=== PATIENT | female | born 1945 | race Caucasian/White ===

== ENCOUNTER 2018-11-08 03:55 | Inpatient (IN) | payer MEDICARE, BC ==
[~2018-11-08] VITALS: Ht 165.1 cm; Wt 69.3 kg
[2018-11-08] VITALS (67 sets, daily range): BP systolic 64–149; BP diastolic 42–103; PULSE 62–155; RESP 12–24
[~2018-11-08 03:55] MED LIST: ATORVASTATIN; FUROSEMIDE; LORAZEPAM; OXYBUTYNIN; PREM45 PO; TRAMADOL
[2018-11-08] MEDS ORDERED: DEXTROSE 50% 50 ML SYRINGE IV PRN ×6 (04:30→08:00)
[2018-11-08] MEDS ORDERED: HYDROCODONE/APAP (5/325) TAB GTB PRN (04:30)
[2018-11-08] MEDS ORDERED: SOD CHLORIDE 0.9% 1,000 ML IV ONE (04:30)
[2018-11-08] MEDS ORDERED: GLUCAGON 1 MG INJ IM PRN ×3 (04:30→08:00)
[2018-11-08] MEDS ORDERED: GLUCOSE GEL 15 GRAM TUBE PO PRN ×4 (05:00→08:00)
[2018-11-08] MEDS ORDERED: GLUCOSE GEL 15 GRAM TUBE BUCCAL PRN ×2 (05:00→08:00)
[2018-11-08] MEDS ORDERED: DIGOXIN 500 MCG INJ IV ONE ×3 (05:08→23:15)
[2018-11-08] MEDS ORDERED: ONDANSETRON 4 MG INJ IV PRN (05:30)
[2018-11-08] MEDS ORDERED: PENDING SANTYL ORDER FOR WOUND CARE XX PRN (05:30)
[2018-11-08] MEDS ORDERED: ZOLPIDEM 5 MG TAB PO PRN (05:30)
[2018-11-08] MEDS: SOD CHLORIDE 0.9% 1,000 ML IV SCH ×2 (05:53→14:43)
[2018-11-08] MEDS: LANSOPRAZOLE 30 MG CAP GTB SCH ×2 (06:48→17:33)
[2018-11-08] MEDS ORDERED: INSULIN ASPART [NOVOLOG] 3 ML PEN SC SCH (07:35)
[2018-11-08] MEDS: IPRATROPIUM (NEB) 0.5 MG/2.5 ML AMP HHN SCH ×3 (08:12→20:40)
[2018-11-08] MEDS: ALBUTEROL 0.083% (NEB) 2.5 MG/3 ML AMP HHN SCH ×3 (08:12→20:40)
[2018-11-08] MEDS: clonAZEPAM 0.5 MG TAB GTB SCH ×2 (08:21→20:35)
[2018-11-08] MEDS: ASCORBIC ACID 500 MG TAB GTB SCH ×2 (08:22→20:35)
[2018-11-08] MEDS: LACTOBACILLUS RHAMNOSUS CAP GTB SCH ×2 (08:22→20:35)
[2018-11-08] MEDS: ZINC SULFATE 220 MG CAP GTB SCH (08:22)
[2018-11-08] MEDS: MULTIVITAMINS 30 ML CUP GTB SCH (08:22)
[2018-11-08] MEDS: ASPIRIN 81 MG TAB GTB SCH ×2 (08:22→20:35)
[2018-11-08] MEDS: SERTRALINE 50 MG TAB GTB SCH (08:22)
[2018-11-08] MEDS: BACLOFEN 10 MG TAB GTB SCH (08:22)
[2018-11-08] MEDS: LEVETIRACETAM (100 MG/ML) 5ML CUP GTB SCH ×2 (08:22→20:36)
[2018-11-08] MEDS: CYANOCOBALAMIN 500 MCG TAB GTB SCH (08:22)
[2018-11-08] MEDS: DAKINS 0.0125%(1/40) 473 ML SOLUTION TP SCH ×2 (08:23→20:37)
[2018-11-08] MEDS: LISINOPRIL 5 MG TAB GTB SCH (08:29)
[2018-11-08] MEDS: POLYETHYLENE GLYCOL 17 GM PACKET GTB SCH ×2 (08:29→20:58)
[2018-11-08] MEDS: INSULIN ASPART [NOVOLOG] 3 ML PEN SC SCH ×4 (08:29→20:48)
[2018-11-08] MEDS: METOPROLOL 25 MG TAB GTB SCH ×2 (08:30→20:57)
[2018-11-08] MEDS: METOPROLOL 5 MG INJ IV SCH ×4 (08:30→20:58)
[2018-11-08] MEDS: CHOLECALCIFEROL 2,000 UNIT CAP GTB SCH (09:00)
[2018-11-08] MEDS: CEFTAZIDIME 2GM/50 ML (PMX) 50 ML IVPB SCH ×2 (09:45→17:33)
--- NOTE | 2018-11-08 11:47 | HP ---
Date/Time of Note Date/Time of Note DATE: 11/08/18 TIME: 11:15 Assessment/Plan VTE Prophylaxis Risk score (from [place])>0 risk: 7 SCD applied (from [place]): Yes SCD contraindicated: other Pharmacological prophylaxis: other Pharm contraindication: other Lines/Catheters IV [facility]ter Type (from [facility]): Mid Line Central line still needed: Yes Urinary Cath still in place: Yes Reason Cath still needed: urinary retention Assessment/Plan Assessment/Plan -Rapid Afib to Flutter; currently SR - admit to ICU - CARDIOLOGY CONSULT- Dr Monson notified - admission orders are done -Vent Dependent Respiratory Failure - Pulmonary consult- Dr Ko notified -Decub - right hip/sacrum; sp debridement - wound care consult - wound care per plastic sx - DIETARY consult -Penicillin and Morphine Allergy -Osteomyelitis right humeral head - ID Consult- Dr Pina notified - ortho consult appreciated - Azotemia - monitor Renal Functions; if elevated progressively- will get nephrology consult - SP stroke -Progressive supranuclear palsy - Diabetes -Glycemic control -Congestive heart failure, systolic, acute on chronic. - cardio on case -Hypotension, borderline. -Dysphagia with GT placement - aspiration precautions - Anemia of chronic disease- hgb stable 9.5 today - monitor CBC; S/S of bleeding - Acute metabolic and chronic encephalopathy - continue to monitor - On Keppra -seizure precautions - GI prophylaxis - on Prevacid - DVT prophylaxis - pt is on ASA 81 mg daily - Anticipate back to [place] when stable Critical care time spent is 55 minutes. Plan of care discussed with staff. Further recommendations based on clinical course. Patient is seen in collaboration with Dr. Shannon. Result Diagram: 11/08/18 0445 11/08/18 0445 Results 24hrs Laboratory Tests Test 11/08/18 04:45 11/08/18 08:21 White Blood Count 6.3 Red Blood Count 3.72 L Hemoglobin 9.5 L Hematocrit 31.4 L Mean Corpuscular Volume 84.4 Mean Corpuscular Hemoglobin 25.5 L Mean Corpuscular Hemoglobin Concent 30.3 L Red Cell Distribution Width 17.4 H Platelet Count 237 # Mean Platelet Volume 11.6 H Immature Granulocytes % 0.300 Neutrophils % 68.7 Lymphocytes % 19.1 Monocytes % 6.5 Eosinophils % 4.8 Basophils % 0.6 Nucleated Red Blood Cells % 0.0 Immature Granulocytes # 0.020 Neutrophils # 4.3 Lymphocytes # 1.2 Monocytes # 0.4 Eosinophils # 0.3 Basophils # 0.0 Nucleated Red Blood Cells # 0.0 Sodium Level 140 Potassium Level 4.6 Chloride Level 103 Carbon Dioxide Level 28 Anion Gap 9 Blood Urea Nitrogen 26 H Creatinine 0.34 L Est Glomerular Filtrat Rate mL/min Glucose Level 149 Lactic Acid Level 1.2 Calcium Level 9.2 Phosphorus Level 3.6 Magnesium Level 2.1 Total Bilirubin 0.2 Direct Bilirubin 0.00 Indirect Bilirubin 0.2 Aspartate Amino Transf (AST/SGOT) 14 L Alanine Aminotransferase (ALT/SGPT) 9 L Alkaline Phosphatase 167 H Total Protein 6.7 Albumin 3.2 L Globulin 3.50 H Albumin/Globulin Ratio 0.91 Bedside Glucose 101 HPI/ROS Admit Date/Time Admit Date/Time Nov 08, 2018 at 03:55 Hx of Present Illness This is a 73 years old female with progressive subnuclear palsy, chronic encephalopathy, dysphagia status post G-tube, chronic respiratory failure, status post tracheostomy, diabetes mellitus, osteomyelitis of the right humerus decubitus ulcer status post recent debridement. Also past history of cardiomyopathy with mildly depressed left ventricular ejection, approximately 40% to 45% by echo October 2018. Patient got transferred from [facility] as she developed rapid atrial fibrillation and hypertension and was transferred to [facility]. Patient is admitted in ICU. Patient has episodes of atrial fibrillation with rapid ventricular response and recently has converted to sinus rhythm with her SBP 101. The patient is not able to provide any history 2/2/ being chronic encephalopathic. Patient is admitted in ICU under Dr Shannon for further treatment and evaluation. All appropriate consult- Pulmonary, cardiology, general surgery are consulted. Plan of care dw staff. ROS Subjective hx not possible: pt non-verbal, pt critical status PMH/Family/Social Past Medical History Progressive supranuclear palsy Osteoarthritis Anemia Medical History: congestive heart failure (Diastolic), diabetes, hypertension Medications Current Medications Sodium Chloride 1,000 ml @ 100 mls/hr Q10H IV Last administered on 11/08/18at 05:53; Admin Dose 100 MLS/HR; Start 11/08/18 at 05:30 Acetaminophen (Tylenol Liquid) 650 mg Q6H PRN GTB PAIN AND/OR INFLAMMATION; Start 11/08/18 at 22:00 Albuterol (Proventil 0.083% (Neb)) 2.5 mg Q6H RESP THERAPY HHN Last administered on 11/08/18 08:12; Admin Dose 2.5 MG; Start 11/08/18 at 08:00 Ascorbic Acid (Vitamin C) 500 mg BID GTB Last administered on 11/08/18 08:22; Admin Dose 500 MG; Start 11/08/18 at 09:00 Aspirin (Aspirin) 81 mg BID GTB Last administered on 11/08/18 08:22; Admin Dose 81 MG; Start 11/08/18 at 09:00 Baclofen (Lioresal) 20 mg DAILY GTB Last administered on 11/08/18 08:22; Admin Dose 20 MG; Start 11/08/18 at 09:00 Ceftazidime/ Dextrose 50 ml @ 100 mls/hr Q8H IVPB Last administered on 11/08/18 09:45; Admin Dose 100 MLS/HR; Start 11/08/18 at 10:00 Cholecalciferol (Vitamin D) 2,000 unit DAILY GTB ; Start 11/08/18 at 09:00 Clonazepam (Klonopin) 0.5 mg BID GTB Last administered on 11/08/18 08:21; Admin Dose 0.5 MG; Start 11/08/18 at 09:00 Cyanocobalamin (Vitamin B12) 500 mcg DAILY GTB Last administered on 11/08/18 08:22; Admin Dose 500 MCG; Start 11/08/18 at 09:00 Acetaminophen/ Hydrocodone Bitart ([place] (5/325)) 1 tab Q4H PRN GTB MODERATE PAIN LEVEL 4-6; Start 11/08/18 at 04:30 Miscellaneous Information 1 ea NOTE XX ; Start 11/08/18 at 05:00 Ipratropium [place] (Atrovent 0.02% (Neb)) 0.5 mg Q6HWA RESP THERAPY HHN Last administered on 11/08/18 08:12; Admin Dose 0.5 MG; Start 11/08/18 at 08:00 Lactobacillus Acidophilus/ Rhamnosus (Culturelle) 1 cap BID GTB Last administered on 11/08/18 08:22; Admin Dose 1 CAP; Start 11/08/18 at 09:00 Lansoprazole (Prevacid) 30 mg BID@,18 GTB Last administered on 11/08/18at 06:48; Admin Dose 30 MG; Start 11/08/18 at 06:00 Levetiracetam (Keppra Liquid) 500 mg BID GTB Last administered on 11/08/18at 08:22; Admin Dose 500 MG; Start 11/08/18 at 09:00 Lisinopril (Zestril) 5 mg DAILY GTB ; Start 11/08/18 at 09:00 Metoprolol Tartrate (Lopressor) 25 mg BID GTB ; Start 11/08/18 at 09:00 Multivitamins (Multivitamin) 30 ml DAILY GTB Last administered on 11/08/18at 08:22; Admin Dose 30 ML; Start 11/08/18 at 09:00 Ondansetron HCl (Zofran Inj) 4 mg Q6H PRN IV NAUSEA AND/OR VOMITING; Start 11/08/18 at 05:30 Polyethylene Glycol (Miralax) 17 gm BID GTB ; Start 11/08/18 at 09:00 Sertraline HCl (Zoloft) 50 mg DAILY GTB Last administered on 11/08/18at 08:22; Admin Dose 50 MG; Start 11/08/18 at 09:00 Sodium Hypochlorite (Dakins Diluted (40)) 1 applic BID TP Last administered on 11/08/18at 08:23; Admin Dose 1 APPLIC; Start 11/08/18 at 09:00 Zinc Sulfate (Zinc Sulfate) 220 mg DAILY GTB Last administered on 11/08/18at 08:22; Admin Dose 220 MG; Start 11/08/18 at 09:00 Zolpidem Tartrate (Ambien) 5 mg HS PRN PO INSOMNIA; Start 11/08/18 at 05:30 Miscellaneous Information (Pending Santyl Order For Wound Care) This patient donato... PRN PRN XX WOUND CARE; Start 11/08/18 at 05:30 Digoxin (Digoxin) 250 mcg ONCE ONCE IV ; Start 11/08/18 at 23:15; Stop 11/08/18 at 23:16 Metoprolol Tartrate (Lopressor) 5 mg Q4H IV ; Start 11/08/18 at 09:00 Insulin Aspart (Novolog Insulin Pen) NOVOLOG *MILD* ALGORI... Q4 SC ; Start 11/08/18 at 09:00 Miscellaneous Information 1 ea NOTE XX ; Start 11/08/18 at 08:00 Glucose (Glutose) 15 gm Q15M PRN PO DECREASED GLUCOSE; Start 11/08/18 at 08:00 Glucose (Glutose) 22.5 gm Q15M PRN PO DECREASED GLUCOSE; Start 11/08/18 at 08:00 Dextrose (D50w Syringe) 25 ml Q15M PRN IV DECREASED GLUCOSE; Start 11/08/18 at 08:00 Dextrose (D50w Syringe) 50 ml Q15M PRN IV DECREASED GLUCOSE; Start 11/08/18 at 08:00 Glucagon (Glucagen) 1 mg Q15M PRN IM DECREASED GLUCOSE; Start 11/08/18 at 08:00 Glucose (Glutose) 15 gm Q15M PRN BUCCAL DECREASED GLUCOSE; Start 11/08/18 at 08:00 Coded Allergies: Penicillins (Verified Allergy, Unknown, 07/06/13) morphine (Verified Adverse Reaction, Mild, "LOOPY", 10/08/18) Uncoded Allergies: PLASTIC TAPE (Allergy, Unknown, 04/01/07) Past Surgical History SP hysterectomy SP trach 10/04/2018 SP gt placement SP excisional debridement - right hip and flfap reconstruction and Girdlestone procedure SP excisional debridement and removal of necrotic tissue on 09/2018 SP debridement right hip and sacral ulcers Family History Significant Family History: other (No history of sudden cardiac or early CAD) Social History Alcohol Use: none Smoking Status: Unknown if ever smoked Drug Use: none Exam/Review of Systems Vital Signs Vitals Vital Signs Date Temp Pulse Resp B/P (MAP) Pulse Ox O2 O2 Flow FiO2 Time Delivery Rate 11/08/18 76 20 101/61 100 Trach 10:45 (74) Collar 11/08/18 28 08:15 11/08/18 97.8 08:00 11/08/18 5.0 07:50 Intake and Output 11/07/18 11/07/18 11/08/18 1414:59 22:59 06:59 IntakeIntake Total 100 ml OutputOutput Total 550 ml BalanceBalance -450 ml Exam Constitutional: well developed, non-verbal, frail Psych: nl mood/affect Head: atraumatic Eyes: nl lids, nl sclera ENMT: nl external ears & nose Neck: other (trach) Respiratory: diminished breath sounds Cardiovascular: nl pulses, other (s1s2) Gastrointestinal: soft, non-tender, other Musculoskeletal: joint tenderness, muscle weakness, range of motion, other (BUE/ BLE contractures) Extremities: edema (trace edema ble) Neurological: unresponsive Skin: other (decubs) Lymph: nontender NADEEN CHO Nov 08, 2018 11:25
[2018-11-08] MEDS ORDERED: AMIODARONE 900 MG in DEXTROSE 5% 482 ML IV SCH (12:30)
[2018-11-08] MEDS ORDERED: AMIODARONE 150MG/D5W BOLUS 100 ML IV ONE (12:30)
--- NOTE | 2018-11-08 14:02 | CONS ---
Assessment/Plan Assessment/Plan Assessment/Plan (Daily) Chest x-ray is essentially unremarkable. Patient is on amiodarone drip. Assessment recommendations; 1. Patient with a history of severe chronic encephalopathy and chronic respiratory failure maintained on T-piece admitted for onset of A. fib with RVR. Converted to sinus rhythm. 2. Possibly sepsis from multiple decubitus ulcers, currently on appropriate antimicrobial regimen. 3. Hypertension, patient to receive a fluid bolus. May require pressor support. 4. History of stable seizure disorder. 5. Mild anemia. Give another half a liter normal saline fluid bolus. Obtain ABG. Consultation Date/Type/Reason Admit Date/Time Nov 08, 2018 at 03:55 Date of Consultation: Nov 08, 2018 Type of Consult Pulmonary/critical care Patient is a 73-year-old lady with history of severe chronic enteropathy and chronic respiratory failure transferred from [facility] because of onset of atrial fibrillation with RVR. Patient has history of advanced dementia and was unable to give any history by herself whatsoever. Patient however did not appear to be in any distress. Past medical history; 1. Severe encephalopathy 2. Chronic respiratory failure, maintained on T-piece. 3. Decubitus ulcers. 4. Anemia. 5. Seizure disorder. 6. G-tube placement. Medications; reviewed. Allergies; as outlined above. Family history, occupational history, social history is not available. Review of systems; unable to be obtained. General exam; elderly woman, on T-piece via tracheostomy, unresponsive, currently in no distress. Date/Time of Note DATE: 11/08/18 TIME: 13:58 Past Medical History Medical History: congestive heart failure (Diastolic), diabetes, hypertension Home Meds Reported Medications [Tramadol] No Conflict Check 06/26/13 [Oxybutynin] No Conflict Check 02/18/13 [Furosemide] No Conflict Check 02/18/13 [Atorvastatin] No Conflict Check 02/18/13 [Lorazepam] No Conflict Check 02/18/13 Estrogens Conjugated* (Premarin*) 0.45 Mg Tablet, 1.5 MG PO DAILY 02/18/13 Medications Current Medications Sodium Chloride 1,000 ml @ 100 mls/hr Q10H IV Last administered on 11/08/18at 05:53; Admin Dose 100 MLS/HR; Start 11/08/18 at 05:30 Acetaminophen (Tylenol Liquid) 650 mg Q6H PRN GTB PAIN AND/OR INFLAMMATION; Start 11/08/18 at 22:00 Albuterol (Proventil 0.083% (Neb)) 2.5 mg Q6H RESP THERAPY HHN Last administered on 11/08/18 08:12; Admin Dose 2.5 MG; Start 11/08/18 at 08:00 Ascorbic Acid (Vitamin C) 500 mg BID GTB Last administered on 11/08/18 08:22; Admin Dose 500 MG; Start 11/08/18 at 09:00 Aspirin (Aspirin) 81 mg BID GTB Last administered on 11/08/18 08:22; Admin Dose 81 MG; Start 11/08/18 at 09:00 Baclofen (Lioresal) 20 mg DAILY GTB Last administered on 11/08/18 08:22; Admin Dose 20 MG; Start 11/08/18 at 09:00 Ceftazidime/ Dextrose 50 ml @ 100 mls/hr Q8H IVPB Last administered on 11/08/18 09:45; Admin Dose 100 MLS/HR; Start 11/08/18 at 10:00 Cholecalciferol (Vitamin D) 2,000 unit DAILY GTB ; Start 11/08/18 at 09:00 Clonazepam (Klonopin) 0.5 mg BID GTB Last administered on 11/08/18 08:21; Admin Dose 0.5 MG; Start 11/08/18 at 09:00 Cyanocobalamin (Vitamin B12) 500 mcg DAILY GTB Last administered on 11/08/18 08:22; Admin Dose 500 MCG; Start 11/08/18 at 09:00 Acetaminophen/ Hydrocodone Bitart ([place] (5/325)) 1 tab Q4H PRN GTB MODERATE PAIN LEVEL 4-6; Start 11/08/18 at 04:30 Miscellaneous Information 1 ea NOTE XX ; Start 11/08/18 at 05:00 Ipratropium [place] (Atrovent 0.02% (Neb)) 0.5 mg Q6HWA RESP THERAPY HHN Last administered on 11/08/18 08:12; Admin Dose 0.5 MG; Start 11/08/18 at 08:00 Lactobacillus Acidophilus/ Rhamnosus (Culturelle) 1 cap BID GTB Last adm inistered on 11/08/18 08:22; Admin Dose 1 CAP; Start 11/08/18 at 09:00 Lansoprazole (Prevacid) 30 mg BID@,18 GTB Last administered on 11/08/18at 06:48; Admin Dose 30 MG; Start 11/08/18 at 06:00 Levetiracetam (Keppra Liquid) 500 mg BID GTB Last administered on 11/08/18 08:22; Admin Dose 500 MG; Start 11/08/18 at 09:00 Lisinopril (Zestril) 5 mg DAILY GTB ; Start 11/08/18 at 09:00 Metoprolol Tartrate (Lopressor) 25 mg BID GTB ; Start 11/08/18 at 09:00 Multivitamins (Multivitamin) 30 ml DAILY GTB Last administered on 11/08/18 08:22; Admin Dose 30 ML; Start 11/08/18 at 09:00 Ondansetron HCl (Zofran Inj) 4 mg Q6H PRN IV NAUSEA AND/OR VOMITING; Start 11/08/18 at 05:30 Polyethylene Glycol (Miralax) 17 gm BID GTB ; Start 11/08/18 at 09:00 Sertraline HCl (Zoloft) 50 mg DAILY GTB Last administered on 11/08/18 08:22; Admin Dose 50 MG; Start 11/08/18 at 09:00 Sodium Hypochlorite (Dakins Diluted (40)) 1 applic BID TP Last administered on 11/08/18 08:23; Admin Dose 1 APPLIC; Start 11/08/18 at 09:00 Zinc Sulfate (Zinc Sulfate) 220 mg DAILY GTB Last administered on 11/08/18 08:22; Admin Dose 220 MG; Start 11/08/18 at 09:00 Zolpidem Tartrate (Ambien) 5 mg HS PRN PO INSOMNIA; Start 11/08/18 at 05:30 Miscellaneous Information (Pending Santyl Order For Wound Care) This patient donato... PRN PRN XX WOUND CARE; Start 11/08/18 at 05:30 Digoxin (Digoxin) 250 mcg ONCE ONCE IV ; Start 11/08/18 at 23:15; Stop 11/08/18 at 23:16 Metoprolol Tartrate (Lopressor) 5 mg Q4H IV ; Start 11/08/18 at 09:00 Insulin Aspart (Novolog Insulin Pen) NOVOLOG *MILD* ALGORI... Q4 SC ; Start 11/08/18 at 09:00 Miscellaneous Information 1 ea NOTE XX ; Start 11/08/18 at 08:00 Glucose (Glutose) 15 gm Q15M PRN PO DECREASED GLUCOSE; Start 11/08/18 at 08:00 Glucose (Glutose) 22.5 gm Q15M PRN PO DECREASED GLUCOSE; Start 11/08/18 at 08:00 Dextrose (D50w Syringe) 25 ml Q15M PRN IV DECREASED GLUCOSE; Start 11/08/18 at 08:00 Dextrose (D50w Syringe) 50 ml Q15M PRN IV DECREASED GLUCOSE; Start 11/08/18 at 08:00 Glucagon (Glucagen) 1 mg Q15M PRN IM DECREASED GLUCOSE; Start 11/08/18 at 08:00 Glucose (Glutose) 15 gm Q15M PRN BUCCAL DECREASED GLUCOSE; Start 11/08/18 at 08:00 Amiodarone HCl 900 mg/Dextrose 500 ml @ 0 mls/hr Q0M IV ; Start 11/08/18 at 12:30 Allergies: Coded Allergies: Penicillins (Verified Allergy, Unknown, 07/06/13) morphine (Verified Adverse Reaction, Mild, "LOOPY", 10/08/18) Uncoded Allergies: PLASTIC TAPE (Allergy, Unknown, 04/01/07) Exam/Review of Systems Exam Vitals Vital Signs Date Temp Pulse Resp B/P (MAP) Pulse Ox O2 O2 Flow FiO2 Time Delivery Rate 11/08/18 66 15 80/47 (58) 100 Trach 13:30 Collar 11/08/18 7.0 28 12:17 11/08/18 99.0 12:00 Intake and Output 11/07/18 11/07/18 11/08/18 1515:00 23:00 07:00 IntakeIntake Total 200 ml OutputOutput Total 750 ml BalanceBalance -550 ml Exam H EENT exam; supple neck, no JVD. No lymphadenopathy. Midline trachea. No thyromegaly. Tracheostomy in place. Attached to T piece. Insertion site is clean. Chest exam; diminished but clear breath sounds. S1-S2 audible, no murmurs. Regular rhythm. Abdomen exam; soft, nondistended. No organomegaly. G-tube in place. Bowel sounds audible. Extremity exam; no edema. 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 TILE PICKER exam; patient is unresponsive. Results Result Diagram: 11/08/185 11/08/18 0445 Results 24hrs Laboratory Tests Test 11/08/18 04:45 11/08/18 08:21 11/08/18 12:20 White Blood Count 6.3 Red Blood Count 3.72 L Hemoglobin 9.5 L Hematocrit 31.4 L Mean Corpuscular Volume 84.4 Mean Corpuscular Hemoglobin 25.5 L Mean Corpuscular Hemoglobin Concent 30.3 L Red Cell Distribution Width 17.4 H Platelet Count 237 # Mean Platelet Volume 11.6 H Immature Granulocytes % 0.300 Neutrophils % 68.7 Lymphocytes % 19.1 Monocytes % 6.5 Eosinophils % 4.8 Basophils % 0.6 Nucleated Red Blood Cells % 0.0 Immature Granulocytes # 0.020 Neutrophils # 4.3 Lymphocytes # 1.2 Monocytes # 0.4 Eosinophils # 0.3 Basophils # 0.0 Nucleated Red Blood Cells # 0.0 Sodium Level 140 Potassium Level 4.6 Chloride Level 103 Carbon Dioxide Level 28 Anion Gap 9 Blood Urea Nitrogen 26 H Creatinine 0.34 L Est Glomerular Filtrat Rate mL/min Glucose Level 149 Lactic Acid Level 1.2 Calcium Level 9.2 Phosphorus Level 3.6 Magnesium Level 2.1 Total Bilirubin 0.2 Direct Bilirubin 0.00 Indirect Bilirubin 0.2 Aspartate Amino Transf (AST/SGOT) 14 L Alanine Aminotransferase (ALT/SGPT) 9 L Alkaline Phosphatase 167 H Total Protein 6.7 Albumin 3.2 L Globulin 3.50 H Albumin/Globulin Ratio 0.91 Bedside Glucose 101 115 Medications Medication Current Medications Sodium Chloride 1,000 ml @ 100 mls/hr Q10H IV Last administered on 11/08/18at 05:53; Admin Dose 100 MLS/HR; Start 11/08/18 at 05:30 Acetaminophen (Tylenol Liquid) 650 mg Q6H PRN GTB PAIN AND/OR INFLAMMATION; Start 11/08/18 at 22:00 Albuterol (Proventil 0.083% (Neb)) 2.5 mg Q6H RESP THERAPY HHN Last administered on 11/08/18at 08:12; Admin Dose 2.5 MG; Start 11/08/18 at 08:00 Ascorbic Acid (Vitamin C) 500 mg BID GTB Last administered on 11/08/18 08:22; Admin Dose 500 MG; Start 11/08/18 at 09:00 Aspirin (Aspirin) 81 mg BID GTB Last administered on 11/08/18 08:22; Admin Dose 81 MG; Start 11/08/18 at 09:00 Baclofen (Lioresal) 20 mg DAILY GTB Last administered on 11/08/18 08:22; Admin Dose 20 MG; Start 11/08/18 at 09:00 Ceftazidime/ Dextrose 50 ml @ 100 mls/hr Q8H IVPB Last administered on 11/08/18 09:45; Admin Dose 100 MLS/HR; Start 11/08/18 at 10:00 Cholecalciferol (Vitamin D) 2,000 unit DAILY GTB ; Start 11/08/18 at 09:00 Clonazepam (Klonopin) 0.5 mg BID GTB Last administered on 11/08/18 08:21; Admin Dose 0.5 MG; Start 11/08/18 at 09:00 Cyanocobalamin (Vitamin B12) 500 mcg DAILY GTB Last administered on 11/08/18 08:22; Admin Dose 500 MCG; Start 11/08/18 at 09:00 Acetaminophen/ Hydrocodone Bitart ([place] (5/325)) 1 tab Q4H PRN GTB MODERATE PAIN LEVEL 4-6; Start 11/08/18 at 04:30 Miscellaneous Information 1 ea NOTE XX ; Start 11/08/18 at 05:00 Ipratropium [place] (Atrovent 0.02% (Neb)) 0.5 mg Q6HWA RESP THERAPY HHN Last administered on 11/08/18 08:12; Admin Dose 0.5 MG; Start 11/08/18 at 08:00 Lactobacillus Acidophilus/ Rhamnosus (Culturelle) 1 cap BID GTB Last administered on 11/08/18 08:22; Admin Dose 1 CAP; Start 11/08/18 at 09:00 Lansoprazole (Prevacid) 30 mg BID@06,18 GTB Last administered on 11/08/18 06:48; Admin Dose 30 MG; Start 11/08/18 at 06:00 Levetiracetam (Keppra Liquid) 500 mg BID GTB Last administered on 11/08/18at 08:22; Admin Dose 500 MG; Start 11/08/18 at 09:00 Lisinopril (Zestril) 5 mg DAILY GTB ; Start 11/08/18 at 09:00 Metoprolol Tartrate (Lopressor) 25 mg BID GTB ; Start 11/08/18 at 09:00 Multivitamins (Multivitamin) 30 ml DAILY GTB Last administered on 11/08/18at 08:22; Admin Dose 30 ML; Start 11/08/18 at 09:00 Ondansetron HCl (Zofran Inj) 4 mg Q6H PRN IV NAUSEA AND/OR VOMITING; Start 11/08/18 at 05:30 Polyethylene Glycol (Miralax) 17 gm BID GTB ; Start 11/08/18 at 09:00 Sertraline HCl (Zoloft) 50 mg DAILY GTB Last administered on 11/08/18at 08:22; Admin Dose 50 MG; Start 11/08/18 at 09:00 Sodium Hypochlorite (Dakins Diluted (1/40)) 1 applic BID TP Last administered on 11/08/18at 08:23; Admin Dose 1 APPLIC; Start 11/08/18 at 09:00 Zinc Sulfate (Zinc Sulfate) 220 mg DAILY GTB Last administered on 11/08/18at 08:22; Admin Dose 220 MG; Start 11/08/18 at 09:00 Zolpidem Tartrate (Ambien) 5 mg HS PRN PO INSOMNIA; Start 11/08/18 at 05:30 Miscellaneous Information (Pending [facility] Order For Wound Care) This patient donato... PRN PRN XX WOUND CARE; Start 11/08/18 at 05:30 Digoxin (Digoxin) 250 mcg ONCE ONCE IV ; Start 11/08/18 at 23:15; Stop 11/08/18 at 23:16 Metoprolol Tartrate (Lopressor) 5 mg Q4H IV ; Start 11/08/18 at 09:00 Insulin Aspart (Novolog Insulin Pen) NOVOLOG *MILD* ALGORI... Q4 SC ; Start 11/08/18 at 09:00 Miscellaneous Information 1 ea NOTE XX ; Start 11/08/18 at 08:00 Glucose (Glutose) 15 gm Q15M PRN PO DECREASED GLUCOSE; Start 11/08/18 at 08:00 Glucose (Glutose) 22.5 gm Q15M PRN PO DECREASED GLUCOSE; Start 11/08/18 at 08:00 Dextrose (D50w Syringe) 25 ml Q15M PRN IV DECREASED GLUCOSE; Start 11/08/18 at 08:00 Dextrose (D50w Syringe) 50 ml Q15M PRN IV DECREASED GLUCOSE; Start 11/08/18 at 08:00 Glucagon (Glucagen) 1 mg Q15M PRN IM DECREASED GLUCOSE; Start 11/08/18 at 08:00 Glucose (Glutose) 15 gm Q15M PRN BUCCAL DECREASED GLUCOSE; Start 11/08/18 at 08:00 Amiodarone HCl 900 mg/Dextrose 500 ml @ 0 mls/hr Q0M IV ; Start 11/08/18 at 12:30 LINH TEJADA Nov 08, 2018 14:02
[2018-11-08] MEDS: ALBUMIN HUMAN 25% 100 ML IV SCH ×2 (15:19→22:46)
[2018-11-08] MEDS ORDERED: LIDOCAINE 1% (MPF) 5 ML VIAL SC ONE (15:30)
[2018-11-08] MEDS ORDERED: NORepinephrine 8MG/250 ML (PMX 250 ML IV SCH (15:30)
--- NOTE | 2018-11-08 18:01 | CONS ---
DATE OF ADMISSION: 11/08/2018 DATE OF CONSULTATION: 11/08/2018 REASON FOR CONSULTATION: Paroxysmal atrial fibrillation, atrial flutter after response. REQUESTING PHYSICIAN: Bryon Shannon M.D. HISTORY OF PRESENT ILLNESS: Ms. Rosales is a 73-year-old female with a history of chronic encephalo stacie, dysphagia status post G-tube, chronic respiratory failure, status post tracheostomy, diabetes mellitus, progressive supranuclear palsy, osteomyelitis of the right humerus decubitus ulcer status p ost recent debridement, cardiomyopathy with mildly depressed left ventricular ejection, approximately 40% to 45% by echo October 2018, who had been at [facility] and developed rapid atria l fibrillation and hypertension and was subsequently transferred to [facility] in [facility]. Since arrival, the patient has had recurrent bouts of atrial fibrillation with rapid ventricular response, most notably recently has converted to sinus rhythm and has had marginal blood pressures f rom systolic 80 to approximately 105. The patient at this time is chronic encephalopathic and does n ot respond to questions pertaining to chest pain or shortness of breath, PAST MEDICAL HISTORY: As above in HPI. MEDICATIONS CURRENTLY IN HOSPITAL: 1. Digoxin ____ IV push x1. 2. Vitamin C 500 mg b.i.d. 2. Aspirin 81 mg daily. 3. Baclofen. 4. Klonopin. 5. B12. 6. Keppra 500 b.i.d. 7. Zestril 5 mg daily. 8. Metoprolol 25 b.i.d. 9. Multivite. 10. Sodium hydrochloride ___ IV push. 8. Ambien p.r.n. 9. Mcgrath p.r.n. ALLERGIES 1. PENICILLIN. 2. MORPHINE. SOCIAL HISTORY: No current tobacco, ETOH or illicit drug use. FAMILY HISTORY: No history of sudden cardiac or early CAD. REVIEW OF SYSTEMS: As above in HPI. CONSTITUTIONAL: No fevers or chills. PULMONARY: Chronic respiratory failure, status post trach. GASTROINTESTINAL: Dysphagia, status post G-tube. GENITOURINARY: No hematuria. MUSCULOSKELETAL: Degenerative joint disease. PSYCHIATRIC: No documented psych history. NEUROLOGIC: Encephalopathy. ENDOCRINE: No documented history of diabetes mellitus. HEMATOLOGIC: Anemia. PHYSICAL EXAMINATION: VITAL SIGNS: Temperature of 97.8, blood pressure most recently 105.4, pulse 78, respiratory rate 21, satting 100%. GENERAL: The patient is awake, but not communicative, encephalopathic. NECK: Tracheostomy in place. CHEST: Upper airway transmitted rhonchus sounds. HEART: Regular rate and rhythm. Normal S1, S2, I/ systolic murmur, appear mild. ABDOMEN: Positive bowel sounds, soft, positive G-tube. EXTREMITIES: Contracted. Trace edema, 1+ pulses bilateral posterior tibial. LABORATORY DATA: Most recently from today, white count 6.3, hemoglobin 9.5, platelet count 237. Sod ium 140, potassium 4.6, creatinine 0.3, BUN 26, AST 14, ALT 9. IMAGING STUDIES: Chest x-ray from the 5th revealing new mild pulmonary vascular congestion and mild cardiomegaly. ECG: From the 5th revealed atrial fibrillation and flutter, rate of 127, normal axis, normal interva ls, nonspecific ST and T abnormalities. IMPRESSION: 1. Paroxysmal atrial fibrillation flutter with rapid ventricular response, currently in sinus rhythm but as of this morning was in rapid atrial fibrillation and flutter. 2. Hypotension, borderline. 3. Congestive heart failure, systolic, acute on chronic. 4. Cardiomyopathy with mildly depressed left ventricular ejection fraction, last approximately 40% t o 45% by echo 10/2018. 5. Encephalopathy, chronic. 6. Progressive supranuclear palsy. 7. Anemia. 8. Diabetes mellitus. RECOMMENDATIONS: 1. At this time, we would maintain patient in ICU on close monitoring. 2. We would complete workup of the heart, which shows paced complexes are not resulting in acute cor onary syndrome such as acute myocardial infarction. 3. We would continue the patient's current aspirin prophylaxis against cardiovascular events and con insurance underwriter initiation of full dose systemic anticoagulation as a contraindication exist. 4. Continue the patient's low-dose metoprolol as tolerated and we will decrease the patient's dose o f Zestril. 5. We will initiate the patient on amiodarone in an attempt to maintain the patient in sinus rhythm at this time. 6. Give patient gentle Lasix diuresis, following strict I's and O's to grade diuresis closely. 7. Continue the patient's bronchodilators. Continue the patient's antibiotics and follow up all cul ture data. Thank you for allowing me to take part in the care of this patient. I will continue to follow her ve ry closely with you, with further recommendations to be made as the patient progresses through her in patient hospital clinical course. Dictated By: MAITE MONTGOMERY/AMBREEN Conf#: [id number] DID#: [id number] CC: BRYON SHANNON MD;*EndCC*
--- NOTE | 2018-11-08 19:31 | CONS ---
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 s/p IV vancomycin x 6 weeks - colonization of the wound by pseudomonas - DM - A fib with RVR recommendations - ordered/pending: blood cultures x2, lactic acid, urinalysis and urine culture, resp culture - pseudomonas was a colonizer of the wound, and therefore ceftazidime may be discontinued - wound care - management d/w Pt's RN Katalina the critical care time I took to care for this Pt today was from 1830 to 1900 Consultation Date/Type/Reason Admit Date/Time Nov 08, 2018 at 03:55 Date of Consultation: Nov 08, 2018 Type of Consult ID Reason for Consultation h/o OM of R femoral head Requesting Provider: NADEEN CHO Date/Time of Note DATE: 11/08/18 TIME: 19:20 Hx of Present Illness This is a 74 yo female with progressive supranuclear palsy and chronic encephalopathy, who was originally admitted at [facility] for infection of decubitus wound of R hip. Pt was found out to have OM of R femoral head due to enterococci, and completed IV vancomycin for that at [facility]. Pt was briefly sent to [facility] for repeat debridement. The wound was deep but reportedly clean. As a result, antibiotics were discontinued. On 11/08/2018, Pt developed A fib with RVR and marginal BP. As a result Pt was transferred to ICU at [facility]. After transfer, her rhythm has been converted to sinus. As Pt was loaded on amiodarone, her BP started to decline. MANUEL Cho requested ID consultation on this Pt. Subjective hx not possible: pt non-verbal, pt critical, pt critical status Past Medical History Medical History: congestive heart failure (Diastolic), diabetes, hypertension Home Meds Reported Medications [Tramadol] No Conflict Check 06/26/13 [Oxybutynin] No Conflict Check 02/18/13 [Furosemide] No Conflict Check 02/18/13 [Atorvastatin] No Conflict Check 02/18/13 [Lorazepam] No Conflict Check 02/18/13 Estrogens Conjugated* (Premarin*) 0.45 Mg Tablet, 1.5 MG PO DAILY 02/18/13 Medications Current Medications Sodium Chloride 1,000 ml @ 100 mls/hr Q10H IV Last administered on 4/5/19at 14:43; Admin Dose 100 MLS/HR; Start 11/08/18 at 05:30 Acetaminophen (Tylenol Liquid) 650 mg Q6H PRN GTB PAIN AND/OR INFLAMMATION; Start 11/08/18 at 22:00 Albuterol (Proventil 0.083% (Neb)) 2.5 mg Q6H RESP THERAPY HHN Last administered on 11/08/18 14:28; Admin Dose 2.5 MG; Start 11/08/18 at 08:00 Ascorbic Acid (Vitamin C) 500 mg BID GTB Last administered on 11/08/18 08:22; Admin Dose 500 MG; Start 11/08/18 at 09:00 Aspirin (Aspirin) 81 mg BID GTB Last administered on 11/08/18 08:22; Admin Dose 81 MG; Start 11/08/18 at 09:00 Baclofen (Lioresal) 20 mg DAILY GTB Last administered on 11/08/18 08:22; Admin Dose 20 MG; Start 11/08/18 at 09:00 Cholecalciferol (Vitamin D) 2,000 unit DAILY GTB ; Start 11/08/18 at 09:00 Clonazepam (Klonopin) 0.5 mg BID GTB Last administered on 11/08/18 08:21; Admin Dose 0.5 MG; Start 11/08/18 at 09:00 Cyanocobalamin (Vitamin B12) 500 mcg DAILY GTB Last administered on 11/08/18 08:22; Admin Dose 500 MCG; Start 11/08/18 at 09:00 Acetaminophen/ Hydrocodone Bitart ([place] (5/325)) 1 tab Q4H PRN GTB MODERATE PAIN LEVEL 4-6; Start 11/08/18 at 04:30 Miscellaneous Information 1 ea NOTE XX ; Start 11/08/18 at 05:00 Ipratropium [place] (Atrovent 0.02% (Neb)) 0.5 mg Q6HWA RESP THERAPY HHN Last administered on 11/08/18 14:28; Admin Dose 0.5 MG; Start 11/08/18 at 08:00 Lactobacillus Acidophilus/ Rhamnosus (Culturelle) 1 cap BID GTB Last adm inistered on 11/08/18 08:22; Admin Dose 1 CAP; Start 11/08/18 at 09:00 Lansoprazole (Prevacid) 30 mg BID@06,18 GTB Last administered on 11/08/18at 17:33; Admin Dose 30 MG; Start 11/08/18 at 06:00 Levetiracetam (Keppra Liquid) 500 mg BID GTB Last administered on 11/08/18 08:22; Admin Dose 500 MG; Start 11/08/18 at 09:00 Lisinopril (Zestril) 5 mg DAILY GTB ; Start 11/08/18 at 09:00 Metoprolol Tartrate (Lopressor) 25 mg BID GTB ; Start 11/08/18 at 09:00 Multivitamins (Multivitamin) 30 ml DAILY GTB Last administered on 11/08/18 08:22; Admin Dose 30 ML; Start 11/08/18 at 09:00 Ondansetron HCl (Zofran Inj) 4 mg Q6H PRN IV NAUSEA AND/OR VOMITING; Start 11/08/18 at 05:30 Polyethylene Glycol (Miralax) 17 gm BID GTB ; Start 11/08/18 at 09:00 Sertraline HCl (Zoloft) 50 mg DAILY GTB Last administered on 11/08/18 08:22; Admin Dose 50 MG; Start 11/08/18 at 09:00 Sodium Hypochlorite (Dakins Diluted (40)) 1 applic BID TP Last administered on 11/08/18at 08:23; Admin Dose 1 APPLIC; Start 11/08/18 at 09:00 Zinc Sulfate (Zinc Sulfate) 220 mg DAILY GTB Last administered on 11/08/18at 08:22; Admin Dose 220 MG; Start 11/08/18 at 09:00 Zolpidem Tartrate (Ambien) 5 mg HS PRN PO INSOMNIA; Start 11/08/18 at 05:30 Miscellaneous Information (Pending [facility] Order For Wound Care) This patient donato... PRN PRN XX WOUND CARE; Start 11/08/18 at 05:30 Digoxin (Digoxin) 250 mcg ONCE ONCE IV ; Start 11/08/18 at 23:15; Stop 11/08/18 at 23:16 Metoprolol Tartrate (Lopressor) 5 mg Q4H IV ; Start 11/08/18 at 09:00 Insulin Aspart (Novolog Insulin Pen) NOVOLOG *MILD* ALGORI... Q4 SC Last administered on 11/08/18at 17:40; Admin Dose 1 UNIT; Start 11/08/18 at 09:00 Miscellaneous Information 1 ea NOTE XX ; Start 11/08/18 at 08:00 Glucose (Glutose) 15 gm Q15M PRN PO DECREASED GLUCOSE; Start 11/08/18 at 08:00 Glucose (Glutose) 22.5 gm Q15M PRN PO DECREASED GLUCOSE; Start 11/08/18 at 08:00 Dextrose (D50w Syringe) 25 ml Q15M PRN IV DECREASED GLUCOSE; Start 11/08/18 at 08:00 Dextrose (D50w Syringe) 50 ml Q15M PRN IV DECREASED GLUCOSE; Start 11/08/18 at 08:00 Glucagon (Glucagen) 1 mg Q15M PRN IM DECREASED GLUCOSE; Start 11/08/18 at 08:00 Glucose (Glutose) 15 gm Q15M PRN BUCCAL DECREASED GLUCOSE; Start 11/08/18 at 08:00 Amiodarone HCl 900 mg/Dextrose 500 ml @ 0 mls/hr Q0M IV Last administered on 11/08/18at 14:43; Admin Dose 33.3 MLS/HR; Start 11/08/18 at 12:30 Albumin Human 100 ml @ 100 mls/hr Q8H IV Last administered on 11/08/18at 15:19; Admin Dose 100 MLS/HR; Start 11/08/18 at 15:30; Stop 11/09/18 at 08:29 Norepinephrine 250 ml @ 1.875 mls/ hr TITRATE IV Last administered on 11/08/18at 15:44; Admin Dose 7.5 MLS/HR; Start 11/08/18 at 15:30 IV Flush (NS 10 ml) 10 ml PRN PRN IV IV PROTOCOL; Start 11/08/18 at 18:00 Allergies: Coded Allergies: Penicillins (Verified Allergy, Unknown, 07/06/13) morphine (Verified Adverse Reaction, Mild, "LOOPY", 10/08/18) Uncoded Allergies: PLASTIC TAPE (Allergy, Unknown, 04/01/07) Exam/Review of Systems Exam Vitals Vital Signs Date Temp Pulse Resp B/P (MAP) Pulse Ox O2 O2 Flow FiO2 Time Delivery Rate 11/08/18 76 21 146/66 100 Trach 19:00 (92) Collar 11/08/18 98.0 16:00 11/08/18 7.0 28 14:40 Intake and Output 11/07/18 11/07/18 11/08/18 1515:00 23:00 07:00 IntakeIntake Total 200 ml OutputOutput Total 750 ml BalanceBalance -550 ml Constitutional: non-verbal, frail Psych: confusion Head: normocephalic, atraumatic Eyes: nl conjunctiva, other (nystagmus) ENMT: nl external ears & nose, nl nasal mucosa & septum, mucosa pink and moist Neck: other (trach) Respiratory: diminished breath sounds Cardiovascular: regular rate and rhythm, nl pulses; No edema Gastrointestinal: soft, non-tender, other (GT) Genitourinary - Female: other (FC) Musculoskeletal: other (contractured upper extremities); No swelling Extremities: No edema Neurological: unresponsive Skin: No rash or lesions Results Result Diagram: 11/08/18 0445 11/08/18 0445 Results 24hrs Laboratory Tests Test 11/08/18 04:45 11/08/18 08:21 11/08/18 12:20 11/08/18 16:58 White Blood Count 6.3 Red Blood Count 3.72 L Hemoglobin 9.5 L Hematocrit 31.4 L Mean Corpuscular Volume 84.4 Mean Corpuscular 25.5 L Hemoglobin Mean Corpuscular 30.3 L Hemoglobin Concent Red Cell Distribution 17.4 H Width Platelet Count 237 # Mean Platelet Volume 11.6 H Immature Granulocytes % 0.300 Neutrophils % 68.7 Lymphocytes % 19.1 Monocytes % 6.5 Eosinophils % 4.8 Basophils % 0.6 Nucleated Red Blood 0.0 Cells % Immature Granulocytes # 0.020 Neutrophils # 4.3 Lymphocytes # 1.2 Monocytes # 0.4 Eosinophils # 0.3 Basophils # 0.0 Nucleated Red Blood 0.0 Cells # Sodium Level 140 Potassium Level 4.6 Chloride Level 103 Carbon Dioxide Level 28 Anion Gap 9 Blood Urea Nitrogen 26 H Creatinine 0.34 L Est Glomerular Filtrat Rate mL/min Glucose Level 149 Lactic Acid Level 1.2 Calcium Level 9.2 Phosphorus Level 3.6 Magnesium Level 2.1 Total Bilirubin 0.2 Direct Bilirubin 0.00 Indirect Bilirubin 0.2 Aspartate Amino 14 L Transf (AST/SGOT) Alanine 9 L Aminotransferase (ALT/SG PT) Alkaline Phosphatase 167 H Total Protein 6.7 Albumin 3.2 L Globulin 3.50 H Albumin/Globulin Ratio 0.91 Bedside Glucose 101 115 171 Test 11/08/18 18:40 Lactic Acid Level 0.8 Medications Medication Current Medications Sodium Chloride 1,000 ml @ 100 mls/hr Q10H IV Last administered on 11/08/18 14:43; Admin Dose 100 MLS/HR; Start 11/08/18 at 05:30 Acetaminophen (Tylenol Liquid) 650 mg Q6H PRN GTB PAIN AND/OR INFLAMMATION; Start 11/08/18 at 22:00 Albuterol (Proventil 0.083% (Neb)) 2.5 mg Q6H RESP THERAPY HHN Last administered on 11/08/18 14:28; Admin Dose 2.5 MG; Start 11/08/18 at 08:00 Ascorbic Acid (Vitamin C) 500 mg BID GTB Last administered on 11/08/18 08:22; Admin Dose 500 MG; Start 11/08/18 at 09:00 Aspirin (Aspirin) 81 mg BID GTB Last administered on 11/08/18 08:22; Admin Dose 81 MG; Start 11/08/18 at 09:00 Baclofen (Lioresal) 20 mg DAILY GTB Last administered on 11/08/18 08:22; Admin Dose 20 MG; Start 11/08/18 at 09:00 Cholecalciferol (Vitamin D) 2,000 unit DAILY GTB ; Start 11/08/18 at 09:00 Clonazepam (Klonopin) 0.5 mg BID GTB Last administered on 11/08/18 08:21; Admin Dose 0.5 MG; Start 11/08/18 at 09:00 Cyanocobalamin (Vitamin B12) 500 mcg DAILY GTB Last administered on 11/08/18 08:22; Admin Dose 500 MCG; Start 11/08/18 at 09:00 Acetaminophen/ Hydrocodone Bitart ([place] (5/325)) 1 tab Q4H PRN GTB MODERATE PAIN LEVEL 4-6; Start 11/08/18 at 04:30 Miscellaneous Information 1 ea NOTE XX ; Start 11/08/18 at 05:00 Ipratropium [place] (Atrovent 0.02% (Neb)) 0.5 mg Q6HWA RESP THERAPY HHN Last administered on 11/08/18 14:28; Admin Dose 0.5 MG; Start 11/08/18 at 08:00 Lactobacillus Acidophilus/ Rhamnosus (Culturelle) 1 cap BID GTB Last administered on 11/08/18 08:22; Admin Dose 1 CAP; Start 11/08/18 at 09:00 Lansoprazole (Prevacid) 30 mg BID@,18 GTB Last administered on 11/08/18 17:33; Admin Dose 30 MG; Start 11/08/18 at 06:00 Levetiracetam (Keppra Liquid) 500 mg BID GTB Last administered on 11/08/18 08:22; Admin Dose 500 MG; Start 11/08/18 at 09:00 Lisinopril (Zestril) 5 mg DAILY GTB ; Start 11/08/18 at 09:00 Metoprolol Tartrate (Lopressor) 25 mg BID GTB ; Start 11/08/18 at 09:00 Multivitamins (Multivitamin) 30 ml DAILY GTB Last administered on 11/08/18 08:22; Admin Dose 30 ML; Start 11/08/18 at 09:00 Ondansetron HCl (Zofran Inj) 4 mg Q6H PRN IV NAUSEA AND/OR VOMITING; Start 11/08/18 at 05:30 Polyethylene Glycol (Miralax) 17 gm BID GTB ; Start 11/08/18 at 09:00 Sertraline HCl (Zoloft) 50 mg DAILY GTB Last administered on 11/08/18 08:22; Admin Dose 50 MG; Start 11/08/18 at 09:00 Sodium Hypochlorite (Dakins Diluted ()) 1 applic BID TP Last administered on 11/08/18 08:23; Admin Dose 1 APPLIC; Start 11/08/18 at 09:00 Zinc Sulfate (Zinc Sulfate) 220 mg DAILY GTB Last administered on 11/08/18 08:22; Admin Dose 220 MG; Start 11/08/18 at 09:00 Zolpidem Tartrate (Ambien) 5 mg HS PRN PO INSOMNIA; Start 11/08/18 at 05:30 Miscellaneous Information (Pending [facility] Order For Wound Care) This patient donato... PRN PRN XX WOUND CARE; Start 11/08/18 at 05:30 Digoxin (Digoxin) 250 mcg ONCE ONCE IV ; Start 11/08/18 at 23:15; Stop 11/08/18 at 23:16 Metoprolol Tartrate (Lopressor) 5 mg Q4H IV ; Start 11/08/18 at 09:00 Insulin Aspart (Novolog Insulin Pen) NOVOLOG *MILD* ALGORI... Q4 SC Last administered on 11/08/18at 17:40; Admin Dose 1 UNIT; Start 11/08/18 at 09:00 Miscellaneous Information 1 ea NOTE XX ; Start 11/08/18 at 08:00 Glucose (Glutose) 15 gm Q15M PRN PO DECREASED GLUCOSE; Start 11/08/18 at 08:00 Glucose (Glutose) 22.5 gm Q15M PRN PO DECREASED GLUCOSE; Start 11/08/18 at 08:00 Dextrose (D50w Syringe) 25 ml Q15M PRN IV DECREASED GLUCOSE; Start 11/08/18 at 08:00 Dextrose (D50w Syringe) 50 ml Q15M PRN IV DECREASED GLUCOSE; Start 11/08/18 at 08:00 Glucagon (Glucagen) 1 mg Q15M PRN IM DECREASED GLUCOSE; Start 11/08/18 at 08:00 Glucose (Glutose) 15 gm Q15M PRN BUCCAL DECREASED GLUCOSE; Start 11/08/18 at 08:00 Amiodarone HCl 900 mg/Dextrose 500 ml @ 0 mls/hr Q0M IV Last administered on 11/08/18at 14:43; Admin Dose 33.3 MLS/HR; Start 11/08/18 at 12:30 Albumin Human 100 ml @ 100 mls/hr Q8H IV Last administered on 11/08/18at 15:19; Admin Dose 100 MLS/HR; Start 11/08/18 at 15:30; Stop 11/09/18 at 08:29 Norepinephrine 250 ml @ 1.875 mls/ hr TITRATE IV Last administered on 11/08/18at 15:44; Admin Dose 7.5 MLS/HR; Start 11/08/18 at 15:30 IV Flush (NS 10 ml) 10 ml PRN PRN IV IV PROTOCOL; Start 11/08/18 at 18:00 IRWIN SKELTON M.D. Nov 08, 2018 19:31
--- NOTE | 2018-11-08 19:33 | CONS ---
Assessment/Plan Assessment/Plan Hospital Course (Demo Recall) # infection of wound, OM of R hip - colonization of the wound of R hip by pseudomonas (wound culture on 10/31/2018) - s/p repeat debridement at [facility] on 11/03/[address]. [address] Pierson, the wound appeared clean during the I&D (my conversation with him on 11/06/2018) - H/o stage sacral decubitus ulcer extending to bilateral buttocks. She reportedly had total hip dislocation and exposed femur head. CT pelvis showed e/o OM. Pt complete IV Vancomycin (09/17/2018-10/29/2018) for sacral OM associated with E. faecalis - H/o sharp excisional debridement down to and including bone of the sacrum on 08/22/2018 and 09/19/2018 - H/o excision of R hip ulcer, Girdlestone resection arthroplasty and flap reconstruction 09/23/2018. The surgical pathology showed osteomyelitis of R hip bone, soft tissue cellulitis, and bony margin of excision was free of the disease - h/o removal of devitalized/necrotic tissue by Dr. Pierson on 10/07/2018 # sepsis, endovascular infection, respiratory - h/o sepsis due to bacteremia and pneumonia - h/o bacteremia: blood cultures grew enterococcus faecalis on 09/17/2018 secondary to R hip wound infection as its wound culture on 09/16/2018 grew E. faecalis as well - H/o recurrent acute on chronic hypoxemic respiratory failure secondary to secretion retention, mucous plugging, major left lung atelectasis, severe shunting - h/o probable aspiration pneumonia. - h/o pneumonia due to pseudomonas on 09/30/2018. s/p Levaquin (10/03/18- 10/07/2018), Meropenem (restart 09/30/2018-10/03/18, 10/12/18 - 10/19/2018) and empiric Amikacin (09/30/18-10/03/18) - H/o intubation on 09/30/2018 - H/o tracheostomy on 10/04/2018 - h/o pseudomonas in urine culture on 09/17/2018 with mild pyuria; treated with Cefepime (09/20/2018-09/25/2018) # renal/ - H/o moderate L hydronephrosis per renal US - funguria, recurrent, per urine cx on 09/30/2018 and 10/12/2018. Ramires was last replaced 10/01/18 # heme/neuro - H/o acute on chronic anemia requiring PRBC - Metabolic encephalopathy - Supranuclear palsy # endo, cardiac - Diabetes Mellitus - A fib with RVR - Chronic diastolic HF (EF 40-45% with grade 1 DD per 2D Echo 10/24/2018) - H/o hypertension # allergy - Penicillin allergy (throat swelling)but Pt tolerates cefepime and ceftazidime - Resulted: [id number] <31 recommendations: - ordered/pending: blood cultures x2, urine culture, resp culture - pseudomonas was a colonizer of the wound, and therefore ceftazidime may be discontinued - wound care - management d/w Pt's RN Katalina the critical care time I took to care for this Pt today was from 1830 to 1900 Consultation Date/Type/Reason Admit Date/Time Nov 08, 2018 at 03:55 Type of Consult ID Reason for Consultation sepsis Date/Time of Note DATE: 11/08/18 TIME: 19:32 Hx of Present Illness This is a 73 yo female with DM, progressive supranuclear palsy, G tube dependent Pt who was originally admitted at [facility] in 2019 due to fever and acute hypoxic resp failure. Pt had sacral decubitus ulcer extending to bilateral buttocks. She reportedly had total hip dislocation and exposed femoral head. CT pelvis showed e/o OM. She underwent sharp excisional debridement down to and including bone of the sacrum on 08/22/2018 and 09/19/2018; excision of R hip ulcer, Girdlestone resection arthroplasty and flap reconstruction 09/23/2018. The surgical pathology showed osteomyelitis of R hip bone, soft tissue cellulitis, and bony margin of excision was free of the disease. Her blood cultures grew enterococcus faecalis on 09/17/2018 secondary to R hip wound infection as its wound culture on 09/16/2018 grew E. faecalis as well. During her admission, Pt had recurrent acute on chronic hypoxemic respiratory failure secondary to secretion retention, mucous plugging, major left lung atelectasis, severe shunting and pneumonia due to pseudomonas on 09/30/2018. She failed Bipap, and was intubated on 09/30/2018. She eventually got tracheostomy placed on 10/04/2018. Finally, she had removal of devitalized/necrotic tissue by Dr. Pierson on 10/07/2018, and was transferred to [facility] on 10/08/2018. Pt completed vancomycin (09/17/2018-10/29/2018) for treatment of sacral OM associated with E. faecalis. on 10/31/2018 Pt was noted to have purulence in her wound. As a result, Pt was started on empiric IV vancomycin and cefepime, and was subsequently transferred back to [facility]. Repeat drainage of the wound was done by Dr. Pierson on . I discussed the status of her wound with Dr. Kenna brown 11/07/2018. According to him the wound appeared clean during the I&D. Pt was readmitted at [facility] on 11/04/2018. On 11/08/2018, Pt developed A fib with RVR and marginal BP. As a result Pt was transferred to ICU at [facility]. After transfer, her rhythm has been converted to sinus. As Pt was loaded on amiodarone, her BP started to decline. She did not have fever. Pt is non-verbal and cannot give me her subjective history. MANUEL Uriarte requested ID consultation on this Pt. Subjective hx not possible: pt non-verbal, pt critical, pt critical status Past Medical History Medical History: congestive heart failure (Diastolic), diabetes, hypertension Home Meds Reported Medications [Tramadol] No Conflict Check 06/26/13 [Oxybutynin] No Conflict Check 02/18/13 [Furosemide] No Conflict Check 02/18/13 [Atorvastatin] No Conflict Check 02/18/13 [Lorazepam] No Conflict Check 02/18/13 Estrogens Conjugated* (Premarin*) 0.45 Mg Tablet, 1.5 MG PO DAILY 02/18/13 Medications Current Medications Sodium Chloride 1,000 ml @ 100 mls/hr Q10H IV Last administered on 11/08/18at 14:43; Admin Dose 100 MLS/HR; Start 11/08/18 at 05:30 Acetaminophen (Tylenol Liquid) 650 mg Q6H PRN GTB PAIN AND/OR INFLAMMATION; Start 11/08/18 at 22:00 Albuterol (Proventil 0.083% (Neb)) 2.5 mg Q6H RESP THERAPY HHN Last administered on 11/08/18 14:28; Admin Dose 2.5 MG; Start 11/08/18 at 08:00 Ascorbic Acid (Vitamin C) 500 mg BID GTB Last administered on 11/08/18 08:22; Admin Dose 500 MG; Start 11/08/18 at 09:00 Aspirin (Aspirin) 81 mg BID GTB Last administered on 11/08/18 08:22; Admin Dose 81 MG; Start 11/08/18 at 09:00 Baclofen (Lioresal) 20 mg DAILY GTB Last administered on 11/08/18 08:22; Admin Dose 20 MG; Start 11/08/18 at 09:00 Cholecalciferol (Vitamin D) 2,000 unit DAILY GTB ; Start 11/08/18 at 09:00 Clonazepam (Klonopin) 0.5 mg BID GTB Last administered on 11/08/18 08:21; Admin Dose 0.5 MG; Start 11/08/18 at 09:00 Cyanocobalamin (Vitamin B12) 500 mcg DAILY GTB Last administered on 11/08/18 08:22; Admin Dose 500 MCG; Start 11/08/18 at 09:00 Acetaminophen/ Hydrocodone Bitart ([place] (5/325)) 1 tab Q4H PRN GTB MODERATE PAIN LEVEL 4-6; Start 11/08/18 at 04:30 Miscellaneous Information 1 ea NOTE XX ; Start 11/08/18 at 05:00 Ipratropium [place] (Atrovent 0.02% (Neb)) 0.5 mg Q6HWA RESP THERAPY HHN Last administered on 11/08/18 14:28; Admin Dose 0.5 MG; Start 11/08/18 at 08:00 Lactobacillus Acidophilus/ Rhamnosus (Culturelle) 1 cap BID GTB Last administered on 11/08/18 08:22; Admin Dose 1 CAP; Start 11/08/18 at 09:00 Lansoprazole (Prevacid) 30 mg BID@,18 GTB Last administered on 11/08/18 17:33; Admin Dose 30 MG; Start 11/08/18 at 06:00 Levetiracetam (Keppra Liquid) 500 mg BID GTB Last administered on 11/08/18 08:22; Admin Dose 500 MG; Start 11/08/18 at 09:00 Lisinopril (Zestril) 5 mg DAILY GTB ; Start 11/08/18 at 09:00 Metoprolol Tartrate (Lopressor) 25 mg BID GTB ; Start 11/08/18 at 09:00 Multivitamins (Multivitamin) 30 ml DAILY GTB Last administered on 11/08/18at 08:22; Admin Dose 30 ML; Start 11/08/18 at 09:00 Ondansetron HCl (Zofran Inj) 4 mg Q6H PRN IV NAUSEA AND/OR VOMITING; Start 11/08/18 at 05:30 Polyethylene Glycol (Miralax) 17 gm BID GTB ; Start 11/08/18 at 09:00 Sertraline HCl (Zoloft) 50 mg DAILY GTB Last administered on 11/08/18at 08:22; Admin Dose 50 MG; Start 11/08/18 at 09:00 Sodium Hypochlorite (Dakins Diluted ()) 1 applic BID TP Last administered on 11/08/18at 08:23; Admin Dose 1 APPLIC; Start 11/08/18 at 09:00 Zinc Sulfate (Zinc Sulfate) 220 mg DAILY GTB Last administered on 11/08/18at 0 8:22; Admin Dose 220 MG; Start 11/08/18 at 09:00 Zolpidem Tartrate (Ambien) 5 mg HS PRN PO INSOMNIA; Start 11/08/18 at 05:30 Miscellaneous Information (Pending [facility] Order For Wound Care) This patient donato... PRN PRN XX WOUND CARE; Start 11/08/18 at 05:30 Digoxin (Digoxin) 250 mcg ONCE ONCE IV ; Start 11/08/18 at 23:15; Stop 11/08/18 at 23:16 Metoprolol Tartrate (Lopressor) 5 mg Q4H IV ; Start 11/08/18 at 09:00 Insulin Aspart (Novolog Insulin Pen) NOVOLOG *MILD* ALGORI... Q4 SC Last administered on 11/08/18at 17:40; Admin Dose 1 UNIT; Start 11/08/18 at 09:00 Miscellaneous Information 1 ea NOTE XX ; Start 11/08/18 at 08:00 Glucose (Glutose) 15 gm Q15M PRN PO DECREASED GLUCOSE; Start 11/08/18 at 08:00 Glucose (Glutose) 22.5 gm Q15M PRN PO DECREASED GLUCOSE; Start 11/08/18 at 08:00 Dextrose (D50w Syringe) 25 ml Q15M PRN IV DECREASED GLUCOSE; Start 11/08/18 at 08:00 Dextrose (D50w Syringe) 50 ml Q15M PRN IV DECREASED GLUCOSE; Start 11/08/18 at 08:00 Glucagon (Glucagen) 1 mg Q15M PRN IM DECREASED GLUCOSE; Start 11/08/18 at 08:00 Glucose (Glutose) 15 gm Q15M PRN BUCCAL DECREASED GLUCOSE; Start 11/08/18 at 08:00 Amiodarone HCl 900 mg/Dextrose 500 ml @ 0 mls/hr Q0M IV Last administered on 11/08/18at 14:43; Admin Dose 33.3 MLS/HR; Start 11/08/18 at 12:30 Albumin Human 100 ml @ 100 mls/hr Q8H IV Last administered on 11/08/18at 15:19; Admin Dose 100 MLS/HR; Start 11/08/18 at 15:30; Stop 11/09/18 at 08:29 Norepinephrine 250 ml @ 1.875 mls/ hr TITRATE IV Last administered on 11/08/18at 15:44; Admin Dose 7.5 MLS/HR; Start 11/08/18 at 15:30 IV Flush (NS 10 ml) 10 ml PRN PRN IV IV PROTOCOL; Start 11/08/18 at 18:00 Allergies: Coded Allergies: Penicillins (Verified Allergy, Unknown, 07/06/13) morphine (Verified Adverse Reaction, Mild, "LOOPY", 10/08/18) Uncoded Allergies: PLASTIC TAPE (Allergy, Unknown, 04/01/07) Exam/Review of Systems Exam Vitals Vital Signs Date Temp Pulse Resp B/P (MAP) Pulse Ox O2 O2 Flow FiO2 Time Delivery Rate 11/08/18 76 21 146/66 100 Trach 19:00 (92) Collar 11/08/18 98.0 16:00 11/08/18 7.0 28 14:40 Intake and Output 11/07/18 11/07/18 11/08/18 1515:00 23:00 07:00 IntakeIntake Total 200 ml OutputOutput Total 750 ml BalanceBalance -550 ml Constitutional: frail Psych: confusion Head: normocephalic, atraumatic Eyes: nl conjunctiva, nl lids, nl sclera, other (+nystagmus) ENMT: nl external ears & nose, nl nasal mucosa & septum Neck: other (trach) Respiratory: crackles/rales Cardiovascular: regular rate and rhythm, nl pulses; No edema Gastrointestinal: soft, non-tender, other (GT) Musculoskeletal: other (contractured particularly UEs) Extremities: normal pulses; No edema Neurological: unresponsive Skin: nl turgor, rash or lesions (large R hip wound) Results Result Diagram: 11/08/18 0445 11/08/18 0445 Results 24hrs Laboratory Tests Test 11/08/18 04:45 11/08/18 08:21 11/08/18 12:20 11/08/18 16:58 White Blood Count 6.3 Red Blood Count 3.72 L Hemoglobin 9.5 L Hematocrit 31.4 L Mean Corpuscular 84.4 Volume Mean Corpuscular 25.5 L Hemoglobin Mean Corpuscular 30.3 L Hemoglobin Concent Red Cell 17.4 H Distribution Width Platelet Count 237 # Mean Platelet 11.6 H Volume Immature 0.300 Granulocytes % Neutrophils % 68.7 Lymphocytes % 19.1 Monocytes % 6.5 Eosinophils % 4.8 Basophils % 0.6 Nucleated Red 0.0 Blood Cells % Immature 0.020 Granulocytes # Neutrophils # 4.3 Lymphocytes # 1.2 Monocytes # 0.4 Eosinophils # 0.3 Basophils # 0.0 Nucleated Red 0.0 Blood Cells # Sodium Level 140 Potassium Level 4.6 Chloride Level 103 Carbon Dioxide 28 Level Anion Gap 9 Blood Urea 26 H Nitrogen Creatinine 0.34 L Est Glomerular Filtrat Rate mL/min Glucose Level 149 Lactic Acid Level 1.2 Calcium Level 9.2 Phosphorus Level 3.6 Magnesium Level 2.1 Total Bilirubin 0.2 Direct Bilirubin 0.00 Indirect Bilirubin 0.2 Aspartate Amino 14 L Transf (AST/SGOT) Alanine 9 L Aminotransferase ( ALT/SGPT) Alkaline 167 H Phosphatase Total Protein 6.7 Albumin 3.2 L Globulin 3.50 H Albumin/Globulin 0.91 Ratio Bedside Glucose 101 115 171 Test 11/08/18 18:32 11/08/18 18:40 11/08/18 19:00 Troponin I 0.018 Lactic Acid Level 0.8 Urine Color YELLOW Urine Clarity SLIGHTLY CLOUDY A Urine pH 5.0 Urine Specific 1.023 [place] Urine Ketones TRACE A Urine Nitrite NEGATIVE Urine Bilirubin NEGATIVE Urine Urobilinogen NEGATIVE Urine Leukocyte 2+ H Esterase Urine Microscopic 68 H RBC Urine Microscopic 27 H WBC Urine Bacteria FEW A Urine Mucus FEW A Urine Yeast FEW A (Budding) Urine Hemoglobin 1+ H Urine Glucose NEGATIVE Urine Total 1+ H Protein Medications Medication Current Medications Sodium Chloride 1,000 ml @ 100 mls/hr Q10H IV Last administered on 11/08/18 14:43; Admin Dose 100 MLS/HR; Start 11/08/18 at 05:30 Acetaminophen (Tylenol Liquid) 650 mg Q6H PRN GTB PAIN AND/OR INFLAMMATION; Start 11/08/18 at 22:00 Albuterol (Proventil 0.083% (Neb)) 2.5 mg Q6H RESP THERAPY HHN Last administered on 11/08/18 14:28; Admin Dose 2.5 MG; Start 11/08/18 at 08:00 Ascorbic Acid (Vitamin C) 500 mg BID GTB Last administered on 11/08/18 08:22; Admin Dose 500 MG; Start 11/08/18 at 09:00 Aspirin (Aspirin) 81 mg BID GTB Last administered on 11/08/18 08:22; Admin Dose 81 MG; Start 11/08/18 at 09:00 Baclofen (Lioresal) 20 mg DAILY GTB Last administered on 11/08/18 08:22; Admin Dose 20 MG; Start 11/08/18 at 09:00 Cholecalciferol (Vitamin D) 2,000 unit DAILY GTB ; Start 11/08/18 at 09:00 Clonazepam (Klonopin) 0.5 mg BID GTB Last administered on 11/08/18 08:21; Admin Dose 0.5 MG; Start 11/08/18 at 09:00 Cyanocobalamin (Vitamin B12) 500 mcg DAILY GTB Last administered on 11/08/18 08:22; Admin Dose 500 MCG; Start 11/08/18 at 09:00 Acetaminophen/ Hydrocodone Bitart ([place] (5/325)) 1 tab Q4H PRN GTB MODERATE PAIN LEVEL 4-6; Start 11/08/18 at 04:30 Miscellaneous Information 1 ea NOTE XX ; Start 11/08/18 at 05:00 Ipratropium [place] (Atrovent 0.02% (Neb)) 0.5 mg Q6HWA RESP THERAPY HHN Last administered on 11/08/18 14:28; Admin Dose 0.5 MG; Start 11/08/18 at 08:00 Lactobacillus Acidophilus/ Rhamnosus (Culturelle) 1 cap BID GTB Last administered on 11/08/18 08:22; Admin Dose 1 CAP; Start 11/08/18 at 09:00 Lansoprazole (Prevacid) 30 mg BID@,18 GTB Last administered on 11/08/18 17:33; Admin Dose 30 MG; Start 11/08/18 at 06:00 Levetiracetam (Keppra Liquid) 500 mg BID GTB Last administered on 11/08/18 08:22; Admin Dose 500 MG; Start 11/08/18 at 09:00 Lisinopril (Zestril) 5 mg DAILY GTB ; Start 11/08/18 at 09:00 Metoprolol Tartrate (Lopressor) 25 mg BID GTB ; Start 11/08/18 at 09:00 Multivitamins (Multivitamin) 30 ml DAILY GTB Last administered on 11/08/18 08:22; Admin Dose 30 ML; Start 11/08/18 at 09:00 Ondansetron HCl (Zofran Inj) 4 mg Q6H PRN IV NAUSEA AND/OR VOMITING; Start 11/08/18 at 05:30 Polyethylene Glycol (Miralax) 17 gm BID GTB ; Start 11/08/18 at 09:00 Sertraline HCl (Zoloft) 50 mg DAILY GTB Last administered on 11/08/18 08:22; Admin Dose 50 MG; Start 11/08/18 at 09:00 Sodium Hypochlorite (Dakins Diluted (40)) 1 applic BID TP Last administered on 11/08/18 08:23; Admin Dose 1 APPLIC; Start 11/08/18 at 09:00 Zinc Sulfate (Zinc Sulfate) 220 mg DAILY GTB Last administered on 11/08/18 08:22; Admin Dose 220 MG; Start 11/08/18 at 09:00 Zolpidem Tartrate (Ambien) 5 mg HS PRN PO INSOMNIA; Start 11/08/18 at 05:30 Miscellaneous Information (Pending [facility] For [facility] Care) This patient donato... PRN PRN XX WOUND CARE; Start 11/08/18 at 05:30 Digoxin (Digoxin) 250 mcg ONCE ONCE IV ; Start 11/08/18 at 23:15; Stop 11/08/18 at 23:16 Metoprolol Tartrate (Lopressor) 5 mg Q4H IV ; Start 11/08/18 at 09:00 Insulin Aspart (Novolog Insulin Pen) NOVOLOG *MILD* ALGORI... Q4 SC Last administered on 11/08/18at 17:40; Admin Dose 1 UNIT; Start 11/08/18 at 09:00 Miscellaneous Information 1 ea NOTE XX ; Start 11/08/18 at 08:00 Glucose (Glutose) 15 gm Q15M PRN PO DECREASED GLUCOSE; Start 11/08/18 at 08:00 Glucose (Glutose) 22.5 gm Q15M PRN PO DECREASED GLUCOSE; Start 11/08/18 at 08:00 Dextrose (D50w Syringe) 25 ml Q15M PRN IV DECREASED GLUCOSE; Start 11/08/18 at 08:00 Dextrose (D50w Syringe) 50 ml Q15M PRN IV DECREASED GLUCOSE; Start 11/08/18 at 0 8:00 Glucagon (Glucagen) 1 mg Q15M PRN IM DECREASED GLUCOSE; Start 11/08/18 at 08:00 Glucose (Glutose) 15 gm Q15M PRN BUCCAL DECREASED GLUCOSE; Start 11/08/18 at 08:00 Amiodarone HCl 900 mg/Dextrose 500 ml @ 0 mls/hr Q0M IV Last administered on 11/08/18at 14:43; Admin Dose 33.3 MLS/HR; Start 11/08/18 at 12:30 Albumin Human 100 ml @ 100 mls/hr Q8H IV Last administered on 11/08/18at 15:19; Admin Dose 100 MLS/HR; Start 11/08/18 at 15:30; Stop 11/09/18 at 08:29 Norepinephrine 250 ml @ 1.875 mls/ hr TITRATE IV Last administered on 11/08/18at 15:44; Admin Dose 7.5 MLS/HR; Start 11/08/18 at 15:30 IV Flush (NS 10 ml) 10 ml PRN PRN IV IV PROTOCOL; Start 11/08/18 at 18:00 IRWIN SKELTON M.D. Nov 08, 2018 19:33
[2018-11-08] MEDS ORDERED: ACETAMINOPHEN 650MG/20.3ML CUP GTB PRN (22:00)
[2018-11-09] VITALS (41 sets, daily range): BP systolic 94–126; BP diastolic 40–72; PULSE 63–90; RESP 14–24
[2018-11-09] MEDS: METOPROLOL 5 MG INJ IV SCH ×6 (00:46→21:00)
[2018-11-09] MEDS: INSULIN ASPART [NOVOLOG] 3 ML PEN SC SCH ×6 (00:48→21:00)
[2018-11-09] MEDS: SOD CHLORIDE 0.9% 1,000 ML IV SCH ×3 (01:30→13:00)
[2018-11-09] MEDS: ALBUTEROL 0.083% (NEB) 2.5 MG/3 ML AMP HHN SCH ×4 (02:15→19:37)
[2018-11-09] MEDS: LANSOPRAZOLE 30 MG CAP GTB SCH ×2 (05:59→17:44)
[2018-11-09] MEDS: ALBUMIN HUMAN 25% 100 ML IV SCH (06:42)
[2018-11-09] MEDS: POLYETHYLENE GLYCOL 17 GM PACKET GTB SCH ×2 (08:36→21:00)
[2018-11-09] MEDS: METOPROLOL 25 MG TAB GTB SCH ×2 (08:36→21:04)
[2018-11-09] MEDS: clonAZEPAM 0.5 MG TAB GTB SCH ×2 (09:00→21:04)
[2018-11-09] MEDS: LACTOBACILLUS RHAMNOSUS CAP GTB SCH ×2 (09:02→21:04)
[2018-11-09] MEDS: MULTIVITAMINS 30 ML CUP GTB SCH (09:02)
[2018-11-09] MEDS: LEVETIRACETAM (100 MG/ML) 5ML CUP GTB SCH ×2 (09:02→21:04)
[2018-11-09] MEDS: CYANOCOBALAMIN 500 MCG TAB GTB SCH (09:03)
[2018-11-09] MEDS: BACLOFEN 10 MG TAB GTB SCH (09:03)
[2018-11-09] MEDS: ZINC SULFATE 220 MG CAP GTB SCH (09:03)
[2018-11-09] MEDS: SERTRALINE 50 MG TAB GTB SCH (09:03)
[2018-11-09] MEDS: ASPIRIN 81 MG TAB GTB SCH ×2 (09:03→21:03)
[2018-11-09] MEDS: ASCORBIC ACID 500 MG TAB GTB SCH ×2 (09:03→21:03)
[2018-11-09] MEDS: LISINOPRIL 5 MG TAB GTB SCH (09:03)
[2018-11-09] MEDS: CHOLECALCIFEROL 2,000 UNIT CAP GTB SCH (09:04)
[2018-11-09] MEDS: DAKINS 0.0125%(1/40) 473 ML SOLUTION TP SCH ×3 (09:05→21:06)
[2018-11-09] MEDS: IPRATROPIUM (NEB) 0.5 MG/2.5 ML AMP HHN SCH ×3 (09:18→19:37)
--- NOTE | 2018-11-09 10:34 | CONS ---
Consult Date/Type/Reason Admit Date/Time Nov 08, 2018 at 03:55 Initial Consult Date 11/08/18 Type of Consultation: Pulm/CCM Requesting Provider: NADEEN CHO Date/Time of Note DATE: 11/09/18 TIME: 10:31 Subjective No events. Off levophed gtt. On t-piece. Objective Vitals Vital Signs Date Temp Pulse Resp B/P (MAP) Pulse Ox O2 O2 Flow FiO2 Time Delivery Rate 11/09/18 67 22 125/56 100 Trach 09:00 (79) Collar 11/09/18 98.4 08:00 11/09/18 5.0 28 02:15 Intake and Output 11/08/18 11/08/18 11/09/18 1515:00 23:00 07:00 IntakeIntake Total 890 ml 1422.50 ml 1178.75 ml OutputOutput Total 325 ml 565 ml 360 ml BalanceBalance 565 ml 857.50 ml 818.75 ml Exam HEENT: Neck supple; no JVD; no LAD; + trach CVS: Irreg irreg, S1 and S2 CHEST: Coarse BS b/l ABD: Soft, NT, + BS EXT: No c/c; + decub wounds stage III/IV Results/Medications Result Diagram: 11/09/18 0500 11/09/18 0500 Results 24 hrs Laboratory Tests Test 11/08/18 12:20 11/08/18 16:58 11/08/18 18:32 11/08/18 18:40 Bedside Glucose 115 171 Troponin I 0.018 Lactic Acid Level 0.8 Test 11/08/18 19:00 11/08/18 20:45 11/09/18 00:23 11/09/18 00:45 Urine Color YELLOW Urine Clarity SLIGHTLY CLOUDY A Urine pH 5.0 Urine Specific 1.023 [place] Urine Ketones TRACE A Urine Nitrite NEGATIVE Urine Bilirubin NEGATIVE Urine Urobilinogen NEGATIVE Urine Leukocyte 2+ H Esterase Urine Microscopic 68 H RBC Urine Microscopic 27 H WBC Urine Bacteria FEW A Urine Mucus FEW A Urine Yeast FEW A (Budding) Urine Hemoglobin 1+ H Urine Glucose NEGATIVE Urine Total 1+ H Protein Bedside Glucose 169 150 Troponin I 0.026 Test 11/09/18 05:00 11/09/18 05:58 11/09/18 09:08 White Blood Count 5.8 Red Blood Count 2.81 #L Hemoglobin 7.2 #L Hematocrit 23.8 #L Mean Corpuscular 84.7 Volume Mean Corpuscular 25.6 L Hemoglobin Mean Corpuscular 30.3 L Hemoglobin Concent Red Cell 17.6 H Distribution Width Platelet Count 192 Mean Platelet 11.2 H Volume Immature 0.300 Granulocytes % Neutrophils % 65.9 Lymphocytes % 22.3 Monocytes % 7.7 Eosinophils % 3.1 Basophils % 0.7 Nucleated Red 0.0 Blood Cells % Immature 0.020 Granulocytes # Neutrophils # 3.8 Lymphocytes # 1.3 Monocytes # 0.5 Eosinophils # 0.2 Basophils # 0.0 Nucleated Red 0.0 Blood Cells # Sodium Level 143 Potassium Level 4.1 Chloride Level 109 Carbon Dioxide 26 Level Anion Gap 8 Blood Urea 18 Nitrogen Creatinine 0.30 L Est Glomerular Filtrat Rate mL/min Glucose Level 119 Calcium Level 8.7 Total Bilirubin 0.1 L Direct Bilirubin 0.00 Indirect Bilirubin 0.1 Aspartate Amino 9 L Transf (AST/SGOT) Alanine 15 Aminotransferase ( ALT/SGPT) Alkaline 110 Phosphatase Troponin I 0.029 Total Protein 5.3 #L Albumin 2.8 L Globulin 2.50 Albumin/Globulin 1.12 Ratio Bedside Glucose 132 105 Home Meds Reported Medications [Tramadol] No Conflict Check 06/26/13 [Oxybutynin] No Conflict Check 02/18/13 [Furosemide] No Conflict Check 02/18/13 [Atorvastatin] No Conflict Check 02/18/13 [Lorazepam] No Conflict Check 02/18/13 Estrogens Conjugated* (Premarin*) 0.45 Mg Tablet, 1.5 MG PO DAILY 02/18/13 Medications Current Medications Sodium Chloride 1,000 ml @ 100 mls/hr Q10H IV Last administered on 11/09/18at 02:35; Admin Dose 100 MLS/HR; Start 11/08/18 at 05:30 Acetaminophen (Tylenol Liquid) 650 mg Q6H PRN GTB PAIN AND/OR INFLAMMATION; Start 11/08/18 at 22:00 Albuterol (Proventil 0.083% (Neb)) 2.5 mg Q6H RESP THERAPY HHN Last administered on 11/09/18at 09:19; Admin Dose 2.5 MG; Start 11/08/18 at 08:00 Ascorbic Acid (Vitamin C) 500 mg BID GTB Last administered on 11/09/18 09:03; Admin Dose 500 MG; Start 11/08/18 at 09:00 Aspirin (Aspirin) 81 mg BID GTB Last administered on 11/09/18 09:03; Admin Dose 81 MG; Start 11/08/18 at 09:00 Baclofen (Lioresal) 20 mg DAILY GTB Last administered on 11/09/18 09:03; Admin Dose 20 MG; Start 11/08/18 at 09:00 Cholecalciferol (Vitamin D) 2,000 unit DAILY GTB Last administered on 11/09/18 09:04; Admin Dose 2,000 UNIT; Start 11/08/18 at 09:00 Clonazepam (Klonopin) 0.5 mg BID GTB Last administered on 11/08/18 20:35; Admin Dose 0.5 MG; Start 11/08/18 at 09:00 Cyanocobalamin (Vitamin B12) 500 mcg DAILY GTB Last administered on 11/09/18 09:03; Admin Dose 500 MCG; Start 11/08/18 at 09:00 Acetaminophen/ Hydrocodone Bitart ([place] (5/325)) 1 tab Q4H PRN GTB MODERATE PAIN LEVEL 4-6; Start 11/08/18 at 04:30 Miscellaneous Information 1 ea NOTE XX ; Start 11/08/18 at 05:00 Ipratropium [place] (Atrovent 0.02% (Neb)) 0.5 mg Q6HWA RESP THERAPY HHN Last administered on 11/09/18 09:18; Admin Dose 0.5 MG; Start 11/08/18 at 08:00 Lactobacillus Acidophilus/ Rhamnosus (Culturelle) 1 cap BID GTB Last administered on 11/09/18 09:02; Admin Dose 1 CAP; Start 11/08/18 at 09:00 Lansoprazole (Prevacid) 30 mg BID@18 GTB Last administered on 11/09/18 05:59; Admin Dose 30 MG; Start 11/08/18 at 06:00 Levetiracetam (Keppra Liquid) 500 mg BID GTB Last administered on 11/09/18 09:02; Admin Dose 500 MG; Start 11/08/18 at 09:00 Lisinopril (Zestril) 5 mg DAILY GTB Last administered on 11/09/18 09:03; Admin Dose 5 MG; Start 11/08/18 at 09:00 Metoprolol Tartrate (Lopressor) 25 mg BID GTB ; Start 11/08/18 at 09:00 Multivitamins (Multivitamin) 30 ml DAILY GTB Last administered on 11/09/18at 09:02; Admin Dose 30 ML; Start 11/08/18 at 09:00 Ondansetron HCl (Zofran Inj) 4 mg Q6H PRN IV NAUSEA AND/OR VOMITING; Start 11/08/18 at 05:30 Polyethylene Glycol (Miralax) 17 gm BID GTB ; Start 11/08/18 at 09:00 Sertraline HCl (Zoloft) 50 mg DAILY GTB Last administered on 11/09/18at 09:03; Admin Dose 50 MG; Start 11/08/18 at 09:00 Sodium Hypochlorite (Dakins Diluted (40)) 1 applic BID TP Last administered on 11/09/18at 09:05; Admin Dose 1 APPLIC; Start 11/08/18 at 09:00 Zinc Sulfate (Zinc Sulfate) 220 mg DAILY GTB Last administered on 11/09/18at 09:03; Admin Dose 220 MG; Start 11/08/18 at 09:00 Zolpidem Tartrate (Ambien) 5 mg HS PRN PO INSOMNIA; Start 11/08/18 at 05:30 Miscellaneous Information (Pending [facility] Order For Wound Care) This patient donato... PRN PRN XX WOUND CARE; Start 11/08/18 at 05:30 Metoprolol Tartrate (Lopressor) 5 mg Q4H IV ; Start 11/08/18 at 09:00 Insulin Aspart (Novolog Insulin Pen) NOVOLOG *MILD* ALGORI... Q4 SC Last administered on 11/09/18at 00:48; Admin Dose 1 UNIT; Start 11/08/18 at 09:00 Miscellaneous Information 1 ea NOTE XX ; Start 11/08/18 at 08:00 Glucose (Glutose) 15 gm Q15M PRN PO DECREASED GLUCOSE; Start 11/08/18 at 08:00 Glucose (Glutose) 22.5 gm Q15M PRN PO DECREASED GLUCOSE; Start 11/08/18 at 08:00 Dextrose (D50w Syringe) 25 ml Q15M PRN IV DECREASED GLUCOSE; Start 11/08/18 at 08:00 Dextrose (D50w Syringe) 50 ml Q15M PRN IV DECREASED GLUCOSE; Start 11/08/18 at 08:00 Glucagon (Glucagen) 1 mg Q15M PRN IM DECREASED GLUCOSE; Start 11/08/18 at 08:00 Glucose (Glutose) 15 gm Q15M PRN BUCCAL DECREASED GLUCOSE; Start 11/08/18 at 08:00 Amiodarone HCl 900 mg/Dextrose 500 ml @ 0 mls/hr Q0M IV Last administered on 11/08/18at 14:43; Admin Dose 33.3 MLS/HR; Start 11/08/18 at 12:30 Norepinephrine 250 ml @ 1.875 mls/ hr TITRATE IV Last administered on 11/08/18at 15:44; Admin Dose 7.5 MLS/HR; Start 11/08/18 at 15:30 IV Flush (NS 10 ml) 10 ml PRN PRN IV IV PROTOCOL; Start 11/08/18 at 18:00 Assessment/Plan Assessment/Plan (Daily) IMP: 1. Severe Sepsis--2/2 wound infection 2. Afib with RVR 3. 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 Chronic encephalopathy 5. Seizure D/O 6. Dementia 7. Decubitus ulcers RECS: 1. Abx per ID 2. BD's/CPT/suctioning 3. Monitor on t-piece 4. Follow cultures 5. Wound care 6. Rate control 7. TF/Free H20 35 min cc time FAWAD URIBE MD Nov 09, 2018 10:34
--- NOTE | 2018-11-09 11:35 | PN ---
Date/Time of Note Date/Time of Note DATE: 11/09/18 TIME: 11:35 Assessment/Plan VTE Prophylaxis Risk score (from Ns)>0 risk: 11 SCD applied (from Ns): Yes Pharmacological prophylaxis: LMWH Lines/Catheters IV Catheter Type (from Nrs): PICC Line Central line still needed: Yes Urinary Cath still in place: Yes Reason Cath still needed: skin wounds contaminated by urine Assessment/Plan Hospital Course Rapid Afib to Flutter; currently SR - admit to ICU - cARDIOLOGY CONSULT- Dr Monson notified VDRF - Pulmonary consult- Dr Ko notified Decub - right hip/sacrum; sp debridment - wound care consult - wound care per plastic sx - DIETARY consult Osteomylitis right humeral head - ID Consult Progressive supranuclear palsy - Diabetes Chronic diastolic CHF -Dysphagia with GT placement - Anemia of chronic disease - Acute metabolic and chronic encephalopathy Result Diagram: 11/09/18 0500 11/09/18 0500 Results 24hrs Laboratory Tests Test 11/08/18 12:20 11/08/18 16:58 11/08/18 18:32 11/08/18 18:40 Bedside Glucose 115 171 Troponin I 0.018 Lactic Acid Level 0.8 Test 11/08/18 19:00 11/08/18 20:45 11/09/18 00:23 11/09/18 00:45 Urine Color YELLOW Urine Clarity SLIGHTLY CLOUDY A Urine pH 5.0 Urine Specific 1.023 [place] Urine Ketones TRACE A Urine Nitrite NEGATIVE Urine Bilirubin NEGATIVE Urine Urobilinogen NEGATIVE Urine Leukocyte 2+ H Esterase Urine Microscopic 68 H RBC Urine Microscopic 27 H WBC Urine Bacteria FEW A Urine Mucus FEW A Urine Yeast FEW A (Budding) Urine Hemoglobin 1+ H Urine Glucose NEGATIVE Urine Total 1+ H Protein Bedside Glucose 169 150 Troponin I 0.026 Test 11/09/18 05:00 11/09/18 05:58 11/09/18 09:08 White Blood Count 5.8 Red Blood Count 2.81 #L Hemoglobin 7.2 #L Hematocrit 23.8 #L Mean Corpuscular 84.7 Volume Mean Corpuscular 25.6 L Hemoglobin Mean Corpuscular 30.3 L Hemoglobin Concent Red Cell 17.6 H Distribution Width Platelet Count 192 Mean Platelet 11.2 H Volume Immature 0.300 Granulocytes % Neutrophils % 65.9 Lymphocytes % 22.3 Monocytes % 7.7 Eosinophils % 3.1 Basophils % 0.7 Nucleated Red 0.0 Blood Cells % Immature 0.020 Granulocytes # Neutrophils # 3.8 Lymphocytes # 1.3 Monocytes # 0.5 Eosinophils # 0.2 Basophils # 0.0 Nucleated Red 0.0 Blood Cells # Sodium Level 143 Potassium Level 4.1 Chloride Level 109 Carbon Dioxide 26 Level Anion Gap 8 Blood Urea 18 Nitrogen Creatinine 0.30 L Est Glomerular Filtrat Rate mL/min Glucose Level 119 Calcium Level 8.7 Total Bilirubin 0.1 L Direct Bilirubin 0.00 Indirect Bilirubin 0.1 Aspartate Amino 9 L Transf (AST/SGOT) Alanine 15 Aminotransferase ( ALT/SGPT) Alkaline 110 Phosphatase Troponin I 0.029 Total Protein 5.3 #L Albumin 2.8 L Globulin 2.50 Albumin/Globulin 1.12 Ratio Bedside Glucose 132 105 Subjective 24 Hr Interval Summary Free Text/Dictation Patient sedated and intubated Exam/Review of Systems Exam Vitals Vital Signs Date Temp Pulse Resp B/P (MAP) Pulse Ox O2 O2 Flow FiO2 Time Delivery Rate 11/09/18 76 20 114/56 Trach 11:00 (75) Collar 11/09/18 100 09:00 11/09/18 98.4 08:00 11/09/18 5.0 08:00 11/09/18 28 02:15 Intake and Output 11/08/18 11/08/18 11/09/18 1515:00 23:00 07:00 IntakeIntake Total 890 ml 1422.50 ml 1308.75 ml OutputOutput Total 325 ml 565 ml 400 ml BalanceBalance 565 ml 857.50 ml 908.75 ml Constitutional: well developed Head: normocephalic, atraumatic Neck: supple Respiratory: diminished breath sounds Cardiovascular: regular rate and rhythm Gastrointestinal: soft, non-tender Extremities: normal pulses Results Results 24hrs Laboratory Tests Test 11/08/18 12:20 11/08/18 16:58 11/08/18 18:32 11/08/18 18:40 Bedside Glucose 115 171 Troponin I 0.018 Lactic Acid Level 0.8 Test 11/08/18 19:00 11/08/18 20:45 11/09/18 00:23 11/09/18 00:45 Urine Color YELLOW Urine Clarity SLIGHTLY CLOUDY A Urine pH 5.0 Urine Specific 1.023 [place] Urine Ketones TRACE A Urine Nitrite NEGATIVE Urine Bilirubin NEGATIVE Urine Urobilinogen NEGATIVE Urine Leukocyte 2+ H Esterase Urine Microscopic 68 H RBC Urine Microscopic 27 H WBC Urine Bacteria FEW A Urine Mucus FEW A Urine Yeast FEW A (Budding) Urine Hemoglobin 1+ H Urine Glucose NEGATIVE Urine Total 1+ H Protein Bedside Glucose 169 150 Troponin I 0.026 Test 11/09/18 05:00 11/09/18 05:58 11/09/18 09:08 White Blood Count 5.8 Red Blood Count 2.81 #L Hemoglobin 7.2 #L Hematocrit 23.8 #L Mean Corpuscular 84.7 Volume Mean Corpuscular 25.6 L Hemoglobin Mean Corpuscular 30.3 L Hemoglobin Concent Red Cell 17.6 H Distribution Width Platelet Count 192 Mean Platelet 11.2 H Volume Immature 0.300 Granulocytes % Neutrophils % 65.9 Lymphocytes % 22.3 Monocytes % 7.7 Eosinophils % 3.1 Basophils % 0.7 Nucleated Red 0.0 Blood Cells % Immature 0.020 Granulocytes # Neutrophils # 3.8 Lymphocytes # 1.3 Monocytes # 0.5 Eosinophils # 0.2 Basophils # 0.0 Nucleated Red 0.0 Blood Cells # Sodium Level 143 Potassium Level 4.1 Chloride Level 109 Carbon Dioxide 26 Level Anion Gap 8 Blood Urea 18 Nitrogen Creatinine 0.30 L Est Glomerular Filtrat Rate mL/min Glucose Level 119 Calcium Level 8.7 Total Bilirubin 0.1 L Direct Bilirubin 0.00 Indirect Bilirubin 0.1 Aspartate Amino 9 L Transf (AST/SGOT) Alanine 15 Aminotransferase ( ALT/SGPT) Alkaline 110 Phosphatase Troponin I 0.029 Total Protein 5.3 #L Albumin 2.8 L Globulin 2.50 Albumin/Globulin 1.12 Ratio Bedside Glucose 132 105 Medications Medication Current Medications Sodium Chloride 1,000 ml @ 100 mls/hr Q10H IV Last administered on 11/09/18at 02:35; Admin Dose 100 MLS/HR; Start 11/08/18 at 05:30 Acetaminophen (Tylenol Liquid) 650 mg Q6H PRN GTB PAIN AND/OR INFLAMMATION; Start 11/08/18 at 22:00 Albuterol (Proventil 0.083% (Neb)) 2.5 mg Q6H RESP THERAPY HHN Last administered on 11/09/18at 09:19; Admin Dose 2.5 MG; Start 11/08/18 at 08:00 Ascorbic Acid (Vitamin C) 500 mg BID GTB Last administered on 11/09/18 09:03; Admin Dose 500 MG; Start 11/08/18 at 09:00 Aspirin (Aspirin) 81 mg BID GTB Last administered on 11/09/18 09:03; Admin Dose 81 MG; Start 11/08/18 at 09:00 Baclofen (Lioresal) 20 mg DAILY GTB Last administered on 11/09/18 09:03; Admin Dose 20 MG; Start 11/08/18 at 09:00 Cholecalciferol (Vitamin D) 2,000 unit DAILY GTB Last administered on 11/09/18 09:04; Admin Dose 2,000 UNIT; Start 11/08/18 at 09:00 Clonazepam (Klonopin) 0.5 mg BID GTB Last administered on 11/08/18 20:35; Admin Dose 0.5 MG; Start 11/08/18 at 09:00 Cyanocobalamin (Vitamin B12) 500 mcg DAILY GTB Last administered on 11/09/18 09:03; Admin Dose 500 MCG; Start 11/08/18 at 09:00 Acetaminophen/ Hydrocodone Bitart ([place] (5/325)) 1 tab Q4H PRN GTB MODERATE PAIN LEVEL 4-6; Start 11/08/18 at 04:30 Miscellaneous Information 1 ea NOTE XX ; Start 11/08/18 at 05:00 Ipratropium [place] (Atrovent 0.02% (Neb)) 0.5 mg Q6HWA RESP THERAPY HHN Last administered on 11/09/18 09:18; Admin Dose 0.5 MG; Start 11/08/18 at 08:00 Lactobacillus Acidophilus/ Rhamnosus (Culturelle) 1 cap BID GTB Last administered on 11/09/18 09:02; Admin Dose 1 CAP; Start 11/08/18 at 09:00 Lansoprazole (Prevacid) 30 mg BID@18 GTB Last administered on 11/09/18 05:59; Admin Dose 30 MG; Start 11/08/18 at 06:00 Levetiracetam (Keppra Liquid) 500 mg BID GTB Last administered on 11/09/18 09:02; Admin Dose 500 MG; Start 11/08/18 at 09:00 Lisinopril (Zestril) 5 mg DAILY GTB Last administered on 11/09/18at 09:03; Admin Dose 5 MG; Start 11/08/18 at 09:00 Metoprolol Tartrate (Lopressor) 25 mg BID GTB ; Start 11/08/18 at 09:00 Multivitamins (Multivitamin) 30 ml DAILY GTB Last administered on 11/09/18at 09:02; Admin Dose 30 ML; Start 11/08/18 at 09:00 Ondansetron HCl (Zofran Inj) 4 mg Q6H PRN IV NAUSEA AND/OR VOMITING; Start 11/08/18 at 05:30 Polyethylene Glycol (Miralax) 17 gm BID GTB ; Start 11/08/18 at 09:00 Sertraline HCl (Zoloft) 50 mg DAILY GTB Last administered on 11/09/18at 09:03; Admin Dose 50 MG; Start 11/08/18 at 09:00 Sodium Hypochlorite (Dakins Diluted (40)) 1 applic BID TP Last administered on 11/09/18at 09:05; Admin Dose 1 APPLIC; Start 11/08/18 at 09:00 Zinc Sulfate (Zinc Sulfate) 220 mg DAILY GTB Last administered on 11/09/18at 09:03; Admin Dose 220 MG; Start 11/08/18 at 09:00 Zolpidem Tartrate (Ambien) 5 mg HS PRN PO INSOMNIA; Start 11/08/18 at 05:30 Miscellaneous Information (Pending [facility] Order For Wound Care) This patient donato... PRN PRN XX WOUND CARE; Start 11/08/18 at 05:30 Metoprolol Tartrate (Lopressor) 5 mg Q4H IV ; Start 11/08/18 at 09:00 Insulin Aspart (Novolog Insulin Pen) NOVOLOG *MILD* ALGORI... Q4 SC Last administered on 11/09/18at 00:48; Admin Dose 1 UNIT; Start 11/08/18 at 09:00 Miscellaneous Information 1 ea NOTE XX ; Start 11/08/18 at 08:00 Glucose (Glutose) 15 gm Q15M PRN PO DECREASED GLUCOSE; Start 11/08/18 at 08:00 Glucose (Glutose) 22.5 gm Q15M PRN PO DECREASED GLUCOSE; Start 11/08/18 at 08:00 Dextrose (D50w Syringe) 25 ml Q15M PRN IV DECREASED GLUCOSE; Start 11/08/18 at 08:00 Dextrose (D50w Syringe) 50 ml Q15M PRN IV DECREASED GLUCOSE; Start 11/08/18 at 08:00 Glucagon (Glucagen) 1 mg Q15M PRN IM DECREASED GLUCOSE; Start 11/08/18 at 08:00 Glucose (Glutose) 15 gm Q15M PRN BUCCAL DECREASED GLUCOSE; Start 11/08/18 at 08:00 Amiodarone HCl 900 mg/Dextrose 500 ml @ 0 mls/hr Q0M IV Last administered on 11/08/18at 14:43; Admin Dose 33.3 MLS/HR; Start 11/08/18 at 12:30 Norepinephrine 250 ml @ 1.875 mls/ hr TITRATE IV Last administered on 11/08/18at 15:44; Admin Dose 7.5 MLS/HR; Start 11/08/18 at 15:30 IV Flush (NS 10 ml) 10 ml PRN PRN IV IV PROTOCOL; Start 11/08/18 at 18:00 KALEY NO Nov 09, 2018 11:35
--- NOTE | 2018-11-09 13:42 | CONS ---
Assessment/Plan Assessment/Plan Hospital Course (Demo Recall) IMPRESSION: 1. Paroxysmal atrial fibrillation flutter with rapid ventricular response, currently in sinus rhythm but as of this morning was in rapid atrial fibrillation and flutter. 2. Hypotension, borderline. 3. Congestive heart failure, systolic, acute on chronic. 4. Cardiomyopathy with mildly depressed left ventricular ejection fraction, last approximately 40% to 45% by echo 10/2018. 5. Encephalopathy, chronic. 6. Progressive supranuclear palsy. 7. Anemia. 8. Diabetes mellitus. Recc: -ICU -Did not complete IV amio load and was not contacted about it? -Will start po amio now in attempt to maintain SR -BB/ACEI as tolerated only -Follow volume status closely Consultation Date/Type/Reason Admit Date/Time Nov 08, 2018 at 03:55 Initial Consult Date 11/08/18 Type of Consult Cardiology Reason for Consultation AF Requesting Provider: NADEEN CHO Date/Time of Note DATE: 11/09/18 TIME: 13:38 Exam/Review of Systems Vital Signs Vitals Vital Signs Date Temp Pulse Resp B/P (MAP) Pulse Ox O2 O2 Flow FiO2 Time Delivery Rate 11/09/18 72 12:00 11/09/18 20 114/56 Trach 11:00 (75) Collar 11/09/18 100 09:00 11/09/18 98.4 08:00 11/09/18 5.0 08:00 11/09/18 28 02:15 Intake and Output 11/08/18 11/08/18 11/09/18 1515:00 23:00 07:00 IntakeIntake Total 890 ml 1422.50 ml 1308.75 ml OutputOutput Total 325 ml 565 ml 400 ml BalanceBalance 565 ml 857.50 ml 908.75 ml Exam Exam Review of Systems: CONSTITUTIONAL: No fevers, chills. PULMONARY: No sob CARDIOVASCULAR: No chest pain/palpitations GASTROINTESTINAL: No nausea/vomiting. GENITOURINARY: No hematuria/dysuria. MUSCULOSKELETAL: No myagias/arthalgias. PSYCHIATRIC: The patient denies depression. NEUROLOGIC: No weakness Constitutional: alert Psych: no complaints Head: normocephalic ENMT: mucosa pink and moist Neck: supple, jvd (9 cm water) Respiratory: diminished breath sounds (at bases/B) Cardiovascular: regular rate and rhythm Gastrointestinal: soft, non-tender Musculoskeletal: muscle tone (normal) Extremities: edema (none) Neurological: other (encaphalopathic) Labs Result Diagram: 11/09/18 0500 11/09/18 0500 Results 24hrs Laboratory Tests Test 11/08/18 16:58 11/08/18 18:32 11/08/18 18:40 11/08/18 19:00 Bedside Glucose 171 Troponin I 0.018 Lactic Acid Level 0.8 Urine Color YELLOW Urine Clarity SLIGHTLY CLOUDY A Urine pH 5.0 Urine Specific 1.023 [place] Urine Ketones TRACE A Urine Nitrite NEGATIVE Urine Bilirubin NEGATIVE Urine Urobilinogen NEGATIVE Urine Leukocyte 2+ H Esterase Urine Microscopic 68 H RBC Urine Microscopic 27 H WBC Urine Bacteria FEW A Urine Mucus FEW A Urine Yeast FEW A (Budding) Urine Hemoglobin 1+ H Urine Glucose NEGATIVE Urine Total 1+ H Protein Test 11/08/18 20:45 11/09/18 00:23 11/09/18 00:45 11/09/18 05:00 Bedside Glucose 169 150 Troponin I 0.026 0.029 White Blood Count 5.8 Red Blood Count 2.81 #L Hemoglobin 7.2 #L Hematocrit 23.8 #L Mean Corpuscular 84.7 Volume Mean Corpuscular 25.6 L Hemoglobin Mean Corpuscular 30.3 L Hemoglobin Concent Red Cell 17.6 H Distribution Width Platelet Count 192 Mean Platelet 11.2 H Volume Immature 0.300 Granulocytes % Neutrophils % 65.9 Lymphocytes % 22.3 Monocytes % 7.7 Eosinophils % 3.1 Basophils % 0.7 Nucleated Red 0.0 Blood Cells % Immature 0.020 Granulocytes # Neutrophils # 3.8 Lymphocytes # 1.3 Monocytes # 0.5 Eosinophils # 0.2 Basophils # 0.0 Nucleated Red 0.0 Blood Cells # Sodium Level 143 Potassium Level 4.1 Chloride Level 109 Carbon Dioxide 26 Level Anion Gap 8 Blood Urea 18 Nitrogen Creatinine 0.30 L Est Glomerular Filtrat Rate mL/min Glucose Level 119 Calcium Level 8.7 Total Bilirubin 0.1 L Direct Bilirubin 0.00 Indirect Bilirubin 0.1 Aspartate Amino 9 L Transf (AST/SGOT) Alanine 15 Aminotransferase ( ALT/SGPT) Alkaline 110 Phosphatase Total Protein 5.3 #L Albumin 2.8 L Globulin 2.50 Albumin/Globulin 1.12 Ratio Test 11/09/18 05:58 11/09/18 09:07 11/09/18 09:08 11/09/18 12:25 Bedside Glucose 132 61 L 105 119 Medications Medications Current Medications Sodium Chloride 1,000 ml @ 100 mls/hr Q10H IV Last administered on 11/09/18 02:35; Admin Dose 100 MLS/HR; Start 11/08/18 at 05:30 Acetaminophen (Tylenol Liquid) 650 mg Q6H PRN GTB PAIN AND/OR INFLAMMATION; Start 11/08/18 at 22:00 Albuterol (Proventil 0.083% (Neb)) 2.5 mg Q6H RESP THERAPY HHN Last administered on 11/09/18 09:19; Admin Dose 2.5 MG; Start 11/08/18 at 08:00 Ascorbic Acid (Vitamin C) 500 mg BID GTB Last administered on 11/09/18 09:03; Admin Dose 500 MG; Start 11/08/18 at 09:00 Aspirin (Aspirin) 81 mg BID GTB Last administered on 11/09/18 09:03; Admin Dose 81 MG; Start 11/08/18 at 09:00 Baclofen (Lioresal) 20 mg DAILY GTB Last administered on 11/09/18 09:03; Admin Dose 20 MG; Start 11/08/18 at 09:00 Cholecalciferol (Vitamin D) 2,000 unit DAILY GTB Last administered on 11/09/18 09:04; Admin Dose 2,000 UNIT; Start 11/08/18 at 09:00 Clonazepam (Klonopin) 0.5 mg BID GTB Last administered on 11/08/18 20:35; Admin Dose 0.5 MG; Start 11/08/18 at 09:00 Cyanocobalamin (Vitamin B12) 500 mcg DAILY GTB Last administered on 11/09/18 09 :03; Admin Dose 500 MCG; Start 11/08/18 at 09:00 Acetaminophen/ Hydrocodone Bitart ([place] (5/325)) 1 tab Q4H PRN GTB MODERATE PAIN LEVEL 4-6; Start 11/08/18 at 04:30 Miscellaneous Information 1 ea NOTE XX ; Start 11/08/18 at 05:00 Ipratropium Joiner (Atrovent 0.02% (Neb)) 0.5 mg Q6HWA RESP THERAPY HHN Last administered on 11/09/18 09:18; Admin Dose 0.5 MG; Start 11/08/18 at 08:00 Lactobacillus Acidophilus/ Rhamnosus (Culturelle) 1 cap BID GTB Last administered on 11/09/18 09:02; Admin Dose 1 CAP; Start 11/08/18 at 09:00 Lansoprazole (Prevacid) 30 mg BID@18 GTB Last administered on 11/09/18 05:59; Admin Dose 30 MG; Start 11/08/18 at 06:00 Levetiracetam (Keppra Liquid) 500 mg BID GTB Last administered on 11/09/18 09:02; Admin Dose 500 MG; Start 11/08/18 at 09:00 Lisinopril (Zestril) 5 mg DAILY GTB Last administered on 11/09/18 09:03; Admin Dose 5 MG; Start 11/08/18 at 09:00 Metoprolol Tartrate (Lopressor) 25 mg BID GTB ; Start 11/08/18 at 09:00 Multivitamins (Multivitamin) 30 ml DAILY GTB Last administered on 11/09/18 09:02; Admin Dose 30 ML; Start 11/08/18 at 09:00 Ondansetron HCl (Zofran Inj) 4 mg Q6H PRN IV NAUSEA AND/OR VOMITING; Start 11/08/18 at 05:30 Polyethylene Glycol (Miralax) 17 gm BID GTB ; Start 11/08/18 at 09:00 Sertraline HCl (Zoloft) 50 mg DAILY GTB Last administered on 11/09/18 09:03; Admin Dose 50 MG; Start 11/08/18 at 09:00 Sodium Hypochlorite (Dakins Diluted (40)) 1 applic BID TP Last administered on 11/09/18 09:05; Admin Dose 1 APPLIC; Start 11/08/18 at 09:00 Zinc Sulfate (Zinc Sulfate) 220 mg DAILY GTB Last administered on 11/09/18 09:03; Admin Dose 220 MG; Start 11/08/18 at 09:00 Zolpidem Tartrate (Ambien) 5 mg HS PRN PO INSOMNIA; Start 11/08/18 at 05:30 Miscellaneous Information (Pending Santyl Order For Wound Care) This patient donato... PRN PRN XX WOUND CARE; Start 11/08/18 at 05:30 Metoprolol Tartrate (Lopressor) 5 mg Q4H IV ; Start 11/08/18 at 09:00 Insulin Aspart (Novolog Insulin Pen) NOVOLOG *MILD* ALGORI... Q4 SC Last administered on 11/09/18at 00:48; Admin Dose 1 UNIT; Start 11/08/18 at 09:00 Miscellaneous Information 1 ea NOTE XX ; Start 11/08/18 at 08:00 Glucose (Glutose) 15 gm Q15M PRN PO DECREASED GLUCOSE; Start 11/08/18 at 08:00 Glucose (Glutose) 22.5 gm Q15M PRN PO DECREASED GLUCOSE; Start 11/08/18 at 08:00 Dextrose (D50w Syringe) 25 ml Q15M PRN IV DECREASED GLUCOSE; Start 11/08/18 at 08:00 Dextrose (D50w Syringe) 50 ml Q15M PRN IV DECREASED GLUCOSE; Start 11/08/18 at 08:00 Glucagon (Glucagen) 1 mg Q15M PRN IM DECREASED GLUCOSE; Start 11/08/18 at 08:00 Glucose (Glutose) 15 gm Q15M PRN BUCCAL DECREASED GLUCOSE; Start 11/08/18 at 08:00 Amiodarone HCl 900 mg/Dextrose 500 ml @ 0 mls/hr Q0M IV Last administered on 11/08/18at 14:43; Admin Dose 33.3 MLS/HR; Start 11/08/18 at 12:30 Norepinephrine 250 ml @ 1.875 mls/ hr TITRATE IV Last administered on 11/08/18at 15:44; Admin Dose 7.5 MLS/HR; Start 11/08/18 at 15:30 IV Flush (NS 10 ml) 10 ml PRN PRN IV IV PROTOCOL; Start 11/08/18 at 18:00 MAITE VAZQUEZ Nov 09, 2018 13:42
--- NOTE | 2018-11-09 19:34 | CONS ---
Assessment/Plan Assessment/Plan Hospital Course (Demo Recall) 1. sacral and right hip wound: recently completed abx tx for osteo; S/p Girdlestone resection arthroplasty and flap reconstruction 09/23/2018, currently w exposed bone- concern for dislocation -debridement prn -local care -frequent turning and off-loading -low air loss mattress -vitamin c -short term zinc -optimize nutrition -CT imaging -Ortho consult 2. Paroxysmal Atiral fibrillation with RVR: -per cards -rate control 3. Respiratory faillure: s/p trach -pulm toilet 4. Supranuclear palsy -injury prevention/supportive 5. DM: -glucose mgt 6. Hypochromic normocytic anemia: -monitor and tx as needed Thank you. Patient seen and examined in collaboration with Dr. Gilmar Wiggins. Consultation Date/Type/Reason Admit Date/Time Nov 08, 2018 at 03:55 Date of Consultation: Nov 09, 2018 Type of Consult surgical Reason for Consultation hip and sacral wounds Requesting Provider: NADEEN CHO Date/Time of Note DATE: 11/09/18 TIME: 18:57 Hx of Present Illness Brenda Hernandez is a 73 yo woman with pmh of diabetes progressive supranuclear palsy, G tube placement, acute hypoxic respiratory failure, s/p trach, chronic sacral decubitus ulcer extending to bilateral buttocks, s/p debridements by Dr. Pierson at [facility], recent Girdlestone resection arthroplasty and flap reconstruction 09/23/2018 and osteomyelitis, treated by ID team with antibiotics. She was transferred from [facility] to [facility] with reports of atrial fibrillation with RVR and marginal blood pressure. She has had episodes of atrial fibrillation but is currently in sinus rhythm. She is in ICU for close observation and is being managed by cardiology. Reportedly, patient also have moderate oral secretions, as well as minimal odor from wounds. No reports of fevers, labored breathing, vomiting, diarrhea, hematuria, seizures or rash. General surgery was asked to evaluate and manage her wounds. 12 point ros was reviewed except as stated in hpi. Past Medical History as above Medical History: congestive heart failure (Diastolic), diabetes, hypertension Home Meds Reported Medications [Tramadol] No Conflict Check 06/26/13 [Oxybutynin] No Conflict Check 02/18/13 [Furosemide] No Conflict Check 02/18/13 [Atorvastatin] No Conflict Check 02/18/13 [Lorazepam] No Conflict Check 02/18/13 Estrogens Conjugated* (Premarin*) 0.45 Mg Tablet, 1.5 MG PO DAILY 02/18/13 Medications Current Medications Sodium Chloride 1,000 ml @ 100 mls/hr Q10H IV Last administered on 11/09/18 13:00; Admin Dose 100 MLS/HR; Start 11/08/18 at 05:30 Acetaminophen (Tylenol Liquid) 650 mg Q6H PRN GTB PAIN AND/OR INFLAMMATION; Start 11/08/18 at 22:00 Albuterol (Proventil 0.083% (Neb)) 2.5 mg Q6H RESP THERAPY HHN Last administered on 11/09/18 16:09; Admin Dose 2.5 MG; Start 11/08/18 at 08:00 Ascorbic Acid (Vitamin C) 500 mg BID GTB Last administered on 11/09/18 09:03; Admin Dose 500 MG; Start 11/08/18 at 09:00 Aspirin (Aspirin) 81 mg BID GTB Last administered on 11/09/18 09:03; Admin Dose 81 MG; Start 11/08/18 at 09:00 Baclofen (Lioresal) 20 mg DAILY GTB Last administered on 11/09/18 09:03; Admin Dose 20 MG; Start 11/08/18 at 09:00 Cholecalciferol (Vitamin D) 2,000 unit DAILY GTB Last administered on 11/09/18 09:04; Admin Dose 2,000 UNIT; Start 11/08/18 at 09:00 Clonazepam (Klonopin) 0.5 mg BID GTB Last administered on 11/09/18 09:00; Admin Dose 0.5 MG; Start 11/08/18 at 09:00 Cyanocobalamin (Vitamin B12) 500 mcg DAILY GTB Last administered on 11/09/18 09:03; Admin Dose 500 MCG; Start 11/08/18 at 09:00 Acetaminophen/ Hydrocodone Bitart ([place] (5/325)) 1 tab Q4H PRN GTB MODERATE PAIN LEVEL 4-6; Start 11/08/18 at 04:30 Miscellaneous Information 1 ea NOTE XX ; Start 11/08/18 at 05:00 Ipratropium [place]cker (Atrovent 0.02% (Neb)) 0.5 mg Q6HWA RESP THERAPY HHN Last administered on 11/09/18 16:10; Admin Dose 0.5 MG; Start 11/08/18 at 08:00 Lactobacillus Acidophilus/ Rhamnosus (Culturelle) 1 cap BID GTB Last administered on 11/09/18 09:02; Admin Dose 1 CAP; Start 11/08/18 at 09:00 Lansoprazole (Prevacid) 30 mg BID@,18 GTB Last administered on 11/09/18 17:44; Admin Dose 30 MG; Start 11/08/18 at 06:00 Levetiracetam (Keppra Liquid) 500 mg BID GTB Last administered on 11/09/18 09:02; Admin Dose 500 MG; Start 11/08/18 at 09:00 Metoprolol Tartrate (Lopressor) 25 mg BID GTB ; Start 11/08/18 at 09:00 Multivitamins (Multivitamin) 30 ml DAILY GTB Last administered on 11/09/18 09:02; Admin Dose 30 ML; Start 11/08/18 at 09:00 Ondansetron HCl (Zofran Inj) 4 mg Q6H PRN IV NAUSEA AND/OR VOMITING; Start 11/08/18 at 05:30 Polyethylene Glycol (Miralax) 17 gm BID GTB ; Start 11/08/18 at 09:00 Sertraline HCl (Zoloft) 50 mg DAILY GTB Last administered on 11/09/18 09:03; Admin Dose 50 MG; Start 11/08/18 at 09:00 Sodium Hypochlorite (Dakins Diluted (1/40)) 1 applic BID TP Last administered o n 11/09/18 09:05; Admin Dose 1 APPLIC; Start 11/08/18 at 09:00 Zinc Sulfate (Zinc Sulfate) 220 mg DAILY GTB Last administered on 11/09/18 09:03; Admin Dose 220 MG; Start 11/08/18 at 09:00 Zolpidem Tartrate (Ambien) 5 mg HS PRN PO INSOMNIA; Start 11/08/18 at 05:30 [facility] This patient donato... PRN PRN XX WOUND CARE; Start 11/08/18 at 05:30 Metoprolol Tartrate (Lopressor) 5 mg Q4H IV ; Start 11/08/18 at 09:00 Insulin Aspart (Novolog Insulin Pen) NOVOLOG *MILD* ALGORI... Q4 SC Last administered on 11/09/18at 00:48; Admin Dose 1 UNIT; Start 11/08/18 at 09:00 Miscellaneous Information 1 ea NOTE XX ; Start 11/08/18 at 08:00 Glucose (Glutose) 15 gm Q15M PRN PO DECREASED GLUCOSE; Start 11/08/18 at 08:00 Glucose (Glutose) 22.5 gm Q15M PRN PO DECREASED GLUCOSE; Start 11/08/18 at 08:00 Dextrose (D50w Syringe) 25 ml Q15M PRN IV DECREASED GLUCOSE; Start 11/08/18 at 08:00 Dextrose (D50w Syringe) 50 ml Q15M PRN IV DECREASED GLUCOSE; Start 11/08/18 at 08:00 Glucagon (Glucagen) 1 mg Q15M PRN IM DECREASED GLUCOSE; Start 11/08/18 at 08:00 Glucose (Glutose) 15 gm Q15M PRN BUCCAL DECREASED GLUCOSE; Start 11/08/18 at 08:00 IV Flush (NS 10 ml) 10 ml PRN PRN IV IV PROTOCOL; Start 11/08/18 at 18:00 Amiodarone HCl (Cordarone) 200 mg BID PO ; Start 11/09/18 at 21:00 Lisinopril (Zestril) 2.5 mg DAILY GTB ; Start 11/10/18 at 09:00 Allergies: Coded Allergies: Penicillins (Verified Allergy, Unknown, 07/06/13) morphine (Verified Adverse Reaction, Mild, "LOOPY", 10/08/18) Uncoded Allergies: PLASTIC TAPE (Allergy, Unknown, 04/01/07) Past Surgical History as above Family History Significant Family History: no pertinent family hx Social History Alcohol Use: none Drug Use: none Exam/Review of Systems Exam Vitals Vital Signs Date Temp Pulse Resp B/P (MAP) Pulse Ox O2 O2 Flow FiO2 Time Delivery Rate 11/09/18 5.0 28 17:58 11/09/18 62 18 100 Aerosol 16:10 T Tube 11/09/18 116/51 15:00 (72) 11/09/18 98.2 13:00 Intake and Output 11/08/18 11/08/18 11/09/18 1515:00 23:00 07:00 IntakeIntake Total 890 ml 1422.50 ml 1308.75 ml OutputOutput Total 325 ml 565 ml 400 ml BalanceBalance 565 ml 857.50 ml 908.75 ml Constitutional: alert, other; No distress Head: normocephalic, atraumatic Eyes: nl conjunctiva, nl lids, nl sclera ENMT: nl external ears & nose, nl lips & teeth, mucosa pink and moist Neck: non-tender Respiratory: normal air movement; No congested cough Cardiovascular: regular rate and rhythm, nl pulses; No edema Gastrointestinal: soft, non-tender; No distended Genitourinary - Female: nl adnexae, nl external genitalia Musculoskeletal: other; No muscle tone Extremities: normal pulses; No edema, No tenderness Neurological: No nl mental status, No nl speech, No nl strength Skin: other; No rash or lesions, No diaphoresis Results Result Diagram: 11/09/18 0500 11/09/18 0500 Results 24hrs Laboratory Tests Test 11/08/18 19:00 11/08/18 20:45 11/09/18 00:23 11/09/18 00:45 Urine Color YELLOW Urine Clarity SLIGHTLY CLOUDY A Urine pH 5.0 Urine Specific 1.023 [place] Urine Ketones TRACE A Urine Nitrite NEGATIVE Urine Bilirubin NEGATIVE Urine Urobilinogen NEGATIVE Urine Leukocyte 2+ H Esterase Urine Microscopic 68 H RBC Urine Microscopic 27 H WBC Urine Bacteria FEW A Urine Mucus FEW A Urine Yeast FEW A (Budding) Urine Hemoglobin 1+ H Urine Glucose NEGATIVE Urine Total 1+ H Protein Bedside Glucose 169 150 Troponin I 0.026 Test 11/09/18 05:00 11/09/18 05:58 11/09/18 09:07 11/09/18 09:08 White Blood Count 5.8 Red Blood Count 2.81 #L Hemoglobin 7.2 #L Hematocrit 23.8 #L Mean Corpuscular 84.7 Volume Mean Corpuscular 25.6 L Hemoglobin Mean Corpuscular 30.3 L Hemoglobin Concent Red Cell 17.6 H Distribution Width Platelet Count 192 Mean Platelet 11.2 H Volume Immature 0.300 Granulocytes % Neutrophils % 65.9 Lymphocytes % 22.3 Monocytes % 7.7 Eosinophils % 3.1 Basophils % 0.7 Nucleated Red 0.0 Blood Cells % Immature 0.020 Granulocytes # Neutrophils # 3.8 Lymphocytes # 1.3 Monocytes # 0.5 Eosinophils # 0.2 Basophils # 0.0 Nucleated Red 0.0 Blood Cells # Sodium Level 143 Potassium Level 4.1 Chloride Level 109 Carbon Dioxide 26 Level Anion Gap 8 Blood Urea 18 Nitrogen Creatinine 0.30 L Est Glomerular Filtrat Rate mL/min Glucose Level 119 Calcium Level 8.7 Total Bilirubin 0.1 L Direct Bilirubin 0.00 Indirect Bilirubin 0.1 Aspartate Amino 9 L Transf (AST/SGOT) Alanine 15 Aminotransferase ( ALT/SGPT) Alkaline 110 Phosphatase Troponin I 0.029 Total Protein 5.3 #L Albumin 2.8 L Globulin 2.50 Albumin/Globulin 1.12 Ratio Bedside Glucose 132 61 L 105 Test 11/09/18 12:25 11/09/18 17:51 Bedside Glucose 119 115 Medications Medication Current Medications Sodium Chloride 1,000 ml @ 100 mls/hr Q10H IV Last administered on 11/09/18 13:00; Admin Dose 100 MLS/HR; Start 11/08/18 at 05:30 Acetaminophen (Tylenol Liquid) 650 mg Q6H PRN GTB PAIN AND/OR INFLAMMATION; Start 11/08/18 at 22:00 Albuterol (Proventil 0.083% (Neb)) 2.5 mg Q6H RESP THERAPY HHN Last administered on 11/09/18 16:09; Admin Dose 2.5 MG; Start 11/08/18 at 08:00 Ascorbic Acid (Vitamin C) 500 mg BID GTB Last administered on 11/09/18 09:03; Admin Dose 500 MG; Start 11/08/18 at 09:00 Aspirin (Aspirin) 81 mg BID GTB Last administered on 11/09/18 09:03; Admin Dose 81 MG; Start 11/08/18 at 09:00 Baclofen (Lioresal) 20 mg DAILY GTB Last administered on 11/09/18 09:03; Admin Dose 20 MG; Start 11/08/18 at 09:00 Cholecalciferol (Vitamin D) 2,000 unit DAILY GTB Last administered on 11/09/18 09:04; Admin Dose 2,000 UNIT; Start 11/08/18 at 09:00 Clonazepam (Klonopin) 0.5 mg BID GTB Last administered on 11/09/18 09:00; Admin Dose 0.5 MG; Start 11/08/18 at 09:00 Cyanocobalamin (Vitamin B12) 500 mcg DAILY GTB Last administered on 11/09/18 09:03; Admin Dose 500 MCG; Start 11/08/18 at 09:00 Acetaminophen/ Hydrocodone Bitart ([place] (5/325)) 1 tab Q4H PRN GTB MODERATE PAIN LEVEL 4-6; Start 11/08/18 at 04:30 Miscellaneous Information 1 ea NOTE XX ; Start 11/08/18 at 05:00 Ipratropium [place] (Atrovent 0.02% (Neb)) 0.5 mg Q6HWA RESP THERAPY HHN Last administered on 11/09/18 16:10; Admin Dose 0.5 MG; Start 11/08/18 at 08:00 Lactobacillus Acidophilus/ Rhamnosus (Culturelle) 1 cap BID GTB Last administered on 11/09/18 09:02; Admin Dose 1 CAP; Start 11/08/18 at 09:00 Lansoprazole (Prevacid) 30 mg BID@,18 GTB Last administered on 11/09/18 17:44; Admin Dose 30 MG; Start 11/08/18 at 06:00 Levetiracetam (Keppra Liquid) 500 mg BID GTB Last administered on 11/09/18 09:02; Admin Dose 500 MG; Start 11/08/18 at 09:00 Metoprolol Tartrate (Lopressor) 25 mg BID GTB ; Start 11/08/18 at 09:00 Multivitamins (Multivitamin) 30 ml DAILY GTB Last administered on 11/09/18 09:02; Admin Dose 30 ML; Start 11/08/18 at 09:00 Ondansetron HCl (Zofran Inj) 4 mg Q6H PRN IV NAUSEA AND/OR VOMITING; Start 11/08/18 at 05:30 Polyethylene Glycol (Miralax) 17 gm BID GTB ; Start 11/08/18 at 09:00 Sertraline HCl (Zoloft) 50 mg DAILY GTB Last administered on 11/09/18 09:03; Admin Dose 50 MG; Start 11/08/18 at 09:00 Sodium Hypochlorite (Dakins Diluted (/40)) 1 applic BID TP Last administered on 11/09/18at 09:05; Admin Dose 1 APPLIC; Start 11/08/18 at 09:00 Zinc Sulfate (Zinc Sulfate) 220 mg DAILY GTB Last administered on 11/09/18at 09:03; Admin Dose 220 MG; Start 11/08/18 at 09:00 Zolpidem Tartrate (Ambien) 5 mg HS PRN PO INSOMNIA; Start 11/08/18 at 05:30 Miscellaneous Information (Pending Santyl Order For Wound Care) This patient donato... PRN PRN XX WOUND CARE; Start 11/08/18 at 05:30 Metoprolol Tartrate (Lopressor) 5 mg Q4H IV ; Start 11/08/18 at 09:00 Insulin Aspart (Novolog Insulin Pen) NOVOLOG *MILD* ALGORI... Q4 SC Last administered on 11/09/18at 00:48; Admin Dose 1 UNIT; Start 11/08/18 at 09:00 Miscellaneous Information 1 ea NOTE XX ; Start 11/08/18 at 08:00 Glucose (Glutose) 15 gm Q15M PRN PO DECREASED GLUCOSE; Start 11/08/18 at 08:00 Glucose (Glutose) 22.5 gm Q15M PRN PO DECREASED GLUCOSE; Start 11/08/18 at 08:00 Dextrose (D50w Syringe) 25 ml Q15M PRN IV DECREASED GLUCOSE; Start 11/08/18 at 08:00 Dextrose (D50w Syringe) 50 ml Q15M PRN IV DECREASED GLUCOSE; Start 11/08/18 at 08:00 Glucagon (Glucagen) 1 mg Q15M PRN IM DECREASED GLUCOSE; Start 11/08/18 at 08:00 Glucose (Glutose) 15 gm Q15M PRN BUCCAL DECREASED GLUCOSE; Start 11/08/18 at 08:00 IV Flush (NS 10 ml) 10 ml PRN PRN IV IV PROTOCOL; Start 11/08/18 at 18:00 Amiodarone HCl (Cordarone) 200 mg BID PO ; Start 11/09/18 at 21:00 Lisinopril (Zestril) 2.5 mg DAILY GTB ; Start 11/10/18 at 09:00 JOSE ANTONIO MONTGOMERY NP Nov 09, 2018 19:15
[2018-11-09] MEDS: AMIODARONE 200 MG TAB PO SCH (21:04)
--- NOTE | 2018-11-09 21:07 | CONS ---
Assessment/Plan Assessment/Plan Hospital Course (Demo Recall) # infection of wound, OM of R hip - colonization of the wound of R hip by pseudomonas (wound culture on 10/31/2018) - s/p repeat debridement at [facility] on 11/03/[address]. [address] Pierson, the wound appeared clean during the I&D (my conversation with him on 11/06/2018) - H/o stage sacral decubitus ulcer extending to bilateral buttocks. She reportedly had total hip dislocation and exposed femoral head. CT pelvis showed e/o OM. Pt complete IV vancomycin (09/17/2018-10/29/2018) for sacral OM associated with E. faecalis - H/o sharp excisional debridement down to and including bone of the sacrum on 08/22/2018 and 09/19/2018 - H/o excision of R hip ulcer, girdlestone resection arthroplasty and flap reconstruction 09/23/2018. The surgical pathology showed osteomyelitis of R hip bone, soft tissue cellulitis, and bony margin of excision was free of the disease - h/o removal of devitalized/necrotic tissue by Dr. Pierson on 10/07/2018 # sepsis, endovascular infection, respiratory - colonization of the airway by Gram negative bacteria - h/o sepsis due to bacteremia and pneumonia - h/o bacteremia: blood cultures grew enterococcus faecalis on 09/17/2018 secondary to R hip wound infection as its wound culture on 09/16/2018 grew E. faecalis as well - H/o recurrent acute on chronic hypoxemic respiratory failure secondary to secretion retention, mucous plugging, major left lung atelectasis, severe shunting - h/o probable aspiration pneumonia. - h/o pneumonia due to pseudomonas on 09/30/2018. s/p Levaquin (10/03/18- 10/07/2018), Meropenem (restart 09/30/2018-10/03/18, 10/12/18 - 10/19/2018) and empiric Amikacin (09/30/18-10/03/18) - H/o intubation on 09/30/2018 - H/o tracheostomy on 10/04/2018 - h/o pseudomonas in urine culture on 09/17/2018 with mild pyuria; treated with Cefepime (09/20/2018-09/25/2018) # renal/ - H/o moderate L hydronephrosis per renal US - funguria, recurrent, per urine cx on 09/30/2018 and 10/12/2018. Ramires was last replaced 10/01/18 # heme/neuro - H/o acute on chronic anemia requiring PRBC - Metabolic encephalopathy - Supranuclear palsy # endo, cardiac - Diabetes Mellitus - A fib with RVR - Chronic diastolic HF (EF 40-45% with grade 1 DD per 2D Echo 10/24/2018) - H/o hypertension # allergy - Penicillin allergy (throat swelling)but Pt tolerates cefepime and ceftazidime - Resulted: [id number] <31 recommendations: - ordered/pending results: blood cultures x2, urine culture, resp culture (gram negative bacteria) - I reviewed XR of R hip (Pt had girdlestone resection arthroplasty at [facility]): I would like wound care/surgical team recommend appropriate wound care because the exposed bone is at risk for persistent infection - wound care - management d/w Pt's RN, XR tech the critical care time I took to care for this Pt today was from 1930 to 1999 Consultation Date/Type/Reason Admit Date/Time Nov 08, 2018 at 03:55 Initial Consult Date 11/09/18 Type of Consult ID Requesting Provider: NADEEN CHO Date/Time of Note DATE: 11/09/18 TIME: 20:57 24 HR Interval Summary Subjective hx not possible: pt non-verbal, pt critical, pt critical status Exam/Review of Systems Exam Vitals Vital Signs Date Temp Pulse Resp B/P (MAP) Pulse Ox O2 O2 Flow FiO2 Time Delivery Rate 11/09/18 5.0 20:00 11/09/18 70 19 100 Aerosol 28 19:38 T Tube 11/09/18 116/51 15:00 (72) 11/09/18 98.2 13:00 Intake and Output 11/08/18 11/08/18 11/09/18 1515:00 23:00 07:00 IntakeIntake Total 890 ml 1422.50 ml 1308.75 ml OutputOutput Total 325 ml 565 ml 400 ml BalanceBalance 565 ml 857.50 ml 908.75 ml Constitutional: frail Psych: confusion Head: normocephalic, atraumatic Eyes: nl conjunctiva, nl lids, nl sclera ENMT: mucosa pink and moist Neck: other (trach) Respiratory: diminished breath sounds Cardiovascular: regular rate and rhythm Gastrointestinal: soft, non-tender, other (GT); No distended Musculoskeletal: other (contractured, fractured R femur is exposed out of the soft tissue) Extremities: No edema Neurological: lethargic Skin: rash or lesions (large wound of R hip) Results Result Diagram: 11/09/18 0500 11/09/18 0500 Results 24hrs Laboratory Tests Test 11/09/18 00:23 11/09/18 00:45 11/09/18 05:00 11/09/18 05:58 Troponin I 0.026 0.029 Bedside Glucose 150 132 White Blood Count 5.8 Red Blood Count 2.81 #L Hemoglobin 7.2 #L Hematocrit 23.8 #L Mean Corpuscular Volume 84.7 Mean Corpuscular 25.6 L Hemoglobin Mean Corpuscular 30.3 L Hemoglobin Concent Red Cell Distribution 17.6 H Width Platelet Count 192 Mean Platelet Volume 11.2 H Immature Granulocytes % 0.300 Neutrophils % 65.9 Lymphocytes % 22.3 Monocytes % 7.7 Eosinophils % 3.1 Basophils % 0.7 Nucleated Red Blood 0.0 Cells % Immature Granulocytes # 0.020 Neutrophils # 3.8 Lymphocytes # 1.3 Monocytes # 0.5 Eosinophils # 0.2 Basophils # 0.0 Nucleated Red Blood 0.0 Cells # Sodium Level 143 Potassium Level 4.1 Chloride Level 109 Carbon Dioxide Level 26 Anion Gap 8 Blood Urea Nitrogen 18 Creatinine 0.30 L Est Glomerular Filtrat Rate mL/min Glucose Level 119 Calcium Level 8.7 Total Bilirubin 0.1 L Direct Bilirubin 0.00 Indirect Bilirubin 0.1 Aspartate Amino 9 L Transf (AST/SGOT) Alanine 15 Aminotransferase (ALT/SG PT) Alkaline Phosphatase 110 Total Protein 5.3 #L Albumin 2.8 L Globulin 2.50 Albumin/Globulin Ratio 1.12 Test 11/09/18 09:07 11/09/18 09:08 11/09/18 12:25 11/09/18 17:51 Bedside Glucose 61 L 105 119 115 Medications Medication Current Medications Sodium Chloride 1,000 ml @ 100 mls/hr Q10H IV Last administered on 11/09/18at 13:00; Admin Dose 100 MLS/HR; Start 11/08/18 at 05:30 Acetaminophen (Tylenol Liquid) 650 mg Q6H PRN GTB PAIN AND/OR INFLAMMATION; Start 11/08/18 at 22:00 Albuterol (Proventil 0.083% (Neb)) 2.5 mg Q6H RESP THERAPY HHN Last administered on 11/09/18 19:37; Admin Dose 2.5 MG; Start 11/08/18 at 08:00 Ascorbic Acid (Vitamin C) 500 mg BID GTB Last administered on 11/09/18 09:03; A dmin Dose 500 MG; Start 11/08/18 at 09:00 Aspirin (Aspirin) 81 mg BID GTB Last administered on 11/09/18 09:03; Admin Dose 81 MG; Start 11/08/18 at 09:00 Baclofen (Lioresal) 20 mg DAILY GTB Last administered on 11/09/18 09:03; Admin Dose 20 MG; Start 11/08/18 at 09:00 Cholecalciferol (Vitamin D) 2,000 unit DAILY GTB Last administered on 11/09/18 09:04; Admin Dose 2,000 UNIT; Start 11/08/18 at 09:00 Clonazepam (Klonopin) 0.5 mg BID GTB Last administered on 11/09/18 09:00; Admin Dose 0.5 MG; Start 11/08/18 at 09:00 Cyanocobalamin (Vitamin B12) 500 mcg DAILY GTB Last administered on 11/09/18 09:03; Admin Dose 500 MCG; Start 11/08/18 at 09:00 Acetaminophen/ Hydrocodone Bitart ([place] (5/325)) 1 tab Q4H PRN GTB MODERATE PAIN LEVEL 4-6; Start 11/08/18 at 04:30 Miscellaneous Information 1 ea NOTE XX ; Start 11/08/18 at 05:00 Ipratropium [place] (Atrovent 0.02% (Neb)) 0.5 mg Q6HWA RESP THERAPY HHN Last administered on 11/09/18 19:37; Admin Dose 0.5 MG; Start 11/08/18 at 08:00 Lactobacillus Acidophilus/ Rhamnosus (Culturelle) 1 cap BID GTB Last administered on 11/09/18 09:02; Admin Dose 1 CAP; Start 11/08/18 at 09:00 Lansoprazole (Prevacid) 30 mg BID@,18 GTB Last administered on 11/09/18at 17 :44; Admin Dose 30 MG; Start 11/08/18 at 06:00 Levetiracetam (Keppra Liquid) 500 mg BID GTB Last administered on 11/09/18 09:02; Admin Dose 500 MG; Start 11/08/18 at 09:00 Metoprolol Tartrate (Lopressor) 25 mg BID GTB ; Start 11/08/18 at 09:00 Multivitamins (Multivitamin) 30 ml DAILY GTB Last administered on 11/09/18 09:02; Admin Dose 30 ML; Start 11/08/18 at 09:00 Ondansetron HCl (Zofran Inj) 4 mg Q6H PRN IV NAUSEA AND/OR VOMITING; Start 11/08/18 at 05:30 Polyethylene Glycol (Miralax) 17 gm BID GTB ; Start 11/08/18 at 09:00 Sertraline HCl (Zoloft) 50 mg DAILY GTB Last administered on 11/09/18 09:03; Admin Dose 50 MG; Start 11/08/18 at 09:00 Sodium Hypochlorite (Dakins Diluted (1/40)) 1 applic BID TP Last administered on 11/09/18 09:05; Admin Dose 1 APPLIC; Start 11/08/18 at 09:00 Zinc Sulfate (Zinc Sulfate) 220 mg DAILY GTB Last administered on 11/09/18 09:03; Admin Dose 220 MG; Start 11/08/18 at 09:00 Zolpidem Tartrate (Ambien) 5 mg HS PRN PO INSOMNIA; Start 11/08/18 at 05:30 [facility] This patient donato... PRN PRN XX WOUND CARE; Start 11/08/18 at 05:30 Metoprolol Tartrate (Lopressor) 5 mg Q4H IV ; Start 11/08/18 at 09:00 Insulin Aspart (Novolog Insulin Pen) NOVOLOG *MILD* ALGORI... Q4 SC Last administered on 11/09/18 00:48; Admin Dose 1 UNIT; Start 11/08/18 at 09:00 Miscellaneous Information 1 ea NOTE XX ; Start 11/08/18 at 08:00 Glucose (Glutose) 15 gm Q15M PRN PO DECREASED GLUCOSE; Start 11/08/18 at 08:00 Glucose (Glutose) 22.5 gm Q15M PRN PO DECREASED GLUCOSE; Start 11/08/18 at 08:00 Dextrose (D50w Syringe) 25 ml Q15M PRN IV DECREASED GLUCOSE; Start 11/08/18 at 08:00 Dextrose (D50w Syringe) 50 ml Q15M PRN IV DECREASED GLUCOSE; Start 11/08/18 at 08:00 Glucagon (Glucagen) 1 mg Q15M PRN IM DECREASED GLUCOSE; Start 11/08/18 at 08:00 Glucose (Glutose) 15 gm Q15M PRN BUCCAL DECREASED GLUCOSE; Start 11/08/18 at 08:00 IV Flush (NS 10 ml) 10 ml PRN PRN IV IV PROTOCOL; Start 11/08/18 at 18:00 Amiodarone HCl (Cordarone) 200 mg BID PO ; Start 11/09/18 at 21:00 Lisinopril (Zestril) 2.5 mg DAILY GTB ; Start 11/10/18 at 09:00 Sodium Hypochlorite (Dakins Diluted ()) 1 applic BID TP ; Start 11/09/18 at 21:00 IRWIN SKELTON M.D. Nov 09, 2018 21:07
[2018-11-10] VITALS (13 sets, daily range): BP systolic 107–127; BP diastolic 52–69; PULSE 60–79; RESP 18–21
[2018-11-10] MEDS: INSULIN ASPART [NOVOLOG] 3 ML PEN SC SCH ×6 (01:00→20:49)
[2018-11-10] MEDS: METOPROLOL 5 MG INJ IV SCH ×6 (01:00→20:48)
[2018-11-10] MEDS: ALBUTEROL 0.083% (NEB) 2.5 MG/3 ML AMP HHN SCH ×4 (01:24→19:41)
[2018-11-10] MEDS: LANSOPRAZOLE 30 MG CAP GTB SCH ×2 (05:17→17:55)
[2018-11-10] MEDS: IPRATROPIUM (NEB) 0.5 MG/2.5 ML AMP HHN SCH ×3 (09:02→19:41)
[2018-11-10] MEDS: SOD CHLORIDE 0.9% 1,000 ML IV SCH ×2 (09:28→19:39)
[2018-11-10] MEDS: LEVETIRACETAM (100 MG/ML) 5ML CUP GTB SCH ×2 (09:29→20:48)
[2018-11-10] MEDS: LACTOBACILLUS RHAMNOSUS CAP GTB SCH ×2 (09:29→20:47)
[2018-11-10] MEDS: ZINC SULFATE 220 MG CAP GTB SCH (09:29)
[2018-11-10] MEDS: ASCORBIC ACID 500 MG TAB GTB SCH ×2 (09:30→20:47)
[2018-11-10] MEDS: BACLOFEN 10 MG TAB GTB SCH (09:31)
[2018-11-10] MEDS: SERTRALINE 50 MG TAB GTB SCH (09:32)
[2018-11-10] MEDS: LISINOPRIL 5 MG TAB GTB SCH (09:32)
[2018-11-10] MEDS: AMIODARONE 200 MG TAB PO SCH ×2 (09:33→20:47)
[2018-11-10] MEDS: METOPROLOL 25 MG TAB GTB SCH ×2 (09:33→20:48)
[2018-11-10] MEDS: POLYETHYLENE GLYCOL 17 GM PACKET GTB SCH ×2 (09:34→20:48)
[2018-11-10] MEDS: MULTIVITAMINS 30 ML CUP GTB SCH (09:34)
[2018-11-10] MEDS: CYANOCOBALAMIN 500 MCG TAB GTB SCH (09:34)
[2018-11-10] MEDS: ASPIRIN 81 MG TAB GTB SCH ×2 (09:34→20:47)
[2018-11-10] MEDS: CHOLECALCIFEROL 2,000 UNIT CAP GTB SCH (09:34)
[2018-11-10] MEDS: DAKINS 0.0125%(1/40) 473 ML SOLUTION TP SCH ×4 (09:35→20:51)
[2018-11-10] MEDS: clonAZEPAM 0.5 MG TAB GTB SCH ×2 (09:41→20:48)
--- NOTE | 2018-11-10 12:14 | PN ---
Date/Time of Note Date/Time of Note DATE: 11/10/18 TIME: 12:13 Assessment/Plan VTE Prophylaxis Risk score (from Ns)>0 risk: 10 SCD applied (from Ns): Yes Pharmacological prophylaxis: LMWH Lines/Catheters IV Catheter Type (from Nrs): PICC Line Central line still needed: Yes Urinary Cath still in place: Yes Reason Cath still needed: skin wounds contaminated by urine Assessment/Plan Hospital Course Rapid Afib to Flutter; currently SR - admit to ICU - cARDIOLOGY CONSULT- Dr Monson notified VDRF - Pulmonary consult- Dr Ko notified Decub - right hip/sacrum; sp debridment - wound care consult - wound care per plastic sx - DIETARY consult Osteomylitis right humeral head - ID Consult Progressive supranuclear palsy - Diabetes Chronic diastolic CHF -Dysphagia with GT placement - Anemia of chronic disease - Acute metabolic and chronic encephalopathy Result Diagram: 11/10/18 0510 11/10/18 0510 Results 24hrs Laboratory Tests Test 11/09/18 12:25 11/09/18 17:51 11/09/18 21:02 11/10/18 02:02 Bedside Glucose 119 115 132 112 Test 11/10/18 05:00 11/10/18 05:10 11/10/18 05:14 11/10/18 07:58 Blood Gas Specimen Blood arterial Source Arterial Blood 11/10/2018 4:30:25 Date Drawn AM Arterial Blood pH 7.425 (Temp corrected) Arterial Blood 41.3 pCO2 (Temp correct) Arterial Blood pO2 68.3 L (Temp corrected) Arterial Blood 26.5 H HCO3 Arterial Blood 1.9 Base Excess Arterial Blood 93.1 L Oxygen Saturation Alexis Test ACCEPTAB Arterial Blood Gas Right Radial Puncture Site Arterial 0.3 Blood Carboxyhemog lobin Arterial Blood 0.7 Methemoglobin Blood Gas A-a O2 82.6 H Differential Oxyhemoglobin 92.2 L Percent Blood Gas 37.0 Temperature Blood Gas Modality TRACH COLLAR FiO2 28.0 Blood Gas Notified MA Whom Blood Gas Notified 11/10/2018 4:57:59 Time AM White Blood Count 5.7 Red Blood Count 2.74 L Hemoglobin 7.1 L Hematocrit 23.5 L Mean Corpuscular 85.8 Volume Mean Corpuscular 25.9 L Hemoglobin Mean Corpuscular 30.2 L Hemoglobin Concent Red Cell 17.7 H Distribution Width Platelet Count 189 Mean Platelet 11.6 H Volume Immature 0.400 Granulocytes % Neutrophils % 69.4 Lymphocytes % 17.2 Monocytes % 7.4 Eosinophils % 5.1 Basophils % 0.5 Nucleated Red 0.0 Blood Cells % Immature 0.020 Granulocytes # Neutrophils # 3.9 Lymphocytes # 1.0 Monocytes # 0.4 Eosinophils # 0.3 Basophils # 0.0 Nucleated Red 0.0 Blood Cells # Sodium Level 142 Potassium Level 4.4 Chloride Level 111 H Carbon Dioxide 26 Level Anion Gap 5 Blood Urea 13 Nitrogen Creatinine 0.28 L Est Glomerular Filtrat Rate mL/min Glucose Level 122 Lactic Acid Level 0.6 Calcium Level 9.1 Bedside Glucose 127 115 Subjective 24 Hr Interval Summary Free Text/Dictation Patient sedated, no response to voice or touch Exam/Review of Systems Exam Vitals Vital Signs Date Temp Pulse Resp B/P (MAP) Pulse Ox O2 O2 Flow FiO2 Time Delivery Rate 11/10/18 98.4 64 18 107/52 97 11:05 (70) 11/10/18 5.0 09:08 11/10/18 Aerosol 09:06 T Tube 11/10/18 28 01:24 Intake and Output 11/09/18 11/09/18 11/10/18 1515:00 23:00 07:00 IntakeIntake Total 1120 ml 390 ml 580 ml OutputOutput Total 135 ml 175 ml 900 ml BalanceBalance 985 ml 215 ml -320 ml Constitutional: well developed Head: normocephalic, atraumatic Neck: supple Respiratory: diminished breath sounds Cardiovascular: regular rate and rhythm Gastrointestinal: soft, non-tender Extremities: normal pulses Results Results 24hrs Laboratory Tests Test 11/09/18 12:25 11/09/18 17:51 11/09/18 21:02 11/10/18 02:02 Bedside Glucose 119 115 132 112 Test 11/10/18 05:00 11/10/18 05:10 11/10/18 05:14 11/10/18 07:58 Blood Gas Specimen Blood arterial Source Arterial Blood 11/10/2018 4:30:25 Date Drawn AM Arterial Blood pH 7.425 (Temp corrected) Arterial Blood 41.3 pCO2 (Temp correct) Arterial Blood pO2 68.3 L (Temp corrected) Arterial Blood 26.5 H HCO3 Arterial Blood 1.9 Base Excess Arterial Blood 93.1 L Oxygen Saturation Alexis Test ACCEPTAB Arterial Blood Gas Right Radial Puncture Site Arterial 0.3 Blood Carboxyhemog lobin Arterial Blood 0.7 Methemoglobin Blood Gas A-a O2 82.6 H Differential Oxyhemoglobin 92.2 L Percent Blood Gas 37.0 Temperature Blood Gas Modality TRACH COLLAR FiO2 28.0 Blood Gas Notified MA Whom Blood Gas Notified 11/10/2018 4:57:59 Time AM White Blood Count 5.7 Red Blood Count 2.74 L Hemoglobin 7.1 L Hematocrit 23.5 L Mean Corpuscular 85.8 Volume Mean Corpuscular 25.9 L Hemoglobin Mean Corpuscular 30.2 L Hemoglobin Concent Red Cell 17.7 H Distribution Width Platelet Count 189 Mean Platelet 11.6 H Volume Immature 0.400 Granulocytes % Neutrophils % 69.4 Lymphocytes % 17.2 Monocytes % 7.4 Eosinophils % 5.1 Basophils % 0.5 Nucleated Red 0.0 Blood Cells % Immature 0.020 Granulocytes # Neutrophils # 3.9 Lymphocytes # 1.0 Monocytes # 0.4 Eosinophils # 0.3 Basophils # 0.0 Nucleated Red 0.0 Blood Cells # Sodium Level 142 Potassium Level 4.4 Chloride Level 111 H Carbon Dioxide 26 Level Anion Gap 5 Blood Urea 13 Nitrogen Creatinine 0.28 L Est Glomerular Filtrat Rate mL/min Glucose Level 122 Lactic Acid Level 0.6 Calcium Level 9.1 Bedside Glucose 127 115 Medications Medication Current Medications Sodium Chloride 1,000 ml @ 100 mls/hr Q10H IV Last administered on 11/10/18 09:28; Admin Dose 100 MLS/HR; Start 11/08/18 at 05:30 Acetaminophen (Tylenol Liquid) 650 mg Q6H PRN GTB PAIN AND/OR INFLAMMATION; Start 11/08/18 at 22:00 Albuterol (Proventil 0.083% (Neb)) 2.5 mg Q6H RESP THERAPY HHN Last administered on 11/10/18 09:02; Admin Dose 2.5 MG; Start 11/08/18 at 08:00 Ascorbic Acid (Vitamin C) 500 mg BID GTB Last administered on 11/10/18 09:30; Admin Dose 500 MG; Start 11/08/18 at 09:00 Aspirin (Aspirin) 81 mg BID GTB Last administered on 11/10/18 09:34; Admin Dose 81 MG; Start 11/08/18 at 09:00 Baclofen (Lioresal) 20 mg DAILY GTB Last administered on 11/10/18 09:31; Admin Dose 20 MG; Start 11/08/18 at 09:00 Cholecalciferol (Vitamin D) 2,000 unit DAILY GTB Last administered on 11/10/18 09:34; Admin Dose 2,000 UNIT; Start 11/08/18 at 09:00 Clonazepam (Klonopin) 0.5 mg BID GTB Last administered on 11/10/18 09:41; Admin Dose 0.5 MG; Start 11/08/18 at 09:00 Cyanocobalamin (Vitamin B12) 500 mcg DAILY GTB Last administered on 11/10/18 09:34; Admin Dose 500 MCG; Start 11/08/18 at 09:00 Acetaminophen/ Hydrocodone Bitart ([place] (5/325)) 1 tab Q4H PRN GTB MODERATE PAIN LEVEL 4-6; Start 11/08/18 at 04:30 Miscellaneous Information 1 ea NOTE XX ; Start 11/08/18 at 05:00 Ipratropium [place] (Atrovent 0.02% (Neb)) 0.5 mg Q6HWA RESP THERAPY HHN Last administered on 11/10/18 09:02; Admin Dose 0.5 MG; Start 11/08/18 at 08:00 Lactobacillus Acidophilus/ Rhamnosus (Culturelle) 1 cap BID GTB Last administered on 11/10/18 09:29; Admin Dose 1 CAP; Start 11/08/18 at 09:00 Lansoprazole (Prevacid) 30 mg BID@,18 GTB Last administered on 11/10/18 05:17; Admin Dose 30 MG; Start 11/08/18 at 06:00 Levetiracetam (Keppra Liquid) 500 mg BID GTB Last administered on 11/10/18 09:29; Admin Dose 500 MG; Start 11/08/18 at 09:00 Metoprolol Tartrate (Lopressor) 25 mg BID GTB Last administered on 11/10/18 09:33; Admin Dose 25 MG; Start 11/08/18 at 09:00 Multivitamins (Multivitamin) 30 ml DAILY GTB Last administered on 11/10/18 09:34; Admin Dose 30 ML; Start 11/08/18 at 09:00 Ondansetron HCl (Zofran Inj) 4 mg Q6H PRN IV NAUSEA AND/OR VOMITING; Start 11/08/18 at 05:30 Polyethylene Glycol (Miralax) 17 gm BID GTB Last administered on 11/10/18 09:34; Admin Dose 17 GM; Start 11/08/18 at 09:00 Sertraline HCl (Zoloft) 50 mg DAILY GTB Last administered on 11/10/18 09:32; Admin Dose 50 MG; Start 11/08/18 at 09:00 Sodium Hypochlorite (Dakins Diluted ()) 1 applic BID TP Last administered on 11/10/18 09:35; Admin Dose 1 APPLIC; Start 11/08/18 at 09:00 Zinc Sulfate (Zinc Sulfate) 220 mg DAILY GTB Last administered on 11/10/18 09:29; Admin Dose 220 MG; Start 11/08/18 at 09:00 Zolpidem Tartrate (Ambien) 5 mg HS PRN PO INSOMNIA; Start 11/08/18 at 05:30 [facility] This patient donato... PRN PRN XX WOUND CARE; Start 11/08/18 at 05:30 Metoprolol Tartrate (Lopressor) 5 mg Q4H IV ; Start 11/08/18 at 09:00 Insulin Aspart (Novolog Insulin Pen) NOVOLOG *MILD* ALGORI... Q4 SC Last administered on 11/09/18 00:48; Admin Dose 1 UNIT; Start 11/08/18 at 09:00 Miscellaneous Information 1 ea NOTE XX ; Start 11/08/18 at 08:00 Glucose (Glutose) 15 gm Q15M PRN PO DECREASED GLUCOSE; Start 11/08/18 at 08:00 Glucose (Glutose) 22.5 gm Q15M PRN PO DECREASED GLUCOSE; Start 11/08/18 at 08:00 Dextrose (D50w Syringe) 25 ml Q15M PRN IV DECREASED GLUCOSE; Start 11/08/18 at 08:00 Dextrose (D50w Syringe) 50 ml Q15M PRN IV DECREASED GLUCOSE; Start 11/08/18 at 08:00 Glucagon (Glucagen) 1 mg Q15M PRN IM DECREASED GLUCOSE; Start 11/08/18 at 08:00 Glucose (Glutose) 15 gm Q15M PRN BUCCAL DECREASED GLUCOSE; Start 11/08/18 at 08:00 IV Flush (NS 10 ml) 10 ml PRN PRN IV IV PROTOCOL; Start 11/08/18 at 18:00 Amiodarone HCl (Cordarone) 200 mg BID PO Last administered on 11/10/18at 09:33; Admin Dose 200 MG; Start 11/09/18 at 21:00 Lisinopril (Zestril) 2.5 mg DAILY GTB Last administered on 11/10/18 09:32; Admin Dose 2.5 MG; Start 11/10/18 at 09:00 Sodium Hypochlorite (Dakins Diluted ()) 1 applic BID TP Last administered on 11/10/18at 09:36; Admin Dose 1 APPLIC; Start 11/09/18 at 21:00 KALEY NO Nov 10, 2018 12:14
--- NOTE | 2018-11-10 13:30 | CONS ---
Consult Date/Type/Reason Admit Date/Time Nov 08, 2018 at 03:55 Initial Consult Date 11/08/18 Type of Consultation: Pulm/CCM Requesting Provider: NADEEN CHO Date/Time of Note DATE: 11/10/18 TIME: 13:30 Subjective No events. On t-piece. Not able to follow commands. Objective Vitals Vital Signs Date Temp Pulse Resp B/P (MAP) Pulse Ox O2 O2 Flow FiO2 Time Delivery Rate 11/10/18 98.4 64 18 107/52 97 11:05 (70) 11/10/18 5.0 09:08 11/10/18 Aerosol 09:06 T Tube 11/10/18 28 01:24 Intake and Output 11/09/18 11/09/18 11/10/18 1515:00 23:00 07:00 IntakeIntake Total 1120 ml 390 ml 580 ml OutputOutput Total 135 ml 175 ml 900 ml BalanceBalance 985 ml 215 ml -320 ml Exam HEENT: Neck supple; no JVD; no LAD; + trach CVS: Irreg irreg, S1 and S2 CHEST: Coarse BS b/l ABD: Soft, NT, + BS EXT: No c/c; + decub wounds stage III/IV Results/Medications Result Diagram: 11/10/18 0510 11/10/18 0510 Results 24 hrs Laboratory Tests Test 11/09/18 17:51 11/09/18 21:02 11/10/18 02:02 11/10/18 05:00 Bedside Glucose 115 132 112 Blood Gas Specimen Blood arterial Source Arterial Blood 11/10/2018 4:30:25 Date Drawn AM Arterial Blood pH 7.425 (Temp corrected) Arterial Blood 41.3 pCO2 (Temp correct) Arterial Blood pO2 68.3 L (Temp corrected) Arterial Blood 26.5 H HCO3 Arterial Blood 1.9 Base Excess Arterial Blood 93.1 L Oxygen Saturation Alexis Test ACCEPTAB Arterial Blood Gas Right Radial Puncture Site Arterial 0.3 Blood Carboxyhemog lobin Arterial Blood 0.7 Methemoglobin Blood Gas A-a O2 82.6 H Differential Oxyhemoglobin 92.2 L Percent Blood Gas 37.0 Temperature Blood Gas Modality TRACH COLLAR FiO2 28.0 Blood Gas Notified MA Whom Blood Gas Notified 11/10/2018 4:57:59 Time AM Test 11/10/18 05:10 11/10/18 05:14 11/10/18 07:58 White Blood Count 5.7 Red Blood Count 2.74 L Hemoglobin 7.1 L Hematocrit 23.5 L Mean Corpuscular 85.8 Volume Mean Corpuscular 25.9 L Hemoglobin Mean Corpuscular 30.2 L Hemoglobin Concent Red Cell 17.7 H Distribution Width Platelet Count 189 Mean Platelet 11.6 H Volume Immature 0.400 Granulocytes % Neutrophils % 69.4 Lymphocytes % 17.2 Monocytes % 7.4 Eosinophils % 5.1 Basophils % 0.5 Nucleated Red 0.0 Blood Cells % Immature 0.020 Granulocytes # Neutrophils # 3.9 Lymphocytes # 1.0 Monocytes # 0.4 Eosinophils # 0.3 Basophils # 0.0 Nucleated Red 0.0 Blood Cells # Sodium Level 142 Potassium Level 4.4 Chloride Level 111 H Carbon Dioxide 26 Level Anion Gap 5 Blood Urea 13 Nitrogen Creatinine 0.28 L Est Glomerular Filtrat Rate mL/min Glucose Level 122 Lactic Acid Level 0.6 Calcium Level 9.1 Bedside Glucose 127 115 Home Meds Reported Medications [Tramadol] No Conflict Check 06/26/13 [Oxybutynin] No Conflict Check 02/18/13 [Furosemide] No Conflict Check 02/18/13 [Atorvastatin] No Conflict Check 02/18/13 [Lorazepam] No Conflict Check 02/18/13 Estrogens Conjugated* (Premarin*) 0.45 Mg Tablet, 1.5 MG PO DAILY 02/18/13 Medications Current Medications Sodium Chloride 1,000 ml @ 100 mls/hr Q10H IV Last administered on 11/10/18at 09:28; Admin Dose 100 MLS/HR; Start 11/08/18 at 05:30 Acetaminophen (Tylenol Liquid) 650 mg Q6H PRN GTB PAIN AND/OR INFLAMMATION; Start 11/08/18 at 22:00 Albuterol (Proventil 0.083% (Neb)) 2.5 mg Q6H RESP THERAPY HHN Last admi nistered on 11/10/18at 09:02; Admin Dose 2.5 MG; Start 11/08/18 at 08:00 Ascorbic Acid (Vitamin C) 500 mg BID GTB Last administered on 11/10/18at 09:30; Admin Dose 500 MG; Start 11/08/18 at 09:00 Aspirin (Aspirin) 81 mg BID GTB Last administered on 11/10/18 09:34; Admin Dose 81 MG; Start 11/08/18 at 09:00 Baclofen (Lioresal) 20 mg DAILY GTB Last administered on 11/10/18 09:31; Admin Dose 20 MG; Start 11/08/18 at 09:00 Cholecalciferol (Vitamin D) 2,000 unit DAILY GTB Last administered on 11/10/18 09:34; Admin Dose 2,000 UNIT; Start 11/08/18 at 09:00 Clonazepam (Klonopin) 0.5 mg BID GTB Last administered on 11/10/18 09:41; Admin Dose 0.5 MG; Start 11/08/18 at 09:00 Cyanocobalamin (Vitamin B12) 500 mcg DAILY GTB Last administered on 11/10/18 09:34; Admin Dose 500 MCG; Start 11/08/18 at 09:00 Acetaminophen/ Hydrocodone Bitart ([place] (5/325)) 1 tab Q4H PRN GTB MODERATE PAIN LEVEL 4-6; Start 11/08/18 at 04:30 Miscellaneous Information 1 ea NOTE XX ; Start 11/08/18 at 05:00 Ipratropium [place] (Atrovent 0.02% (Neb)) 0.5 mg Q6HWA RESP THERAPY HHN Last administered on 11/10/18 09:02; Admin Dose 0.5 MG; Start 11/08/18 at 08:00 Lactobacillus Acidophilus/ Rhamnosus (Culturelle) 1 cap BID GTB Last administered on 11/10/18 09:29; Admin Dose 1 CAP; Start 11/08/18 at 09:00 Lansoprazole (Prevacid) 30 mg BID@06,18 GTB Last administered on 11/10/18 05:17; Admin Dose 30 MG; Start 11/08/18 at 06:00 Levetiracetam (Keppra Liquid) 500 mg BID GTB Last administered on 11/10/18 09:29; Admin Dose 500 MG; Start 11/08/18 at 09:00 Metoprolol Tartrate (Lopressor) 25 mg BID GTB Last administered on 11/10/18 09 :33; Admin Dose 25 MG; Start 11/08/18 at 09:00 Multivitamins (Multivitamin) 30 ml DAILY GTB Last administered on 11/10/18 09:34; Admin Dose 30 ML; Start 11/08/18 at 09:00 Ondansetron HCl (Zofran Inj) 4 mg Q6H PRN IV NAUSEA AND/OR VOMITING; Start 11/08/18 at 05:30 Polyethylene Glycol (Miralax) 17 gm BID GTB Last administered on 11/10/18 09:34; Admin Dose 17 GM; Start 11/08/18 at 09:00 Sertraline HCl (Zoloft) 50 mg DAILY GTB Last administered on 11/10/18 09:32; Admin Dose 50 MG; Start 11/08/18 at 09:00 Sodium Hypochlorite (Dakins Diluted ()) 1 applic BID TP Last administered on 11/10/18 09:35; Admin Dose 1 APPLIC; Start 11/08/18 at 09:00 Zinc Sulfate (Zinc Sulfate) 220 mg DAILY GTB Last administered on 11/10/18 09:29; Admin Dose 220 MG; Start 11/08/18 at 09:00 Zolpidem Tartrate (Ambien) 5 mg HS PRN PO INSOMNIA; Start 11/08/18 at 05:30 Miscellaneous Information (Pending [facility] Order For Wound Care) This patient donato... PRN PRN XX WOUND CARE; Start 11/08/18 at 05:30 Metoprolol Tartrate (Lopressor) 5 mg Q4H IV ; Start 11/08/18 at 09:00 Insulin Aspart (Novolog Insulin Pen) NOVOLOG *MILD* ALGORI... Q4 SC Last administered on 11/09/18at 00:48; Admin Dose 1 UNIT; Start 11/08/18 at 09:00 Miscellaneous Information 1 ea NOTE XX ; Start 11/08/18 at 08:00 Glucose (Glutose) 15 gm Q15M PRN PO DECREASED GLUCOSE; Start 11/08/18 at 08:00 Glucose (Glutose) 22.5 gm Q15M PRN PO DECREASED GLUCOSE; Start 11/08/18 at 08:00 Dextrose (D50w Syringe) 25 ml Q15M PRN IV DECREASED GLUCOSE; Start 11/08/18 at 08:00 Dextrose (D50w Syringe) 50 ml Q15M PRN IV DECREASED GLUCOSE; Start 11/08/18 at 08:00 Glucagon (Glucagen) 1 mg Q15M PRN IM DECREASED GLUCOSE; Start 11/08/18 at 08:00 Glucose (Glutose) 15 gm Q15M PRN BUCCAL DECREASED GLUCOSE; Start 11/08/18 at 08:00 IV Flush (NS 10 ml) 10 ml PRN PRN IV IV PROTOCOL; Start 11/08/18 at 18:00 Amiodarone HCl (Cordarone) 200 mg BID PO Last administered on 11/10/18at 09:33; Admin Dose 200 MG; Start 11/09/18 at 21:00 Lisinopril (Zestril) 2.5 mg DAILY GTB Last administered on 11/10/18at 09:32; Admin Dose 2.5 MG; Start 11/10/18 at 09:00 Sodium Hypochlorite (Dakins Diluted (40)) 1 applic BID TP Last administered on 11/10/18at 09:36; Admin Dose 1 APPLIC; Start 11/09/18 at 21:00 Ciprofloxacin/ Dextrose 200 ml @ 200 mls/hr Q12 IVPB ; Start 11/10/18 at 21:00 Assessment/Plan Assessment/Plan (Daily) IMP: 1. Severe Sepsis--2/2 wound infection 2. Afib with RVR 3. 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 Chronic encephalopathy 5. Seizure D/O 6. Dementia 7. Decubitus ulcers RECS: 1. Abx per ID 2. BD's/CPT/suctioning 3. Monitor on t-piece 4. Follow cultures 5. Wound care 6. Rate control 7. TF/Free H20 FAWAD URIBE MD Nov 10, 2018 13:30
--- NOTE | 2018-11-10 13:54 | CONS ---
Assessment/Plan Assessment/Plan Hospital Course (Demo Recall) IMPRESSION: 1. Paroxysmal atrial fibrillation flutter with rapid ventricular response, currently in sinus rhythm but as of this morning was in rapid atrial fibrillation and flutter. 2. Hypotension, borderline. 3. Congestive heart failure, systolic, acute on chronic. 4. Cardiomyopathy with mildly depressed left ventricular ejection fraction, last approximately 40% to 45% by echo 10/2018. 5. Encephalopathy, chronic. 6. Progressive supranuclear palsy. 7. Anemia. 8. Diabetes mellitus. Recc: -ICU -Continue po amio now in attempt to maintain SR -BB/ACEI as tolerated only -Follow volume status closely -pulmonary toliet Consultation Date/Type/Reason Admit Date/Time Nov 08, 2018 at 03:55 Initial Consult Date 11/08/18 Type of Consult Cardiology Reason for Consultation PAF Requesting Provider: NADEEN CHO Date/Time of Note DATE: 11/10/18 TIME: 13:52 Exam/Review of Systems Vital Signs Vitals Vital Signs Date Temp Pulse Resp B/P (MAP) Pulse Ox O2 O2 Flow FiO2 Time Delivery Rate 11/10/18 100 5.0 13:49 11/10/18 63 20 Aerosol 13:48 T Tube 11/10/18 98.4 107/52 11:05 (70) 11/10/18 28 01:24 Intake and Output 11/09/18 11/09/18 11/10/18 1515:00 23:00 07:00 IntakeIntake Total 1120 ml 390 ml 580 ml OutputOutput Total 135 ml 175 ml 900 ml BalanceBalance 985 ml 215 ml -320 ml Exam Exam Review of Systems: CONSTITUTIONAL: No fevers, chills. PULMONARY: trached CARDIOVASCULAR: No chest pain/palpitations GASTROINTESTINAL: No nausea/vomiting. GENITOURINARY: No hematuria/dysuria. MUSCULOSKELETAL: No myagias/arthalgias. PSYCHIATRIC: The patient denies depression. NEUROLOGIC:encephalopathic Constitutional: other (encephalopathic) Psych: no complaints Head: normocephalic ENMT: mucosa pink and moist Neck: supple, jvd (9 cm water) Respiratory: diminished breath sounds (at bases/B) Cardiovascular: regular rate and rhythm Gastrointestinal: soft, non-tender Musculoskeletal: muscle weakness (generalized) Extremities: edema (none) Neurological: other (encephaloathic, postured) Labs Result Diagram: 4/7/19 0510 11/10/18 0510 Results 24hrs Laboratory Tests Test 11/09/18 17:51 11/09/18 21:02 11/10/18 02:02 11/10/18 05:00 Bedside Glucose 115 132 112 Blood Gas Specimen Blood arterial Source Arterial Blood 11/10/2018 4:30:25 Date Drawn AM Arterial Blood pH 7.425 (Temp corrected) Arterial Blood 41.3 pCO2 (Temp correct) Arterial Blood pO2 68.3 L (Temp corrected) Arterial Blood 26.5 H HCO3 Arterial Blood 1.9 Base Excess Arterial Blood 93.1 L Oxygen Saturation Alexis Test ACCEPTAB Arterial Blood Gas Right Radial Puncture Site Arterial 0.3 Blood Carboxyhemog lobin Arterial Blood 0.7 Methemoglobin Blood Gas A-a O2 82.6 H Differential Oxyhemoglobin 92.2 L Percent Blood Gas 37.0 Temperature Blood Gas Modality TRACH COLLAR FiO2 28.0 Blood Gas Notified MA Whom Blood Gas Notified 11/10/2018 4:57:59 Time AM Test 11/10/18 05:10 11/10/18 05:14 11/10/18 07:58 11/10/18 13:46 White Blood Count 5.7 Red Blood Count 2.74 L Hemoglobin 7.1 L Hematocrit 23.5 L Mean Corpuscular 85.8 Volume Mean Corpuscular 25.9 L Hemoglobin Mean Corpuscular 30.2 L Hemoglobin Concent Red Cell 17.7 H Distribution Width Platelet Count 189 Mean Platelet 11.6 H Volume Immature 0.400 Granulocytes % Neutrophils % 69.4 Lymphocytes % 17.2 Monocytes % 7.4 Eosinophils % 5.1 Basophils % 0.5 Nucleated Red 0.0 Blood Cells % Immature 0.020 Granulocytes # Neutrophils # 3.9 Lymphocytes # 1.0 Monocytes # 0.4 Eosinophils # 0.3 Basophils # 0.0 Nucleated Red 0.0 Blood Cells # Sodium Level 142 Potassium Level 4.4 Chloride Level 111 H Carbon Dioxide 26 Level Anion Gap 5 Blood Urea 13 Nitrogen Creatinine 0.28 L Est Glomerular Filtrat Rate mL/min Glucose Level 122 Lactic Acid Level 0.6 Calcium Level 9.1 Bedside Glucose 127 115 102 Medications Medications Current Medications Sodium Chloride 1,000 ml @ 100 mls/hr Q10H IV Last administered on 11/10/18at 09:28; Admin Dose 100 MLS/HR; Start 4/5/19 at 05:30 Acetaminophen (Tylenol Liquid) 650 mg Q6H PRN GTB PAIN AND/OR INFLAMMATION; Start 11/08/18 at 22:00 Albuterol (Proventil 0.083% (Neb)) 2.5 mg Q6H RESP THERAPY HHN Last administered on 11/10/18 13:41; Admin Dose 2.5 MG; Start 11/08/18 at 08:00 Ascorbic Acid (Vitamin C) 500 mg BID GTB Last administered on 11/10/18 09:30; Admin Dose 500 MG; Start 11/08/18 at 09:00 Aspirin (Aspirin) 81 mg BID GTB Last administered on 11/10/18 09:34; Admin Dose 81 MG; Start 11/08/18 at 09:00 Baclofen (Lioresal) 20 mg DAILY GTB Last administered on 11/10/18 09:31; Admin Dose 20 MG; Start 11/08/18 at 09:00 Cholecalciferol (Vitamin D) 2,000 unit DAILY GTB Last administered on 11/10/18 09:34; Admin Dose 2,000 UNIT; Start 11/08/18 at 09:00 Clonazepam (Klonopin) 0.5 mg BID GTB Last administered on 11/10/18 09:41; Admin Dose 0.5 MG; Start 11/08/18 at 09:00 Cyanocobalamin (Vitamin B12) 500 mcg DAILY GTB Last administered on 11/10/18 09:34; Admin Dose 500 MCG; Start 11/08/18 at 09:00 Acetaminophen/ Hydrocodone Bitart ([place] (5/325)) 1 tab Q4H PRN GTB MODERATE PAIN LEVEL 4-6; Start 11/08/18 at 04:30 Miscellaneous Information 1 ea NOTE XX ; Start 11/08/18 at 05:00 Ipratropium [place] (Atrovent 0.02% (Neb)) 0.5 mg Q6HWA RESP THERAPY HHN Last administered on 11/10/18 13:40; Admin Dose 0.5 MG; Start 11/08/18 at 08:00 Lactobacillus Acidophilus/ Rhamnosus (Culturelle) 1 cap BID GTB Last administered on 11/10/18 09:29; Admin Dose 1 CAP; Start 11/08/18 at 09:00 Lansoprazole (Prevacid) 30 mg BID@,18 GTB Last administered on 11/10/18 05:17; Admin Dose 30 MG; Start 11/08/18 at 06:00 Levetiracetam (Keppra Liquid) 500 mg BID GTB Last administered on 11/10/18 09:29; Admin Dose 500 MG; Start 11/08/18 at 09:00 Metoprolol Tartrate (Lopressor) 25 mg BID GTB Last administered on 11/10/18 09:33; Admin Dose 25 MG; Start 11/08/18 at 09:00 Multivitamins (Multivitamin) 30 ml DAILY GTB Last administered on 11/10/18 09:34; Admin Dose 30 ML; Start 11/08/18 at 09:00 Ondansetron HCl (Zofran Inj) 4 mg Q6H PRN IV NAUSEA AND/OR VOMITING; Start 11/08/18 at 05:30 Polyethylene Glycol (Miralax) 17 gm BID GTB Last administered on 11/10/18 09:34; Admin Dose 17 GM; Start 11/08/18 at 09:00 Sertraline HCl (Zoloft) 50 mg DAILY GTB Last administered on 11/10/18 09:32; Admin Dose 50 MG; Start 11/08/18 at 09:00 Sodium Hypochlorite (Dakins Diluted (1/40)) 1 applic BID TP Last administered on 11/10/18 09:35; Admin Dose 1 APPLIC; Start 11/08/18 at 09:00 Zinc Sulfate (Zinc Sulfate) 220 mg DAILY GTB Last administered on 11/10/18 09:29; Admin Dose 220 MG; Start 11/08/18 at 09:00 Zolpidem Tartrate (Ambien) 5 mg HS PRN PO INSOMNIA; Start 11/08/18 at 05:30 Miscellaneous Information (Pending [facility] Order For Wound Care) This patient donato... PRN PRN XX WOUND CARE; Start 11/08/18 at 05:30 Metoprolol Tartrate (Lopressor) 5 mg Q4H IV ; Start 11/08/18 at 09:00 Insulin Aspart (Novolog Insulin Pen) NOVOLOG *MILD* ALGORI... Q4 SC Last administered on 4/6/19at 00:48; Admin Dose 1 UNIT; Start 11/08/18 at 09:00 Miscellaneous Information 1 ea NOTE XX ; Start 11/08/18 at 08:00 Glucose (Glutose) 15 gm Q15M PRN PO DECREASED GLUCOSE; Start 11/08/18 at 08:00 Glucose (Glutose) 22.5 gm Q15M PRN PO DECREASED GLUCOSE; Start 11/08/18 at 08:00 Dextrose (D50w Syringe) 25 ml Q15M PRN IV DECREASED GLUCOSE; Start 11/08/18 at 08:00 Dextrose (D50w Syringe) 50 ml Q15M PRN IV DECREASED GLUCOSE; Start 11/08/18 at 08:00 Glucagon (Glucagen) 1 mg Q15M PRN IM DECREASED GLUCOSE; Start 11/08/18 at 08:00 Glucose (Glutose) 15 gm Q15M PRN BUCCAL DECREASED GLUCOSE; Start 11/08/18 at 08:00 IV Flush (NS 10 ml) 10 ml PRN PRN IV IV PROTOCOL; Start 11/08/18 at 18:00 Amiodarone HCl (Cordarone) 200 mg BID PO Last administered on 11/10/18at 09:33; Admin Dose 200 MG; Start 11/09/18 at 21:00 Lisinopril (Zestril) 2.5 mg DAILY GTB Last administered on 11/10/18at 09:32; Admin Dose 2.5 MG; Start 11/10/18 at 09:00 Sodium Hypochlorite (Dakins Diluted ()) 1 applic BID TP Last administered on 11/10/18at 09:36; Admin Dose 1 APPLIC; Start 11/09/18 at 21:00 Ciprofloxacin/ Dextrose 200 ml @ 200 mls/hr Q12 IVPB ; Start 11/10/18 at 21:00 MAITE VAZQUEZ Nov 10, 2018 13:54
--- NOTE | 2018-11-10 14:29 | PN ---
Date/Time of Note Date/Time of Note DATE: 11/10/18 TIME: 14:24 Assessment/Plan Lines/Catheters IV Catheter Type (from Nrs): PICC Line Ramires in Place (from Nrs): Yes Assessment/Plan Chief Complaint/Hosp Course 1. sacral and right hip wound: recently completed abx tx for osteo; S/p [place] resection arthroplasty and flap reconstruction 09/23/2018, currently w exposed bone -debridement prn -local care w [facility]> wound care already ordered -frequent turning and off-loading -low air loss mattress -vitamin c -short term zinc -optimize nutrition -CT imaging> ending -Ortho consult 2. Paroxysmal Atiral fibrillation with RVR: Currently in sinus rhythm -per cards -rate control 3. Respiratory faillure: s/p trach -pulm toilet 4. Supranuclear palsy -injury prevention/supportive 5. DM: -glucose mgt 6. Hypochromic normocytic anemia: -monitor and tx as needed Thank you. Patient seen and examined in collaboration with Dr. Gilmar Wiggins. Subjective 24 Hr Interval Summary Appears comfortable. No fevers, labored breathing, congested cough, vomiting, diarrhea, seizure, rash. Currently in sinus rhythm. Exam/Review of Systems Vital Signs Vitals Vital Signs Date Temp Pulse Resp B/P (MAP) Pulse Ox O2 O2 Flow FiO2 Time Delivery Rate 11/10/18 100 5.0 13:49 11/10/18 63 20 Aerosol 13:48 T Tube 11/10/18 98.4 107/52 11:05 (70) 11/10/18 28 01:24 Intake and Output 11/09/18 11/09/18 11/10/18 1515:00 23:00 07:00 IntakeIntake Total 1120 ml 390 ml 580 ml OutputOutput Total 135 ml 175 ml 900 ml BalanceBalance 985 ml 215 ml -320 ml Exam Free Text/Dictation Constitutional: alert, other; No distress Head: normocephalic, atraumatic Eyes: nl conjunctiva, nl lids, nl sclera ENMT: nl external ears & nose, nl lips & teeth, mucosa pink and moist Neck: non-tender Respiratory: normal air movement; No congested cough Cardiovascular: regular rate and rhythm, nl pulses; No edema Gastrointestinal: soft, non-tender; No distended Genitourinary - Female: nl adnexae, nl external genitalia Musculoskeletal: other; No muscle tone Extremities: normal pulses; No edema, No tenderness Neurological: No nl mental status, No nl speech, No nl strength Skin: other; sacral (minimal odor, moderate drainage, packed); right hip: (Exposed bone, minimal slough, minimal odor, moderate drainage) No rash or lesions, No diaphoresis Results Result Diagram: 11/10/18 0510 11/10/18 0510 JOSE ANTONIO MONTGOMERY NP Nov 10, 2018 14:29
--- NOTE | 2018-11-10 17:00 | CONS ---
Assessment/Plan Assessment/Plan Hospital Course (Demo Recall) # infection of wound, OM of R hip - colonization of the wound of R hip by pseudomonas (wound culture on 10/31/2018) - s/p repeat debridement at [facility] on 11/03/[address]. [address] Pierson, the wound appeared clean during the I&D (my conversation with him on 11/06/2018) - H/o stage sacral decubitus ulcer extending to bilateral buttocks. She reportedly had total hip dislocation and exposed femoral head. CT pelvis showed e/o OM. Pt complete IV vancomycin (09/17/2018-10/29/2018) for sacral OM associated with E. faecalis - H/o sharp excisional debridement down to and including bone of the sacrum on 08/22/2018 and 09/19/2018 - H/o excision of R hip ulcer, girdlestone resection arthroplasty and flap reconstruction 09/23/2018. The surgical pathology showed osteomyelitis of R hip bone, soft tissue cellulitis, and bony margin of excision was free of the disease - XR of R hip on 11/09/2009 showed the remaining R femoral shaft in transverse orientation and with lateral deviation - h/o removal of devitalized/necrotic tissue by Dr. Pierson on 10/07/2018 # sepsis, endovascular infection, respiratory - colonization of the airway by pseudomonas - h/o sepsis due to bacteremia and pneumonia - h/o bacteremia: blood cultures grew enterococcus faecalis on 09/17/2018 secondary to R hip wound infection as its wound culture on 09/16/2018 grew E. faecalis as well - H/o recurrent acute on chronic hypoxemic respiratory failure secondary to secretion retention, mucous plugging, major left lung atelectasis, severe shunting - h/o probable aspiration pneumonia. - h/o pneumonia due to pseudomonas on 09/30/2018. s/p Levaquin (10/03/18- 10/07/2018), Meropenem (restart 09/30/2018-10/03/18, 10/12/18 - 10/19/2018) and empiric Amikacin (09/30/18-10/03/18) - H/o intubation on 09/30/2018 - H/o tracheostomy on 10/04/2018 - h/o pseudomonas in urine culture on 09/17/2018 with mild pyuria; treated with Cefepime (09/20/2018-09/25/2018) # renal/ - H/o moderate L hydronephrosis per renal US - funguria, recurrent # heme/neuro - H/o acute on chronic anemia requiring PRBC - Metabolic encephalopathy - Supranuclear palsy # endo, cardiac - Diabetes Mellitus - A fib with RVR - Chronic diastolic HF (EF 40-45% with grade 1 DD per 2D Echo 10/24/2018) - H/o hypertension # allergy - Penicillin allergy (throat swelling) but Pt tolerated cefepime and ceftazidime - Resulted: [id number] <31 recommendations: - Will monitor Pt off systemic antibiotic - according to Dr. Pierson who performed the wound debridement, Pt needs wound care until granulation tissue builds and infection is cleared. Then he would decide if Pt should get repeat closure or not - wound care by Dr. Jesus Wiggins - I recommend orthopedic consult because the remaining R femoral shaft was in transverse orientation and with lateral deviation on XR - management d/w Dr. Pierson and Dr. Mac Wiggins Consultation Date/Type/Reason Admit Date/Time Nov 08, 2018 at 03:55 Initial Consult Date 11/09/18 Type of Consult ID Requesting Provider: NADEEN CHO Date/Time of Note DATE: 11/10/18 TIME: 16:48 24 HR Interval Summary Subjective hx not possible: pt non-verbal Exam/Review of Systems Exam Vitals Vital Signs Date Temp Pulse Resp B/P (MAP) Pulse Ox O2 O2 Flow FiO2 Time Delivery Rate 11/10/18 72 16:01 11/10/18 98.2 19 119/69 96 15:17 (86) 11/10/18 5.0 13:49 11/10/18 Aerosol 13:48 T Tube 11/10/18 28 01:24 Intake and Output 11/09/18 11/09/18 11/10/18 1515:00 23:00 07:00 IntakeIntake Total 1120 ml 390 ml 580 ml OutputOutput Total 135 ml 175 ml 900 ml BalanceBalance 985 ml 215 ml -320 ml Constitutional: non-verbal, frail Psych: confusion Head: normocephalic, atraumatic Eyes: nl conjunctiva, nl lids, nl sclera ENMT: nl external ears & nose, nl nasal mucosa & septum Neck: other (trach) Respiratory: diminished breath sounds Cardiovascular: regular rate and rhythm, nl pulses Gastrointestinal: soft, non-tender, other (GT); No distended Genitourinary - Female: other (FC) Musculoskeletal: other (contractured, exposed R femoral shaft and bone marrow after girdlestone amputation) Extremities: No edema Neurological: unresponsive Skin: rash or lesions (the skin surrounding the wound appears clean, normal color and non-indurated) Results Result Diagram: 11/10/18 0510 11/10/18 0510 Results 24hrs Laboratory Tests Test 11/09/18 17:51 11/09/18 21:02 11/10/18 02:02 11/10/18 05:00 Bedside Glucose 115 132 112 Blood Gas Specimen Blood arterial Source Arterial Blood 11/10/2018 4:30:25 Date Drawn AM Arterial Blood pH 7.425 (Temp corrected) Arterial Blood 41.3 pCO2 (Temp correct) Arterial Blood pO2 68.3 L (Temp corrected) Arterial Blood 26.5 H HCO3 Arterial Blood 1.9 Base Excess Arterial Blood 93.1 L Oxygen Saturation Alexis Test ACCEPTAB Arterial Blood Gas Right Radial Puncture Site Arterial 0.3 Blood Carboxyhemog lobin Arterial Blood 0.7 Methemoglobin Blood Gas A-a O2 82.6 H Differential Oxyhemoglobin 92.2 L Percent Blood Gas 37.0 Temperature Blood Gas Modality TRACH COLLAR FiO2 28.0 Blood Gas Notified MA Whom Blood Gas Notified 11/10/2018 4:57:59 Time AM Test 11/10/18 05:10 11/10/18 05:14 11/10/18 07:58 11/10/18 13:46 White Blood Count 5.7 Red Blood Count 2.74 L Hemoglobin 7.1 L Hematocrit 23.5 L Mean Corpuscular 85.8 Volume Mean Corpuscular 25.9 L Hemoglobin Mean Corpuscular 30.2 L Hemoglobin Concent Red Cell 17.7 H Distribution Width Platelet Count 189 Mean Platelet 11.6 H Volume Immature 0.400 Granulocytes % Neutrophils % 69.4 Lymphocytes % 17.2 Monocytes % 7.4 Eosinophils % 5.1 Basophils % 0.5 Nucleated Red 0.0 Blood Cells % Immature 0.020 Granulocytes # Neutrophils # 3.9 Lymphocytes # 1.0 Monocytes # 0.4 Eosinophils # 0.3 Basophils # 0.0 Nucleated Red 0.0 Blood Cells # Sodium Level 142 Potassium Level 4.4 Chloride Level 111 H Carbon Dioxide 26 Level Anion Gap 5 Blood Urea 13 Nitrogen Creatinine 0.28 L Est Glomerular Filtrat Rate mL/min Glucose Level 122 Lactic Acid Level 0.6 Calcium Level 9.1 Bedside Glucose 127 115 102 Medications Medication Current Medications Sodium Chloride 1,000 ml @ 100 mls/hr Q10H IV Last administered on 11/10/18 09:28; Admin Dose 100 MLS/HR; Start 11/08/18 at 05:30 Acetaminophen (Tylenol Liquid) 650 mg Q6H PRN GTB PAIN AND/OR INFLAMMATION; Start 11/08/18 at 22:00 Albuterol (Proventil 0.083% (Neb)) 2.5 mg Q6H RESP THERAPY HHN Last administered on 11/10/18 13:41; Admin Dose 2.5 MG; Start 11/08/18 at 08:00 Ascorbic Acid (Vitamin C) 500 mg BID GTB Last administered on 11/10/18 09:30; Admin Dose 500 MG; Start 11/08/18 at 09:00 Aspirin (Aspirin) 81 mg BID GTB Last administered on 11/10/18 09:34; Admin Dose 81 MG; Start 11/08/18 at 09:00 Baclofen (Lioresal) 20 mg DAILY GTB Last administered on 11/10/18 09:31; Admin Dose 20 MG; Start 11/08/18 at 09:00 Cholecalciferol (Vitamin D) 2,000 unit DAILY GTB Last administered on 11/10/18 09:34; Admin Dose 2,000 UNIT; Start 11/08/18 at 09:00 Clonazepam (Klonopin) 0.5 mg BID GTB Last administered on 11/10/18 09:41; Admin Dose 0.5 MG; Start 11/08/18 at 09:00 Cyanocobalamin (Vitamin B12) 500 mcg DAILY GTB Last administered on 11/10/18 09:34; Admin Dose 500 MCG; Start 11/08/18 at 09:00 Acetaminophen/ Hydrocodone Bitart ([place] (5/325)) 1 tab Q4H PRN GTB MODERATE PAIN LEVEL 4-6; Start 11/08/18 at 04:30 Miscellaneous Information 1 ea NOTE XX ; Start 11/08/18 at 05:00 Ipratropium [place] (Atrovent 0.02% (Neb)) 0.5 mg Q6HWA RESP THERAPY HHN Last administered on 11/10/18 13:40; Admin Dose 0.5 MG; Start 11/08/18 at 08:00 Lactobacillus Acidophilus/ Rhamnosus (Culturelle) 1 cap BID GTB Last administered on 11/10/18 09:29; Admin Dose 1 CAP; Start 11/08/18 at 09:00 Lansoprazole (Prevacid) 30 mg BID@06,18 GTB Last administered on 11/10/18 05:17; Admin Dose 30 MG; Start 11/08/18 at 06:00 Levetiracetam (Keppra Liquid) 500 mg BID GTB Last administered on 11/10/18 09:29; Admin Dose 500 MG; Start 11/08/18 at 09:00 Metoprolol Tartrate (Lopressor) 25 mg BID GTB Last administered on 11/10/18 09:33; Admin Dose 25 MG; Start 11/08/18 at 09:00 Multivitamins (Multivitamin) 30 ml DAILY GTB Last administered on 11/10/18 09:34; Admin Dose 30 ML; Start 11/08/18 at 09:00 Ondansetron HCl (Zofran Inj) 4 mg Q6H PRN IV NAUSEA AND/OR VOMITING; Start 11/08/18 at 05:30 Polyethylene Glycol (Miralax) 17 gm BID GTB Last administered on 11/10/18 09: 34; Admin Dose 17 GM; Start 11/08/18 at 09:00 Sertraline HCl (Zoloft) 50 mg DAILY GTB Last administered on 11/10/18 09:32; Admin Dose 50 MG; Start 11/08/18 at 09:00 Sodium Hypochlorite (Dakins Diluted ()) 1 applic BID TP Last administered on 11/10/18 09:35; Admin Dose 1 APPLIC; Start 11/08/18 at 09:00 Zinc Sulfate (Zinc Sulfate) 220 mg DAILY GTB Last administered on 11/10/18 09:29; Admin Dose 220 MG; Start 11/08/18 at 09:00 Zolpidem Tartrate (Ambien) 5 mg HS PRN PO INSOMNIA; Start 11/08/18 at 05:30 Miscellaneous Information (Pending Santyl Order For Wound Care) This patient donato... PRN PRN XX WOUND CARE; Start 11/08/18 at 05:30 Metoprolol Tartrate (Lopressor) 5 mg Q4H IV ; Start 11/08/18 at 09:00 Insulin Aspart (Novolog Insulin Pen) NOVOLOG *MILD* ALGORI... Q4 SC Last administered on 11/09/18at 00:48; Admin Dose 1 UNIT; Start 11/08/18 at 09:00 Miscellaneous Information 1 ea NOTE XX ; Start 11/08/18 at 08:00 Glucose (Glutose) 15 gm Q15M PRN PO DECREASED GLUCOSE; Start 11/08/18 at 08:00 Glucose (Glutose) 22.5 gm Q15M PRN PO DECREASED GLUCOSE; Start 11/08/18 at 08:00 Dextrose (D50w Syringe) 25 ml Q15M PRN IV DECREASED GLUCOSE; Start 11/08/18 at 08:00 Dextrose (D50w Syringe) 50 ml Q15M PRN IV DECREASED GLUCOSE; Start 11/08/18 at 08:00 Glucagon (Glucagen) 1 mg Q15M PRN IM DECREASED GLUCOSE; Start 11/08/18 at 08:00 Glucose (Glutose) 15 gm Q15M PRN BUCCAL DECREASED GLUCOSE; Start 11/08/18 at 08:00 IV Flush (NS 10 ml) 10 ml PRN PRN IV IV PROTOCOL; Start 11/08/18 at 18:00 Amiodarone HCl (Cordarone) 200 mg BID PO Last administered on 11/10/18at 09:33; Admin Dose 200 MG; Start 11/09/18 at 21:00 Lisinopril (Zestril) 2.5 mg DAILY GTB Last administered on 11/10/18at 09:32; Admin Dose 2.5 MG; Start 11/10/18 at 09:00 Sodium Hypochlorite (Dakins Diluted ()) 1 applic BID TP Last administered on 11/10/18at 09:36; Admin Dose 1 APPLIC; Start 11/09/18 at 21:00 Ciprofloxacin/ Dextrose 200 ml @ 200 mls/hr Q12 IVPB ; Start 11/10/18 at 21:00 IRWIN SKELTON M.D. Nov 10, 2018 16:59
[2018-11-10] MEDS: CIPROFLOXACIN 400MG/D5W 200 ML IVPB SCH (20:50)
[2018-11-11] VITALS (11 sets, daily range): BP systolic 119–137; BP diastolic 56–65; PULSE 56–77; RESP 16–19
[2018-11-11] MEDS: METOPROLOL 5 MG INJ IV SCH ×6 (01:00→21:00)
[2018-11-11] MEDS: INSULIN ASPART [NOVOLOG] 3 ML PEN SC SCH ×4 (01:00→17:28)
[2018-11-11] MEDS: ALBUTEROL 0.083% (NEB) 2.5 MG/3 ML AMP HHN SCH ×4 (01:54→19:22)
[2018-11-11] MEDS: SOD CHLORIDE 0.9% 1,000 ML IV SCH ×2 (03:30→09:12)
[2018-11-11] MEDS: LANSOPRAZOLE 30 MG CAP GTB SCH ×2 (05:50→17:29)
[2018-11-11] MEDS: IPRATROPIUM (NEB) 0.5 MG/2.5 ML AMP HHN SCH ×3 (08:51→19:22)
--- NOTE | 2018-11-11 08:53 | CONS ---
Assessment/Plan Assessment/Plan Hospital Course (Demo Recall) # infection of wound, OM of R hip - colonization of the wound of R hip by pseudomonas (wound culture on 10/31/2018) - s/p repeat debridement at [facility] on 11/03/2018. [address] Pierson, the wound appeared clean during the I&D (my conversation with him on 11/06/2018) - H/o stage sacral decubitus ulcer extending to bilateral buttocks. She reportedly had total hip dislocation and exposed femoral head. CT pelvis showed e/o OM. Pt complete IV vancomycin (09/17/2018-10/29/2018) for sacral OM associated with E. faecalis - H/o sharp excisional debridement down to and including bone of the sacrum on 08/22/2018 and 09/19/2018 - H/o excision of R hip ulcer, girdlestone resection arthroplasty and flap reconstruction 09/23/2018. The surgical pathology showed osteomyelitis of R hip bone, soft tissue cellulitis, and bony margin of excision was free of the disease - XR of R hip on 11/09/2009 showed the remaining R femoral shaft in transverse orientation and with lateral deviation - h/o removal of devitalized/necrotic tissue by Dr. iPerson on 10/07/2018 # sepsis, endovascular infection, respiratory - colonization of the airway by pseudomonas - h/o sepsis due to bacteremia and pneumonia - h/o bacteremia: blood cultures grew enterococcus faecalis on 09/17/2018 secondary to R hip wound infection as its wound culture on 09/16/2018 grew E. faecalis as well - H/o recurrent acute on chronic hypoxemic respiratory failure secondary to secretion retention, mucous plugging, major left lung atelectasis, severe shunting - h/o probable aspiration pneumonia. - h/o pneumonia due to pseudomonas on 09/30/2018. s/p Levaquin (10/03/18- 10/07/2018), Meropenem (restart 09/30/2018-10/03/18, 10/12/18 - 10/19/2018) and empiric Amikacin (09/30/18-10/03/18) - H/o intubation on 09/30/2018 - H/o tracheostomy on 10/04/2018 - h/o pseudomonas in urine culture on 09/17/2018 with mild pyuria; treated with Cefepime (09/20/2018-09/25/2018) # renal/ - H/o moderate L hydronephrosis per renal US - funguria, recurrent # heme/neuro - H/o acute on chronic anemia requiring PRBC - Metabolic encephalopathy - Supranuclear palsy # endo, cardiac - Diabetes Mellitus - A fib with RVR - Chronic diastolic HF (EF 40-45% with grade 1 DD per 2D Echo 10/24/2018) - H/o hypertension # allergy - Penicillin allergy (throat swelling) but Pt tolerated cefepime and ceftazidime - Resulted: [id number] <31 Recommendations: - On Cipro per pcp - according to Dr. Pierson who performed the wound debridement, Pt needs wound care until granulation tissue builds and infection is cleared. Then he would decide if Pt should get repeat closure or not - wound care by Dr. Jesus Wiggins - I recommend orthopedic consult because the remaining R femoral shaft was in transverse orientation and with lateral deviation on XR Management was d/w JAY Fraser and with Dr. Breaux. Thank you Consultation Date/Type/Reason Admit Date/Time Nov 08, 2018 at 03:55 Initial Consult Date 11/09/18 Type of Consult ID Requesting Provider: NADEEN CHO Date/Time of Note DATE: 11/11/18 TIME: 08:51 24 HR Interval Summary Free Text/Dictation Per d/w JAY Fraser, patient has remained afebrile. No acute issues were reported. Patient is unable to contribute to ROS d/t chronic encephalopathy. Exam/Review of Systems Exam Vitals Vital Signs Date Temp Pulse Resp B/P (MAP) Pulse Ox O2 O2 Flow FiO2 Time Delivery Rate 11/11/18 5.0 07:57 11/11/18 98.2 62 16 126/56 99 07:25 (79) 11/11/18 Aerosol 06:26 T Tube 11/11/18 28 00:10 Intake and Output 11/10/18 11/10/18 11/11/18 1515:00 23:00 07:00 IntakeIntake Total 1040 ml OutputOutput Total 850 ml 1500 ml BalanceBalance -850 ml -460 ml Allergies Coded Allergies Penicillins (Verified Allergy, Unknown, 07/06/13) morphine (Verified Adverse Reaction, Mild, "LOOPY", 10/08/18) Uncoded Allergies PLASTIC TAPE ( Allergy, Unknown, 04/01/07) Constitutional: non-verbal, frail, other (chronically debilitated ) Psych: confusion Head: normocephalic, atraumatic Eyes: nl conjunctiva, nl lids, nl sclera ENMT: nl external ears & nose, nl nasal mucosa & septum, mucosa pink and moist (OP exam limited, no thrush on limited exam.) Neck: supple, non-tender, other (trach midline, site with clear secretions saturating dressing [informed RN], on vent.) Respiratory: normal air movement, diminished breath sounds (mildly coarse bilaterally, anteriorly. ); No wheezing Cardiovascular: regular rate and rhythm, nl pulses Gastrointestinal: soft, non-tender, other (GT site is c/d/i, connected to TF.) Genitourinary - Female: other (+F/c draining yellow urine. ) Musculoskeletal: other (Contractures) Extremities: normal pulses; No edema Neurological: other (eyes open without eye tracking, no following of commands or attempts to communicate) Skin: nl turgor, other (Reviewed nsg notes/pictures of R hip wound); No rash or lesions Results Result Diagram: 11/10/18 0510 11/10/18 0510 Results 24hrs Laboratory Tests Test 11/10/18 13:46 11/10/18 17:49 11/10/18 20:46 11/11/18 01:20 Bedside Glucose 102 108 128 107 Test 11/11/18 05:48 Bedside Glucose 136 [address] Pelvis CT 11/10/18 IMPRESSION: 1. Deep decubitus ulcer over the mid and lower sacrum with complete bony eduardo truction of the mid and lower sacrum and most of the coccyx in keeping with osteomyelitis. There is a mild inflammatory phlegmon in the presacral space without an organized abscess. 2. Status post right hip Girdlestone procedure. The proximal right femoral stump is dislocated from the acetabulum and rotated 90 degrees and protrudes into the subcutaneous fat at the site of the skin defect. There is a deep decubitus ulcer in this location. Periosteal reaction along the femoral stump is concerning for osteomyelitis. 3. Heterotopic ossification/dystrophic calcification in the soft tissues at the site of the resected proximal right femur. There is chronic bony remodelling of the right acetabulum. 4. Rectal stool ball measures 7.2 cm and there is constipation in the more upstream colon. Recommend disimpaction. Medications Medication Current Medications Sodium Chloride 1,000 ml @ 100 mls/hr Q10H IV Last administered on 11/10/18 19:39; Admin Dose 100 MLS/HR; Start 11/08/18 at 05:30 Acetaminophen (Tylenol Liquid) 650 mg Q6H PRN GTB PAIN AND/OR INFLAMMATION; Start 11/08/18 at 22:00 Albuterol (Proventil 0.083% (Neb)) 2.5 mg Q6H RESP THERAPY HHN Last administered on 11/11/18 01:54; Admin Dose 2.5 MG; Start 11/08/18 at 08:00 Ascorbic Acid (Vitamin C) 500 mg BID GTB Last administered on 11/10/18 20:47; Admin Dose 500 MG; Start 11/08/18 at 09:00 Aspirin (Aspirin) 81 mg BID GTB Last administered on 11/10/18 20:47; Admin Dose 81 MG; Start 11/08/18 at 09:00 Baclofen (Lioresal) 20 mg DAILY GTB Last administered on 11/10/18 09:31; Admin Dose 20 MG; Start 11/08/18 at 09:00 Cholecalciferol (Vitamin D) 2,000 unit DAILY GTB Last administered on 11/10/18 09:34; Admin Dose 2,000 UNIT; Start 11/08/18 at 09:00 Clonazepam (Klonopin) 0.5 mg BID GTB Last administered on 11/10/18 20:48; Admin Dose 0.5 MG; Start 11/08/18 at 09:00 Cyanocobalamin (Vitamin B12) 500 mcg DAILY GTB Last administered on 11/10/18 09:34; Admin Dose 500 MCG; Start 11/08/18 at 09:00 Acetaminophen/ Hydrocodone Bitart ([place] (5/325)) 1 tab Q4H PRN GTB MODERATE PAIN LEVEL 4-6; Start 11/08/18 at 04:30 Miscellaneous Information 1 ea NOTE XX ; Start 11/08/18 at 05:00 Ipratropium [place] (Atrovent 0.02% (Neb)) 0.5 mg Q6HWA RESP THERAPY HHN Last administered on 11/10/18 19:41; Admin Dose 0.5 MG; Start 11/08/18 at 08:00 Lactobacillus Acidophilus/ Rhamnosus (Culturelle) 1 cap BID GTB Last administered on 11/10/18 20:47; Admin Dose 1 CAP; Start 11/08/18 at 09:00 Lansoprazole (Prevacid) 30 mg BID@,18 GTB Last administered on 11/11/18 05:50; Admin Dose 30 MG; Start 11/08/18 at 06:00 Levetiracetam (Keppra Liquid) 500 mg BID GTB Last administered on 11/10/18 20:48; Admin Dose 500 MG; Start 11/08/18 at 09:00 Metoprolol Tartrate (Lopressor) 25 mg BID GTB Last administered on 11/10/18 20:48; Admin Dose 25 MG; Start 11/08/18 at 09:00 Multivitamins (Multivitamin) 30 ml DAILY GTB Last administered on 11/10/18 09:34; Admin Dose 30 ML; Start 11/08/18 at 09:00 Ondansetron HCl (Zofran Inj) 4 mg Q6H PRN IV NAUSEA AND/OR VOMITING; Start 11/08/18 at 05:30 Polyethylene Glycol (Miralax) 17 gm BID GTB Last administered on 11/10/18 20:48; Admin Dose 17 GM; Start 11/08/18 at 09:00 Sertraline HCl (Zoloft) 50 mg DAILY GTB Last administered on 11/10/18 09:32; Admin Dose 50 MG; Start 11/08/18 at 09:00 Sodium Hypochlorite (Dakins Diluted (40)) 1 applic BID TP Last administered on 11/10/18 20:51; Admin Dose 1 APPLIC; Start 11/08/18 at 09:00 Zinc Sulfate (Zinc Sulfate) 220 mg DAILY GTB Last administered on 11/10/18 09:29; Admin Dose 220 MG; Start 11/08/18 at 09:00 Zolpidem Tartrate (Ambien) 5 mg HS PRN PO INSOMNIA; Start 11/08/18 at 05:30 Miscellaneous Information (Pending [facility] Order For Wound Care) This patient donato... PRN PRN XX WOUND CARE; Start 11/08/18 at 05:30 Metoprolol Tartrate (Lopressor) 5 mg Q4H IV Last administered on 11/10/18at 17:54; Admin Dose 5 MG; Start 11/08/18 at 09:00 Miscellaneous Information 1 ea NOTE XX ; Start 11/08/18 at 08:00 Glucose (Glutose) 15 gm Q15M PRN PO DECREASED GLUCOSE; Start 11/08/18 at 08:00 Glucose (Glutose) 22.5 gm Q15M PRN PO DECREASED GLUCOSE; Start 11/08/18 at 08:00 Dextrose (D50w Syringe) 25 ml Q15M PRN IV DECREASED GLUCOSE; Start 11/08/18 at 08:00 Dextrose (D50w Syringe) 50 ml Q15M PRN IV DECREASED GLUCOSE; Start 11/08/18 at 08:00 Glucagon (Glucagen) 1 mg Q15M PRN IM DECREASED GLUCOSE; Start 11/08/18 at 08:00 Glucose (Glutose) 15 gm Q15M PRN BUCCAL DECREASED GLUCOSE; Start 11/08/18 at 08:00 IV Flush (NS 10 ml) 10 ml PRN PRN IV IV PROTOCOL; Start 11/08/18 at 18:00 Amiodarone HCl (Cordarone) 200 mg BID PO Last administered on 11/10/18at 20:47; Admin Dose 200 MG; Start 11/09/18 at 21:00 Lisinopril (Zestril) 2.5 mg DAILY GTB Last administered on 11/10/18at 09:32; Admin Dose 2.5 MG; Start 11/10/18 at 09:00 Sodium Hypochlorite (Dakins Diluted ()) 1 applic BID TP Last administered on 11/10/18at 20:51; Admin Dose 1 APPLIC; Start 11/09/18 at 21:00 Ciprofloxacin/ Dextrose 200 ml @ 200 mls/hr Q12 IVPB Last administered on 11/10/18at 20:50; Admin Dose 200 MLS/HR; Start 11/10/18 at 21:00 Insulin Aspart (Novolog Insulin Pen) NOVOLOG *MILD* ALGORI... Q6 SC ; Start 11/11/18 at 06:00 ZENON RUDOLPH NP Nov 11, 2018 08:53
[2018-11-11] MEDS: ASCORBIC ACID 500 MG TAB GTB SCH ×2 (08:55→21:16)
[2018-11-11] MEDS: CHOLECALCIFEROL 2,000 UNIT CAP GTB SCH (08:55)
[2018-11-11] MEDS: ZINC SULFATE 220 MG CAP GTB SCH (08:55)
[2018-11-11] MEDS: clonAZEPAM 0.5 MG TAB GTB SCH ×2 (08:55→21:32)
[2018-11-11] MEDS: LEVETIRACETAM (100 MG/ML) 5ML CUP GTB SCH ×2 (08:55→21:20)
[2018-11-11] MEDS: LACTOBACILLUS RHAMNOSUS CAP GTB SCH ×2 (08:55→21:16)
[2018-11-11] MEDS: CYANOCOBALAMIN 500 MCG TAB GTB SCH (08:55)
[2018-11-11] MEDS: MULTIVITAMINS 30 ML CUP GTB SCH (08:55)
[2018-11-11] MEDS: CIPROFLOXACIN 400MG/D5W 200 ML IVPB SCH ×2 (08:56→21:17)
[2018-11-11] MEDS: SERTRALINE 50 MG TAB GTB SCH (08:56)
[2018-11-11] MEDS: POLYETHYLENE GLYCOL 17 GM PACKET GTB SCH ×2 (08:56→21:17)
[2018-11-11] MEDS: BACLOFEN 10 MG TAB GTB SCH (08:56)
[2018-11-11] MEDS: ASPIRIN 81 MG TAB GTB SCH ×2 (08:56→21:16)
[2018-11-11] MEDS: METOPROLOL 25 MG TAB GTB SCH ×2 (08:57→21:16)
[2018-11-11] MEDS: AMIODARONE 200 MG TAB PO SCH ×2 (08:58→21:15)
[2018-11-11] MEDS: LISINOPRIL 5 MG TAB GTB SCH (08:58)
[2018-11-11] MEDS: DAKINS 0.0125%(1/40) 473 ML SOLUTION TP SCH ×4 (08:59→21:19)
--- NOTE | 2018-11-11 10:52 | CONS ---
Consult Date/Type/Reason Admit Date/Time Nov 08, 2018 at 03:55 Initial Consult Date 11/09/18 Type of Consult Pulmonary Requesting Provider: NADEEN CHO Date/Time of Note DATE: 11/11/18 TIME: 10:50 Subjective Patient appears comfortable this morning no respiratory distress Objective Vital Signs Date Temp Pulse Resp B/P (MAP) Pulse Ox O2 O2 Flow FiO2 Time Delivery Rate 11/11/18 68 18 67 Aerosol 5.0 08:51 11/11/18 28 08:51 11/11/18 98.2 126/56 07:25 (79) Intake and Output 11/10/18 11/10/18 11/11/18 1414:59 22:59 06:59 IntakeIntake Total 1040 ml OutputOutput Total 850 ml 1500 ml BalanceBalance -850 ml -460 ml Exam GENERAL: Chronically ill-appearing lady VITAL SIGNS: per chart NECK: Supple. No JVD or lymphadenopathy. CARDIAC EXAM: S1, S2. No added sounds or murmurs. CHEST: Diminished air entry bilaterally ABDOMEN: Soft, nontender. No guarding or rebound. EXTREMITIES: No cyanosis, clubbing or edema. NEUROLOGIC: Generalized weakness. Contractures stage III-IV decubitus Vent Setting Fraction of Inspired Oxygen pe: 28 Results/Medications Result Diagram: 11/10/18 0510 11/10/18 0510 Results 24 hrs Laboratory Tests Test 11/10/18 13:46 11/10/18 17:49 11/10/18 20:46 11/11/18 01:20 Bedside Glucose 102 108 128 107 Test 11/11/18 05:48 Bedside Glucose 136 Medications Current Medications Sodium Chloride 1,000 ml @ 100 mls/hr Q10H IV Last administered on 11/11/18at 09:12; Admin Dose 100 MLS/HR; Start 11/08/18 at 05:30 Acetaminophen (Tylenol Liquid) 650 mg Q6H PRN GTB PAIN AND/OR INFLAMMATION; Start 11/08/18 at 22:00 Albuterol (Proventil 0.083% (Neb)) 2.5 mg Q6H RESP THERAPY HHN Last administered on 11/11/18at 08:51; Admin Dose 2.5 MG; Start 11/08/18 at 08:00 Ascorbic Acid (Vitamin C) 500 mg BID GTB Last administered on 11/11/18 08:55; Admin Dose 500 MG; Start 11/08/18 at 09:00 Aspirin (Aspirin) 81 mg BID GTB Last administered on 11/11/18 08:56; Admin Dose 81 MG; Start 11/08/18 at 09:00 Baclofen (Lioresal) 20 mg DAILY GTB Last administered on 11/11/18 08:56; Admin Dose 20 MG; Start 11/08/18 at 09:00 Cholecalciferol (Vitamin D) 2,000 unit DAILY GTB Last administered on 11/11/18 08:55; Admin Dose 2,000 UNIT; Start 11/08/18 at 09:00 Clonazepam (Klonopin) 0.5 mg BID GTB Last administered on 11/11/18 08:55; Admin Dose 0.5 MG; Start 11/08/18 at 09:00 Cyanocobalamin (Vitamin B12) 500 mcg DAILY GTB Last administered on 11/11/18 08:55; Admin Dose 500 MCG; Start 11/08/18 at 09:00 Acetaminophen/ Hydrocodone Bitart ([place] (5/325)) 1 tab Q4H PRN GTB MODERATE PAIN LEVEL 4-6; Start 11/08/18 at 04:30 Miscellaneous Information 1 ea NOTE XX ; Start 11/08/18 at 05:00 Ipratropium [place] (Atrovent 0.02% (Neb)) 0.5 mg Q6HWA RESP THERAPY HHN Last administered on 11/11/18 08:51; Admin Dose 0.5 MG; Start 11/08/18 at 08:00 Lactobacillus Acidophilus/ Rhamnosus (Culturelle) 1 cap BID GTB Last administered on 11/11/18 08:55; Admin Dose 1 CAP; Start 11/08/18 at 09:00 Lansoprazole (Prevacid) 30 mg BID@18 GTB Last administered on 11/11/18 05:50; Admin Dose 30 MG; Start 11/08/18 at 06:00 Levetiracetam (Keppra Liquid) 500 mg BID GTB Last administered on 11/11/18 08:55; Admin Dose 500 MG; Start 11/08/18 at 09:00 Metoprolol Tartrate (Lopressor) 25 mg BID GTB Last administered on 11/11/18 08:57; Admin Dose 25 MG; Start 11/08/18 at 09:00 Multivitamins (Multivitamin) 30 ml DAILY GTB Last administered on 11/11/18 08:55; Admin Dose 30 ML; Start 11/08/18 at 09:00 Ondansetron HCl (Zofran Inj) 4 mg Q6H PRN IV NAUSEA AND/OR VOMITING; Start 11/08/18 at 05:30 Polyethylene Glycol (Miralax) 17 gm BID GTB Last administered on 11/11/18 08:56; Admin Dose 17 GM; Start 11/08/18 at 09:00 Sertraline HCl (Zoloft) 50 mg DAILY GTB Last administered on 11/11/18 08:56; Admin Dose 50 MG; Start 11/08/18 at 09:00 Sodium Hypochlorite (Dakins Diluted ()) 1 applic BID TP Last administered on 11/11/18 08:59; Admin Dose 1 APPLIC; Start 11/08/18 at 09:00 Zinc Sulfate (Zinc Sulfate) 220 mg DAILY GTB Last administered on 11/11/18 08:55; Admin Dose 220 MG; Start 11/08/18 at 09:00 Zolpidem Tartrate (Ambien) 5 mg HS PRN PO INSOMNIA; Start 11/08/18 at 05:30 Miscellaneous Information (Pending [facility] Order For Wound Care) This patient donato... PRN PRN XX WOUND CARE; Start 11/08/18 at 05:30 Metoprolol Tartrate (Lopressor) 5 mg Q4H IV Last administered on 11/10/18 17:54; Admin Dose 5 MG; Start 11/08/18 at 09:00 Miscellaneous Information 1 ea NOTE XX ; Start 11/08/18 at 08:00 Glucose (Glutose) 15 gm Q15M PRN PO DECREASED GLUCOSE; Start 11/08/18 at 08:00 Glucose (Glutose) 22.5 gm Q15M PRN PO DECREASED GLUCOSE; Start 11/08/18 at 08:00 Dextrose (D50w Syringe) 25 ml Q15M PRN IV DECREASED GLUCOSE; Start 11/08/18 at 08:00 Dextrose (D50w Syringe) 50 ml Q15M PRN IV DECREASED GLUCOSE; Start 11/08/18 at 08:00 Glucagon (Glucagen) 1 mg Q15M PRN IM DECREASED GLUCOSE; Start 11/08/18 at 08:00 Glucose (Glutose) 15 gm Q15M PRN BUCCAL DECREASED GLUCOSE; Start 11/08/18 at 08:00 IV Flush (NS 10 ml) 10 ml PRN PRN IV IV PROTOCOL; Start 11/08/18 at 18:00 Amiodarone HCl (Cordarone) 200 mg BID PO Last administered on 11/11/18at 08:58; Admin Dose 200 MG; Start 11/09/18 at 21:00 Lisinopril (Zestril) 2.5 mg DAILY GTB Last administered on 11/11/18at 08:58; Admin Dose 2.5 MG; Start 11/10/18 at 09:00 Sodium Hypochlorite (Dakins Diluted (40)) 1 applic BID TP Last administered on 11/11/18at 08:59; Admin Dose 1 APPLIC; Start 11/09/18 at 21:00 Ciprofloxacin/ Dextrose 200 ml @ 200 mls/hr Q12 IVPB Last administered on at 08:56; Admin Dose 200 MLS/HR; Start 11/10/18 at 21:00 Insulin Aspart (Novolog Insulin Pen) NOVOLOG *MILD* ALGORI... Q6 SC ; Start 11/11/18 at 06:00 Assessment/Plan Hospital Course (Demo Recall) IMP: 1. Severe Sepsis--2/2 wound infection 2. Afib with RVR 3. 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 Chronic encephalopathy 5. Seizure D/O 6. Dementia 7. Decubitus ulcers RECS: 1. Abx per ID 2. BD's/CPT/suctioning 3. Monitor on t-piece 4. Follow cultures 5. Wound care 6. Rate control 7. TF/Free H20 JARED NICOLAS MD, [facility] Nov 11, 2018 10:51
--- NOTE | 2018-11-11 12:03 | CONS ---
Assessment/Plan Assessment/Plan Hospital Course (Demo Recall) IMPRESSION: 1. Paroxysmal atrial fibrillation flutter with rapid ventricular response, currently in sinus rhythm but as of this morning was in rapid atrial fibrillation and flutter. 2. Hypotension, borderline. 3. Congestive heart failure, systolic, acute on chronic. 4. Cardiomyopathy with mildly depressed left ventricular ejection fraction, last approximately 40% to 45% by echo 10/2018. 5. Encephalopathy, chronic. 6. Progressive supranuclear palsy. 7. Anemia. 8. Diabetes mellitus. Recc: -ICU -Continue po amio now in attempt to maintain SR -BB/ACEI as tolerated only -Follow volume status closely -pulmonary toliet Consultation Date/Type/Reason Admit Date/Time Nov 08, 2018 at 03:55 Initial Consult Date 11/08/18 Type of Consult Cardiology Reason for Consultation PAF Requesting Provider: NADEEN CHO Date/Time of Note DATE: 11/11/18 TIME: 12:02 Exam/Review of Systems Vital Signs Vitals Vital Signs Date Temp Pulse Resp B/P (MAP) Pulse Ox O2 O2 Flow FiO2 Time Delivery Rate 11/11/18 97.7 59 16 137/65 95 11:03 (89) 11/11/18 Aerosol 5.0 08:51 11/11/18 28 08:51 Intake and Output 11/10/18 11/10/18 11/11/18 1515:00 23:00 07:00 IntakeIntake Total 1040 ml OutputOutput Total 850 ml 1500 ml BalanceBalance -850 ml -460 ml Exam Exam Review of Systems: CONSTITUTIONAL: No fevers, chills. PULMONARY: No sob CARDIOVASCULAR: No chest pain/palpitations GASTROINTESTINAL: No nausea/vomiting. GENITOURINARY: No hematuria/dysuria. MUSCULOSKELETAL: No myagias/arthalgias. PSYCHIATRIC: The patient denies depression. NEUROLOGIC: encephalopathic Constitutional: other (encephalopathic) Psych: no complaints Head: normocephalic ENMT: mucosa pink and moist Neck: supple, jvd (9 cm water) Respiratory: diminished breath sounds (at bases/B) Cardiovascular: regular rate and rhythm Gastrointestinal: soft, non-tender Musculoskeletal: muscle tone (normal) Extremities: edema (none) Neurological: other (No focal deficits) Labs Result Diagram: 11/10/18 0510 11/10/18 0510 Results 24hrs Laboratory Tests Test 11/10/18 13:46 11/10/18 17:49 11/10/18 20:46 11/11/18 01:20 Bedside Glucose 102 108 128 107 Test 11/11/18 05:48 Bedside Glucose 136 Medications Medications Current Medications Sodium Chloride 1,000 ml @ 100 mls/hr Q10H IV Last administered on 11/11/18 09:12; Admin Dose 100 MLS/HR; Start 11/08/18 at 05:30 Acetaminophen (Tylenol Liquid) 650 mg Q6H PRN GTB PAIN AND/OR INFLAMMATION; Start 11/08/18 at 22:00 Albuterol (Proventil 0.083% (Neb)) 2.5 mg Q6H RESP THERAPY HHN Last administered on 11/11/18 08:51; Admin Dose 2.5 MG; Start 11/08/18 at 08:00 Ascorbic Acid (Vitamin C) 500 mg BID GTB Last administered on 11/11/18 08:55; Admin Dose 500 MG; Start 11/08/18 at 09:00 Aspirin (Aspirin) 81 mg BID GTB Last administered on 11/11/18 08:56; Admin Dose 81 MG; Start 11/08/18 at 09:00 Baclofen (Lioresal) 20 mg DAILY GTB Last administered on 11/11/18 08:56; Admin Dose 20 MG; Start 11/08/18 at 09:00 Cholecalciferol (Vitamin D) 2,000 unit DAILY GTB Last administered on 11/11/18 08:55; Admin Dose 2,000 UNIT; Start 11/08/18 at 09:00 Clonazepam (Klonopin) 0.5 mg BID GTB Last administered on 11/11/18 08:55; Admin Dose 0.5 MG; Start 11/08/18 at 09:00 Cyanocobalamin (Vitamin B12) 500 mcg DAILY GTB Last administered on 11/11/18 0 8:55; Admin Dose 500 MCG; Start 11/08/18 at 09:00 Acetaminophen/ Hydrocodone Bitart ([place] (5/325)) 1 tab Q4H PRN GTB MODERATE PAIN LEVEL 4-6; Start 11/08/18 at 04:30 Miscellaneous Information 1 ea NOTE XX ; Start 11/08/18 at 05:00 Ipratropium [place] (Atrovent 0.02% (Neb)) 0.5 mg Q6HWA RESP THERAPY HHN Last administered on 11/11/18 08:51; Admin Dose 0.5 MG; Start 11/08/18 at 08:00 Lactobacillus Acidophilus/ Rhamnosus (Culturelle) 1 cap BID GTB Last administered on 11/11/18 08:55; Admin Dose 1 CAP; Start 11/08/18 at 09:00 Lansoprazole (Prevacid) 30 mg BID@,18 GTB Last administered on 11/11/18 05:50; Admin Dose 30 MG; Start 11/08/18 at 06:00 Levetiracetam (Keppra Liquid) 500 mg BID GTB Last administered on 11/11/18 08:55; Admin Dose 500 MG; Start 11/08/18 at 09:00 Metoprolol Tartrate (Lopressor) 25 mg BID GTB Last administered on 11/11/18 08:57; Admin Dose 25 MG; Start 11/08/18 at 09:00 Multivitamins (Multivitamin) 30 ml DAILY GTB Last administered on 11/11/18 08:55; Admin Dose 30 ML; Start 11/08/18 at 09:00 Ondansetron HCl (Zofran Inj) 4 mg Q6H PRN IV NAUSEA AND/OR VOMITING; Start 11/08/18 at 05:30 Polyethylene Glycol (Miralax) 17 gm BID GTB Last administered on 11/11/18 08:56; Admin Dose 17 GM; Start 11/08/18 at 09:00 Sertraline HCl (Zoloft) 50 mg DAILY GTB Last administered on 11/11/18 08:56; Admin Dose 50 MG; Start 11/08/18 at 09:00 Sodium Hypochlorite (Dakins Diluted ()) 1 applic BID TP Last administered on 11/11/18 08:59; Admin Dose 1 APPLIC; Start 11/08/18 at 09:00 Zinc Sulfate (Zinc Sulfate) 220 mg DAILY GTB Last administered on 11/11/18 08:55; Admin Dose 220 MG; Start 11/08/18 at 09:00 Zolpidem Tartrate (Ambien) 5 mg HS PRN PO INSOMNIA; Start 11/08/18 at 05:30 Miscellaneous Information (Pending Santyl Order For Wound Care) This patient donato... PRN PRN XX WOUND CARE; Start 11/08/18 at 05:30 Metoprolol Tartrate (Lopressor) 5 mg Q4H IV Last administered on 11/10/18at 17:54; Admin Dose 5 MG; Start 11/08/18 at 09:00 Miscellaneous Information 1 ea NOTE XX ; Start 11/08/18 at 08:00 Glucose (Glutose) 15 gm Q15M PRN PO DECREASED GLUCOSE; Start 11/08/18 at 08:00 Glucose (Glutose) 22.5 gm Q15M PRN PO DECREASED GLUCOSE; Start 11/08/18 at 08:00 Dextrose (D50w Syringe) 25 ml Q15M PRN IV DECREASED GLUCOSE; Start 11/08/18 at 08:00 Dextrose (D50w Syringe) 50 ml Q15M PRN IV DECREASED GLUCOSE; Start 11/08/18 at 08:00 Glucagon (Glucagen) 1 mg Q15M PRN IM DECREASED GLUCOSE; Start 11/08/18 at 08:00 Glucose (Glutose) 15 gm Q15M PRN BUCCAL DECREASED GLUCOSE; Start 11/08/18 at 08:00 IV Flush (NS 10 ml) 10 ml PRN PRN IV IV PROTOCOL; Start 11/08/18 at 18:00 Amiodarone HCl (Cordarone) 200 mg BID PO Last administered on 11/11/18at 08:58; Admin Dose 200 MG; Start 11/09/18 at 21:00 Lisinopril (Zestril) 2.5 mg DAILY GTB Last administered on 11/11/18at 08:58; Admin Dose 2.5 MG; Start 11/10/18 at 09:00 Sodium Hypochlorite (Dakins Diluted (40)) 1 applic BID TP Last administered on 11/11/18at 08:59; Admin Dose 1 APPLIC; Start 11/09/18 at 21:00 Ciprofloxacin/ Dextrose 200 ml @ 200 mls/hr Q12 IVPB Last administered on 11/11/18at 08:56; Admin Dose 200 MLS/HR; Start 11/10/18 at 21:00 Insulin Aspart (Novolog Insulin Pen) NOVOLOG *MILD* ALGORI... Q6 SC ; Start 11/11/18 at 06:00 MAITE VAZQUEZ Nov 11, 2018 12:03
--- NOTE | 2018-11-11 15:31 | PN ---
Date/Time of Note Date/Time of Note DATE: 11/11/18 TIME: 15:19 Assessment/Plan VTE Prophylaxis Risk score (from Ns)>0 risk: 5 SCD applied (from Ns): Yes Pharmacological prophylaxis: LMWH Lines/Catheters IV Catheter Type (from Nrsg): PICC Line Central line still needed: Yes Urinary Cath still in place: Yes Reason Cath still needed: urinary retention Assessment/Plan Hospital Course Patient is currently in sinus rhythm, continues on cool aerosol mist via tracheostomy with moderate amount of secretion, remains afebrile, continue current care. Assessment/Plan -Atrial fibrillation/ flutter with rapid ventricular response. Continue amiodarone. Dr. Monson is following in cardiology consultation. -Progressive supranuclear palsy -Respiratory failure with tracheostomy patient is currently on cool aerosol mist. -Chronic encephalopathy -Decubitus ulcer of the right hip and sacrum, status post Girdlestone procedure of the right hip with flap in September 2018, followed by removal of necrotic tissue by Dr. Triplett at [facility]. -Right hip wound infection with OM of R hip, completed treatment with anti biotics. -Wound dehiscence, s/p repeat debridement at [facility] on 11/03/2018. -Diabetes -Chronic diastolic CHF -Dysphagia with GT -Anemia of chronic disease Further recommendations based on clinical course. Plan of care discussed with Dr. Shannon Result Diagram: 11/10/18 0510 11/10/18 0510 Results 24hrs Laboratory Tests Test 11/10/18 17:49 11/10/18 20:46 11/11/18 01:20 11/11/18 05:48 Bedside Glucose 108 128 107 136 Test 11/11/18 12:22 Bedside Glucose 112 Exam/Review of Systems Exam Vitals Vital Signs Date Temp Pulse Resp B/P (MAP) Pulse Ox O2 O2 Flow FiO2 Time Delivery Rate 11/11/18 100 5.0 28 14:49 11/11/18 72 18 Aerosol 14:49 11/11/18 97.7 137/65 11:03 (89) Intake and Output 11/10/18 11/10/18 11/11/18 1515:00 23:00 07:00 IntakeIntake Total 1040 ml OutputOutput Total 850 ml 1500 ml BalanceBalance -850 ml -460 ml Constitutional: non-verbal Head: normocephalic Neck: supple, other (trach) Respiratory: diminished breath sounds Cardiovascular: regular rate and rhythm Gastrointestinal: soft, non-tender, other (G- tube) Genitourinary - Female: other Extremities: other (contracted) Skin: other (Sacral and right hip wound) Results Results 24hrs Laboratory Tests Test 11/10/18 17:49 11/10/18 20:46 11/11/18 01:20 11/11/18 05:48 Bedside Glucose 108 128 107 136 Test 11/11/18 12:22 Bedside Glucose 112 Medications Medication Current Medications Sodium Chloride 1,000 ml @ 100 mls/hr Q10H IV Last administered on 11/11/18 09:12; Admin Dose 100 MLS/HR; Start 11/08/18 at 05:30 Acetaminophen (Tylenol Liquid) 650 mg Q6H PRN GTB PAIN AND/OR INFLAMMATION; Start 11/08/18 at 22:00 Albuterol (Proventil 0.083% (Neb)) 2.5 mg Q6H RESP THERAPY HHN Last administered on 11/11/18 14:49; Admin Dose 2.5 MG; Start 11/08/18 at 08:00 Ascorbic Acid (Vitamin C) 500 mg BID GTB Last administered on 11/11/18 08:55; Admin Dose 500 MG; Start 11/08/18 at 09:00 Aspirin (Aspirin) 81 mg BID GTB Last administered on 11/11/18 08:56; Admin Dose 81 MG; Start 11/08/18 at 09:00 Baclofen (Lioresal) 20 mg DAILY GTB Last administered on 11/11/18 08:56; Admin Dose 20 MG; Start 11/08/18 at 09:00 Cholecalciferol (Vitamin D) 2,000 unit DAILY GTB Last administered on 11/11/18 08:55; Admin Dose 2,000 UNIT; Start 11/08/18 at 09:00 Clonazepam (Klonopin) 0.5 mg BID GTB Last administered on 11/11/18 08:55; Admin Dose 0.5 MG; Start 11/08/18 at 09:00 Cyanocobalamin (Vitamin B12) 500 mcg DAILY GTB Last administered on 11/11/18 08:55; Admin Dose 500 MCG; Start 11/08/18 at 09:00 Acetaminophen/ Hydrocodone Bitart ([place] (5/325)) 1 tab Q4H PRN GTB MODERATE PAIN LEVEL 4-6; Start 11/08/18 at 04:30 Miscellaneous Information 1 ea NOTE XX ; Start 11/08/18 at 05:00 Ipratropium [place] (Atrovent 0.02% (Neb)) 0.5 mg Q6HWA RESP THERAPY HHN Last administered on 11/11/18 14:49; Admin Dose 0.5 MG; Start 11/08/18 at 08:00 Lactobacillus Acidophilus/ Rhamnosus (Culturelle) 1 cap BID GTB Last administered on 11/11/18 08:55; Admin Dose 1 CAP; Start 11/08/18 at 09:00 Lansoprazole (Prevacid) 30 mg BID@,18 GTB Last administered on 11/11/18 05:50; Admin Dose 30 MG; Start 11/08/18 at 06:00 Levetiracetam (Keppra Liquid) 500 mg BID GTB Last administered on 11/11/18 08:55; Admin Dose 500 MG; Start 11/08/18 at 09:00 Metoprolol Tartrate (Lopressor) 25 mg BID GTB Last administered on 11/11/18 08:57; Admin Dose 25 MG; Start 11/08/18 at 09:00 Multivitamins (Multivitamin) 30 ml DAILY GTB Last administered on 11/11/18 08:55; Admin Dose 30 ML; Start 11/08/18 at 09:00 Ondansetron HCl (Zofran Inj) 4 mg Q6H PRN IV NAUSEA AND/OR VOMITING; Start 11/08/18 at 05:30 Polyethylene Glycol (Miralax) 17 gm BID GTB Last administered on 11/11/18 08 :56; Admin Dose 17 GM; Start 11/08/18 at 09:00 Sertraline HCl (Zoloft) 50 mg DAILY GTB Last administered on 11/11/18 08:56; Admin Dose 50 MG; Start 11/08/18 at 09:00 Sodium Hypochlorite (Dakins Diluted ()) 1 applic BID TP Last administered on 11/11/18 08:59; Admin Dose 1 APPLIC; Start 11/08/18 at 09:00 Zinc Sulfate (Zinc Sulfate) 220 mg DAILY GTB Last administered on 11/11/18at 08:55; Admin Dose 220 MG; Start 11/08/18 at 09:00 Zolpidem Tartrate (Ambien) 5 mg HS PRN PO INSOMNIA; Start 11/08/18 at 05:30 Miscellaneous Information (Pending Santyl Order For Wound Care) This patient donato... PRN PRN XX WOUND CARE; Start 11/08/18 at 05:30 Metoprolol Tartrate (Lopressor) 5 mg Q4H IV Last administered on 11/10/18at 17:54; Admin Dose 5 MG; Start 11/08/18 at 09:00 Miscellaneous Information 1 ea NOTE XX ; Start 11/08/18 at 08:00 Glucose (Glutose) 15 gm Q15M PRN PO DECREASED GLUCOSE; Start 11/08/18 at 08:00 Glucose (Glutose) 22.5 gm Q15M PRN PO DECREASED GLUCOSE; Start 11/08/18 at 08:00 Dextrose (D50w Syringe) 25 ml Q15M PRN IV DECREASED GLUCOSE; Start 11/08/18 at 08:00 Dextrose (D50w Syringe) 50 ml Q15M PRN IV DECREASED GLUCOSE; Start 11/08/18 at 08:00 Glucagon (Glucagen) 1 mg Q15M PRN IM DECREASED GLUCOSE; Start 11/08/18 at 08:00 Glucose (Glutose) 15 gm Q15M PRN BUCCAL DECREASED GLUCOSE; Start 11/08/18 at 08:00 IV Flush (NS 10 ml) 10 ml PRN PRN IV IV PROTOCOL; Start 11/08/18 at 18:00 Amiodarone HCl (Cordarone) 200 mg BID PO Last administered on 11/11/18at 08:58; Admin Dose 200 MG; Start 11/09/18 at 21:00 Lisinopril (Zestril) 2.5 mg DAILY GTB Last administered on 11/11/18at 08:58; Admin Dose 2.5 MG; Start 11/10/18 at 09:00 Sodium Hypochlorite (Dakins Diluted (40)) 1 applic BID TP Last administered on 11/11/18at 08:59; Admin Dose 1 APPLIC; Start 11/09/18 at 21:00 Ciprofloxacin/ Dextrose 200 ml @ 200 mls/hr Q12 IVPB Last administered on 11/11/18at 08:56; Admin Dose 200 MLS/HR; Start 11/10/18 at 21:00 Insulin Aspart (Novolog Insulin Pen) NOVOLOG *MILD* ALGORI... Q6 SC ; Start 11/11/18 at 06:00 LUIZ BRANNON Nov 11, 2018 15:29
--- NOTE | 2018-11-11 23:16 | PN ---
Date/Time of Note Date/Time of Note DATE: 11/11/18 TIME: 23:07 Assessment/Plan Lines/Catheters IV Catheter Type (from Nrs): Mid Line Ramires in Place (from Nrs): Yes Assessment/Plan Chief Complaint/Hosp Course 1. Sacral and right hip wound: recently completed abx tx for osteo; S/p Girdlestone resection arthroplasty and flap reconstruction 09/23/2018 which fell apart and currently w exposed bone. CT noted. -debridement prn -local care w [place]'s -frequent turning and off-loading -low air loss mattress -vitamin c -short term zinc -optimize nutrition -Ortho consult 2. Paroxysmal Atiral fibrillation with RVR: Currently in sinus rhythm -per cards -rate control 3. Respiratory faillure: s/p trach -pulm toilet 4. Supranuclear palsy -injury prevention/supportive 5. DM: -glucose mgt 6. Hypochromic normocytic anemia: -monitor and tx as needed Thank you, Subjective [address] noted. Labs noted. Appears comfortable. No fevers, labored breathing, congested cough, vomiting, diarrhea, seizure, rash. Currently in sinus rhythm. Exam/Review of Systems Vital Signs Vitals Vital Signs Date Temp Pulse Resp B/P (MAP) Pulse Ox O2 O2 Flow FiO2 Time Delivery Rate 11/11/18 5.0 20:20 11/11/18 66 20:00 11/11/18 98.5 18 123/59 100 19:46 (80) 11/11/18 Aerosol 19:22 T Tube 11/11/18 28 19:22 Intake and Output 11/10/18 11/10/18 11/11/18 1515:00 23:00 07:00 IntakeIntake Total 1040 ml OutputOutput Total 850 ml 1500 ml BalanceBalance -850 ml -460 ml Exam Free Text/Dictation Constitutional: alert, other; No distress Head: normocephalic, atraumatic Eyes: nl conjunctiva, nl lids, nl sclera ENMT: nl external ears & nose, nl lips & teeth, mucosa pink and moist Neck: non-tender Respiratory: normal air movement; No congested cough Cardiovascular: regular rate and rhythm, nl pulses; No edema Gastrointestinal: soft, non-tender; No distended Genitourinary - Female: nl adnexae, nl external genitalia Musculoskeletal: other; No muscle tone Extremities: normal pulses; No edema, No tenderness Neurological: No nl mental status, No nl speech, No nl strength Skin: other; sacral (minimal odor, moderate drainage, packed); right hip: (Exposed bone, minimal slough, minimal odor, moderate drainage) No rash or lesions, No diaphoresis Results Result Diagram: 11/10/18 0510 11/10/18 0510 ARIANNA PIEDRA MD Nov 11, 2018 23:16
[2018-11-12] VITALS (11 sets, daily range): BP systolic 107–148; BP diastolic 56–77; PULSE 58–78; RESP 16–20
[2018-11-12] MEDS: METOPROLOL 5 MG INJ IV SCH ×6 (01:00→20:57)
[2018-11-12] MEDS: ALBUTEROL 0.083% (NEB) 2.5 MG/3 ML AMP HHN SCH ×4 (02:03→19:36)
[2018-11-12] MEDS: LANSOPRAZOLE 30 MG CAP GTB SCH ×2 (05:50→17:51)
[2018-11-12] MEDS: INSULIN ASPART [NOVOLOG] 3 ML PEN SC SCH ×4 (06:00→17:51)
[2018-11-12] MEDS: SOD CHLORIDE 0.9% 1,000 ML IV SCH (07:30)
[2018-11-12] MEDS: IPRATROPIUM (NEB) 0.5 MG/2.5 ML AMP HHN SCH ×3 (08:14→19:36)
[2018-11-12] MEDS: METOPROLOL 25 MG TAB GTB SCH ×2 (09:00→20:56)
[2018-11-12] MEDS: SERTRALINE 50 MG TAB GTB SCH (10:20)
[2018-11-12] MEDS: ASPIRIN 81 MG TAB GTB SCH ×2 (10:20→20:45)
[2018-11-12] MEDS: LISINOPRIL 5 MG TAB GTB SCH (10:20)
[2018-11-12] MEDS: ZINC SULFATE 220 MG CAP GTB SCH (10:20)
[2018-11-12] MEDS: ASCORBIC ACID 500 MG TAB GTB SCH ×2 (10:20→20:45)
[2018-11-12] MEDS: CHOLECALCIFEROL 2,000 UNIT CAP GTB SCH (10:21)
[2018-11-12] MEDS: LACTOBACILLUS RHAMNOSUS CAP GTB SCH ×2 (10:21→20:46)
[2018-11-12] MEDS: clonAZEPAM 0.5 MG TAB GTB SCH ×2 (10:21→20:45)
[2018-11-12] MEDS: BACLOFEN 10 MG TAB GTB SCH (10:21)
[2018-11-12] MEDS: POLYETHYLENE GLYCOL 17 GM PACKET GTB SCH ×2 (10:22→20:45)
[2018-11-12] MEDS: CYANOCOBALAMIN 500 MCG TAB GTB SCH (10:22)
[2018-11-12] MEDS: AMIODARONE 200 MG TAB PO SCH ×2 (10:22→20:56)
[2018-11-12] MEDS: LEVETIRACETAM (100 MG/ML) 5ML CUP GTB SCH ×2 (10:22→20:45)
[2018-11-12] MEDS: CIPROFLOXACIN 400MG/D5W 200 ML IVPB SCH ×2 (10:22→20:45)
[2018-11-12] MEDS: MULTIVITAMINS 30 ML CUP GTB SCH (10:22)
--- NOTE | 2018-11-12 10:47 | PN ---
Date/Time of Note Date/Time of Note DATE: 11/12/18 TIME: 10:41 Assessment/Plan Lines/Catheters IV Catheter Type (from Nrs): Mid Line Ramires in Place (from Nrs): Yes Assessment/Plan Chief Complaint/Hosp Course 1. sacral and right hip wound: recently completed abx tx for osteo; S/p Girdlestone resection arthroplasty and flap reconstruction 09/23/2018, currently w exposed bone; CT: (sacrum and coccyx, right femoral stump with osteomyelitis, mild inflammatory phlegmon and presacral space without abscess; right femoral stump dislocation from acetabulum and rotated 90 degrees) -debridement prn -local care w [facility]> wound care already ordered -frequent turning and off-loading -low air loss mattress -vitamin c -short term zinc -optimize nutrition -Recommend Ortho consult -ID 2. Paroxysmal Atiral fibrillation with RVR: Currently in sinus rhythm -per cards -rate control 3. Respiratory faillure: s/p trach -pulm toilet 4. Supranuclear palsy -injury prevention/supportive 5. DM: -glucose mgt 6. Hypochromic normocytic anemia: -monitor and tx as needed Thank you. Patient seen and examined in collaboration with Dr. Gilmar Wiggins. Thank you. Patient seen and examined in collaboration with Dr. Gilmar Wiggins. Subjective 24 Hr Interval Summary No fevers, labored breathing, congested cough, dysrhythmias, vomiting, diarrhea, hematuria, excessive wound drainage or odor. Exam/Review of Systems Vital Signs Vitals Vital Signs Date Temp Pulse Resp B/P (MAP) Pulse Ox O2 O2 Flow FiO2 Time Delivery Rate 11/12/18 64 20 97 Aerosol 5.0 08:16 T Tube 11/12/18 98.6 137/63 07:17 (87) 11/12/18 28 02:03 Intake and Output 11/11/18 11/11/18 11/12/18 1414:59 22:59 06:59 IntakeIntake Total 1200 ml 1440 ml 950 ml OutputOutput Total 1300 ml 1050 ml BalanceBalance 1200 ml 140 ml -100 ml Exam Free Text/Dictation Constitutional: alert, other; No distress Head: normocephalic, atraumatic Eyes: nl conjunctiva, nl lids, nl sclera ENMT: nl external ears & nose, nl lips & teeth, mucosa pink and moist Neck: non-tender Respiratory: normal air movement; No congested cough Cardiovascular: regular rate and rhythm, nl pulses; No edema Gastrointestinal: soft, non-tender; No distended Genitourinary - Female: nl adnexae, nl external genitalia Musculoskeletal: other; No muscle tone Extremities: normal pulses; No edema, No tenderness Neurological: No nl mental status, No nl speech, No nl strength Skin: other; sacral (minimal odor, moderate drainage, packed); right hip: (Exposed bone, minimal slough, minimal odor, moderate drainage) No rash or lesions, No diaphoresis Results Result Diagram: 11/10/18 0510 11/10/18 0510 JOSE ANTONIO MONTGOMERY NP Nov 12, 2018 10:47
--- NOTE | 2018-11-12 10:48 | CONS ---
Consult Date/Type/Reason Admit Date/Time Nov 08, 2018 at 03:55 Initial Consult Date 11/09/18 Type of Consultation: Pulm/CCM Requesting Provider: NADEEN CHO Date/Time of Note DATE: 11/12/18 TIME: 10:46 Subjective No acute events - pt comfortable -no P now - in good fluid status. ROS: no f/c/n/v/d - per nurse Objective Vitals Vital Signs Date Temp Pulse Resp B/P (MAP) Pulse Ox O2 O2 Flow FiO2 Time Delivery Rate 11/12/18 64 20 97 Aerosol 5.0 08:16 T Tube 11/12/18 98.6 137/63 07:17 (87) 11/12/18 28 02:03 Intake and Output 11/11/18 11/11/18 11/12/18 1515:00 23:00 07:00 IntakeIntake Total 1200 ml 1440 ml 950 ml OutputOutput Total 1300 ml 1050 ml BalanceBalance 1200 ml 140 ml -100 ml Exam General: WN/WD/NAD, AOx comfortable HEENT: Unicetric/atraumatic/EOMI (does not follow commands) NECK: trach Lymph: no lymphadenopathy HEART: regular with no S3, II/ systolic murmur at apex LUNGS: Coarse sounds ABD: soft, NT, ND, +BS : Intact Neuro: non focal SKIN: chronic changes EXT: trace edema Results/Medications Result Diagram: 11/10/18 0510 11/10/18 0510 Results 24 hrs Laboratory Tests Test 11/11/18 12:22 11/11/18 17:27 11/12/18 03:43 11/12/18 06:26 Bedside Glucose 112 118 132 131 Home Meds Reported Medications [Tramadol] No Conflict Check 06/26/13 [Oxybutynin] No Conflict Check 02/18/13 [Furosemide] No Conflict Check 02/18/13 [Atorvastatin] No Conflict Check 02/18/13 [Lorazepam] No Conflict Check 02/18/13 Estrogens Conjugated* (Premarin*) 0.45 Mg Tablet, 1.5 MG PO DAILY 02/18/13 Medications Current Medications Sodium Chloride 1,000 ml @ 50 mls/hr Q20H IV Last administered on 11/11/18at 09:12; Admin Dose 100 MLS/HR; Start 11/08/18 at 05:30 Acetaminophen (Tylenol Liquid) 650 mg Q6H PRN GTB PAIN AND/OR INFLAMMATION; Start 11/08/18 at 22:00 Albuterol (Proventil 0.083% (Neb)) 2.5 mg Q6H RESP THERAPY HHN Last administered on 11/12/18 08:14; Admin Dose 2.5 MG; Start 11/08/18 at 08:00 Ascorbic Acid (Vitamin C) 500 mg BID GTB Last administered on 11/11/18 21:16; Admin Dose 500 MG; Start 11/08/18 at 09:00 Aspirin (Aspirin) 81 mg BID GTB Last administered on 11/11/18 21:16; Admin Dose 81 MG; Start 11/08/18 at 09:00 Baclofen (Lioresal) 20 mg DAILY GTB Last administered on 11/11/18 08:56; Admin Dose 20 MG; Start 11/08/18 at 09:00 Cholecalciferol (Vitamin D) 2,000 unit DAILY GTB Last administered on 11/11/18 08:55; Admin Dose 2,000 UNIT; Start 11/08/18 at 09:00 Clonazepam (Klonopin) 0.5 mg BID GTB Last administered on 11/11/18 21:32; Admin Dose 0.5 MG; Start 11/08/18 at 09:00 Cyanocobalamin (Vitamin B12) 500 mcg DAILY GTB Last administered on 11/11/18 08:55; Admin Dose 500 MCG; Start 11/08/18 at 09:00 Acetaminophen/ Hydrocodone Bitart ([place] (5/325)) 1 tab Q4H PRN GTB MODERATE PAIN LEVEL 4-6; Start 11/08/18 at 04:30 Miscellaneous Information 1 ea NOTE XX ; Start 11/08/18 at 05:00 Ipratropium [place] (Atrovent 0.02% (Neb)) 0.5 mg Q6HWA RESP THERAPY HHN Last administered on 11/12/18 08:14; Admin Dose 0.5 MG; Start 11/08/18 at 08:00 Lactobacillus Acidophilus/ Rhamnosus (Culturelle) 1 cap BID GTB Last administered on 11/11/18 21:16; Admin Dose 1 CAP; Start 11/08/18 at 09:00 Lansoprazole (Prevacid) 30 mg BID@,18 GTB Last administered on 11/12/18 05:50; Admin Dose 30 MG; Start 11/08/18 at 06:00 Levetiracetam (Keppra Liquid) 500 mg BID GTB Last administered on 11/11/18 21:20; Admin Dose 500 MG; Start 11/08/18 at 09:00 Metoprolol Tartrate (Lopressor) 25 mg BID GTB Last administered on 11/11/18 21:16; Admin Dose 25 MG; Start 11/08/18 at 09:00 Multivitamins (Multivitamin) 30 ml DAILY GTB Last administered on 11/11/18 08:55; Admin Dose 30 ML; Start 11/08/18 at 09:00 Ondansetron HCl (Zofran Inj) 4 mg Q6H PRN IV NAUSEA AND/OR VOMITING; Start 11/08/18 at 05:30 Polyethylene Glycol (Miralax) 17 gm BID GTB Last administered on 11/11/18 21:17; Admin Dose 17 GM; Start 11/08/18 at 09:00 Sertraline HCl (Zoloft) 50 mg DAILY GTB Last administered on 11/11/18 08:56; Admin Dose 50 MG; Start 11/08/18 at 09:00 Sodium Hypochlorite (Dakins Diluted ()) 1 applic BID TP Last administered on 11/11/18 21:19; Admin Dose 1 APPLIC; Start 11/08/18 at 09:00 Zinc Sulfate (Zinc Sulfate) 220 mg DAILY GTB Last administered on 11/11/18 08:55; Admin Dose 220 MG; Start 11/08/18 at 09:00 Zolpidem Tartrate (Ambien) 5 mg HS PRN PO INSOMNIA; Start 11/08/18 at 05:30 Miscellaneous Information (Pending [facility] Order For Wound Care) This patient donato... PRN PRN XX WOUND CARE; Start 11/08/18 at 05:30 Metoprolol Tartrate (Lopressor) 5 mg Q4H IV Last administered on 11/10/18 17:5 4; Admin Dose 5 MG; Start 11/08/18 at 09:00 Miscellaneous Information 1 ea NOTE XX ; Start 11/08/18 at 08:00 Glucose (Glutose) 15 gm Q15M PRN PO DECREASED GLUCOSE; Start 11/08/18 at 08:00 Glucose (Glutose) 22.5 gm Q15M PRN PO DECREASED GLUCOSE; Start 11/08/18 at 08:00 Dextrose (D50w Syringe) 25 ml Q15M PRN IV DECREASED GLUCOSE; Start 11/08/18 at 08:00 Dextrose (D50w Syringe) 50 ml Q15M PRN IV DECREASED GLUCOSE; Start 11/08/18 at 08:00 Glucagon (Glucagen) 1 mg Q15M PRN IM DECREASED GLUCOSE; Start 11/08/18 at 08:00 Glucose (Glutose) 15 gm Q15M PRN BUCCAL DECREASED GLUCOSE; Start 11/08/18 at 08:00 IV Flush (NS 10 ml) 10 ml PRN PRN IV IV PROTOCOL; Start 11/08/18 at 18:00 Amiodarone HCl (Cordarone) 200 mg BID PO Last administered on 11/11/18at 21:15; Admin Dose 200 MG; Start 11/09/18 at 21:00 Lisinopril (Zestril) 2.5 mg DAILY GTB Last administered on 11/11/18at 08:58; Admin Dose 2.5 MG; Start 11/10/18 at 09:00 Sodium Hypochlorite (Dakins Diluted ()) 1 applic BID TP Last administered on 11/11/18at 08:59; Admin Dose 1 APPLIC; Start 11/09/18 at 21:00 Ciprofloxacin/ Dextrose 200 ml @ 200 mls/hr Q12 IVPB Last administered on 11/11/18at 21:17; Admin Dose 200 MLS/HR; Start 11/10/18 at 21:00 Insulin Aspart (Novolog Insulin Pen) NOVOLOG *MILD* ALGORI... Q6 SC ; Start 11/11/18 at 06:00 Assessment/Plan Hospital Course (Demo Recall) 1. Paroxysmal atrial fibrillation flutter with rapid ventricular response, currently in sinus rhythm but as of this morning was in rapid atrial fibrillation and flutter. Rate controlled - in sinus now. 2. Hypotension, borderline - BP stable - OK to hydrate clinically. 3. Congestive heart failure, systolic, acute on chronic - chronic. 4. Cardiomyopathy with mildly depressed left ventricular ejection fraction, last approximately 40% to 45% by echo 10/2018. 5. Encephalopathy, chronic - unchanged - opens eyes. 6. Progressive supranuclear palsy. 7. Anemia - no signs of bleeding now. 8. Diabetes mellitus. ZAHIRA RAJAN MD Nov 12, 2018 10:48
[2018-11-12] MEDS: DAKINS 0.0125%(1/40) 473 ML SOLUTION TP SCH ×4 (11:00→20:57)
--- NOTE | 2018-11-12 11:29 | CONS ---
Consult Date/Type/Reason Admit Date/Time Nov 08, 2018 at 03:55 Initial Consult Date 11/09/18 Type of Consult Pulmonary Requesting Provider: NADEEN CHO Date/Time of Note DATE: 11/12/18 TIME: 11:29 Subjective No significant changes. Patient remained stable. Objective Vital Signs Date Temp Pulse Resp B/P (MAP) Pulse Ox O2 O2 Flow FiO2 Time Delivery Rate 11/12/18 64 20 97 Aerosol 5.0 08:16 T Tube 11/12/18 98.6 137/63 07:17 (87) 11/12/18 28 02:03 Intake and Output 11/11/18 11/11/18 11/12/18 1515:00 23:00 07:00 IntakeIntake Total 1200 ml 1440 ml 950 ml OutputOutput Total 1300 ml 1050 ml BalanceBalance 1200 ml 140 ml -100 ml Exam GENERAL: Chronically ill-appearing lady VITAL SIGNS: per chart NECK: Supple. No JVD or lymphadenopathy. CARDIAC EXAM: S1, S2. No added sounds or murmurs. CHEST: Diminished air entry bilaterally ABDOMEN: Soft, nontender. No guarding or rebound. EXTREMITIES: No cyanosis, clubbing or edema. NEUROLOGIC: Generalized weakness. Contractures stage III-IV decubitus Vent Setting Fraction of Inspired Oxygen pe: 28 Results/Medications Result Diagram: 11/10/18 0510 11/10/18 0510 Results 24 hrs Laboratory Tests Test 11/11/18 12:22 11/11/18 17:27 11/12/18 03:43 11/12/18 06:26 Bedside Glucose 112 118 132 131 Medications Current Medications Sodium Chloride 1,000 ml @ 50 mls/hr Q20H IV Last administered on 11/11/18at 09:12; Admin Dose 100 MLS/HR; Start 11/08/18 at 05:30 Acetaminophen (Tylenol Liquid) 650 mg Q6H PRN GTB PAIN AND/OR INFLAMMATION; Start 11/08/18 at 22:00 Albuterol (Proventil 0.083% (Neb)) 2.5 mg Q6H RESP THERAPY HHN Last administered on 11/12/18at 08:14; Admin Dose 2.5 MG; Start 11/08/18 at 08:00 Ascorbic Acid (Vitamin C) 500 mg BID GTB Last administered on 11/11/18at 21:16; Admin Dose 500 MG; Start 11/08/18 at 09:00 Aspirin (Aspirin) 81 mg BID GTB Last administered on 11/11/18 21:16; Admin Dose 81 MG; Start 11/08/18 at 09:00 Baclofen (Lioresal) 20 mg DAILY GTB Last administered on 11/11/18 08:56; Admin Dose 20 MG; Start 11/08/18 at 09:00 Cholecalciferol (Vitamin D) 2,000 unit DAILY GTB Last administered on 11/11/18 08:55; Admin Dose 2,000 UNIT; Start 11/08/18 at 09:00 Clonazepam (Klonopin) 0.5 mg BID GTB Last administered on 11/11/18 21:32; Admin Dose 0.5 MG; Start 11/08/18 at 09:00 Cyanocobalamin (Vitamin B12) 500 mcg DAILY GTB Last administered on 11/11/18 08:55; Admin Dose 500 MCG; Start 11/08/18 at 09:00 Acetaminophen/ Hydrocodone Bitart ([place] (5/325)) 1 tab Q4H PRN GTB MODERATE PAIN LEVEL 4-6; Start 11/08/18 at 04:30 Miscellaneous Information 1 ea NOTE XX ; Start 11/08/18 at 05:00 Ipratropium [place] (Atrovent 0.02% (Neb)) 0.5 mg Q6HWA RESP THERAPY HHN Last administered on 11/12/18 08:14; Admin Dose 0.5 MG; Start 11/08/18 at 08:00 Lactobacillus Acidophilus/ Rhamnosus (Culturelle) 1 cap BID GTB Last administered on 11/11/18 21:16; Admin Dose 1 CAP; Start 11/08/18 at 09:00 Lansoprazole (Prevacid) 30 mg BID@,18 GTB Last administered on 11/12/18 05:50; Admin Dose 30 MG; Start 11/08/18 at 06:00 Levetiracetam (Keppra Liquid) 500 mg BID GTB Last administered on 11/11/18 21:20; Admin Dose 500 MG; Start 11/08/18 at 09:00 Metoprolol Tartrate (Lopressor) 25 mg BID GTB Last administered on 11/11/18 21:16; Admin Dose 25 MG; Start 11/08/18 at 09:00 Multivitamins (Multivitamin) 30 ml DAILY GTB Last administered on 11/11/18 08:5 5; Admin Dose 30 ML; Start 11/08/18 at 09:00 Ondansetron HCl (Zofran Inj) 4 mg Q6H PRN IV NAUSEA AND/OR VOMITING; Start 11/08/18 at 05:30 Polyethylene Glycol (Miralax) 17 gm BID GTB Last administered on 11/11/18 21:17; Admin Dose 17 GM; Start 11/08/18 at 09:00 Sertraline HCl (Zoloft) 50 mg DAILY GTB Last administered on 11/11/18 08:56; Admin Dose 50 MG; Start 11/08/18 at 09:00 Sodium Hypochlorite (Dakins Diluted ()) 1 applic BID TP Last administered on 11/11/18 21:19; Admin Dose 1 APPLIC; Start 11/08/18 at 09:00 Zinc Sulfate (Zinc Sulfate) 220 mg DAILY GTB Last administered on 11/11/18 08: 55; Admin Dose 220 MG; Start 11/08/18 at 09:00 Zolpidem Tartrate (Ambien) 5 mg HS PRN PO INSOMNIA; Start 11/08/18 at 05:30 Miscellaneous Information (Pending [facility] Order For Wound Care) This patient h a... PRN PRN XX WOUND CARE; Start 11/08/18 at 05:30 Metoprolol Tartrate (Lopressor) 5 mg Q4H IV Last administered on 11/10/18 17:54; Admin Dose 5 MG; Start 11/08/18 at 09:00 Miscellaneous Information 1 ea NOTE XX ; Start 11/08/18 at 08:00 Glucose (Glutose) 15 gm Q15M PRN PO DECREASED GLUCOSE; Start 11/08/18 at 08:00 Glucose (Glutose) 22.5 gm Q15M PRN PO DECREASED GLUCOSE; Start 11/08/18 at 08:00 Dextrose (D50w Syringe) 25 ml Q15M PRN IV DECREASED GLUCOSE; Start 11/08/18 at 08:00 Dextrose (D50w Syringe) 50 ml Q15M PRN IV DECREASED GLUCOSE; Start 11/08/18 at 08:00 Glucagon (Glucagen) 1 mg Q15M PRN IM DECREASED GLUCOSE; Start 11/08/18 at 08:00 Glucose (Glutose) 15 gm Q15M PRN BUCCAL DECREASED GLUCOSE; Start 11/08/18 at 08:00 IV Flush (NS 10 ml) 10 ml PRN PRN IV IV PROTOCOL; Start 11/08/18 at 18:00 Amiodarone HCl (Cordarone) 200 mg BID PO Last administered on 11/11/18at 21:15; Admin Dose 200 MG; Start 11/09/18 at 21:00 Lisinopril (Zestril) 2.5 mg DAILY GTB Last administered on 11/11/18at 08:58; Admin Dose 2.5 MG; Start 11/10/18 at 09:00 Sodium Hypochlorite (Dakins Diluted (40)) 1 applic BID TP Last administered on 11/11/18at 08:59; Admin Dose 1 APPLIC; Start 11/09/18 at 21:00 Ciprofloxacin/ Dextrose 200 ml @ 200 mls/hr Q12 IVPB Last administered on 11/11/18at 21:17; Admin Dose 200 MLS/HR; Start 11/10/18 at 21:00 Insulin Aspart (Novolog Insulin Pen) NOVOLOG *MILD* ALGORI... Q6 SC ; Start 11/11/18 at 06:00 Assessment/Plan Hospital Course (Demo Recall) IMP: 1. Severe Sepsis--2/2 wound infection 2. Afib with RVR 3. 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 Chronic encephalopathy 5. Seizure D/O 6. Dementia 7. Decubitus ulcers RECS: 1. Abx per ID 2. BD's/CPT/suctioning 3. Monitor on t-piece 4. Follow cultures 5. Wound care 6. Rate control 7. TF/Free H20 Consider PRBCs. JARED NICOLAS MD, [facility] Nov 12, 2018 11:29
--- NOTE | 2018-11-12 14:31 | PN ---
Date/Time of Note Date/Time of Note DATE: 11/12/18 TIME: 14:30 Assessment/Plan VTE Prophylaxis Risk score (from Ns)>0 risk: 8 SCD applied (from Ns): Yes Pharmacological prophylaxis: NA/contraindicated Pharm contraindication: surgical contra Lines/Catheters IV Catheter Type (from [facility]): Mid Line Urinary Cath still in place: Yes Reason Cath still needed: urinary retention Assessment/Plan Hospital Course Patient continues to be in sinus rhythm no arrhythmia, remains hemodynamically stable, transferred to [facility] when bed [facility] available. Assessment/Plan -Atrial fibrillation/ flutter with rapid ventricular response. Patient is currently in sinus rhythm. Continue amiodarone. Dr. Monson is following in cardiology consultation. -Progressive supranuclear palsy -Respiratory failure with tracheostomy patient is currently on cool aerosol mist. -Chronic encephalopathy -Decubitus ulcer of the right hip and sacrum, status post Girdlestone procedure of the right hip with flap in September 2018, followed by removal of necrotic tissue by Dr. Triplett at [facility]. -Right hip wound infection with OM of R hip, completed treatment with antibiotics. -Wound dehiscence, s/p repeat debridement at [facility] on 11/03/2018. -Diabetes -Chronic diastolic CHF -Dysphagia with GT -Anemia of chronic disease Further recommendations based on clinical course. Plan of care discussed with Dr. Shannon Result Diagram: 11/10/18 0510 11/10/18 0510 Results 24hrs Laboratory Tests Test 11/11/18 17:27 11/12/18 03:43 11/12/18 06:26 11/12/18 12:52 Bedside Glucose 118 132 131 148 Exam/Review of Systems Exam Vitals Vital Signs Date Temp Pulse Resp B/P (MAP) Pulse Ox O2 O2 Flow FiO2 Time Delivery Rate 11/12/18 5.0 28 13:40 11/12/18 20 100 Aerosol 13:31 T Tube 11/12/18 66 12:01 11/12/18 98.7 148/69 11:32 (95) Intake and Output 11/11/18 11/11/18 11/12/18 1515:00 23:00 07:00 IntakeIntake Total 1200 ml 1440 ml 950 ml OutputOutput Total 1300 ml 1050 ml BalanceBalance 1200 ml 140 ml -100 ml Exam Constitutional: non-verbal Neck: supple, other (trach) Respiratory: diminished breath sounds Cardiovascular: regular rate and rhythm Gastrointestinal: soft, non-tender, other (G- tube) Genitourinary - Female: other Extremities: other (contracted) Skin: other (Sacral and right hip wound) Results Results 24hrs Laboratory Tests Test 11/11/18 17:27 11/12/18 03:43 11/12/18 06:26 11/12/18 12:52 Bedside Glucose 118 132 131 148 Medications Medication Current Medications Sodium Chloride 1,000 ml @ 50 mls/hr Q20H IV Last administered on 11/11/18 09 :12; Admin Dose 100 MLS/HR; Start 11/08/18 at 05:30 Acetaminophen (Tylenol Liquid) 650 mg Q6H PRN GTB PAIN AND/OR INFLAMMATION; Start 11/08/18 at 22:00 Albuterol (Proventil 0.083% (Neb)) 2.5 mg Q6H RESP THERAPY HHN Last administered on 11/12/18 13:30; Admin Dose 2.5 MG; Start 11/08/18 at 08:00 Ascorbic Acid (Vitamin C) 500 mg BID GTB Last administered on 11/12/18 10:20; Admin Dose 500 MG; Start 11/08/18 at 09:00 Aspirin (Aspirin) 81 mg BID GTB Last administered on 11/12/18 10:20; Admin Dose 81 MG; Start 11/08/18 at 09:00 Baclofen (Lioresal) 20 mg DAILY GTB Last administered on 11/12/18 10:21; Admin Dose 20 MG; Start 11/08/18 at 09:00 Cholecalciferol (Vitamin D) 2,000 unit DAILY GTB Last administered on 11/12/18 10:21; Admin Dose 2,000 UNIT; Start 11/08/18 at 09:00 Clonazepam (Klonopin) 0.5 mg BID GTB Last administered on 11/12/18 10:21; Admin Dose 0.5 MG; Start 11/08/18 at 09:00 Cyanocobalamin (Vitamin B12) 500 mcg DAILY GTB Last administered on 11/12/18 10:22; Admin Dose 500 MCG; Start 11/08/18 at 09:00 Acetaminophen/ Hydrocodone Bitart ([place] (5/325)) 1 tab Q4H PRN GTB MODERATE PA IN LEVEL 4-6; Start 11/08/18 at 04:30 Miscellaneous Information 1 ea NOTE XX ; Start 11/08/18 at 05:00 Ipratropium [place] (Atrovent 0.02% (Neb)) 0.5 mg Q6HWA RESP THERAPY HHN Last administered on 11/12/18 13:30; Admin Dose 0.5 MG; Start 11/08/18 at 08:00 Lactobacillus Acidophilus/ Rhamnosus (Culturelle) 1 cap BID GTB Last administered on 11/12/18 10:21; Admin Dose 1 CAP; Start 11/08/18 at 09:00 Lansoprazole (Prevacid) 30 mg BID@,18 GTB Last administered on 11/12/18 05:50; Admin Dose 30 MG; Start 11/08/18 at 06:00 Levetiracetam (Keppra Liquid) 500 mg BID GTB Last administered on 11/12/18 10: 22; Admin Dose 500 MG; Start 11/08/18 at 09:00 Metoprolol Tartrate (Lopressor) 25 mg BID GTB Last administered on 11/11/18 21:16; Admin Dose 25 MG; Start 11/08/18 at 09:00 Multivitamins (Multivitamin) 30 ml DAILY GTB Last administered on 11/12/18 10:22; Admin Dose 30 ML; Start 11/08/18 at 09:00 Ondansetron HCl (Zofran Inj) 4 mg Q6H PRN IV NAUSEA AND/OR VOMITING; Start 11/08/18 at 05:30 Polyethylene Glycol (Miralax) 17 gm BID GTB Last administered on 11/12/18 10:22; Admin Dose 17 GM; Start 11/08/18 at 09:00 Sertraline HCl (Zoloft) 50 mg DAILY GTB Last administered on 11/12/18 10:20; Admin Dose 50 MG; Start 11/08/18 at 09:00 Sodium Hypochlorite (Dakins Diluted ()) 1 applic BID TP Last administered on 11/12/18 11:00; Admin Dose 1 APPLIC; Start 11/08/18 at 09:00 Zinc Sulfate (Zinc Sulfate) 220 mg DAILY GTB Last administered on 11/12/18at 10:20; Admin Dose 220 MG; Start 11/08/18 at 09:00 Zolpidem Tartrate (Ambien) 5 mg HS PRN PO INSOMNIA; Start 11/08/18 at 05:30 Miscellaneous Information (Pending [facility] Order For Wound Care) This patient donato... PRN PRN XX WOUND CARE; Start 11/08/18 at 05:30 Metoprolol Tartrate (Lopressor) 5 mg Q4H IV Last administered on 11/10/18at 17:54; Admin Dose 5 MG; Start 11/08/18 at 09:00 Miscellaneous Information 1 ea NOTE XX ; Start 11/08/18 at 08:00 Glucose (Glutose) 15 gm Q15M PRN PO DECREASED GLUCOSE; Start 11/08/18 at 08:00 Glucose (Glutose) 22.5 gm Q15M PRN PO DECREASED GLUCOSE; Start 11/08/18 at 08:00 Dextrose (D50w Syringe) 25 ml Q15M PRN IV DECREASED GLUCOSE; Start 11/08/18 at 08:00 Dextrose (D50w Syringe) 50 ml Q15M PRN IV DECREASED GLUCOSE; Start 11/08/18 at 08:00 Glucagon (Glucagen) 1 mg Q15M PRN IM DECREASED GLUCOSE; Start 11/08/18 at 08:00 Glucose (Glutose) 15 gm Q15M PRN BUCCAL DECREASED GLUCOSE; Start 11/08/18 at 08:00 IV Flush (NS 10 ml) 10 ml PRN PRN IV IV PROTOCOL; Start 11/08/18 at 18:00 Amiodarone HCl (Cordarone) 200 mg BID PO Last administered on 11/12/18at 10:22; Admin Dose 200 MG; Start 11/09/18 at 21:00 Lisinopril (Zestril) 2.5 mg DAILY GTB Last administered on 11/12/18at 10:20; Admin Dose 2.5 MG; Start 11/10/18 at 09:00 Sodium Hypochlorite (Dakins Diluted ()) 1 applic BID TP Last administered on 11/12/18at 11:00; Admin Dose 1 APPLIC; Start 11/09/18 at 21:00 Ciprofloxacin/ Dextrose 200 ml @ 200 mls/hr Q12 IVPB Last administered on 11/12/18at 10:22; Admin Dose 200 MLS/HR; Start 11/10/18 at 21:00 Insulin Aspart (Novolog Insulin Pen) NOVOLOG *MILD* ALGORI... Q6 SC ; Start 11/11/18 at 06:00 LUIZ BRANNON Nov 12, 2018 14:31
--- NOTE | 2018-11-12 16:15 | CONS ---
Assessment/Plan Assessment/Plan Hospital Course (Demo Recall) # infection of wound, OM of R hip - colonization of the wound of R hip by pseudomonas (wound culture on 10/31/2018) - s/p repeat debridement at [facility] on 11/03/[address]. [address] Pierson, the wound appeared clean during the I&D (my conversation with him on 11/06/2018) - H/o stage sacral decubitus ulcer extending to bilateral buttocks. She reportedly had total hip dislocation and exposed femoral head. CT pelvis showed e/o OM. Pt complete IV vancomycin (09/17/2018-10/29/2018) for sacral OM associated with E. faecalis - H/o sharp excisional debridement down to and including bone of the sacrum on 08/22/2018 and 09/19/2018 - H/o excision of R hip ulcer, girdlestone resection arthroplasty and flap reconstruction 09/23/2018. The surgical pathology showed osteomyelitis of R hip bone, soft tissue cellulitis, and bony margin of excision was free of the disease - XR of R hip on 11/09/2009 showed the remaining R femoral shaft in transverse orientation and with lateral deviation - h/o removal of devitalized/necrotic tissue by Dr. Pierson on 10/07/2018 # sepsis, endovascular infection, respiratory - colonization of the airway by pseudomonas - h/o sepsis due to bacteremia and pneumonia - h/o bacteremia: blood cultures grew enterococcus faecalis on 09/17/2018 secondary to R hip wound infection as its wound culture on 09/16/2018 grew E. faecalis as well - H/o recurrent acute on chronic hypoxemic respiratory failure secondary to secretion retention, mucous plugging, major left lung atelectasis, severe shunting - h/o probable aspiration pneumonia. - h/o pneumonia due to pseudomonas on 09/30/2018. s/p Levaquin (10/03/18- 10/07/2018), Meropenem (restart 09/30/2018-10/03/18, 10/12/18 - 10/19/2018) and empiric Amikacin (09/30/18-10/03/18) - H/o intubation on 09/30/2018 - H/o tracheostomy on 10/04/2018 - h/o pseudomonas in urine culture on 09/17/2018 with mild pyuria; treated with Cefepime (09/20/2018-09/25/2018) # renal/ - H/o moderate L hydronephrosis per renal US - funguria, recurrent # heme/neuro - H/o acute on chronic anemia requiring PRBC - Metabolic encephalopathy - Supranuclear palsy # endo, cardiac - Diabetes Mellitus - A fib with RVR - Chronic diastolic HF (EF 40-45% with grade 1 DD per 2D Echo 10/24/2018) - H/o hypertension # allergy - Penicillin allergy (throat swelling) but Pt tolerated cefepime and ceftazidime - Resulted: [id number] <31 Recommendations: - according to Dr. Pierson who performed the wound debridement, Pt needs wound care until granulation tissue builds and infection is cleared. Then he would decide if Pt should get repeat closure or not - wound care by Dr. Jesus Wiggins - consider orthopedic consult because the remaining R femoral shaft was in transverse orientation and with lateral deviation on XR Consultation Date/Type/Reason Admit Date/Time Nov 08, 2018 at 03:55 Initial Consult Date 11/09/18 Requesting Provider: NADEEN CHO Date/Time of Note DATE: 11/12/18 TIME: 16:13 Exam/Review of Systems Exam Vitals Vital Signs Date Temp Pulse Resp B/P (MAP) Pulse Ox O2 O2 Flow FiO2 Time Delivery Rate 11/12/18 98.6 70 16 107/56 97 15:19 (73) 11/12/18 5.0 28 13:40 11/12/18 Aerosol 13:31 T Tube Intake and Output 11/11/18 11/11/18 11/12/18 1515:00 23:00 07:00 IntakeIntake Total 1200 ml 1440 ml 950 ml OutputOutput Total 1300 ml 1050 ml BalanceBalance 1200 ml 140 ml -100 ml Exam sleeping peacefully Results Result Diagram: 11/10/18 0510 11/10/18 0510 Results 24hrs Laboratory Tests Test 11/11/18 17:27 11/12/18 03:43 11/12/18 06:26 11/12/18 12:52 Bedside Glucose 118 132 131 148 Medications Medication Current Medications Sodium Chloride 1,000 ml @ 50 mls/hr Q20H IV Last administered on 11/11/18at 09:12; Admin Dose 100 MLS/HR; Start 11/08/18 at 05:30 Acetaminophen (Tylenol Liquid) 650 mg Q6H PRN GTB PAIN AND/OR INFLAMMATION; Start 11/08/18 at 22:00 Albuterol (Proventil 0.083% (Neb)) 2.5 mg Q6H RESP THERAPY HHN Last administered on 11/12/18 13:30; Admin Dose 2.5 MG; Start 11/08/18 at 08:00 Ascorbic Acid (Vitamin C) 500 mg BID GTB Last administered on 11/12/18 10:20; Admin Dose 500 MG; Start 11/08/18 at 09:00 Aspirin (Aspirin) 81 mg BID GTB Last administered on 11/12/18 10:20; Admin Dose 81 MG; Start 11/08/18 at 09:00 Baclofen (Lioresal) 20 mg DAILY GTB Last administered on 11/12/18 10:21; Admin Dose 20 MG; Start 11/08/18 at 09:00 Cholecalciferol (Vitamin D) 2,000 unit DAILY GTB Last administered on 11/12/18 10:21; Admin Dose 2,000 UNIT; Start 11/08/18 at 09:00 Clonazepam (Klonopin) 0.5 mg BID GTB Last administered on 11/12/18 10:21; Admin Dose 0.5 MG; Start 11/08/18 at 09:00 Cyanocobalamin (Vitamin B12) 500 mcg DAILY GTB Last administered on 11/12/18 10:22; Admin Dose 500 MCG; Start 11/08/18 at 09:00 Acetaminophen/ Hydrocodone Bitart ([place] (5/325)) 1 tab Q4H PRN GTB MODERATE PAIN LEVEL 4-6; Start 11/08/18 at 04:30 Miscellaneous Information 1 ea NOTE XX ; Start 11/08/18 at 05:00 Ipratropium [place] (Atrovent 0.02% (Neb)) 0.5 mg Q6HWA RESP THERAPY HHN Last administered on 11/12/18 13:30; Admin Dose 0.5 MG; Start 11/08/18 at 08:00 Lactobacillus Acidophilus/ Rhamnosus (Culturelle) 1 cap BID GTB Last administered on 11/12/18 10:21; Admin Dose 1 CAP; Start 11/08/18 at 09:00 Lansoprazole (Prevacid) 30 mg BID@,18 GTB Last administered on 11/12/18 05:50; Admin Dose 30 MG; Start 11/08/18 at 06:00 Levetiracetam (Keppra Liquid) 500 mg BID GTB Last administered on 11/12/18 10:22; Admin Dose 500 MG; Start 11/08/18 at 09:00 Metoprolol Tartrate (Lopressor) 25 mg BID GTB Last administered on 11/11/18 21:16; Admin Dose 25 MG; Start 11/08/18 at 09:00 Multivitamins (Multivitamin) 30 ml DAILY GTB Last administered on 11/12/18 10:22; Admin Dose 30 ML; Start 11/08/18 at 09:00 Ondansetron HCl (Zofran Inj) 4 mg Q6H PRN IV NAUSEA AND/OR VOMITING; Start 11/08/18 at 05:30 Polyethylene Glycol (Miralax) 17 gm BID GTB Last administered on 11/12/18 10:22; Admin Dose 17 GM; Start 11/08/18 at 09:00 Sertraline HCl (Zoloft) 50 mg DAILY GTB Last administered on 11/12/18 10:20; Admin Dose 50 MG; Start 11/08/18 at 09:00 Sodium Hypochlorite (Dakins Diluted (1/40)) 1 applic BID TP Last administered on 11/12/18 11:00; Admin Dose 1 APPLIC; Start 11/08/18 at 09:00 Zinc Sulfate (Zinc Sulfate) 220 mg DAILY GTB Last administered on 11/12/18 10:20; Admin Dose 220 MG; Start 11/08/18 at 09:00 Zolpidem Tartrate (Ambien) 5 mg HS PRN PO INSOMNIA; Start 11/08/18 at 05:30 Miscellaneous Information (Pending [facility] Order For Wound Care) This patient donato... PRN PRN XX WOUND CARE; Start 11/08/18 at 05:30 Metoprolol Tartrate (Lopressor) 5 mg Q4H IV Last administered on 11/10/18 17:54; Admin Dose 5 MG; Start 11/08/18 at 09:00 Miscellaneous Information 1 ea NOTE XX ; Start 11/08/18 at 08:00 Glucose (Glutose) 15 gm Q15M PRN PO DECREASED GLUCOSE; Start 11/08/18 at 08:00 Glucose (Glutose) 22.5 gm Q15M PRN PO DECREASED GLUCOSE; Start 11/08/18 at 08:00 Dextrose (D50w Syringe) 25 ml Q15M PRN IV DECREASED GLUCOSE; Start 11/08/18 at 08:00 Dextrose (D50w Syringe) 50 ml Q15M PRN IV DECREASED GLUCOSE; Start 11/08/18 at 08:00 Glucagon (Glucagen) 1 mg Q15M PRN IM DECREASED GLUCOSE; Start 11/08/18 at 08:00 Glucose (Glutose) 15 gm Q15M PRN BUCCAL DECREASED GLUCOSE; Start 11/08/18 at 08:00 IV Flush (NS 10 ml) 10 ml PRN PRN IV IV PROTOCOL; Start 11/08/18 at 18:00 Amiodarone HCl (Cordarone) 200 mg BID PO Last administered on 11/12/18at 10:22; Admin Dose 200 MG; Start 11/09/18 at 21:00 Lisinopril (Zestril) 2.5 mg DAILY GTB Last administered on 11/12/18at 10:20; Ad min Dose 2.5 MG; Start 11/10/18 at 09:00 Sodium Hypochlorite (Dakins Diluted (40)) 1 applic BID TP Last administered on 11/12/18at 11:00; Admin Dose 1 APPLIC; Start 11/09/18 at 21:00 Ciprofloxacin/ Dextrose 200 ml @ 200 mls/hr Q12 IVPB Last administered on 11/12/18at 10:22; Admin Dose 200 MLS/HR; Start 11/10/18 at 21:00 Insulin Aspart (Novolog Insulin Pen) NOVOLOG *MILD* ALGORI... Q6 SC ; Start 11/11 at 06:00 KASH MONDRAGON MD Nov 12, 2018 16:15
[2018-11-13] VITALS (10 sets, daily range): BP systolic 106–139; BP diastolic 51–77; PULSE 59–79; RESP 17–20
[2018-11-13] MEDS: INSULIN ASPART [NOVOLOG] 3 ML PEN SC SCH ×5 (00:15→23:51)
[2018-11-13] MEDS: METOPROLOL 5 MG INJ IV SCH ×6 (01:00→22:06)
[2018-11-13] MEDS: SOD CHLORIDE 0.9% 1,000 ML IV SCH ×2 (01:17→23:43)
[2018-11-13] MEDS: ALBUTEROL 0.083% (NEB) 2.5 MG/3 ML AMP HHN SCH ×4 (01:22→20:08)
[2018-11-13] MEDS: LANSOPRAZOLE 30 MG CAP GTB SCH ×2 (05:30→17:35)
[2018-11-13] MEDS: IPRATROPIUM (NEB) 0.5 MG/2.5 ML AMP HHN SCH ×3 (08:08→20:08)
[2018-11-13] MEDS: DAKINS 0.0125%(1/40) 473 ML SOLUTION TP SCH ×2 (09:00→22:07)
--- NOTE | 2018-11-13 09:20 | CONS ---
Assessment/Plan Assessment/Plan Hospital Course (Demo Recall) # infection of wound, OM of R hip - colonization of the wound of R hip by pseudomonas (wound culture on 10/31/2018) - s/p repeat debridement at [facility] on 11/03/[address]. [address] Pierson, the wound appeared clean during the I&D (my conversation with him on 11/06/2018) - H/o stage sacral decubitus ulcer extending to bilateral buttocks. She reportedly had total hip dislocation and exposed femoral head. CT pelvis showed e/o OM. Pt complete IV vancomycin (09/17/2018-10/29/2018) for sacral OM associated with E. faecalis - H/o sharp excisional debridement down to and including bone of the sacrum on 08/22/2018 and 09/19/2018 - H/o excision of R hip ulcer, girdlestone resection arthroplasty and flap reconstruction 09/23/2018. The surgical pathology showed osteomyelitis of R hip bone, soft tissue cellulitis, and bony margin of excision was free of the disease - XR of R hip on 11/09/2009 showed the remaining R femoral shaft in transverse orientation and with lateral deviation - h/o removal of devitalized/necrotic tissue by Dr. Pierson on 10/07/2018 # sepsis, endovascular infection, respiratory - colonization of the airway by pseudomonas - tracheal aspirate 11/08/18 grew pseudomonas - h/o sepsis due to bacteremia and pneumonia - h/o bacteremia: blood cultures grew enterococcus faecalis on 09/17/2018 secondary to R hip wound infection as its wound culture on 09/16/2018 grew E. faecalis as well - H/o recurrent acute on chronic hypoxemic respiratory failure secondary to secretion retention, mucous plugging, major left lung atelectasis, severe shunting - h/o probable aspiration pneumonia. - h/o pneumonia due to pseudomonas on 09/30/2018. s/p Levaquin (10/03/18- 10/07/2018), Meropenem (restart 09/30/2018-10/03/18, 10/12/18 - 10/19/2018) and empiric Amikacin (09/30/18-10/03/18) - H/o intubation on 09/30/2018 - H/o tracheostomy on 10/04/2018 - h/o pseudomonas in urine culture on 09/17/2018 with mild pyuria; treated with Cefepime (09/20/2018-09/25/2018) # renal/ - H/o moderate L hydronephrosis per renal US - funguria, recurrent # heme/neuro - H/o acute on chronic anemia requiring PRBC - Metabolic encephalopathy - Supranuclear palsy # endo, cardiac - Diabetes Mellitus - A fib with RVR - Chronic diastolic HF (EF 40-45% with grade 1 DD per 2D Echo 10/24/2018) - H/o hypertension # allergy - Penicillin allergy (throat swelling) but Pt tolerated cefepime and ceftazidime - Resulted: [id number] <31 Recommendations: - according to Dr. Pierson who performed the wound debridement, Pt needs wound care until granulation tissue builds and infection is cleared. Then he would decide if Pt should get repeat closure or not - wound care by Dr. Jesus Wiggins - consider orthopedic consult because the remaining R femoral shaft was in transverse orientation and with lateral deviation on XR Plan was d/w patient's RN at the bedside and with Dr. Breaux. Thank you Consultation Date/Type/Reason Admit Date/Time Nov 08, 2018 at 03:55 Initial Consult Date 11/09/18 Type of Consult ID Requesting Provider: NADEEN CHO Date/Time of Note DATE: 11/13/18 TIME: 09:13 24 HR Interval Summary Free Text/Dictation Per d/w patient's RN at the bedside, she has remained afebrile, low grade temp 99.5 this am. There is possible plan for transfer to [place]. Patient is unable to contribute to ROS d/t chronic encephalopathy. Exam/Review of Systems Exam Vitals Vital Signs Date Temp Pulse Resp B/P (MAP) Pulse Ox O2 O2 Flow FiO2 Time Delivery Rate 11/13/18 66 08:34 11/13/18 16 96 Aerosol 5.0 28 08:08 T Tube 11/13/18 98.4 106/57 07:26 (73) Intake and Output 11/12/18 11/12/18 11/13/18 1515:00 23:00 07:00 IntakeIntake Total 1300 ml 1960 ml OutputOutput Total 1800 ml 1000 ml BalanceBalance -500 ml 960 ml Allergies Coded Allergies Penicillins (Verified Allergy, Unknown, 07/06/13) morphine (Verified Adverse Reaction, Mild, "LOOPY", 10/08/18) Uncoded Allergies PLASTIC TAPE ( Allergy, Unknown, 04/01/07) . Exam Constitutional: non-verbal, frail, other (chronically debilitated ) Psych: confusion Head: normocephalic, atraumatic Eyes: nl conjunctiva, nl lids, nl sclera ENMT: nl external ears & nose, nl nasal mucosa & septum, mucosa pink and moist (OP exam limited, no thrush on limited exam.) Neck: supple, non-tender, other (trach midline, site c/d/i, on vent.) Respiratory: normal air movement, diminished breath sounds (bilaterally, anteriorly); No wheezing Cardiovascular: regular rate and rhythm, nl pulses Gastrointestinal: soft, non-tender, other (GT site is c/d/i, connected to TF.) Genitourinary - Female: other (+F/c draining yellow urine. ) Musculoskeletal: other (Contractures) Extremities: normal pulses; No edema Neurological: other (eyes open without eye tracking, no following of commands or attempts to communicate) Skin: nl turgor, other (Reviewed nsg notes/pictures of R hip wound); No rash or lesions Results Result Diagram: 11/10/18 0510 11/10/18 0510 Results 24hrs Laboratory Tests Test 11/12/18 12:52 11/12/18 17:50 11/13/18 00:09 11/13/18 05:29 Bedside Glucose 148 119 159 [address] CT 11/10/18 IMPRESSION: 1. Deep decubitus ulcer over the mid and lower sacrum with complete bony destruction of the mid and lower sacrum and most of the coccyx in keeping with osteomyelitis. There is a mild inflammatory phlegmon in the presacral space w ithout an organized abscess. 2. Status post right hip Girdlestone procedure. The proximal right femoral stump is dislocated from the acetabulum and rotated 90 degrees and protrudes into the subcutaneous fat at the site of the skin defect. There is a deep decubitus ulcer in this location. Periosteal reaction along the femoral stump is concerning for osteomyelitis. 3. Heterotopic ossification/dystrophic calcification in the soft tissues at the site of the resected proximal right femur. There is chronic bony remodelling of the right acetabulum. 4. Rectal stool ball measures 7.2 cm and there is constipation in the more upstream colon. Recommend disimpaction. Medications Medication Current Medications Sodium Chloride 1,000 ml @ 50 mls/hr Q20H IV Last administered on 11/13/18 01:17; Admin Dose 50 MLS/HR; Start 11/08/18 at 05:30 Acetaminophen (Tylenol Liquid) 650 mg Q6H PRN GTB PAIN AND/OR INFLAMMATION; Start 11/08/18 at 22:00 Albuterol (Proventil 0.083% (Neb)) 2.5 mg Q6H RESP THERAPY HHN Last administered on 11/13/18 08:08; Admin Dose 2.5 MG; Start 11/08/18 at 08:00 Ascorbic Acid (Vitamin C) 500 mg BID GTB Last administered on 11/12/18 20:45; Admin Dose 500 MG; Start 11/08/18 at 09:00 Aspirin (Aspirin) 81 mg BID GTB Last administered on 11/12/18 20:45; Admin Dose 81 MG; Start 11/08/18 at 09:00 Baclofen (Lioresal) 20 mg DAILY GTB Last administered on 11/12/18 10:21; Admin Dose 20 MG; Start 11/08/18 at 09:00 Cholecalciferol (Vitamin D) 2,000 unit DAILY GTB Last administered on 11/12/18 10:21; Admin Dose 2,000 UNIT; Start 11/08/18 at 09:00 Clonazepam (Klonopin) 0.5 mg BID GTB Last administered on 11/12/18 20:45; Admin Dose 0.5 MG; Start 11/08/18 at 09:00 Cyanocobalamin (Vitamin B12) 500 mcg DAILY GTB Last administered on 11/12/18 10:22; Admin Dose 500 MCG; Start 11/08/18 at 09:00 Acetaminophen/ Hydrocodone Bitart ([place] (5/325)) 1 tab Q4H PRN GTB MODERATE PAIN LEVEL 4-6; Start 11/08/18 at 04:30 Miscellaneous Information 1 ea NOTE XX ; Start 11/08/18 at 05:00 Ipratropium [place] (Atrovent 0.02% (Neb)) 0.5 mg Q6HWA RESP THERAPY HHN Last administered on 11/13/18 08:08; Admin Dose 0.5 MG; Start 11/08/18 at 08:00 Lactobacillus Acidophilus/ Rhamnosus (Culturelle) 1 cap BID GTB Last administered on 11/12/18 20:46; Admin Dose 1 CAP; Start 11/08/18 at 09:00 Lansoprazole (Prevacid) 30 mg BID@,18 GTB Last administered on 11/13/18 05:30; Admin Dose 30 MG; Start 11/08/18 at 06:00 Levetiracetam (Keppra Liquid) 500 mg BID GTB Last administered on 11/12/18 20:45; Admin Dose 500 MG; Start 11/08/18 at 09:00 Metoprolol Tartrate (Lopressor) 25 mg BID GTB Last administered on 11/12/18 20:56; Admin Dose 25 MG; Start 11/08/18 at 09:00 Multivitamins (Multivitamin) 30 ml DAILY GTB Last administered on 11/12/18 10:22; Admin Dose 30 ML; Start 11/08/18 at 09:00 Ondansetron HCl (Zofran Inj) 4 mg Q6H PRN IV NAUSEA AND/OR VOMITING; Start 11/08/18 at 05:30 Polyethylene Glycol (Miralax) 17 gm BID GTB Last administered on 11/12/18 20:45; Admin Dose 17 GM; Start 11/08/18 at 09:00 Sertraline HCl (Zoloft) 50 mg DAILY GTB Last administered on 11/12/18 10:20; Admin Dose 50 MG; Start 11/08/18 at 09:00 Sodium Hypochlorite (Dakins Diluted (40)) 1 applic BID TP Last administered on 11/12/18 20:57; Admin Dose 1 APPLIC; Start 11/08/18 at 09:00 Zinc Sulfate (Zinc Sulfate) 220 mg DAILY GTB Last administered on 11/12/18 10:20; Admin Dose 220 MG; Start 11/08/18 at 09:00 Zolpidem Tartrate (Ambien) 5 mg HS PRN PO INSOMNIA; Start 11/08/18 at 05:30 Miscellaneous Information (Pending [facility] Order For Wound Care) This patient donato... PRN PRN XX WOUND CARE; Start 11/08/18 at 05:30 Metoprolol Tartrate (Lopressor) 5 mg Q4H IV Last administered on 11/10/18at 17:54; Admin Dose 5 MG; Start 11/08/18 at 09:00 Miscellaneous Information 1 ea NOTE XX ; Start 11/08/18 at 08:00 Glucose (Glutose) 15 gm Q15M PRN PO DECREASED GLUCOSE; Start 11/08/18 at 08:00 Glucose (Glutose) 22.5 gm Q15M PRN PO DECREASED GLUCOSE; Start 11/08/18 at 08:00 Dextrose (D50w Syringe) 25 ml Q15M PRN IV DECREASED GLUCOSE; Start 11/08/18 at 08:00 Dextrose (D50w Syringe) 50 ml Q15M PRN IV DECREASED GLUCOSE; Start 11/08/18 at 08:00 Glucagon (Glucagen) 1 mg Q15M PRN IM DECREASED GLUCOSE; Start 11/08/18 at 08:00 Glucose (Glutose) 15 gm Q15M PRN BUCCAL DECREASED GLUCOSE; Start 11/08/18 at 08:00 IV Flush (NS 10 ml) 10 ml PRN PRN IV IV PROTOCOL; Start 11/08/18 at 18:00 Amiodarone HCl (Cordarone) 200 mg BID PO Last administered on 11/12/18 20:56; Admin Dose 200 MG; Start 11/09/18 at 21:00 Lisinopril (Zestril) 2.5 mg DAILY GTB Last administered on 11/12/18 10:20; A dmin Dose 2.5 MG; Start 11/10/18 at 09:00 Sodium Hypochlorite (Dakins Diluted ()) 1 applic BID TP Last administered on 11/12/18at 20:57; Admin Dose 1 APPLIC; Start 11/09/18 at 21:00 Ciprofloxacin/ Dextrose 200 ml @ 200 mls/hr Q12 IVPB Last administered on 11/12/18 20:45; Admin Dose 200 MLS/HR; Start 11/10/18 at 21:00 Insulin Aspart (Novolog Insulin Pen) NOVOLOG *MILD* ALGORI... Q6 SC Last admin istered on 11/13/18 05:40; Admin Dose 2 UNIT; Start 11/11/18 at 06:00 ZENON RUDOLPH NP Nov 13, 2018 09:20
[2018-11-13] MEDS: CIPROFLOXACIN 400MG/D5W 200 ML IVPB SCH ×2 (09:34→21:53)
[2018-11-13] MEDS: POLYETHYLENE GLYCOL 17 GM PACKET GTB SCH ×2 (09:34→21:58)
[2018-11-13] MEDS: LEVETIRACETAM (100 MG/ML) 5ML CUP GTB SCH ×2 (09:34→21:54)
[2018-11-13] MEDS: MULTIVITAMINS 30 ML CUP GTB SCH (09:34)
[2018-11-13] MEDS: CHOLECALCIFEROL 2,000 UNIT CAP GTB SCH (09:34)
[2018-11-13] MEDS: LACTOBACILLUS RHAMNOSUS CAP GTB SCH ×2 (09:35→21:57)
[2018-11-13] MEDS: CYANOCOBALAMIN 500 MCG TAB GTB SCH (09:36)
[2018-11-13] MEDS: SERTRALINE 50 MG TAB GTB SCH (09:36)
[2018-11-13] MEDS: METOPROLOL 25 MG TAB GTB SCH ×2 (09:36→22:06)
[2018-11-13] MEDS: ASPIRIN 81 MG TAB GTB SCH ×2 (09:36→21:57)
[2018-11-13] MEDS: AMIODARONE 200 MG TAB PO SCH ×2 (09:37→22:07)
[2018-11-13] MEDS: LISINOPRIL 5 MG TAB GTB SCH (09:37)
[2018-11-13] MEDS: BACLOFEN 10 MG TAB GTB SCH (09:38)
[2018-11-13] MEDS: ASCORBIC ACID 500 MG TAB GTB SCH ×2 (09:38→21:57)
[2018-11-13] MEDS: ZINC SULFATE 220 MG CAP GTB SCH (09:43)
[2018-11-13] MEDS: clonAZEPAM 0.5 MG TAB GTB SCH ×2 (09:43→22:05)
--- NOTE | 2018-11-13 11:10 | CONS ---
Assessment/Plan Assessment/Plan Hospital Course (Demo Recall) IMPRESSION: 1. Paroxysmal atrial fibrillation flutter with rapid ventricular response, currently in sinus rhythm but as of this morning was in rapid atrial fibrillation and flutter. 2. Hypotension, borderline. 3. Congestive heart failure, systolic, acute on chronic. 4. Cardiomyopathy with mildly depressed left ventricular ejection fraction, last approximately 40% to 45% by echo 10/2018. 5. Encephalopathy, chronic. 6. Progressive supranuclear palsy. 7. Anemia. 8. Diabetes mellitus. Recc: -ICU -Continue po amio now in attempt to maintain SR -BB/ACEI as tolerated only -Follow volume status closely -pulmonary toliet Consultation Date/Type/Reason Admit Date/Time Nov 08, 2018 at 03:55 Initial Consult Date 11/08/18 Type of Consult Cardiology Reason for Consultation PAF Requesting Provider: NADEEN CHO Date/Time of Note DATE: 11/13/18 TIME: 11:08 Exam/Review of Systems Vital Signs Vitals Vital Signs Date Temp Pulse Resp B/P (MAP) Pulse Ox O2 O2 Flow FiO2 Time Delivery Rate 11/13/18 66 08:34 11/13/18 16 96 Aerosol 5.0 28 08:08 T Tube 11/13/18 98.4 106/57 07:26 (73) Intake and Output 11/12/18 11/12/18 11/13/18 1515:00 23:00 07:00 IntakeIntake Total 1300 ml 1960 ml OutputOutput Total 1800 ml 1000 ml BalanceBalance -500 ml 960 ml Exam Exam Review of Systems: CONSTITUTIONAL: No fevers, chills. PULMONARY: No sob CARDIOVASCULAR: No chest pain/palpitations GASTROINTESTINAL: No nausea/vomiting. GENITOURINARY: No hematuria/dysuria. MUSCULOSKELETAL: No myagias/arthalgias. PSYCHIATRIC: The patient denies depression. NEUROLOGIC: No weakness Constitutional: alert Psych: no complaints Head: normocephalic ENMT: mucosa pink and moist Neck: supple, jvd Respiratory: diminished breath sounds Cardiovascular: regular rate and rhythm Gastrointestinal: soft, non-tender Musculoskeletal: muscle weakness (generalized) Extremities: edema (none) Neurological: other (No focal deficits) Labs Result Diagram: 11/10/18 0510 11/10/18 0510 Results 24hrs Laboratory Tests Test 11/12/18 12:52 11/12/18 17:50 11/13/18 00:09 11/13/18 05:29 Bedside Glucose 148 119 159 187 Medications Medications Current Medications Sodium Chloride 1,000 ml @ 50 mls/hr Q20H IV Last administered on 11/13/18 01:17; Admin Dose 50 MLS/HR; Start 11/08/18 at 05:30 Acetaminophen (Tylenol Liquid) 650 mg Q6H PRN GTB PAIN AND/OR INFLAMMATION; Start 11/08/18 at 22:00 Albuterol (Proventil 0.083% (Neb)) 2.5 mg Q6H RESP THERAPY HHN Last administered on 11/13/18 08:08; Admin Dose 2.5 MG; Start 11/08/18 at 08:00 Ascorbic Acid (Vitamin C) 500 mg BID GTB Last administered on 11/13/18 09:38; Admin Dose 500 MG; Start 11/08/18 at 09:00 Aspirin (Aspirin) 81 mg BID GTB Last administered on 11/13/18 09:36; Admin Dose 81 MG; Start 11/08/18 at 09:00 Baclofen (Lioresal) 20 mg DAILY GTB Last administered on 11/13/18 09:38; Admin Dose 20 MG; Start 11/08/18 at 09:00 Cholecalciferol (Vitamin D) 2,000 unit DAILY GTB Last administered on 11/13/18 09:34; Admin Dose 2,000 UNIT; Start 11/08/18 at 09:00 Clonazepam (Klonopin) 0.5 mg BID GTB Last administered on 11/13/18 09:43; Admin Dose 0.5 MG; Start 11/08/18 at 09:00 Cyanocobalamin (Vitamin B12) 500 mcg DAILY GTB Last administered on 11/13/18 09:36; Admin Dose 500 MCG; Start 11/08/18 at 09:00 Acetaminophen/ Hydrocodone Bitart ([place] (5/325)) 1 tab Q4H PRN GTB MODERATE PAIN LEVEL 4-6; Start 11/08/18 at 04:30 Miscellaneous Information 1 ea NOTE XX ; Start 11/08/18 at 05:00 Ipratropium [place] (Atrovent 0.02% (Neb)) 0.5 mg Q6HWA RESP THERAPY HHN Last administered on 11/13/18 08:08; Admin Dose 0.5 MG; Start 11/08/18 at 08:00 Lactobacillus Acidophilus/ Rhamnosus (Culturelle) 1 cap BID GTB Last administered on 11/13/18 09:35; Admin Dose 1 CAP; Start 11/08/18 at 09:00 Lansoprazole (Prevacid) 30 mg BID@,18 GTB Last administered on 11/13/18 05:30; Admin Dose 30 MG; Start 11/08/18 at 06:00 Levetiracetam (Keppra Liquid) 500 mg BID GTB Last administered on 11/13/18 09:34; Admin Dose 500 MG; Start 11/08/18 at 09:00 Metoprolol Tartrate (Lopressor) 25 mg BID GTB Last administered on 11/13/18 09:36; Admin Dose 25 MG; Start 11/08/18 at 09:00 Multivitamins (Multivitamin) 30 ml DAILY GTB Last administered on 11/13/18 09:34; Admin Dose 30 ML; Start 11/08/18 at 09:00 Ondansetron HCl (Zofran Inj) 4 mg Q6H PRN IV NAUSEA AND/OR VOMITING; Start 11/08/18 at 05:30 Polyethylene Glycol (Miralax) 17 gm BID GTB Last administered on 11/13/18 09:34; Admin Dose 17 GM; Start 11/08/18 at 09:00 Sertraline HCl (Zoloft) 50 mg DAILY GTB Last administered on 11/13/18 09:36; Admin Dose 50 MG; Start 11/08/18 at 09:00 Sodium Hypochlorite (Dakins Diluted ()) 1 applic BID TP Last administered on 11/12/18 20:57; Admin Dose 1 APPLIC; Start 11/08/18 at 09:00 Zinc Sulfate (Zinc Sulfate) 220 mg DAILY GTB Last administered on 11/13/18 09:43; Admin Dose 220 MG; Start 11/08/18 at 09:00 Zolpidem Tartrate (Ambien) 5 mg HS PRN PO INSOMNIA; Start 11/08/18 at 05:30 [facility] This patient donato... PRN PRN XX WOUND CARE; Start 11/08/18 at 05:30 Metoprolol Tartrate (Lopressor) 5 mg Q4H IV Last administered on 11/10/18at 17:54; Admin Dose 5 MG; Start 11/08/18 at 09:00 Miscellaneous Information 1 ea NOTE XX ; Start 11/08/18 at 08:00 Glucose (Glutose) 15 gm Q15M PRN PO DECREASED GLUCOSE; Start 11/08/18 at 08:00 Glucose (Glutose) 22.5 gm Q15M PRN PO DECREASED GLUCOSE; Start 11/08/18 at 08:00 Dextrose (D50w Syringe) 25 ml Q15M PRN IV DECREASED GLUCOSE; Start 11/08/18 at 08:00 Dextrose (D50w Syringe) 50 ml Q15M PRN IV DECREASED GLUCOSE; Start 11/08/18 at 08:00 Glucagon (Glucagen) 1 mg Q15M PRN IM DECREASED GLUCOSE; Start 11/08/18 at 08:00 Glucose (Glutose) 15 gm Q15M PRN BUCCAL DECREASED GLUCOSE; Start 11/08/18 at 08:00 IV Flush (NS 10 ml) 10 ml PRN PRN IV IV PROTOCOL; Start 11/08/18 at 18:00 Amiodarone HCl (Cordarone) 200 mg BID PO Last administered on 11/13/18at 09:37; Admin Dose 200 MG; Start 11/09/18 at 21:00 Lisinopril (Zestril) 2.5 mg DAILY GTB Last administered on 11/13/18at 09:37; Admin Dose 2.5 MG; Start 11/10/18 at 09:00 Sodium Hypochlorite (Dakins Diluted ()) 1 applic BID TP Last administered on 11/12/18at 20:57; Admin Dose 1 APPLIC; Start 11/09/18 at 21:00 Ciprofloxacin/ Dextrose 200 ml @ 200 mls/hr Q12 IVPB Last administered on 05/24at 09:34; Admin Dose 200 MLS/HR; Start 11/10/18 at 21:00 Insulin Aspart (Novolog Insulin Pen) NOVOLOG *MILD* ALGORI... Q6 SC Last administered on 11/13/18at 05:40; Admin Dose 2 UNIT; Start 11/11/18 at 06:00 MAITE VAZQUEZ Apr 10, 2019 11:09
--- NOTE | 2018-11-13 11:46 | PN ---
Date/Time of Note Date/Time of Note DATE: 11/13/18 TIME: 11:39 Assessment/Plan Lines/Catheters IV Catheter Type (from Nrs): PICC Line Ramires in Place (from Nrs): Yes Assessment/Plan Chief Complaint/Hosp Course 1. sacral and right hip wound: recently completed abx tx for osteo; S/p Girdlestone resection arthroplasty and flap reconstruction 09/23/2018, currently w exposed bone; CT: (sacrum and coccyx, right femoral stump with osteomyelitis, mild inflammatory phlegmon and presacral space without abscess; right femoral stump dislocation from acetabulum and rotated 90 degrees) -debridement prn -continue local care w [facility]> wound care already ordered -frequent turning and off-loading -low air loss mattress -vitamin c -short term zinc -optimize nutrition -Recommend Ortho consult -ID 2. Paroxysmal Atiral fibrillation with RVR: Currently in sinus rhythm -per cards -rate control 3. Respiratory faillure: s/p trach -pulm toilet 4. Supranuclear palsy -injury prevention/supportive 5. DM: -glucose mgt 6. Hypochromic normocytic anemia: -monitor and tx as needed Thank you. Patient seen and examined in collaboration with Dr. Gilmar Wiggins. Subjective 24 Hr Interval Summary min temp. No labored breathing, congested cougb, vomiting, diarrheA,sz, rash, mod drainage from wounds Exam/Review of Systems Vital Signs Vitals Vital Signs Date Temp Pulse Resp B/P (MAP) Pulse Ox O2 O2 Flow FiO2 Time Delivery Rate 11/13/18 66 08:34 11/13/18 16 96 Aerosol 5.0 28 08:08 T Tube 11/13/18 98.4 106/57 07:26 (73) Intake and Output 11/12/18 11/12/18 11/13/18 1515:00 23:00 07:00 IntakeIntake Total 1300 ml 1960 ml OutputOutput Total 1800 ml 1000 ml BalanceBalance -500 ml 960 ml Exam Free Text/Dictation Constitutional: alert, other; No distress Head: normocephalic, atraumatic Eyes: nl conjunctiva, nl lids, nl sclera ENMT: nl external ears & nose, nl lips & teeth, mucosa pink and moist Neck: non-tender Respiratory: normal air movement; No congested cough Cardiovascular: regular rate and rhythm, nl pulses; No edema Gastrointestinal: soft, non-tender; No distended Genitourinary - Female: nl adnexae, nl external genitalia Musculoskeletal: other; No muscle tone Extremities: normal pulses; No edema, No tenderness Neurological: No nl mental status, No nl speech, No nl strength Skin: other; sacral (minimal odor, moderate drainage, packed); right hip: (Exposed bone, minimal slough, minimal odor, moderate drainage) No rash or lesions, No diaphoresis Results Result Diagram: 11/10/18 0510 11/10/18 0510 JOSE ANTONIO MONTGOMERY NP Nov 13, 2018 11:46
--- NOTE | 2018-11-13 14:17 | CONS ---
Consult Date/Type/Reason Admit Date/Time Nov 08, 2018 at 03:55 Initial Consult Date 11/09/18 Type of Consult Pulmonary Requesting Provider: NADEEN CHO Date/Time of Note DATE: 11/13/18 TIME: 14:17 Subjective Patient comfortable this morning no respiratory distress Objective Vital Signs Date Temp Pulse Resp B/P (MAP) Pulse Ox O2 O2 Flow FiO2 Time Delivery Rate 11/13/18 97 5.0 28 13:41 11/13/18 57 16 Aerosol 13:41 T Tube 11/13/18 98.1 114/77 12:16 (89) Intake and Output 11/12/18 11/12/18 11/13/18 1515:00 23:00 07:00 IntakeIntake Total 1300 ml 1960 ml OutputOutput Total 1800 ml 1000 ml BalanceBalance -500 ml 960 ml Exam GENERAL: Chronically ill-appearing lady VITAL SIGNS: per chart NECK: Supple. No JVD or lymphadenopathy. CARDIAC EXAM: S1, S2. No added sounds or murmurs. CHEST: Diminished air entry bilaterally ABDOMEN: Soft, nontender. No guarding or rebound. EXTREMITIES: No cyanosis, clubbing or edema. NEUROLOGIC: Generalized weakness. Contractures stage III-IV decubitus Vent Setting Fraction of Inspired Oxygen pe: 28 Results/Medications Result Diagram: 11/10/18 0510 11/10/18 0510 Results 24 hrs Laboratory Tests Test 11/12/18 17:50 11/13/18 00:09 11/13/18 05:29 11/13/18 12:02 Bedside Glucose 119 159 187 133 Medications Current Medications Sodium Chloride 1,000 ml @ 50 mls/hr Q20H IV Last administered on 11/13/18at 01:17; Admin Dose 50 MLS/HR; Start 11/08/18 at 05:30 Acetaminophen (Tylenol Liquid) 650 mg Q6H PRN GTB PAIN AND/OR INFLAMMATION; Start 11/08/18 at 22:00 Albuterol (Proventil 0.083% (Neb)) 2.5 mg Q6H RESP THERAPY HHN Last administered on 11/13/18at 13:41; Admin Dose 2.5 MG; Start 11/08/18 at 08:00 Ascorbic Acid (Vitamin C) 500 mg BID GTB Last administered on 11/13/18at 09:38; Admin Dose 500 MG; Start 11/08/18 at 09:00 Aspirin (Aspirin) 81 mg BID GTB Last administered on 11/13/18 09:36; Admin Dose 81 MG; Start 11/08/18 at 09:00 Baclofen (Lioresal) 20 mg DAILY GTB Last administered on 11/13/18 09:38; Admin Dose 20 MG; Start 11/08/18 at 09:00 Cholecalciferol (Vitamin D) 2,000 unit DAILY GTB Last administered on 11/13/18 09:34; Admin Dose 2,000 UNIT; Start 11/08/18 at 09:00 Clonazepam (Klonopin) 0.5 mg BID GTB Last administered on 11/13/18 09:43; Admin Dose 0.5 MG; Start 11/08/18 at 09:00 Cyanocobalamin (Vitamin B12) 500 mcg DAILY GTB Last administered on 11/13/18 09:36; Admin Dose 500 MCG; Start 11/08/18 at 09:00 Acetaminophen/ Hydrocodone Bitart ([place] (5/325)) 1 tab Q4H PRN GTB MODERATE PAIN LEVEL 4-6; Start 11/08/18 at 04:30 Miscellaneous Information 1 ea NOTE XX ; Start 11/08/18 at 05:00 Ipratropium [place] (Atrovent 0.02% (Neb)) 0.5 mg Q6HWA RESP THERAPY HHN Last administered on 11/13/18 13:41; Admin Dose 0.5 MG; Start 11/08/18 at 08:00 Lactobacillus Acidophilus/ Rhamnosus (Culturelle) 1 cap BID GTB Last administered on 11/13/18 09:35; Admin Dose 1 CAP; Start 11/08/18 at 09:00 Lansoprazole (Prevacid) 30 mg BID@,18 GTB Last administered on 11/13/18 05:30; Admin Dose 30 MG; Start 11/08/18 at 06:00 Levetiracetam (Keppra Liquid) 500 mg BID GTB Last administered on 11/13/18 09:34; Admin Dose 500 MG; Start 11/08/18 at 09:00 Metoprolol Tartrate (Lopressor) 25 mg BID GTB Last administered on 11/13/18 09:36; Admin Dose 25 MG; Start 11/08/18 at 09:00 Multivitamins (Multivitamin) 30 ml DAILY GTB Last administered on 11/13/18 09:34; Admin Dose 30 ML; Start 11/08/18 at 09:00 Ondansetron HCl (Zofran Inj) 4 mg Q6H PRN IV NAUSEA AND/OR VOMITING; Start 11/08/18 at 05:30 Polyethylene Glycol (Miralax) 17 gm BID GTB Last administered on 11/13/18 09:34; Admin Dose 17 GM; Start 11/08/18 at 09:00 Sertraline HCl (Zoloft) 50 mg DAILY GTB Last administered on 11/13/18 09:36; Admin Dose 50 MG; Start 11/08/18 at 09:00 Sodium Hypochlorite (Dakins Diluted ()) 1 applic BID TP Last administered on 11/12/18 20:57; Admin Dose 1 APPLIC; Start 11/08/18 at 09:00 Zinc Sulfate (Zinc Sulfate) 220 mg DAILY GTB Last administered on 11/13/18 09:43; Admin Dose 220 MG; Start 11/08/18 at 09:00 Zolpidem Tartrate (Ambien) 5 mg HS PRN PO INSOMNIA; Start 11/08/18 at 05:30 Miscellaneous Information (Pending [facility] Order For Wound Care) This patient donato... PRN PRN XX WOUND CARE; Start 11/08/18 at 05:30 Metoprolol Tartrate (Lopressor) 5 mg Q4H IV Last administered on 11/10/18 17:54; Admin Dose 5 MG; Start 11/08/18 at 09:00 Miscellaneous Information 1 ea NOTE XX ; Start 11/08/18 at 08:00 Glucose (Glutose) 15 gm Q15M PRN PO DECREASED GLUCOSE; Start 11/08/18 at 08:00 Glucose (Glutose) 22.5 gm Q15M PRN PO DECREASED GLUCOSE; Start 11/08/18 at 08:00 Dextrose (D50w Syringe) 25 ml Q15M PRN IV DECREASED GLUCOSE; Start 11/08/18 at 08:00 Dextrose (D50w Syringe) 50 ml Q15M PRN IV DECREASED GLUCOSE; Start 11/08/18 at 08:00 Glucagon (Glucagen) 1 mg Q15M PRN IM DECREASED GLUCOSE; Start 11/08/18 at 08:00 Glucose (Glutose) 15 gm Q15M PRN BUCCAL DECREASED GLUCOSE; Start 11/08/18 at 08:00 IV Flush (NS 10 ml) 10 ml PRN PRN IV IV PROTOCOL; Start 11/08/18 at 18:00 Amiodarone HCl (Cordarone) 200 mg BID PO Last administered on 11/13/18 09:37; Admin Dose 200 MG; Start 11/09/18 at 21:00 Lisinopril (Zestril) 2.5 mg DAILY GTB Last administered on 11/13/18at 09:37; Admin Dose 2.5 MG; Start 11/10/18 at 09:00 Sodium Hypochlorite (Dakins Diluted ()) 1 applic BID TP Last administered on 11/12/18at 20:57; Admin Dose 1 APPLIC; Start 11/09/18 at 21:00 Ciprofloxacin/ Dextrose 200 ml @ 200 mls/hr Q12 IVPB Last administered on 11/13/18at 09:34; Admin Dose 200 MLS/HR; Start 11/10/18 at 21:00 Insulin Aspart (Novolog Insulin Pen) NOVOLOG *MILD* ALGORI... Q6 SC Last administered on 11/13/18at 05:40; Admin Dose 2 UNIT; Start 11/11/18 at 06:00 Assessment/Plan Hospital Course (Demo Recall) IMP: 1. Severe Sepsis--2/2 wound infection 2. Afib with RVR 3. 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 Chronic encephalopathy 5. Seizure D/O 6. Dementia 7. Decubitus ulcers RECS: 1. Abx per ID 2. BD's/CPT/suctioning 3. Monitor on t-piece 4. Follow cultures 5. Wound care 6. Rate control 7. TF/Free H20 Consider PRBCs. Consider transfer to [facility] JARED NICOLAS MD, [facility] Nov 13, 2018 14:17
--- NOTE | 2018-11-13 14:49 | PN ---
Date/Time of Note Date/Time of Note DATE: 11/13/18 TIME: 14:46 Assessment/Plan VTE Prophylaxis Risk score (from Ns)>0 risk: 5 SCD applied (from Ns): Yes Pharmacological prophylaxis: other Lines/Catheters IV Catheter Type (from Nrsg): PICC Line Central line still needed: Yes Urinary Cath still in place: Yes Reason Cath still needed: urinary retention Assessment/Plan Hospital Course No acute events overnight, patient remains hemodynamically stable, currently in sinus rhythm, pending transfer to [facility] when bed is av ailable. Assessment/Plan -Atrial fibrillation/ flutter with rapid ventricular response. Patient is currently in sinus rhythm. Continue amiodarone. Dr. Monson is following in c ardiology consultation. -Progressive supranuclear palsy -Respiratory failure with tracheostomy patient is currently on cool aerosol mist. -Chronic encephalopathy -Decubitus ulcer of the right hip and sacrum, status post Girdlestone procedure of the right hip with flap in September 2018, followed by removal of necrotic tissue by Dr. Triplett at [facility]. -Right hip wound infection with OM of R hip, completed treatment with antibiotics. -Wound dehiscence, s/p repeat debridement at [facility] on 11/03/2018. -Diabetes -Chronic diastolic CHF -Dysphagia with GT -Anemia of chronic disease Further recommendations based on clinical course. Plan of care discussed with Dr. Shannon Result Diagram: 11/10/1810 11/10/1810 Results 24hrs Laboratory Tests Test 11/12/18 17:50 11/13/18 00:09 11/13/18 05:29 11/13/18 12:02 Bedside Glucose 119 159 187 133 Exam/Review of Systems Exam Vitals Vital Signs Date Temp Pulse Resp B/P (MAP) Pulse Ox O2 O2 Flow FiO2 Time Delivery Rate 11/13/18 97 5.0 28 13:41 11/13/18 57 16 Aerosol 13:41 T Tube 11/13/18 98.1 114/77 12:16 (89) Intake and Output 11/12/18 11/12/18 11/13/18 1414:59 22:59 06:59 IntakeIntake Total 1100 ml 2160 ml OutputOutput Total 1800 ml 1000 ml BalanceBalance -700 ml 1160 ml Exam Constitutional: non-verbal Neck: supple, other (trach) Respiratory: diminished breath sounds Cardiovascular: regular rate and rhythm Gastrointestinal: soft, non-tender, other (G- tube) Genitourinary - Female: other Extremities: other (contracted) Skin: other (Sacral and right hip wound) Results Results 24hrs Laboratory Tests Test 11/12/18 17:50 11/13/18 00:09 11/13/18 05:29 11/13/18 12:02 Bedside Glucose 119 159 187 133 Medications Medication Current Medications Sodium Chloride 1,000 ml @ 50 mls/hr Q20H IV Last administered on 11/13/18 01:17; Admin Dose 50 MLS/HR; Start 11/08/18 at 05:30 Acetaminophen (Tylenol Liquid) 650 mg Q6H PRN GTB PAIN AND/OR INFLAMMATION; Start 11/08/18 at 22:00 Albuterol (Proventil 0.083% (Neb)) 2.5 mg Q6H RESP THERAPY HHN Last administered on 11/13/18 13:41; Admin Dose 2.5 MG; Start 11/08/18 at 08:00 Ascorbic Acid (Vitamin C) 500 mg BID GTB Last administered on 11/13/18 09:38; Admin Dose 500 MG; Start 11/08/18 at 09:00 Aspirin (Aspirin) 81 mg BID GTB Last administered on 11/13/18 09:36; Admin Dose 81 MG; Start 11/08/18 at 09:00 Baclofen (Lioresal) 20 mg DAILY GTB Last administered on 11/13/18 09:38; Admin Dose 20 MG; Start 11/08/18 at 09:00 Cholecalciferol (Vitamin D) 2,000 unit DAILY GTB Last administered on 11/13/18 09:34; Admin Dose 2,000 UNIT; Start 11/08/18 at 09:00 Clonazepam (Klonopin) 0.5 mg BID GTB Last administered on 11/13/18 09:43; Admin Dose 0.5 MG; Start 11/08/18 at 09:00 Cyanocobalamin (Vitamin B12) 500 mcg DAILY GTB Last administered on 11/13/18 09:36; Admin Dose 500 MCG; Start 11/08/18 at 09:00 Acetaminophen/ Hydrocodone Bitart ([place] (5/325)) 1 tab Q4H PRN GTB MODERATE PAIN LEVEL 4-6; Start 11/08/18 at 04:30 Miscellaneous Information 1 ea NOTE XX ; Start 11/08/18 at 05:00 Ipratropium [place] (Atrovent 0.02% (Neb)) 0.5 mg Q6HWA RESP THERAPY HHN Last administered on 11/13/18 13:41; Admin Dose 0.5 MG; Start 11/08/18 at 08:00 Lactobacillus Acidophilus/ Rhamnosus (Culturelle) 1 cap BID GTB Last a dministered on 11/13/18 09:35; Admin Dose 1 CAP; Start 11/08/18 at 09:00 Lansoprazole (Prevacid) 30 mg BID@,18 GTB Last administered on 11/13/18 05:30; Admin Dose 30 MG; Start 11/08/18 at 06:00 Levetiracetam (Keppra Liquid) 500 mg BID GTB Last administered on 11/13/18 09:34; Admin Dose 500 MG; Start 11/08/18 at 09:00 Metoprolol Tartrate (Lopressor) 25 mg BID GTB Last administered on 11/13/18 09:36; Admin Dose 25 MG; Start 11/08/18 at 09:00 Multivitamins (Multivitamin) 30 ml DAILY GTB Last administered on 11/13/18 09:34; Admin Dose 30 ML; Start 11/08/18 at 09:00 Ondansetron HCl (Zofran Inj) 4 mg Q6H PRN IV NAUSEA AND/OR VOMITING; Start 11/08/18 at 05:30 Polyethylene Glycol (Miralax) 17 gm BID GTB Last administered on 11/13/18 09:34; Admin Dose 17 GM; Start 11/08/18 at 09:00 Sertraline HCl (Zoloft) 50 mg DAILY GTB Last administered on 11/13/18 09:36; Admin Dose 50 MG; Start 11/08/18 at 09:00 Sodium Hypochlorite (Dakins Diluted ()) 1 applic BID TP Last administered on 11/12/18 20:57; Admin Dose 1 APPLIC; Start 11/08/18 at 09:00 Zinc Sulfate (Zinc Sulfate) 220 mg DAILY GTB Last administered on 11/13/18 09:43; Admin Dose 220 MG; Start 11/08/18 at 09:00 Zolpidem Tartrate (Ambien) 5 mg HS PRN PO INSOMNIA; Start 11/08/18 at 05:30 Miscellaneous Information [facility] This patient donato... PRN PRN XX WOUND CARE; Start 11/08/18 at 05:30 Metoprolol Tartrate (Lopressor) 5 mg Q4H IV Last administered on 11/10/18at 17:54; Admin Dose 5 MG; Start 11/08/18 at 09:00 Miscellaneous Information 1 ea NOTE XX ; Start 11/08/18 at 08:00 Glucose (Glutose) 15 gm Q15M PRN PO DECREASED GLUCOSE; Start 11/08/18 at 08:00 Glucose (Glutose) 22.5 gm Q15M PRN PO DECREASED GLUCOSE; Start 11/08/18 at 08:00 Dextrose (D50w Syringe) 25 ml Q15M PRN IV DECREASED GLUCOSE; Start 11/08/18 at 08:00 Dextrose (D50w Syringe) 50 ml Q15M PRN IV DECREASED GLUCOSE; Start 11/08/18 at 08:00 Glucagon (Glucagen) 1 mg Q15M PRN IM DECREASED GLUCOSE; Start 11/08/18 at 08:00 Glucose (Glutose) 15 gm Q15M PRN BUCCAL DECREASED GLUCOSE; Start 11/08/18 at 08:00 IV Flush (NS 10 ml) 10 ml PRN PRN IV IV PROTOCOL; Start 11/08/18 at 18:00 Amiodarone HCl (Cordarone) 200 mg BID PO Last administered on 11/13/18 09:37; Admin Dose 200 MG; Start 11/09/18 at 21:00 Lisinopril (Zestril) 2.5 mg DAILY GTB Last administered on 11/13/18 09:37; Admin Dose 2.5 MG; Start 11/10/18 at 09:00 Sodium Hypochlorite (Dakins Diluted ()) 1 applic BID TP Last administered on 11/12/18 20:57; Admin Dose 1 APPLIC; Start 11/09/18 at 21:00 Ciprofloxacin/ Dextrose 200 ml @ 200 mls/hr Q12 IVPB Last administered on 11/04 09:34; Admin Dose 200 MLS/HR; Start 11/10/18 at 21:00 Insulin Aspart (Novolog Insulin Pen) NOVOLOG *MILD* ALGORI... Q6 SC Last administered on 11/13/18at 05:40; Admin Dose 2 UNIT; Start 11/11/18 at 06:00 LUIZ BRANNON Nov 13, 2018 14:49
[2018-11-13] MEDS: SODIUM HYPOCHLORITE (1/40) 1 LITER BTL TOP SCH (21:56)
[2018-11-14] VITALS (11 sets, daily range): BP systolic 118–134; BP diastolic 56–68; PULSE 55–66; RESP 17–18
[2018-11-14] MEDS: METOPROLOL 5 MG INJ IV SCH ×3 (01:00→09:00)
[2018-11-14] MEDS: ALBUTEROL 0.083% (NEB) 2.5 MG/3 ML AMP HHN SCH ×4 (02:15→20:12)
[2018-11-14] MEDS: LANSOPRAZOLE 30 MG CAP GTB SCH ×2 (05:30→17:04)
[2018-11-14] MEDS: INSULIN ASPART [NOVOLOG] 3 ML PEN SC SCH ×3 (05:33→18:00)
[2018-11-14] MEDS: IPRATROPIUM (NEB) 0.5 MG/2.5 ML AMP HHN SCH ×3 (08:31→20:12)
[2018-11-14] MEDS: ASCORBIC ACID 500 MG TAB GTB SCH ×2 (09:00→23:00)
[2018-11-14] MEDS: DAKINS 0.0125%(1/40) 473 ML SOLUTION TP SCH ×2 (09:00→23:01)
[2018-11-14] MEDS: SODIUM HYPOCHLORITE (1/40) 1 LITER BTL TOP SCH ×2 (09:00→23:01)
[2018-11-14] MEDS: CIPROFLOXACIN 400MG/D5W 200 ML IVPB SCH ×2 (09:19→22:58)
[2018-11-14] MEDS: MULTIVITAMINS 30 ML CUP GTB SCH (09:20)
[2018-11-14] MEDS: LACTOBACILLUS RHAMNOSUS CAP GTB SCH ×2 (09:20→22:59)
[2018-11-14] MEDS: BACLOFEN 10 MG TAB GTB SCH (09:20)
[2018-11-14] MEDS: ZINC SULFATE 220 MG CAP GTB SCH (09:20)
[2018-11-14] MEDS: LEVETIRACETAM (100 MG/ML) 5ML CUP GTB SCH ×2 (09:20→22:58)
[2018-11-14] MEDS: SERTRALINE 50 MG TAB GTB SCH (09:21)
[2018-11-14] MEDS: ASPIRIN 81 MG TAB GTB SCH ×2 (09:21→23:00)
[2018-11-14] MEDS: POLYETHYLENE GLYCOL 17 GM PACKET GTB SCH ×2 (09:21→22:59)
[2018-11-14] MEDS: CHOLECALCIFEROL 2,000 UNIT CAP GTB SCH (09:21)
[2018-11-14] MEDS: CYANOCOBALAMIN 500 MCG TAB GTB SCH (09:21)
[2018-11-14] MEDS: AMIODARONE 200 MG TAB PO SCH ×2 (09:22→22:59)
[2018-11-14] MEDS: LISINOPRIL 5 MG TAB GTB SCH (09:22)
[2018-11-14] MEDS: METOPROLOL 25 MG TAB GTB SCH ×2 (09:23→21:00)
[2018-11-14] MEDS: clonAZEPAM 0.5 MG TAB GTB SCH ×2 (09:30→22:59)
--- NOTE | 2018-11-14 10:37 | CONS ---
Consult Date/Type/Reason Admit Date/Time Nov 08, 2018 at 03:55 Initial Consult Date 11/09/18 Type of Consult Pulmonary Requesting Provider: NADEEN CHO Date/Time of Note DATE: 11/14/18 TIME: 10:37 Subjective Patient comfortable no new events. Objective Vital Signs Date Temp Pulse Resp B/P (MAP) Pulse Ox O2 O2 Flow FiO2 Time Delivery Rate 11/14/18 60 18 100 Aerosol 5.0 28 08:31 T Tube 11/14/18 98.5 119/56 07:40 (77) Intake and Output 11/13/18 11/13/18 11/14/18 1515:00 23:00 07:00 IntakeIntake Total 1300 ml 2040 ml OutputOutput Total 1400 ml 1200 ml BalanceBalance -100 ml 840 ml Exam GENERAL: Chronically ill-appearing lady VITAL SIGNS: per chart NECK: Supple. No JVD or lymphadenopathy. CARDIAC EXAM: S1, S2. No added sounds or murmurs. CHEST: Diminished air entry bilaterally ABDOMEN: Soft, nontender. No guarding or rebound. EXTREMITIES: No cyanosis, clubbing or edema. NEUROLOGIC: Generalized weakness. Contractures stage III-IV decubitus Vent Setting Fraction of Inspired Oxygen pe: 28 Results/Medications Result Diagram: 11/10/18 0510 11/10/18 0510 Results 24 hrs Laboratory Tests Test 11/13/18 12:02 11/13/18 17:29 11/13/18 23:40 11/14/18 05:32 Bedside Glucose 133 127 167 111 Medications Current Medications Sodium Chloride 1,000 ml @ 50 mls/hr Q20H IV Last administered on 11/13/18at 23:43; Admin Dose 50 MLS/HR; Start 11/08/18 at 05:30 Acetaminophen (Tylenol Liquid) 650 mg Q6H PRN GTB PAIN AND/OR INFLAMMATION; Start 11/08/18 at 22:00 Albuterol (Proventil 0.083% (Neb)) 2.5 mg Q6H RESP THERAPY HHN Last administered on 11/14/18at 08:31; Admin Dose 2.5 MG; Start 11/08/18 at 08:00 Ascorbic Acid (Vitamin C) 500 mg BID GTB Last administered on 11/13/18at 21:57; Admin Dose 500 MG; Start 11/08/18 at 09:00 Aspirin (Aspirin) 81 mg BID GTB Last administered on 11/14/18 09:21; Admin Dose 81 MG; Start 11/08/18 at 09:00 Baclofen (Lioresal) 20 mg DAILY GTB Last administered on 11/14/18 09:20; Admin Dose 20 MG; Start 11/08/18 at 09:00 Cholecalciferol (Vitamin D) 2,000 unit DAILY GTB Last administered on 11/14/18 09:21; Admin Dose 2,000 UNIT; Start 11/08/18 at 09:00 Clonazepam (Klonopin) 0.5 mg BID GTB Last administered on 11/14/18 09:30; Admin Dose 0.5 MG; Start 11/08/18 at 09:00 Cyanocobalamin (Vitamin B12) 500 mcg DAILY GTB Last administered on 11/14/18 09:21; Admin Dose 500 MCG; Start 11/08/18 at 09:00 Acetaminophen/ Hydrocodone Bitart ([place] (5/325)) 1 tab Q4H PRN GTB MODERATE PAIN LEVEL 4-6; Start 11/08/18 at 04:30 Miscellaneous Information 1 ea NOTE XX ; Start 11/08/18 at 05:00 Ipratropium [place] (Atrovent 0.02% (Neb)) 0.5 mg Q6HWA RESP THERAPY HHN Last administered on 11/14/18 08:31; Admin Dose 0.5 MG; Start 11/08/18 at 08:00 Lactobacillus Acidophilus/ Rhamnosus (Culturelle) 1 cap BID GTB Last administered on 11/14/18 09:20; Admin Dose 1 CAP; Start 11/08/18 at 09:00 Lansoprazole (Prevacid) 30 mg BID@,18 GTB Last administered on 11/14/18 05:30; Admin Dose 30 MG; Start 11/08/18 at 06:00 Levetiracetam (Keppra Liquid) 500 mg BID GTB Last administered on 11/14/18 09:20; Admin Dose 500 MG; Start 11/08/18 at 09:00 Metoprolol Tartrate (Lopressor) 25 mg BID GTB Last administered on 11/14/18 09:23; Admin Dose 25 MG; Start 11/08/18 at 09:00 Multivitamins (Multivitamin) 30 ml DAILY GTB Last administered on 11/14/18at 09:20; Admin Dose 30 ML; Start 11/08/18 at 09:00 Ondansetron HCl (Zofran Inj) 4 mg Q6H PRN IV NAUSEA AND/OR VOMITING; Start 11/08/18 at 05:30 Polyethylene Glycol (Miralax) 17 gm BID GTB Last administered on 11/14/18at 09:21; Admin Dose 17 GM; Start 11/08/18 at 09:00 Sertraline HCl (Zoloft) 50 mg DAILY GTB Last administered on 11/14/18at 09:21; Admin Dose 50 MG; Start 11/08/18 at 09:00 Zinc Sulfate (Zinc Sulfate) 220 mg DAILY GTB Last administered on 11/14/18at 09:20; Admin Dose 220 MG; Start 11/08/18 at 09:00 Zolpidem Tartrate (Ambien) 5 mg HS PRN PO INSOMNIA; Start 11/08/18 at 05:30 [facility]isc[facility] This patient donato... PRN PRN XX WOUND CARE; Start 11/08/18 at 05:30 Metoprolol Tartrate (Lopressor) 5 mg Q4H IV Last administered on 11/10/18at 17:54; Admin Dose 5 MG; Start 11/08/18 at 09:00 Miscellaneous Information 1 ea NOTE XX ; Start 11/08/18 at 08:00 Glucose (Glutose) 15 gm Q15M PRN PO DECREASED GLUCOSE; Start 11/08/18 at 08:00 Glucose (Glutose) 22.5 gm Q15M PRN PO DECREASED GLUCOSE; Start 11/08/18 at 08:00 Dextrose (D50w Syringe) 25 ml Q15M PRN IV DECREASED GLUCOSE; Start 11/08/18 at 08:00 Dextrose (D50w Syringe) 50 ml Q15M PRN IV DECREASED GLUCOSE; Start 11/08/18 at 08:00 Glucagon (Glucagen) 1 mg Q15M PRN IM DECREASED GLUCOSE; Start 11/08/18 at 08:00 Glucose (Glutose) 15 gm Q15M PRN BUCCAL DECREASED GLUCOSE; Start 11/08/18 at 08:00 IV Flush (NS 10 ml) 10 ml PRN PRN IV IV PROTOCOL; Start 11/08/18 at 18:00 Amiodarone HCl (Cordarone) 200 mg BID PO Last administered on 11/14/18 09:22; Admin Dose 200 MG; Start 11/09/18 at 21:00 Lisinopril (Zestril) 2.5 mg DAILY GTB Last administered on 11/14/18 09:22; Admin Dose 2.5 MG; Start 11/10/18 at 09:00 Sodium Hypochlorite (Dakins Diluted (1/40)) 1 applic BID TP Last administered on 11/13/18 22:07; Admin Dose 1 APPLIC; Start 11/09/18 at 21:00 Ciprofloxacin/ Dextrose 200 ml @ 200 mls/hr Q12 IVPB Last administered on 09:19; Admin Dose 200 MLS/HR; Start 11/10/18 at 21:00 Insulin Aspart (Novolog Insulin Pen) NOVOLOG *MILD* ALGORI... Q6 SC Last administered on 11/13/18 23:51; Admin Dose 1 UNIT; Start 11/11/18 at 06:00 Sodium Hypochlorite (Dakin'S (Dilute 1/40)) 1 applic BID TOP Last administered on 11/13/18 21:56; Admin Dose 1 APPLIC; Start 11/13/18 at 21:00 Assessment/Plan Hospital Course (Demo Recall) IMP: 1. Severe Sepsis--2/2 wound infection 2. Afib with RVR 3. 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 Chronic encephalopathy 5. Seizure D/O 6. Dementia 7. Decubitus ulcers RECS: 1. Abx per ID 2. BD's/CPT/suctioning 3. Monitor on t-piece 4. Follow cultures 5. Wound care 6. Rate control 7. TF/Free H20 DC planning? JARED [facility]OLAS [facility] Nov 14, 2018 10:37
--- NOTE | 2018-11-14 11:29 | PN ---
Date/Time of Note Date/Time of Note DATE: 11/14/18 TIME: 11:26 Assessment/Plan Lines/Catheters IV Catheter Type (from Nrs): PICC Line Ramires in Place (from Nrs): Yes Assessment/Plan Chief Complaint/Hosp Course 1. sacral and right hip wound: recently completed abx tx for osteo; S/p Girdlestone resection arthroplasty and flap reconstruction 09/23/2018, currently w exposed bone; CT: (sacrum and coccyx, right femoral stump with osteomyelitis, mild inflammatory phlegmon and presacral space without abscess; right femoral stump dislocation from acetabulum and rotated 90 degrees) -debridement prn -continue local care w [facility]'s> same treatment -frequent turning and off-loading -low air loss mattress -vitamin c -short term zinc -optimize nutrition -Recommend Ortho consult -ID 2. Paroxysmal Atiral fibrillation with RVR: -per cards -rate control 3. Respiratory faillure: s/p trach -pulm toilet 4. Supranuclear palsy -injury prevention/supportive 5. DM: -glucose mgt 6. Hypochromic normocytic anemia: -monitor and tx as needed Thank you. Patient seen and examined in collaboration with Dr. Gilmar Wiggins. Subjective 24 Hr Interval Summary Appears comfortable. Heart rate controlled. Nonverbal indicators of pain not present. No fevers, labored breathing, congested cough, vomiting, diarrhea, seizure, rash, excessive wound drainage or odor. Exam/Review of Systems Vital Signs Vitals Vital Signs Date Temp Pulse Resp B/P (MAP) Pulse Ox O2 O2 Flow FiO2 Time Delivery Rate 11/14/18 98.2 66 18 131/58 97 11:24 (82) 11/14/18 Aerosol 5.0 28 08:31 T Tube Intake and Output 11/13/18 11/13/18 11/14/18 1515:00 23:00 07:00 IntakeIntake Total 1300 ml 2040 ml OutputOutput Total 1400 ml 1200 ml BalanceBalance -100 ml 840 ml Exam Free Text/Dictation Constitutional: alert, other; No distress Head: normocephalic, atraumatic Eyes: nl conjunctiva, nl lids, nl sclera ENMT: nl external ears & nose, nl lips & teeth, mucosa pink and moist Neck: non-tender Respiratory: normal air movement; No congested cough Cardiovascular: regular rate and rhythm, nl pulses; No edema Gastrointestinal: soft, non-tender; No distended Genitourinary - Female: nl adnexae, nl external genitalia Musculoskeletal: other; No muscle tone Extremities: normal pulses; No edema, No tenderness Neurological: No nl mental status, No nl speech, No nl strength Skin: other; sacral (minimal odor, moderate drainage, packed); right hip: (E xposed bone, minimal slough, minimal odor, moderate drainage) No rash or lesions, No diaphoresis Results Result Diagram: 11/10/18 0510 11/10/18 0510 JOSE ANTONIO MONTGOMERY NP Nov 14, 2018 11:29
--- NOTE | 2018-11-14 12:15 | CONS ---
Assessment/Plan Assessment/Plan Hospital Course (Demo Recall) # infection of wound, OM of R hip - colonization of the wound of R hip by pseudomonas (wound culture on 10/31/2018) - s/p repeat debridement at [facility] on 11/03/[address]. [address] Pierson, the wound appeared clean during the I&D (my conversation with him on 11/06/2018) - H/o stage sacral decubitus ulcer extending to bilateral buttocks. She reportedly had total hip dislocation and exposed femoral head. CT pelvis showed e/o OM. Pt complete IV vancomycin (09/17/2018-10/29/2018) for sacral OM associated with E. faecalis - H/o sharp excisional debridement down to and including bone of the sacrum on 08/22/2018 and 09/19/2018 - H/o excision of R hip ulcer, girdlestone resection arthroplasty and flap reconstruction 09/23/2018. The surgical pathology showed osteomyelitis of R hip bone, soft tissue cellulitis, and bony margin of excision was free of the disease - XR of R hip on 11/09/2009 showed the remaining R femoral shaft in transverse orientation and with lateral deviation - h/o removal of devitalized/necrotic tissue by Dr. Pierson on 10/07/2018 # sepsis, endovascular infection, respiratory - colonization of the airway by pseudomonas - tracheal aspirate 11/08/18 grew pseudomonas - h/o sepsis due to bacteremia and pneumonia - h/o bacteremia: blood cultures grew enterococcus faecalis on 09/17/2018 secondary to R hip wound infection as its wound culture on 09/16/2018 grew E. faecalis as well - H/o recurrent acute on chronic hypoxemic respiratory failure secondary to secretion retention, mucous plugging, major left lung atelectasis, severe shunting - h/o probable aspiration pneumonia. - h/o pneumonia due to pseudomonas on 09/30/2018. s/p Levaquin (10/03/18- 10/07/2018), Meropenem (restart 09/30/2018-10/03/18, 10/12/18 - 10/19/2018) and empiric Amikacin (09/30/18-10/03/18) - H/o intubation on 09/30/2018 - H/o tracheostomy on 10/04/2018 - h/o pseudomonas in urine culture on 09/17/2018 with mild pyuria; treated with Cefepime (09/20/2018-09/25/2018) # renal/ - H/o moderate L hydronephrosis per renal US - funguria, recurrent # heme/neuro - H/o acute on chronic anemia requiring PRBC - Metabolic encephalopathy - Supranuclear palsy # endo, cardiac - Diabetes Mellitus - A fib with RVR - Chronic diastolic HF (EF 40-45% with grade 1 DD per 2D Echo 10/24/2018) - H/o hypertension # allergy - Penicillin allergy (throat swelling) but Pt tolerated cefepime and ceftazidime - Resulted: [id number] <31 Recommendations: - according to Dr. Pierson who performed the wound debridement, Pt needs wound care until granulation tissue builds and infection is cleared. Then he would decide if Pt should get repeat closure or not - wound care by Dr. Jesus Wiggins - consider orthopedic consult because the remaining R femoral shaft was in transverse orientation and with lateral deviation on XR Consultation Date/Type/Reason Admit Date/Time Nov 08, 2018 at 03:55 Initial Consult Date 11/09/18 Requesting Provider: NADEEN CHO Date/Time of Note DATE: 11/14/18 TIME: 12:15 Exam/Review of Systems Exam Vitals Vital Signs Date Temp Pulse Resp B/P (MAP) Pulse Ox O2 O2 Flow FiO2 Time Delivery Rate 11/14/18 98.2 66 18 131/58 97 11:24 (82) 11/14/18 Aerosol 5.0 28 08:31 T Tube Intake and Output 11/13/18 11/13/18 11/14/18 1515:00 23:00 07:00 IntakeIntake Total 1300 ml 2040 ml OutputOutput Total 1400 ml 1200 ml BalanceBalance -100 ml 840 ml Constitutional: non-verbal Results Result Diagram: 11/10/18 0510 11/10/18 0510 Results 24hrs Laboratory Tests Test 11/13/18 17:29 11/13/18 23:40 11/14/18 05:32 Bedside Glucose 127 167 111 Medications Medication Current Medications Sodium Chloride 1,000 ml @ 50 mls/hr Q20H IV Last administered on 11/13/18at 23:43; Admin Dose 50 MLS/HR; Start 11/08/18 at 05:30 Acetaminophen (Tylenol Liquid) 650 mg Q6H PRN GTB PAIN AND/OR INFLAMMATION; Start 11/08/18 at 22:00 Albuterol (Proventil 0.083% (Neb)) 2.5 mg Q6H RESP THERAPY HHN Last administered on 11/14/18 08:31; Admin Dose 2.5 MG; Start 11/08/18 at 08:00 Ascorbic Acid (Vitamin C) 500 mg BID GTB Last administered on 11/13/18 21:57; Admin Dose 500 MG; Start 11/08/18 at 09:00 Aspirin (Aspirin) 81 mg BID GTB Last administered on 11/14/18 09:21; Admin Dose 81 MG; Start 11/08/18 at 09:00 Baclofen (Lioresal) 20 mg DAILY GTB Last administered on 11/14/18 09:20; Admin Dose 20 MG; Start 11/08/18 at 09:00 Cholecalciferol (Vitamin D) 2,000 unit DAILY GTB Last administered on 11/14/18 09:21; Admin Dose 2,000 UNIT; Start 11/08/18 at 09:00 Clonazepam (Klonopin) 0.5 mg BID GTB Last administered on 11/14/18 09:30; Admin Dose 0.5 MG; Start 11/08/18 at 09:00 Cyanocobalamin (Vitamin B12) 500 mcg DAILY GTB Last administered on 11/14/18 09:21; Admin Dose 500 MCG; Start 11/08/18 at 09:00 Acetaminophen/ Hydrocodone Bitart ([place] (5/325)) 1 tab Q4H PRN GTB MODERATE PAIN LEVEL 4-6; Start 11/08/18 at 04:30 Miscellaneous Information 1 ea NOTE XX ; Start 11/08/18 at 05:00 Ipratropium [place] (Atrovent 0.02% (Neb)) 0.5 mg Q6HWA RESP THERAPY HHN Last administered on 11/14/18 08:31; Admin Dose 0.5 MG; Start 11/08/18 at 08:00 Lactobacillus Acidophilus/ Rhamnosus (Culturelle) 1 cap BID GTB Last administered on 11/14/18 09:20; Admin Dose 1 CAP; Start 11/08/18 at 09:00 Lansoprazole (Prevacid) 30 mg BID@,18 GTB Last administered on 11/14/18 05:30; Admin Dose 30 MG; Start 11/08/18 at 06:00 Levetiracetam (Keppra Liquid) 500 mg BID GTB Last administered on 11/14/18 09:20; Admin Dose 500 MG; Start 11/08/18 at 09:00 Metoprolol Tartrate (Lopressor) 25 mg BID GTB Last administered on 11/14/18 09:23; Admin Dose 25 MG; Start 11/08/18 at 09:00 Multivitamins (Multivitamin) 30 ml DAILY GTB Last administered on 11/14/18 09:20; Admin Dose 30 ML; Start 11/08/18 at 09:00 Ondansetron HCl (Zofran Inj) 4 mg Q6H PRN IV NAUSEA AND/OR VOMITING; Start 11/08/18 at 05:30 Polyethylene Glycol (Miralax) 17 gm BID GTB Last administered on 11/14/18 09:21; Admin Dose 17 GM; Start 11/08/18 at 09:00 Sertraline HCl (Zoloft) 50 mg DAILY GTB Last administered on 11/14/18 09:21; Admin Dose 50 MG; Start 11/08/18 at 09:00 Zinc Sulfate (Zinc Sulfate) 220 mg DAILY GTB Last administered on 11/14/18 09:20; Admin Dose 220 MG; Start 11/08/18 at 09:00 Zolpidem Tartrate (Ambien) 5 mg HS PRN PO INSOMNIA; Start 11/08/18 at 05:30 Miscellaneous Information (Pending [facility] Order For Wound Care) This patient donato... PRN PRN XX WOUND CARE; Start 11/08/18 at 05:30 Metoprolol Tartrate (Lopressor) 5 mg Q4H IV Last administered on 11/10/18 17:54; Admin Dose 5 MG; Start 11/08/18 at 09:00 Miscellaneous Information 1 ea NOTE XX ; Start 11/08/18 at 08:00 Glucose (Glutose) 15 gm Q15M PRN PO DECREASED GLUCOSE; Start 11/08/18 at 08:00 Glucose (Glutose) 22.5 gm Q15M PRN PO DECREASED GLUCOSE; Start 11/08/18 at 08:00 Dextrose (D50w Syringe) 25 ml Q15M PRN IV DECREASED GLUCOSE; Start 11/08/18 at 08:00 Dextrose (D50w Syringe) 50 ml Q15M PRN IV DECREASED GLUCOSE; Start 11/08/18 at 08:00 Glucagon (Glucagen) 1 mg Q15M PRN IM DECREASED GLUCOSE; Start 11/08/18 at 08:00 Glucose (Glutose) 15 gm Q15M PRN BUCCAL DECREASED GLUCOSE; Start 11/08/18 at 08:00 IV Flush (NS 10 ml) 10 ml PRN PRN IV IV PROTOCOL; Start 11/08/18 at 18:00 Amiodarone HCl (Cordarone) 200 mg BID PO Last administered on 11/14/18 09:22; Admin Dose 200 MG; Start 11/09/18 at 21:00 Lisinopril (Zestril) 2.5 mg DAILY GTB Last administered on 11/14/18 09:22; Admin Dose 2.5 MG; Start 11/10/18 at 09:00 Sodium Hypochlorite (Dakins Diluted (1/40)) 1 applic BID TP Last administered on 11/13/18at 22:07; Admin Dose 1 APPLIC; Start 11/09/18 at 21:00 Ciprofloxacin/ Dextrose 200 ml @ 200 mls/hr Q12 IVPB Last administered on 11/14/18 09:19; Admin Dose 200 MLS/HR; Start 11/10/18 at 21:00 Insulin Aspart (Novolog Insulin Pen) NOVOLOG *MILD* ALGORI... Q6 SC Last administered on 11/13/18at 23:51; Admin Dose 1 UNIT; Start 11/11/18 at 06:00 Sodium Hypochlorite (Dakin'S (Dilute 1/40)) 1 applic BID TOP Last administered on 11/13/18at 21:56; Admin Dose 1 APPLIC; Start 11/13/18 at 21:00 KASH MONDRAGON MD Nov 14, 2018 12:15
[2018-11-14] MEDS ORDERED: METOPROLOL 5 MG INJ IV PRN (13:00)
--- NOTE | 2018-11-14 13:07 | RADRPT ---
Vent Rate: 68 bpm RR Interval: 888 msec NV Interval: 105 msec QRS Duration: 79 msec QT Interval: 389 msec QTC Interval: 413 msec P-R-T [place]: 13 - -6 - 59 degrees Sinus rhythm...normal P axis, V-rate 50- 99 Short NV interval...NV <110mS Low voltage, precordial leads...precordial leads <1.0mV Electronically Signed By: Randall Avina
--- NOTE | 2018-11-14 13:07 | CONS ---
Assessment/Plan Assessment/Plan Hospital Course (Demo Recall) IMPRESSION: 1. Paroxysmal atrial fibrillation flutter with rapid ventricular response, currently in sinus rhythm but as of this morning was in rapid atrial fibrillation and flutter. 2. Hypotension, borderline. 3. Congestive heart failure, systolic, acute on chronic. 4. Cardiomyopathy with mildly depressed left ventricular ejection fraction, last approximately 40% to 45% by echo 10/2018. 5. Encephalopathy, chronic. 6. Progressive supranuclear palsy. 7. Anemia. 8. Diabetes mellitus. Recc: -Now on tele -Continue po amio now in attempt to maintain SR -BB/ACEI as tolerated only -Follow volume status closely -pulmonary toliet Consultation Date/Type/Reason Admit Date/Time Nov 08, 2018 at 03:55 Initial Consult Date 11/08/18 Type of Consult Cardiology Reason for Consultation PAF Requesting Provider: NADEEN CHO Date/Time of Note DATE: 11/14/18 TIME: 13:05 Exam/Review of Systems Vital Signs Vitals Vital Signs Date Temp Pulse Resp B/P (MAP) Pulse Ox O2 O2 Flow FiO2 Time Delivery Rate 11/14/18 59 12:18 11/14/18 98.2 18 131/58 97 11:24 (82) 11/14/18 Aerosol 5.0 28 08:31 T Tube Intake and Output 11/13/18 11/13/18 11/14/18 1515:00 23:00 07:00 IntakeIntake Total 1300 ml 2040 ml OutputOutput Total 1400 ml 1200 ml BalanceBalance -100 ml 840 ml Exam Exam Review of Systems: CONSTITUTIONAL: No fevers, chills. PULMONARY: No sob CARDIOVASCULAR: No chest pain/palpitations GASTROINTESTINAL: No nausea/vomiting. GENITOURINARY: No hematuria/dysuria. MUSCULOSKELETAL: No myagias/arthalgias. PSYCHIATRIC: The patient denies depression. NEUROLOGIC: No weakness Constitutional: other (encephlaopathic) Psych: no complaints Head: normocephalic ENMT: mucosa pink and moist Neck: supple, jvd (9 cm water) Respiratory: clear to auscultation Cardiovascular: regular rate and rhythm Gastrointestinal: soft, non-tender Musculoskeletal: muscle tone (normal) Extremities: edema (none) Neurological: other (No focal deficits) Labs Result Diagram: 11/10/1810 11/10/18 0510 Results 24hrs Laboratory Tests Test 11/13/18 17:29 11/13/18 23:40 11/14/18 05:32 11/14/18 12:22 Bedside Glucose 127 167 111 120 Medications Medications Current Medications Sodium Chloride 1,000 ml @ 50 mls/hr Q20H IV Last administered on 11/13/18 23:43; Admin Dose 50 MLS/HR; Start 11/08/18 at 05:30 Acetaminophen (Tylenol Liquid) 650 mg Q6H PRN GTB PAIN AND/OR INFLAMMATION; Start 11/08/18 at 22:00 Albuterol (Proventil 0.083% (Neb)) 2.5 mg Q6H RESP THERAPY HHN Last administered on 11/14/18 08:31; Admin Dose 2.5 MG; Start 11/08/18 at 08:00 Ascorbic Acid (Vitamin C) 500 mg BID GTB Last administered on 11/13/18 21:57; Admin Dose 500 MG; Start 11/08/18 at 09:00 Aspirin (Aspirin) 81 mg BID GTB Last administered on 11/14/18 09:21; Admin Dose 81 MG; Start 11/08/18 at 09:00 Baclofen (Lioresal) 20 mg DAILY GTB Last administered on 11/14/18 09:20; Admin Dose 20 MG; Start 11/08/18 at 09:00 Cholecalciferol (Vitamin D) 2,000 unit DAILY GTB Last administered on 11/14/18 09:21; Admin Dose 2,000 UNIT; Start 11/08/18 at 09:00 Clonazepam (Klonopin) 0.5 mg BID GTB Last administered on 11/14/18 09:30; Admin Dose 0.5 MG; Start 11/08/18 at 09:00 Cyanocobalamin (Vitamin B12) 500 mcg DAILY GTB Last administered on 11/14/18 09:21; Admin Dose 500 MCG; Start 11/08/18 at 09:00 Acetaminophen/ Hydrocodone Bitart ([place] (5/325)) 1 tab Q4H PRN GTB MODERATE PAIN LEVEL 4-6; Start 11/08/18 at 04:30 Miscellaneous Information 1 ea NOTE XX ; Start 11/08/18 at 05:00 Ipratropium [place] (Atrovent 0.02% (Neb)) 0.5 mg Q6HWA RESP THERAPY HHN Last administered on 11/14/18 08:31; Admin Dose 0.5 MG; Start 11/08/18 at 08:00 Lactobacillus Acidophilus/ Rhamnosus (Culturelle) 1 cap BID GTB Last administered on 11/14/18 09:20; Admin Dose 1 CAP; Start 11/08/18 at 09:00 Lansoprazole (Prevacid) 30 mg BID@18 GTB Last administered on 11/14/18 05:30; Admin Dose 30 MG; Start 11/08/18 at 06:00 Levetiracetam (Keppra Liquid) 500 mg BID GTB Last administered on 11/14/18 09:20; Admin Dose 500 MG; Start 11/08/18 at 09:00 Metoprolol Tartrate (Lopressor) 25 mg BID GTB Last administered on 11/14/18 09:23; Admin Dose 25 MG; Start 11/08/18 at 09:00 Multivitamins (Multivitamin) 30 ml DAILY GTB Last administered on 11/14/18 09:20; Admin Dose 30 ML; Start 11/08/18 at 09:00 Ondansetron HCl (Zofran Inj) 4 mg Q6H PRN IV NAUSEA AND/OR VOMITING; Start 11/08/18 at 05:30 Polyethylene Glycol (Miralax) 17 gm BID GTB Last administered on 11/14/18 09:21; Admin Dose 17 GM; Start 11/08/18 at 09:00 Sertraline HCl (Zoloft) 50 mg DAILY GTB Last administered on 11/14/18 09:21; Admin Dose 50 MG; Start 11/08/18 at 09:00 Zinc Sulfate (Zinc Sulfate) 220 mg DAILY GTB Last administered on 11/14/18 09:20; Admin Dose 220 MG; Start 11/08/18 at 09:00 Zolpidem Tartrate (Ambien) 5 mg HS PRN PO INSOMNIA; Start 11/08/18 at 05:30 Miscellaneous Information (Pending [facility] Order For Wound Care) This patient donato... PRN PRN XX WOUND CARE; Start 11/08/18 at 05:30 Miscellaneous Information 1 ea NOTE XX ; Start 11/08/18 at 08:00 Glucose (Glutose) 15 gm Q15M PRN PO DECREASED GLUCOSE; Start 11/08/18 at 08:00 Glucose (Glutose) 22.5 gm Q15M PRN PO DECREASED GLUCOSE; Start 11/08/18 at 08:00 Dextrose (D50w Syringe) 25 ml Q15M PRN IV DECREASED GLUCOSE; Start 11/08/18 at 08:00 Dextrose (D50w Syringe) 50 ml Q15M PRN IV DECREASED GLUCOSE; Start 11/08/18 at 08:00 Glucagon (Glucagen) 1 mg Q15M PRN IM DECREASED GLUCOSE; Start 11/08/18 at 08:00 Glucose (Glutose) 15 gm Q15M PRN BUCCAL DECREASED GLUCOSE; Start 11/08/18 at 08:00 IV Flush (NS 10 ml) 10 ml PRN PRN IV IV PROTOCOL; Start 11/08/18 at 18:00 Amiodarone HCl (Cordarone) 200 mg BID PO Last administered on 11/14/18at 09:22; Admin Dose 200 MG; Start 11/09/18 at 21:00 Lisinopril (Zestril) 2.5 mg DAILY GTB Last administered on 11/14/18at 09:22; Admin Dose 2.5 MG; Start 11/10/18 at 09:00 Sodium Hypochlorite (Dakins Diluted (140)) 1 applic BID TP Last administered on 11/13/18at 22:07; Admin Dose 1 APPLIC; Start 11/09/18 at 21:00 Ciprofloxacin/ Dextrose 200 ml @ 200 mls/hr Q12 IVPB Last administered on 11/14/18at 09:19; Admin Dose 200 MLS/HR; Start 11/10/18 at 21:00 Insulin Aspart (Novolog Insulin Pen) NOVOLOG *MILD* ALGORI... Q6 SC Last administered on 11/13/18at 23:51; Admin Dose 1 UNIT; Start 11/11/18 at 06:00 Sodium Hypochlorite (Dakin'S (Dilute 1/40)) 1 applic BID TOP Last administered on 11/13/18at 21:56; Admin Dose 1 APPLIC; Start 11/13/18 at 21:00 Metoprolol Tartrate (Lopressor) 5 mg Q4H PRN IV ELEVATED HEART RATE; Start 11/14/18 at 13:00 MAITE VAZQUEZ Nov 14, 2018 13:07
--- NOTE | 2018-11-14 13:20 | RADRPT ---
Vent Rate: 127 bpm RR Interval: 0 msec UT Interval: 0 msec QRS Duration: 66 msec QT Interval: 290 msec QTC Interval: 421 msec P-R-T [place]: 0 - -14 - 42 degrees Atrial flutter with variable AV block Nonspecific ST abnormality Abnormal ECG Electronically Signed By: Randall Avina
--- NOTE | 2018-11-14 14:25 | PN ---
Date/Time of Note Date/Time of Note DATE: 11/14/18 TIME: 14:14 Assessment/Plan VTE Prophylaxis Risk score (from Ns)>0 risk: 6 SCD applied (from Ns): Yes Pharmacological prophylaxis: NA/contraindicated Pharm contraindication: surgical contra, anticoag not tolerated Lines/Catheters IV Catheter Type (from [facility] PICC Line Central line still needed: Yes Urinary Cath still in place: Yes Reason Cath still needed: urinary retention Assessment/Plan Hospital Course Patient was initially transferred to [facility] for atrial fibrillation with rapid ventricular response patient is currently in sinus rhyth m and sinus bradycardia, stable blood pressure. We will check CBC patient has chronic anemia we will transfuse his hemoglobin below 8, DC planning to [facility] versus subacute. Assessment/Plan -Atrial fibrillation/ flutter with rapid ventricular response. Patient is currently in sinus rhythm. Continue amiodarone. Dr. Monson is following in cardiology consultation. -Progressive supranuclear palsy -Respiratory failure with tracheostomy patient is currently on cool aerosol mist. -Chronic encephalopathy -Decubitus ulcer of the right hip and sacrum, status post [place] procedure of the right hip with flap in September 2018, followed by removal of necrotic tissue by Dr. Triplett at [facility]. -Right hip wound infection with OM of R hip, completed treatment with antibiotics. -Wound dehiscence, s/p repeat debridement at [facility] on 11/03/2018. -Diabetes -Chronic diastolic CHF -Dysphagia with GT -Anemia of chronic disease Further recommendations based on clinical course. Plan of care discussed with Dr. Shannon Result Diagram: 11/10/18 0510 11/10/18 0510 Results 24hrs Laboratory Tests Test 11/13/18 17:29 11/13/18 23:40 11/14/18 05:32 11/14/18 12:22 Bedside Glucose 127 167 111 120 Exam/Review of Systems Exam Vitals Vital Signs Date Temp Pulse Resp B/P (MAP) Pulse Ox O2 O2 Flow FiO2 Time Delivery Rate 11/14/18 56 18 98 Aerosol 5.0 28 13:13 T Tube 11/14/18 98.2 131/58 11:24 (82) Intake and Output 11/13/18 11/13/18 11/14/18 1414:59 22:59 06:59 IntakeIntake Total 1100 ml 2240 ml OutputOutput Total 1400 ml 1200 ml BalanceBalance -300 ml 1040 ml Exam Constitutional: non-verbal Neck: supple, other (trach) Respiratory: diminished breath sounds Cardiovascular: regular rate and rhythm Gastrointestinal: soft, non-tender, other (G- tube) Genitourinary - Female: other Extremities: other (contracted) Skin: other (Sacral and right hip wound) Results Results 24hrs Laboratory Tests Test 11/13/18 17:29 11/13/18 23:40 11/14/18 05:32 11/14/18 12:22 Bedside Glucose 127 167 111 120 Medications Medication Current Medications Sodium Chloride 1,000 ml @ 50 mls/hr Q20H IV Last administered on 11/13/18 23:43; Admin Dose 50 MLS/HR; Start 11/08/18 at 05:30 Acetaminophen (Tylenol Liquid) 650 mg Q6H PRN GTB PAIN AND/OR INFLAMMATION; Start 11/08/18 at 22:00 Albuterol (Proventil 0.083% (Neb)) 2.5 mg Q6H RESP THERAPY HHN Last administered on 11/14/18 13:03; Admin Dose 2.5 MG; Start 11/08/18 at 08:00 Ascorbic Acid (Vitamin C) 500 mg BID GTB Last administered on 11/13/18 21:57; Admin Dose 500 MG; Start 11/08/18 at 09:00 Aspirin (Aspirin) 81 mg BID GTB Last administered on 11/14/18 09:21; Admin Dose 81 MG; Start 11/08/18 at 09:00 Baclofen (Lioresal) 20 mg DAILY GTB Last administered on 11/14/18 09:20; Admin Dose 20 MG; Start 11/08/18 at 09:00 Cholecalciferol (Vitamin D) 2,000 unit DAILY GTB Last administered on 11/14/18 09:21; Admin Dose 2,000 UNIT; Start 11/08/18 at 09:00 Clonazepam (Klonopin) 0.5 mg BID GTB Last administered on 11/14/18 09:30; Admin Dose 0.5 MG; Start 11/08/18 at 09:00 Cyanocobalamin (Vitamin B12) 500 mcg DAILY GTB Last administered on 11/14/18 09:21; Admin Dose 500 MCG; Start 11/08/18 at 09:00 Acetaminophen/ Hydrocodone Bitart ([place] (5/325)) 1 tab Q4H PRN GTB MODERATE PAIN LEVEL 4-6; Start 11/08/18 at 04:30 Miscellaneous Information 1 ea NOTE XX ; Start 11/08/18 at 05:00 Ipratropium [place] (Atrovent 0.02% (Neb)) 0.5 mg Q6HWA RESP THERAPY HHN Last administered on 11/14/18 13:03; Admin Dose 0.5 MG; Start 11/08/18 at 08:00 Lactobacillus Acidophilus/ Rhamnosus (Culturelle) 1 cap BID GTB Last administered on 11/14/18 09:20; Admin Dose 1 CAP; Start 11/08/18 at 09:00 Lansoprazole (Prevacid) 30 mg BID@,18 GTB Last administered on 11/14/18 05:30; Admin Dose 30 MG; Start 11/08/18 at 06:00 Levetiracetam (Keppra Liquid) 500 mg BID GTB Last administered on 11/14/18 09:20; Admin Dose 500 MG; Start 11/08/18 at 09:00 Metoprolol Tartrate (Lopressor) 25 mg BID GTB Last administered on 11/14/18 09:23; Admin Dose 25 MG; Start 11/08/18 at 09:00 Multivitamins (Multivitamin) 30 ml DAILY GTB Last administered on 11/14/18 09:20; Admin Dose 30 ML; Start 11/08/18 at 09:00 Ondansetron HCl (Zofran Inj) 4 mg Q6H PRN IV NAUSEA AND/OR VOMITING; Start 11/08/18 at 05:30 Polyethylene Glycol (Miralax) 17 gm BID GTB Last administered on 11/14/18 09:21; Admin Dose 17 GM; Start 11/08/18 at 09:00 Sertraline HCl (Zoloft) 50 mg DAILY GTB Last administered on 11/14/18 09:21; Admin Dose 50 MG; Start 11/08/18 at 09:00 Zinc Sulfate (Zinc Sulfate) 220 mg DAILY GTB Last administered on 11/14/18 09:20; Admin Dose 220 MG; Start 11/08/18 at 09:00 Zolpidem Tartrate (Ambien) 5 mg HS PRN PO INSOMNIA; Start 11/08/18 at 05:30 Miscellaneous Information (Pending Santyl Order For Wound Care) This patient donato... PRN PRN XX WOUND CARE; Start 11/08/18 at 05:30 Miscellaneous Information 1 ea NOTE XX ; Start 11/08/18 at 08:00 Glucose (Glutose) 15 gm Q15M PRN PO DECREASED GLUCOSE; Start 11/08/18 at 08:00 Glucose (Glutose) 22.5 gm Q15M PRN PO DECREASED GLUCOSE; Start 11/08/18 at 08:00 Dextrose (D50w Syringe) 25 ml Q15M PRN IV DECREASED GLUCOSE; Start 11/08/18 at 08:00 Dextrose (D50w Syringe) 50 ml Q15M PRN IV DECREASED GLUCOSE; Start 11/08/18 at 08:00 Glucagon (Glucagen) 1 mg Q15M PRN IM DECREASED GLUCOSE; Start 11/08/18 at 08:00 Glucose (Glutose) 15 gm Q15M PRN BUCCAL DECREASED GLUCOSE; Start 11/08/18 at 08:00 IV Flush (NS 10 ml) 10 ml PRN PRN IV IV PROTOCOL; Start 11/08/18 at 18:00 Amiodarone HCl (Cordarone) 200 mg BID PO Last administered on 11/14/18at 09:22; Admin Dose 200 MG; Start 11/09/18 at 21:00 Lisinopril (Zestril) 2.5 mg DAILY GTB Last administered on 11/14/18at 09:22; Admin Dose 2.5 MG; Start 11/10/18 at 09:00 Sodium Hypochlorite (Dakins Diluted (/40)) 1 applic BID TP Last administered on 11/13/18at 22:07; Admin Dose 1 APPLIC; Start 11/09/18 at 21:00 Ciprofloxacin/ Dextrose 200 ml @ 200 mls/hr Q12 IVPB Last administered on 11/14/18at 09:19; Admin Dose 200 MLS/HR; Start 11/10/18 at 21:00 Insulin Aspart (Novolog Insulin Pen) NOVOLOG *MILD* ALGORI... Q6 SC Last administered on 11/13/18at 23:51; Admin Dose 1 UNIT; Start 11/11/18 at 06:00 Sodium Hypochlorite (Dakin'S (Dilute )) 1 applic BID TOP Last administered on 11/13/18at 21:56; Admin Dose 1 APPLIC; Start 11/13/18 at 21:00 Metoprolol Tartrate (Lopressor) 5 mg Q4H PRN IV ELEVATED HEART RATE; Start 11/14/18 at 13:00 LUIZ BRANNON Nov 14, 2018 14:25
[2018-11-14] MEDS: SOD CHLORIDE 0.9% 1,000 ML IV SCH (21:50)
[2018-11-15] VITALS (11 sets, daily range): BP systolic 92–138; BP diastolic 51–63; PULSE 65–82; RESP 17–19
[2018-11-15] MEDS: INSULIN ASPART [NOVOLOG] 3 ML PEN SC SCH ×4 (00:04→18:00)
[2018-11-15] MEDS: ALBUTEROL 0.083% (NEB) 2.5 MG/3 ML AMP HHN SCH ×3 (01:15→14:24)
[2018-11-15] MEDS: LANSOPRAZOLE 30 MG CAP GTB SCH ×2 (06:11→18:17)
[2018-11-15] MEDS: IPRATROPIUM (NEB) 0.5 MG/2.5 ML AMP HHN SCH ×2 (08:11→14:23)
[2018-11-15] MEDS: LISINOPRIL 5 MG TAB GTB SCH (09:00)
[2018-11-15] MEDS: METOPROLOL 25 MG TAB GTB SCH (09:00)
[2018-11-15] MEDS: CIPROFLOXACIN 400MG/D5W 200 ML IVPB SCH (09:35)
[2018-11-15] MEDS: MULTIVITAMINS 30 ML CUP GTB SCH (09:36)
[2018-11-15] MEDS: LEVETIRACETAM (100 MG/ML) 5ML CUP GTB SCH (09:36)
[2018-11-15] MEDS: ZINC SULFATE 220 MG CAP GTB SCH (09:36)
[2018-11-15] MEDS: POLYETHYLENE GLYCOL 17 GM PACKET GTB SCH (09:36)
[2018-11-15] MEDS: ASPIRIN 81 MG TAB GTB SCH (09:37)
[2018-11-15] MEDS: BACLOFEN 10 MG TAB GTB SCH (09:37)
[2018-11-15] MEDS: SERTRALINE 50 MG TAB GTB SCH (09:37)
[2018-11-15] MEDS: ASCORBIC ACID 500 MG TAB GTB SCH (09:37)
[2018-11-15] MEDS: CYANOCOBALAMIN 500 MCG TAB GTB SCH (09:37)
[2018-11-15] MEDS: LACTOBACILLUS RHAMNOSUS CAP GTB SCH (09:37)
[2018-11-15] MEDS: CHOLECALCIFEROL 2,000 UNIT CAP GTB SCH (09:37)
--- NOTE | 2018-11-15 09:37 | CONS ---
Assessment/Plan Assessment/Plan Assessment/Plan (Daily) Assessment and recommendations; 1. Patient with history of chronic encephalopathy, maintained on T-piece admitted for severe sepsis due to decubitus ulcers. Clinically improving. 2. History of stable seizure disorder. 3. Patient also exhibited A. fib with RVR on admission, rate is well control led now. 4. Anemia. Continue current supportive care. Antibiotics per ID recommendations. Consultation Date/Type/Reason Admit Date/Time Nov 08, 2018 at 03:55 Initial Consult Date 11/09/18 Type of Consult Pulmonary/critical care Patient is a 73-year-old lady with history of severe chronic enteropathy and chronic respiratory failure transferred from [facility] because of onset of atrial fibrillation with RVR. Patient has history of advanced dementia and was unable to give any history by herself whatsoever. Patient however did not appear to be in any distress. Past medical history; 1. Severe encephalopathy 2. Chronic respiratory failure, maintained on T-piece. 3. Decubitus ulcers. 4. Anemia. 5. Seizure disorder. 6. G-tube placement. Medications; reviewed. Allergies; as outlined above. Family history, occupational history, social history is not available. Review of systems; unable to be obtained. General exam; elderly woman, on T-piece via tracheostomy, unresponsive, currently in no distress. Requesting Provider: NADEEN CHO Date/Time of Note DATE: 11/15/18 TIME: 09:35 24 HR Interval Summary Free Text/Dictation Patient's condition remains stable. Has remained hemodynamically stable and also exhibiting stable pulmonary status on T-piece. General exam; elderly female, unresponsive due to chronic encephalopathy. Currently in no distress. Exam/Review of Systems Exam Vitals Vital Signs Date Temp Pulse Resp B/P (MAP) Pulse Ox O2 O2 Flow FiO2 Time Delivery Rate 11/15/18 72 09:01 11/15/18 99 5.0 28 08:15 11/15/18 18 Aerosol 08:14 T Tube 11/15/18 98.9 123/58 07:07 (79) Intake and Output 11/14/18 11/14/18 11/15/18 1515:00 23:00 07:00 IntakeIntake Total 1800 ml 1450 ml OutputOutput Total 1400 ml 1000 ml BalanceBalance 400 ml 450 ml Exam H EENT exam; supple neck, no JVD. No lymphadenopathy. Midline trachea. No thyromegaly. Tracheostomy in place. T-piece. Tracheostomy insertion site is clean. Patient is edentulous in the upper jaw. No neck masses. Chest exam; diminished breath sounds bilaterally. No added sounds. S1-S2 audible, no murmurs. Regular rhythm. Abdomen exam; soft, G-tube in place. No organomegaly. Bowel sounds audible. Abdomen is nondistended. Extremity exam; no peripheral edema. Patient does have flexion contractures i nvolving all 4 extremities. Back exam; dressing applied over sacrum. PLUMBING ENGINEER exam; patient awake but noncommunicative. Results Result Diagram: 11/14/18 1437 11/14/18 1437 Results 24hrs Laboratory Tests Test 11/14/18 12:22 11/14/18 14:37 11/14/18 17:15 11/14/18 23:48 Bedside Glucose 120 103 189 White Blood Count 7.0 # Red Blood Count 3.29 #L Hemoglobin 8.4 L Hematocrit 27.9 L Mean Corpuscular 84.8 Volume Mean Corpuscular 25.5 L Hemoglobin Mean Corpuscular 30.1 L Hemoglobin Concent Red Cell 18.1 H Distribution Width Platelet Count 243 # Mean Platelet Volume 10.2 Immature 0.400 Granulocytes % Neutrophils % 65.4 Lymphocytes % 18.8 Monocytes % 6.9 Eosinophils % 7.9 H Basophils % 0.6 Nucleated Red Blood 0.0 Cells % Immature 0.030 Granulocytes # Neutrophils # 4.5 Lymphocytes # 1.3 Monocytes # 0.5 Eosinophils # 0.6 H Basophils # 0.0 Nucleated Red Blood 0.0 Cells # Sodium Level 138 Potassium Level 4.3 Chloride Level 107 Carbon Dioxide Level 25 Anion Gap 6 Blood Urea Nitrogen 14 Creatinine 0.34 L Est Glomerular Filtrat Rate mL/min Glucose Level 105 Calcium Level 8.9 Test 11/15/18 06:13 Bedside Glucose 108 Medications Medication Current Medications Sodium Chloride 1,000 ml @ 50 mls/hr Q20H IV Last administered on 11/14/18at 21:50; Admin Dose 50 MLS/HR; Start 11/08/18 at 05:30 Acetaminophen (Tylenol Liquid) 650 mg Q6H PRN GTB PAIN AND/OR INFLAMMATION; Start 11/08/18 at 22:00 Albuterol (Proventil 0.083% (Neb)) 2.5 mg Q6H RESP THERAPY HHN Last administered on 11/15/18 08:12; Admin Dose 2.5 MG; Start 11/08/18 at 08:00 Ascorbic Acid (Vitamin C) 500 mg BID GTB Last administered on 11/14/18 23:00; Admin Dose 500 MG; Start 11/08/18 at 09:00 Aspirin (Aspirin) 81 mg BID GTB Last administered on 11/14/18 23:00; Admin Do se 81 MG; Start 11/08/18 at 09:00 Baclofen (Lioresal) 20 mg DAILY GTB Last administered on 11/14/18 09:20; Admin Dose 20 MG; Start 11/08/18 at 09:00 Cholecalciferol (Vitamin D) 2,000 unit DAILY GTB Last administered on 11/14/18 09:21; Admin Dose 2,000 UNIT; Start 11/08/18 at 09:00 Clonazepam (Klonopin) 0.5 mg BID GTB Last administered on 11/14/18 22:59; Admin Dose 0.5 MG; Start 11/08/18 at 09:00 Cyanocobalamin (Vitamin B12) 500 mcg DAILY GTB Last administered on 11/14/18 09:21; Admin Dose 500 MCG; Start 11/08/18 at 09:00 Acetaminophen/ Hydrocodone Bitart ([place] (5/325)) 1 tab Q4H PRN GTB MODERATE PAIN LEVEL 4-6; Start 11/08/18 at 04:30 Miscellaneous Information 1 ea NOTE XX ; Start 11/08/18 at 05:00 Ipratropium [place] (Atrovent 0.02% (Neb)) 0.5 mg Q6HWA RESP THERAPY HHN Last administered on 11/15/18 08:11; Admin Dose 0.5 MG; Start 11/08/18 at 08:00 Lactobacillus Acidophilus/ Rhamnosus (Culturelle) 1 cap BID GTB Last administered on 11/14/18 22:59; Admin Dose 1 CAP; Start 11/08/18 at 09:00 Lansoprazole (Prevacid) 30 mg BID@ GTB Last administered on 11/15/18 06:11; Admin Dose 30 MG; Start 11/08/18 at 06:00 Levetiracetam (Keppra Liquid) 500 mg BID GTB Last administered on 11/14/18 22:58; Admin Dose 500 MG; Start 11/08/18 at 09:00 Metoprolol Tartrate (Lopressor) 25 mg BID GTB Last administered on 11/14/18 09:23; Admin Dose 25 MG; Start 11/08/18 at 09:00 Multivitamins (Multivitamin) 30 ml DAILY GTB Last administered on 11/14/18 09:20; Admin Dose 30 ML; Start 11/08/18 at 09:00 Ondansetron HCl (Zofran Inj) 4 mg Q6H PRN IV NAUSEA AND/OR VOMITING; Start 11/08/18 at 05:30 Polyethylene Glycol (Miralax) 17 gm BID GTB Last administered on 11/14/18 22:59; Admin Dose 17 GM; Start 11/08/18 at 09:00 Sertraline HCl (Zoloft) 50 mg DAILY GTB Last administered on 11/14/18 09:21; Admin Dose 50 MG; Start 11/08/18 at 09:00 Zinc Sulfate (Zinc Sulfate) 220 mg DAILY GTB Last administered on 11/14/18 09:20; Admin Dose 220 MG; Start 11/08/18 at 09:00 Zolpidem Tartrate (Ambien) 5 mg HS PRN PO INSOMNIA; Start 11/08/18 at 05:30 Miscellaneous Information (Pending [facility] Order For Wound Care) This patient donato... PRN PRN XX WOUND CARE; Start 11/08/18 at 05:30 Miscellaneous Information 1 ea NOTE XX ; Start 11/08/18 at 08:00 Glucose (Glutose) 15 gm Q15M PRN PO DECREASED GLUCOSE; Start 11/08/18 at 08:00 Glucose (Glutose) 22.5 gm Q15M PRN PO DECREASED GLUCOSE; Start 11/08/18 at 08:00 Dextrose (D50w Syringe) 25 ml Q15M PRN IV DECREASED GLUCOSE; Start 11/08/18 at 08:00 Dextrose (D50w Syringe) 50 ml Q15M PRN IV DECREASED GLUCOSE; Start 11/08/18 at 08:00 Glucagon (Glucagen) 1 mg Q15M PRN IM DECREASED GLUCOSE; Start 11/08/18 at 08:00 Glucose (Glutose) 15 gm Q15M PRN BUCCAL DECREASED GLUCOSE; Start 11/08/18 at 08:00 IV Flush (NS 10 ml) 10 ml PRN PRN IV IV PROTOCOL; Start 11/08/18 at 18:00 Amiodarone HCl (Cordarone) 200 mg BID PO Last administered on 11/14/18at 22:59; Admin Dose 200 MG; Start 11/09/18 at 21:00 Lisinopril (Zestril) 2.5 mg DAILY GTB Last administered on 11/14/18 09:22; Admin Dose 2.5 MG; Start 11/10/18 at 09:00 Sodium Hypochlorite (Dakins Diluted (40)) 1 applic BID TP Last administered on 11/14/18at 23:01; Admin Dose 1 APPLIC; Start 11/09/18 at 21:00 Ciprofloxacin/ Dextrose 200 ml @ 200 mls/hr Q12 IVPB Last administered on 11/14/18 22:58; Admin Dose 200 MLS/HR; Start 11/10/18 at 21:00 Insulin Aspart (Novolog Insulin Pen) NOVOLOG *MILD* ALGORI... Q6 SC Last administered on 11/15/18at 00:04; Admin Dose 2 UNIT; Start 11/11/18 at 06:00 Sodium Hypochlorite (Dakin'S (Dilute 40)) 1 applic BID TOP Last administered on 11/14/18at 23:01; Admin Dose 1 APPLIC; Start 11/13/18 at 21:00 Metoprolol Tartrate (Lopressor) 5 mg Q4H PRN IV ELEVATED HEART RATE; Start 11/14/18 at 13:00 LINH TEJADA Nov 15, 2018 09:37
[2018-11-15] MEDS: SODIUM HYPOCHLORITE (1/40) 1 LITER BTL TOP SCH (09:38)
[2018-11-15] MEDS: DAKINS 0.0125%(1/40) 473 ML SOLUTION TP SCH (09:38)
[2018-11-15] MEDS: AMIODARONE 200 MG TAB PO SCH (09:39)
[2018-11-15] MEDS: clonAZEPAM 0.5 MG TAB GTB SCH (09:53)
--- NOTE | 2018-11-15 11:00 | CONS ---
Assessment/Plan Assessment/Plan Hospital Course (Demo Recall) # infection of wound, OM of R hip - colonization of the wound of R hip by pseudomonas (wound culture on 10/31/2018) - s/p repeat debridement at [facility] on 11/03/[address]. [address] Pierson, the wound appeared clean during the I&D (my conversation with him on 11/06/2018) - H/o stage sacral decubitus ulcer extending to bilateral buttocks. She reportedly had total hip dislocation and exposed femoral head. CT pelvis showed e/o OM. Pt complete IV vancomycin (09/17/2018-10/29/2018) for sacral OM associated with E. faecalis - H/o sharp excisional debridement down to and including bone of the sacrum on 08/22/2018 and 09/19/2018 - H/o excision of R hip ulcer, girdlestone resection arthroplasty and flap reconstruction 09/23/2018. The surgical pathology showed osteomyelitis of R hip bone, soft tissue cellulitis, and bony margin of excision was free of the disease - XR of R hip on 11/09/2009 showed the remaining R femoral shaft in transverse orientation and with lateral deviation - h/o removal of devitalized/necrotic tissue by Dr. Pierson on 10/07/2018 # sepsis, endovascular infection, respiratory - colonization of the airway by pseudomonas - tracheal aspirate 11/08/18 grew pseudomonas, s/p short course of Cipro 11/10/2018-11/15/2018 - h/o sepsis due to bacteremia and pneumonia - h/o bacteremia: blood cultures grew enterococcus faecalis on 09/17/2018 secondary to R hip wound infection as its wound culture on 09/16/2018 grew E. faecalis as well - H/o recurrent acute on chronic hypoxemic respiratory failure secondary to secretion retention, mucous plugging, major left lung atelectasis, severe shunting - h/o probable aspiration pneumonia. - h/o pneumonia due to pseudomonas on 09/30/2018. s/p Levaquin (10/03/18- 10/07/2018), Meropenem (restart 09/30/2018-10/03/18, 10/12/18 - 10/19/2018) and empiric Amikacin (09/30/18-10/03/18) - H/o intubation on 09/30/2018 - H/o tracheostomy on 10/04/2018 - h/o pseudomonas in urine culture on 09/17/2018 with mild pyuria; treated with Cefepime (09/20/2018-09/25/2018) # renal/ - H/o moderate L hydronephrosis per renal US - funguria, recurrent # heme/neuro - H/o acute on chronic anemia requiring PRBC - Metabolic encephalopathy - Supranuclear palsy # endo, cardiac - Diabetes Mellitus - A fib with RVR - Chronic diastolic HF (EF 40-45% with grade 1 DD per 2D Echo 10/24/2018) - H/o hypertension # allergy - Penicillin allergy (throat swelling) but Pt tolerated cefepime and ceftazidime - Resulted: [id number] <31 Recommendations: - monitor off antibiotics - according to Dr. Pierson who performed the wound debridement, Pt needs woun d care until granulation tissue builds and infection is cleared. Then he would decide if Pt should get repeat closure or not - continue wound care as per Dr. Jesus Wiggins - consider orthopedic consult because the remaining R femoral shaft was in transverse orientation and with lateral deviation on XR Management d/w RN Dunia and with Dr. Breaux Consultation Date/Type/Reason Admit Date/Time Nov 08, 2018 at 03:55 Initial Consult Date 11/09/18 Requesting Provider: NADEEN CHO Date/Time of Note DATE: 11/15/18 TIME: 10:49 24 HR Interval Summary Free Text/Dictation Afebrile; no acute issues; awaiting placement per d/w nursing. Subjective hx not possible: pt non-verbal Exam/Review of Systems Exam Vitals Vital Signs Date Temp Pulse Resp B/P (MAP) Pulse Ox O2 O2 Flow FiO2 Time Delivery Rate 11/15/18 72 09:01 11/15/18 99 5.0 28 08:15 11/15/18 18 Aerosol 08:14 T Tube 11/15/18 98.9 123/58 07:07 (79) Intake and Output 11/14/18 11/14/18 11/15/18 1414:59 22:59 06:59 IntakeIntake Total 1800 ml 1450 ml OutputOutput Total 1400 ml 1000 ml BalanceBalance 400 ml 450 ml Exam Constitutional: non-verbal, frail, other (chronically debilitated and contractured) Head: normocephalic, atraumatic Eyes: nl conjunctiva, nl lids, nl sclera ENMT: nl external ears & nose, nl nasal mucosa & septum, other (limited exam of OP which is pink and somewhat dry with no obvious thrush) Neck: non-tender, other (trach midline and connected to ventilator support) Respiratory: diminished breath sounds (anteriorly); No wheezing Cardiovascular: regular rate and rhythm, nl pulses Gastrointestinal: soft, non-tender, other (GT site c/d/i with TF in progress) Genitourinary - Female: other (F/c draining yellow urine) Musculoskeletal: other (Contractures) Extremities: normal pulses; No edema Neurological: other (eyes closed; obtunded) Skin: nl turgor, other (R hip dressing intact but saturated with smell of Dakin's solution; Reviewed nsg notes and pictures of R hip wound in chart); No rash or lesions Results Result Diagram: 11/14/18 1437 11/14/18 1437 Results 24hrs Laboratory Tests Test 11/14/18 12:22 11/14/18 14:37 11/14/18 17:15 11/14/18 23:48 Bedside Glucose 120 103 189 White Blood Count 7.0 # Red Blood Count 3.29 #L Hemoglobin 8.4 L Hematocrit 27.9 L Mean Corpuscular 84.8 Volume Mean Corpuscular 25.5 L Hemoglobin Mean Corpuscular 30.1 L Hemoglobin Concent Red Cell 18.1 H Distribution Width Platelet Count 243 # Mean Platelet Volume 10.2 Immature 0.400 Granulocytes % Neutrophils % 65.4 Lymphocytes % 18.8 Monocytes % 6.9 Eosinophils % 7.9 H Basophils % 0.6 Nucleated Red Blood 0.0 Cells % Immature 0.030 Granulocytes # Neutrophils # 4.5 Lymphocytes # 1.3 Monocytes # 0.5 Eosinophils # 0.6 H Basophils # 0.0 Nucleated Red Blood 0.0 Cells # Sodium Level 138 Potassium Level 4.3 Chloride Level 107 Carbon Dioxide Level 25 Anion Gap 6 Blood Urea Nitrogen 14 Creatinine 0.34 L Est Glomerular Filtrat Rate mL/min Glucose Level 105 Calcium Level 8.9 Test 11/15/18 06:13 Bedside Glucose [address] pelvis 11/10/2018: 1. Deep decubitus ulcer over the mid and lower sacrum with complete bony destruction of the mid and lower sacrum and most of the coccyx in keeping with osteomyelitis. There is a mild inflammatory phlegmon in the presacral space without an organized abscess. 2. Status post right hip Girdlestone procedure. The proximal right femoral stump is dislocated from the acetabulum and rotated 90 degrees and protrudes into the subcutaneous fat at the site of the skin defect. There is a deep decubitus ulcer in this location. Periosteal reaction along the femoral stump is concerning for osteomyelitis. 3. Heterotopic ossification/dystrophic calcification in the soft tissues at the site of the resected proximal right femur. There is chronic bony remodelling of the right acetabulum. 4. Rectal stool ball measures 7.2 cm and there is constipation in the more upstream colon. Recommend disimpaction. Medications Medication Current Medications Sodium Chloride 1,000 ml @ 50 mls/hr Q20H IV Last administered on 11/14/18 21:50; Admin Dose 50 MLS/HR; Start 11/08/18 at 05:30 Acetaminophen (Tylenol Liquid) 650 mg Q6H PRN GTB PAIN AND/OR INFLAMMATION; Start 11/08/18 at 22:00 Albuterol (Proventil 0.083% (Neb)) 2.5 mg Q6H RESP THERAPY HHN Last administered on 11/15/18 08:12; Admin Dose 2.5 MG; Start 11/08/18 at 08:00 Ascorbic Acid (Vitamin C) 500 mg BID GTB Last administered on 11/15/18 09:37; Admin Dose 500 MG; Start 11/08/18 at 09:00 Aspirin (Aspirin) 81 mg BID GTB Last administered on 11/15/18 09:37; Admin Dose 81 MG; Start 11/08/18 at 09:00 Baclofen (Lioresal) 20 mg DAILY GTB Last administered on 11/15/18 09:37; Admin Dose 20 MG; Start 11/08/18 at 09:00 Cholecalciferol (Vitamin D) 2,000 unit DAILY GTB Last administered on 11/15/18 09:37; Admin Dose 2,000 UNIT; Start 11/08/18 at 09:00 Clonazepam (Klonopin) 0.5 mg BID GTB Last administered on 11/15/18 09:53; Admin Dose 0.5 MG; Start 11/08/18 at 09:00 Cyanocobalamin (Vitamin B12) 500 mcg DAILY GTB Last administered on 11/15/18 09:37; Admin Dose 500 MCG; Start 11/08/18 at 09:00 Acetaminophen/ Hydrocodone Bitart ([place] (5/325)) 1 tab Q4H PRN GTB MODERATE PAIN LEVEL 4-6; Start 11/08/18 at 04:30 Miscellaneous Information 1 ea NOTE XX ; Start 11/08/18 at 05:00 Ipratropium [place] (Atrovent 0.02% (Neb)) 0.5 mg Q6HWA RESP THERAPY HHN Last administered on 11/15/18 08:11; Admin Dose 0.5 MG; Start 11/08/18 at 08:00 Lactobacillus Acidophilus/ Rhamnosus (Culturelle) 1 cap BID GTB Last administered on 11/15/18 09:37; Admin Dose 1 CAP; Start 11/08/18 at 09:00 Lansoprazole (Prevacid) 30 mg BID@,18 GTB Last administered on 11/15/18 06:11; Admin Dose 30 MG; Start 11/08/18 at 06:00 Levetiracetam (Keppra Liquid) 500 mg BID GTB Last administered on 11/15/18 09:36; Admin Dose 500 MG; Start 11/08/18 at 09:00 Metoprolol Tartrate (Lopressor) 25 mg BID GTB Last administered on 11/14/18 09:23; Admin Dose 25 MG; Start 11/08/18 at 09:00 Multivitamins (Multivitamin) 30 ml DAILY GTB Last administered on 11/15/18 09:36; Admin Dose 30 ML; Start 11/08/18 at 09:00 Ondansetron HCl (Zofran Inj) 4 mg Q6H PRN IV NAUSEA AND/OR VOMITING; Start 11/08/18 at 05:30 Polyethylene Glycol (Miralax) 17 gm BID GTB Last administered on 11/15/18 09:36; Admin Dose 17 GM; Start 11/08/18 at 09:00 Sertraline HCl (Zoloft) 50 mg DAILY GTB Last administered on 11/15/18 09:37; Admin Dose 50 MG; Start 11/08/18 at 09:00 Zinc Sulfate (Zinc Sulfate) 220 mg DAILY GTB Last administered on 11/15/18at 09:36; Admin Dose 220 MG; Start 11/08/18 at 09:00 Zolpidem Tartrate (Ambien) 5 mg HS PRN PO INSOMNIA; Start 11/08/18 at 05:30 Miscellaneous Information (Pending Santyl Order For Wound Care) This patient donato... PRN PRN XX WOUND CARE; Start 11/08/18 at 05:30 Miscellaneous Information 1 ea NOTE XX ; Start 11/08/18 at 08:00 Glucose (Glutose) 15 gm Q15M PRN PO DECREASED GLUCOSE; Start 11/08/18 at 08:00 Glucose (Glutose) 22.5 gm Q15M PRN PO DECREASED GLUCOSE; Start 11/08/18 at 08:00 Dextrose (D50w Syringe) 25 ml Q15M PRN IV DECREASED GLUCOSE; Start 11/08/18 at 08:00 Dextrose (D50w Syringe) 50 ml Q15M PRN IV DECREASED GLUCOSE; Start 11/08/18 at 08:00 Glucagon (Glucagen) 1 mg Q15M PRN IM DECREASED GLUCOSE; Start 11/08/18 at 08:00 Glucose (Glutose) 15 gm Q15M PRN BUCCAL DECREASED GLUCOSE; Start 11/08/18 at 08:00 IV Flush (NS 10 ml) 10 ml PRN PRN IV IV PROTOCOL; Start 11/08/18 at 18:00 Amiodarone HCl (Cordarone) 200 mg BID PO Last administered on 11/15/18at 09:39; Admin Dose 200 MG; Start 11/09/18 at 21:00 Lisinopril (Zestril) 2.5 mg DAILY GTB Last administered on 11/14/18at 09:22; Admin Dose 2.5 MG; Start 11/10/18 at 09:00 Sodium Hypochlorite (Dakins Diluted ()) 1 applic BID TP Last administered on 11/15/18at 09:38; Admin Dose 1 APPLIC; Start 11/09/18 at 21:00 Insulin Aspart (Novolog Insulin Pen) NOVOLOG *MILD* ALGORI... Q6 SC Last administered on 11/15/18at 00:04; Admin Dose 2 UNIT; Start 11/11/18 at 06:00 Sodium Hypochlorite (Dakin'S (Dilute )) 1 applic BID TOP Last administered on 11/15/18at 09:38; Admin Dose 1 APPLIC; Start 11/13/18 at 21:00 Metoprolol Tartrate (Lopressor) 5 mg Q4H PRN IV ELEVATED HEART RATE; Start 11/14/18 at 13:00 CONOR CHAND NP Nov 15, 2018 10:59
--- NOTE | 2018-11-15 12:36 | PN ---
Date/Time of Note Date/Time of Note DATE: 11/15/18 TIME: 12:35 Assessment/Plan VTE Prophylaxis Risk score (from [facility])>0 risk: 8 SCD applied (from [facility]): Yes SCD contraindicated: other Pharmacological prophylaxis: other Pharm contraindication: other Lines/Catheters IV Catheter Type (from [facility]): PICC Line Central line still needed: Yes Urinary Cath still in place: Yes Reason Cath still needed: urinary retention, skin wounds contaminated by urine Assessment/Plan Assessment/Plan -Atrial fibrillation/ flutter with rapid ventricular response. Patient is currently in sinus rhythm. Continue amiodarone. Dr. Monson is following in cardiology consultation. -Progressive supranuclear palsy -Respiratory failure with tracheostomy patient is currently on cool aerosol mist. -Chronic encephalopathy -Decubitus ulcer of the right hip and sacrum, status post Girdlestone procedure of the right hip with flap in September 2018, followed by removal of necrotic tissue by Dr. Triplett at [facility]. -Right hip wound infection with OM of R hip, completed treatment with antibiotics. -Wound dehiscence, s/p repeat debridement at [facility] on 11/03/2018. -Diabetes -Chronic diastolic CHF -Dysphagia with GT -Anemia of chronic disease Further recommendations based on clinical course. Plan of care discussed with Dr. Shannon Result Diagram: 11/14/18 1437 11/14/18 1437 Results 24hrs Laboratory Tests Test 11/14/18 14:37 11/14/18 17:15 11/14/18 23:48 11/15/18 06:13 White Blood Count 7.0 # Red Blood Count 3.29 #L Hemoglobin 8.4 L Hematocrit 27.9 L Mean Corpuscular 84.8 Volume Mean Corpuscular 25.5 L Hemoglobin Mean Corpuscular 30.1 L Hemoglobin Concent Red Cell 18.1 H Distribution Width Platelet Count 243 # Mean Platelet Volume 10.2 Immature 0.400 Granulocytes % Neutrophils % 65.4 Lymphocytes % 18.8 Monocytes % 6.9 Eosinophils % 7.9 H Basophils % 0.6 Nucleated Red Blood 0.0 Cells % Immature 0.030 Granulocytes # Neutrophils # 4.5 Lymphocytes # 1.3 Monocytes # 0.5 Eosinophils # 0.6 H Basophils # 0.0 Nucleated Red Blood 0.0 Cells # Sodium Level 138 Potassium Level 4.3 Chloride Level 107 Carbon Dioxide Level 25 Anion Gap 6 Blood Urea Nitrogen 14 Creatinine 0.34 L Est Glomerular Filtrat Rate mL/min Glucose Level 105 Calcium Level 8.9 Bedside Glucose 103 189 108 Test 11/15/18 12:21 Bedside Glucose 141 Subjective 24 Hr Interval Summary Free Text/Dictation nad afebrile anticipate transfer when stable placement pending no new issues reported last night dw staff Subjective hx not possible: pt non-verbal Constitutional: requiring O2 Exam/Review of Systems Exam Vitals Vital Signs Date Temp Pulse Resp B/P (MAP) Pulse Ox O2 O2 Flow FiO2 Time Delivery Rate 11/15/18 98.1 74 19 92/55 (67) 98 11:14 11/15/18 5.0 08:30 11/15/18 28 08:15 11/15/18 Aerosol 08:14 T Tube Intake and Output 11/14/18 11/14/18 11/15/18 1515:00 23:00 07:00 IntakeIntake Total 1800 ml 1450 ml OutputOutput Total 1400 ml 1000 ml BalanceBalance 400 ml 450 ml Constitutional: non-verbal, frail Psych: nl mood/affect Eyes: nl lids, nl sclera ENMT: nl external ears & nose Neck: other (T- piece ) Respiratory: clear to auscultation Cardiovascular: nl pulses, other (s1s2) Gastrointestinal: soft, surgical scars (gt intact), other (t) Musculoskeletal: muscle weakness, range of motion Extremities: edema Neurological: confused Skin: other Results Results 24hrs Laboratory Tests Test 11/14/18 14:37 11/14/18 17:15 11/14/18 23:48 11/15/18 06:13 White Blood Count 7.0 # Red Blood Count 3.29 #L Hemoglobin 8.4 L Hematocrit 27.9 L Mean Corpuscular 84.8 Volume Mean Corpuscular 25.5 L Hemoglobin Mean Corpuscular 30.1 L Hemoglobin Concent Red Cell 18.1 H Distribution Width Platelet Count 243 # Mean Platelet Volume 10.2 Immature 0.400 Granulocytes % Neutrophils % 65.4 Lymphocytes % 18.8 Monocytes % 6.9 Eosinophils % 7.9 H Basophils % 0.6 Nucleated Red Blood 0.0 Cells % Immature 0.030 Granulocytes # Neutrophils # 4.5 Lymphocytes # 1.3 Monocytes # 0.5 Eosinophils # 0.6 H Basophils # 0.0 Nucleated Red Blood 0.0 Cells # Sodium Level 138 Potassium Level 4.3 Chloride Level 107 Carbon Dioxide Level 25 Anion Gap 6 Blood Urea Nitrogen 14 Creatinine 0.34 L Est Glomerular Filtrat Rate mL/min Glucose Level 105 Calcium Level 8.9 Bedside Glucose 103 189 108 Test 11/15/18 12:21 Bedside Glucose 141 Medications Medication Current Medications Sodium Chloride 1,000 ml @ 50 mls/hr Q20H IV Last administered on 11/14/18 21:50; Admin Dose 50 MLS/HR; Start 11/08/18 at 05:30 Acetaminophen (Tylenol Liquid) 650 mg Q6H PRN GTB PAIN AND/OR INFLAMMATION; Start 11/08/18 at 22:00 Albuterol (Proventil 0.083% (Neb)) 2.5 mg Q6H RESP THERAPY HHN Last administered on 11/15/18 08:12; Admin Dose 2.5 MG; Start 11/08/18 at 08:00 Ascorbic Acid (Vitamin C) 500 mg BID GTB Last administered on 11/15/18 09:37; Admin Dose 500 MG; Start 11/08/18 at 09:00 Aspirin (Aspirin) 81 mg BID GTB Last administered on 11/15/18 09:37; Admin Dose 81 MG; Start 11/08/18 at 09:00 Baclofen (Lioresal) 20 mg DAILY GTB Last administered on 11/15/18 09:37; Admin Dose 20 MG; Start 11/08/18 at 09:00 Cholecalciferol (Vitamin D) 2,000 unit DAILY GTB Last administered on 11/15/18 09:37; Admin Dose 2,000 UNIT; Start 11/08/18 at 09:00 Clonazepam (Klonopin) 0.5 mg BID GTB Last administered on 11/15/18 09:53; Admin Dose 0.5 MG; Start 11/08/18 at 09:00 Cyanocobalamin (Vitamin B12) 500 mcg DAILY GTB Last administered on 11/15/18 09:37; Admin Dose 500 MCG; Start 11/08/18 at 09:00 Acetaminophen/ Hydrocodone Bitart ([place] (5/325)) 1 tab Q4H PRN GTB MODERATE PAIN LEVEL 4-6; Start 11/08/18 at 04:30 Miscellaneous Information 1 ea NOTE XX ; Start 11/08/18 at 05:00 Ipratropium [place] (Atrovent 0.02% (Neb)) 0.5 mg Q6HWA RESP THERAPY HHN Last administered on 11/15/18 08:11; Admin Dose 0.5 MG; Start 11/08/18 at 08:00 Lactobacillus Acidophilus/ Rhamnosus (Culturelle) 1 cap BID GTB Last administered on 11/15/18 09:37; Admin Dose 1 CAP; Start 11/08/18 at 09:00 Lansoprazole (Prevacid) 30 mg BID@,18 GTB Last administered on 11/15/18 06:11; Admin Dose 30 MG; Start 11/08/18 at 06:00 Levetiracetam (Keppra Liquid) 500 mg BID GTB Last administered on 11/15/18 09:36; Admin Dose 500 MG; Start 11/08/18 at 09:00 Metoprolol Tartrate (Lopressor) 25 mg BID GTB Last administered on 11/14/18 09:23; Admin Dose 25 MG; Start 11/08/18 at 09:00 Multivitamins (Multivitamin) 30 ml DAILY GTB Last administered on 11/15/18 09:36; Admin Dose 30 ML; Start 11/08/18 at 09:00 Ondansetron HCl (Zofran Inj) 4 mg Q6H PRN IV NAUSEA AND/OR VOMITING; Start 11/08/18 at 05:30 Polyethylene Glycol (Miralax) 17 gm BID GTB Last administered on 11/15/18 09:36; Admin Dose 17 GM; Start 11/08/18 at 09:00 Sertraline HCl (Zoloft) 50 mg DAILY GTB Last administered on 11/15/18 09:37; Admin Dose 50 MG; Start 11/08/18 at 09:00 Zinc Sulfate (Zinc Sulfate) 220 mg DAILY GTB Last administered on 11/15/18 09:36; Admin Dose 220 MG; Start 11/08/18 at 09:00 Zolpidem Tartrate (Ambien) 5 mg HS PRN PO INSOMNIA; Start 11/08/18 at 05:30 [facility] This patient donato... PRN PRN XX WOUND CARE; Start 11/08/18 at 05:30 Miscellaneous Information 1 ea NOTE XX ; Start 11/08/18 at 08:00 Glucose (Glutose) 15 gm Q15M PRN PO DECREASED GLUCOSE; Start 11/08/18 at 08:00 Glucose (Glutose) 22.5 gm Q15M PRN PO DECREASED GLUCOSE; Start 11/08/18 at 08:00 Dextrose (D50w Syringe) 25 ml Q15M PRN IV DECREASED GLUCOSE; Start 11/08/18 at 08:00 Dextrose (D50w Syringe) 50 ml Q15M PRN IV DECREASED GLUCOSE; Start 11/08/18 at 08:00 Glucagon (Glucagen) 1 mg Q15M PRN IM DECREASED GLUCOSE; Start 11/08/18 at 08:00 Glucose (Glutose) 15 gm Q15M PRN BUCCAL DECREASED GLUCOSE; Start 11/08/18 at 08:00 IV Flush (NS 10 ml) 10 ml PRN PRN IV IV PROTOCOL; Start 11/08/18 at 18:00 Amiodarone HCl (Cordarone) 200 mg BID PO Last administered on 11/15/18at 09:39; Admin Dose 200 MG; Start 11/09/18 at 21:00 Lisinopril (Zestril) 2.5 mg DAILY GTB Last administered on 11/14/18 09:22; Admin Dose 2.5 MG; Start 11/10/18 at 09:00 Sodium Hypochlorite (Dakins Diluted (1/40)) 1 applic BID TP Last administered on 11/15/18 09:38; Admin Dose 1 APPLIC; Start 11/09/18 at 21:00 Insulin Aspart (Novolog Insulin Pen) NOVOLOG *MILD* ALGORI... Q6 SC Last administered on 11/15/18at 00:04; Admin Dose 2 UNIT; Start 11/11/18 at 06:00 Sodium Hypochlorite (Dakin'S (Dilute 1/40)) 1 applic BID TOP Last administered on 11/15/18at 09:38; Admin Dose 1 APPLIC; Start 11/13/18 at 21:00 Metoprolol Tartrate (Lopressor) 5 mg Q4H PRN IV ELEVATED HEART RATE; Start 11/14/18 at 13:00 NADEEN CHO Nov 15, 2018 12:36
--- NOTE | 2018-11-15 15:24 | PDOCDIS ---
Discharge Instructions CONDITION [id number] Patient Condition: [id number] Stable HOME CARE INSTRUCTIONS: [id number] Diet Instructions: [id number] ACTIVITY: [id number] Activity Restrictions: [id number] Slowly Increase Activity Do not operate Machinery FOLLOW UP/APPOINTMENTS Follow-up Plan Call 911 or send to nearest Hospital. Dw staff NADEEN CHO Nov 15, 2018 15:24
--- NOTE | 2018-11-15 15:25 | DS ---
Date/Time of Note Date/Time of Note DATE: 11/15/18 TIME: 15:25 Discharge Summary Admission/Discharge Info Admit Date/Time Nov 08, 2018 at 03:55 Discharge Date/Time Discharge Diagnosis -Atrial fibrillation/ flutter with rapid ventricular response. Patient is cur rently in sinus rhythm. Continue amiodarone. Dr. Monson is following in cardiology consultation. -Progressive supranuclear palsy -Respiratory failure with tracheostomy patient is currently on cool aerosol mist. -Chronic encephalopathy -Decubitus ulcer of the right hip and sacrum, status post Girdlestone procedure of the right hip with flap in September 2018, followed by removal of necrotic tissue by Dr. Triplett at [facility]. -Right hip wound infection with OM of R hip, completed treatment with antibiotics. -Wound dehiscence, s/p repeat debridement at [facility] on 11/03/2018. -Diabetes -Chronic diastolic CHF -Dysphagia with GT -Anemia of chronic disease Patient Condition: Stable Hospital Course This is a 73 years old female with progressive subnuclear palsy, chronic encephalopathy, dysphagia status post G-tube, chronic respiratory failure, status post tracheostomy, diabetes mellitus, osteomyelitis of the right humerus decubitus ulcer status post recent debridement. Also past history of cardiomyopathy with mildly depressed left ventricular ejection, approximately 40% to 45% by echo October 2018. Patient got transferred from [facility] as she developed rapid atrial fibrillation and hypertension and was transferred to [facility]. Patient was admitted in ICU. Patient has episodes of atrial fibrillation with rapid ventricular response and recently has converted to sinus rhythm . Patient then transferred to Tele floor. The patient is not able to provide any history 2/2/ being chronic encephalopathic. Patient is admitted in ICU under Dr Campos for further treatment and evaluation. All appropriate consult- Pulmonary, cardiology, general surgery are consulted. Plan of care dw staff. Constitutional: non-verbal, nad, vss Neck: supple, other (trach) Respiratory: diminished breath sounds bilaterally Cardiovascular: regular rate and rhythm, s1s2 Gastrointestinal: soft, non-tender, other (G- tube) Extremities: other (contracted)- BUE/BLE Skin: other (Sacral and right hip wound) Patient is stable to transfer to SNF. DW Dr campso Home Meds Reported Medications [Tramadol] No Conflict Check 06/26/13 [Oxybutynin] No Conflict Check 02/18/13 [Furosemide] No Conflict Check 02/18/13 [Atorvastatin] No Conflict Check 02/18/13 [Lorazepam] No Conflict Check 02/18/13 Estrogens Conjugated* (Premarin*) 0.45 Mg Tablet, 1.5 MG PO DAILY 02/18/13 Follow-up Plan Call 911 or send to nearest Hospital. staff Primary Care Provider Nirmal Campos MD Time spent on discharge: < 30 minutes Pending Labs Laboratory Tests Test 11/14/18 17:15 11/14/18 23:48 11/15/18 06:13 11/15/18 12:21 Bedside 103 189 108 141 Glucose mg/dL (70-220) mg/dL (70-220) mg/dL (70-220) mg/dL (70-220) NADEEN CHO Nov 15, 2018 15:25
[2018-11-15] MEDS: SOD CHLORIDE 0.9% 1,000 ML IV SCH (16:50)
--- NOTE | 2018-11-15 17:11 | CONS ---
Assessment/Plan Assessment/Plan Hospital Course (Demo Recall) IMPRESSION: 1. Paroxysmal atrial fibrillation flutter with rapid ventricular response, currently in sinus rhythm but as of this morning was in rapid atrial fibrillation and flutter. 2. Hypotension, borderline. 3. Congestive heart failure, systolic, acute on chronic. 4. Cardiomyopathy with mildly depressed left ventricular ejection fraction, last approximately 40% to 45% by echo 10/2018. 5. Encephalopathy, chronic. 6. Progressive supranuclear palsy. 7. Anemia. 8. Diabetes mellitus. Recc: -Now on tele -Continue po amio now in attempt to maintain SR -BB/ACEI as tolerated only -Follow volume status closely -pulmonary toliet Consultation Date/Type/Reason Admit Date/Time Nov 08, 2018 at 03:55 Initial Consult Date 11/08/18 Type of Consult Cardiology Reason for Consultation PAF Requesting Provider: NADEEN CHO Date/Time of Note DATE: 11/15/18 TIME: 17:09 Exam/Review of Systems Vital Signs Vitals Vital Signs Date Temp Pulse Resp B/P (MAP) Pulse Ox O2 O2 Flow FiO2 Time Delivery Rate 11/15/18 72 16:30 11/15/18 98.9 19 105/55 98 15:42 (72) 11/15/18 Aerosol 5.0 14:24 T Tube 11/15/18 28 08:15 Intake and Output 11/14/18 11/14/18 11/15/18 1515:00 23:00 07:00 IntakeIntake Total 1800 ml 1450 ml OutputOutput Total 1400 ml 1000 ml BalanceBalance 400 ml 450 ml Exam Exam Review of Systems: CONSTITUTIONAL: No fevers, chills. PULMONARY: No sob CARDIOVASCULAR: No chest pain/palpitations GASTROINTESTINAL: No nausea/vomiting. GENITOURINARY: No hematuria/dysuria. MUSCULOSKELETAL: No myagias/arthalgias. PSYCHIATRIC: The patient denies depression. NEUROLOGIC: encaphalopathic Constitutional: other (encepahlopathy) Head: normocephalic ENMT: mucosa pink and moist Neck: supple, jvd (9 cm water) Respiratory: diminished breath sounds (at bases/B) Cardiovascular: regular rate and rhythm Gastrointestinal: soft, non-tender Musculoskeletal: muscle weakness (generalized) Extremities: edema (trace/B) Labs Result Diagram: 11/14/18 1437 11/14/18 1437 Results 24hrs Laboratory Tests Test 11/14/18 17:15 11/14/18 23:48 11/15/18 06:13 11/15/18 12:21 Bedside Glucose 103 189 108 141 Medications Medications Current Medications Sodium Chloride 1,000 ml @ 50 mls/hr Q20H IV Last administered on 11/15/18 16:50; Admin Dose 50 MLS/HR; Start 11/08/18 at 05:30 Acetaminophen (Tylenol Liquid) 650 mg Q6H PRN GTB PAIN AND/OR INFLAMMATION; Start 11/08/18 at 22:00 Albuterol (Proventil 0.083% (Neb)) 2.5 mg Q6H RESP THERAPY HHN Last administered on 11/15/18 14:24; Admin Dose 2.5 MG; Start 11/08/18 at 08:00 Ascorbic Acid (Vitamin C) 500 mg BID GTB Last administered on 11/15/18 09:37; Admin Dose 500 MG; Start 11/08/18 at 09:00 Aspirin (Aspirin) 81 mg BID GTB Last administered on 11/15/18 09:37; Admin Dose 81 MG; Start 11/08/18 at 09:00 Baclofen (Lioresal) 20 mg DAILY GTB Last administered on 11/15/18 09:37; Admin Dose 20 MG; Start 11/08/18 at 09:00 Cholecalciferol (Vitamin D) 2,000 unit DAILY GTB Last administered on 11/15/18 09:37; Admin Dose 2,000 UNIT; Start 11/08/18 at 09:00 Clonazepam (Klonopin) 0.5 mg BID GTB Last administered on 11/15/18 09:53; Admin Dose 0.5 MG; Start 11/08/18 at 09:00 Cyanocobalamin (Vitamin B12) 500 mcg DAILY GTB Last administered on 11/15/18 09:37; Admin Dose 500 MCG; Start 11/08/18 at 09:00 Acetaminophen/ Hydrocodone Bitart ([place] (5/325)) 1 tab Q4H PRN GTB MODERATE PAIN LEVEL 4-6; Start 11/08/18 at 04:30 Miscellaneous Information 1 ea NOTE XX ; Start 11/08/18 at 05:00 Ipratropium [place] (Atrovent 0.02% (Neb)) 0.5 mg Q6HWA RESP THERAPY HHN Last administered on 11/15/18 14:23; Admin Dose 0.5 MG; Start 11/08/18 at 08:00 Lactobacillus Acidophilus/ Rhamnosus (Culturelle) 1 cap BID GTB Last administered on 11/15/18 09:37; Admin Dose 1 CAP; Start 11/08/18 at 09:00 Lansoprazole (Prevacid) 30 mg BID@18 GTB Last administered on 11/15/18 06:11; Admin Dose 30 MG; Start 11/08/18 at 06:00 Levetiracetam (Keppra Liquid) 500 mg BID GTB Last administered on 11/15/18 09:36; Admin Dose 500 MG; Start 11/08/18 at 09:00 Metoprolol Tartrate (Lopressor) 25 mg BID GTB Last administered on 11/14/18 09:23; Admin Dose 25 MG; Start 11/08/18 at 09:00 Multivitamins (Multivitamin) 30 ml DAILY GTB Last administered on 11/15/18 09:36; Admin Dose 30 ML; Start 11/08/18 at 09:00 Ondansetron HCl (Zofran Inj) 4 mg Q6H PRN IV NAUSEA AND/OR VOMITING; Start 11/08/18 at 05:30 Polyethylene Glycol (Miralax) 17 gm BID GTB Last administered on 11/15/18 09:36; Admin Dose 17 GM; Start 11/08/18 at 09:00 Sertraline HCl (Zoloft) 50 mg DAILY GTB Last administered on 11/15/18 09:37; Admin Dose 50 MG; Start 11/08/18 at 09:00 Zinc Sulfate (Zinc Sulfate) 220 mg DAILY GTB Last administered on 11/15/18 09:36; Admin Dose 220 MG; Start 11/08/18 at 09:00 Zolpidem Tartrate (Ambien) 5 mg HS PRN PO INSOMNIA; Start 11/08/18 at 05:30 Miscellaneous Information (Pending Santyl Order For Wound Care) This patient donato... PRN PRN XX WOUND CARE; Start 11/08/18 at 05:30 Miscellaneous Information 1 ea NOTE XX ; Start 11/08/18 at 08:00 Glucose (Glutose) 15 gm Q15M PRN PO DECREASED GLUCOSE; Start 11/08/18 at 08:00 Glucose (Glutose) 22.5 gm Q15M PRN PO DECREASED GLUCOSE; Start 11/08/18 at 08:00 Dextrose (D50w Syringe) 25 ml Q15M PRN IV DECREASED GLUCOSE; Start 11/08/18 at 08:00 Dextrose (D50w Syringe) 50 ml Q15M PRN IV DECREASED GLUCOSE; Start 11/08/18 at 08:00 Glucagon (Glucagen) 1 mg Q15M PRN IM DECREASED GLUCOSE; Start 11/08/18 at 08:00 Glucose (Glutose) 15 gm Q15M PRN BUCCAL DECREASED GLUCOSE; Start 11/08/18 at 08:00 IV Flush (NS 10 ml) 10 ml PRN PRN IV IV PROTOCOL; Start 11/08/18 at 18:00 Amiodarone HCl (Cordarone) 200 mg BID PO Last administered on 11/15/18at 09:39; Admin Dose 200 MG; Start 11/09/18 at 21:00 Lisinopril (Zestril) 2.5 mg DAILY GTB Last administered on 11/14/18 09:22; Admin Dose 2.5 MG; Start 11/10/18 at 09:00 Sodium Hypochlorite (Dakins Diluted (1/40)) 1 applic BID TP Last administered on 11/15/18 09:38; Admin Dose 1 APPLIC; Start 11/09/18 at 21:00 Insulin Aspart (Novolog Insulin Pen) NOVOLOG *MILD* ALGORI... Q6 SC Last administered on 11/15/18 12:30; Admin Dose 1 UNIT; Start 11/11/18 at 06:00 Sodium Hypochlorite (Dakin'S (Dilute 1/40)) 1 applic BID TOP Last administered on 11/15/18 09:38; Admin Dose 1 APPLIC; Start 11/13/18 at 21:00 Metoprolol Tartrate (Lopressor) 5 mg Q4H PRN IV ELEVATED HEART RATE; Start 11/14/18 at 13:00 MAITE VAZQUEZ Nov 15, 2018 17:11
== END 2018-11-15 20:40 | disposition short-term general hospital (02) | DRG 871 ==
LOC: ICU 03:55 → 6WM 11-09 21:30
PROVIDERS: ADMIT Internal Medicine; ATTEND Internal Medicine
PROC: 02HV33Z Insertion of Infusion Device into Superior Vena Cava, Percutaneous Approach (ICD-10-PCS; principal; 2018-11-08)
DX: A41.9 Sepsis, unspecified organism (principal); L89.154 Pressure ulcer of sacral region, stage 4; L89.314 Pressure ulcer of right buttock, stage 4; I50.23 Acute on chronic systolic (congestive) heart failure; G93.41 Metabolic encephalopathy; J96.10 Chronic respiratory failure, unspecified whether with hypoxia or hypercapnia; I48.92 Unspecified atrial flutter; G23.1 Progressive supranuclear ophthalmoplegia [Steele-Richardson-Olszewski]; I42.9 Cardiomyopathy, unspecified; M86.9 Osteomyelitis, unspecified; R65.20 Severe sepsis without septic shock; I11.0 Hypertensive heart disease with heart failure; R79.89 Other specified abnormal findings of blood chemistry; Z86.73 Personal history of transient ischemic attack (TIA), and cerebral infarction without residual deficits; E11.9 Type 2 diabetes mellitus without complications; R13.10 Dysphagia, unspecified; D63.8 Anemia in other chronic diseases classified elsewhere; G40.909 Epilepsy, unspecified, not intractable, without status epilepticus; F03.90 Unspecified dementia, unspecified severity, without behavioral disturbance, psychotic disturbance, mood disturbance, and anxiety; I48.0 Paroxysmal atrial fibrillation; Z93.1 Gastrostomy status; Z93.0 Tracheostomy status; Z88.0 Allergy status to penicillin; D50.9 Iron deficiency anemia, unspecified
CPT/HCPCS: 36569; 36600; 71045; 72192; 73510; 76937; 80048; 80053; 81001; 82803; 82962; 83605; 83735; 84100; 84484; 85025; 87070; 87081; 87086; 93005; 94640; 94664; J0282; J0713; J0744; J1815; J7030; J7060; P9047

== ENCOUNTER 2018-11-26 01:10 | Inpatient (IN) | payer MEDICARE, BC ==
[~2018-11-26] VITALS: Ht 167.6 cm; Wt 61.2 kg
[2018-11-26] VITALS (14 sets, daily range): BP systolic 58–210; BP diastolic 16–169; PULSE 109–124; RESP 20–34; Ht 167.6 cm; Wt 61.2 kg
[2018-11-26] MEDS ORDERED: ACETAMINOPHEN 650 MG SUPP PR STA (01:18)
[2018-11-26] MEDS ORDERED: SODIUM CHLORIDE 0.9% 1L BAG IV* STA ×2 (01:18→15:29)
[2018-11-26] MEDS ORDERED: VANCOMYCIN 1 GM (PMX) 250 ML IVPB ONE (01:30)
[2018-11-26] MEDS ORDERED: LEVOFLOXACIN 750MG/D5W (PMX) 150 ML IVPB ONE (01:30)
[2018-11-26] MEDS ORDERED: LORAZEPAM 2 MG INJ ONE ×2 (02:11→02:13)
[2018-11-26] MEDS ORDERED: METOPROLOL 5 MG INJ IV ONE (02:30)
[2018-11-26] MEDS ORDERED: LORAZEPAM 2 MG INJ IV ONE ×2 (02:30)
--- NOTE | 2018-11-26 04:19 | ERD ---
ER Documentation Chief Complaint Chief Complaint fever HPI This is a 73-year-old female trach to blow-by who comes in via EMS for fever. Patient cannot provide any relevant history. History is per EMS when she [facility] transfer sheet which is also limited. Past medical history is extensive and has been reviewed. ROS All systems reviewed and are negative except as per history of present illness. Medications Home Meds Reported Medications [Tramadol] No Conflict Check 06/26/13 [Oxybutynin] No Conflict Check 02/18/13 [Furosemide] No Conflict Check 02/18/13 [Atorvastatin] No Conflict Check 02/18/13 [Lorazepam] No Conflict Check 02/18/13 Estrogens Conjugated* (Premarin*) 0.45 Mg Tablet, 1.5 MG PO DAILY 02/18/13 Allergies Allergies: Coded Allergies: Penicillins (Verified Allergy, Unknown, 07/06/13) morphine (Verified Adverse Reaction, Mild, "LOOPY", 10/08/18) Uncoded Allergies: PLASTIC TAPE (Allergy, Unknown, 04/01/07) PMhx/Soc History of Surgery: Yes (HYSERECTOMY) Anesthesia Reaction: No Hx Neurological Disorder: Yes (STROKE,) Hx Respiratory Disorders: No Hx Cardiac Disorders: No Hx Psychiatric Problems: No Hx Miscellaneous Medical Probl: No Hx Alcohol Use: No Hx Substance Use: No Hx Tobacco Use: No Smoking Status: Never smoker Physical Exam Vitals Vital Signs Date Temp Pulse Resp B/P (MAP) Pulse Ox O2 O2 Flow FiO2 Time Delivery Rate 11/26/18 102.1 01:52 11/26/18 102.4 165 33 152/115 99 Trach 01:31 (127) Collar 11/26/18 102.4 169 30 154/112 99 01:16 (126) Physical Exam Const: No acute distress Head: Atraumatic Eyes: Normal Conjunctiva ENT: Trach site clean dry and intact Neck: Full range of motion. No meningismus. Resp: Clear to auscultation bilaterally Cardio: Regular rate and rhythm, no murmurs Abd: Soft, non tender, non distended. Normal bowel sounds Skin: Large 8 x 8 area stage IV decubitus noted on sacral/coccyx area Back: No midline or flank tenderness Ext: No cyanosis, or edema Neur: Awake and alert Psych: Normal Mood and Affect Result Diagram: 11/26/188 11/26/18 0128 Results 24 hrs Laboratory Tests Test 11/26/18 01:26 11/26/18 01:28 11/26/18 01:43 POC Venous Lactate 2.3 mmol/L White Blood Count 24.6 10^3/ul Red Blood Count 2.94 10^6/ul Hemoglobin 7.5 g/dl Hematocrit 25.1 % Mean Corpuscular Volume 85.4 fl Mean Corpuscular Hemoglobin 25.5 pg Mean Corpuscular 29.9 g/dl Hemoglobin Concent Red Cell Distribution Width 18.2 % Platelet Count 272 10^3/UL Mean Platelet Volume 11.4 fl Immature Granulocytes % 2.400 % Neutrophils % % Segmented Neutrophils % (Manual) 82 % Band Neutrophils % (Manual) 14 % Lymphocytes % % Lymphocytes % (Manual) 3 % Monocytes % % Monocytes % (Manual) 1 % Eosinophils % % Basophils % % Nucleated Red Blood Cells % 0.0 /100WBC Immature Granulocytes # 0.580 10^3/ul Neutrophils # 10^3/ul Neutrophils # (Manual) 21.0 10^3/ul Band Neutrophils # 3.4 10^3/ul Lymphocytes (Manual) 0.7 10^3/ul Lymphocytes # 10^3/ul Monocytes # 10^3/ul Monocytes # (Manual) 0.2 10^3/ul Eosinophils # 10^3/ul Basophils # 10^3/ul Nucleated Red Blood Cells # 10^3/ul Platelet Estimate NORMAL Polychromasia 3+ Anisocytosis 1+ Microcytosis 1+ Prothrombin Time 19.1 Sec Prothrombin Time Ratio 1.5 INR International 1.60 Normalized Ratio Activated Partial Thromboplast 35.3 Sec Time Sodium Level 147 mmol/L Potassium Level 5.5 mmol/L Chloride Level 106 mmol/L Carbon Dioxide Level 30 mmol/L Anion Gap 11 Blood Urea Nitrogen 75 mg/dl Creatinine 0.87 mg/dl Est Glomerular Filtrat mL/min Rate mL/min Glucose Level 429 mg/dl Calcium Level 8.5 mg/dl Total Bilirubin 0.1 mg/dl Direct Bilirubin 0.00 mg/dl Indirect Bilirubin 0.1 mg/dl Aspartate Amino 34 IU/L Transf (AST/SGOT) Alanine 23 IU/L Aminotransferase (ALT/SGPT) Alkaline Phosphatase 150 IU/L Troponin I < 0.012 ng/ml Total Protein 6.9 g/dl Albumin 3.3 g/dl Globulin 3.60 g/dl Albumin/Globulin Ratio 0.91 Urine Color NEW Urine Clarity CLOUDY Urine pH 5.0 Urine Specific [place] 1.021 Urine Ketones NEGATIVE mg/dL Urine Nitrite NEGATIVE mg/dL Urine Bilirubin NEGATIVE mg/dL Urine Urobilinogen NEGATIVE mg/dL Urine Leukocyte Esterase TRACE Vivian/ul Urine Microscopic RBC > 182 /HPF Urine Microscopic WBC 36 /HPF Urine Squamous Epithelial Cells FEW /HPF Urine Bacteria FEW /HPF Urine Mucus MODERATE /HPF Urine Yeast (Budding) FEW /HPF Urine Hemoglobin 3+ mg/dL Urine Glucose 1+ mg/dL Urine Total Protein 1+ mg/dl Current Medications Medications Dose Sig/Karina Start Time Status Last (Trade) Ordered Route PRN Stop Time Admin Dose Reason Admin Sodium 1,650 ml BOLUS OVER 2 11/26/18 DC 11/26/18 Chloride HOURS STAT 01:18 01:30 (NS) IV* 11/26/18 01:20 650 mg ONCE STAT 11/26/18 DC 11/26/18 Acetaminophen TX 01:18 01:52 (Tylenol 11/26/18 01:20 Supp) Vancomycin 250 ml @ ONCE ONCE 11/26/18 DC 11/26/18 HCl 125 mls/hr IVPB 01:30 02:36 11/26/18 03:29 150 ml @ ONCE ONCE 11/26/18 DC 11/26/18 Levofloxacin/ 100 mls/hr IVPB 01:30 01:51 Dextrose 11/26/18 02:59 Lorazepam 1 mg ONCE ONCE 11/26/18 DC (Ativan) IV 02:30 11/26/18 02:36 Lorazepam 2 mg STK-MED 11/26/18 DC (Ativan) ONCE .ROUTE 02:11 11/26/18 02:12 Lorazepam 1 mg ONCE ONCE 11/26/18 DC (Ativan) IV 02:30 11/26/18 02:31 Lorazepam 2 mg STK-MED 11/26/18 DC (Ativan) ONCE .ROUTE 02:13 11/26/18 02:14 Metoprolol 5 mg ONCE ONCE 11/26/18 DC 11/26/18 Tartrate IV 02:30 03:00 (Lopressor) 11/26/18 02:31 Procedures/MDM EKG: Rate/Rhythm: Irregular rhythm, tachycardic rate QRS, ST, T-waves: [No changes consistent w/ acute ischemia] Impression: A. fib with RVR Chest X-ray 1V Interpreted by me: Soft Tissue: No acute abnormalities Bones: No acute abnormalities Mediastinum/Cardiac Silhouette/Lungs: [No acute abnormalities] Patient's infectious symptoms have not stabilized and the patient is at risk of rapid decompensation. The patient will be admitted for careful hydration, antibiotic therapy, and infectious source control. Severe Sepsis Assessment: Infectious Source: [pyleonephritis] End organ damage indicated by: [Lactate > 2.0 mmol/L Hypotension( SBP < 90 or >40 mmHG drop or MAP < 65) Severe Sepsis Managment: Blood Cultures X 2 before broad spectrum antibiotics initiated within 3 hours of recognition. Sepsis recognized at 1:18 AM 30 ml/kg NS bolus Completed Initial Lactate: [2.5 Repeat Lactate pending Critical Care: Time: 45 minutes, independent of any separately billable procedural time Treatments/Evaluations: Emergent fluid management, while maintaining close respiratory support. Immediate broad spectrum antibiotic therapy. Simultaneous assessment for possible sources in order to direct therapy. Consideration for invasive and chemical support to prevent respiratory or cardiac collapse. Septic Shock Assessment (1 hour post 30 ml/kg fluid bolus): Hypotension (SBP < 90 or 40 mmHg drop, MAP < 65): [No] Lactic acid > 4.0 [No] Perfusion Reassessment for Septic Shock: Temp 99.6, pulse 88, respiratory rate 16, blood pressure 95/49 Heart Exam: [Tachycardic] Lung Exam: [No Crackles] Capillary Refill: [Delayed] Peripheral Pulses: [Radially present] Skin: [Mottled, pale] Accepting Care Team: Current data and ongoing care discussed. Time: 3 AM Primary Provider: robert Consulting: Deferred to inpatient team Outstanding Data: none Departure Diagnosis: Primary Impression: Sepsis Sepsis type: sepsis due to unspecified organism Qualified Codes: A41.9 - Sepsis, unspecified organism Condition: Critical DOMI BARRON Nov 26, 2018 04:19
[2018-11-26] MEDS ORDERED: LEVETIRACETAM 1000 MG (PMX) 100 ML IVPB ONE (05:00)
[2018-11-26] MEDS ORDERED: ZINC220T GTB (05:09)
[2018-11-26] MEDS ORDERED: EPO10ESRD SC (05:09)
[2018-11-26] MEDS ORDERED: BACL10TA GTB (05:09)
[2018-11-26] MEDS ORDERED: CHOL200073 GTB (05:09)
[2018-11-26] MEDS ORDERED: ASPI-817 GTB (05:09)
[2018-11-26] MEDS ORDERED: CLON0.5T14 GTB (05:09)
[2018-11-26] MEDS ORDERED: LACTINEXG GTB (05:09)
[2018-11-26] MEDS ORDERED: AMIO200T4 GTB (05:09)
[2018-11-26] MEDS ORDERED: ZOLP5TAB7 GTB (05:09)
[2018-11-26] MEDS ORDERED: LEVE500S8 GTB (05:09)
[2018-11-26] MEDS ORDERED: IPRA3AMP29 INHALATION (05:09)
[2018-11-26] MEDS ORDERED: FERR220S13 PO (05:09)
[2018-11-26] MEDS ORDERED: CYAN100080 GTB (05:09)
[2018-11-26] MEDS ORDERED: HYDR-4011 GTB (05:23)
[2018-11-26] MEDS ORDERED: POLY17PO6 GTB (05:23)
[2018-11-26] MEDS ORDERED: NOVO3I SC (05:23)
[2018-11-26] MEDS ORDERED: LANS30CA GTB (05:23)
[2018-11-26] MEDS ORDERED: METO-448 GTB (05:23)
[2018-11-26] MEDS ORDERED: SERT50TA6 GTB (05:23)
[2018-11-26] MEDS ORDERED: PROT946L GTB (05:23)
[2018-11-26] MEDS ORDERED: LISI-313 GTB (05:23)
[2018-11-26] MEDS ORDERED: LANT3I SC (05:23)
[2018-11-26] MEDS ORDERED: ONDA4TAB95 PO (05:25)
[2018-11-26] MEDS ORDERED: ACET325T45 GTB (05:25)
[2018-11-26] MEDS ORDERED: ASCO500C7 GTB (05:25)
[2018-11-26] MEDS ORDERED: SOD CHLORIDE 0.9% 500 ML IV ONE (11:30)
[2018-11-26] MEDS ORDERED: ACETAMINOPHEN 650MG/20.3ML CUP NGT ONE (11:30)
[2018-11-26] MEDS: SOD CHLORIDE 0.9% 1,000 ML IV SCH (11:42)
[2018-11-26] MEDS ORDERED: LIDOCAINE 1% (MPF) 5 ML VIAL SC ONE ×2 (13:00→13:30)
[2018-11-26] MEDS ORDERED: CEFEPIME 1GM/50 ML (PMX) 50 ML IVPB SCH (13:00)
[2018-11-26] MEDS ORDERED: VANCOMYCIN IV PER PHARMACY XX SCH ×2 (13:00→18:00)
--- NOTE | 2018-11-26 13:19 | QN ---
Documentation Comment Observation Note Subjective: The patient was signed out to me by Dr. De Luna pending admission to the hospital. Briefly, this is a 73-year-old female with multiple comorbidities presenting with severe sepsis from pyelonephritis. While in the emergency department, the patient's blood pressure started to drop and the patient started to decompensate. Given the drop in blood pressure despite sepsis bolus, and concerned about septic shock. I do feel that the patient requires central access emergently for pressor medications. Patient was observed for at least 4 hours under my care. Family history: As indicated on the initial history and physical of this ER visit Objective: Vital signs reviewed Const: Thin, cachectic, minimally responsive Head: Normocephalic, Atraumatic Eyes: Normal Conjunctiva. ENT: Normal External Ears, Nose. Dry mucous membranes Neck: Tracheostomy in place. Resp: Symmetric chest wall tobar, no audible wheezes Cardio: Regular rate. Irregularly irregular rhythm. Abd: Non distended Skin: No petechiae or rashes. Back: Sacral decubitus ulcer. Ext: No cyanosis, or edema. All extremity atrophy. Neur: Awake. Minimal responsiveness, chronic. Assessment: Septic shock, pyelonephritis Plan: Continue fluid resuscitation, IV antibiotic administration, PICC line placement, pressor medication SEPSIS NOTE SIRS Criteria: Fever, tachycardia, tachypnea Infectious source: Pyelonephritis End organ damage indicated by: Lactate > 2.0 mmol/L, Hypotension SBP < 90 OR Drop >40 mmHG OR MAP < 65, AHRF Sat < 92% without oxygen, Cr > 2.0, INR > 1.5, Plt < 100, TBili > 2 SEPSIS MANAGEMENT Time to recognize sepsis: Please see initial provider note Time to recognize severe sepsis: Please see provider note Time to recognize septic shock: 12:30 PM on November 26, 2018. 3 HOUR BUNDLE Blood cultures x 2 before abx: Yes 30 ml/kg NS bolus completed Initial lactate 2.3 Repeat lactate 2.3 SEPTIC SHOCK ASSESSMENT: NO lactic acid > 4.0 YES persistent hypotension (SBP < 90 or 40 mmHg drop, MAP < 65) despite 30 L/kg IV fluid bolus VOLUME REASSESSMENT FOR SEPTIC SHOCK: Reevaluation Time: 12:57PM Temp 101.6, BP 77/47, HR 83, RR31, Pox 99 Trach Collar Heart regular rate, irregular rhythm Lungs faint bibasilar rales Skin Warm & dry. Large sacral decubitus ulcer. Cap Refill Less than 2 seconds Pulses faint but radially present PERSISTENT HYPOTENSION TREATMENT: Comfort care no Central line required. A PICC line will be placed emergently Vasopressors levophed I considered further perfusion assessment with CVP measurement, SCVO2, bedside ultrasound volume assessment, passive leg raise, trial of further fluid bolus. And proceeded with 30 ml/kg fluid bolus of NSS, broad spectrum antibiotics, and admission. CRITICAL CARE Critical care time 31 minutes Emergent fluid management while maintaining close respiratory support. P rovision of immediate and broad-spectrum antibiotic therapy. Simultaneous assessment for possible sources in order to direct targeted therapy. Consideration for invasive and chemical support to prevent cardiopulmonary collapse. Critical care time is independent of procedures performed. ADMISSION Patient admitted to Dr. Shannon. Patient upgraded to ICU. CLAUDE MERCER MD Nov 26, 2018 13:12
[2018-11-26] MEDS ORDERED: VANCOMYCIN 750 MG (PMX) 250 ML IVPB SCH ×2 (15:00→22:00)
[2018-11-26] MEDS ORDERED: VANCOMYCIN 500 MG (PMX) 100 ML IVPB SCH (15:00)
[2018-11-26] MEDS: NORepinephrine 8MG/250 ML (PMX 250 ML IV SCH (15:09)
[2018-11-26] MEDS ORDERED: CEFTAZIDIME 2GM/50 ML (PMX) 50 ML IVPB ONE (16:00)
--- NOTE | 2018-11-26 16:27 | CONS ---
Assessment/Plan Assessment/Plan Hospital Course (Demo Recall) # sepsis, endovascular infection, respiratory - septic shock due to probable UTI +/- HCAP - colonization of the airway by pseudomonas - tracheal aspirate 11/08/18 grew pseudomonas, s/p short course of cipro 11/10/2018-11/15/2018 - h/o sepsis due to bacteremia and pneumonia - h/o bacteremia: blood cultures grew enterococcus faecalis on 09/17/2018 secondary to R hip wound infection as its wound culture on 09/16/2018 grew E. faecalis as well - h/o recurrent acute on chronic hypoxemic respiratory failure secondary to secretion retention, mucous plugging, major left lung atelectasis, severe shunting - h/o probable aspiration pneumonia. - h/o pneumonia due to pseudomonas on 09/30/2018. s/p Levaquin (10/03/18- 10/07/2018), Meropenem (restart 09/30/2018-10/03/18, 10/12/18 - 10/19/2018) and empiric Amikacin (09/30/18-10/03/18) - H/o intubation on 09/30/2018 - H/o tracheostomy on 10/04/2018 - h/o pseudomonas in urine culture on 09/17/2018 with mild pyuria; treated with Cefepime (09/20/2018-09/25/2018) # infection of wound, OM of R hip - h/o colonization of the wound of R hip by pseudomonas (wound culture on 10/05) - h/o repeat debridement at [facility] on 11/03/[address]. [address]. Pierson, the wound appeared clean during the I&D (my conversation with him on 11/06/2018) - H/o stage sacral decubitus ulcer extending to bilateral buttocks. She reportedly had total hip dislocation and exposed femoral head. CT pelvis showed e/o OM. Pt complete IV vancomycin (09/17/2018-10/29/2018) for sacral OM associated with E. faecalis - H/o sharp excisional debridement down to and including bone of the sacrum on 08/22/2018 and 09/19/2018 - H/o excision of R hip ulcer, girdlestone resection arthroplasty and flap recon struction 09/23/2018. The surgical pathology showed osteomyelitis of R hip bone, soft tissue cellulitis, and bony margin of excision was free of the disease - XR of R hip on 11/09/2009 showed the remaining R femoral shaft in transverse orientation and with lateral deviation - h/o removal of devitalized/necrotic tissue by Dr. Pierson on 10/07/2018 # renal/ - probable UTI (hematuria on 11/26/2018) - H/o moderate L hydronephrosis per renal US - funguria, recurrent # heme/neuro - H/o acute on chronic anemia requiring PRBC - Metabolic encephalopathy - Supranuclear palsy # endo, cardiac - Diabetes Mellitus - A fib with RVR - Chronic diastolic HF (EF 40-45% with grade 1 DD per 2D Echo 10/24/2018) - H/o hypertension # allergy - Penicillin allergy (throat swelling) but Pt tolerates cefepime and ceftazidime - Resulted: [id number] <31 Recommendations: - pending results: cultures of blood and urine - ordered: culture of tracheal aspirate and wound - I recommend wound care consult by Dr. Jesus Wiggins (he was on this Pt's case before) - continue IV vancomycin and change cefepime to ceftazidime (Pt's strains of pseudomonas has variety of sensitivity) - according to Dr. Pierson who performed the wound debridement, Pt needs wound care until granulation tissue builds and infection is cleared. Then he would decide if Pt should get repeat closure or not management d/w Pt's RN Catarina, [employer] Chapito the critical care time I took to care for this Pt day was from 1510 to 1550 Consultation Date/Type/Reason Admit Date/Time Date of Consultation: Nov 26, 2018 Type of Consult ID Reason for Consultation septic shock Requesting Provider: NADEEN URIARTE Date/Time of Note DATE: 11/26/18 TIME: 15:59 Hx of Present Illness This is a 73 yo female with DM, progressive supranuclear palsy, G tube dependent Pt who was originally admitted at [facility] in 2019 due to fever and acute hypoxic resp failure. Pt had sacral decubitus ulcer extending to bilateral buttocks. She reportedly had total hip dislocation and exposed femoral head. CT pelvis showed e/o OM. She underwent sharp excisional debridement down to and including bone of the sacrum on 08/22/2018 and 09/19/2018; excision of R hip ulcer, Girdlestone resection arthroplasty and flap reconstruction 09/23/2018. The surgical pathology showed osteomyelitis of R hip bone, soft tissue cellulitis, and bony margin of excision was free of the disease. Her blood cultures grew enterococcus faecalis on 09/17/2018 secondary to R hip wound infection as its wound culture on 09/16/2018 grew E. faecalis as well. During her admission, Pt had recurrent acute on chronic hypoxemic respiratory failure secondary to secretion retention, mucous plugging, major left lung atelectasis, severe shunting and pneumonia due to pseudomonas on 09/30/2018. She failed Bipap, and was intubated on 09/30/2018. She eventually got tracheostomy placed on 10/04/2018. Finally, she had removal of devitalized/necrotic tissue by Dr. Pierson on 10/07/2018, and was transferred to [facility] on 10/08/2018. Pt completed vancomycin (09/17/2018-10/29/2018) for treatment of sacral OM associated with E. faecalis. on 10/31/2018 Pt was noted to have purulence in her wound. As a result, Pt was started on empiric IV vancomycin and cefepime, and was subsequently transferred back to [facility]. Repeat drainage of the wound was done by Dr. Pierson on 11/03/2018. I discussed the status of her wound with Dr. Kenna brown 11/07/2018. According to him the wound appeared clean during the I&D. Pt was readmitted at [facility] on 11/04/2018. On 11/08/2018, Pt developed A fib with RVR and marginal BP. As a result Pt was transferred to ICU at [facility]. After transfer, her rhythm has been converted to sinus. We monitored her clinically off antibiotics. Pt was transferred to [facility] on 11/15/2018. Today Pt was transferred to ER of [facility] due to fever. Upon arrival her temp was 102.4F, Pt was tachycardic and hypotensive, requiring a vasopressor. Her WBC level was 24.6, and lactic acid level was 2.3. Pt was given a dose of IV vanc, cefe and levofloxacin. Pt is non-verbal and cannot give me her subjective history. MANUEL Uriarte requested ID consultation on this Pt. Subjective hx not possible: pt non-verbal, pt critical status Past Medical History Medical History: congestive heart failure, coronary artery disease, hypertension, urinary tract infection Home Meds Reported Medications Ondansetron Hcl* (Ondansetron Hcl*) 4 Mg Tablet, 4 MG PO Q6H PRN for n/v, TAB 11/26/18 Ascorbic Acid* (Vitamin C*) 500 Mg Capsule.sa, 500 MG GTB DAILY, CAP 11/26/18 Acetaminophen* (Acetaminophen*) 325 Mg Tablet, 650 MG GTB Q4H PRN for PAIN AND OR ELEVATED TEMP, #30 TAB 11/26/18 Sertraline Hcl* (Sertraline Hcl*) 50 Mg Tablet, 50 MG GTB DAILY, #30 TAB 11/26/18 Protein Supplement (Promod) 946 Ml Liquid, 30 ML GTB for supplement 11/26/18 Lansoprazole* (Lansoprazole*) 30 Mg Capsule.dr, 30 MG GTB BID, CAP 11/26/18 Hydrocodone/Acetaminophen ([place] 5-325 Tablet) 1 Each Tablet, 1 EACH GTB Q4H PRN for PAIN, TAB 11/26/18 Polyethylene Glycol* (Miralax*) 17 Gm Powd.pack, 17 GM GTB BID, #60 PACKET 11/26/18 Metoprolol Tartrate* (Lopressor*) 25 Mg Tab, 25 MG GTB BID, #60 TAB 11/26/18 Lisinopril* (Lisinopril*) 5 Mg Tablet, 5 MG GTB DAILY, #30 TAB 11/26/18 Insulin Aspart* (Novolog Insulin Pen*) 100 Unit/Ml Soln, 0 SC .SLIDING SCALE AC, EA INJECT PER SLIDING SCALE; IF 70-150=0unit; 151-200= 2units; 201-250=4units; 251-300=6units; 301-350=8units; 351-400=10units and Call , Subcutaneously before meals and at bedtime fo DM. 11/26/18 Insulin Glargine* (Lantus*) 100 Unit/Ml Soln, 5 UNIT SC QHS, #1 VIAL [id number] SQ AT BEDTIME FOR TYPE 2DIABETES MELLITUS WITHOUT COMPLICATIONS 11/26/18 Levetiracetam* (Keppra*) 500 Mg/5 Ml Solution, 100 MG GTB BID for SEIZURE for 30 Days, BOTTLE 11/26/18 Ipratropium-Albuterol (Ipratropium-Albuterol) 0.5-3 Mg/3 Ml Ampul.neb, 3 ML INHALATION Q6, #30 VIAL 11/26/18 Ferrous Sulfate* (Ferrous Sulfate*) 220 Mg/5 Ml Solution, 330 MG PO BID, ML 11/26/18 Epoetin Haroon (Epogen) 10,000 Units/Ml Soln, 34836 UNITS SC QWED for ANEMIA, VIAL 11/26/18 Cyanocobalamin* (Vitamin B-12*) 1,000 Mcg Tablet.sa, 1000 MCG GTB DAILY, TAB 11/26/18 Clonazepam* (Clonazepam*) 0.5 Mg Tablet, 0.5 MG GTB BID, TAB 11/26/18 Cholecalciferol (Vitamin D3) (VITAMIN D-3) 2,000 Unit Capsule, 2000 UNIT GTB DAILY, CAP 11/26/18 Baclofen* (Baclofen*) 10 Mg Tablet, 20 MG GTB TID for MUSCLE SPASM, TAB 11/26/18 Aspirin* (Aspirin* EC) 81 Mg Tablet.dr, 81 MG GTB DAILY, TAB 11/26/18 Amiodarone Hcl* (Amiodarone Hcl*) 200 Mg Tablet, 200 MG GTB BID for ARRHYTMIA, #60 TAB 11/26/18 Zolpidem Tartrate* (Zolpidem Tartrate*) 5 Mg Tablet, 5 MG GTB QHS PRN for INSOMNIA, #30 TAB 11/26/18 Acidophilus-Bulgaricus* (BD Lactinex*) 1 Pkt Packet, 1 PKT GTB BID, PACKET 11/26/18 Zinc Sulfate* (Zinc Sulfate*) 220 Mg Tablet, 220 MG GTB DAILY for 30 Days, #30 TAKE 1 CAPSULE VIA G-TUBE EVERY DAY 11/26/18 Estrogens Conjugated* (Premarin*) 0.45 Mg Tablet, 1.5 MG PO DAILY 02/18/13 Discontinued Reported Medications [Tramadol] No Conflict Check 06/26/13 [Oxybutynin] No Conflict Check 02/18/13 [Furosemide] No Conflict Check 02/18/13 [Atorvastatin] No Conflict Check 02/18/13 [Lorazepam] No Conflict Check 02/18/13 Medications Current Medications Sodium Chloride 1,000 ml @ 75 mls/hr [id number] IV Last administered on 11/26/18at 11:42; Admin Dose 75 MLS/HR; Start 11/26/18 at 11:30 Vancomycin HCl (Vanco Iv Per Pharmacy) VANCOMYCIN PER PHARMACY PER PROTOCOL XX ; Start 11/26/18 at 13:00 Cefepime HCl 50 ml @ 100 mls/hr BID IVPB Last administered on 11/26/18at 14:26; Admin Dose 100 MLS/HR; Start 11/26/18 at 13:00 Norepinephrine 250 ml @ 1.875 mls/ hr TITRATE IV Last administered on 11/26/18at 15:09; Admin Dose 3.75 MLS/HR; Start 11/26/18 at 13:30 Vancomycin/Sodium Chloride 250 ml @ 125 mls/hr Q12H IVPB Last administered on 11/26/18at 15:10; Admin Dose 125 MLS/HR; Start 11/26/18 at 15:00 IV Flush (NS 10 ml) 10 ml Q8 IV ; Start 11/26/18 at 22:00 Allergies: Coded Allergies: Penicillins (Verified Allergy, Unknown, 07/06/13) morphine (Verified Adverse Reaction, Mild, "LOOPY", 10/08/18) Uncoded Allergies: PLASTIC TAPE (Allergy, Unknown, 04/01/07) Past Surgical History Past Surgical Hx: other (I&D of R hip) Social History Smoking Status: Never smoker Exam/Review of Systems Exam Vitals Vital Signs Date Temp Pulse Resp B/P (MAP) Pulse Ox O2 O2 Flow FiO2 Time Delivery Rate 11/26/18 98.9 115 20 95/55 (68) 97 T Tube 14:36 11/26/18 8.0 13:30 11/26/18 35 06:21 Constitutional: non-verbal, frail Psych: confusion Head: normocephalic, atraumatic Eyes: nl conjunctiva, nl lids ENMT: nl external ears & nose, nl nasal mucosa & septum, mucosa pink and moist Neck: other (trach) Respiratory: crackles/rales Cardiovascular: irregular rhythm (tachycardic) Gastrointestinal: soft, non-tender, other (GT) Genitourinary - Female: other (+diaper) Musculoskeletal: other (contractured. R hip wound is deep, the femur shft is not exposure on her current body position); No swelling Extremities: edema, pitting pedal edema Neurological: TAKE AWAY ATTENDANT II-XII intact, nl mental status Skin: No rash or lesions Results Result Diagram: 11/26/188 11/26/18 0128 Results 24hrs Laboratory Tests Test 11/26/18 01:26 11/26/18 01:28 11/26/18 01:43 11/26/18 04:16 POC Venous Lactate 2.3 *H 2.3 *H White Blood Count 24.6 #H Red Blood Count 2.94 L Hemoglobin 7.5 L Hematocrit 25.1 L Mean Corpuscular 85.4 Volume Mean Corpuscular 25.5 L Hemoglobin Mean Corpuscular 29.9 L Hemoglobin Concent Red Cell 18.2 H Distribution Width Platelet Count 272 Mean Platelet Volume 11.4 H Immature 2.400 H Granulocytes % Neutrophils % Segmented 82 H Neutrophils % (Manual) Band Neutrophils % 14 H (Manual) Lymphocytes % Lymphocytes % 3 L (Manual) Monocytes % Monocytes % (Manual) 1 Eosinophils % Basophils % Nucleated Red Blood 0.0 Cells % Immature 0.580 H Granulocytes # Neutrophils # Neutrophils # 21.0 H (Manual) Band Neutrophils # 3.4 H Lymphocytes (Manual) 0.7 L Lymphocytes # Monocytes # Monocytes # (Manual) 0.2 L Eosinophils # Basophils # Nucleated Red Blood Cells # Platelet Estimate NORMAL Polychromasia 3+ Anisocytosis 1+ Microcytosis 1+ Prothrombin Time 19.1 #H Prothrombin Time 1.5 Ratio INR International 1.60 Normalized Ratio Activated 35.3 H Partial Thromboplast Time Sodium Level 147 H Potassium Level 5.5 H Chloride Level 106 Carbon Dioxide Level 30 Anion Gap 11 Blood Urea Nitrogen 75 H Creatinine 0.87 Est Glomerular Filtrat Rate mL/min Glucose Level 429 *H Calcium Level 8.5 Total Bilirubin 0.1 L Direct Bilirubin 0.00 Indirect Bilirubin 0.1 Aspartate Amino 34 Transf (AST/SGOT) Alanine 23 Aminotransferase (AL T/SGPT) Alkaline Phosphatase 150 H Troponin I < 0.012 Total Protein 6.9 Albumin 3.3 Globulin 3.60 H Albumin/Globulin 0.91 Ratio Urine Color NEW Urine Clarity CLOUDY A Urine pH 5.0 Urine Specific 1.021 [place] Urine Ketones NEGATIVE Urine Nitrite NEGATIVE Urine Bilirubin NEGATIVE Urine Urobilinogen NEGATIVE Urine Leukocyte TRACE A Esterase Urine Microscopic > 182 H RBC Urine Microscopic 36 H WBC Urine Squamous FEW Epithelial Cells Urine Bacteria FEW A Urine Mucus MODERATE Urine Yeast FEW A (Budding) Urine Hemoglobin 3+ H Urine Glucose 1+ H Urine Total Protein 1+ H Test 11/26/18 04:29 11/26/18 06:02 Bedside Glucose 397 H Lactic Acid Level 2.3 *H Medications Medication Current Medications Sodium Chloride 1,000 ml @ 75 mls/hr [id number] IV Last administered on 11/26/18at 11:42; Admin Dose 75 MLS/HR; Start 11/26/18 at 11:30 Vancomycin HCl (Vanco Iv Per Pharmacy) VANCOMYCIN PER PHARMACY PER PROTOCOL XX ; Start 11/26/18 at 13:00 Cefepime HCl 50 ml @ 100 mls/hr BID IVPB Last administered on 11/26/18at 14:26; Admin Dose 100 MLS/HR; Start 11/26/18 at 13:00 Norepinephrine 250 ml @ 1.875 mls/ hr TITRATE IV Last administered on 11/26/18at 15:09; Admin Dose 3.75 MLS/HR; Start 11/26/18 at 13:30 Vancomycin/Sodium Chloride 250 ml @ 125 mls/hr Q12H IVPB Last administered on 11/26/18at 15:10; Admin Dose 125 MLS/HR; Start 11/26/18 at 15:00 IV Flush (NS 10 ml) 10 ml Q8 IV ; Start 11/26/18 at 22:00 IRWIN SKELTON M.D. Nov 26, 2018 16:09
--- NOTE | 2018-11-26 18:01 | CONS ---
Assessment/Plan Assessment/Plan Hospital Course (Demo Recall) # sepsis, endovascular infection, respiratory - septic shock due to probable UTI +/- HCAP - colonization of the airway by pseudomonas - tracheal aspirate 11/08/18 grew pseudomonas, s/p short course of cipro 11/10/2018-11/15/2018 - h/o sepsis due to bacteremia and pneumonia - h/o bacteremia: blood cultures grew enterococcus faecalis on 09/17/2018 secondary to R hip wound infection as its wound culture on 09/16/2018 grew E. faecalis as well - h/o recurrent acute on chronic hypoxemic respiratory failure secondary to secretion retention, mucous plugging, major left lung atelectasis, severe shunting - h/o probable aspiration pneumonia. - h/o pneumonia due to pseudomonas on 09/30/2018. s/p Levaquin (10/03/18- 10/07/2018), Meropenem (restart 09/30/2018-10/03/18, 10/12/18 - 10/19/2018) and empiric Amikacin (09/30/18-10/03/18) - H/o intubation on 09/30/2018 - H/o tracheostomy on 10/04/2018 - h/o pseudomonas in urine culture on 09/17/2018 with mild pyuria; treated with Cefepime (09/20/2018-09/25/2018) # infection of wound, OM of R hip - h/o colonization of the wound of R hip by pseudomonas (wound culture on 10/05) - h/o repeat debridement at [facility] on 11/03/2018. According to Dr. Pierson, the wound appeared clean during the I&D (my conversation with him on 11/06/2018) - H/o stage sacral decubitus ulcer extending to bilateral buttocks. She reportedly had total hip dislocation and exposed femoral head. CT pelvis showed e/o OM. Pt complete IV vancomycin (09/17/2018-10/29/2018) for sacral OM associated with E. faecalis - H/o sharp excisional debridement down to and including bone of the sacrum on 08/22/2018 and 09/19/2018 - H/o excision of R hip ulcer, girdlestone resection arthroplasty and flap recon struction 09/23/2018. The surgical pathology showed osteomyelitis of R hip bone, soft tissue cellulitis, and bony margin of excision was free of the disease - XR of R hip on 11/09/2009 showed the remaining R femoral shaft in transverse orientation and with lateral deviation - h/o removal of devitalized/necrotic tissue by Dr. Pierson on 10/07/2018 # renal/ - probable UTI (hematuria on 11/26/2018) - H/o moderate L hydronephrosis per renal US - funguria, recurrent # heme/neuro - H/o acute on chronic anemia requiring PRBC - Metabolic encephalopathy - Supranuclear palsy # endo, cardiac - Diabetes Mellitus - A fib with RVR - Chronic diastolic HF (EF 40-45% with grade 1 DD per 2D Echo 10/24/2018) - H/o hypertension # allergy - Penicillin allergy (throat swelling) but Pt tolerates cefepime and ceftazidime - Resulted: [id number] <31 Revised recommendations: - pending results: cultures of blood and urine - ordered: culture of tracheal aspirate and wound - I recommend wound care consult by Dr. Jesus Wiggins (he was on this Pt's case before) - continue IV vancomycin and change cefepime to ceftazidime; add IV ciprofloxacin (Pt's strains of pseudomonas has variety of sensitivity) 11/26/2018- - according to Dr. Pierson who performed the wound debridement, Pt needs wo und care until granulation tissue builds and infection is cleared. Then he would decide if Pt should get repeat closure or not management d/w Pt's RN Mohini, [employer] [place] the critical care time I took to care for this Pt day was from 1510 to 1550 Consultation Date/Type/Reason Admit Date/Time Type of Consult ID Date/Time of Note DATE: 11/26/18 TIME: 18:00 Past Medical History Medical History: congestive heart failure, coronary artery disease, hypertension, urinary tract infection Home Meds Reported Medications Ondansetron Hcl* (Ondansetron Hcl*) 4 Mg Tablet, 4 MG PO Q6H PRN for n/v, TAB 11/26/18 Ascorbic Acid* (Vitamin C*) 500 Mg Capsule.sa, 500 MG GTB DAILY, CAP 11/26/18 Acetaminophen* (Acetaminophen*) 325 Mg Tablet, 650 MG GTB Q4H PRN for PAIN AND OR ELEVATED TEMP, #30 TAB 11/26/18 Sertraline Hcl* (Sertraline Hcl*) 50 Mg Tablet, 50 MG GTB DAILY, #30 TAB 11/26/18 Protein Supplement (Promod) 946 Ml Liquid, 30 ML GTB for supplement 11/26/18 Lansoprazole* (Lansoprazole*) 30 Mg Capsule.dr, 30 MG GTB BID, CAP 11/26/18 Hydrocodone/Acetaminophen ([place] 5-325 Tablet) 1 Each Tablet, 1 EACH GTB Q4H PRN for PAIN, TAB 11/26/18 Polyethylene Glycol* (Miralax*) 17 Gm Powd.pack, 17 GM GTB BID, #60 PACKET 11/26/18 Metoprolol Tartrate* (Lopressor*) 25 Mg Tab, 25 MG GTB BID, #60 TAB 11/26/18 Lisinopril* (Lisinopril*) 5 Mg Tablet, 5 MG GTB DAILY, #30 TAB 11/26/18 Insulin Aspart* (Novolog Insulin Pen*) 100 Unit/Ml Soln, 0 SC .SLIDING SCALE AC, EA INJECT PER SLIDING SCALE; IF 70-150=0unit; 151-200= 2units; 201-250=4units; 251-300=6units; 301-350=8units; 351-400=10units and Call MD, Subcutaneously before meals and at bedtime fo DM. 11/26/18 Insulin Glargine* (Lantus*) 100 Unit/Ml Soln, 5 UNIT SC QHS, #1 VIAL [id number] SQ AT BEDTIME FOR TYPE 2DIABETES MELLITUS WITHOUT COMPLICATIONS 11/26/18 Levetiracetam* (Keppra*) 500 Mg/5 Ml Solution, 100 MG GTB BID for SEIZURE for 30 Days, BOTTLE 11/26/18 Ipratropium-Albuterol (Ipratropium-Albuterol) 0.5-3 Mg/3 Ml Ampul.neb, 3 ML INHALATION Q6, #30 VIAL 11/26/18 Ferrous Sulfate* (Ferrous Sulfate*) 220 Mg/5 Ml Solution, 330 MG PO BID, ML 11/26/18 Epoetin Haroon (Epogen) 10,000 Units/Ml Soln, 61974 UNITS SC QWED for ANEMIA, VIAL 11/26/18 Cyanocobalamin* (Vitamin B-12*) 1,000 Mcg Tablet.sa, 1000 MCG GTB DAILY, TAB 11/26/18 Clonazepam* (Clonazepam*) 0.5 Mg Tablet, 0.5 MG GTB BID, TAB 11/26/18 Cholecalciferol (Vitamin D3) (VITAMIN D-3) 2,000 Unit Capsule, 2000 UNIT GTB DAILY, CAP 11/26/18 Baclofen* (Baclofen*) 10 Mg Tablet, 20 MG GTB TID for MUSCLE SPASM, TAB 11/26/18 Aspirin* (Aspirin* EC) 81 Mg Tablet.dr, 81 MG GTB DAILY, TAB 11/26/18 Amiodarone Hcl* (Amiodarone Hcl*) 200 Mg Tablet, 200 MG GTB BID for ARRHYTMIA, #60 TAB 11/26/18 Zolpidem Tartrate* (Zolpidem Tartrate*) 5 Mg Tablet, 5 MG GTB QHS PRN for INSOMNIA, #30 TAB 11/26/18 Acidophilus-Bulgaricus* (BD Lactinex*) 1 Pkt Packet, 1 PKT GTB BID, PACKET 11/26/18 Zinc Sulfate* (Zinc Sulfate*) 220 Mg Tablet, 220 MG GTB DAILY for 30 Days, #30 TAKE 1 CAPSULE VIA G-TUBE EVERY DAY 11/26/18 Estrogens Conjugated* (Premarin*) 0.45 Mg Tablet, 1.5 MG PO DAILY 02/18/13 Discontinued Reported Medications [Tramadol] No Conflict Check 06/26/13 [Oxybutynin] No Conflict Check 02/18/13 [Furosemide] No Conflict Check 02/18/13 [Atorvastatin] No Conflict Check 02/18/13 [Lorazepam] No Conflict Check 02/18/13 Medications Current Medications Sodium Chloride 1,000 ml @ 75 mls/hr [id number] IV Last administered on 11/26/18at 11:42; Admin Dose 75 MLS/HR; Start 11/26/18 at 11:30 Norepinephrine 250 ml @ 1.875 mls/ hr TITRATE IV Last administered on 11/26/18at 15:09; Admin Dose 3.75 MLS/HR; Start 11/26/18 at 13:30 IV Flush (NS 10 ml) 10 ml Q8 IV ; Start 11/26/18 at 22:00 Ascorbic Acid (Vitamin C) 500 mg DAILY GTB ; Start 11/27/18 at 09:00 Aspirin (Halfprin) 81 mg DAILY PO ; Start 11/27/18 at 09:00 Baclofen (Lioresal) 20 mg TID GTB ; Start 11/26/18 at 21:00 Cholecalciferol (Vitamin D) 2,000 unit DAILY GTB ; Start 11/27/18 at 09:00 Cyanocobalamin (Vitamin B12) 1,000 mcg DAILY GTB ; Start 11/27/18 at 09:00 Miscellaneous Information (* Miscellaneous Pharmacy Order) Discontinue current oral sulfonylur... ONCE ONCE XX ; Start 11/26/18 at 17:30; Stop 11/26/18 at 17:31; Status UNV Diagnostic Test (Pha) (Accu-Chek) 1 ea 02 XX ; Start 11/27/18 at 02:00; Status UNV Miscellaneous Information (* Miscellaneous Pharmacy Order) HYPOGLYCEMIA PROTOCOL w... ONCE ONCE XX ; Start 11/26/18 at 17:30; Stop 11/26/18 at 17:31; Status UNV Insulin Aspart (Novolog Insulin Pen) NOVOLOG *MILD* ALGORITHM WITH MEALS BEDTIME SC ; Start 11/26/18 at 18:00; Status UNV Miscellaneous Information (* Miscellaneous Pharmacy Order) Discontinue all previ... ONCE ONCE XX ; Start 11/26/18 at 17:30; Stop 11/26/18 at 17:31; Status UNV Allergies: Coded Allergies: Penicillins (Verified Allergy, Unknown, 07/06/13) morphine (Verified Adverse Reaction, Mild, "LOOPY", 10/08/18) Uncoded Allergies: PLASTIC TAPE (Allergy, Unknown, 04/01/07) Past Surgical History Past Surgical Hx: other (I&D of R hip) Social History Smoking Status: Never smoker Exam/Review of Systems Exam Vitals Vital Signs Date Temp Pulse Resp B/P (MAP) Pulse Ox O2 O2 Flow FiO2 Time Delivery Rate 11/26/18 98.9 108 23 81/53 (62) 97 T Tube 8.0 15:58 11/26/18 35 06:21 Results Result Diagram: 11/26/18 1728 11/26/18 0128 Results 24hrs Laboratory Tests Test 11/26/18 01:26 11/26/18 01:28 11/26/18 01:43 11/26/18 04:16 POC Venous Lactate 2.3 *H 2.3 *H White Blood Count 24.6 #H Red Blood Count 2.94 L Hemoglobin 7.5 L Hematocrit 25.1 L Mean Corpuscular 85.4 Volume Mean Corpuscular 25.5 L Hemoglobin Mean Corpuscular 29.9 L Hemoglobin Concent Red Cell 18.2 H Distribution Width Platelet Count 272 Mean Platelet Volume 11.4 H Immature 2.400 H Granulocytes % Neutrophils % Segmented 82 H Neutrophils % (Manual) Band Neutrophils % 14 H (Manual) Lymphocytes % Lymphocytes % 3 L (Manual) Monocytes % Monocytes % (Manual) 1 Eosinophils % Basophils % Nucleated Red Blood 0.0 Cells % Immature 0.580 H Granulocytes # Neutrophils # Neutrophils # 21.0 H (Manual) Band Neutrophils # 3.4 H Lymphocytes (Manual) 0.7 L Lymphocytes # Monocytes # Monocytes # (Manual) 0.2 L Eosinophils # Basophils # Nucleated Red Blood Cells # Platelet Estimate NORMAL Polychromasia 3+ Anisocytosis 1+ Microcytosis 1+ Prothrombin Time 19.1 #H Prothrombin Time 1.5 Ratio INR International 1.60 Normalized Ratio Activated 35.3 H Partial Thromboplast Time Sodium Level 147 H Potassium Level 5.5 H Chloride Level 106 Carbon Dioxide Level 30 Anion Gap 11 Blood Urea Nitrogen 75 H Creatinine 0.87 Est Glomerular Filtrat Rate mL/min Glucose Level 429 *H Calcium Level 8.5 Total Bilirubin 0.1 L Direct Bilirubin 0.00 Indirect Bilirubin 0.1 Aspartate Amino 34 Transf (AST/SGOT) Alanine 23 Aminotransferase (AL T/SGPT) Alkaline Phosphatase 150 H Troponin I < 0.012 Total Protein 6.9 Albumin 3.3 Globulin 3.60 H Albumin/Globulin 0.91 Ratio Urine Color NEW Urine Clarity CLOUDY A Urine pH 5.0 Urine Specific 1.021 [place] Urine Ketones NEGATIVE Urine Nitrite NEGATIVE Urine Bilirubin NEGATIVE Urine Urobilinogen NEGATIVE Urine Leukocyte TRACE A Esterase Urine Microscopic > 182 H RBC Urine Microscopic 36 H WBC Urine Squamous FEW Epithelial Cells Urine Bacteria FEW A Urine Mucus MODERATE Urine Yeast FEW A (Budding) Urine Hemoglobin 3+ H Urine Glucose 1+ H Urine Total Protein 1+ H Test 11/26/18 04:29 11/26/18 06:02 11/26/18 15:55 11/26/18 17:28 Bedside Glucose 397 H Lactic Acid Level 2.3 *H Urine Opiates Screen Negative Urine Barbiturates Negative Urine Amphetamines Negative Screen Urine Negative Benzodiazepines Screen Urine Cocaine Screen Negative Urine Cannabinoids Negative White Blood Count 18.4 #H Red Blood Count 2.06 #L Hemoglobin 5.4 #*L Hematocrit 17.9 #L Mean Corpuscular 86.9 Volume Mean Corpuscular 26.2 L Hemoglobin Mean Corpuscular 30.2 L Hemoglobin Concent Red Cell 18.2 H Distribution Width Platelet Count 194 # Mean Platelet Volume 10.7 H Immature 1.000 H Granulocytes % Neutrophils % Lymphocytes % Monocytes % Eosinophils % Basophils % Nucleated Red Blood 0.0 Cells % Immature 0.180 H Granulocytes # Neutrophils # Lymphocytes # Monocytes # Eosinophils # Basophils # Nucleated Red Blood Cells # Medications Medication Current Medications Sodium Chloride 1,000 ml @ 75 mls/hr [id number] IV Last administered on 11/26/18at 11:42; Admin Dose 75 MLS/HR; Start 11/26/18 at 11:30 Norepinephrine 250 ml @ 1.875 mls/ hr TITRATE IV Last administered on 11/26/18at 15:09; Admin Dose 3.75 MLS/HR; Start 11/26/18 at 13:30 IV Flush (NS 10 ml) 10 ml Q8 IV ; Start 11/26/18 at 22:00 Ascorbic Acid (Vitamin C) 500 mg DAILY GTB ; Start 11/27/18 at 09:00 Aspirin (Halfprin) 81 mg DAILY PO ; Start 11/27/18 at 09:00 Baclofen (Lioresal) 20 mg TID GTB ; Start 11/26/18 at 21:00 Cholecalciferol (Vitamin D) 2,000 unit DAILY GTB ; Start 11/27/18 at 09:00 Cyanocobalamin (Vitamin B12) 1,000 mcg DAILY GTB ; Start 11/27/18 at 09:00 Miscellaneous Information (* Miscellaneous Pharmacy Order) Discontinue current oral sulfonylur... ONCE ONCE XX ; Start 11/26/18 at 17:30; Stop 11/26/18 at 17:31; Status UNV Diagnostic Test (Pha) (Accu-Chek) 1 ea XX ; Start 11/27/18 at 02:00; Status UNV Miscellaneous Information (* Miscellaneous Pharmacy Order) HYPOGLYCEMIA PROTOCOL w... ONCE ONCE XX ; Start 11/26/18 at 17:30; Stop 11/26/18 at 17:31; Status UNV Insulin Aspart (Novolog Insulin Pen) NOVOLOG *MILD* ALGORITHM WITH MEALS BEDTIME SC ; Start 11/26/18 at 18:00; Status UNV Miscellaneous Information (* Miscellaneous Pharmacy Order) Discontinue all pr brown... ONCE ONCE XX ; Start 11/26/18 at 17:30; Stop 11/26/18 at 17:31; Status IZAIAHV IRWIN SKELTON M.D. Nov 26, 2018 18:01
[2018-11-26] MEDS ORDERED: GLUCOSE GEL 15 GRAM TUBE BUCCAL PRN (18:30)
[2018-11-26] MEDS ORDERED: DEXTROSE 50% 50 ML SYRINGE IV PRN ×2 (18:30)
[2018-11-26] MEDS ORDERED: GLUCOSE GEL 15 GRAM TUBE PO PRN ×2 (18:30)
[2018-11-26] MEDS ORDERED: GLUCAGON 1 MG INJ IM PRN (18:30)
[2018-11-26] MEDS ORDERED: SOD CHLORIDE 0.9% 0 ML IV ONE (18:34)
[2018-11-26] MEDS ORDERED: INSULIN ASPART [NOVOLOG] 3 ML PEN SC SCH (21:00)
[2018-11-26] MEDS: CIPROFLOXACIN 400MG/D5W 200 ML IVPB SCH (23:35)
[2018-11-26] MEDS: BACLOFEN 10 MG TAB GTB SCH (23:36)
[2018-11-27] VITALS (82 sets, daily range): BP systolic 77–269; BP diastolic 46–234; PULSE 64–138; RESP 0–35
[2018-11-27] MEDS: INSULIN ASPART [NOVOLOG] 3 ML PEN SC SCH ×8 (00:06→20:54)
[2018-11-27] MEDS: SOD CHLORIDE 0.9% 1,000 ML IV SCH (01:33)
[2018-11-27] MEDS: ACCU-CHEK XX SCH (02:00)
[2018-11-27] MEDS ORDERED: ACCU-CHEK XX SCH (02:00)
[2018-11-27] MEDS: VANCOMYCIN 750 MG (PMX) 250 ML IVPB SCH ×2 (03:00→16:07)
[2018-11-27] MEDS: CEFTAZIDIME 2GM/50 ML (PMX) 50 ML IVPB SCH ×2 (05:34→16:10)
[2018-11-27] MEDS: COLLAGENASE 5 GM (UD JAR) TOP SCH ×2 (09:00→10:11)
[2018-11-27] MEDS ORDERED: COLLAGENASE 5 GM (UD JAR) TOP PRN (09:00)
[2018-11-27] MEDS ORDERED: PENDING SANTYL ORDER FOR WOUND CARE XX PRN (09:00)
--- NOTE | 2018-11-27 09:41 | CONS ---
DATE OF ADMISSION: 11/26/2018 DATE OF CONSULTATION: 11/27/2018 REASON FOR CONSULTATION: Shortness of breath. Thank you, Dr. Miller, for this consultation. HISTORY OF PRESENT ILLNESS: This is a 73-year-old lady with multiple medical problems brought in [facility] for evaluation of fever. She is persistent vegetative state, unable to gi ve me further details, history of tracheostomy, on cool aerosol. PAST MEDICAL HISTORY: 1. Persistent vegetative state. 2. Dysphagia with G-tube. 3. Chronic respiratory failure with tracheostomy. MEDICATIONS: Per chart. ALLERGIES INCLUDE: 1. PENICILLIN 2. MORPHINE. SOCIAL HISTORY: She is a nonsmoker, no alcohol, no history of drug use. FAMILY HISTORY: Noncontributory. SYSTEMS REVIEW: A 12-point review of systems was negative other than that mentioned above. PHYSICAL EXAMINATION: GENERAL: Thin, elderly lady on cool aerosol by tracheostomy. VITAL SIGNS: Temperature 98, pulse is 82, blood pressure 89/60, O2 saturation 96% on T-tube. NECK: Trach site clean and intact. CARDIAC: S1, S2, no added sounds or murmurs. CHEST: Diminished air entry bilaterally. ABDOMEN: Soft, nontender. No guarding or rebound. EXTREMITIES: No cyanosis, clubbing, edema. NEUROLOGIC: Generalized weakness. LABORATORIES: White count initially 24, now 12.4, hemoglobin 8.1 following transfusion, platelets of 141. BUN 30, creatinine 0.35. Lactic acid was initially 2.3. INR 1.6. U-tox was unremarkable. IMPRESSION: 1. Severe sepsis. 2. Possible healthcare-associated pneumonia. 3. Chronic respiratory failure. 4. Severe anemia, questionable gastrointestinal bleed. 5. Renal insufficiency. 6. Coagulopathy. PLAN: 1. Monitor hemoglobin and hematocrit levels. 2. Antibiotics per primary team. 3. Tube feeding as tolerated. 4. Deep vein thrombosis and gastrointestinal prophylaxis. 5. Vasopressors as needed. Dictated By: JARED NICOLAS MD SV/NTS Conf#: [id number] DID#: [id number] CC: KASH MONDRAGON MD; DOMI MCCALLUM MD; BRYON MILLER MD;*EndCC*
[2018-11-27] MEDS: CYANOCOBALAMIN 500 MCG TAB GTB SCH (10:09)
[2018-11-27] MEDS: ASCORBIC ACID 500 MG TAB GTB SCH (10:09)
[2018-11-27] MEDS: CHOLECALCIFEROL 2,000 UNIT CAP GTB SCH (10:09)
[2018-11-27] MEDS: ASPIRIN (EC) 81 MG TAB PO SCH (10:09)
[2018-11-27] MEDS: BACLOFEN 10 MG TAB GTB SCH ×3 (10:10→21:38)
--- NOTE | 2018-11-27 10:59 | CONS ---
Assessment/Plan Assessment/Plan Hospital Course (Demo Recall) # sepsis, endovascular infection, respiratory - septic shock due to probable UTI +/- HCAP - Gram positive cocci in blood cultures on 11/26/2018 - colonization of the airway by pseudomonas - tracheal aspirate 11/08/18 grew pseudomonas, s/p short course of cipro 11/10/2018-11/15/2018 - h/o sepsis due to bacteremia and pneumonia - h/o bacteremia: blood cultures grew enterococcus faecalis on 09/17/2018 secondary to R hip wound infection as its wound culture on 09/16/2018 grew E. faecalis as well - h/o recurrent acute on chronic hypoxemic respiratory failure secondary to secretion retention, mucous plugging, major left lung atelectasis, severe shunting - h/o probable aspiration pneumonia. - h/o pneumonia due to pseudomonas on 09/30/2018. s/p Levaquin (10/03/18- 10/07/2018), Meropenem (restart 09/30/2018-10/03/18, 10/12/18 - 10/19/2018) and empiric Amikacin (09/30/18-10/03/18) - H/o intubation on 09/30/2018 - H/o tracheostomy on 10/04/2018 - h/o pseudomonas in urine culture on 09/17/2018 with mild pyuria; treated with Cefepime (09/20/2018-09/25/2018) # infection of wound, OM of R hip - h/o colonization of the wound of R hip by pseudomonas (wound culture on 10/31/2018) - h/o repeat debridement at [facility] on 11/03/[address]. [address] Pierson, the wound appeared clean during the I&D (my conversation with him on 11/06/2018) - H/o stage sacral decubitus ulcer extending to bilateral buttocks. She reportedly had total hip dislocation and exposed femoral head. CT pelvis showed e/o OM. Pt complete IV vancomycin (09/17/2018-10/29/2018) for sacral OM associated with E. faecalis - H/o sharp excisional debridement down to and including bone of the sacrum on 08/22/2018 and 09/19/2018 - H/o excision of R hip ulcer, girdlestone resection arthroplasty and flap reconstruction 09/23/2018. The surgical pathology showed osteomyelitis of R hip bone, soft tissue cellulitis, and bony margin of excision was free of the disease - XR of R hip on 11/09/2009 showed the remaining R femoral shaft in transverse orientation and with lateral deviation - h/o removal of devitalized/necrotic tissue by Dr. Pierson on 10/07/2018 # renal/ - probable UTI (hematuria on 11/26/2018) - H/o moderate L hydronephrosis per renal US - funguria, recurrent # heme/neuro - H/o acute on chronic anemia requiring PRBC - Metabolic encephalopathy - Supranuclear palsy # endo, cardiac - Diabetes Mellitus - A fib with RVR - Chronic diastolic HF (EF 40-45% with grade 1 DD per 2D Echo 10/24/2018) - H/o hypertension # allergy - Penicillin allergy (throat swelling) but Pt tolerates cefepime and ceftazidime - Resulted: [id number] <31 Revised recommendations: - pending results: cultures of blood (gram positive cocci), urine, tracheal as pirate and wound (collected twice) - repeat blood cultures x2 now - continue IV vancomycin, ceftazidime and IV ciprofloxacin (Pt's strains of pseudomonas have variety of sensitivity) 11/26/2018- - according to Dr. Pierson who performed the wound debridement, Pt needs wound care until granulation tissue builds and infection is cleared. Then he would decide if Pt should get repeat closure or not management d/w Pt's JAY Duque the critical care time I took to care for this Pt day was from 1000 to 1030 Consultation Date/Type/Reason Admit Date/Time Nov 26, 2018 at 20:42 Initial Consult Date 11/26/18 Type of Consult ID Requesting Provider: NADEEN CHO Date/Time of Note DATE: 11/27/18 TIME: 10:55 24 HR Interval Summary Subjective hx not possible: pt non-verbal Exam/Review of Systems Exam Vitals Vital Signs Date Temp Pulse Resp B/P (MAP) Pulse Ox O2 O2 Flow FiO2 Time Delivery Rate 11/27/18 88 29 95 Aerosol 10.0 40 09:24 T Tube 11/27/18 89/60 (70) 06:30 11/27/18 98.1 04:00 Intake and Output 11/26/18 11/26/18 11/27/18 1515:00 23:00 07:00 IntakeIntake Total 22.5 ml 4845.0 ml OutputOutput Total 530 ml 470 ml BalanceBalance -507.5 ml 4375.0 ml Constitutional: non-verbal, frail Psych: confusion Head: normocephalic, atraumatic Eyes: nl conjunctiva, nl lids ENMT: nl external ears & nose, nl nasal mucosa & septum Neck: other (trach) Respiratory: diminished breath sounds Cardiovascular: regular rate and rhythm, nl pulses Gastrointestinal: soft, non-tender, other (GT) Genitourinary - Female: other (diaper) Musculoskeletal: other (resected R femur is visible in R hip wound) Extremities: other (contractured) Neurological: unresponsive, other (tremors of b/l UEs and hands) Skin: other (blanching erythema of b/l thigh. No rash elsewhere) Results Result Diagram: 11/27/18 0430 11/27/18 0430 Results 24hrs Laboratory Tests Test 11/26/18 15:55 11/26/18 17:28 11/26/18 18:43 11/26/18 21:43 Urine Opiates Negative Screen Urine Negative Barbiturates Urine Negative Amphetamines Screen Urine Negative Benzodiazepines Screen Urine Cocaine Negative Screen Urine Negative Cannabinoids White Blood Count 18.4 #H Red Blood Count 2.06 #L Hemoglobin 5.4 #*L Hematocrit 17.9 #L Mean Corpuscular 86.9 Volume Mean Corpuscular 26.2 L Hemoglobin Mean Corpuscular 30.2 L Hemoglobin Concen t Red Cell 18.2 H Distribution Width Platelet Count 194 # Mean Platelet 10.7 H Volume Immature 1.000 H Granulocytes % Neutrophils % Segmented 78 H Neutrophils % (Manual) Band Neutrophils 16 H % (Manual) Lymphocytes % Lymphocytes % 5 L (Manual) Monocytes % Monocytes % 1 (Manual) Eosinophils % Basophils % Nucleated Red 0.0 Blood Cells % Immature 0.180 H Granulocytes # Neutrophils # Neutrophils # 14.9 H (Manual) Band Neutrophils 2.9 H # Lymphocytes 0.9 (Manual) Lymphocytes # Monocytes # Monocytes # 0.1 L (Manual) Eosinophils # Basophils # Nucleated Red Blood Cells # Platelet Estimate NORMAL Hypochromasia 2+ Anisocytosis 2+ Microcytosis 2+ Sodium Level 148 H Potassium Level 3.2 #L Chloride Level 123 H Carbon Dioxide 22 Level Anion Gap 3 #L Blood Urea 43 #H Nitrogen Creatinine 0.47 Est Glomerular Filtrat Rate mL/min Glucose Level 143 # Calcium Level 6.5 L Total Bilirubin 0.0 L Direct Bilirubin 0.00 Indirect 0.0 Bilirubin Aspartate Amino 26 Transf (AST/SGOT) Alanine 34 Aminotransferase (ALT/SGPT) Alkaline 78 Phosphatase Total Protein 5.0 #L Albumin 2.1 #L Globulin 2.90 Albumin/Globulin 0.72 Ratio Bedside Glucose 141 150 Test 11/26/18 23:29 11/27/18 02:35 11/27/18 04:09 11/27/18 04:30 Bedside Glucose 233 H 184 215 White Blood Count 12.4 #H Red Blood Count 2.95 #L Hemoglobin 8.1 #L Hematocrit 26.9 #L Mean Corpuscular 91.2 Volume Mean Corpuscular 27.5 L Hemoglobin Mean Corpuscular 30.1 L Hemoglobin Concen t Red Cell 15.7 H Distribution Width Platelet Count 141 # Mean Platelet 12.1 H Volume Immature 1.700 H Granulocytes % Neutrophils % Segmented 63 Neutrophils % (Manual) Band Neutrophils 33 H % (Manual) Lymphocytes % Lymphocytes % 4 L (Manual) Monocytes % Eosinophils % Basophils % Nucleated Red 0.0 Blood Cells % Immature 0.210 H Granulocytes # Neutrophils # Neutrophils # 8.3 H (Manual) Band Neutrophils 4.0 H # Lymphocytes 0.4 L (Manual) Lymphocytes # Monocytes # Eosinophils # Basophils # Nucleated Red Blood Cells # Toxic Granulation 1+ Platelet Estimate NORMAL Polychromasia 1+ Poikilocytosis 1+ Anisocytosis 1+ Sodium Level 150 H Potassium Level 4.9 Chloride Level 123 H Carbon Dioxide 17 L Level Anion Gap 10 # Blood Urea 30 #H Nitrogen Creatinine 0.35 L Est Glomerular Filtrat Rate mL/min Glucose Level 133 Calcium Level 5.2 *L Total Bilirubin 0.0 L Direct Bilirubin 0.00 Indirect 0.0 Bilirubin Aspartate Amino 25 Transf (AST/SGOT) Alanine 37 Aminotransferase (ALT/SGPT) Alkaline 54 Phosphatase Total Protein 3.5 #L Albumin 1.6 L Globulin 1.90 Albumin/Globulin 0.84 Ratio Test 11/27/18 05:15 11/27/18 08:34 Lab Scanned BLOOD TRANSFUSIO Report N Bedside Glucose 116 Medications Medication Current Medications Sodium Chloride 1,000 ml @ 75 mls/hr [id number] IV Last administered on 11/27/18 01:33; Admin Dose 75 MLS/HR; Start 11/26/18 at 11:30 Norepinephrine 250 ml @ 1.875 mls/ hr TITRATE IV Last administered on 11/26/18 15:09; Admin Dose 3.75 MLS/HR; Start 11/26/18 at 13:30 IV Flush (NS 10 ml) 10 ml Q8 IV Last administered on 11/27/18 05:08; Admin Dose 10 ML; Start 11/26/18 at 22:00 Ascorbic Acid (Vitamin C) 500 mg DAILY GTB Last administered on 11/27/18 10:09; Admin Dose 500 MG; Start 11/27/18 at 09:00 Aspirin (Halfprin) 81 mg DAILY PO Last administered on 11/27/18 10:09; Admin Dose 81 MG; Start 11/27/18 at 09:00 Baclofen (Lioresal) 20 mg TID GTB Last administered on 11/27/18 10:10; Admin Dose 20 MG; Start 11/26/18 at 21:00 Cholecalciferol (Vitamin D) 2,000 unit DAILY GTB Last administered on 11/27/18 10:09; Admin Dose 2,000 UNIT; Start 11/27/18 at 09:00 Cyanocobalamin (Vitamin B12) 1,000 mcg DAILY GTB Last administered on 11/27/18 10:09; Admin Dose 1,000 MCG; Start 11/27/18 at 09:00 Vancomycin HCl (Vanco Iv Per Pharmacy) VANCOMYCIN PER PHARMACY PER PROTOCOL XX ; Start 11/26/18 at 18:00 Ceftazidime/ Dextrose 50 ml @ 100 mls/hr Q12H IVPB Last administered on 11/27/18 05:34; Admin Dose 100 MLS/HR; Start 11/27/18 at 05:00 Ciprofloxacin/ Dextrose 200 ml @ 200 mls/hr Q12 IVPB Last administered on 11/26/18 23:35; Admin Dose 200 MLS/HR; Start 11/26/18 at 20:00 Vancomycin/Sodium Chloride 250 ml @ 125 mls/hr Q12H IVPB Last administered on 11/27/18 03:00; Admin Dose 125 MLS/HR; Start 11/27/18 at 03:00 Miscellaneous Information 1 ea NOTE XX ; Start 11/26/18 at 18:30 Glucose (Glutose) 15 gm Q15M PRN PO DECREASED GLUCOSE; Start 11/26/18 at 18:30 Glucose (Glutose) 22.5 gm Q15M PRN PO DECREASED GLUCOSE; Start 11/26/18 at 18:30 Dextrose (D50w Syringe) 25 ml Q15M PRN IV DECREASED GLUCOSE; Start 11/26/18 at 18:30 Dextrose (D50w Syringe) 50 ml Q15M PRN IV DECREASED GLUCOSE; Start 11/26/18 at 18:30 Glucagon (Glucagen) 1 mg Q15M PRN IM DECREASED GLUCOSE; Start 11/26/18 at 18:30 Glucose (Glutose) 15 gm Q15M PRN BUCCAL DECREASED GLUCOSE; Start 11/26/18 at 18:30 Diagnostic Test (Pha) (Accu-Chek) 1 ea 02 XX ; Start 11/27/18 at 02:00 Insulin Aspart (Novolog Insulin Pen) NOVOLOG *MILD* ALGORI... Q4 SC Last administered on 11/27/18at 04:15; Admin Dose 2 UNIT; Start 11/27/18 at 00:00 Miscellaneous Information (*Rx Drug Level Order Reminder*) VANCOMYCIN TROUGH AT 1400 1400 ONCE XX ; Start 11/27/18 at 14:00; Stop 11/27/18 at 14:01 Collagenase (Santyl) 1 applic DAILY TOP Last administered on 11/27/18at 10:11; Admin Dose 1 APPLIC; Start 11/27/18 at 09:00 Collagenase (Santyl) 1 applic PRN PRN TOP .WOUND; Start 11/27/18 at 09:00 IRWIN SKELTON M.D. Nov 27, 2018 10:59
[2018-11-27] MEDS: CIPROFLOXACIN 400MG/D5W 200 ML IVPB SCH ×2 (11:09→21:38)
--- NOTE | 2018-11-27 12:13 | PN ---
Date/Time of Note Date/Time of Note DATE: 11/27/18 TIME: 12:09 Assessment/Plan VTE Prophylaxis Risk score (from [facility])>0 risk: 10 SCD applied (from [facility]): No SCD contraindicated: other Pharmacological prophylaxis: other Pharm contraindication: other Lines/Catheters [facility] PICC Line Central line still needed: Yes Urinary Cath still in place: Yes Reason Cath still needed: urinary retention Assessment/Plan Assessment/Plan - SEPSIS -per ID - Hypernatremia - monitor BMP - If no improvement; will get nephrology consult -Atrial fibrillation/ flutter with rapid ventricular response. Patient is currently in sinus rhythm. - Continue amiodarone. Dr. Monson is following in cardiology consultation. -Progressive supranuclear palsy -Respiratory failure with tracheostomy patient is currently on cool aerosol mist. -Chronic encephalopathy -Decubitus ulcer of the right hip and sacrum, status post Girdlestone procedure of the right hip with flap in September 2018, followed by removal of necrotic tissue by Dr. Triplett at [facility]. -Right hip wound infection with OM of R hip, completed treatment with antibiotics. - surgery follows -Wound dehiscence, s/p repeat debridement at [facility] on 11/03/2018. -Diabetes - GLYCEMIC control -Chronic diastolic CHF -Dysphagia with GT - aspiration precautions -Anemia of chronic disease Further recommendations based on clinical course. Plan of care discussed with Dr. Shannon. DW staff - NAD remains on supplemental oxygen sx follows no new events reported last night dw staff Result Diagram: 11/27/18 0430 11/27/18 0430 Results 24hrs Laboratory Tests Test 11/26/18 15:55 11/26/18 17:28 11/26/18 18:43 11/26/18 21:43 Urine Opiates Negative Screen Urine Negative Barbiturates Urine Negative Amphetamines Screen Urine Negative Benzodiazepines Screen Urine Cocaine Negative Screen Urine Negative Cannabinoids White Blood Count 18.4 #H Red Blood Count 2.06 #L Hemoglobin 5.4 #*L Hematocrit 17.9 #L Mean Corpuscular 86.9 Volume Mean Corpuscular 26.2 L Hemoglobin Mean Corpuscular 30.2 L Hemoglobin Concen t Red Cell 18.2 H Distribution Width Platelet Count 194 # Mean Platelet 10.7 H Volume Immature 1.000 H Granulocytes % Neutrophils % Segmented 78 H Neutrophils % (Manual) Band Neutrophils 16 H % (Manual) Lymphocytes % Lymphocytes % 5 L (Manual) Monocytes % Monocytes % 1 (Manual) Eosinophils % Basophils % Nucleated Red 0.0 Blood Cells % Immature 0.180 H Granulocytes # Neutrophils # Neutrophils # 14.9 H (Manual) Band Neutrophils 2.9 H # Lymphocytes 0.9 (Manual) Lymphocytes # Monocytes # Monocytes # 0.1 L (Manual) Eosinophils # Basophils # Nucleated Red Blood Cells # Platelet Estimate NORMAL Hypochromasia 2+ Anisocytosis 2+ Microcytosis 2+ Sodium Level 148 H Potassium Level 3.2 #L Chloride Level 123 H Carbon Dioxide 22 Level Anion Gap 3 #L Blood Urea 43 #H Nitrogen Creatinine 0.47 Est Glomerular Filtrat Rate mL/min Glucose Level 143 # Calcium Level 6.5 L Total Bilirubin 0.0 L Direct Bilirubin 0.00 Indirect 0.0 Bilirubin Aspartate Amino 26 Transf (AST/SGOT) Alanine 34 Aminotransferase (ALT/SGPT) Alkaline 78 Phosphatase Total Protein 5.0 #L Albumin 2.1 #L Globulin 2.90 Albumin/Globulin 0.72 Ratio Bedside Glucose 141 150 Test 11/26/18 23:29 11/27/18 02:35 11/27/18 04:09 11/27/18 04:30 Bedside Glucose 233 H 184 215 White Blood Count 12.4 #H Red Blood Count 2.95 #L Hemoglobin 8.1 #L Hematocrit 26.9 #L Mean Corpuscular 91.2 Volume Mean Corpuscular 27.5 L Hemoglobin Mean Corpuscular 30.1 L Hemoglobin Concen t Red Cell 15.7 H Distribution Width Platelet Count 141 # Mean Platelet 12.1 H Volume Immature 1.700 H Granulocytes % Neutrophils % Segmented 63 Neutrophils % (Manual) Band Neutrophils 33 H % (Manual) Lymphocytes % Lymphocytes % 4 L (Manual) Monocytes % Eosinophils % Basophils % Nucleated Red 0.0 Blood Cells % Immature 0.210 H Granulocytes # Neutrophils # Neutrophils # 8.3 H (Manual) Band Neutrophils 4.0 H # Lymphocytes 0.4 L (Manual) Lymphocytes # Monocytes # Eosinophils # Basophils # Nucleated Red Blood Cells # Toxic Granulation 1+ Platelet Estimate NORMAL Polychromasia 1+ Poikilocytosis 1+ Anisocytosis 1+ Sodium Level 150 H Potassium Level 4.9 Chloride Level 123 H Carbon Dioxide 17 L Level Anion Gap 10 # Blood Urea 30 #H Nitrogen Creatinine 0.35 L Est Glomerular Filtrat Rate mL/min Glucose Level 133 Calcium Level 5.2 *L Total Bilirubin 0.0 L Direct Bilirubin 0.00 Indirect 0.0 Bilirubin Aspartate Amino 25 Transf (AST/SGOT) Alanine 37 Aminotransferase (ALT/SGPT) Alkaline 54 Phosphatase Total Protein 3.5 #L Albumin 1.6 L Globulin 1.90 Albumin/Globulin 0.84 Ratio Test 11/27/18 05:15 11/27/18 08:34 Lab Scanned BLOOD TRANSFUSIO Report N Bedside Glucose 116 Subjective 24 Hr Interval Summary Free Text/Dictation - NAD remains on supplemental oxygen sx follows no new events reported last night dw staff Subjective hx not possible: pt non-verbal Constitutional: requiring IVF, requiring O2 Exam/Review of Systems Exam Vitals Vital Signs Date Temp Pulse Resp B/P (MAP) Pulse Ox O2 O2 Flow FiO2 Time Delivery Rate 11/27/18 95 24 117/94 100 T Tube 11:00 (102) 11/27/18 10.0 40 09:24 11/27/18 98.9 08:00 Intake and Output 11/26/18 11/26/18 11/27/18 1515:00 23:00 07:00 IntakeIntake Total 22.5 ml 4845.0 ml OutputOutput Total 530 ml 500 ml BalanceBalance -507.5 ml 4345.0 ml Constitutional: non-verbal, frail Psych: nl mood/affect Eyes: nl lids, nl sclera ENMT: nl external ears & nose Neck: other (trach intact) Respiratory: diminished breath sounds Cardiovascular: nl pulses, S3, other (s1s2) Gastrointestinal: soft, other (GT intact) Musculoskeletal: muscle weakness, range of motion, other (BUE/BLE contractures) Extremities: normal pulses Neurological: unresponsive Skin: other Results Results 24hrs Laboratory Tests Test 11/26/18 15:55 11/26/18 17:28 11/26/18 18:43 11/26/18 21:43 Urine Opiates Negative Screen Urine Negative Barbiturates Urine Negative Amphetamines Screen Urine Negative Benzodiazepines Screen Urine Cocaine Negative Screen Urine Negative Cannabinoids White Blood Count 18.4 #H Red Blood Count 2.06 #L Hemoglobin 5.4 #*L Hematocrit 17.9 #L Mean Corpuscular 86.9 Volume Mean Corpuscular 26.2 L Hemoglobin Mean Corpuscular 30.2 L Hemoglobin Concen t Red Cell 18.2 H Distribution Width Platelet Count 194 # Mean Platelet 10.7 H Volume Immature 1.000 H Granulocytes % Neutrophils % Segmented 78 H Neutrophils % (Manual) Band Neutrophils 16 H % (Manual) Lymphocytes % Lymphocytes % 5 L (Manual) Monocytes % Monocytes % 1 (Manual) Eosinophils % Basophils % Nucleated Red 0.0 Blood Cells % Immature 0.180 H Granulocytes # Neutrophils # Neutrophils # 14.9 H (Manual) Band Neutrophils 2.9 H # Lymphocytes 0.9 (Manual) Lymphocytes # Monocytes # Monocytes # 0.1 L (Manual) Eosinophils # Basophils # Nucleated Red Blood Cells # Platelet Estimate NORMAL Hypochromasia 2+ Anisocytosis 2+ Microcytosis 2+ Sodium Level 148 H Potassium Level 3.2 #L Chloride Level 123 H Carbon Dioxide 22 Level Anion Gap 3 #L Blood Urea 43 #H Nitrogen Creatinine 0.47 Est Glomerular Filtrat Rate mL/min Glucose Level 143 # Calcium Level 6.5 L Total Bilirubin 0.0 L Direct Bilirubin 0.00 Indirect 0.0 Bilirubin Aspartate Amino 26 Transf (AST/SGOT) Alanine 34 Aminotransferase (ALT/SGPT) Alkaline 78 Phosphatase Total Protein 5.0 #L Albumin 2.1 #L Globulin 2.90 Albumin/Globulin 0.72 Ratio Bedside Glucose 141 150 Test 11/26/18 23:29 11/27/18 02:35 11/27/18 04:09 11/27/18 04:30 Bedside Glucose 233 H 184 215 White Blood Count 12.4 #H Red Blood Count 2.95 #L Hemoglobin 8.1 #L Hematocrit 26.9 #L Mean Corpuscular 91.2 Volume Mean Corpuscular 27.5 L Hemoglobin Mean Corpuscular 30.1 L Hemoglobin Concen t Red Cell 15.7 H Distribution Width Platelet Count 141 # Mean Platelet 12.1 H Volume Immature 1.700 H Granulocytes % Neutrophils % Segmented 63 Neutrophils % (Manual) Band Neutrophils 33 H % (Manual) Lymphocytes % Lymphocytes % 4 L (Manual) Monocytes % Eosinophils % Basophils % Nucleated Red 0.0 Blood Cells % Immature 0.210 H Granulocytes # Neutrophils # Neutrophils # 8.3 H (Manual) Band Neutrophils 4.0 H # Lymphocytes 0.4 L (Manual) Lymphocytes # Monocytes # Eosinophils # Basophils # Nucleated Red Blood Cells # Toxic Granulation 1+ Platelet Estimate NORMAL Polychromasia 1+ Poikilocytosis 1+ Anisocytosis 1+ Sodium Level 150 H Potassium Level 4.9 Chloride Level 123 H Carbon Dioxide 17 L Level Anion Gap 10 # Blood Urea 30 #H Nitrogen Creatinine 0.35 L Est Glomerular Filtrat Rate mL/min Glucose Level 133 Calcium Level 5.2 *L Total Bilirubin 0.0 L Direct Bilirubin 0.00 Indirect 0.0 Bilirubin Aspartate Amino 25 Transf (AST/SGOT) Alanine 37 Aminotransferase (ALT/SGPT) Alkaline 54 Phosphatase Total Protein 3.5 #L Albumin 1.6 L Globulin 1.90 Albumin/Globulin 0.84 Ratio Test 11/27/18 05:15 11/27/18 08:34 Lab Scanned BLOOD TRANSFUSIO Report N Bedside Glucose 116 Medications Medication Current Medications Sodium Chloride 1,000 ml @ 75 mls/hr [id number] IV Last administered on 11/27/18 01:33; Admin Dose 75 MLS/HR; Start 11/26/18 at 11:30 Norepinephrine 250 ml @ 1.875 mls/ hr TITRATE IV Last administered on 11/26/18 15:09; Admin Dose 3.75 MLS/HR; Start 11/26/18 at 13:30 IV Flush (NS 10 ml) 10 ml Q8 IV Last administered on 11/27/18 05:08; Admin Dose 10 ML; Start 11/26/18 at 22:00 Ascorbic Acid (Vitamin C) 500 mg DAILY GTB Last administered on 11/27/18 10:09; Admin Dose 500 MG; Start 11/27/18 at 09:00 Aspirin (Halfprin) 81 mg DAILY PO Last administered on 11/27/18 10:09; Admin Dose 81 MG; Start 11/27/18 at 09:00 Baclofen (Lioresal) 20 mg TID GTB Last administered on 11/27/18 10:10; Admin Dose 20 MG; Start 11/26/18 at 21:00 Cholecalciferol (Vitamin D) 2,000 unit DAILY GTB Last administered on 11/27/18 10:09; Admin Dose 2,000 UNIT; Start 11/27/18 at 09:00 Cyanocobalamin (Vitamin B12) 1,000 mcg DAILY GTB Last administered on 11/27/18 10:09; Admin Dose 1,000 MCG; Start 11/27/18 at 09:00 Vancomycin HCl (Vanco Iv Per Pharmacy) VANCOMYCIN PER PHARMACY PER PROTOCOL XX ; Start 11/26/18 at 18:00 Ceftazidime/ Dextrose 50 ml @ 100 mls/hr Q12H IVPB Last administered on 11/27/18at 05:34; Admin Dose 100 MLS/HR; Start 11/27/18 at 05:00 Ciprofloxacin/ Dextrose 200 ml @ 200 mls/hr Q12 IVPB Last administered on at 11:09; Admin Dose 200 MLS/HR; Start 11/26/18 at 20:00 Vancomycin/Sodium Chloride 250 ml @ 125 mls/hr Q12H IVPB Last administered on 11/27/18at 03:00; Admin Dose 125 MLS/HR; Start 11/27/18 at 03:00 Miscellaneous Information 1 ea NOTE XX ; Start 11/26/18 at 18:30 Glucose (Glutose) 15 gm Q15M PRN PO DECREASED GLUCOSE; Start 11/26/18 at 18:30 Glucose (Glutose) 22.5 gm Q15M PRN PO DECREASED GLUCOSE; Start 11/26/18 at 18:30 Dextrose (D50w Syringe) 25 ml Q15M PRN IV DECREASED GLUCOSE; Start 11/26/18 at 18:30 Dextrose (D50w Syringe) 50 ml Q15M PRN IV DECREASED GLUCOSE; Start 11/26/18 at 18:30 Glucagon (Glucagen) 1 mg Q15M PRN IM DECREASED GLUCOSE; Start 11/26/18 at 18:30 Glucose (Glutose) 15 gm Q15M PRN BUCCAL DECREASED GLUCOSE; Start 11/26/18 at 18:30 Diagnostic Test (Pha) (Accu-Chek) 1 ea 02 XX ; Start 11/27/18 at 02:00 Insulin Aspart (Novolog Insulin Pen) NOVOLOG *MILD* ALGORI... Q4 SC Last administered on 11/27/18at 04:15; Admin Dose 2 UNIT; Start 11/27/18 at 00:00 Miscellaneous Information (*Rx Drug Level Order Reminder*) VANCOMYCIN TROUGH AT 1400 1400 ONCE XX ; Start 11/27/18 at 14:00; Stop 11/27/18 at 14:01 Collagenase (Santyl) 1 applic PRN PRN TOP .WOUND; Start 11/27/18 at 09:00 NADEEN CHO Nov 27, 2018 12:13
--- NOTE | 2018-11-27 12:49 | CONS ---
Assessment/Plan Assessment/Plan Hospital Course (Demo Recall) 1. sacral and right hip wound: recently completed abx tx for osteo; S/p Girdlestone resection arthroplasty and flap reconstruction 09/23/2018, currently w exposed bone; 11/10/18 CT: (sacrum and coccyx, right femoral stump with osteomyelitis, mild inflammatory phlegmon and presacral space without abscess; right femoral stump dislocation from acetabulum and rotated 90 degrees) -debridement prn -Wound culture pending -continue local care w [place]in's wash -frequent turning and off-loading -low air loss mattress -vitamin c -short term zinc -optimize nutrition -Recommend Ortho consult -ID 2. Fevers: With noted positive blood cultures from blood and urine -Antibiotics per sensitivities>Per ID 3. Respiratory faillure: s/p trach -pulm toilet 4. Supranuclear palsy -injury prevention/supportive 5. DM: -glucose mgt 6. Hypochromic normocytic anemia: -monitor and tx as needed Thank you. Patient seen and examined in collaboration with Dr. Gilmar Wiggins. Consultation Date/Type/Reason Admit Date/Time Nov 26, 2018 at 20:42 Date of Consultation: Nov 27, 2018 Type of Consult Surgical Reason for Consultation Wounds Requesting Provider: NADEEN CHO Date/Time of Note DATE: 11/27/18 TIME: 12:43 Hx of Present Illness Brenda Hernandez is a 73 yo woman who is known to our service from previous admission, with pmh of diabetes, progressive supranuclear palsy, G tube placement, acute hypoxic respiratory failure, s/p trach, chronic sacral decubitus ulcer extending to bilateral buttocks, s/p debridements by Dr. Pierson at [facility], recent Girdlestone resection arthroplasty and flap reconstruction 09/23/2018 and osteomyelitis, treated by ID team with antibiotics. She was again sent from her [place] [facility] care facility with reports of high fevers. She was also noted to be tachycardic and hypotensive and was placed on a vasopressor. No reports of labored breathing, vomiting, diarrhea, hematuria, seizures or rash. Wounds were noted to have moderate drainage however no odor. General surgery was asked to evaluate and manage her wounds. 12 point ros was reviewed except as stated in hpi. Past Medical History As above Home Meds Reported Medications Ondansetron Hcl* (Ondansetron Hcl*) 4 Mg Tablet, 4 MG PO Q6H PRN for n/v, TAB 11/26/18 Ascorbic Acid* (Vitamin C*) 500 Mg Capsule.sa, 500 MG GTB DAILY, CAP 11/26/18 Acetaminophen* (Acetaminophen*) 325 Mg Tablet, 650 MG GTB Q4H PRN for PAIN AND OR ELEVATED TEMP, #30 TAB 11/26/18 Sertraline Hcl* (Sertraline Hcl*) 50 Mg Tablet, 50 MG GTB DAILY, #30 TAB 11/26/18 Protein Supplement (Promod) 946 Ml Liquid, 30 ML GTB for supplement 11/26/18 Lansoprazole* (Lansoprazole*) 30 Mg Capsule.dr, 30 MG GTB BID, CAP 11/26/18 Hydrocodone/Acetaminophen ([place] 5-325 Tablet) 1 Each Tablet, 1 EACH GTB Q4H PRN for PAIN, TAB 11/26/18 Polyethylene Glycol* (Miralax*) 17 Gm Powd.pack, 17 GM GTB BID, #60 PACKET 11/26/18 Metoprolol Tartrate* (Lopressor*) 25 Mg Tab, 25 MG GTB BID, #60 TAB 11/26/18 Lisinopril* (Lisinopril*) 5 Mg Tablet, 5 MG GTB DAILY, #30 TAB 11/26/18 Insulin Aspart* (Novolog Insulin Pen*) 100 Unit/Ml Soln, 0 SC .SLIDING SCALE AC, EA INJECT PER SLIDING SCALE; IF 70-150=0unit; 151-200= 2units; 201-250=4units; 251-300=6units; 301-350=8units; 351-400=10units and Call MD, Subcutaneously before meals and at bedtime fo DM. 11/26/18 Insulin Glargine* (Lantus*) 100 Unit/Ml Soln, 5 UNIT SC QHS, #1 VIAL [id number] SQ AT BEDTIME FOR TYPE 2DIABETES MELLITUS WITHOUT COMPLICATIONS 11/26/18 Levetiracetam* (Keppra*) 500 Mg/5 Ml Solution, 100 MG GTB BID for SEIZURE for 30 Days, BOTTLE 11/26/18 Ipratropium-Albuterol (Ipratropium-Albuterol) 0.5-3 Mg/3 Ml Ampul.neb, 3 ML INHALATION Q6, #30 VIAL 11/26/18 Ferrous Sulfate* (Ferrous Sulfate*) 220 Mg/5 Ml Solution, 330 MG PO BID, ML 11/26/18 Epoetin Haroon (Epogen) 10,000 Units/Ml Soln, 15117 UNITS SC QWED for ANEMIA, VIAL 11/26/18 Cyanocobalamin* (Vitamin B-12*) 1,000 Mcg Tablet.sa, 1000 MCG GTB DAILY, TAB 11/26/18 Clonazepam* (Clonazepam*) 0.5 Mg Tablet, 0.5 MG GTB BID, TAB 11/26/18 Cholecalciferol (Vitamin D3) (VITAMIN D-3) 2,000 Unit Capsule, 2000 UNIT GTB DAILY, CAP 11/26/18 Baclofen* (Baclofen*) 10 Mg Tablet, 20 MG GTB TID for MUSCLE SPASM, TAB 11/26/18 Aspirin* (Aspirin* EC) 81 Mg Tablet.dr, 81 MG GTB DAILY, TAB 11/26/18 Amiodarone Hcl* (Amiodarone Hcl*) 200 Mg Tablet, 200 MG GTB BID for ARRHYTMIA, #60 TAB 11/26/18 Zolpidem Tartrate* (Zolpidem Tartrate*) 5 Mg Tablet, 5 MG GTB QHS PRN for INSOMNIA, #30 TAB 11/26/18 Acidophilus-Bulgaricus* (BD Lactinex*) 1 Pkt Packet, 1 PKT GTB BID, PACKET 11/26/18 Zinc Sulfate* (Zinc Sulfate*) 220 Mg Tablet, 220 MG GTB DAILY for 30 Days, #30 TAKE 1 CAPSULE VIA G-TUBE EVERY DAY 11/26/18 Estrogens Conjugated* (Premarin*) 0.45 Mg Tablet, 1.5 MG PO DAILY 02/18/13 Discontinued Reported Medications [Tramadol] No Conflict Check 06/26/13 [Oxybutynin] No Conflict Check 02/18/13 [Furosemide] No Conflict Check 02/18/13 [Atorvastatin] No Conflict Check 02/18/13 [Lorazepam] No Conflict Check 02/18/13 Medications Current Medications Sodium Chloride 1,000 ml @ 75 mls/hr [id number] IV Last administered on 11/27/18at 01:33; Admin Dose 75 MLS/HR; Start 11/26/18 at 11:30 Norepinephrine 250 ml @ 1.875 mls/ hr TITRATE IV Last administered on 11/26at 15:09; Admin Dose 3.75 MLS/HR; Start 11/26/18 at 13:30 IV Flush (NS 10 ml) 10 ml Q8 IV Last administered on 11/27/18 05:08; Admin Dose 10 ML; Start 11/26/18 at 22:00 Ascorbic Acid (Vitamin C) 500 mg DAILY GTB Last administered on 11/27/18 10:09; Admin Dose 500 MG; Start 11/27/18 at 09:00 Aspirin (Halfprin) 81 mg DAILY PO Last administered on 11/27/18 10:09; Admin Dose 81 MG; Start 11/27/18 at 09:00 Baclofen (Lioresal) 20 mg TID GTB Last administered on 11/27/18 10:10; Admin Dose 20 MG; Start 11/26/18 at 21:00 Cholecalciferol (Vitamin D) 2,000 unit DAILY GTB Last administered on 11/27/18 10:09; Admin Dose 2,000 UNIT; Start 11/27/18 at 09:00 Cyanocobalamin (Vitamin B12) 1,000 mcg DAILY GTB Last administered on 11/27/18 10:09; Admin Dose 1,000 MCG; Start 11/27/18 at 09:00 Vancomycin HCl (Vanco Iv Per Pharmacy) VANCOMYCIN PER PHARMACY PER PROTOCOL XX ; Start 11/26/18 at 18:00 Ceftazidime/ Dextrose 50 ml @ 100 mls/hr Q12H IVPB Last administered on 11/27/18 05:34; Admin Dose 100 MLS/HR; Start 11/27/18 at 05:00 Ciprofloxacin/ Dextrose 200 ml @ 200 mls/hr Q12 IVPB Last administered on 11/27/18 11:09; Admin Dose 200 MLS/HR; Start 11/26/18 at 20:00 Vancomycin/Sodium Chloride 250 ml @ 125 mls/hr Q12H IVPB Last administered on 11/27/18 03:00; Admin Dose 125 MLS/HR; Start 11/27/18 at 03:00 Miscellaneous Information 1 ea NOTE XX ; Start 11/26/18 at 18:30 Glucose (Glutose) 15 gm Q15M PRN PO DECREASED GLUCOSE; Start 11/26/18 at 18:30 Glucose (Glutose) 22.5 gm Q15M PRN PO DECREASED GLUCOSE; Start 11/26/18 at 18:30 Dextrose (D50w Syringe) 25 ml Q15M PRN IV DECREASED GLUCOSE; Start 11/26/18 at 18:30 Dextrose (D50w Syringe) 50 ml Q15M PRN IV DECREASED GLUCOSE; Start 11/26/18 at 18:30 Glucagon (Glucagen) 1 mg Q15M PRN IM DECREASED GLUCOSE; Start 11/26/18 at 18:30 Glucose (Glutose) 15 gm Q15M PRN BUCCAL DECREASED GLUCOSE; Start 11/26/18 at 18:30 Diagnostic Test (Pha) (Accu-Chek) 1 ea 02 XX ; Start 11/27/18 at 02:00 Insulin Aspart (Novolog Insulin Pen) NOVOLOG *MILD* ALGORI... Q4 SC Last administered on 11/27/18at 04:15; Admin Dose 2 UNIT; Start 11/27/18 at 00:00 Miscellaneous Information (*Rx Drug Level Order Reminder*) VANCOMYCIN TROUGH AT 1400 1400 ONCE XX ; Start 11/27/18 at 14:00; Stop 11/27/18 at 14:01 Collagenase (Santyl) 1 applic PRN PRN TOP .WOUND; Start 11/27/18 at 09:00 Dextrose/Sodium Chloride 1,000 ml @ 70 mls/hr [id number] IV ; Start 11/27/18 at 12:30 Allergies: Coded Allergies: Penicillins (Verified Allergy, Unknown, 07/06/13) morphine (Verified Adverse Reaction, Mild, "LOOPY", 10/08/18) Uncoded Allergies: PLASTIC TAPE (Allergy, Unknown, 04/01/07) Past Surgical History As above Past Surgical Hx: other (I&D of R hip) Family History Significant Family History: no pertinent family hx Social History Smoking Status: Unknown if ever smoked Exam/Review of Systems Exam Vitals Vital Signs Date Temp Pulse Resp B/P (MAP) Pulse Ox O2 O2 Flow FiO2 Time Delivery Rate 11/27/18 95 24 117/94 100 T Tube 11:00 (102) 11/27/18 10.0 40 09:24 11/27/18 98.9 08:00 Intake and Output 11/26/18 11/26/18 11/27/18 1515:00 23:00 07:00 IntakeIntake Total 22.5 ml 4845.0 ml OutputOutput Total 530 ml 500 ml BalanceBalance -507.5 ml 4345.0 ml Exam Constitutional: alert, other; No distress Head: normocephalic, atraumatic Eyes: nl conjunctiva, nl lids, nl sclera ENMT: nl external ears & nose, nl lips & teeth, mucosa pink and moist Neck: non-tender Respiratory: normal air movement; No congested cough Cardiovascular: regular rate and rhythm, nl pulses; No edema Gastrointestinal: soft, non-tender; No distended Genitourinary - Female: nl adnexae, nl external genitalia Musculoskeletal: other; No muscle tone Extremities: normal pulses; No edema, No tenderness Neurological: No nl mental status, No nl speech, No nl strength Skin: other; sacral (no odor, moderate drainage, packed); right hip: (Exposed bone, scant slough, no odor, moderate drainage) No rash or lesions, No diaphoresis Results Result Diagram: 11/27/18 04311/27/18 0430 Results 24hrs Laboratory Tests Test 11/26/18 15:55 11/26/18 17:28 11/26/18 18:43 11/26/18 21:43 Urine Opiates Negative Screen Urine Negative Barbiturates Urine Negative Amphetamines Screen Urine Negative Benzodiazepines Screen Urine Cocaine Negative Screen Urine Negative Cannabinoids White Blood Count 18.4 #H Red Blood Count 2.06 #L Hemoglobin 5.4 #*L Hematocrit 17.9 #L Mean Corpuscular 86.9 Volume Mean Corpuscular 26.2 L Hemoglobin Mean Corpuscular 30.2 L Hemoglobin Concen t Red Cell 18.2 H Distribution Width Platelet Count 194 # Mean Platelet 10.7 H Volume Immature 1.000 H Granulocytes % Neutrophils % Segmented 78 H Neutrophils % (Manual) Band Neutrophils 16 H % (Manual) Lymphocytes % Lymphocytes % 5 L (Manual) Monocytes % Monocytes % 1 (Manual) Eosinophils % Basophils % Nucleated Red 0.0 Blood Cells % Immature 0.180 H Granulocytes # Neutrophils # Neutrophils # 14.9 H (Manual) Band Neutrophils 2.9 H # Lymphocytes 0.9 (Manual) Lymphocytes # Monocytes # Monocytes # 0.1 L (Manual) Eosinophils # Basophils # Nucleated Red Blood Cells # Platelet Estimate NORMAL Hypochromasia 2+ Anisocytosis 2+ Microcytosis 2+ Sodium Level 148 H Potassium Level 3.2 #L Chloride Level 123 H Carbon Dioxide 22 Level Anion Gap 3 #L Blood Urea 43 #H Nitrogen Creatinine 0.47 Est Glomerular Filtrat Rate mL/min Glucose Level 143 # Calcium Level 6.5 L Total Bilirubin 0.0 L Direct Bilirubin 0.00 Indirect 0.0 Bilirubin Aspartate Amino 26 Transf (AST/SGOT) Alanine 34 Aminotransferase (ALT/SGPT) Alkaline 78 Phosphatase Total Protein 5.0 #L Albumin 2.1 #L Globulin 2.90 Albumin/Globulin 0.72 Ratio Bedside Glucose 141 150 Test 11/26/18 23:29 11/27/18 02:35 11/27/18 04:09 11/27/18 04:30 Bedside Glucose 233 H 184 215 White Blood Count 12.4 #H Red Blood Count 2.95 #L Hemoglobin 8.1 #L Hematocrit 26.9 #L Mean Corpuscular 91.2 Volume Mean Corpuscular 27.5 L Hemoglobin Mean Corpuscular 30.1 L Hemoglobin Concen t Red Cell 15.7 H Distribution Width Platelet Count 141 # Mean Platelet 12.1 H Volume Immature 1.700 H Granulocytes % Neutrophils % Segmented 63 Neutrophils % (Manual) Band Neutrophils 33 H % (Manual) Lymphocytes % Lymphocytes % 4 L (Manual) Monocytes % Eosinophils % Basophils % Nucleated Red 0.0 Blood Cells % Immature 0.210 H Granulocytes # Neutrophils # Neutrophils # 8.3 H (Manual) Band Neutrophils 4.0 H # Lymphocytes 0.4 L (Manual) Lymphocytes # Monocytes # Eosinophils # Basophils # Nucleated Red Blood Cells # Toxic Granulation 1+ Platelet Estimate NORMAL Polychromasia 1+ Poikilocytosis 1+ Anisocytosis 1+ Sodium Level 150 H Potassium Level 4.9 Chloride Level 123 H Carbon Dioxide 17 L Level Anion Gap 10 # Blood Urea 30 #H Nitrogen Creatinine 0.35 L Est Glomerular Filtrat Rate mL/min Glucose Level 133 Calcium Level 5.2 *L Total Bilirubin 0.0 L Direct Bilirubin 0.00 Indirect 0.0 Bilirubin Aspartate Amino 25 Transf (AST/SGOT) Alanine 37 Aminotransferase (ALT/SGPT) Alkaline 54 Phosphatase Total Protein 3.5 #L Albumin 1.6 L Globulin 1.90 Albumin/Globulin 0.84 Ratio Test 11/27/18 05:15 11/27/18 08:34 Lab Scanned BLOOD TRANSFUSIO Report N Bedside Glucose 116 Medications Medication Current Medications Sodium Chloride 1,000 ml @ 75 mls/hr [id number] IV Last administered on 11/27/18 01:33; Admin Dose 75 MLS/HR; Start 11/26/18 at 11:30 Norepinephrine 250 ml @ 1.875 mls/ hr TITRATE IV Last administered on 11/26/18 15:09; Admin Dose 3.75 MLS/HR; Start 11/26/18 at 13:30 IV Flush (NS 10 ml) 10 ml Q8 IV Last administered on 11/27/18 05:08; Admin Dose 10 ML; Start 11/26/18 at 22:00 Ascorbic Acid (Vitamin C) 500 mg DAILY GTB Last administered on 11/27/18 10:09; Admin Dose 500 MG; Start 11/27/18 at 09:00 Aspirin (Halfprin) 81 mg DAILY PO Last administered on 11/27/18 10:09; Admin Dose 81 MG; Start 11/27/18 at 09:00 Baclofen (Lioresal) 20 mg TID GTB Last administered on 11/27/18 10:10; Admin Dose 20 MG; Start 11/26/18 at 21:00 Cholecalciferol (Vitamin D) 2,000 unit DAILY GTB Last administered on 11/27/18 10:09; Admin Dose 2,000 UNIT; Start 11/27/18 at 09:00 Cyanocobalamin (Vitamin B12) 1,000 mcg DAILY GTB Last administered on 11/27/18 10:09; Admin Dose 1,000 MCG; Start 11/27/18 at 09:00 Vancomycin HCl (Vanco Iv Per Pharmacy) VANCOMYCIN PER PHARMACY PER PROTOCOL XX ; Start 11/26/18 at 18:00 Ceftazidime/ Dextrose 50 ml @ 100 mls/hr Q12H IVPB Last administered on 11/27/18 05:34; Admin Dose 100 MLS/HR; Start 11/27/18 at 05:00 Ciprofloxacin/ Dextrose 200 ml @ 200 mls/hr Q12 IVPB Last administered on 11:09; Admin Dose 200 MLS/HR; Start 11/26/18 at 20:00 Vancomycin/Sodium Chloride 250 ml @ 125 mls/hr Q12H IVPB Last administered on 11/27/18at 03:00; Admin Dose 125 MLS/HR; Start 11/27/18 at 03:00 Miscellaneous Information 1 ea NOTE XX ; Start 11/26/18 at 18:30 Glucose (Glutose) 15 gm Q15M PRN PO DECREASED GLUCOSE; Start 11/26/18 at 18:30 Glucose (Glutose) 22.5 gm Q15M PRN PO DECREASED GLUCOSE; Start 11/26/18 at 18:30 Dextrose (D50w Syringe) 25 ml Q15M PRN IV DECREASED GLUCOSE; Start 11/26/18 at 18:30 Dextrose (D50w Syringe) 50 ml Q15M PRN IV DECREASED GLUCOSE; Start 11/26/18 at 18:30 Glucagon (Glucagen) 1 mg Q15M PRN IM DECREASED GLUCOSE; Start 11/26/18 at 18:30 Glucose (Glutose) 15 gm Q15M PRN BUCCAL DECREASED GLUCOSE; Start 11/26/18 at 18:30 Diagnostic Test (Pha) (Accu-Chek) 1 ea 02 XX ; Start 11/27/18 at 02:00 Insulin Aspart (Novolog Insulin Pen) NOVOLOG *MILD* ALGORI... Q4 SC Last administered on 11/27/18at 04:15; Admin Dose 2 UNIT; Start 11/27/18 at 00:00 Miscellaneous Information (*Rx Drug Level Order Reminder*) VANCOMYCIN TROUGH AT 1400 1400 ONCE XX ; Start 11/27/18 at 14:00; Stop 11/27/18 at 14:01 Collagenase (Santyl) 1 applic PRN PRN TOP .WOUND; Start 11/27/18 at 09:00 Dextrose/Sodium Chloride 1,000 ml @ 70 mls/hr [id number] IV ; Start 11/27/18 at 1 2:30 JOSE ANTONIO MONTGOMERY NP Nov 27, 2018 12:49
[2018-11-27] MEDS: NORepinephrine 8MG/250 ML (PMX 250 ML IV SCH (13:10)
[2018-11-27] MEDS: DEXTROSE 5%-0.45% NACL 1,000 ML IV SCH (13:12)
[2018-11-27] MEDS: DIGOXIN 500 MCG INJ IV SCH ×2 (14:49→20:00)
[2018-11-27] MEDS: LORAZEPAM 2 MG INJ IV PRN (18:18)
--- NOTE | 2018-11-27 19:45 | CONS ---
DATE OF ADMISSION: 11/26/2018 DATE OF CONSULTATION: 11/27/2018 REASON FOR CONSULTATION: Paroxysmal atrial fibrillation and atrial flutter with rapid ventricular response. REQUESTING PHYSICIAN: Dr. Miller. HISTORY OF PRESENT ILLNESS: Ms. Rosales is a 73-year-old female with history of chronic encephalopathy, chronic vegetative state, paroxysmal atrial fibrillation and atrial flutter, systolic congestive heart failure, cardiomyopathy with mildly depressed left ventricular ejection fraction of 40% to 45% by echo, October 2018, progressive supranuclear palsy, anemia, diabetes mellitus, who presented from her chronic care facility with fevers on the . Initially upon arrival, temperature 102.4, blood pressure 154/112, pulse 70, respiratory rate 30, satting 99%. The patient's labs were notable for white count of 24.6, hemoglobin 7.5 and then dropped to 5.4, platelet count of 272. Sodium 147, potassium 5.5, creatinine 0.8, BUN 75. Lactate 2.3, glucose of 429, AST 34, ALT 23. INR of 1.6. Tox screen negative. The patient underwent a chest x-ray revealing mild patchy consolidation of left lung base. The patient's electrocardiogram revealed atrial fib and atrial flutter with a rapid ventricular response with an artifact obscuring much of the baseline and therefore nonspecific ST-T abnormalities. The patient has been admitted to the ICU, placed on the vent via trach and has required initiation of pressor support, which remains on at this time, low dose in the setting has had a rapid atrial fibrillation flutter. PAST MEDICAL HISTORY: As above in HPI. MEDICATIONS CURRENTLY IN HOSPITAL: 1. IV hydration of 70 mL an hour. 2. Aspirin 81 mg daily. 3. Vitamin D. 4. Vitamin B12. 5. Ceftazidime. 6. Vancomycin 7. Baclofen. 8. Levophed pressor support. ALLERGIES 1. PENICILLIN. 2. MORPHINE. SOCIAL HISTORY: No current tobacco, EtOH or illicit drug use. FAMILY HISTORY: No history of sudden cardiac or early CAD. REVIEW OF SYSTEMS: As above in HPI. CONSTITUTIONAL: No fevers or chills. PULMONARY: Chronic respiratory failure. GASTROINTESTINAL: Dysphagia, status post G-tube. GENITOURINARY: No hematuria. MUSCULOSKELETAL: Degenerative joint disease. PSYCHIATRIC: No documented psych history. NEUROLOGIC: Chronic vegetative state. CARDIOVASCULAR: Atrial fibrillation. PHYSICAL EXAMINATION: VITAL SIGNS: Temperature of 98.9, blood pressure most recently 172/94, pulse in the 120s to 130s, satting 100%. GENERAL: The patient is encephalopathic, noncommunicative. NECK: Tracheostomy in place. CHEST: Upper airway transmitted rhonchus sounds. HEART: Tachycardic, irregularly irregular, I/ systolic murmur, nondisplaced PMI. ABDOMEN: Positive bowel sounds, soft. EXTREMITIES: Contracted. Trace edema. Difficult to palpate distal pulses bilateral posterior tibial. LABORATORIES: Most recent from today, white count 12.4, hemoglobin 8.1, platelet count of 141. Sodium 150, potassium 4.9, creatinine of 0.35, BUN 30. IMAGING STUDIES: As above in HPI. No further imaging for my review at this time. ECG: As above in HPI with repeat EKG does not reveal atrial fibrillation with a rapid ventricular response, rate 112, left axis deviation, nonspecific ST findings. IMPRESSION: 1. Atrial fibrillation/atrial flutter with rapid ventricular response. 2. Hypotension/shock state, likely septic. 3. History of cardiomyopathy with mildly depressed left ventricular ejection fraction approximately 40% to 45%. 4. History of congestive heart failure, systolic, chronic. 5. Possible pneumonia. 6. Sepsis. 7. Leukocytosis. 8. Anemia requiring transfusions. 9. Hypernatremia. 10. Coagulopathy. 11. Urinary tract infection. RECOMMENDATIONS: 1. At this time, would maintain the patient in ICU for close monitoring. 2. Wean the patient's Levophed pressor support as possible. 3. We will give the patient dose of digoxin in attempt to improve heart rate control and then consider initiation of amiodarone as necessary. 4. Continue the patient's aspirin for prophylaxis against thrombolic complications in the setting of atrial fibrillation or cardiovascular events with aspirin as tolerated only. 5. Continue the patient's antibiotics and follow up all culture data. 6. Wean the patient's Levophed as possible. 7. Follow the patient's mental status closely. 8. Free water for elevated sodium. Thank you for allowing me to take part in the care of this patient. I will continue to follow her closely with you. Further recommendations will be made as the patient progresses through her inpatient hospital clinical course. Dictated By: MAITE MONTGOMERY/AMBREEN Conf#: [id number] [facility]#: [id number] CC: DOMI MCCALLUM MD; KASH MONDRAGON MD; BRYON MILLER MD;*EndCC* MTDD
[2018-11-27] MEDS: DAKINS 0.0125%(1/40) 473 ML SOLUTION TP SCH (20:52)
[2018-11-27] MEDS: LEVETIRACETAM 500 MG (PMX) 100 ML IVPB SCH (20:52)
[2018-11-28] VITALS (43 sets, daily range): BP systolic 69–137; BP diastolic 44–114; PULSE 55–136; RESP 14–29
[2018-11-28] MEDS: LORAZEPAM 2 MG INJ IV PRN (00:06)
[2018-11-28] MEDS: INSULIN ASPART [NOVOLOG] 3 ML PEN SC SCH ×6 (01:10→21:00)
[2018-11-28] MEDS: ACCU-CHEK XX SCH (02:00)
[2018-11-28] MEDS: VANCOMYCIN 750 MG (PMX) 250 ML IVPB SCH (02:13)
[2018-11-28] MEDS: DEXTROSE 5%-0.45% NACL 1,000 ML IV SCH ×2 (03:07→16:06)
[2018-11-28] MEDS: CEFTAZIDIME 2GM/50 ML (PMX) 50 ML IVPB SCH (05:03)
[2018-11-28] MEDS: BACLOFEN 10 MG TAB GTB SCH ×3 (08:34→21:45)
[2018-11-28] MEDS: ASPIRIN (EC) 81 MG TAB PO SCH (08:34)
[2018-11-28] MEDS: CHOLECALCIFEROL 2,000 UNIT CAP GTB SCH (08:34)
[2018-11-28] MEDS: ASCORBIC ACID 500 MG TAB GTB SCH (08:34)
[2018-11-28] MEDS: CIPROFLOXACIN 400MG/D5W 200 ML IVPB SCH ×2 (08:35→21:45)
[2018-11-28] MEDS: LEVETIRACETAM 500 MG (PMX) 100 ML IVPB SCH ×2 (08:35→21:45)
[2018-11-28] MEDS: DAKINS 0.0125%(1/40) 473 ML SOLUTION TP SCH ×2 (08:36→21:44)
[2018-11-28] MEDS: CYANOCOBALAMIN 500 MCG TAB GTB SCH (08:36)
--- NOTE | 2018-11-28 09:49 | CONS ---
[facility] Name: Brenda Willingham Unit Number: [id number] Date of : 1945 Patient Status: Admitted Inpatient Attending Doctor: Nirmal Shannon MD Edit: IRWIN PINA M.D. on 11/28/18 @ 15:19 Silvana: I discussed the management with MANUEL Chand and agree Assessment/Plan Assessment/Plan Hospital Course (Demo Recall) # sepsis, endovascular infection, respiratory - s/p septic shock due to UTI +/- HCAP +/- wound infection - CoNS in 1 of 2 sets of blood cultures on 11/26/2018, likely contaminant - colonization of the airway by pseudomonas - tracheal aspirate 11/08/18 grew pseudomonas, s/p short course of cipro 11/10/2018-11/15/2018 - h/o sepsis due to bacteremia and pneumonia - h/o bacteremia: blood cultures grew enterococcus faecalis on 09/17/2018 secondary to R hip wound infection as its wound culture on 09/16/2018 grew E. faecalis as well - h/o recurrent acute on chronic hypoxemic respiratory failure secondary to secretion retention, mucous plugging, major left lung atelectasis, severe shunting - h/o probable aspiration pneumonia. - h/o pneumonia due to pseudomonas on 09/30/2018. s/p Levaquin (10/03/18- 10/07/2018), Meropenem (restart 09/30/2018-10/03/18, 10/12/18 - 10/19/2018) and empiric Amikacin (09/30/18-10/03/18) - H/o intubation on 09/30/2018 - H/o tracheostomy on 10/04/2018 - h/o pseudomonas in urine culture on 09/17/2018 with mild pyuria; treated with Cefepime (09/20/2018-09/25/2018) # infection of wound, OM of R hip - MDR A. Baumannii in R hip wound culture on 11/27/2018 - H/o colonization of the wound of R hip by pseudomonas (wound culture on 10/31/2018) - H/o repeat debridement at [facility] on 11/03/[address]. [address] Pierson, the wound appeared clean during the I&D (my conversation with him on 11/06/2018) - H/o stage sacral decubitus ulcer extending to bilateral buttocks. She reportedly had total hip dislocation and exposed femoral head. CT pelvis showed e/o OM. Pt complete IV vancomycin (09/17/2018-10/29/2018) for sacral OM associated with E. faecalis - H/o sharp excisional debridement down to and including bone of the sacrum on 08/22/2018 and 09/19/2018 - H/o excision of R hip ulcer, girdlestone resection arthroplasty and flap reconstruction 09/23/2018. The surgical pathology showed osteomyelitis of R hip bone, soft tissue cellulitis, and bony margin of excision was free of the disease - XR of R hip on 11/09/2009 showed the remaining R femoral shaft in transverse orientation and with lateral deviation - H/o removal of devitalized/necrotic tissue by Dr. Pierson on 10/07/2018 # renal/ - UTI (hematuria on 11/26/2018) d/t MDR A. Baumannii - H/o moderate L hydronephrosis per renal US - funguria, recurrent # heme/neuro - H/o acute on chronic anemia requiring PRBC - Metabolic encephalopathy - Supranuclear palsy - CT brain 11/27/2018 concerning for communicating hydrocephalus # endo, cardiac - Diabetes Mellitus - A fib with RVR - Chronic diastolic HF (EF 40-45% with grade 1 DD per 2D Echo 10/24/2018) - H/o hypertension # allergy - Penicillin allergy (throat swelling) but Pt tolerates cefepime and ceftazidime - Resulted: [id number] <31 Recommendations: - pending results: cultures of blood from 11/26 (CoNS in 1 of 2 bottles) & 11/27 (in process) and tracheal aspirate (pseudomonas) - change ceftazidime to meropenem (11/28/2018-) - DC IV vancomycin - continue IV ciprofloxacin (Pt's strains of pseudomonas have variety of sensitivity) 11/26/2018 while awaiting final culture results - according to Dr. Pierson who performed the wound debridement, Pt needs wound care until granulation tissue builds and infection is cleared. Then he would decide if Pt should get repeat closure or not Management d/w Pt's RN Jeni and with Dr. Pina Critical care time spent: 60 min Consultation Date/Type/Reason Admit Date/Time Nov 26, 2018 at 20:42 Initial Consult Date 11/27/18 Type of Consult Infectious Disease Requesting Provider: NADEEN CHO Date/Time of Note DATE: 11/28/18 TIME: 09:16 24 HR Interval Summary Free Text/Dictation Levophed dc'd at 7am. Urine and hip wound cx growing MDR A. Baumannii per d/w ENFORCEMENT SAFETY OFFICER. CT brain concerning for communicating hydrocephalus. Subjective hx not possible: pt non-verbal Exam/Review of Systems Exam Vitals Vital Signs Date Temp Pulse Resp B/P (MAP) Pulse Ox O2 O2 Flow FiO2 Time Delivery Rate 11/28/18 82 08:00 11/28/18 8.0 35 07:56 11/28/18 99 07:55 11/28/18 20 Aerosol 07:55 T Tube 11/28/18 98.2 112/61 07:30 (78) Intake and Output 11/27/18 11/27/18 11/28/18 1515:00 23:00 07:00 IntakeIntake Total 754.875 ml 831.25 ml 813.4375 ml OutputOutput Total 245 ml 365 ml 235 ml BalanceBalance 509.875 ml 466.25 ml 578.4375 ml Constitutional: well developed, non-verbal, frail, other (chronically debilitated) Psych: other (unable to assess) Head: normocephalic, atraumatic Eyes: nl conjunctiva, nl lids ENMT: nl external ears & nose, nl nasal mucosa & septum, other (Limited exam of OP - MM pink and dry) Neck: other (trach with trach collar in place) Respiratory: diminished breath sounds (mild upper airway coarse breath sounds) Cardiovascular: regular rate and rhythm, nl pulses Gastrointestinal: soft, non-tender, other (G-tube clamped) Genitourinary - Female: other (+Ramires) Musculoskeletal: other (resected R femur is visible in R hip wound) Extremities: other (contractures to all 4 extremities); No edema Neurological: unresponsive (obtunded) Skin: other (blanching erythema of bilateral upper thighs; photos of wounds and nurses notes reviewed) Results Result Diagram: 11/27/18 0430 11/27/18 0430 Results 24hrs Laboratory Tests Test 11/27/18 13:24 11/27/18 15:02 11/27/18 17:01 11/27/18 18:47 Bedside Glucose 149 160 Thyroid 1.030 Stimulating Hormone (TSH) Vancomycin Level 12.1 Trough Creatine Kinase 32 Creatine Kinase 2.3 Index Creatinine Kinase 0.75 MB (Mass) Troponin I 0.021 Test 11/27/18 20:51 11/28/18 00:26 11/28/18 01:07 11/28/18 02:05 Bedside Glucose 153 209 206 Creatine Kinase 31 Creatine Kinase 2.9 Index Creatinine Kinase 0.90 MB (Mass) Troponin I 0.022 Test 11/28/18 03:33 11/28/18 05:02 11/28/18 05:15 11/28/18 09:14 Creatine Kinase 21 L Creatine Kinase 5.4 Index Creatinine Kinase 1.13 MB (Mass) Troponin I 0.029 Triglycerides 249 H Level Cholesterol Level 106 LDL Cholesterol, 39 Calculated HDL Cholesterol 17 L Cholesterol/HDL 6.2 Ratio Bedside Glucose 194 190 Lab Scanned BLOOD TRANSFUSIO Report N Imaging Imaging CT brain 11/27/2018: 1. Disproportionately enlarged lateral, third, and fourth ventricles relative to the sulcal size suggesting the likelihood of communicating hydrocephalus. In the appropriate clinical setting these findings can be seen in normal-pressure hydrocephalus. 2. Severe cortical and central parenchymal volume loss. 3. Moderately severe generalized parenchymal volume loss. 4. Atherosclerosis. 5. Moderate opacification of the bilateral sphenoid sinuses without air fluid levels. Medications Medication Current Medications Norepinephrine 250 ml @ 1.875 mls/ hr TITRATE IV Last administered on 11/27/18at 13:10; Admin Dose 1.875 MLS/HR; Start 11/26/18 at 13:30 IV Flush (NS 10 ml) 10 ml Q8 IV Last administered on 11/28/18at 05:10; Admin Dose 10 ML; Start 11/26/18 at 22:00 Ascorbic Acid (Vitamin C) 500 mg DAILY GTB Last administered on 11/28/18 08:34; Admin Dose 500 MG; Start 11/27/18 at 09:00 Aspirin (Halfprin) 81 mg DAILY PO Last administered on 11/28/18 08:34; Admin Dose 81 MG; Start 11/27/18 at 09:00 Baclofen (Lioresal) 20 mg TID GTB Last administered on 11/28/18 08:34; Admin Dose 20 MG; Start 11/26/18 at 21:00 Cholecalciferol (Vitamin D) 2,000 unit DAILY GTB Last administered on 11/28/18 08:34; Admin Dose 2,000 UNIT; Start 11/27/18 at 09:00 Cyanocobalamin (Vitamin B12) 1,000 mcg DAILY GTB Last administered on 11/28/18 08:36; Admin Dose 1,000 MCG; Start 11/27/18 at 09:00 Vancomycin HCl (Vanco Iv Per Pharmacy) VANCOMYCIN PER PHARMACY PER PROTOCOL XX ; Start 11/26/18 at 18:00 Ceftazidime/ Dextrose 50 ml @ 100 mls/hr Q12H IVPB Last administered on at 05:03; Admin Dose 100 MLS/HR; Start 11/27/18 at 05:00 Ciprofloxacin/ Dextrose 200 ml @ 200 mls/hr Q12 IVPB Last administered on 11/28/18at 08:35; Admin Dose 200 MLS/HR; Start 11/26/18 at 20:00 Vancomycin/Sodium Chloride 250 ml @ 125 mls/hr Q12H IVPB Last administered on 11/28/18at 02:13; Admin Dose 125 MLS/HR; Start 11/27/18 at 03:00 Miscellaneous Information 1 ea NOTE XX ; Start 11/26/18 at 18:30 Glucose (Glutose) 15 gm Q15M PRN PO DECREASED GLUCOSE; Start 11/26/18 at 18:30 Glucose (Glutose) 22.5 gm Q15M PRN PO DECREASED GLUCOSE; Start 11/26/18 at 18:30 Dextrose (D50w Syringe) 25 ml Q15M PRN IV DECREASED GLUCOSE; Start 11/26/18 at 18:30 Dextrose (D50w Syringe) 50 ml Q15M PRN IV DECREASED GLUCOSE; Start 11/26/18 at 18:30 Glucagon (Glucagen) 1 mg Q15M PRN IM DECREASED GLUCOSE; Start 11/26/18 at 18:30 Glucose (Glutose) 15 gm Q15M PRN BUCCAL DECREASED GLUCOSE; Start 11/26/18 at 18:30 Diagnostic Test (Pha) (Accu-Chek) 1 ea 02 XX ; Start 11/27/18 at 02:00 Insulin Aspart (Novolog Insulin Pen) NOVOLOG *MILD* ALGORI... Q4 SC Last administered on 11/28/18 05:06; Admin Dose 2 UNIT; Start 11/27/18 at 00:00 Collagenase (Santyl) 1 applic PRN PRN TOP .WOUND; Start 11/27/18 at 09:00 Dextrose/Sodium Chloride 1,000 ml @ 70 mls/hr [id number] IV Last administered on 11/28/18 03:07; Admin Dose 70 MLS/HR; Start 11/27/18 at 12:30 Sodium Hypochlorite (Dakins Diluted (40)) 1 applic BID TP Last administered on 11/28/18 08:36; Admin Dose 1 APPLIC; Start 11/27/18 at 21:00 Lorazepam (Ativan) 1 mg Q2H PRN IV SEIZURES Last administered on 11/28/18 00:06; Admin Dose 1 MG; Start 11/27/18 at 18:00 Levetiracetam 100 ml @ 400 mls/hr Q12 IVPB Last administered on 11/28/18 08:35; Admin Dose 400 MLS/HR; Start 11/27/18 at 21:00 CONOR CHAND NP Nov 28, 2018 09:27
--- NOTE | 2018-11-28 10:01 | CONS ---
Assessment/Plan Assessment/Plan Assessment/Plan (Daily) Assessment and recommendations; 1. Patient with history of chronic respiratory failure maintained on T-piece admitted for sepsis likely due to underlying pneumonia. 2. UTI with Acinetobacter, as well as Acinetobacter pneumonia. Currently on appropriate antimicrobial regimen. 3. Advancements of neuropathy/dementia. 4. Anemia and thrombocytopenia. 5. Stable seizure disorder. 6. History of cardiac arrhythmia. Continue current supportive care. Antibiotics per ID recommendations. Will o btain follow-up chest x-ray in 24 hours. Prognosis is poor. Consultation Date/Type/Reason Admit Date/Time Nov 26, 2018 at 20:42 Initial Consult Date 11/27/18 Type of Consult Pulmonary/critical care Reason for Consultation Patient condition remains stable. Patient remains essentially unresponsive due to advanced dementia/encephalopathy. Patient however has remained hemodynamically stable. General exam; elderly lady, appears contracted, awake but noncommunicative. Currently in no distress. Requesting Provider: NADEEN CHO Date/Time of Note DATE: 11/28/18 TIME: 09:59 Exam/Review of Systems Exam Vitals Vital Signs Date Temp Pulse Resp B/P (MAP) Pulse Ox O2 O2 Flow FiO2 Time Delivery Rate 11/28/18 82 08:00 11/28/18 8.0 35 07:56 11/28/18 99 07:55 11/28/18 20 Aerosol 07:55 T Tube 11/28/18 98.2 112/61 07:30 (78) Intake and Output 11/27/18 11/27/18 11/28/18 1515:00 23:00 07:00 IntakeIntake Total 754.875 ml 831.25 ml 813.4375 ml OutputOutput Total 245 ml 365 ml 235 ml BalanceBalance 509.875 ml 466.25 ml 578.4375 ml Exam H EENT exam; supple neck, no JVD. No lymphadenopathy. Midline trachea. No thyromegaly. Patient is edentulous. Tracheostomy in place. Attached to T- piece. Chest exam; diminished breath sounds throughout. S1-S2 audible, no murmurs. Regular rhythm. Abdomen exam; scaphoid, G-tube in place. No organomegaly. Bowel sounds audible. Extremity exam; no peripheral edema. Patient does have contractures. LIFT SUPERVISOR exam; patient remains noncommunicative. Results Result Diagram: 11/27/180 11/27/18 043 Results 24hrs Laboratory Tests Test 11/27/18 13:24 11/27/18 15:02 11/27/18 17:01 11/27/18 18:47 Bedside Glucose 149 160 Thyroid 1.030 Stimulating Hormone (TSH) Vancomycin Level 12.1 Trough Creatine Kinase 32 Creatine Kinase 2.3 Index Creatinine Kinase 0.75 MB (Mass) Troponin I 0.021 Test 11/27/18 20:51 11/28/18 00:26 11/28/18 01:07 11/28/18 02:05 Bedside Glucose 153 209 206 Creatine Kinase 31 Creatine Kinase 2.9 Index Creatinine Kinase 0.90 MB (Mass) Troponin I 0.022 Test 11/28/18 03:33 11/28/18 05:02 11/28/18 05:15 11/28/18 09:14 Creatine Kinase 21 L Creatine Kinase 5.4 Index Creatinine Kinase 1.13 MB (Mass) Troponin I 0.029 Triglycerides 249 H Level Cholesterol Level 106 LDL Cholesterol, 39 Calculated HDL Cholesterol 17 L Cholesterol/HDL 6.2 Ratio Bedside Glucose 194 190 Lab Scanned BLOOD TRANSFUSIO Report N Medications Medication Current Medications Norepinephrine 250 ml @ 1.875 mls/ hr TITRATE IV Last administered on 11/27/18 13:10; Admin Dose 1.875 MLS/HR; Start 11/26/18 at 13:30 IV Flush (NS 10 ml) 10 ml Q8 IV Last administered on 11/28/18at 05:10; Admin Do se 10 ML; Start 11/26/18 at 22:00 Ascorbic Acid (Vitamin C) 500 mg DAILY GTB Last administered on 11/28/18at 08:34; Admin Dose 500 MG; Start 11/27/18 at 09:00 Aspirin (Halfprin) 81 mg DAILY PO Last administered on 11/28/18at 08:34; Admin Dose 81 MG; Start 11/27/18 at 09:00 Baclofen (Lioresal) 20 mg TID GTB Last administered on 11/28/18at 08:34; Admin Dose 20 MG; Start 11/26/18 at 21:00 Cholecalciferol (Vitamin D) 2,000 unit DAILY GTB Last administered on 11/28/18 08:34; Admin Dose 2,000 UNIT; Start 11/27/18 at 09:00 Cyanocobalamin (Vitamin B12) 1,000 mcg DAILY GTB Last administered on 11/28/18at 08:36; Admin Dose 1,000 MCG; Start 11/27/18 at 09:00 Vancomycin HCl (Vanco Iv Per Pharmacy) VANCOMYCIN PER PHARMACY PER PROTOCOL XX ; Start 11/26/18 at 18:00 Ciprofloxacin/ Dextrose 200 ml @ 200 mls/hr Q12 IVPB Last administered on 11/28/18at 08:35; Admin Dose 200 MLS/HR; Start 11/26/18 at 20:00 Vancomycin/Sodium Chloride 250 ml @ 125 mls/hr Q12H IVPB Last administered on 11/28/18at 02:13; Admin Dose 125 MLS/HR; Start 11/27/18 at 03:00 Miscellaneous Information 1 ea NOTE XX ; Start 11/26/18 at 18:30 Glucose (Glutose) 15 gm Q15M PRN PO DECREASED GLUCOSE; Start 11/26/18 at 18:30 Glucose (Glutose) 22.5 gm Q15M PRN PO DECREASED GLUCOSE; Start 11/26/18 at 18:30 Dextrose (D50w Syringe) 25 ml Q15M PRN IV DECREASED GLUCOSE; Start 11/26/18 at 18:30 Dextrose (D50w Syringe) 50 ml Q15M PRN IV DECREASED GLUCOSE; Start 11/26/18 at 18:30 Glucagon (Glucagen) 1 mg Q15M PRN IM DECREASED GLUCOSE; Start 11/26/18 at 18:30 Glucose (Glutose) 15 gm Q15M PRN BUCCAL DECREASED GLUCOSE; Start 11/26/18 at 18:30 Diagnostic Test (Pha) (Accu-Chek) 1 ea 02 XX ; Start 11/27/18 at 02:00 Insulin Aspart (Novolog Insulin Pen) NOVOLOG *MILD* ALGORI... Q4 SC Last administered on 11/28/18at 09:23; Admin Dose 2 UNIT; Start 11/27/18 at 00:00 Collagenase (Santyl) 1 applic PRN PRN TOP .WOUND; Start 11/27/18 at 09:00 Dextrose/Sodium Chloride 1,000 ml @ 70 mls/hr [id number] IV Last administered on 11/28/18at 03:07; Admin Dose 70 MLS/HR; Start 11/27/18 at 12:30 Sodium Hypochlorite (Dakins Diluted ()) 1 applic BID TP Last administered on 11/28/18at 08:36; Admin Dose 1 APPLIC; Start 11/27/18 at 21:00 Lorazepam (Ativan) 1 mg Q2H PRN IV SEIZURES Last administered on 11/28/18at 00:06; Admin Dose 1 MG; Start 11/27/18 at 18:00 Levetiracetam 100 ml @ 400 mls/hr Q12 IVPB Last administered on 11/28/18at 08:35; Admin Dose 400 MLS/HR; Start 11/27/18 at 21:00 Meropenem/Sodium Chloride 50 ml @ 100 mls/hr Q8 IVPB ; Start 11/28/18 at 10:00 LINH TEJADA Nov 28, 2018 10:01
[2018-11-28] MEDS: MEROPENEM 1 GM/50ML(PMX) 50 ML IVPB SCH (10:55)
--- NOTE | 2018-11-28 13:08 | PN ---
Date/Time of Note Date/Time of Note DATE: 11/28/18 TIME: 13:04 Assessment/Plan VTE [place]axis [place] [facility] [place]: 11 [place] [facility] [place] SCD contraindicated: other Pharmacological prophylaxis: other Pharm contraindication: other Lines/Catheters IV Catheter Type (from [facility]): Peripheral IV Urinary Cath still in place: Yes Reason Cath still needed: urinary retention Assessment/Plan Hospital Course - SEPSIS -per ID - Hypernatremia - monitor BMP - If no improvement; will get nephrology consult -Atrial fibrillation/ flutter with rapid ventricular response. Patient is currently in sinus rhythm. - Continue amiodarone. Dr. Monson is following in cardiology consultation. -Progressive supranuclear palsy -Respiratory failure with tracheostomy patient is currently on cool aerosol mist. -Chronic encephalopathy -Decubitus ulcer of the right hip and sacrum, status post Girdlestone procedure of the right hip with flap in September 2018, followed by removal of necrotic tissue by Dr. Triplett at [facility]. 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 - surgery follows -Wound dehiscence, s/p repeat debridement at [facility] on 11/03/2018. -Diabetes - GLYCEMIC control -Chronic diastolic CHF -Dysphagia with GT - aspiration precautions -Anemia of chronic disease Further recommendations based on clinical course. Plan of care discussed with Dr. Shannon. staff Result Diagram: 11/27/18 0430 11/27/18 0430 Results 24hrs Laboratory Tests Test 11/27/18 13:24 11/27/18 15:02 11/27/18 17:01 11/27/18 18:47 Bedside Glucose 149 160 Thyroid 1.030 Stimulating Hormone (TSH) Vancomycin Level 12.1 Trough Creatine Kinase 32 Creatine Kinase 2.3 Index Creatinine Kinase 0.75 MB (Mass) Troponin I 0.021 Test 11/27/18 20:51 11/28/18 00:26 11/28/18 01:07 11/28/18 02:05 Bedside Glucose 153 209 206 Creatine Kinase 31 Creatine Kinase 2.9 Index Creatinine Kinase 0.90 MB (Mass) Troponin I 0.022 Test 11/28/18 03:33 11/28/18 05:02 11/28/18 05:15 11/28/18 09:14 Creatine Kinase 21 L Creatine Kinase 5.4 Index Creatinine Kinase 1.13 MB (Mass) Troponin I 0.029 Triglycerides 249 H Level Cholesterol Level 106 LDL Cholesterol, 39 Calculated HDL Cholesterol 17 L Cholesterol/HDL 6.2 Ratio Bedside Glucose 194 190 Lab Scanned BLOOD TRANSFUSIO Report N Test 11/28/18 12:48 Bedside Glucose 142 Subjective 24 Hr Interval Summary Free Text/Dictation - NAD remains on supplemental oxygen sx follows no new events reported last night dw staff Subjective hx not possible: pt non-verbal, pt critical status Constitutional: requiring O2 Exam/Review of Systems Exam Vitals Vital Signs Date Temp Pulse Resp B/P (MAP) Pulse Ox O2 O2 Flow FiO2 Time Delivery Rate 11/28/18 58 12:00 11/28/18 26 128/58 99 T Tube 10:00 (81) 11/28/18 8.0 35 07:56 11/28/18 98.2 07:30 Intake and Output 11/27/18 11/27/18 11/28/18 1515:00 23:00 07:00 IntakeIntake Total 754.875 ml 831.25 ml 813.4375 ml OutputOutput Total 245 ml 365 ml 265 ml BalanceBalance 509.875 ml 466.25 ml 548.4375 ml Constitutional: non-verbal, frail Psych: nl mood/affect Respiratory: diminished breath sounds Gastrointestinal: soft Musculoskeletal: muscle weakness, range of motion, other (BUE/BLE contractures) Extremities: normal pulses Neurological: unresponsive Lymph: nontender Results Results 24hrs Laboratory Tests Test 11/27/18 13:24 11/27/18 15:02 11/27/18 17:01 11/27/18 18:47 Bedside Glucose 149 160 Thyroid 1.030 Stimulating Hormone (TSH) Vancomycin Level 12.1 Trough Creatine Kinase 32 Creatine Kinase 2.3 Index Creatinine Kinase 0.75 MB (Mass) Troponin I 0.021 Test 11/27/18 20:51 11/28/18 00:26 11/28/18 01:07 11/28/18 02:05 Bedside Glucose 153 209 206 Creatine Kinase 31 Creatine Kinase 2.9 Index Creatinine Kinase 0.90 MB (Mass) Troponin I 0.022 Test 11/28/18 03:33 11/28/18 05:02 11/28/18 05:15 11/28/18 09:14 Creatine Kinase 21 L Creatine Kinase 5.4 Index Creatinine Kinase 1.13 MB (Mass) Troponin I 0.029 Triglycerides 249 H Level Cholesterol Level 106 LDL Cholesterol, 39 Calculated HDL Cholesterol 17 L Cholesterol/HDL 6.2 Ratio Bedside Glucose 194 190 Lab Scanned BLOOD TRANSFUSIO Report N Test 11/28/18 12:48 Bedside Glucose 142 Medications Medication Current Medications Norepinephrine 250 ml @ 1.875 mls/ hr TITRATE IV Last administered on 11/27/18 13:10; Admin Dose 1.875 MLS/HR; Start 11/26/18 at 13:30 IV Flush (NS 10 ml) 10 ml Q8 IV Last administered on 11/28/18 05:10; Admin Dose 10 ML; Start 11/26/18 at 22:00 Ascorbic Acid (Vitamin C) 500 mg DAILY GTB Last administered on 11/28/18 08:34; Admin Dose 500 MG; Start 11/27/18 at 09:00 Aspirin (Halfprin) 81 mg DAILY PO Last administered on 11/28/18 08:34; Admin Dose 81 MG; Start 11/27/18 at 09:00 Baclofen (Lioresal) 20 mg TID GTB Last administered on 11/28/18 12:46; Admin Dose 20 MG; Start 11/26/18 at 21:00 Cholecalciferol (Vitamin D) 2,000 unit DAILY GTB Last administered on 11/28/18 08:34; Admin Dose 2,000 UNIT; Start 11/27/18 at 09:00 Cyanocobalamin (Vitamin B12) 1,000 mcg DAILY GTB Last administered on 11/28/18 08:36; Admin Dose 1,000 MCG; Start 11/27/18 at 09:00 Vancomycin HCl (Vanco Iv Per Pharmacy) VANCOMYCIN PER PHARMACY PER PROTOCOL XX ; Start 11/26/18 at 18:00 Ciprofloxacin/ Dextrose 200 ml @ 200 mls/hr Q12 IVPB Last administered on 11/28/18 08:35; Admin Dose 200 MLS/HR; Start 11/26/18 at 20:00 Vancomycin/Sodium Chloride 250 ml @ 125 mls/hr Q12H IVPB Last administered on 11/28/18at 02:13; Admin Dose 125 MLS/HR; Start 11/27/18 at 03:00 Miscellaneous Information 1 ea NOTE XX ; Start 11/26/18 at 18:30 Glucose (Glutose) 15 gm Q15M PRN PO DECREASED GLUCOSE; Start 11/26/18 at 18:30 Glucose (Glutose) 22.5 gm Q15M PRN PO DECREASED GLUCOSE; Start 11/26/18 at 18:30 Dextrose (D50w Syringe) 25 ml Q15M PRN IV DECREASED GLUCOSE; Start 11/26/18 at 18:30 Dextrose (D50w Syringe) 50 ml Q15M PRN IV DECREASED GLUCOSE; Start 11/26/18 at 18:30 Glucagon (Glucagen) 1 mg Q15M PRN IM DECREASED GLUCOSE; Start 11/26/18 at 18:30 Glucose (Glutose) 15 gm Q15M PRN BUCCAL DECREASED GLUCOSE; Start 11/26/18 at 18:30 Diagnostic Test (Pha) (Accu-Chek) 1 ea 02 XX ; Start 11/27/18 at 02:00 Insulin Aspart (Novolog Insulin Pen) NOVOLOG *MILD* ALGORI... Q4 SC Last administered on 11/28/18at 12:55; Admin Dose 1 UNIT; Start 11/27/18 at 00:00 Collagenase (Santyl) 1 applic PRN PRN TOP .WOUND; Start 11/27/18 at 09:00 Dextrose/Sodium Chloride 1,000 ml @ 70 mls/hr [id number] IV Last administered on 11/28/18 03:07; Admin Dose 70 MLS/HR; Start 11/27/18 at 12:30 Sodium Hypochlorite (Dakins Diluted (40)) 1 applic BID TP Last administered on 11/28/18at 08:36; Admin Dose 1 APPLIC; Start 11/27/18 at 21:00 Lorazepam (Ativan) 1 mg Q2H PRN IV SEIZURES Last administered on 11/28/18 00:06; Admin Dose 1 MG; Start 11/27/18 at 18:00 Levetiracetam 100 ml @ 400 mls/hr Q12 IVPB Last administered on 11/28/18at 08:35; Admin Dose 400 MLS/HR; Start 11/27/18 at 21:00 Meropenem/Sodium Chloride 50 ml @ 100 mls/hr Q8 IVPB Last administered on 11/28/18at 10:55; Admin Dose 100 MLS/HR; Start 11/28/18 at 10:00 NADEEN CHO Nov 28, 2018 13:08
--- NOTE | 2018-11-28 13:54 | CONS ---
Assessment/Plan Assessment/Plan Hospital Course 73 yo F with PSP and multiple other comorbidities who is admitted to the [facility] ICU for management of presumed septic shock. On 11/27, she was noted to have new onset seizures... for which neurology is consulted. Now s/p Keppra 1g bolus. The clinical picture is consistent with unprovoked seizures...a potential harbinger of epilepsy... Meningoencephalitis is less likely.. Underlying stroke is not yet excluded.. CTH is without obvious acute intracranial pathology. P: MRI brain for further characterization when medically able EEG to excluded nonconvulsive status OK to cont Keppra 500 BID for now Ativan IV PRN prolonged seizure >5 min or for cluster Other medical management per primary Will follow clinically Consultation Date/Type/Reason Admit Date/Time Nov 26, 2018 at 20:42 Type of Consult Neurology Requesting Provider: NADEEN CHO Date/Time of Note DATE: 11/28/18 TIME: 13:54 Hx of Present Illness 73 yo F with significant PMH of VDRF, progressive supranuclear palsy, DM and other comorbidities who presented to the ED from her SNF for evaluation of fevers. In the ED, she was noted to be tachycardic and hypotensive so she was started on pressors and transferred to ICU. It is additionally elsewhere noted: Hx of Present Illness HISTORY OF PRESENT ILLNESS: Ms. Rosales is a 73-year-old female with history of chronic encephalopathy, chronic vegetative state, paroxysmal atrial fibrillation and atrial flutter, systolic congestive heart failure, cardiomyopathy with mildly depressed left ventricular ejection fraction of 40% to 45% by echo, October 2018, progressive supranuclear palsy, anemia, diabetes mellitus, who presented from her chronic care facility with fevers on the . Initially upon arrival, temperature 102.4, blood pressure 154/112, pulse 160s, respiratory rate 30, satting 99%. The patient's labs were notable for white c ount of 24.6, hemoglobin 7.5 and then dropped to 5.4, platelet count of 272. Sodium 147, potassium 5.5, creatinine 0.8, BUN 75. Lactate 2.3, glucose of 429, AST 34, ALT 23. INR of 1.6. Tox screen negative. The patient underwent a chest x-ray revealing mild patchy consolidation of left lung base. The patient's electrocardiogram revealed atrial fib and atrial flutter with a rapid ventricular response with an artifact obscuring much of the baseline and therefore nonspecific ST-T abnormalities. The patient has been admitted to the ICU, placed on the vent via trach and has required initiation of pressor support, which remains on at this time, low dose in the setting has had a rapid atrial fibrillation flutter. Subjective hx not possible: pt non-verbal, pt critical, pt critical status Exam/Review of Systems Exam Vitals Vital Signs Date Temp Pulse Resp B/P (MAP) Pulse Ox O2 O2 Flow FiO2 Time Delivery Rate 11/28/18 96 8.0 35 13:23 11/28/18 61 20 Aerosol 13:23 T Tube 11/28/18 101/57 13:00 (72) 11/28/18 98.5 12:00 Intake and Output 11/27/18 11/27/18 11/28/18 1515:00 23:00 07:00 IntakeIntake Total 754.875 ml 831.25 ml 813.4375 ml OutputOutput Total 245 ml 365 ml 265 ml BalanceBalance 509.875 ml 466.25 ml 548.4375 ml Exam PE: Gen Appearance: No Apparent Distress HEENT: Trach; on t-bar Cardiovascular: Regular rate Abdomen: Soft; PEG Extremities: Dry; BL wrists contracted NE: The patient was obtunded and nonverbal. Opens eyes to noxious stimuli. Does not track or follow any commands. Cranial nerve examination was limited by mental status. Pupils were equal and reactive to light. There was no afferent pupillary defect. Funduscopic examination was limited. Face was grossly symmetric, w/ present corneal and cough reflexes. Tone was spastic in the UE. Muscle bulk was diminished. I did not see fascic ulations. The patient withdrew to noxious stimulation x 4. Coordination and gait testing was limited by mental status. Arm and leg reflexes were within normal limits and symmetric. Garza's sign was absent. Plantar responses were flexor. Results Result Diagram: 11/27/18 0430 11/27/18 0430 Results 24hrs Laboratory Tests Test 11/27/18 15:02 11/27/18 17:01 11/27/18 18:47 11/27/18 20:51 Thyroid 1.030 Stimulating Hormone (TSH) Vancomycin Level 12.1 Trough Bedside Glucose 160 153 Creatine Kinase 32 Creatine Kinase 2.3 Index Creatinine Kinase 0.75 MB (Mass) Troponin I 0.021 Test 11/28/18 00:26 11/28/18 01:07 11/28/18 02:05 11/28/18 03:33 Creatine Kinase 31 21 L Creatine Kinase 2.9 5.4 Index Creatinine Kinase 0.90 1.13 MB (Mass) Troponin I 0.022 0.029 Bedside Glucose 209 206 Triglycerides 249 H Level Cholesterol Level 106 LDL Cholesterol, 39 Calculated HDL Cholesterol 17 L Cholesterol/HDL 6.2 Ratio Test 11/28/18 05:02 11/28/18 05:15 11/28/18 09:14 11/28/18 12:48 Bedside Glucose 194 190 142 Lab Scanned BLOOD TRANSFUSIO Report N Medications Medication Current Medications Norepinephrine 250 ml @ 1.875 mls/ hr TITRATE IV Last administered on 11/27/18 13:10; Admin Dose 1.875 MLS/HR; Start 11/26/18 at 13:30 IV Flush (NS 10 ml) 10 ml Q8 IV Last administered on 11/28/18 05:10; Admin Dose 10 ML; Start 11/26/18 at 22:00 Ascorbic Acid (Vitamin C) 500 mg DAILY GTB Last administered on 11/28/18 08:34; Admin Dose 500 MG; Start 11/27/18 at 09:00 Aspirin (Halfprin) 81 mg DAILY PO Last administered on 11/28/18 08:34; Admin Dose 81 MG; Start 11/27/18 at 09:00 Baclofen (Lioresal) 20 mg TID GTB Last administered on 11/28/18at 12:46; Admin Dose 20 MG; Start 11/26/18 at 21:00 Cholecalciferol (Vitamin D) 2,000 unit DAILY GTB Last administered on 11/28/18 08:34; Admin Dose 2,000 UNIT; Start 11/27/18 at 09:00 Cyanocobalamin (Vitamin B12) 1,000 mcg DAILY GTB Last administered on 11/28/18at 08:36; Admin Dose 1,000 MCG; Start 11/27/18 at 09:00 Vancomycin HCl (Vanco Iv Per Pharmacy) VANCOMYCIN PER PHARMACY PER PROTOCOL XX ; Start 11/26/18 at 18:00 Ciprofloxacin/ Dextrose 200 ml @ 200 mls/hr Q12 IVPB Last administered on 11/28/18at 08:35; Admin Dose 200 MLS/HR; Start 11/26/18 at 20:00 Vancomycin/Sodium Chloride 250 ml @ 125 mls/hr Q12H IVPB Last administered on 11/28/18at 02:13; Admin Dose 125 MLS/HR; Start 11/27/18 at 03:00 Miscellaneous Information 1 ea NOTE XX ; Start 11/26/18 at 18:30 Glucose (Glutose) 15 gm Q15M PRN PO DECREASED GLUCOSE; Start 11/26/18 at 18:30 Glucose (Glutose) 22.5 gm Q15M PRN PO DECREASED GLUCOSE; Start 11/26/18 at 18:30 Dextrose (D50w Syringe) 25 ml Q15M PRN IV DECREASED GLUCOSE; Start 11/26/18 at 18:30 Dextrose (D50w Syringe) 50 ml Q15M PRN IV DECREASED GLUCOSE; Start 11/26/18 at 18:30 Glucagon (Glucagen) 1 mg Q15M PRN IM DECREASED GLUCOSE; Start 11/26/18 at 18:30 Glucose (Glutose) 15 gm Q15M PRN BUCCAL DECREASED GLUCOSE; Start 11/26/18 at 18:30 Diagnostic Test (Pha) (Accu-Chek) 1 ea 02 XX ; Start 11/27/18 at 02:00 Insulin Aspart (Novolog Insulin Pen) NOVOLOG *MILD* ALGORI... Q4 SC Last administered on 11/28/18at 12:55; Admin Dose 1 UNIT; Start 11/27/18 at 00:00 Collagenase (Santyl) 1 applic PRN PRN TOP .WOUND; Start 11/27/18 at 09:00 Dextrose/Sodium Chloride 1,000 ml @ 70 mls/hr [id number] IV Last administered on 11/28/18at 03:07; Admin Dose 70 MLS/HR; Start 11/27/18 at 12:30 Sodium Hypochlorite (Dakins Diluted ()) 1 applic BID TP Last administered on 11/28/18at 08:36; Admin Dose 1 APPLIC; Start 11/27/18 at 21:00 Lorazepam (Ativan) 1 mg Q2H PRN IV SEIZURES Last administered on 11/28/18at 00:06; Admin Dose 1 MG; Start 11/27/18 at 18:00 Levetiracetam 100 ml @ 400 mls/hr Q12 IVPB Last administered on 11/28/18at 08:35; Admin Dose 400 MLS/HR; Start 11/27/18 at 21:00 Meropenem/Sodium Chloride 50 ml @ 100 mls/hr Q8 IVPB Last administered on 11/28/18at 10:55; Admin Dose 100 MLS/HR; Start 11/28/18 at 10:00 Past Medical History reviewed Home Meds Reported Medications Ondansetron Hcl* (Ondansetron Hcl*) 4 Mg Tablet, 4 MG PO Q6H PRN for n/v, TAB 11/26/18 Ascorbic Acid* (Vitamin C*) 500 Mg Capsule.sa, 500 MG GTB DAILY, CAP 11/26/18 Acetaminophen* (Acetaminophen*) 325 Mg Tablet, 650 MG GTB Q4H PRN for PAIN AND OR ELEVATED TEMP, #30 TAB 11/26/18 Sertraline Hcl* (Sertraline Hcl*) 50 Mg Tablet, 50 MG GTB DAILY, #30 TAB 11/26/18 Protein Supplement (Promod) 946 Ml Liquid, 30 ML GTB for supplement 11/26/18 Lansoprazole* (Lansoprazole*) 30 Mg Capsule.dr, 30 MG GTB BID, CAP 11/26/18 Hydrocodone/Acetaminophen ([place] 5-325 Tablet) 1 Each Tablet, 1 EACH GTB Q4H PRN for PAIN, TAB 11/26/18 Polyethylene Glycol* (Miralax*) 17 Gm Powd.pack, 17 GM GTB BID, #60 PACKET 11/26/18 Metoprolol Tartrate* (Lopressor*) 25 Mg Tab, 25 MG GTB BID, #60 TAB 11/26/18 Lisinopril* (Lisinopril*) 5 Mg Tablet, 5 MG GTB DAILY, #30 TAB 11/26/18 Insulin Aspart* (Novolog Insulin Pen*) 100 Unit/Ml Soln, 0 SC .SLIDING SCALE AC, EA INJECT PER SLIDING SCALE; IF 70-150=0unit; 151-200= 2units; 201-250=4units; 251-300=6units; 301-350=8units; 351-400=10units and Call , Subcutaneously before meals and at bedtime fo DM. 11/26/18 Insulin Glargine* (Lantus*) 100 Unit/Ml Soln, 5 UNIT SC QHS, #1 VIAL [id number] SQ AT BEDTIME FOR TYPE 2DIABETES MELLITUS WITHOUT COMPLICATIONS 11/26/18 Levetiracetam* (Keppra*) 500 Mg/5 Ml Solution, 100 MG GTB BID for SEIZURE for 30 Days, BOTTLE 11/26/18 Ipratropium-Albuterol (Ipratropium-Albuterol) 0.5-3 Mg/3 Ml Ampul.neb, 3 ML INHALATION Q6, #30 VIAL 11/26/18 Ferrous Sulfate* (Ferrous Sulfate*) 220 Mg/5 Ml Solution, 330 MG PO BID, ML 11/26/18 Epoetin Haroon (Epogen) 10,000 Units/Ml Soln, 46182 UNITS SC QWED for ANEMIA, VIAL 11/26/18 Cyanocobalamin* (Vitamin B-12*) 1,000 Mcg Tablet.sa, 1000 MCG GTB DAILY, TAB 11/26/18 Clonazepam* (Clonazepam*) 0.5 Mg Tablet, 0.5 MG GTB BID, TAB 11/26/18 Cholecalciferol (Vitamin D3) (VITAMIN D-3) 2,000 Unit Capsule, 2000 UNIT GTB DAILY, CAP 11/26/18 Baclofen* (Baclofen*) 10 Mg Tablet, 20 MG GTB TID for MUSCLE SPASM, TAB 11/26/18 Aspirin* (Aspirin* EC) 81 Mg Tablet.dr, 81 MG GTB DAILY, TAB 11/26/18 Amiodarone Hcl* (Amiodarone Hcl*) 200 Mg Tablet, 200 MG GTB BID for ARRHYTMIA, #60 TAB 11/26/18 Zolpidem Tartrate* (Zolpidem Tartrate*) 5 Mg Tablet, 5 MG GTB QHS PRN for INSOMNIA, #30 TAB 11/26/18 Acidophilus-Bulgaricus* (BD Lactinex*) 1 Pkt Packet, 1 PKT GTB BID, PACKET 11/26/18 Zinc Sulfate* (Zinc Sulfate*) 220 Mg Tablet, 220 MG GTB DAILY for 30 Days, #30 TAKE 1 CAPSULE VIA G-TUBE EVERY DAY 11/26/18 Estrogens Conjugated* (Premarin*) 0.45 Mg Tablet, 1.5 MG PO DAILY 02/18/13 Discontinued Reported Medications [Tramadol] No Conflict Check 06/26/13 [Oxybutynin] No Conflict Check 02/18/13 [Furosemide] No Conflict Check 02/18/13 [Atorvastatin] No Conflict Check 02/18/13 [Lorazepam] No Conflict Check 02/18/13 Medications Current Medications Norepinephrine 250 ml @ 1.875 mls/ hr TITRATE IV Last administered on 11/27/18 13:10; Admin Dose 1.875 MLS/HR; Start 11/26/18 at 13:30 IV Flush (NS 10 ml) 10 ml Q8 IV Last administered on 11/28/18 05:10; Admin Dose 10 ML; Start 11/26/18 at 22:00 Ascorbic Acid (Vitamin C) 500 mg DAILY GTB Last administered on 11/28/18 08:34; Admin Dose 500 MG; Start 11/27/18 at 09:00 Aspirin (Halfprin) 81 mg DAILY PO Last administered on 11/28/18 08:34; Admin Dose 81 MG; Start 11/27/18 at 09:00 Baclofen (Lioresal) 20 mg TID GTB Last administered on 11/28/18 12:46; Admin Dose 20 MG; Start 11/26/18 at 21:00 Cholecalciferol (Vitamin D) 2,000 unit DAILY GTB Last administered on 11/28/18 08:34; Admin Dose 2,000 UNIT; Start 11/27/18 at 09:00 Cyanocobalamin (Vitamin B12) 1,000 mcg DAILY GTB Last administered on 11/28/18 08:36; Admin Dose 1,000 MCG; Start 11/27/18 at 09:00 Vancomycin HCl (Vanco Iv Per Pharmacy) VANCOMYCIN PER PHARMACY PER PROTOCOL XX ; Start 11/26/18 at 18:00 Ciprofloxacin/ Dextrose 200 ml @ 200 mls/hr Q12 IVPB Last administered on 11/28/18 08:35; Admin Dose 200 MLS/HR; Start 11/26/18 at 20:00 Vancomycin/Sodium Chloride 250 ml @ 125 mls/hr Q12H IVPB Last administered on 11/28/18 02:13; Admin Dose 125 MLS/HR; Start 11/27/18 at 03:00 Miscellaneous Information 1 ea NOTE XX ; Start 11/26/18 at 18:30 Glucose (Glutose) 15 gm Q15M PRN PO DECREASED GLUCOSE; Start 11/26/18 at 18:30 Glucose (Glutose) 22.5 gm Q15M PRN PO DECREASED GLUCOSE; Start 11/26/18 at 18:30 Dextrose (D50w Syringe) 25 ml Q15M PRN IV DECREASED GLUCOSE; Start 11/26/18 at 18:30 Dextrose (D50w Syringe) 50 ml Q15M PRN IV DECREASED GLUCOSE; Start 11/26/18 at 18:30 Glucagon (Glucagen) 1 mg Q15M PRN IM DECREASED GLUCOSE; Start 11/26/18 at 18:30 Glucose (Glutose) 15 gm Q15M PRN BUCCAL DECREASED GLUCOSE; Start 11/26/18 at 18:30 Diagnostic Test (Pha) (Accu-Chek) 1 ea 02 XX ; Start 11/27/18 at 02:00 Insulin Aspart (Novolog Insulin Pen) NOVOLOG *MILD* ALGORI... Q4 SC Last administered on 11/28/18at 12:55; Admin Dose 1 UNIT; Start 11/27/18 at 00:00 Collagenase (Santyl) 1 applic PRN PRN TOP .WOUND; Start 11/27/18 at 09:00 Dextrose/Sodium Chloride 1,000 ml @ 70 mls/hr [id number] IV Last administered on 11/28/18 03:07; Admin Dose 70 MLS/HR; Start 11/27/18 at 12:30 Sodium Hypochlorite (Dakins Diluted (40)) 1 applic BID TP Last administered on 11/28/18 08:36; Admin Dose 1 APPLIC; Start 11/27/18 at 21:00 Lorazepam (Ativan) 1 mg Q2H PRN IV SEIZURES Last administered on 11/28/18 00:06; Admin Dose 1 MG; Start 11/27/18 at 18:00 Levetiracetam 100 ml @ 400 mls/hr Q12 IVPB Last administered on 11/28/18 08:35; Admin Dose 400 MLS/HR; Start 11/27/18 at 21:00 Meropenem/Sodium Chloride 50 ml @ 100 mls/hr Q8 IVPB Last administered on at 10:55; Admin Dose 100 MLS/HR; Start 11/28/18 at 10:00 Allergies: Coded Allergies: Penicillins (Verified Allergy, Unknown, 07/06/13) morphine (Verified Adverse Reaction, Mild, "LOOPY", 10/08/18) Uncoded Allergies: PLASTIC TAPE (Allergy, Unknown, 04/01/07) Past Surgical History reviewed Past Surgical Hx: other (I&D of R hip) Social History reviewed Smoking Status: Unknown if ever smoked TINO PRINCE NP Nov 28, 2018 13:54 JOHN PARK Nov 29, 2018 06:49
[2018-11-28] MEDS: BALSAM PERU/CASTOR OIL 60 GM TUBE TOP SCH (14:54)
--- NOTE | 2018-11-28 15:54 | RADRPT ---
Vent Rate: 112 bpm RR Interval: [address] Interval: 0 msec QRS Duration: 88 msec QT Interval: 310 msec QTC Interval: 423 msec P-R-T [place]: 0 - -12 - -20 degrees Atrial fibrillation with rapid ventricular response Nonspecific ST and T wave abnormality , probably digitalis effect Abnormal ECG Electronically Signed By: Randall Avina
[2018-11-29] VITALS (19 sets, daily range): BP systolic 92–122; BP diastolic 51–72; PULSE 54–85; RESP 0–28
[2018-11-29] MEDS: MEROPENEM 1 GM/50ML(PMX) 50 ML IVPB SCH ×4 (00:20→22:03)
[2018-11-29] MEDS: INSULIN ASPART [NOVOLOG] 3 ML PEN SC SCH ×6 (00:25→21:00)
[2018-11-29] MEDS: ACCU-CHEK XX SCH (02:11)
[2018-11-29] MEDS: LEVETIRACETAM 500 MG (PMX) 100 ML IVPB SCH (07:59)
[2018-11-29] MEDS: CYANOCOBALAMIN 500 MCG TAB GTB SCH (08:03)
[2018-11-29] MEDS: CHOLECALCIFEROL 2,000 UNIT CAP GTB SCH (08:04)
[2018-11-29] MEDS: ASCORBIC ACID 500 MG TAB GTB SCH (08:04)
[2018-11-29] MEDS: BACLOFEN 10 MG TAB GTB SCH ×3 (08:04→22:00)
[2018-11-29] MEDS: BALSAM PERU/CASTOR OIL 60 GM TUBE TOP SCH (08:05)
[2018-11-29] MEDS: ASPIRIN (EC) 81 MG TAB PO SCH (08:05)
[2018-11-29] MEDS: DEXTROSE 5%-0.45% NACL 1,000 ML IV SCH ×2 (08:05→22:02)
[2018-11-29] MEDS: DAKINS 0.0125%(1/40) 473 ML SOLUTION TP SCH ×2 (08:06→22:02)
[2018-11-29] MEDS: CIPROFLOXACIN 400MG/D5W 200 ML IVPB SCH (08:48)
--- NOTE | 2018-11-29 09:50 | CONS ---
Assessment/Plan Assessment/Plan Assessment/Plan (Daily) Chest x-ray showing mild pulmonary vascular congestion. Assessment and recommendations; 1. Patient with history of advanced encephalopathy and chronic respiratory failure maintained on T-piece admitted for bilateral pneumonia due to Acinetobacter with significant clinical and radiological improvement. 2. Interval resolution of hypotension. 3. History of muscle spasms. 4. Stable seizure disorder. 5. History of cardiac arrhythmia. 6. Anemia. Continue current supportive care. Transfer to medical floor. Overall prognosis remains poor. Consultation Date/Type/Reason Admit Date/Time Nov 26, 2018 at 20:42 Initial Consult Date 11/27/18 Type of Consult Pulmonary/critical care Requesting Provider: NADEEN CHO Date/Time of Note DATE: 11/29/18 TIME: 09:48 24 HR Interval Summary Free Text/Dictation Patient's overall condition has improved. Patient has now remained hemodynamically stable off pressor support. General exam; elderly woman, noncommunicative. On T-piece via tracheostomy. Currently in no distress. Exam/Review of Systems Exam Vitals Vital Signs Date Temp Pulse Resp B/P (MAP) Pulse Ox O2 O2 Flow FiO2 Time Delivery Rate 11/29/18 67 08:00 11/29/18 18 97 Aerosol 8.0 35 07:45 11/29/18 97.7 122/72 04:00 (89) Intake and Output 11/28/18 11/28/18 11/29/18 1515:00 23:00 07:00 IntakeIntake Total 1010 ml 400 ml 390 ml OutputOutput Total 245 ml 220 ml 245 ml BalanceBalance 765 ml 180 ml 145 ml Exam H EENT exam; supple neck, no JVD. No lymphadenopathy. Midline trachea. No thyromegaly. Tracheostomy in place. Attached to T-piece. Patient is edentulous. Chest exam; diminished breath sounds throughout. S1-S2 audible, no murmurs. Regular rhythm. Abdomen exam; soft, no organomegaly. G-tube in place. Scaphoid. Bowel sounds audible. Extremity exam; no peripheral edema. Patient does have flexion contractures. [employer] exam; patient remains noncommunicative. Results Result Diagram: 11/29/18 0430 11/29/18 0430 Results 24hrs Laboratory Tests Test 11/28/18 12:48 11/28/18 13:48 11/28/18 17:28 11/28/18 19:51 Bedside Glucose 142 110 White Blood Count 9.4 # 10.9 H Red Blood Count 2.86 L 3.50 #L Hemoglobin 7.5 L 8.9 L Hematocrit 24.9 L 30.4 #L Mean Corpuscular 87.1 86.9 Volume Mean Corpuscular 26.2 L 25.4 L Hemoglobin Mean Corpuscular 30.1 L 29.3 L Hemoglobin Concent Red Cell 17.3 H 17.4 H Distribution Width Platelet Count 209 # 241 Mean Platelet Volume 11.2 H 11.2 H Immature 1.300 H 1.700 H Granulocytes % Neutrophils % 84.8 H 79.0 H Lymphocytes % 8.9 L 11.9 L Monocytes % 3.0 3.1 Eosinophils % 1.8 4.1 Basophils % 0.2 0.2 Nucleated Red Blood 0.0 0.0 Cells % Immature 0.120 H 0.180 H Granulocytes # Neutrophils # 8.0 H 8.6 H Lymphocytes # 0.8 1.3 Monocytes # 0.3 0.3 Eosinophils # 0.2 0.5 Basophils # 0.0 0.0 Nucleated Red Blood 0.0 0.0 Cells # Sodium Level 144 147 H Potassium Level 3.1 L 3.4 L Chloride Level 117 H 119 H Carbon Dioxide Level 22 23 Anion Gap 5 5 Blood Urea Nitrogen 26 H 26 H Creatinine 0.39 L 0.46 Est Glomerular Filtrat Rate mL/min Glucose Level 377 #H 109 # Calcium Level 7.4 L 8.3 L Total Bilirubin 0.2 Direct Bilirubin 0.00 Indirect Bilirubin 0.2 Aspartate Amino 22 Transf (AST/SGOT) Alanine 35 Aminotransferase (AL T/SGPT) Alkaline Phosphatase 71 Total Protein 4.8 #L Albumin 2.1 L Globulin 2.70 Albumin/Globulin 0.77 Ratio Test 11/28/18 22:19 11/29/18 00:21 11/29/18 04:30 11/29/18 05:56 Bedside Glucose 162 155 136 White Blood Count 10.7 Red Blood Count 3.56 L Hemoglobin 9.3 L Hematocrit 30.8 L Mean Corpuscular 86.5 Volume Mean Corpuscular 26.1 L Hemoglobin Mean Corpuscular 30.2 L Hemoglobin Concent Red Cell 17.2 H Distribution Width Platelet Count 264 Mean Platelet Volume 11.5 H Immature 1.400 H Granulocytes % Neutrophils % 82.1 H Lymphocytes % 9.2 L Monocytes % 2.9 Eosinophils % 4.2 Basophils % 0.2 Nucleated Red Blood 0.0 Cells % Immature 0.150 H Granulocytes # Neutrophils # 8.8 H Lymphocytes # 1.0 Monocytes # 0.3 Eosinophils # 0.5 Basophils # 0.0 Nucleated Red Blood 0.0 Cells # Sodium Level 147 H Potassium Level 3.4 L Chloride Level 119 H Carbon Dioxide Level 23 Anion Gap 5 Blood Urea Nitrogen 25 H Creatinine 0.38 L Est Glomerular Filtrat Rate mL/min Glucose Level 134 Calcium Level 8.3 L Total Bilirubin 0.2 Direct Bilirubin 0.00 Indirect Bilirubin 0.2 Aspartate Amino 20 Transf (AST/SGOT) Alanine 35 Aminotransferase (AL T/SGPT) Alkaline Phosphatase 91 Total Protein 5.3 L Albumin 2.4 L Globulin 2.90 Albumin/Globulin 0.82 Ratio Test 11/29/18 08:02 Bedside Glucose 142 Medications Medication Current Medications Norepinephrine 250 ml @ 1.875 mls/ hr TITRATE IV Last administered on 11/27/18 13:10; Admin Dose 1.875 MLS/HR; Start 11/26/18 at 13:30 IV Flush (NS 10 ml) 10 ml Q8 IV Last administered on 11/29/18 06:08; Admin Dose 10 ML; Start 11/26/18 at 22:00 Ascorbic Acid (Vitamin C) 500 mg DAILY GTB Last administered on 11/29/18 08:04; Admin Dose 500 MG; Start 11/27/18 at 09:00 Baclofen (Lioresal) 20 mg TID GTB Last administered on 11/29/18 08:04; Admin Dose 20 MG; Start 11/26/18 at 21:00 Cholecalciferol (Vitamin D) 2,000 unit DAILY GTB Last administered on 11/29/18 08:04; Admin Dose 2,000 UNIT; Start 11/27/18 at 09:00 Cyanocobalamin (Vitamin B12) 1,000 mcg DAILY GTB Last administered on 11/29/18 08:03; Admin Dose 1,000 MCG; Start 11/27/18 at 09:00 Ciprofloxacin/ Dextrose 200 ml @ 200 mls/hr Q12 IVPB Last administered on 11/29/18 08:48; Admin Dose 200 MLS/HR; Start 11/26/18 at 20:00 Miscellaneous Information 1 ea NOTE XX ; Start 11/26/18 at 18:30 Glucose (Glutose) 15 gm Q15M PRN PO DECREASED GLUCOSE; Start 11/26/18 at 18:30 Glucose (Glutose) 22.5 gm Q15M PRN PO DECREASED GLUCOSE; Start 11/26/18 at 18:30 Dextrose (D50w Syringe) 25 ml Q15M PRN IV DECREASED GLUCOSE; Start 11/26/18 at 18:30 Dextrose (D50w Syringe) 50 ml Q15M PRN IV DECREASED GLUCOSE; Start 11/26/18 at 18:30 Glucagon (Glucagen) 1 mg Q15M PRN IM DECREASED GLUCOSE; Start 11/26/18 at 18:30 Glucose (Glutose) 15 gm Q15M PRN BUCCAL DECREASED GLUCOSE; Start 11/26/18 at 18:30 Diagnostic Test (Pha) (Accu-Chek) 1 ea 02 XX Last administered on 11/29/18at 02:11; Admin Dose 1 EA; Start 11/27/18 at 02:00 Insulin Aspart (Novolog Insulin Pen) NOVOLOG *MILD* ALGORI... Q4 SC Last administered on 11/29/18at 08:10; Admin Dose 1 UNIT; Start 11/27/18 at 00:00 Collagenase (Santyl) 1 applic PRN PRN TOP .WOUND; Start 11/27/18 at 09:00 Dextrose/Sodium Chloride 1,000 ml @ 70 mls/hr [id number] IV Last administered on 11/29/18at 08:05; Admin Dose 70 MLS/HR; Start 11/27/18 at 12:30 Sodium Hypochlorite (Dakins Diluted ()) 1 applic BID TP Last administered on 11/29/18at 08:06; Admin Dose 1 APPLIC; Start 11/27/18 at 21:00 Lorazepam (Ativan) 1 mg Q2H PRN IV SEIZURES Last administered on 11/28/18at 00:06; Admin Dose 1 MG; Start 11/27/18 at 18:00 Levetiracetam 100 ml @ 400 mls/hr Q12 IVPB Last administered on 11/29/18at 07:59; Admin Dose 400 MLS/HR; Start 11/27/18 at 21:00 Meropenem/Sodium Chloride 50 ml @ 100 mls/hr Q8 IVPB Last administered on 11/29/18at 06:08; Admin Dose 100 MLS/HR; Start 11/28/18 at 10:00 Aspirin (Aspirin) 81 mg DAILY GTB ; Start 11/29/18 at 10:00 LINH TEJADA Nov 29, 2018 09:50
[2018-11-29] MEDS: ASPIRIN 81 MG TAB GTB SCH (10:08)
--- NOTE | 2018-11-29 12:10 | CONS ---
Assessment/Plan Assessment/Plan Hospital Course (Demo Recall) # sepsis, endovascular infection, respiratory - septic shock due to probable UTI - coag negative Staph in blood cultures on 11/26/2018, probable contaminant - colonization of the airway by pseudomonas and corynebacteria - h/o sepsis due to bacteremia and pneumonia - h/o bacteremia: blood cultures grew enterococcus faecalis on 09/17/2018 secondary to R hip wound infection as its wound culture on 09/16/2018 grew E. faecalis as well - h/o recurrent acute on chronic hypoxemic respiratory failure secondary to secretion retention, mucous plugging, major left lung atelectasis, severe shunting - h/o probable aspiration pneumonia. - h/o pneumonia due to pseudomonas on 09/30/2018. s/p Levaquin (10/03/18- 10/07/2018), Meropenem (restart 09/30/2018-10/03/18, 10/12/18 - 10/19/2018) and empiric Amikacin (09/30/18-10/03/18) - H/o intubation on 09/30/2018 - H/o tracheostomy on 10/04/2018 - h/o pseudomonas in urine culture on 09/17/2018 with mild pyuria; treated with Cefepime (09/20/2018-09/25/2018) # infection of wound, OM of R hip - colonization of the wound of R hip by pseudomonas (wound culture on 10/31/2018), acinetobacter (wound culture on 11/27/2018) - h/o repeat debridement at [facility] on 11/03/[address]. [address] Pierson, the wound appeared clean during the I&D (my conversation with him on 11/06/2018) - H/o stage sacral decubitus ulcer extending to bilateral buttocks. She reportedly had total hip dislocation and exposed femoral head. CT pelvis showed e/o OM. Pt complete IV vancomycin (09/17/2018-10/29/2018) for sacral OM associated with E. faecalis - H/o sharp excisional debridement down to and including bone of the sacrum on 08/22/2018 and 09/19/2018 - H/o excision of R hip ulcer, girdlestone resection arthroplasty and flap reconstruction 09/23/2018. The surgical pathology showed osteomyelitis of R hip bone, soft tissue cellulitis, and bony margin of excision was free of the disease - XR of R hip on 11/09/2009 showed the remaining R femoral shaft in transverse orientation and with lateral deviation - h/o removal of devitalized/necrotic tissue by Dr. Pierson on 10/07/2018 # renal/ - probable UTI (hematuria on 11/26/2018) due to acinetobacter - H/o moderate L hydronephrosis per renal US - funguria, recurrent # heme/neuro - H/o acute on chronic anemia requiring PRBC - Metabolic encephalopathy - Supranuclear palsy # endo, cardiac - Diabetes Mellitus - A fib with RVR - Chronic diastolic HF (EF 40-45% with grade 1 DD per 2D Echo 10/24/2018) - H/o hypertension # allergy - Penicillin allergy (throat swelling) but Pt tolerates cefepime , ceftazidime, meropenem - Resulted: [id number] <31 Recommendations: - d/c IV ciprofloxacin - continue meropenem (11/28/2018-), plan for 3-5 days - according to Dr. Pierson who performed the wound debridement, Pt needs wound care until granulation tissue builds and infection is cleared. Then he would decide if Pt should get repeat closure or not management d/w Pt's RN Lazaro, social media specialist. d/w Dr. Shannon on 11/28/2018 the critical care time I took to care for this Pt day was from 1000 to 1030 Consultation Date/Type/Reason Admit Date/Time Nov 26, 2018 at 20:42 Initial Consult Date 11/26/18 Type of Consult ID Requesting Provider: NADEEN CHO Date/Time of Note DATE: 11/29/18 TIME: 11:37 24 HR Interval Summary Subjective hx not possible: pt non-verbal, pt critical, pt critical status Exam/Review of Systems Exam Vitals Vital Signs Date Temp Pulse Resp B/P (MAP) Pulse Ox O2 O2 Flow FiO2 Time Delivery Rate 11/29/18 67 24 111/56 99 T Tube 8.0 11:00 (74) 11/29/18 98.0 08:00 11/29/18 35 07:45 Intake and Output 11/28/18 11/28/18 11/29/18 1515:00 23:00 07:00 IntakeIntake Total 1010 ml 400 ml 440 ml OutputOutput Total 245 ml 220 ml 245 ml BalanceBalance 765 ml 180 ml 195 ml Constitutional: non-verbal, frail Psych: confusion Head: normocephalic, atraumatic Eyes: nl conjunctiva, other (lids are twitching) ENMT: nl external ears & nose, nl nasal mucosa & septum Neck: No masses Respiratory: diminished breath sounds Cardiovascular: regular rate and rhythm, nl pulses Gastrointestinal: soft, non-tender, other (GT) Musculoskeletal: other (contractured, large wound of R hip with exposed femur) Extremities: normal pulses Neurological: unresponsive Skin: rash or lesions (R hip wound as above) Results Result Diagram: 11/29/18 0430 11/29/18 0430 Results 24hrs Laboratory Tests Test 11/28/18 12:48 11/28/18 13:48 11/28/18 17:28 11/28/18 19:51 Bedside Glucose 142 110 White Blood Count 9.4 # 10.9 H Red Blood Count 2.86 L 3.50 #L Hemoglobin 7.5 L 8.9 L Hematocrit 24.9 L 30.4 #L Mean Corpuscular 87.1 86.9 Volume Mean Corpuscular 26.2 L 25.4 L Hemoglobin Mean Corpuscular 30.1 L 29.3 L Hemoglobin Concent Red Cell 17.3 H 17.4 H Distribution Width Platelet Count 209 # 241 Mean Platelet Volume 11.2 H 11.2 H Immature 1.300 H 1.700 H Granulocytes % Neutrophils % 84.8 H 79.0 H Lymphocytes % 8.9 L 11.9 L Monocytes % 3.0 3.1 Eosinophils % 1.8 4.1 Basophils % 0.2 0.2 Nucleated Red Blood 0.0 0.0 Cells % Immature 0.120 H 0.180 H Granulocytes # Neutrophils # 8.0 H 8.6 H Lymphocytes # 0.8 1.3 Monocytes # 0.3 0.3 Eosinophils # 0.2 0.5 Basophils # 0.0 0.0 Nucleated Red Blood 0.0 0.0 Cells # Sodium Level 144 147 H Potassium Level 3.1 L 3.4 L Chloride Level 117 H 119 H Carbon Dioxide Level 22 23 Anion Gap 5 5 Blood Urea Nitrogen 26 H 26 H Creatinine 0.39 L 0.46 Est Glomerular Filtrat Rate mL/min Glucose Level 377 #H 109 # Calcium Level 7.4 L 8.3 L Total Bilirubin 0.2 Direct Bilirubin 0.00 Indirect Bilirubin 0.2 Aspartate Amino 22 Transf (AST/SGOT) Alanine 35 Aminotransferase (AL T/SGPT) Alkaline Phosphatase 71 Total Protein 4.8 #L Albumin 2.1 L Globulin 2.70 Albumin/Globulin 0.77 Ratio Test 11/28/18 22:19 11/29/18 00:21 11/29/18 04:30 11/29/18 05:56 Bedside Glucose 162 155 136 White Blood Count 10.7 Red Blood Count 3.56 L Hemoglobin 9.3 L Hematocrit 30.8 L Mean Corpuscular 86.5 Volume Mean Corpuscular 26.1 L Hemoglobin Mean Corpuscular 30.2 L Hemoglobin Concent Red Cell 17.2 H Distribution Width Platelet Count 264 Mean Platelet Volume 11.5 H Immature 1.400 H Granulocytes % Neutrophils % 82.1 H Lymphocytes % 9.2 L Monocytes % 2.9 Eosinophils % 4.2 Basophils % 0.2 Nucleated Red Blood 0.0 Cells % Immature 0.150 H Granulocytes # Neutrophils # 8.8 H Lymphocytes # 1.0 Monocytes # 0.3 Eosinophils # 0.5 Basophils # 0.0 Nucleated Red Blood 0.0 Cells # Sodium Level 147 H Potassium Level 3.4 L Chloride Level 119 H Carbon Dioxide Level 23 Anion Gap 5 Blood Urea Nitrogen 25 H Creatinine 0.38 L Est Glomerular Filtrat Rate mL/min Glucose Level 134 Calcium Level 8.3 L Total Bilirubin 0.2 Direct Bilirubin 0.00 Indirect Bilirubin 0.2 Aspartate Amino 20 Transf (AST/SGOT) Alanine 35 Aminotransferase (AL T/SGPT) Alkaline Phosphatase 91 Total Protein 5.3 L Albumin 2.4 L Globulin 2.90 Albumin/Globulin 0.82 Ratio Test 11/29/18 08:02 Bedside Glucose 142 Medications Medication Current Medications IV Flush (NS 10 ml) 10 ml Q8 IV Last administered on 11/29/18at 06:08; Admin Dose 10 ML; Start 11/26/18 at 22:00 Ascorbic Acid (Vitamin C) 500 mg DAILY GTB Last administered on 11/29/18at 08:04; Admin Dose 500 MG; Start 11/27/18 at 09:00 Baclofen (Lioresal) 20 mg TID GTB Last administered on 11/29/18at 08:04; Admin Dose 20 MG; Start 11/26/18 at 21:00 Cholecalciferol (Vitamin D) 2,000 unit DAILY GTB Last administered on 11/29/18at 08:04; Admin Dose 2,000 UNIT; Start 11/27/18 at 09:00 Cyanocobalamin (Vitamin B12) 1,000 mcg DAILY GTB Last administered on 11/29/18at 08:03; Admin Dose 1,000 MCG; Start 11/27/18 at 09:00 Ciprofloxacin/ Dextrose 200 ml @ 200 mls/hr Q12 IVPB Last administered on 11/29/18at 08:48; Admin Dose 200 MLS/HR; Start 11/26/18 at 20:00 Miscellaneous Information 1 ea NOTE XX ; Start 11/26/18 at 18:30 Glucose (Glutose) 15 gm Q15M PRN PO DECREASED GLUCOSE; Start 11/26/18 at 18:30 Glucose (Glutose) 22.5 gm Q15M PRN PO DECREASED GLUCOSE; Start 11/26/18 at 18:30 Dextrose (D50w Syringe) 25 ml Q15M PRN IV DECREASED GLUCOSE; Start 11/26/18 at 18:30 Dextrose (D50w Syringe) 50 ml Q15M PRN IV DECREASED GLUCOSE; Start 11/26/18 at 18:30 Glucagon (Glucagen) 1 mg Q15M PRN IM DECREASED GLUCOSE; Start 11/26/18 at 18:30 Glucose (Glutose) 15 gm Q15M PRN BUCCAL DECREASED GLUCOSE; Start 11/26/18 at 18:30 Diagnostic Test (Pha) (Accu-Chek) 1 ea 02 XX Last administered on 11/29/18at 02:11; Admin Dose 1 EA; Start 11/27/18 at 02:00 Insulin Aspart (Novolog Insulin Pen) NOVOLOG *MILD* ALGORI... Q4 SC Last administered on 11/29/18at 08:10; Admin Dose 1 UNIT; Start 11/27/18 at 00:00 Collagenase (Santyl) 1 applic PRN PRN TOP .WOUND; Start 11/27/18 at 09:00 Dextrose/Sodium Chloride 1,000 ml @ 70 mls/hr [id number] IV Last administered on 11/29/18at 08:05; Admin Dose 70 MLS/HR; Start 11/27/18 at 12:30 Sodium Hypochlorite (Dakins Diluted ()) 1 applic BID TP Last administered on 11/29/18at 08:06; Admin Dose 1 APPLIC; Start 11/27/18 at 21:00 Lorazepam (Ativan) 1 mg Q2H PRN IV SEIZURES Last administered on 11/28/18at 00:06; Admin Dose 1 MG; Start 11/27/18 at 18:00 Levetiracetam 100 ml @ 400 mls/hr Q12 IVPB Last administered on 11/29/18at 07:59; Admin Dose 400 MLS/HR; Start 11/27/18 at 21:00 Meropenem/Sodium Chloride 50 ml @ 100 mls/hr Q8 IVPB Last administered on 11/29/18at 06:08; Admin Dose 100 MLS/HR; Start 11/28/18 at 10:00 Aspirin (Aspirin) 81 mg DAILY GTB Last administered on 11/29/18at 10:08; Admin Dose 81 MG; Start 11/29/18 at 10:00 IRWIN SKELTON M.D. Nov 29, 2018 11:48
--- NOTE | 2018-11-29 12:25 | CONS ---
Assessment/Plan Assessment/Plan Assessment/Plan (Daily) Pneumonia Supra nuclear palsy History of hypertension History of type 2 diabetes Failure to thrive Osteomyelitis right hip Will contact family members established appropriate code, level of care patient would be a candidate for general inpatient care if family members feel that she has poor quality of life. Consultation Date/Type/Reason Admit Date/Time Nov 26, 2018 at 20:42 Date/Time of Note DATE: 11/29/18 TIME: 12:17 Hx of Present Illness Patient is a non-historian his PEG trached has a history of supra nuclear palsy lives in a subacute facility was admitted to [facility] with pneumonia patient is a full code. All information is taken from patient's medical records however there is a granddaughter I will try and contact today to get more information of the patient's past medical history and whether or not family members want to reconsider level of care and goals of care. Other comorb id major medical problems include osteomyelitis of the right hip, urinary tract infection, anemia of chronic disease, severe end-stage dementia, type 2 diabetes and hypertension. 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) Home Meds Reported Medications Ondansetron Hcl* (Ondansetron Hcl*) 4 Mg Tablet, 4 MG PO Q6H PRN for n/v, TAB 11/26/18 Ascorbic Acid* (Vitamin C*) 500 Mg Capsule.sa, 500 MG GTB DAILY, CAP 11/26/18 Acetaminophen* (Acetaminophen*) 325 Mg Tablet, 650 MG GTB Q4H PRN for PAIN AND OR ELEVATED TEMP, #30 TAB 11/26/18 Sertraline Hcl* (Sertraline Hcl*) 50 Mg Tablet, 50 MG GTB DAILY, #30 TAB 11/26/18 Protein Supplement (Promod) 946 Ml Liquid, 30 ML GTB for supplement 11/26/18 Lansoprazole* (Lansoprazole*) 30 Mg Capsule.dr, 30 MG GTB BID, CAP 11/26/18 Hydrocodone/Acetaminophen ([place] 5-325 Tablet) 1 Each Tablet, 1 EACH GTB Q4H PRN for PAIN, TAB 11/26/18 Polyethylene Glycol* (Miralax*) 17 Gm Powd.pack, 17 GM GTB BID, #60 PACKET 11/26/18 Metoprolol Tartrate* (Lopressor*) 25 Mg Tab, 25 MG GTB BID, #60 TAB 11/26/18 Lisinopril* (Lisinopril*) 5 Mg Tablet, 5 MG GTB DAILY, #30 TAB 11/26/18 Insulin Aspart* (Novolog Insulin Pen*) 100 Unit/Ml Soln, 0 SC .SLIDING SCALE AC, EA INJECT PER SLIDING SCALE; IF 70-150=0unit; 151-200= 2units; 201-250=4units; 251-300=6units; 301-350=8units; 351-400=10units and Call MD, Subcutaneously before meals and at bedtime fo DM. 11/26/18 Insulin Glargine* (Lantus*) 100 Unit/Ml Soln, 5 UNIT SC QHS, #1 VIAL [id number] SQ AT BEDTIME FOR TYPE 2DIABETES MELLITUS WITHOUT COMPLICATIONS 11/26/18 Levetiracetam* (Keppra*) 500 Mg/5 Ml Solution, 100 MG GTB BID for SEIZURE for 30 Days, BOTTLE 11/26/18 Ipratropium-Albuterol (Ipratropium-Albuterol) 0.5-3 Mg/3 Ml Ampul.neb, 3 ML INHALATION Q6, #30 VIAL 11/26/18 Ferrous Sulfate* (Ferrous Sulfate*) 220 Mg/5 Ml Solution, 330 MG PO BID, ML 11/26/18 Epoetin Haroon (Epogen) 10,000 Units/Ml Soln, 52402 UNITS SC QWED for ANEMIA, VIAL 11/26/18 Cyanocobalamin* (Vitamin B-12*) 1,000 Mcg Tablet.sa, 1000 MCG GTB DAILY, TAB 11/26/18 Clonazepam* (Clonazepam*) 0.5 Mg Tablet, 0.5 MG GTB BID, TAB 11/26/18 Cholecalciferol (Vitamin D3) (VITAMIN D-3) 2,000 Unit Capsule, 2000 UNIT GTB DAILY, CAP 11/26/18 Baclofen* (Baclofen*) 10 Mg Tablet, 20 MG GTB TID for MUSCLE SPASM, TAB 11/26/18 Aspirin* (Aspirin* EC) 81 Mg Tablet.dr, 81 MG GTB DAILY, TAB 11/26/18 Amiodarone Hcl* (Amiodarone Hcl*) 200 Mg Tablet, 200 MG GTB BID for ARRHYTMIA, #60 TAB 11/26/18 Zolpidem Tartrate* (Zolpidem Tartrate*) 5 Mg Tablet, 5 MG GTB QHS PRN for INSOMNIA, #30 TAB 11/26/18 Acidophilus-Bulgaricus* (BD Lactinex*) 1 Pkt Packet, 1 PKT GTB BID, PACKET 11/26/18 Zinc Sulfate* (Zinc Sulfate*) 220 Mg Tablet, 220 MG GTB DAILY for 30 Days, #30 TAKE 1 CAPSULE VIA G-TUBE EVERY DAY 11/26/18 Estrogens Conjugated* (Premarin*) 0.45 Mg Tablet, 1.5 MG PO DAILY 02/18/13 Discontinued Reported Medications [Tramadol] No Conflict Check 06/26/13 [Oxybutynin] No Conflict Check 02/18/13 [Furosemide] No Conflict Check 02/18/13 [Atorvastatin] No Conflict Check 02/18/13 [Lorazepam] No Conflict Check 02/18/13 Medications Current Medications IV Flush (NS 10 ml) 10 ml Q8 IV Last administered on 11/29/18at 06:08; Admin Dose 10 ML; Start 11/26/18 at 22:00 Ascorbic Acid (Vitamin C) 500 mg DAILY GTB Last administered on 11/29/18at 08:04; Admin Dose 500 MG; Start 11/27/18 at 09:00 Baclofen (Lioresal) 20 mg TID GTB Last administered on 11/29/18at 08:04; Admin Dose 20 MG; Start 11/26/18 at 21:00 Cholecalciferol (Vitamin D) 2,000 unit DAILY GTB Last administered on 11/29/18at 08:04; Admin Dose 2,000 UNIT; Start 11/27/18 at 09:00 Cyanocobalamin (Vitamin B12) 1,000 mcg DAILY GTB Last administered on 11/29/18at 08:03; Admin Dose 1,000 MCG; Start 11/27/18 at 09:00 Ciprofloxacin/ Dextrose 200 ml @ 200 mls/hr Q12 IVPB Last administered on 11/29/18at 08:48; Admin Dose 200 MLS/HR; Start 11/26/18 at 20:00 Miscellaneous Information 1 ea NOTE XX ; Start 11/26/18 at 18:30 Glucose (Glutose) 15 gm Q15M PRN PO DECREASED GLUCOSE; Start 11/26/18 at 18:30 Glucose (Glutose) 22.5 gm Q15M PRN PO DECREASED GLUCOSE; Start 11/26/18 at 18:30 Dextrose (D50w Syringe) 25 ml Q15M PRN IV DECREASED GLUCOSE; Start 11/26/18 at 18:30 Dextrose (D50w Syringe) 50 ml Q15M PRN IV DECREASED GLUCOSE; Start 11/26/18 at 18:30 Glucagon (Glucagen) 1 mg Q15M PRN IM DECREASED GLUCOSE; Start 11/26/18 at 18:30 Glucose (Glutose) 15 gm Q15M PRN BUCCAL DECREASED GLUCOSE; Start 11/26/18 at 18:30 Diagnostic Test (Pha) (Accu-Chek) 1 ea 02 XX Last administered on 11/29/18at 02:11; Admin Dose 1 EA; Start 11/27/18 at 02:00 Insulin Aspart (Novolog Insulin Pen) NOVOLOG *MILD* ALGORI... Q4 SC Last administered on 11/29/18at 08:10; Admin Dose 1 UNIT; Start 11/27/18 at 00:00 Collagenase (Santyl) 1 applic PRN PRN TOP .WOUND; Start 11/27/18 at 09:00 Dextrose/Sodium Chloride 1,000 ml @ 70 mls/hr [id number] IV Last administered on 11/29/18at 08:05; Admin Dose 70 MLS/HR; Start 11/27/18 at 12:30 Sodium Hypochlorite (Dakins Diluted ()) 1 applic BID TP Last administered on 11/29/18at 08:06; Admin Dose 1 APPLIC; Start 11/27/18 at 21:00 Lorazepam (Ativan) 1 mg Q2H PRN IV SEIZURES Last administered on 11/28/18at 00:06; Admin Dose 1 MG; Start 11/27/18 at 18:00 Levetiracetam 100 ml @ 400 mls/hr Q12 IVPB Last administered on 11/29/18at 07:59; Admin Dose 400 MLS/HR; Start 11/27/18 at 21:00 Meropenem/Sodium Chloride 50 ml @ 100 mls/hr Q8 IVPB Last administered on 11/29/18at 06:08; Admin Dose 100 MLS/HR; Start 11/28/18 at 10:00 Aspirin (Aspirin) 81 mg DAILY GTB Last administered on 11/29/18at 10:08; Admin Dose 81 MG; Start 11/29/18 at 10:00 Allergies: Coded Allergies: Penicillins (Verified Allergy, Unknown, 07/06/13) morphine (Verified Adverse Reaction, Mild, "LOOPY", 10/08/18) Uncoded Allergies: PLASTIC TAPE (Allergy, Unknown, 04/01/07) Past Surgical History Past Surgical Hx: other (I&D of R hip) Family History Significant Family History: other Social History Smoking Status: Unknown if ever smoked Exam/Review of Systems Exam Vitals Vital Signs Date Temp Pulse Resp B/P (MAP) Pulse Ox O2 O2 Flow FiO2 Time Delivery Rate 11/29/18 67 24 111/56 99 T Tube 8.0 11:00 (74) 11/29/18 98.0 08:00 11/29/18 35 07:45 Intake and Output 11/28/18 11/28/18 11/29/18 1515:00 23:00 07:00 IntakeIntake Total 1010 ml 400 ml 440 ml OutputOutput Total 245 ml 220 ml 245 ml BalanceBalance 765 ml 180 ml 195 ml Constitutional: distress, frail Neck: nuchal rigidity Respiratory: congested cough, crackles/rales, diminished breath sounds, intercostal retraction, labored breathing Cardiovascular: regular rate and rhythm, nl pulses Neurological: other (Does not communicate stares into space no response to verb al stimuli does not do any purposeful movements sluggish oculocephalics) Results Result Diagram: 11/29/18 0430 11/29/18 0430 Results 24hrs Laboratory Tests Test 11/28/18 12:48 11/28/18 13:48 11/28/18 17:28 11/28/18 19:51 Bedside Glucose 142 110 White Blood Count 9.4 # 10.9 H Red Blood Count 2.86 L 3.50 #L Hemoglobin 7.5 L 8.9 L Hematocrit 24.9 L 30.4 #L Mean Corpuscular 87.1 86.9 Volume Mean Corpuscular 26.2 L 25.4 L Hemoglobin Mean Corpuscular 30.1 L 29.3 L Hemoglobin Concent Red Cell 17.3 H 17.4 H Distribution Width Platelet Count 209 # 241 Mean Platelet Volume 11.2 H 11.2 H Immature 1.300 H 1.700 H Granulocytes % Neutrophils % 84.8 H 79.0 H Lymphocytes % 8.9 L 11.9 L Monocytes % 3.0 3.1 Eosinophils % 1.8 4.1 Basophils % 0.2 0.2 Nucleated Red Blood 0.0 0.0 Cells % Immature 0.120 H 0.180 H Granulocytes # Neutrophils # 8.0 H 8.6 H Lymphocytes # 0.8 1.3 Monocytes # 0.3 0.3 Eosinophils # 0.2 0.5 Basophils # 0.0 0.0 Nucleated Red Blood 0.0 0.0 Cells # Sodium Level 144 147 H Potassium Level 3.1 L 3.4 L Chloride Level 117 H 119 H Carbon Dioxide Level 22 23 Anion Gap 5 5 Blood Urea Nitrogen 26 H 26 H Creatinine 0.39 L 0.46 Est Glomerular Filtrat Rate mL/min Glucose Level 377 #H 109 # Calcium Level 7.4 L 8.3 L Total Bilirubin 0.2 Direct Bilirubin 0.00 Indirect Bilirubin 0.2 Aspartate Amino 22 Transf (AST/SGOT) Alanine 35 Aminotransferase (AL T/SGPT) Alkaline Phosphatase 71 Total Protein 4.8 #L Albumin 2.1 L Globulin 2.70 Albumin/Globulin 0.77 Ratio Test 11/28/18 22:19 11/29/18 00:21 11/29/18 04:30 11/29/18 05:56 Bedside Glucose 162 155 136 White Blood Count 10.7 Red Blood Count 3.56 L Hemoglobin 9.3 L Hematocrit 30.8 L Mean Corpuscular 86.5 Volume Mean Corpuscular 26.1 L Hemoglobin Mean Corpuscular 30.2 L Hemoglobin Concent Red Cell 17.2 H Distribution Width Platelet Count 264 Mean Platelet Volume 11.5 H Immature 1.400 H Granulocytes % Neutrophils % 82.1 H Lymphocytes % 9.2 L Monocytes % 2.9 Eosinophils % 4.2 Basophils % 0.2 Nucleated Red Blood 0.0 Cells % Immature 0.150 H Granulocytes # Neutrophils # 8.8 H Lymphocytes # 1.0 Monocytes # 0.3 Eosinophils # 0.5 Basophils # 0.0 Nucleated Red Blood 0.0 Cells # Sodium Level 147 H Potassium Level 3.4 L Chloride Level 119 H Carbon Dioxide Level 23 Anion Gap 5 Blood Urea Nitrogen 25 H Creatinine 0.38 L Est Glomerular Filtrat Rate mL/min Glucose Level 134 Calcium Level 8.3 L Total Bilirubin 0.2 Direct Bilirubin 0.00 Indirect Bilirubin 0.2 Aspartate Amino 20 Transf (AST/SGOT) Alanine 35 Aminotransferase (AL T/SGPT) Alkaline Phosphatase 91 Total Protein 5.3 L Albumin 2.4 L Globulin 2.90 Albumin/Globulin 0.82 Ratio Test 11/29/18 08:02 Bedside Glucose 142 Medications Medication Current Medications IV Flush (NS 10 ml) 10 ml Q8 IV Last administered on 11/29/18at 06:08; Admin Dose 10 ML; Start 11/26/18 at 22:00 Ascorbic Acid (Vitamin C) 500 mg DAILY GTB Last administered on 11/29/18at 08:04; Admin Dose 500 MG; Start 11/27/18 at 09:00 Baclofen (Lioresal) 20 mg TID GTB Last administered on 11/29/18 08:04; Admin Dose 20 MG; Start 11/26/18 at 21:00 Cholecalciferol (Vitamin D) 2,000 unit DAILY GTB Last administered on 11/29/18 08:04; Admin Dose 2,000 UNIT; Start 11/27/18 at 09:00 Cyanocobalamin (Vitamin B12) 1,000 mcg DAILY GTB Last administered on 11/29/18 08:03; Admin Dose 1,000 MCG; Start 11/27/18 at 09:00 Ciprofloxacin/ Dextrose 200 ml @ 200 mls/hr Q12 IVPB Last administered on 11/29/18at 08:48; Admin Dose 200 MLS/HR; Start 11/26/18 at 20:00 Miscellaneous Information 1 ea NOTE XX ; Start 11/26/18 at 18:30 Glucose (Glutose) 15 gm Q15M PRN PO DECREASED GLUCOSE; Start 11/26/18 at 18:30 Glucose (Glutose) 22.5 gm Q15M PRN PO DECREASED GLUCOSE; Start 11/26/18 at 18:30 Dextrose (D50w Syringe) 25 ml Q15M PRN IV DECREASED GLUCOSE; Start 11/26/18 at 18:30 Dextrose (D50w Syringe) 50 ml Q15M PRN IV DECREASED GLUCOSE; Start 11/26/18 at 18:30 Glucagon (Glucagen) 1 mg Q15M PRN IM DECREASED GLUCOSE; Start 11/26/18 at 18:30 Glucose (Glutose) 15 gm Q15M PRN BUCCAL DECREASED GLUCOSE; Start 11/26/18 at 18:30 Diagnostic Test (Pha) (Accu-Chek) 1 ea 02 XX Last administered on 11/29/18 02:11; Admin Dose 1 EA; Start 11/27/18 at 02:00 Insulin Aspart (Novolog Insulin Pen) NOVOLOG *MILD* ALGORI... Q4 SC Last administered on 11/29/18 08:10; Admin Dose 1 UNIT; Start 11/27/18 at 00:00 Collagenase (Santyl) 1 applic PRN PRN TOP .WOUND; Start 11/27/18 at 09:00 Dextrose/Sodium Chloride 1,000 ml @ 70 mls/hr [id number] IV Last administered on 11/29/18 08:05; Admin Dose 70 MLS/HR; Start 11/27/18 at 12:30 Sodium Hypochlorite (Dakins Diluted ()) 1 applic BID TP Last administered on 11/29/18 08:06; Admin Dose 1 APPLIC; Start 11/27/18 at 21:00 Lorazepam (Ativan) 1 mg Q2H PRN IV SEIZURES Last administered on 11/28/18 00:06; Admin Dose 1 MG; Start 11/27/18 at 18:00 Levetiracetam 100 ml @ 400 mls/hr Q12 IVPB Last administered on 11/29/18 07:59; Admin Dose 400 MLS/HR; Start 11/27/18 at 21:00 Meropenem/Sodium Chloride 50 ml @ 100 mls/hr Q8 IVPB Last administered on 11/29/18 06:08; Admin Dose 100 MLS/HR; Start 11/28/18 at 10:00 Aspirin (Aspirin) 81 mg DAILY GTB Last administered on 11/29/18 10:08; Admin Dose 81 MG; Start 11/29/18 at 10:00 GRACE SMITH Nov 29, 2018 12:25
--- NOTE | 2018-11-29 12:31 | CONS ---
Assessment/Plan Assessment/Plan Hospital Course (Demo Recall) IMPRESSION: 1. Atrial fibrillation/atrial flutter with rapid ventricular response-now in SR 2. Hypotension/shock state, likely septic. 3. History of cardiomyopathy with mildly depressed left ventricular ejection fraction approximately 40% to 45%. 4. History of congestive heart failure, systolic, chronic. 5. Possible pneumonia. 6. Sepsis. 7. Leukocytosis. 8. Anemia requiring transfusions. 9. Hypernatremia. 10. Coagulopathy. 11. Urinary tract infection. Recc: -Tele -serial ecg's -Continue abx's and f/u cx data -Continue [facility] -asa/systemic anticoag held due to anemia requiring transfusions Consultation Date/Type/Reason Admit Date/Time Nov 26, 2018 at 20:42 Initial Consult Date 11/27/18 Type of Consult Cardiology Reason for Consultation hypotension Requesting Provider: NADEEN CHO Date/Time of Note DATE: 11/29/18 TIME: 12:25 Exam/Review of Systems Vital Signs Vitals Vital Signs Date Temp Pulse Resp B/P (MAP) Pulse Ox O2 O2 Flow FiO2 Time Delivery Rate 11/29/18 97 8.0 35 12:03 11/29/18 66 20 Aerosol 12:03 11/29/18 111/56 11:00 (74) 11/29/18 98.0 08:00 Intake and Output 11/28/18 11/28/18 11/29/18 1515:00 23:00 07:00 IntakeIntake Total 1010 ml 400 ml 440 ml OutputOutput Total 245 ml 220 ml 245 ml BalanceBalance 765 ml 180 ml 195 ml Exam Exam Review of Systems: CONSTITUTIONAL: No fevers, chills. PULMONARY: No sob CARDIOVASCULAR: No chest pain/palpitations GASTROINTESTINAL: No nausea/vomiting. GENITOURINARY: No hematuria/dysuria. MUSCULOSKELETAL: No myagias/arthalgias. PSYCHIATRIC: The patient denies depression. NEUROLOGIC: No weakness Constitutional: other (encephalopathic) Head: normocephalic ENMT: mucosa pink and moist Neck: supple, jvd (9 cm water) Respiratory: diminished breath sounds (at bases/B) Cardiovascular: regular rate and rhythm Gastrointestinal: soft, non-tender Musculoskeletal: muscle weakness (generalized) Extremities: edema (none) Neurological: other (No focal deficits) Labs Result Diagram: 11/29/180 11/29/18 0430 Results 24hrs Laboratory Tests Test 11/28/18 12:48 11/28/18 13:48 11/28/18 17:28 11/28/18 19:51 Bedside Glucose 142 110 White Blood Count 9.4 # 10.9 H Red Blood Count 2.86 L 3.50 #L Hemoglobin 7.5 L 8.9 L Hematocrit 24.9 L 30.4 #L Mean Corpuscular 87.1 86.9 Volume Mean Corpuscular 26.2 L 25.4 L Hemoglobin Mean Corpuscular 30.1 L 29.3 L Hemoglobin Concent Red Cell 17.3 H 17.4 H Distribution Width Platelet Count 209 # 241 Mean Platelet Volume 11.2 H 11.2 H Immature 1.300 H 1.700 H Granulocytes % Neutrophils % 84.8 H 79.0 H Lymphocytes % 8.9 L 11.9 L Monocytes % 3.0 3.1 Eosinophils % 1.8 4.1 Basophils % 0.2 0.2 Nucleated Red Blood 0.0 0.0 Cells % Immature 0.120 H 0.180 H Granulocytes # Neutrophils # 8.0 H 8.6 H Lymphocytes # 0.8 1.3 Monocytes # 0.3 0.3 Eosinophils # 0.2 0.5 Basophils # 0.0 0.0 Nucleated Red Blood 0.0 0.0 Cells # Sodium Level 144 147 H Potassium Level 3.1 L 3.4 L Chloride Level 117 H 119 H Carbon Dioxide Level 22 23 Anion Gap 5 5 Blood Urea Nitrogen 26 H 26 H Creatinine 0.39 L 0.46 Est Glomerular Filtrat Rate mL/min Glucose Level 377 #H 109 # Calcium Level 7.4 L 8.3 L Total Bilirubin 0.2 Direct Bilirubin 0.00 Indirect Bilirubin 0.2 Aspartate Amino 22 Transf (AST/SGOT) Alanine 35 Aminotransferase (AL T/SGPT) Alkaline Phosphatase 71 Total Protein 4.8 #L Albumin 2.1 L Globulin 2.70 Albumin/Globulin 0.77 Ratio Test 11/28/18 22:19 11/29/18 00:21 11/29/18 04:30 11/29/18 05:56 Bedside Glucose 162 155 136 White Blood Count 10.7 Red Blood Count 3.56 L Hemoglobin 9.3 L Hematocrit 30.8 L Mean Corpuscular 86.5 Volume Mean Corpuscular 26.1 L Hemoglobin Mean Corpuscular 30.2 L Hemoglobin Concent Red Cell 17.2 H Distribution Width Platelet Count 264 Mean Platelet Volume 11.5 H Immature 1.400 H Granulocytes % Neutrophils % 82.1 H Lymphocytes % 9.2 L Monocytes % 2.9 Eosinophils % 4.2 Basophils % 0.2 Nucleated Red Blood 0.0 Cells % Immature 0.150 H Granulocytes # Neutrophils # 8.8 H Lymphocytes # 1.0 Monocytes # 0.3 Eosinophils # 0.5 Basophils # 0.0 Nucleated Red Blood 0.0 Cells # Sodium Level 147 H Potassium Level 3.4 L Chloride Level 119 H Carbon Dioxide Level 23 Anion Gap 5 Blood Urea Nitrogen 25 H Creatinine 0.38 L Est Glomerular Filtrat Rate mL/min Glucose Level 134 Calcium Level 8.3 L Total Bilirubin 0.2 Direct Bilirubin 0.00 Indirect Bilirubin 0.2 Aspartate Amino 20 Transf (AST/SGOT) Alanine 35 Aminotransferase (AL T/SGPT) Alkaline Phosphatase 91 Total Protein 5.3 L Albumin 2.4 L Globulin 2.90 Albumin/Globulin 0.82 Ratio Test 11/29/18 08:02 Bedside Glucose 142 Medications Medications Current Medications IV Flush (NS 10 ml) 10 ml Q8 IV Last administered on 11/29/18at 06:08; Admin Dose 10 ML; Start 11/26/18 at 22:00 Ascorbic Acid (Vitamin C) 500 mg DAILY GTB Last administered on 11/29/18at 08:04; Admin Dose 500 MG; Start 11/27/18 at 09:00 Baclofen (Lioresal) 20 mg TID GTB Last administered on 11/29/18at 08:04; Admin Dose 20 MG; Start 11/26/18 at 21:00 Cholecalciferol (Vitamin D) 2,000 unit DAILY GTB Last administered on 11/29/18at 08:04; Admin Dose 2,000 UNIT; Start 11/27/18 at 09:00 Cyanocobalamin (Vitamin B12) 1,000 mcg DAILY GTB Last administered on 11/29/18at 08:03; Admin Dose 1,000 MCG; Start 11/27/18 at 09:00 Miscellaneous Information 1 ea NOTE XX ; Start 11/26/18 at 18:30 Glucose (Glutose) 15 gm Q15M PRN PO DECREASED GLUCOSE; Start 11/26/18 at 18:30 Glucose (Glutose) 22.5 gm Q15M PRN PO DECREASED GLUCOSE; Start 11/26/18 at 18:30 Dextrose (D50w Syringe) 25 ml Q15M PRN IV DECREASED GLUCOSE; Start 11/26/18 at 18:30 Dextrose (D50w Syringe) 50 ml Q15M PRN IV DECREASED GLUCOSE; Start 11/26/18 at 18:30 Glucagon (Glucagen) 1 mg Q15M PRN IM DECREASED GLUCOSE; Start 11/26/18 at 18:30 Glucose (Glutose) 15 gm Q15M PRN BUCCAL DECREASED GLUCOSE; Start 11/26/18 at 18:30 Diagnostic Test (Pha) (Accu-Chek) 1 ea 02 XX Last administered on 11/29/18at 02:11; Admin Dose 1 EA; Start 11/27/18 at 02:00 Insulin Aspart (Novolog Insulin Pen) NOVOLOG *MILD* ALGORI... Q4 SC Last administered on 11/29/18at 08:10; Admin Dose 1 UNIT; Start 11/27/18 at 00:00 Collagenase (Santyl) 1 applic PRN PRN TOP .WOUND; Start 11/27/18 at 09:00 Dextrose/Sodium Chloride 1,000 ml @ 70 mls/hr [id number] IV Last administered on 11/29/18at 08:05; Admin Dose 70 MLS/HR; Start 11/27/18 at 12:30 Sodium Hypochlorite (Dakins Diluted (1/40)) 1 applic BID TP Last administered on 11/29/18at 08:06; Admin Dose 1 APPLIC; Start 11/27/18 at 21:00 Lorazepam (Ativan) 1 mg Q2H PRN IV SEIZURES Last administered on 11/28/18at 00:06; Admin Dose 1 MG; Start 11/27/18 at 18:00 Levetiracetam 100 ml @ 400 mls/hr Q12 IVPB Last administered on 11/29/18at 07:59; Admin Dose 400 MLS/HR; Start 11/27/18 at 21:00 Meropenem/Sodium Chloride 50 ml @ 100 mls/hr Q8 IVPB Last administered on 11/29/18at 06:08; Admin Dose 100 MLS/HR; Start 11/28/18 at 10:00 Aspirin (Aspirin) 81 mg DAILY GTB Last administered on 11/29/18at 10:08; Admin Dose 81 MG; Start 11/29/18 at 10:00 MAITE VAZQUEZ Nov 29, 2018 12:31
[2018-11-29] MEDS: LORAZEPAM 2 MG INJ IV PRN (14:39)
--- NOTE | 2018-11-29 14:39 | CONS ---
Assessment/Plan Assessment/Plan Hospital Course 73 yo F with PSP and multiple other comorbidities who is admitted to the [facility] ICU for management of presumed septic shock. On 11/27, she was noted to have new onset seizures... for which neurology is consulted. On 11/29, she was noted to have a recurrence of the same.. The clinical picture could be consistent with epilepsy... Meningoencephalitis is less likely.. MRI brain is reassuringly negative for acute intracranial pathology...though notable for volume loss/ventriculomegaly. EEG was without epileptiform activity.. P: Keppra load x1 then increase maintenance to 1g BID for now Ativan IV PRN prolonged seizure >5 min or for cluster Other medical management per primary Will follow clinically Consultation Date/Type/Reason Admit Date/Time Nov 26, 2018 at 20:42 Type of Consult Neurology Reason for Consultation ? seizure Requesting Provider: NADEEN CHO Date/Time of Note DATE: 11/29/18 TIME: 14:38 24 HR Interval Summary Free Text/Dictation Continues critical care. S/p MRI. Pt reportedly had 3min episode of face/arm twitching today, requiring ativan. Subjective hx not possible: pt non-verbal, pt critical Exam Vital Signs Vitals Vital Signs Date Temp Pulse Resp B/P (MAP) Pulse Ox O2 O2 Flow FiO2 Time Delivery Rate 11/29/18 97 8.0 35 12:03 11/29/18 66 20 Aerosol 12:03 11/29/18 111/56 11:00 (74) 11/29/18 98.0 08:00 Intake and Output 11/28/18 11/28/18 11/29/18 1515:00 23:00 07:00 IntakeIntake Total 1010 ml 400 ml 440 ml OutputOutput Total 245 ml 220 ml 245 ml BalanceBalance 765 ml 180 ml 195 ml Exam PE: Gen Appearance: No Apparent Distress HEENT: Trach; on t-bar Cardiovascular: Regular rate Abdomen: Soft; PEG Extremities: Dry; BL wrists contracted NE: The patient was obtunded and nonverbal. Opens eyes to noxious stimuli. Does not track or follow any commands. Cranial nerve examination was limited by mental status. Pupils were equal and reactive to light. There was no afferent pupillary defect. Funduscopic examination was limited. Face was grossly symmetric, w/ present corneal and cough reflexes. Tone was spastic in the UE. Muscle bulk was diminished. I did not see fasciculations. The patient withdrew to noxious stimulation x 4. Coordination and gait testing was limited by mental status. Arm and leg reflexes were within normal limits and symmetric. Garza's sign was absent. Plantar responses were flexor. TINO PRINCE NP Nov 29, 2018 14:39 JOHN PARK Nov 30, 2018 07:20
[2018-11-29] MEDS ORDERED: LEVETIRACETAM 1000 MG (PMX) 100 ML IVPB ONE (16:30)
--- NOTE | 2018-11-29 17:04 | PN ---
Date/Time of Note Date/Time of Note DATE: 11/29/18 TIME: 17:03 Assessment/Plan VTE Prophylaxis Risk score (from [facility])>0 risk: 10 SCD applied (from [facility]): No SCD contraindicated: other Pharmacological prophylaxis: other Pharm contraindication: other Lines/Catheters IV Catheter Type (from [facility]): Peripheral IV Urinary Cath still in place: Yes Reason Cath still needed: urinary retention Assessment/Plan Assessment/Plan - SEPSIS -per ID - Hypernatremia- 147 - monitor BMP - If no improvement; will get nephrology consult -Atrial fibrillation/ flutter with rapid ventricular response. Patient is currently in sinus rhythm. - Continue amiodarone. Dr. Mnoson is following in cardiology consultation. -Progressive supranuclear palsy -Respiratory failure with tracheostomy patient is currently on cool aerosol mist. -Chronic encephalopathy -Decubitus ulcer of the right hip and sacrum, status post [place] procedure of the right hip with flap in September 2018, followed by removal of necrotic tissue by Dr. Triplett at [facility]. 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 - surgery follows -Wound dehiscence, s/p repeat debridement at [facility] on 11/03/2018. -Diabetes - GLYCEMIC control -Chronic diastolic CHF -Dysphagia with GT - aspiration precautions -Anemia of chronic disease Further recommendations based on clinical course. Plan of care discussed with Dr. Shannon. staff Result Diagram: 11/29/18 0430 11/29/18 0430 Results 24hrs Laboratory Tests Test 11/28/18 17:28 11/28/18 19:51 11/28/18 22:19 11/29/18 00:21 Bedside Glucose 110 162 155 White Blood Count 10.9 H Red Blood Count 3.50 #L Hemoglobin 8.9 L Hematocrit 30.4 #L Mean Corpuscular 86.9 Volume Mean Corpuscular 25.4 L Hemoglobin Mean Corpuscular 29.3 L Hemoglobin Concent Red Cell 17.4 H Distribution Width Platelet Count 241 Mean Platelet Volume 11.2 H Immature 1.700 H Granulocytes % Neutrophils % 79.0 H Lymphocytes % 11.9 L Monocytes % 3.1 Eosinophils % 4.1 Basophils % 0.2 Nucleated Red Blood 0.0 Cells % Immature 0.180 H Granulocytes # Neutrophils # 8.6 H Lymphocytes # 1.3 Monocytes # 0.3 Eosinophils # 0.5 Basophils # 0.0 Nucleated Red Blood 0.0 Cells # Sodium Level 147 H Potassium Level 3.4 L Chloride Level 119 H Carbon Dioxide Level 23 Anion Gap 5 Blood Urea Nitrogen 26 H Creatinine 0.46 Est Glomerular Filtrat Rate mL/min Glucose Level 109 # Calcium Level 8.3 L Test 11/29/18 04:30 11/29/18 05:56 11/29/18 08:02 11/29/18 13:09 White Blood Count 10.7 Red Blood Count 3.56 L Hemoglobin 9.3 L Hematocrit 30.8 L Mean Corpuscular 86.5 Volume Mean Corpuscular 26.1 L Hemoglobin Mean Corpuscular 30.2 L Hemoglobin Concent Red Cell 17.2 H Distribution Width Platelet Count 264 Mean Platelet Volume 11.5 H Immature 1.400 H Granulocytes % Neutrophils % 82.1 H Lymphocytes % 9.2 L Monocytes % 2.9 Eosinophils % 4.2 Basophils % 0.2 Nucleated Red Blood 0.0 Cells % Immature 0.150 H Granulocytes # Neutrophils # 8.8 H Lymphocytes # 1.0 Monocytes # 0.3 Eosinophils # 0.5 Basophils # 0.0 Nucleated Red Blood 0.0 Cells # Sodium Level 147 H Potassium Level 3.4 L Chloride Level 119 H Carbon Dioxide Level 23 Anion Gap 5 Blood Urea Nitrogen 25 H Creatinine 0.38 L Est Glomerular Filtrat Rate mL/min Glucose Level 134 Calcium Level 8.3 L Total Bilirubin 0.2 Direct Bilirubin 0.00 Indirect Bilirubin 0.2 Aspartate Amino 20 Transf (AST/SGOT) Alanine 35 Aminotransferase (AL T/SGPT) Alkaline Phosphatase 91 Total Protein 5.3 L Albumin 2.4 L Globulin 2.90 Albumin/Globulin 0.82 Ratio Bedside Glucose 136 142 134 Subjective 24 Hr Interval Summary Free Text/Dictation - NAD - afebrile; remains on supplemental oxygen -sx follows no new events reported last night dw staff Subjective hx not possible: pt non-verbal Constitutional: requiring O2 Musculoskeletal: bone/joint pain, restricted range of motion Exam/Review of Systems Exam Vitals Vital Signs Date Temp Pulse Resp B/P (MAP) Pulse Ox O2 O2 Flow FiO2 Time Delivery Rate 11/29/18 70 29 100 Aerosol 5.0 28 16:10 11/29/18 111/56 11:00 (74) 11/29/18 98.0 08:00 Intake and Output 11/28/18 11/28/18 11/29/18 1515:00 23:00 07:00 IntakeIntake Total 1010 ml 400 ml 440 ml OutputOutput Total 245 ml 220 ml 245 ml BalanceBalance 765 ml 180 ml 195 ml Constitutional: non-verbal, frail Psych: nl mood/affect Eyes: nl lids, nl sclera ENMT: nl external ears & nose Neck: other (trach intact) Respiratory: diminished breath sounds, other Cardiovascular: nl pulses, other (s1s2) Gastrointestinal: soft, other (gt intact) Musculoskeletal: joint tenderness, muscle weakness, range of motion, other (BUE/BLE ontractutes) Extremities: normal pulses Neurological: unresponsive Skin: other Results Results 24hrs Laboratory Tests Test 11/28/18 17:28 11/28/18 19:51 11/28/18 22:19 11/29/18 00:21 Bedside Glucose 110 162 155 White Blood Count 10.9 H Red Blood Count 3.50 #L Hemoglobin 8.9 L Hematocrit 30.4 #L Mean Corpuscular 86.9 Volume Mean Corpuscular 25.4 L Hemoglobin Mean Corpuscular 29.3 L Hemoglobin Concent Red Cell 17.4 H Distribution Width Platelet Count 241 Mean Platelet Volume 11.2 H Immature 1.700 H Granulocytes % Neutrophils % 79.0 H Lymphocytes % 11.9 L Monocytes % 3.1 Eosinophils % 4.1 Basophils % 0.2 Nucleated Red Blood 0.0 Cells % Immature 0.180 H Granulocytes # Neutrophils # 8.6 H Lymphocytes # 1.3 Monocytes # 0.3 Eosinophils # 0.5 Basophils # 0.0 Nucleated Red Blood 0.0 Cells # Sodium Level 147 H Potassium Level 3.4 L Chloride Level 119 H Carbon Dioxide Level 23 Anion Gap 5 Blood Urea Nitrogen 26 H Creatinine 0.46 Est Glomerular Filtrat Rate mL/min Glucose Level 109 # Calcium Level 8.3 L Test 11/29/18 04:30 11/29/18 05:56 11/29/18 08:02 11/29/18 13:09 White Blood Count 10.7 Red Blood Count 3.56 L Hemoglobin 9.3 L Hematocrit 30.8 L Mean Corpuscular 86.5 Volume Mean Corpuscular 26.1 L Hemoglobin Mean Corpuscular 30.2 L Hemoglobin Concent Red Cell 17.2 H Distribution Width Platelet Count 264 Mean Platelet Volume 11.5 H Immature 1.400 H Granulocytes % Neutrophils % 82.1 H Lymphocytes % 9.2 L Monocytes % 2.9 Eosinophils % 4.2 Basophils % 0.2 Nucleated Red Blood 0.0 Cells % Immature 0.150 H Granulocytes # Neutrophils # 8.8 H Lymphocytes # 1.0 Monocytes # 0.3 Eosinophils # 0.5 Basophils # 0.0 Nucleated Red Blood 0.0 Cells # Sodium Level 147 H Potassium Level 3.4 L Chloride Level 119 H Carbon Dioxide Level 23 Anion Gap 5 Blood Urea Nitrogen 25 H Creatinine 0.38 L Est Glomerular Filtrat Rate mL/min Glucose Level 134 Calcium Level 8.3 L Total Bilirubin 0.2 Direct Bilirubin 0.00 Indirect Bilirubin 0.2 Aspartate Amino 20 Transf (AST/SGOT) Alanine 35 Aminotransferase (AL T/SGPT) Alkaline Phosphatase 91 Total Protein 5.3 L Albumin 2.4 L Globulin 2.90 Albumin/Globulin 0.82 Ratio Bedside Glucose 136 142 134 Medications Medication Current Medications IV Flush (NS 10 ml) 10 ml Q8 IV Last administered on 11/29/18at 13:09; Admin Dose 10 ML; Start 11/26/18 at 22:00 Ascorbic Acid (Vitamin C) 500 mg DAILY GTB Last administered on 11/29/18at 08:04; Admin Dose 500 MG; Start 11/27/18 at 09:00 Baclofen (Lioresal) 20 mg TID GTB Last administered on 11/29/18at 13:05; Admin Dose 20 MG; Start 11/26/18 at 21:00 Cholecalciferol (Vitamin D) 2,000 unit DAILY GTB Last administered on 11/29/18at 08:04; Admin Dose 2,000 UNIT; Start 11/27/18 at 09:00 Cyanocobalamin (Vitamin B12) 1,000 mcg DAILY GTB Last administered on 11/29/18at 08:03; Admin Dose 1,000 MCG; Start 11/27/18 at 09:00 Miscellaneous Information 1 ea NOTE XX ; Start 11/26/18 at 18:30 Glucose (Glutose) 15 gm Q15M PRN PO DECREASED GLUCOSE; Start 11/26/18 at 18:30 Glucose (Glutose) 22.5 gm Q15M PRN PO DECREASED GLUCOSE; Start 11/26/18 at 18:30 Dextrose (D50w Syringe) 25 ml Q15M PRN IV DECREASED GLUCOSE; Start 11/26/18 at 18:30 Dextrose (D50w Syringe) 50 ml Q15M PRN IV DECREASED GLUCOSE; Start 11/26/18 at 18:30 Glucagon (Glucagen) 1 mg Q15M PRN IM DECREASED GLUCOSE; Start 11/26/18 at 18:30 Glucose (Glutose) 15 gm Q15M PRN BUCCAL DECREASED GLUCOSE; Start 11/26/18 at 18:30 Diagnostic Test (Pha) (Accu-Chek) 1 ea 02 XX Last administered on 11/29/18 02:11; Admin Dose 1 EA; Start 11/27/18 at 02:00 Insulin Aspart (Novolog Insulin Pen) NOVOLOG *MILD* ALGORI... Q4 SC Last administered on 11/29/18 08:10; Admin Dose 1 UNIT; Start 11/27/18 at 00:00 Collagenase (Santyl) 1 applic PRN PRN TOP .WOUND; Start 11/27/18 at 09:00 Dextrose/Sodium Chloride 1,000 ml @ 70 mls/hr [id number] IV Last administered on 11/29/18 08:05; Admin Dose 70 MLS/HR; Start 11/27/18 at 12:30 Sodium Hypochlorite (Dakins Diluted (/40)) 1 applic BID TP Last administered on 11/29/18 08:06; Admin Dose 1 APPLIC; Start 11/27/18 at 21:00 Lorazepam (Ativan) 1 mg Q2H PRN IV SEIZURES Last administered on 11/29/18 14:39; Admin Dose 1 MG; Start 11/27/18 at 18:00 Meropenem/Sodium Chloride 50 ml @ 100 mls/hr Q8 IVPB Last administered on 11/29/18 13:05; Admin Dose 100 MLS/HR; Start 11/28/18 at 10:00 Aspirin (Aspirin) 81 mg DAILY GTB Last administered on 11/29/18 10:08; Admin Dose 81 MG; Start 11/29/18 at 10:00 Levetiracetam 100 ml @ 400 mls/hr Q12 IVPB ; Start 11/29/18 at 21:00 NADEEN CHO Nov 29, 2018 17:03
[2018-11-30] VITALS (9 sets, daily range): BP systolic 103–118; BP diastolic 54–59; PULSE 69–83; RESP 17–22
[2018-11-30] MEDS: LEVETIRACETAM 1000 MG (PMX) 100 ML IVPB SCH ×3 (00:09→21:07)
[2018-11-30] MEDS: INSULIN ASPART [NOVOLOG] 3 ML PEN SC SCH ×6 (01:00→21:00)
[2018-11-30] MEDS: ACCU-CHEK XX SCH (01:54)
[2018-11-30] MEDS: MEROPENEM 1 GM/50ML(PMX) 50 ML IVPB SCH ×3 (05:02→21:07)
--- NOTE | 2018-11-30 07:16 | EEG ---
EEG NOTE Report Details DATE OF TEST: 11/29/18 HISTORY: The patient is a 73-year-old F who presents with altered mental status and face and arm twitching. This EEG is requested to evaluate for seizures. SEDATION: None. CONDITIONS OF RECORDING: This EEG was recorded digitally on the [email or web address] machine, using the International 10-20 System of electrodes plus anterior temporals and [place]. STATES SAMPLED: Lethargic. FINDINGS: The background is continuous and symmetric...predominated by polymorphic delta activity. The normal [id number] frequency-amplitude gradient was absent. Photic stimulation does not elicit any definite driving responses or epileptiform discharges. Hyperventilation was not performed. No asymmetries, focal abnormalities or epileptiform discharges were seen. IMPRESSION: Abnormal electroencephalogram due to: severe diffuse slowing. COMMENT: The slowing of the background indicates severe, diffuse cortical dysfunction of nonspecific etiology. JOHN PARK Nov 30, 2018 07:16
--- NOTE | 2018-11-30 08:43 | CONS ---
Assessment/Plan Assessment/Plan Hospital Course 73 yo F with PSP and multiple other comorbidities who is admitted to the [facility] ICU for management of presumed septic shock. On 11/27, she was noted to have new onset seizures... for which neurology is consulted. On 11/29, she was noted to have a recurrence of the same.. The clinical picture could be consistent with epilepsy... Meningoencephalitis is less likely.. MRI brain is reassuringly negative for acute intracranial pathology...though notable for volume loss/ventriculomegaly. EEG was without epileptiform activity.. P: Cont Keppra maintenance 1g BID for now Ativan IV PRN prolonged seizure >5 min or for cluster Other medical management per primary Will follow clinically Consultation Date/Type/Reason Admit Date/Time Nov 26, 2018 at 20:42 Type of Consult Neurology Requesting Provider: NADEEN CHO Date/Time of Note DATE: 11/30/18 TIME: 08:42 24 HR Interval Summary Free Text/Dictation Continues acute care. Subjective hx not possible: pt non-verbal Exam Vital Signs Vitals Vital Signs Date Temp Pulse Resp B/P (MAP) Pulse Ox O2 O2 Flow FiO2 Time Delivery Rate 11/30/18 98.0 76 22 103/54 07:54 (70) 11/30/18 5.0 28 04:50 11/30/18 98 04:00 11/29/18 Trach 19:07 Collar Intake and Output 11/29/18 11/29/18 11/30/18 1515:00 23:00 07:00 IntakeIntake Total 2100 ml 520 ml 950 ml OutputOutput Total 305 ml 135 ml 500 ml BalanceBalance 1795 ml 385 ml 450 ml Exam PE: Gen Appearance: No Apparent Distress HEENT: Trach; on t-bar Cardiovascular: Regular rate Abdomen: Soft; PEG Extremities: Dry; BL wrists contracted NE: The patient was obtunded and nonverbal. Opens eyes to noxious stimuli. Does not track or follow any commands. Cranial nerve examination was limited by mental status. Pupils were equal and reactive to light. There was no afferent pupillary defect. Funduscopic examination was limited. Face was grossly symmetric, w/ present corneal and cough reflexes. Tone was spastic in the UE. Muscle bulk was diminished. I did not see fasciculations. The patient withdrew to noxious stimulation x 4. Coordination and gait testing was limited by mental status. Arm and leg reflexes were within normal limits and symmetric. Garza's sign was absent. Plantar responses were flexor. TINO PRINCE NP Nov 30, 2018 08:43
[2018-11-30] MEDS ORDERED: ASPIRIN 81 MG TAB GTB SCH (09:00)
[2018-11-30] MEDS: CYANOCOBALAMIN 500 MCG TAB GTB SCH (09:40)
[2018-11-30] MEDS: ASPIRIN 81 MG TAB GTB SCH (09:40)
[2018-11-30] MEDS: ASCORBIC ACID 500 MG TAB GTB SCH (09:40)
[2018-11-30] MEDS: CHOLECALCIFEROL 2,000 UNIT CAP GTB SCH (09:40)
[2018-11-30] MEDS: BACLOFEN 10 MG TAB GTB SCH ×3 (09:40→21:06)
[2018-11-30] MEDS: DAKINS 0.0125%(1/40) 473 ML SOLUTION TP SCH ×2 (09:41→21:07)
[2018-11-30] MEDS: BALSAM PERU/CASTOR OIL 60 GM TUBE TOP SCH (09:41)
--- NOTE | 2018-11-30 10:22 | CONS ---
Consult Date/Type/Reason Admit Date/Time Nov 26, 2018 at 20:42 Initial Consult Date 11/27/18 Requesting Provider: NADEEN CHO Date/Time of Note DATE: 11/30/18 TIME: 10:20 Subjective NO acute events -p t comfortable - in good fluid status - in sinus now ROS: No fever, no chills, no nausea, no vomiting, no diarrhea/constipation - per nurse Chronic SOB Objective Vitals Vital Signs Date Temp Pulse Resp B/P (MAP) Pulse Ox O2 O2 Flow FiO2 Time Delivery Rate 11/30/18 78 08:00 11/30/18 98.0 22 103/54 07:54 (70) 11/30/18 5.0 28 04:50 11/30/18 98 04:00 11/29/18 Trach 19:07 Collar Intake and Output 11/29/18 11/29/18 11/30/18 1515:00 23:00 07:00 IntakeIntake Total 2100 ml 520 ml 950 ml OutputOutput Total 305 ml 135 ml 500 ml BalanceBalance 1795 ml 385 ml 450 ml Exam General: WN/WD/NAD, AOx 0 HEENT: Unicetric/atraumatic/EOMI (does not follow commands) NECK: trach Lymph: no lymphadenopathy HEART: regular with no S3, II/ systolic murmur at apex LUNGS: Coarse sounds ABD: soft, NT, ND, +BS : Intact Neuro: contraction SKIN: chronic changes EXT: trace edema Results/Medications Result Diagram: 11/29/18 0430 11/29/18 0430 Results 24 hrs Laboratory Tests Test 11/29/18 13:09 11/29/18 17:31 11/29/18 21:58 11/30/18 01:46 Bedside Glucose 134 123 111 137 Test 11/30/18 05:03 11/30/18 08:33 Bedside Glucose 196 134 Home Meds Reported Medications Ondansetron Hcl* (Ondansetron Hcl*) 4 Mg Tablet, 4 MG PO Q6H PRN for n/v, TAB 11/26/18 Ascorbic Acid* (Vitamin C*) 500 Mg Capsule.sa, 500 MG GTB DAILY, CAP 11/26/18 Acetaminophen* (Acetaminophen*) 325 Mg Tablet, 650 MG GTB Q4H PRN for PAIN AND OR ELEVATED TEMP, #30 TAB 11/26/18 Sertraline Hcl* (Sertraline Hcl*) 50 Mg Tablet, 50 MG GTB DAILY, #30 TAB 11/26/18 Protein Supplement (Promod) 946 Ml Liquid, 30 ML GTB for supplement 11/26/18 Lansoprazole* (Lansoprazole*) 30 Mg Capsule.dr, 30 MG GTB BID, CAP 11/26/18 Hydrocodone/Acetaminophen (White 5-325 Tablet) 1 Each Tablet, 1 EACH GTB Q4H PRN for PAIN, TAB 11/26/18 Polyethylene Glycol* (Miralax*) 17 Gm Powd.pack, 17 GM GTB BID, #60 PACKET 11/26/18 Metoprolol Tartrate* (Lopressor*) 25 Mg Tab, 25 MG GTB BID, #60 TAB 11/26/18 Lisinopril* (Lisinopril*) 5 Mg Tablet, 5 MG GTB DAILY, #30 TAB 11/26/18 Insulin Aspart* (Novolog Insulin Pen*) 100 Unit/Ml Soln, 0 SC .SLIDING SCALE AC, EA INJECT PER SLIDING SCALE; IF 70-150=0unit; 151-200= 2units; 201-250=4units; 251-300=6units; 301-350=8units; 351-400=10units and Call MD, Subcutaneously before meals and at bedtime fo DM. 11/26/18 Insulin Glargine* (Lantus*) 100 Unit/Ml Soln, 5 UNIT SC QHS, #1 VIAL [id number] SQ AT BEDTIME FOR TYPE 2DIABETES MELLITUS WITHOUT COMPLICATIONS 11/26/18 Levetiracetam* (Keppra*) 500 Mg/5 Ml Solution, 100 MG GTB BID for SEIZURE for 30 Days, BOTTLE 11/26/18 Ipratropium-Albuterol (Ipratropium-Albuterol) 0.5-3 Mg/3 Ml Ampul.neb, 3 ML INHALATION Q6, #30 VIAL 11/26/18 Ferrous Sulfate* (Ferrous Sulfate*) 220 Mg/5 Ml Solution, 330 MG PO BID, ML 11/26/18 Epoetin Haroon (Epogen) 10,000 Units/Ml Soln, 62303 UNITS SC QWED for ANEMIA, VIAL 11/26/18 Cyanocobalamin* (Vitamin B-12*) 1,000 Mcg Tablet.sa, 1000 MCG GTB DAILY, TAB 11/26/18 Clonazepam* (Clonazepam*) 0.5 Mg Tablet, 0.5 MG GTB BID, TAB 11/26/18 Cholecalciferol (Vitamin D3) (VITAMIN D-3) 2,000 Unit Capsule, 2000 UNIT GTB DAILY, CAP 11/26/18 Baclofen* (Baclofen*) 10 Mg Tablet, 20 MG GTB TID for MUSCLE SPASM, TAB 11/26/18 Aspirin* (Aspirin* EC) 81 Mg Tablet.dr, 81 MG GTB DAILY, TAB 11/26/18 Amiodarone Hcl* (Amiodarone Hcl*) 200 Mg Tablet, 200 MG GTB BID for ARRHYTMIA, #60 TAB 11/26/18 Zolpidem Tartrate* (Zolpidem Tartrate*) 5 Mg Tablet, 5 MG GTB QHS PRN for INSOMNIA, #30 TAB 11/26/18 Acidophilus-Bulgaricus* (BD Lactinex*) 1 Pkt Packet, 1 PKT GTB BID, PACKET 11/26/18 Zinc Sulfate* (Zinc Sulfate*) 220 Mg Tablet, 220 MG GTB DAILY for 30 Days, #30 TAKE 1 CAPSULE VIA G-TUBE EVERY DAY 11/26/18 Estrogens Conjugated* (Premarin*) 0.45 Mg Tablet, 1.5 MG PO DAILY 02/18/13 Discontinued Reported Medications [Tramadol] No Conflict Check 06/26/13 [Oxybutynin] No Conflict Check 02/18/13 [Furosemide] No Conflict Check 02/18/13 [Atorvastatin] No Conflict Check 02/18/13 [Lorazepam] No Conflict Check 02/18/13 Medications Current Medications IV Flush (NS 10 ml) 10 ml Q8 IV Last administered on 11/30/18at 05:02; Admin Dose 10 ML; Start 11/26/18 at 22:00 Ascorbic Acid (Vitamin C) 500 mg DAILY GTB Last administered on 11/30/18at 09:40; Admin Dose 500 MG; Start 11/27/18 at 09:00 Baclofen (Lioresal) 20 mg TID GTB Last administered on 11/30/18at 09:40; Admin Dose 20 MG; Start 11/26/18 at 21:00 Cholecalciferol (Vitamin D) 2,000 unit DAILY GTB Last administered on 11/30/18 09:40; Admin Dose 2,000 UNIT; Start 11/27/18 at 09:00 Cyanocobalamin (Vitamin B12) 1,000 mcg DAILY GTB Last administered on 11/30/18at 09:40; Admin Dose 1,000 MCG; Start 11/27/18 at 09:00 Miscellaneous Information 1 ea NOTE XX ; Start 11/26/18 at 18:30 Glucose (Glutose) 15 gm Q15M PRN PO DECREASED GLUCOSE; Start 11/26/18 at 18:30 Glucose (Glutose) 22.5 gm Q15M PRN PO DECREASED GLUCOSE; Start 11/26/18 at 18:30 Dextrose (D50w Syringe) 25 ml Q15M PRN IV DECREASED GLUCOSE; Start 11/26/18 at 18:30 Dextrose (D50w Syringe) 50 ml Q15M PRN IV DECREASED GLUCOSE; Start 11/26/18 at 18:30 Glucagon (Glucagen) 1 mg Q15M PRN IM DECREASED GLUCOSE; Start 11/26/18 at 18:30 Glucose (Glutose) 15 gm Q15M PRN BUCCAL DECREASED GLUCOSE; Start 11/26/18 at 18:30 Diagnostic Test (Pha) (Accu-Chek) 1 ea 02 XX Last administered on 11/29/18at 02:11; Admin Dose 1 EA; Start 11/27/18 at 02:00 Insulin Aspart (Novolog Insulin Pen) NOVOLOG *MILD* ALGORI... Q4 SC Last administered on 11/30/18 05:11; Admin Dose 2 UNIT; Start 11/27/18 at 00:00 Collagenase (Santyl) 1 applic PRN PRN TOP .WOUND; Start 11/27/18 at 09:00 Dextrose/Sodium Chloride 1,000 ml @ 70 mls/hr [id number] IV Last administered on 11/29/18at 22:02; Admin Dose 70 MLS/HR; Start 11/27/18 at 12:30 Sodium Hypochlorite (Dakins Diluted ()) 1 applic BID TP Last administered on 11/30/18 09:41; Admin Dose 1 APPLIC; Start 11/27/18 at 21:00 Lorazepam (Ativan) 1 mg Q2H PRN IV SEIZURES Last administered on 11/29/18at 14:39; Admin Dose 1 MG; Start 11/27/18 at 18:00 Meropenem/Sodium Chloride 50 ml @ 100 mls/hr Q8 IVPB Last administered on 11/30/18at 05:02; Admin Dose 100 MLS/HR; Start 11/28/18 at 10:00 Aspirin (Aspirin) 81 mg DAILY GTB Last administered on 11/30/18at 09:40; Admin Dose 81 MG; Start 11/29/18 at 10:00 Levetiracetam 100 ml @ 400 mls/hr Q12 IVPB Last administered on 11/30/18at 09:46; Admin Dose 400 MLS/HR; Start 11/29/18 at 21:00 Assessment/Plan Hospital Course (Demo Recall) 1. Atrial fibrillation/atrial flutter with rapid ventricular response - now in SR - treated - will follow. 2. Hypotension/shock state, likely septic - better now. . 3. History of cardiomyopathy with mildly depressed left ventricular ejection fraction approximately 40% to 45%. Keep euvolemic. 4. History of congestive heart failure, systolic, chronic. 5. Possible pneumonia - on meds, con't anti-bx. 6. Sepsis. 7. Leukocytosis. 8. Anemia requiring transfusions. 9. Hypernatremia. 10. Coagulopathy. 11. Urinary tract infection. ZAHIRA RAJAN MD Nov 30, 2018 10:22
--- NOTE | 2018-11-30 12:35 | CONS ---
Assessment/Plan Assessment/Plan Hospital Course (Demo Recall) # sepsis, endovascular infection, respiratory - s/p septic shock due to UTI - coag negative Staph in blood cultures on 11/26/2018, probable contaminant - colonization of the airway by pseudomonas and corynebacteria - h/o sepsis due to bacteremia and pneumonia - h/o bacteremia: blood cultures grew enterococcus faecalis on 09/17/2018 secondary to R hip wound infection as its wound culture on 09/16/2018 grew E. faecalis as well - h/o recurrent acute on chronic hypoxemic respiratory failure secondary to secretion retention, mucous plugging, major left lung atelectasis, severe shunting - h/o probable aspiration pneumonia. - h/o pneumonia due to pseudomonas on 09/30/2018. s/p Levaquin (10/03/18-), Meropenem (restart 09/30/2018-10/03/18, 10/12/18 - 10/19/2018) and empiric Amikacin (09/30/18-10/03/18) - H/o intubation on 09/30/2018 - H/o tracheostomy on 10/04/2018 - h/o pseudomonas in urine culture on 09/17/2018 with mild pyuria; treated with Cefepime (09/20/2018-09/25/2018) # infection of wound, OM of R hip - colonization of the wound of R hip by pseudomonas (wound culture on 10/31/2018), acinetobacter (wound culture on 11/27/2018) - h/o repeat debridement at [facility] on 11/03/[address]. [address] Pierson, the wound appeared clean during the I&D (my conversation with him on 11/06/2018) - H/o stage sacral decubitus ulcer extending to bilateral buttocks. She reportedly had total hip dislocation and exposed femoral head. CT pelvis showed e/o OM. Pt complete IV vancomycin (09/17/2018-10/29/2018) for sacral OM associated with E. faecalis - H/o sharp excisional debridement down to and including bone of the sacrum on 08/22/2018 and 09/19/2018 - H/o excision of R hip ulcer, girdlestone resection arthroplasty and flap reconstruction 09/23/2018. The surgical pathology showed osteomyelitis of R hip bone, soft tissue cellulitis, and bony margin of excision was free of the disease - XR of R hip on 11/09/2009 showed the remaining R femoral shaft in transverse orientation and with lateral deviation - h/o removal of devitalized/necrotic tissue by Dr. Pierson on 10/07/2018 # renal/ - probable UTI (hematuria on 11/26/2018) due to MDR Acinetobacter - H/o moderate L hydronephrosis per renal US - funguria, recurrent # heme/neuro - H/o acute on chronic anemia requiring PRBC - Metabolic encephalopathy - Supranuclear palsy # endo, cardiac - Diabetes Mellitus - A fib with RVR - Chronic diastolic HF (EF 40-45% with grade 1 DD per 2D Echo 10/24/2018) - H/o hypertension # allergy - Penicillin allergy (throat swelling) but Pt tolerates cefepime , ceftazidime, meropenem - Resulted: [id number] <31 Recommendations: - continue meropenem (11/28/2018-), plan for 3-5 days; s/p IV ciprofloxacin - according to Dr. Pierson who performed the wound debridement, Pt needs wou nd care until granulation tissue builds and infection is cleared. Then he would decide if Pt should get repeat closure or not Management d/w JAY Perez and with Dr. Breaux Consultation Date/Type/Reason Admit Date/Time Nov 26, 2018 at 20:42 Initial Consult Date 11/27/18 Type of Consult Infectious Disease Requesting Provider: NADEEN CHO Date/Time of Note DATE: 11/30/18 TIME: 12:23 24 HR Interval Summary Free Text/Dictation Remains afebrile and leukocytosis has resolved. Subjective hx not possible: pt non-verbal Exam/Review of Systems Exam Vitals Vital Signs Date Temp Pulse Resp B/P (MAP) Pulse Ox O2 O2 Flow FiO2 Time Delivery Rate 11/30/18 97.6 83 22 107/59 96 Room Air 11:43 (75) 11/30/18 5.0 28 04:50 Intake and Output 11/29/18 11/29/18 11/30/18 1515:00 23:00 07:00 IntakeIntake Total 2100 ml 520 ml 950 ml OutputOutput Total 305 ml 135 ml 500 ml BalanceBalance 1795 ml 385 ml 450 ml Exam Constitutional: well developed, non-verbal, frail, other (chronically debilitated) Psych: other (unable to assess) Head: normocephalic, atraumatic Eyes: nl conjunctiva, nl lids ENMT: nl external ears & nose, nl nasal mucosa & septum, other (Limited exam of OP - MM pink and dry) Neck: other (trach with T-piece) Respiratory: diminished breath sounds (faint upper airway coarse breath sounds) Cardiovascular: regular rate and rhythm, nl pulses Gastrointestinal: soft, non-tender, other (G-tube clamped) Genitourinary - Female: other (+Ramires) Musculoskeletal: other (large wound on R hip with exposed femur) Extremities: normal pulses, other (contractures to all 4 extremities); No edema Neurological: unresponsive (obtunded) Skin: other (blanching erythema of bilateral upper thighs is resolving with residual erythema on R thigh; photos of wounds and nurses notes reviewed) Results Result Diagram: 11/29/18 0430 11/29/18 0430 Results 24hrs Laboratory Tests Test 11/29/18 13:09 11/29/18 17:31 11/29/18 21:58 11/30/18 01:46 Bedside Glucose 134 123 111 137 Test 11/30/18 05:03 11/30/18 08:33 Bedside Glucose 196 134 Medications Medication Current Medications IV Flush (NS 10 ml) 10 ml Q8 IV Last administered on 11/30/18at 05:02; Admin Dose 10 ML; Start 11/26/18 at 22:00 Ascorbic Acid (Vitamin C) 500 mg DAILY GTB Last administered on 11/30/18 09:40; Admin Dose 500 MG; Start 11/27/18 at 09:00 Baclofen (Lioresal) 20 mg TID GTB Last administered on 11/30/18 09:40; Admin Dose 20 MG; Start 11/26/18 at 21:00 Cholecalciferol (Vitamin D) 2,000 unit DAILY GTB Last administered on 11/30/18 09:40; Admin Dose 2,000 UNIT; Start 11/27/18 at 09:00 Cyanocobalamin (Vitamin B12) 1,000 mcg DAILY GTB Last administered on 11/30/18 09:40; Admin Dose 1,000 MCG; Start 11/27/18 at 09:00 Miscellaneous Information 1 ea NOTE XX ; Start 11/26/18 at 18:30 Glucose (Glutose) 15 gm Q15M PRN PO DECREASED GLUCOSE; Start 11/26/18 at 18:30 Glucose (Glutose) 22.5 gm Q15M PRN PO DECREASED GLUCOSE; Start 11/26/18 at 18:30 Dextrose (D50w Syringe) 25 ml Q15M PRN IV DECREASED GLUCOSE; Start 11/26/18 at 18:30 Dextrose (D50w Syringe) 50 ml Q15M PRN IV DECREASED GLUCOSE; Start 11/26/18 at 18:30 Glucagon (Glucagen) 1 mg Q15M PRN IM DECREASED GLUCOSE; Start 11/26/18 at 18:30 Glucose (Glutose) 15 gm Q15M PRN BUCCAL DECREASED GLUCOSE; Start 11/26/18 at 18:30 Diagnostic Test (Pha) (Accu-Chek) 1 ea 02 XX Last administered on 11/29/18at 02:11; Admin Dose 1 EA; Start 11/27/18 at 02:00 Insulin Aspart (Novolog Insulin Pen) NOVOLOG *MILD* ALGORI... Q4 SC Last administered on 11/30/18 05:11; Admin Dose 2 UNIT; Start 11/27/18 at 00:00 Collagenase (Santyl) 1 applic PRN PRN TOP .WOUND; Start 11/27/18 at 09:00 Dextrose/Sodium Chloride 1,000 ml @ 70 mls/hr [id number] IV Last administered on 11/29/18at 22:02; Admin Dose 70 MLS/HR; Start 11/27/18 at 12:30 Sodium Hypochlorite (Dakins Diluted ()) 1 applic BID TP Last administered on 11/30/18 09:41; Admin Dose 1 APPLIC; Start 11/27/18 at 21:00 Lorazepam (Ativan) 1 mg Q2H PRN IV SEIZURES Last administered on 11/29/18 14:39; Admin Dose 1 MG; Start 11/27/18 at 18:00 Meropenem/Sodium Chloride 50 ml @ 100 mls/hr Q8 IVPB Last administered on 11/30/18 05:02; Admin Dose 100 MLS/HR; Start 11/28/18 at 10:00 Aspirin (Aspirin) 81 mg DAILY GTB Last administered on 4/27/19at 09:40; Admin Dose 81 MG; Start 11/29/18 at 10:00 Levetiracetam 100 ml @ 400 mls/hr Q12 IVPB Last administered on 11/30/18 09:46; Admin Dose 400 MLS/HR; Start 11/29/18 at 21:00 CONOR CHAND NP Nov 30, 2018 12:34
[2018-11-30] MEDS: DEXTROSE 5%-0.45% NACL 1,000 ML IV SCH (13:27)
--- NOTE | 2018-11-30 14:10 | PN ---
Date/Time of Note Date/Time of Note DATE: 11/30/18 TIME: 14:10 Assessment/Plan VTE Prophylaxis Risk score (from [facility])>0 risk: 8 SCD applied (from [facility]): No SCD contraindicated: other Pharmacological prophylaxis: other Pharm contraindication: other Lines/Catheters IV Catheter Type (from [facility] Saline Lock Urinary Cath still in place: Yes Reason Cath still needed: urinary retention Assessment/Plan Assessment/Plan - SEPSIS -per ID - Hypernatremia - monitor BMP - If no improvement; will get nephrology consult -Atrial fibrillation/ flutter with rapid ventricular response. Patient is currently in sinus rhythm. - Continue amiodarone. Dr. Monson is following in cardiology consultation. -Progressive supranuclear palsy -Respiratory failure with tracheostomy patient is currently on cool aerosol mist. -Chronic encephalopathy -Decubitus ulcer of the right hip and sacrum, status post Girdlestone procedure of the right hip with flap in September 2018, followed by removal of necrotic tissue by Dr. Triplett at [facility]. 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 - surgery follows -Wound dehiscence, s/p repeat debridement at [facility] on 11/03/2018. -Diabetes - GLYCEMIC control -Chronic diastolic CHF -Dysphagia with GT - aspiration precautions -Anemia of chronic disease Further recommendations based on clinical course. Plan of care discussed with Dr. Shannon. DW staff Result Diagram: 11/29/18 0430 11/29/18 0430 Results 24hrs Laboratory Tests Test 11/29/18 17:31 11/29/18 21:58 11/30/18 01:46 11/30/18 05:03 Bedside Glucose 123 111 137 196 Test 11/30/18 08:33 11/30/18 13:28 Bedside Glucose 134 124 Subjective 24 Hr Interval Summary Free Text/Dictation - NAD remains on supplemental oxygen sx follows no new events reported last night dw staff Subjective hx not possible: pt non-verbal, pt critical status Constitutional: requiring O2 Exam/Review of Systems Exam Vitals Vital Signs Date Temp Pulse Resp B/P (MAP) Pulse Ox O2 O2 Flow FiO2 Time Delivery Rate 11/30/18 97.6 83 22 107/59 96 Room Air 11:43 (75) 11/30/18 5.0 28 04:50 Intake and Output 11/29/18 11/29/18 11/30/18 1515:00 23:00 07:00 IntakeIntake Total 2100 ml 520 ml 950 ml OutputOutput Total 305 ml 135 ml 500 ml BalanceBalance 1795 ml 385 ml 450 ml Constitutional: non-verbal, frail Results Results 24hrs Laboratory Tests Test 11/29/18 17:31 11/29/18 21:58 11/30/18 01:46 11/30/18 05:03 Bedside Glucose 123 111 137 196 Test 11/30/18 08:33 11/30/18 13:28 Bedside Glucose 134 124 Medications Medication Current Medications IV Flush (NS 10 ml) 10 ml Q8 IV Last administered on 11/30/18at 13:26; Admin Dose 10 ML; Start 11/26/18 at 22:00 Ascorbic Acid (Vitamin C) 500 mg DAILY GTB Last administered on 11/30/18 09:40; Admin Dose 500 MG; Start 11/27/18 at 09:00 Baclofen (Lioresal) 20 mg TID GTB Last administered on 11/30/18at 13:26; Admin Dose 20 MG; Start 11/26/18 at 21:00 Cholecalciferol (Vitamin D) 2,000 unit DAILY GTB Last administered on 11/30/18at 09:40; Admin Dose 2,000 UNIT; Start 11/27/18 at 09:00 Cyanocobalamin (Vitamin B12) 1,000 mcg DAILY GTB Last administered on 11/30/18at 09:40; Admin Dose 1,000 MCG; Start 11/27/18 at 09:00 Miscellaneous Information 1 ea NOTE XX ; Start 11/26/18 at 18:30 Glucose (Glutose) 15 gm Q15M PRN PO DECREASED GLUCOSE; Start 11/26/18 at 18:30 Glucose (Glutose) 22.5 gm Q15M PRN PO DECREASED GLUCOSE; Start 11/26/18 at 18:30 Dextrose (D50w Syringe) 25 ml Q15M PRN IV DECREASED GLUCOSE; Start 11/26/18 at 18:30 Dextrose (D50w Syringe) 50 ml Q15M PRN IV DECREASED GLUCOSE; Start 11/26/18 at 18:30 Glucagon (Glucagen) 1 mg Q15M PRN IM DECREASED GLUCOSE; Start 11/26/18 at 18:30 Glucose (Glutose) 15 gm Q15M PRN BUCCAL DECREASED GLUCOSE; Start 11/26/18 at 18:30 Diagnostic Test (Pha) (Accu-Chek) 1 ea 02 XX Last administered on 11/29/18 02:11; Admin Dose 1 EA; Start 11/27/18 at 02:00 Insulin Aspart (Novolog Insulin Pen) NOVOLOG *MILD* ALGORI... Q4 SC Last administered on 11/30/18 05:11; Admin Dose 2 UNIT; Start 11/27/18 at 00:00 Collagenase (Santyl) 1 applic PRN PRN TOP .WOUND; Start 11/27/18 at 09:00 Dextrose/Sodium Chloride 1,000 ml @ 70 mls/hr [id number] IV Last administered on 11/30/18 13:27; Admin Dose 70 MLS/HR; Start 11/27/18 at 12:30 Sodium Hypochlorite (Dakins Diluted ()) 1 applic BID TP Last administered on 11/30/18 09:41; Admin Dose 1 APPLIC; Start 11/27/18 at 21:00 Lorazepam (Ativan) 1 mg Q2H PRN IV SEIZURES Last administered on 11/29/18 14:39; Admin Dose 1 MG; Start 11/27/18 at 18:00 Meropenem/Sodium Chloride 50 ml @ 100 mls/hr Q8 IVPB Last administered on 11/30/18 13:26; Admin Dose 100 MLS/HR; Start 11/28/18 at 10:00 Aspirin (Aspirin) 81 mg DAILY GTB Last administered on 11/30/18 09:40; Admin Dose 81 MG; Start 11/29/18 at 10:00 Levetiracetam 100 ml @ 400 mls/hr Q12 IVPB Last administered on 11/30/18 09:46; Admin Dose 400 MLS/HR; Start 11/29/18 at 21:00 NADEEN CHO Nov 30, 2018 14:10
--- NOTE | 2018-11-30 22:14 | CONS ---
Consult Date/Type/Reason Admit Date/Time Nov 26, 2018 at 20:42 Initial Consult Date 11/27/18 Type of Consultation: Pulm Requesting Provider: NADEEN CHO Date/Time of Note DATE: 11/30/18 TIME: 22:12 Subjective No overnight events. Objective Vitals Vital Signs Date Temp Pulse Resp B/P (MAP) Pulse Ox O2 O2 Flow FiO2 Time Delivery Rate 11/30/18 98.2 71 17 118/58 100 20:42 (78) 11/30/18 5.0 28 20:18 11/30/18 Aerosol 20:14 T Tube Intake and Output 11/29/18 11/29/18 11/30/18 1515:00 23:00 07:00 IntakeIntake Total 2100 ml 520 ml 950 ml OutputOutput Total 305 ml 135 ml 500 ml BalanceBalance 1795 ml 385 ml 450 ml Exam HEENT: Neck supple; no JVD; no LAD: + trach CVS: Irreg irreg, S1 and S2 CHEST: Coarse BS ABD: Soft, NT, + BS EXT: No c/c; contracted; edema Results/Medications Result Diagram: 11/29/18 0430 11/29/18 0430 Results 24 hrs Laboratory Tests Test 11/30/18 01:46 11/30/18 05:03 11/30/18 08:33 11/30/18 13:28 Bedside Glucose 137 196 134 124 Test 11/30/18 17:26 11/30/18 21:03 Bedside Glucose 124 126 Home Meds Reported Medications Ondansetron Hcl* (Ondansetron Hcl*) 4 Mg Tablet, 4 MG PO Q6H PRN for n/v, TAB 11/26/18 Ascorbic Acid* (Vitamin C*) 500 Mg Capsule.sa, 500 MG GTB DAILY, CAP 11/26/18 Acetaminophen* (Acetaminophen*) 325 Mg Tablet, 650 MG GTB Q4H PRN for PAIN AND OR ELEVATED TEMP, #30 TAB 11/26/18 Sertraline Hcl* (Sertraline Hcl*) 50 Mg Tablet, 50 MG GTB DAILY, #30 TAB 11/26/18 Protein Supplement (Promod) 946 Ml Liquid, 30 ML GTB for supplement 11/26/18 Lansoprazole* (Lansoprazole*) 30 Mg Capsule.dr, 30 MG GTB BID, CAP 11/26/18 Hydrocodone/Acetaminophen ([place] 5-325 Tablet) 1 Each Tablet, 1 EACH GTB Q4H PRN for PAIN, TAB 11/26/18 Polyethylene Glycol* (Miralax*) 17 Gm Powd.pack, 17 GM GTB BID, #60 PACKET 11/26/18 Metoprolol Tartrate* (Lopressor*) 25 Mg Tab, 25 MG GTB BID, #60 TAB 11/26/18 Lisinopril* (Lisinopril*) 5 Mg Tablet, 5 MG GTB DAILY, #30 TAB 11/26/18 Insulin Aspart* (Novolog Insulin Pen*) 100 Unit/Ml Soln, 0 SC .SLIDING SCALE AC, EA INJECT PER SLIDING SCALE; IF 70-150=0unit; 151-200= 2units; 201-250=4units; 251-300=6units; 301-350=8units; 351-400=10units and Call MD, Subcutaneously before meals and at bedtime fo DM. 11/26/18 Insulin Glargine* (Lantus*) 100 Unit/Ml Soln, 5 UNIT SC QHS, #1 VIAL [id number] SQ AT BEDTIME FOR TYPE 2DIABETES MELLITUS WITHOUT COMPLICATIONS 11/26/18 Levetiracetam* (Keppra*) 500 Mg/5 Ml Solution, 100 MG GTB BID for SEIZURE for 30 Days, BOTTLE 11/26/18 Ipratropium-Albuterol (Ipratropium-Albuterol) 0.5-3 Mg/3 Ml Ampul.neb, 3 ML INHALATION Q6, #30 VIAL 11/26/18 Ferrous Sulfate* (Ferrous Sulfate*) 220 Mg/5 Ml Solution, 330 MG PO BID, ML 11/26/18 Epoetin Haroon (Epogen) 10,000 Units/Ml Soln, 21754 UNITS SC QWED for ANEMIA, VIAL 11/26/18 Cyanocobalamin* (Vitamin B-12*) 1,000 Mcg Tablet.sa, 1000 MCG GTB DAILY, TAB 11/26/18 Clonazepam* (Clonazepam*) 0.5 Mg Tablet, 0.5 MG GTB BID, TAB 11/26/18 Cholecalciferol (Vitamin D3) (VITAMIN D-3) 2,000 Unit Capsule, 2000 UNIT GTB DAILY, CAP 11/26/18 Baclofen* (Baclofen*) 10 Mg Tablet, 20 MG GTB TID for MUSCLE SPASM, TAB 11/26/18 Aspirin* (Aspirin* EC) 81 Mg Tablet.dr, 81 MG GTB DAILY, TAB 11/26/18 Amiodarone Hcl* (Amiodarone Hcl*) 200 Mg Tablet, 200 MG GTB BID for ARRHYTMIA, #60 TAB 11/26/18 Zolpidem Tartrate* (Zolpidem Tartrate*) 5 Mg Tablet, 5 MG GTB QHS PRN for INSOMNIA, #30 TAB 11/26/18 Acidophilus-Bulgaricus* (BD Lactinex*) 1 Pkt Packet, 1 PKT GTB BID, PACKET 11/26/18 Zinc Sulfate* (Zinc Sulfate*) 220 Mg Tablet, 220 MG GTB DAILY for 30 Days, #30 TAKE 1 CAPSULE VIA G-TUBE EVERY DAY 11/26/18 Estrogens Conjugated* (Premarin*) 0.45 Mg Tablet, 1.5 MG PO DAILY 02/18/13 Discontinued Reported Medications [Tramadol] No Conflict Check 06/26/13 [Oxybutynin] No Conflict Check 02/18/13 [Furosemide] No Conflict Check 02/18/13 [Atorvastatin] No Conflict Check 02/18/13 [Lorazepam] No Conflict Check 02/18/13 Medications Current Medications IV Flush (NS 10 ml) 10 ml Q8 IV Last administered on 11/30/18at 21:07; Admin Dose 10 ML; Start 11/26/18 at 22:00 Ascorbic Acid (Vitamin C) 500 mg DAILY GTB Last administered on 11/30/18at 09:40; Admin Dose 500 MG; Start 11/27/18 at 09:00 Baclofen (Lioresal) 20 mg TID GTB Last administered on 11/30/18at 21:06; Admin Dose 20 MG; Start 11/26/18 at 21:00 Cholecalciferol (Vitamin D) 2,000 unit DAILY GTB Last administered on 11/30/18at 09:40; Admin Dose 2,000 UNIT; Start 11/27/18 at 09:00 Cyanocobalamin (Vitamin B12) 1,000 mcg DAILY GTB Last administered on 11/30/18at 09:40; Admin Dose 1,000 MCG; Start 11/27/18 at 09:00 Miscellaneous Information 1 ea NOTE XX ; Start 11/26/18 at 18:30 Glucose (Glutose) 15 gm Q15M PRN PO DECREASED GLUCOSE; Start 11/26/18 at 18:30 Glucose (Glutose) 22.5 gm Q15M PRN PO DECREASED GLUCOSE; Start 11/26/18 at 18:30 Dextrose (D50w Syringe) 25 ml Q15M PRN IV DECREASED GLUCOSE; Start 11/26/18 at 18:30 Dextrose (D50w Syringe) 50 ml Q15M PRN IV DECREASED GLUCOSE; Start 11/26/18 at 18:30 Glucagon (Glucagen) 1 mg Q15M PRN IM DECREASED GLUCOSE; Start 11/26/18 at 18:30 Glucose (Glutose) 15 gm Q15M PRN BUCCAL DECREASED GLUCOSE; Start 11/26/18 at 18:30 Diagnostic Test (Pha) (Accu-Chek) 1 ea 02 XX Last administered on 11/29/18at 02:11; Admin Dose 1 EA; Start 11/27/18 at 02:00 Insulin Aspart (Novolog Insulin Pen) NOVOLOG *MILD* ALGORI... Q4 SC Last administered on 11/30/18at 05:11; Admin Dose 2 UNIT; Start 11/27/18 at 00:00 Collagenase (Santyl) 1 applic PRN PRN TOP .WOUND; Start 11/27/18 at 09:00 Dextrose/Sodium Chloride 1,000 ml @ 70 mls/hr [id number] IV Last administered on 11/30/18at 13:27; Admin Dose 70 MLS/HR; Start 11/27/18 at 12:30 Sodium Hypochlorite (Dakins Diluted (40)) 1 applic BID TP Last administered on 11/30/18at 21:07; Admin Dose 1 APPLIC; Start 11/27/18 at 21:00 Lorazepam (Ativan) 1 mg Q2H PRN IV SEIZURES Last administered on 11/29/18at 14:39; Admin Dose 1 MG; Start 11/27/18 at 18:00 Meropenem/Sodium Chloride 50 ml @ 100 mls/hr Q8 IVPB Last administered on 11/30/18at 21:07; Admin Dose 100 MLS/HR; Start 11/28/18 at 10:00 Aspirin (Aspirin) 81 mg DAILY GTB Last administered on 11/30/18at 09:40; Admin D ose 81 MG; Start 11/29/18 at 10:00 Levetiracetam 100 ml @ 400 mls/hr Q12 IVPB Last administered on 11/30/18at 21:07; Admin Dose 400 MLS/HR; Start 11/29/18 at 21:00 Assessment/Plan Assessment/Plan (Daily) IMP: 1. Sepsis 2. Chronic Resp Failure s/p trach 3. Encephalopathy 4. Afib 5. CHF RECS: 1. Abx per ID 2. BD's/CPT/trach care 3. Increase free H20 FAWAD URIBE MD Nov 30, 2018 22:14
[2018-12-01] VITALS (12 sets, daily range): BP systolic 108–134; BP diastolic 56–75; PULSE 68–76; RESP 17–22
[2018-12-01] MEDS: INSULIN ASPART [NOVOLOG] 3 ML PEN SC SCH ×6 (00:50→21:00)
[2018-12-01] MEDS: ACCU-CHEK XX SCH (00:50)
[2018-12-01] MEDS: MEROPENEM 1 GM/50ML(PMX) 50 ML IVPB SCH (05:15)
[2018-12-01] MEDS: DEXTROSE 5%-0.45% NACL 1,000 ML IV SCH ×3 (05:15→22:34)
[2018-12-01] MEDS: CYANOCOBALAMIN 500 MCG TAB GTB SCH (09:24)
[2018-12-01] MEDS: ASCORBIC ACID 500 MG TAB GTB SCH (09:24)
[2018-12-01] MEDS: LEVETIRACETAM 1000 MG (PMX) 100 ML IVPB SCH ×2 (09:24→21:39)
[2018-12-01] MEDS: CHOLECALCIFEROL 2,000 UNIT CAP GTB SCH (09:24)
[2018-12-01] MEDS: DAKINS 0.0125%(1/40) 473 ML SOLUTION TP SCH ×2 (09:25→21:40)
[2018-12-01] MEDS: BALSAM PERU/CASTOR OIL 60 GM TUBE TOP SCH (09:25)
[2018-12-01] MEDS: ASPIRIN 81 MG TAB GTB SCH (09:25)
[2018-12-01] MEDS: BACLOFEN 10 MG TAB GTB SCH ×3 (09:25→21:40)
--- NOTE | 2018-12-01 10:02 | CONS ---
[facility] Name: Brenda Willingham Unit Number: [id number] Date of : 1945 Patient Status: Admitted Inpatient Attending Doctor: Nirmal Shannon MD Edit: IRWIN PINA M.D. on 12/02/18 @ 15:40 Silvana: I discussed the management with MANUEL Chand and agree with her Assessment/Plan Assessment/Plan Hospital Course (Demo Recall) # sepsis, endovascular infection, respiratory - s/p septic shock due to UTI - coag negative Staph in blood cultures on 11/26/2018, probable contaminant - colonization of the airway by pseudomonas and corynebacteria - h/o sepsis due to bacteremia and pneumonia - h/o bacteremia: blood cultures grew enterococcus faecalis on 09/17/2018 secondary to R hip wound infection as its wound culture on 09/16/2018 grew E. faecalis as well - h/o recurrent acute on chronic hypoxemic respiratory failure secondary to secretion retention, mucous plugging, major left lung atelectasis, severe shunting - h/o probable aspiration pneumonia. - h/o pneumonia due to pseudomonas on 09/30/2018. s/p Levaquin (10/03/18- 10/07/2018), Meropenem (restart 09/30/2018-10/03/18, 10/12/18 - 10/19/2018) and empiric Amikacin (09/30/18-10/03/18) - H/o intubation on 09/30/2018 - H/o tracheostomy on 10/04/2018 - h/o pseudomonas in urine culture on 09/17/2018 with mild pyuria; treated with Cefepime (09/20/2018-09/25/2018) # infection of wound, OM of R hip - colonization of the wound of R hip by pseudomonas (wound culture on 10/31/2018), acinetobacter (wound culture on 11/27/2018) - h/o repeat debridement at [facility] on 11/03/[address]. [address] Pierson, the wound appeared clean during the I&D (my conversation with him on 11/06/2018) - H/o stage sacral decubitus ulcer extending to bilateral buttocks. She reportedly had total hip dislocation and exposed femoral head. CT pelvis showed e/o OM. Pt complete IV vancomycin (09/17/2018-10/29/2018) for sacral OM associated with E. faecalis - H/o sharp excisional debridement down to and including bone of the sacrum on 08/22/2018 and 09/19/2018 - H/o excision of R hip ulcer, girdlestone resection arthroplasty and flap reconstruction 09/23/2018. The surgical pathology showed osteomyelitis of R hip bone, soft tissue cellulitis, and bony margin of excision was free of the disease - XR of R hip on 11/09/2009 showed the remaining R femoral shaft in transverse orientation and with lateral deviation - h/o removal of devitalized/necrotic tissue by Dr. Pierson on 10/07/2018 # renal/ - probable UTI (hematuria on 11/26/2018) due to MDR Acinetobacter - treated with meropenem (11/28/2018-12/01/2018) - H/o moderate L hydronephrosis per renal US - funguria, recurrent # heme/neuro - H/o acute on chronic anemia requiring PRBC - Metabolic encephalopathy - Supranuclear palsy # endo, cardiac - Diabetes Mellitus - A fib with RVR - Chronic diastolic HF (EF 40-45% with grade 1 DD per 2D Echo 10/24/2018) - H/o hypertension # allergy - Penicillin allergy (throat swelling) but Pt tolerates cefepime , ceftazidime, meropenem - Resulted: [id number] <31 Recommendations: - DC meropenem (11/28/2018-) as pt has now completed a 3 day course for UTI - monitor Pt closely off antibiotics - according to Dr. Pierson who performed the wound debridement, Pt needs wound care until granulation tissue builds and infection is cleared. Then he would decide if Pt should get repeat closure or not Management d/w JAY Perez and with Dr. Pina Consultation Date/Type/Reason Admit Date/Time Nov 26, 2018 at 20:42 Initial Consult Date 11/27/18 Type of Consult Infectious Disease Requesting Provider: NADEEN CHO Date/Time of Note DATE: 12/01/18 TIME: 10:02 24 HR Interval Summary Free Text/Dictation No acute issues per d/w nursing. Subjective hx not possible: pt non-verbal Exam/Review of Systems Exam Vitals Vital Signs Date Temp Pulse Resp B/P (MAP) Pulse Ox O2 O2 Flow FiO2 Time Delivery Rate 12/01/18 72 08:00 12/01/18 98.0 22 108/56 96 07:39 (73) 12/01/18 5.0 28 05:31 12/01/18 Aerosol 05:31 T Tube Intake and Output 11/30/18 11/30/18 12/01/18 1515:00 23:00 07:00 IntakeIntake Total 950 ml 1880 ml OutputOutput Total 930 ml 500 ml BalanceBalance 20 ml 1380 ml Exam Constitutional: well developed, non-verbal, frail, other (chronically debilitated) Psych: other (unable to assess) Head: normocephalic, atraumatic Eyes: nl conjunctiva, nl lids ENMT: nl external ears & nose, nl nasal mucosa & septum, other (Limited exam of OP and only tip of tongue is exposed - MM pink and dry) Neck: other (trach with T-piece) Respiratory: diminished breath sounds (mild coarse breath sounds) Cardiovascular: regular rate and rhythm, nl pulses Gastrointestinal: soft, non-tender, other (G-tube clamped) Genitourinary - Female: other (+Ramires) Musculoskeletal: other (large wound on R hip with exposed femur - photos noted in chart) Extremities: normal pulses, other (contractures to all 4 extremities); No edema Neurological: unresponsive (obtunded) Skin: other (blanching erythema of bilateral upper thighs; photos of wounds and nurses notes reviewed) Results Result Diagram: 11/29/18 0430 11/29/18 0430 Results 24hrs Laboratory Tests Test 11/30/18 13:28 11/30/18 17:26 11/30/18 21:03 12/01/18 00:35 Bedside Glucose 124 124 126 128 Test 12/01/18 05:20 12/01/18 08:52 Bedside Glucose 172 138 Imaging Imaging CXR 11/29/2018: 1. Tracheostomy tube and left PICC catheter as described above. 2. Interval onset of left lower lobe retrocardiac consolidation or atelectasis and small left pleural effusion 3. Interval increase in the mild cardiogenic pulmonary venous hypertension 4. Mild cardiomegaly and atherosclerotic vascular disease Medications Medication Current Medications IV Flush (NS 10 ml) 10 ml Q8 IV Last administered on 12/01/18 05:15; Admin Dose 10 ML; Start 11/26/18 at 22:00 Ascorbic Acid (Vitamin C) 500 mg DAILY GTB Last administered on 12/01/18 09:24; Admin Dose 500 MG; Start 11/27/18 at 09:00 Baclofen (Lioresal) 20 mg TID GTB Last administered on 12/01/18 09:25; Admin Dose 20 MG; Start 11/26/18 at 21:00 Cholecalciferol (Vitamin D) 2,000 unit DAILY GTB Last administered on 12/01/18 09:24; Admin Dose 2,000 UNIT; Start 11/27/18 at 09:00 Cyanocobalamin (Vitamin B12) 1,000 mcg DAILY GTB Last administered on 12/01/18 09:24; Admin Dose 1,000 MCG; Start 11/27/18 at 09:00 Miscellaneous Information 1 ea NOTE XX ; Start 11/26/18 at 18:30 Glucose (Glutose) 15 gm Q15M PRN PO DECREASED GLUCOSE; Start 11/26/18 at 18:30 Glucose (Glutose) 22.5 gm Q15M PRN PO DECREASED GLUCOSE; Start 11/26/18 at 18:30 Dextrose (D50w Syringe) 25 ml Q15M PRN IV DECREASED GLUCOSE; Start 11/26/18 at 18:30 Dextrose (D50w Syringe) 50 ml Q15M PRN IV DECREASED GLUCOSE; Start 11/26/18 at 18:30 Glucagon (Glucagen) 1 mg Q15M PRN IM DECREASED GLUCOSE; Start 11/26/18 at 18:30 Glucose (Glutose) 15 gm Q15M PRN BUCCAL DECREASED GLUCOSE; Start 11/26/18 at 18:30 Diagnostic Test (Pha) (Accu-Chek) 1 ea 02 XX Last administered on 11/29/18at 02:11; Admin Dose 1 EA; Start 11/27/18 at 02:00 Insulin Aspart (Novolog Insulin Pen) NOVOLOG *MILD* ALGORI... Q4 SC Last adm inistered on 12/01/18 05:42; Admin Dose 1 UNIT; Start 11/27/18 at 00:00 Collagenase (Santyl) 1 applic PRN PRN TOP .WOUND; Start 11/27/18 at 09:00 Dextrose/Sodium Chloride 1,000 ml @ 70 mls/hr [id number] IV Last administered on 12/01/18 05:15; Admin Dose 70 MLS/HR; Start 11/27/18 at 12:30 Sodium Hypochlorite (Dakins Diluted ()) 1 applic BID TP Last administered on 12/01/18 09:25; Admin Dose 1 APPLIC; Start 11/27/18 at 21:00 Lorazepam (Ativan) 1 mg Q2H PRN IV SEIZURES Last administered on 11/29/18 14:39; Admin Dose 1 MG; Start 11/27/18 at 18:00 Meropenem/Sodium Chloride 50 ml @ 100 mls/hr Q8 IVPB Last administered on 12/01/18 05:15; Admin Dose 100 MLS/HR; Start 11/28/18 at 10:00 Aspirin (Aspirin) 81 mg DAILY GTB Last administered on 12/01/18 09:25; Admin Dose 81 MG; Start 11/29/18 at 10:00 Levetiracetam 100 ml @ 400 mls/hr Q12 IVPB Last administered on 12/01/18 09:24; Admin Dose 400 MLS/HR; Start 11/29/18 at 21:00 CONOR CHAND NP Dec 01, 2018 10:02
--- NOTE | 2018-12-01 10:16 | CONS ---
Assessment/Plan Assessment/Plan Hospital Course 73 yo F with PSP and multiple other comorbidities who is admitted to the [facility] ICU for management of presumed septic shock. On 11/27, she was noted to have new onset seizures... for which neurology is consulted. On 11/29, she was noted to have a recurrence of the same.. The clinical picture could be consistent with epilepsy... Meningoencephalitis is less likely.. MRI brain is reassuringly negative for acute intracranial pathology...though notable for volume loss/ventriculomegaly. EEG was without epileptiform activity.. P: Cont Keppra maintenance 1g BID for now Ativan IV PRN prolonged seizure >5 min or for cluster Other medical management per primary Will follow clinically Consultation Date/Type/Reason Admit Date/Time Nov 26, 2018 at 20:42 Type of Consult Neurology Requesting Provider: NADEEN CHO Date/Time of Note DATE: 12/01/18 TIME: 10:16 24 HR Interval Summary Free Text/Dictation Continues acute care. Subjective hx not possible: pt non-verbal Exam Vital Signs Vitals Vital Signs Date Temp Pulse Resp B/P (MAP) Pulse Ox O2 O2 Flow FiO2 Time Delivery Rate 12/01/18 72 08:00 12/01/18 98.0 22 108/56 96 07:39 (73) 12/01/18 5.0 28 05:31 12/01/18 Aerosol 05:31 T Tube Intake and Output 11/30/18 11/30/18 12/01/18 1414:59 22:59 06:59 IntakeIntake Total 950 ml 1880 ml OutputOutput Total 930 ml 500 ml BalanceBalance 20 ml 1380 ml Exam PE: Gen Appearance: No Apparent Distress HEENT: Trach; on t-bar Cardiovascular: Regular rate Abdomen: Soft; PEG Extremities: Dry; BL wrists contracted NE: The patient was obtunded and nonverbal. Opens eyes to noxious stimuli. Does not track or follow any commands. Cranial nerve examination was limited by mental status. Pupils were equal and reactive to light. There was no afferent pupillary defect. Funduscopic examination was limited. Face was grossly symmetric, w/ present corneal and cough reflexes. Tone was spastic in the UE. Muscle bulk was diminished. I did not see fasciculations. The patient withdrew to noxious stimulation x 4. Coordination and gait testing was limited by mental status. Arm and leg reflexes were within normal limits and symmetric. Garza's sign was absent. Plantar responses were flexor. TINO PRINCE NP Dec 01, 2018 10:16
--- NOTE | 2018-12-01 14:31 | CONS ---
Consult Date/Type/Reason Admit Date/Time Nov 26, 2018 at 20:42 Initial Consult Date 11/27/18 Type of Consultation: Pulm Requesting Provider: NADEEN CHO Date/Time of Note DATE: 12/01/18 TIME: 14:30 Subjective NO acute events - pt comfortable - no CP - no focal ectopy on tele. ROS: No fever, no chills, no nausea, no vomiting, no diarrhea/constipation - per nurse Objective Vitals Vital Signs Date Temp Pulse Resp B/P (MAP) Pulse Ox O2 O2 Flow FiO2 Time Delivery Rate 12/01/18 76 12:00 12/01/18 97.8 18 110/57 96 11:38 (74) 12/01/18 5.0 28 05:31 12/01/18 Aerosol 05:31 T Tube Intake and Output 11/30/18 11/30/18 12/01/18 1515:00 23:00 07:00 IntakeIntake Total 950 ml 1880 ml OutputOutput Total 930 ml 500 ml BalanceBalance 20 ml 1380 ml Exam General: WN/WD/NAD, AOx 0 HEENT: Unicetric/atraumatic/EOMI (does not follow commands) NECK: JVD elevated, no thyromegaly Lymph: no lymphadenopathy HEART: regular with no S3, II/ systolic murmur at apex LUNGS: Coarse sounds ABD: soft, NT, ND, +BS : Intact Neuro: contracted SKIN: chronic changes EXT: trace edema Results/Medications Result Diagram: 11/29/18 0430 11/29/18 0430 Results 24 hrs Laboratory Tests Test 11/30/18 17:26 11/30/18 21:03 12/01/18 00:35 12/01/18 05:20 Bedside Glucose 124 126 128 172 Test 12/01/18 08:52 Bedside Glucose 138 Home Meds Reported Medications Ondansetron Hcl* (Ondansetron Hcl*) 4 Mg Tablet, 4 MG PO Q6H PRN for n/v, TAB 11/26/18 Ascorbic Acid* (Vitamin C*) 500 Mg Capsule.sa, 500 MG GTB DAILY, CAP 11/26/18 Acetaminophen* (Acetaminophen*) 325 Mg Tablet, 650 MG GTB Q4H PRN for PAIN AND OR ELEVATED TEMP, #30 TAB 11/26/18 Sertraline Hcl* (Sertraline Hcl*) 50 Mg Tablet, 50 MG GTB DAILY, #30 TAB 11/26/18 Protein Supplement (Promod) 946 Ml Liquid, 30 ML GTB for supplement 11/26/18 Lansoprazole* (Lansoprazole*) 30 Mg Capsule.dr, 30 MG GTB BID, CAP 11/26/18 Hydrocodone/Acetaminophen ([place] 5-325 Tablet) 1 Each Tablet, 1 EACH GTB Q4H PRN for PAIN, TAB 11/26/18 Polyethylene Glycol* (Miralax*) 17 Gm Powd.pack, 17 GM GTB BID, #60 PACKET 11/26/18 Metoprolol Tartrate* (Lopressor*) 25 Mg Tab, 25 MG GTB BID, #60 TAB 11/26/18 Lisinopril* (Lisinopril*) 5 Mg Tablet, 5 MG GTB DAILY, #30 TAB 11/26/18 Insulin Aspart* (Novolog Insulin Pen*) 100 Unit/Ml Soln, 0 SC .SLIDING SCALE AC, EA INJECT PER SLIDING SCALE; IF 70-150=0unit; 151-200= 2units; 201-250=4units; 251-300=6units; 301-350=8units; 351-400=10units and Call MD, Subcutaneously before meals and at bedtime fo DM. 11/26/18 Insulin Glargine* (Lantus*) 100 Unit/Ml Soln, 5 UNIT SC QHS, #1 VIAL [id number] SQ AT BEDTIME FOR TYPE 2DIABETES MELLITUS WITHOUT COMPLICATIONS 11/26/18 Levetiracetam* (Keppra*) 500 Mg/5 Ml Solution, 100 MG GTB BID for SEIZURE for 30 Days, BOTTLE 11/26/18 Ipratropium-Albuterol (Ipratropium-Albuterol) 0.5-3 Mg/3 Ml Ampul.neb, 3 ML INHALATION Q6, #30 VIAL 11/26/18 Ferrous Sulfate* (Ferrous Sulfate*) 220 Mg/5 Ml Solution, 330 MG PO BID, ML 11/26/18 Epoetin Haroon (Epogen) 10,000 Units/Ml Soln, 61308 UNITS SC QWED for ANEMIA, VIAL 11/26/18 Cyanocobalamin* (Vitamin B-12*) 1,000 Mcg Tablet.sa, 1000 MCG GTB DAILY, TAB 11/26/18 Clonazepam* (Clonazepam*) 0.5 Mg Tablet, 0.5 MG GTB BID, TAB 11/26/18 Cholecalciferol (Vitamin D3) (VITAMIN D-3) 2,000 Unit Capsule, 2000 UNIT GTB DAILY, CAP 11/26/18 Baclofen* (Baclofen*) 10 Mg Tablet, 20 MG GTB TID for MUSCLE SPASM, TAB 11/26/18 Aspirin* (Aspirin* EC) 81 Mg Tablet.dr, 81 MG GTB DAILY, TAB 11/26/18 Amiodarone Hcl* (Amiodarone Hcl*) 200 Mg Tablet, 200 MG GTB BID for ARRHYTMIA, #60 TAB 11/26/18 Zolpidem Tartrate* (Zolpidem Tartrate*) 5 Mg Tablet, 5 MG GTB QHS PRN for INSOMNIA, #30 TAB 11/26/18 Acidophilus-Bulgaricus* (BD Lactinex*) 1 Pkt Packet, 1 PKT GTB BID, PACKET 11/26/18 Zinc Sulfate* (Zinc Sulfate*) 220 Mg Tablet, 220 MG GTB DAILY for 30 Days, #30 TAKE 1 CAPSULE VIA G-TUBE EVERY DAY 11/26/18 Estrogens Conjugated* (Premarin*) 0.45 Mg Tablet, 1.5 MG PO DAILY 02/18/13 Discontinued Reported Medications [Tramadol] No Conflict Check 06/26/13 [Oxybutynin] No Conflict Check 02/18/13 [Furosemide] No Conflict Check 02/18/13 [Atorvastatin] No Conflict Check 02/18/13 [Lorazepam] No Conflict Check 02/18/13 Medications Current Medications IV Flush (NS 10 ml) 10 ml Q8 IV Last administered on 12/01/18at 05:15; Admin Dose 10 ML; Start 11/26/18 at 22:00 Ascorbic Acid (Vitamin C) 500 mg DAILY GTB Last administered on 12/01/18at 09:24; Admin Dose 500 MG; Start 11/27/18 at 09:00 Baclofen (Lioresal) 20 mg TID GTB Last administered on 12/01/18at 09:25; Admin Dose 20 MG; Start 11/26/18 at 21:00 Cholecalciferol (Vitamin D) 2,000 unit DAILY GTB Last administered on 12/01/18 09:24; Admin Dose 2,000 UNIT; Start 11/27/18 at 09:00 Cyanocobalamin (Vitamin B12) 1,000 mcg DAILY GTB Last administered on 12/01/18 09:24; Admin Dose 1,000 MCG; Start 11/27/18 at 09:00 Miscellaneous Information 1 ea NOTE XX ; Start 11/26/18 at 18:30 Glucose (Glutose) 15 gm Q15M PRN PO DECREASED GLUCOSE; Start 11/26/18 at 18:30 Glucose (Glutose) 22.5 gm Q15M PRN PO DECREASED GLUCOSE; Start 11/26/18 at 18:30 Dextrose (D50w Syringe) 25 ml Q15M PRN IV DECREASED GLUCOSE; Start 11/26/18 at 18:30 Dextrose (D50w Syringe) 50 ml Q15M PRN IV DECREASED GLUCOSE; Start 11/26/18 at 18:30 Glucagon (Glucagen) 1 mg Q15M PRN IM DECREASED GLUCOSE; Start 11/26/18 at 18:30 Glucose (Glutose) 15 gm Q15M PRN BUCCAL DECREASED GLUCOSE; Start 11/26/18 at 18:30 Diagnostic Test (Pha) (Accu-Chek) 1 ea 02 XX Last administered on 11/29/18at 02: 11; Admin Dose 1 EA; Start 11/27/18 at 02:00 Insulin Aspart (Novolog Insulin Pen) NOVOLOG *MILD* ALGORI... Q4 SC Last administered on 12/01/18 05:42; Admin Dose 1 UNIT; Start 11/27/18 at 00:00 Collagenase (Santyl) 1 applic PRN PRN TOP .WOUND; Start 11/27/18 at 09:00 Dextrose/Sodium Chloride 1,000 ml @ 70 mls/hr [id number] IV Last administered on 12/01/18 05:15; Admin Dose 70 MLS/HR; Start 11/27/18 at 12:30 Sodium Hypochlorite (Dakins Diluted (40)) 1 applic BID TP Last administered on 12/01/18 09:25; Admin Dose 1 APPLIC; Start 11/27/18 at 21:00 Lorazepam (Ativan) 1 mg Q2H PRN IV SEIZURES Last administered on 4/26/19at 14:39; Admin Dose 1 MG; Start 11/27/18 at 18:00 Aspirin (Aspirin) 81 mg DAILY GTB Last administered on 12/01/18at 09:25; Admin Dose 81 MG; Start 11/29/18 at 10:00 Levetiracetam 100 ml @ 400 mls/hr Q12 IVPB Last administered on 12/01/18at 09:24; Admin Dose 400 MLS/HR; Start 11/29/18 at 21:00 Assessment/Plan Hospital Course (Demo Recall) 1. Atrial fibrillation/atrial flutter with rapid ventricular response - now in SR - treated - will follow. 2. Hypotension/shock state, likely septic - better now. . 3. History of cardiomyopathy with mildly depressed left ventricular ejection fraction approximately 40% to 45%. Keep euvolemic. 4. History of congestive heart failure, systolic, chronic. 5. Possible pneumonia - on meds, con't anti-bx. 6. Sepsis. 7. Leukocytosis. 8. Anemia requiring transfusions. 9. Hypernatremia. 10. Coagulopathy. 11. Urinary tract infection. ZAHIRA RAJAN MD Dec 01, 2018 14:31
--- NOTE | 2018-12-01 14:55 | PN ---
Date/Time of Note Date/Time of Note DATE: 12/01/18 TIME: 14:52 Assessment/Plan VTE Prophylaxis Risk score (from Ns)>0 risk: 3 SCD applied (from Ns): No SCD contraindicated: other Pharmacological prophylaxis: other Pharm contraindication: other Lines/Catheters IV C[facility] Type [facility]from [facility] Saline Lock Urinary Cath still in place: Yes Reason Cath still needed: urinary retention Assessment/Plan Assessment/Plan - Hypokalemia- replace K; fu bmp - SEPSIS -per ID - Hypernatremia- 147 - monitor BMP - If no improvement; will get nephrology consult -Atrial fibrillation/ flutter with rapid ventricular response. Patient is currently in sinus rhythm. - Continue amiodarone. Dr. Monson is following in cardiology consultation. -Progressive supranuclear palsy -Respiratory failure with tracheostomy patient is currently on cool aerosol mist. -Chronic encephalopathy -Decubitus ulcer of the right hip and sacrum, status post Girdlestone procedure of the right hip with flap in September 2018, followed by removal of necrotic tissue by Dr. Triplett at [facility]. -Right hip wound infection with OM of R hip, completed treatment with antibiotics. - surgery follows -Wound dehiscence, s/p repeat debridement at [facility] on 11/03/2018. -Diabetes - GLYCEMIC control -Chronic diastolic CHF -Dysphagia with GT - aspiration precautions -Anemia of chronic disease Further recommendations based on clinical course. Plan of care discussed with Dr. Shannon. staff Result Diagram: 11/29/18 0430 11/29/18 0430 Results 24hrs Laboratory Tests Test 11/30/18 17:26 11/30/18 21:03 12/01/18 00:35 12/01/18 05:20 Bedside Glucose 124 126 128 172 Test 12/01/18 08:52 Bedside Glucose 138 Exam/Review of Systems Exam Vitals Vital Signs Date Temp Pulse Resp B/P (MAP) Pulse Ox O2 O2 Flow FiO2 Time Delivery Rate 12/01/18 76 12:00 12/01/18 97.8 18 110/57 96 11:38 (74) 12/01/18 5.0 28 05:31 12/01/18 Aerosol 05:31 T Tube Intake and Output 11/30/18 11/30/18 12/01/18 1515:00 23:00 07:00 IntakeIntake Total 950 ml 1880 ml OutputOutput Total 930 ml 500 ml BalanceBalance 20 ml 1380 ml Constitutional: non-verbal, frail Eyes: nl lids, nl sclera ENMT: nl external ears & nose Neck: supple, other (trach intact) Respiratory: clear to auscultation Cardiovascular: nl pulses, other (s1s2) Gastrointestinal: soft, other (gt intact) Musculoskeletal: muscle weakness, range of motion, other (BUE/BLE contractures) Neurological: unresponsive Skin: other Results Results 24hrs Laboratory Tests Test 11/30/18 17:26 11/30/18 21:03 12/01/18 00:35 12/01/18 05:20 Bedside Glucose 124 126 128 172 Test 12/01/18 08:52 Bedside Glucose 138 Medications Medication Current Medications IV Flush (NS 10 ml) 10 ml Q8 IV Last administered on 12/01/18 05:15; Admin Dose 10 ML; Start 11/26/18 at 22:00 Ascorbic Acid (Vitamin C) 500 mg DAILY GTB Last administered on 12/01/18at 09:24; Admin Dose 500 MG; Start 11/27/18 at 09:00 Baclofen (Lioresal) 20 mg TID GTB Last administered on 12/01/18 09:25; Admin Dose 20 MG; Start 11/26/18 at 21:00 Cholecalciferol (Vitamin D) 2,000 unit DAILY GTB Last administered on 12/01/18 09:24; Admin Dose 2,000 UNIT; Start 11/27/18 at 09:00 Cyanocobalamin (Vitamin B12) 1,000 mcg DAILY GTB Last administered on 12/01/18 09:24; Admin Dose 1,000 MCG; Start 11/27/18 at 09:00 Miscellaneous Information 1 ea NOTE XX ; Start 11/26/18 at 18:30 Glucose (Glutose) 15 gm Q15M PRN PO DECREASED GLUCOSE; Start 11/26/18 at 18:30 Glucose (Glutose) 22.5 gm Q15M PRN PO DECREASED GLUCOSE; Start 11/26/18 at 18:30 Dextrose (D50w Syringe) 25 ml Q15M PRN IV DECREASED GLUCOSE; Start 11/26/18 at 18:30 Dextrose (D50w Syringe) 50 ml Q15M PRN IV DECREASED GLUCOSE; Start 11/26/18 at 18:30 Glucagon (Glucagen) 1 mg Q15M PRN IM DECREASED GLUCOSE; Start 11/26/18 at 18:30 Glucose (Glutose) 15 gm Q15M PRN BUCCAL DECREASED GLUCOSE; Start 11/26/18 at 18:30 Diagnostic Test (Pha) (Accu-Chek) 1 ea 02 XX Last administered on 11/29/18 02:11; Admin Dose 1 EA; Start 11/27/18 at 02:00 Insulin Aspart (Novolog Insulin Pen) NOVOLOG *MILD* ALGORI... Q4 SC Last administered on 12/01/18 05:42; Admin Dose 1 UNIT; Start 11/27/18 at 00:00 Collagenase (Santyl) 1 applic PRN PRN TOP .WOUND; Start 11/27/18 at 09:00 Dextrose/Sodium Chloride 1,000 ml @ 70 mls/hr [id number] IV Last administered on 12/01/18 05:15; Admin Dose 70 MLS/HR; Start 11/27/18 at 12:30 Sodium Hypochlorite (Dakins Diluted (/40)) 1 applic BID TP Last administered on 12/01/18 09:25; Admin Dose 1 APPLIC; Start 11/27/18 at 21:00 Lorazepam (Ativan) 1 mg Q2H PRN IV SEIZURES Last administered on 11/29/18at 1 4:39; Admin Dose 1 MG; Start 11/27/18 at 18:00 Aspirin (Aspirin) 81 mg DAILY GTB Last administered on 12/01/18 09:25; Admin Dose 81 MG; Start 11/29/18 at 10:00 Levetiracetam 100 ml @ 400 mls/hr Q12 IVPB Last administered on 12/01/18 09:24; Admin Dose 400 MLS/HR; Start 11/29/18 at 21:00 NADENE CHO Dec 01, 2018 14:55
--- NOTE | 2018-12-01 16:46 | CONS ---
Consult Date/Type/Reason Admit Date/Time Nov 26, 2018 at 20:42 Initial Consult Date 11/27/18 Type of Consultation: Pulm Requesting Provider: NADEEN CHO Date/Time of Note DATE: 12/01/18 TIME: 16:45 Subjective No events overnight. Objective Vitals Vital Signs Date Temp Pulse Resp B/P (MAP) Pulse Ox O2 O2 Flow FiO2 Time Delivery Rate 12/01/18 72 16:00 12/01/18 97.8 19 117/56 96 T Tube 15:41 (76) Trach Collar 12/01/18 5.0 28 05:31 Intake and Output 11/30/18 11/30/18 12/01/18 1515:00 23:00 07:00 IntakeIntake Total 950 ml 1880 ml OutputOutput Total 930 ml 500 ml BalanceBalance 20 ml 1380 ml Exam HEENT: Neck supple; no JVD; no LAD: + trach CVS: Irreg irreg, S1 and S2 CHEST: Coarse BS ABD: Soft, NT, + BS EXT: No c/c; contracted; edema Results/Medications Result Diagram: 11/29/18 0430 11/29/18 0430 Results 24 hrs Laboratory Tests Test 11/30/18 17:26 11/30/18 21:03 12/01/18 00:35 12/01/18 05:20 Bedside Glucose 124 126 128 172 Test 12/01/18 08:52 12/01/18 16:28 Bedside Glucose 138 125 Home Meds Reported Medications Ondansetron Hcl* (Ondansetron Hcl*) 4 Mg Tablet, 4 MG PO Q6H PRN for n/v, TAB 11/26/18 Ascorbic Acid* (Vitamin C*) 500 Mg Capsule.sa, 500 MG GTB DAILY, CAP 11/26/18 Acetaminophen* (Acetaminophen*) 325 Mg Tablet, 650 MG GTB Q4H PRN for PAIN AND OR ELEVATED TEMP, #30 TAB 11/26/18 Sertraline Hcl* (Sertraline Hcl*) 50 Mg Tablet, 50 MG GTB DAILY, #30 TAB 11/26/18 Protein Supplement (Promod) 946 Ml Liquid, 30 ML GTB for supplement 11/26/18 Lansoprazole* (Lansoprazole*) 30 Mg Capsule.dr, 30 MG GTB BID, CAP 11/26/18 Hydrocodone/Acetaminophen (Hamilton 5-325 Tablet) 1 Each Tablet, 1 EACH GTB Q4H PRN for PAIN, TAB 11/26/18 Polyethylene Glycol* (Miralax*) 17 Gm Powd.pack, 17 GM GTB BID, #60 PACKET 11/26/18 Metoprolol Tartrate* (Lopressor*) 25 Mg Tab, 25 MG GTB BID, #60 TAB 11/26/18 Lisinopril* (Lisinopril*) 5 Mg Tablet, 5 MG GTB DAILY, #30 TAB 11/26/18 Insulin Aspart* (Novolog Insulin Pen*) 100 Unit/Ml Soln, 0 SC .SLIDING SCALE AC, EA INJECT PER SLIDING SCALE; IF 70-150=0unit; 151-200= 2units; 201-250=4units; 251-300=6units; 301-350=8units; 351-400=10units and Call MD, Subcutaneously before meals and at bedtime fo DM. 11/26/18 Insulin Glargine* (Lantus*) 100 Unit/Ml Soln, 5 UNIT SC QHS, #1 VIAL [id number] SQ AT BEDTIME FOR TYPE 2DIABETES MELLITUS WITHOUT COMPLICATIONS 11/26/18 Levetiracetam* (Keppra*) 500 Mg/5 Ml Solution, 100 MG GTB BID for SEIZURE for 30 Days, BOTTLE 11/26/18 Ipratropium-Albuterol (Ipratropium-Albuterol) 0.5-3 Mg/3 Ml Ampul.neb, 3 ML INHALATION Q6, #30 VIAL 11/26/18 Ferrous Sulfate* (Ferrous Sulfate*) 220 Mg/5 Ml Solution, 330 MG PO BID, ML 11/26/18 Epoetin Haroon (Epogen) 10,000 Units/Ml Soln, 06955 UNITS SC QWED for ANEMIA, VIAL 11/26/18 Cyanocobalamin* (Vitamin B-12*) 1,000 Mcg Tablet.sa, 1000 MCG GTB DAILY, TAB 11/26/18 Clonazepam* (Clonazepam*) 0.5 Mg Tablet, 0.5 MG GTB BID, TAB 11/26/18 Cholecalciferol (Vitamin D3) (VITAMIN D-3) 2,000 Unit Capsule, 2000 UNIT GTB DAILY, CAP 11/26/18 Baclofen* (Baclofen*) 10 Mg Tablet, 20 MG GTB TID for MUSCLE SPASM, TAB 11/26/18 Aspirin* (Aspirin* EC) 81 Mg Tablet.dr, 81 MG GTB DAILY, TAB 11/26/18 Amiodarone Hcl* (Amiodarone Hcl*) 200 Mg Tablet, 200 MG GTB BID for ARRHYTMIA, #60 TAB 11/26/18 Zolpidem Tartrate* (Zolpidem Tartrate*) 5 Mg Tablet, 5 MG GTB QHS PRN for INSOMNIA, #30 TAB 11/26/18 Acidophilus-Bulgaricus* (BD Lactinex*) 1 Pkt Packet, 1 PKT GTB BID, PACKET 11/26/18 Zinc Sulfate* (Zinc Sulfate*) 220 Mg Tablet, 220 MG GTB DAILY for 30 Days, #30 TAKE 1 CAPSULE VIA G-TUBE EVERY DAY 11/26/18 Estrogens Conjugated* (Premarin*) 0.45 Mg Tablet, 1.5 MG PO DAILY 02/18/13 Discontinued Reported Medications [Tramadol] No Conflict Check 06/26/13 [Oxybutynin] No Conflict Check 02/18/13 [Furosemide] No Conflict Check 02/18/13 [Atorvastatin] No Conflict Check 02/18/13 [Lorazepam] No Conflict Check 02/18/13 Medications Current Medications IV Flush (NS 10 ml) 10 ml Q8 IV Last administered on 12/01/18at 05:15; Admin Dose 10 ML; Start 11/26/18 at 22:00 Ascorbic Acid (Vitamin C) 500 mg DAILY GTB Last administered on 12/01/18at 09:24; Admin Dose 500 MG; Start 11/27/18 at 09:00 Baclofen (Lioresal) 20 mg TID GTB Last administered on 12/01/18at 15:49; Admin Dose 20 MG; Start 11/26/18 at 21:00 Cholecalciferol (Vitamin D) 2,000 unit DAILY GTB Last administered on 12/01/18at 09:24; Admin Dose 2,000 UNIT; Start 11/27/18 at 09:00 Cyanocobalamin (Vitamin B12) 1,000 mcg DAILY GTB Last administered on 12/01/18at 09:24; Admin Dose 1,000 MCG; Start 11/27/18 at 09:00 Miscellaneous Information 1 ea NOTE XX ; Start 11/26/18 at 18:30 Glucose (Glutose) 15 gm Q15M PRN PO DECREASED GLUCOSE; Start 11/26/18 at 18:30 Glucose (Glutose) 22.5 gm Q15M PRN PO DECREASED GLUCOSE; Start 11/26/18 at 18:30 Dextrose (D50w Syringe) 25 ml Q15M PRN IV DECREASED GLUCOSE; Start 11/26/18 at 18:30 Dextrose (D50w Syringe) 50 ml Q15M PRN IV DECREASED GLUCOSE; Start 11/26/18 at 18:30 Glucagon (Glucagen) 1 mg Q15M PRN IM DECREASED GLUCOSE; Start 11/26/18 at 18:30 Glucose (Glutose) 15 gm Q15M PRN BUCCAL DECREASED GLUCOSE; Start 11/26/18 at 18 :30 Diagnostic Test (Pha) (Accu-Chek) 1 ea 02 XX Last administered on 11/29/18at 02:11; Admin Dose 1 EA; Start 11/27/18 at 02:00 Insulin Aspart (Novolog Insulin Pen) NOVOLOG *MILD* ALGORI... Q4 SC Last administered on 12/01/18 05:42; Admin Dose 1 UNIT; Start 11/27/18 at 00:00 Collagenase (Santyl) 1 applic PRN PRN TOP .WOUND; Start 11/27/18 at 09:00 Dextrose/Sodium Chloride 1,000 ml @ 70 mls/hr [id number] IV Last administered on 12/01/18 05:15; Admin Dose 70 MLS/HR; Start 11/27/18 at 12:30 Sodium Hypochlorite (Dakins Diluted (40)) 1 applic BID TP Last administered on 12/01/18 09:25; Admin Dose 1 APPLIC; Start 11/27/18 at 21:00 Lorazepam (Ativan) 1 mg Q2H PRN IV SEIZURES Last administered on 11/29/18at 14:39; Admin Dose 1 MG; Start 11/27/18 at 18:00 Aspirin (Aspirin) 81 mg DAILY GTB Last administered on 12/01/18 09:25; Admin Dose 81 MG; Start 11/29/18 at 10:00 Levetiracetam 100 ml @ 400 mls/hr Q12 IVPB Last administered on 4/28/19at 09:24; Admin Dose 400 MLS/HR; Start 11/29/18 at 21:00 Assessment/Plan Assessment/Plan (Daily) IMP: 1. Sepsis 2. Chronic Resp Failure s/p trach 3. Encephalopathy 4. Afib 5. CHF RECS: 1. Abx per ID 2. BD's/CPT/trach care 3. Tf/ free H20 FAWAD URIBE MD Dec 01, 2018 16:46
[2018-12-02] VITALS (12 sets, daily range): BP systolic 121–145; BP diastolic 58–78; PULSE 73–104; RESP 17–18
[2018-12-02] MEDS: INSULIN ASPART [NOVOLOG] 3 ML PEN SC SCH ×6 (00:51→23:45)
[2018-12-02] MEDS: ACCU-CHEK XX SCH (02:00)
[2018-12-02] MEDS: CYANOCOBALAMIN 500 MCG TAB GTB SCH (09:53)
[2018-12-02] MEDS: ASCORBIC ACID 500 MG TAB GTB SCH (09:53)
[2018-12-02] MEDS: ASPIRIN 81 MG TAB GTB SCH (09:54)
[2018-12-02] MEDS: CHOLECALCIFEROL 2,000 UNIT CAP GTB SCH (09:54)
[2018-12-02] MEDS: BACLOFEN 10 MG TAB GTB SCH ×3 (09:55→23:00)
[2018-12-02] MEDS: DAKINS 0.0125%(1/40) 473 ML SOLUTION TP SCH ×2 (09:55→23:02)
[2018-12-02] MEDS: BALSAM PERU/CASTOR OIL 60 GM TUBE TOP SCH (09:55)
--- NOTE | 2018-12-02 10:13 | CONS ---
Assessment/Plan Assessment/Plan Assessment/Plan (Daily) Assessment and recommendations; 1. patient with history of chronic respiratory failure maintained on T-piece as well as history of chronic enthesopathy admitted with bilateral pneumonia due to Acinetobacter with significant clinical and radiological improvement. 2. Interval resolution of hypotension. 3. Stable seizure disorder. 4. Chronic atrial fibrillation. 5. Interval improvement in hypernatremia. 6. Chronic dysphagia, status post G-tube placement in the past. 7. Mild leukocytosis. Continue with supportive care. Will obtain follow-up chest x-ray. Further recommendations once chest x-ray is obtained. Meanwhile continue to hold antibiotic. Consultation Date/Type/Reason Admit Date/Time Nov 26, 2018 at 20:42 Initial Consult Date 11/27/18 Type of Consult Pulmonary/critical care Requesting Provider: NADEEN CHO Date/Time of Note DATE: 12/02/18 TIME: 10:10 24 HR Interval Summary Free Text/Dictation Patient's condition is stable. Because of chronic encephalopathy remains noncommunicative. Has remained hemodynamically stable. General exam; elderly woman, on T-piece via tracheostomy, awake but noncommunicative. Currently in no distress. Exam/Review of Systems Exam Vitals Vital Signs Date Temp Pulse Resp B/P (MAP) Pulse Ox O2 O2 Flow FiO2 Time Delivery Rate 12/02/18 81 08:56 12/02/18 98.7 18 123/58 95 07:41 (79) 12/02/18 5.0 28 05:48 12/02/18 Aerosol 05:48 T Tube Intake and Output 12/01/18 12/01/18 12/02/18 1515:00 23:00 07:00 IntakeIntake Total 100 ml 1900 ml 830 ml OutputOutput Total 900 ml 1000 ml BalanceBalance 100 ml 1000 ml -170 ml Exam HEENT exam; supple neck, no JVD. No lymphadenopathy. Midline trachea. No thyromegaly. Tracheostomy in place. Chest exam; diminished but clear breath sounds. S1-S2 audible, no murmurs. Irregular rhythm. Abdomen exam; soft, no organomegaly. G-tube in place. Bowel sounds audible. Extremity exam; no peripheral edema clubbing. [employer]ORDINATOR exam; patient remains noncommunicative. Results Result Diagram: 12/02/18 0551 12/02/18 0557 Results 24hrs Laboratory Tests Test 12/01/18 16:28 12/01/18 21:38 12/02/18 00:46 12/02/18 05:27 Bedside Glucose 125 136 182 156 Test 12/02/18 05:51 12/02/18 05:57 12/02/18 08:01 12/02/18 09:51 White Blood Count 14.1 #H Red Blood Count 3.65 L Hemoglobin 9.6 L Hematocrit 31.2 L Mean Corpuscular 85.5 Volume Mean Corpuscular 26.3 L Hemoglobin Mean Corpuscular 30.8 L Hemoglobin Concent Red Cell 17.4 H Distribution Width Platelet Count 299 Mean Platelet Volume 10.9 H Immature 4.000 H Granulocytes % Neutrophils % 78.8 H Lymphocytes % 10.4 L Monocytes % 3.7 Eosinophils % 2.6 Basophils % 0.5 Nucleated Red Blood 0.0 Cells % Immature 0.570 H Granulocytes # Neutrophils # 11.1 H Lymphocytes # 1.5 Monocytes # 0.5 Eosinophils # 0.4 Basophils # 0.1 Nucleated Red Blood 0.0 Cells # Sodium Level 138 Potassium Level 4.0 Chloride Level 108 Carbon Dioxide Level 26 Anion Gap 4 L Blood Urea Nitrogen 14 Creatinine 0.32 L Est Glomerular Filtrat Rate mL/min Glucose Level 148 Calcium Level 8.2 L Bedside Glucose 147 144 Medications Medication Current Medications IV Flush (NS 10 ml) 10 ml Q8 IV Last administered on 12/02/18 05:28; Admin Dose 10 ML; Start 11/26/18 at 22:00 Ascorbic Acid (Vitamin C) 500 mg DAILY GTB Last administered on 12/02/18 09:53; Admin Dose 500 MG; Start 11/27/18 at 09:00 Baclofen (Lioresal) 20 mg TID GTB Last administered on 12/02/18 09:55; Admin Dose 20 MG; Start 11/26/18 at 21:00 Cholecalciferol (Vitamin D) 2,000 unit DAILY GTB Last administered on 12/02/18 09:54; Admin Dose 2,000 UNIT; Start 11/27/18 at 09:00 Cyanocobalamin (Vitamin B12) 1,000 mcg DAILY GTB Last administered on 12/02/18 09:53; Admin Dose 1,000 MCG; Start 11/27/18 at 09:00 Miscellaneous Information 1 ea NOTE XX ; Start 11/26/18 at 18:30 Glucose (Glutose) 15 gm Q15M PRN PO DECREASED GLUCOSE; Start 11/26/18 at 18:30 Glucose (Glutose) 22.5 gm Q15M PRN PO DECREASED GLUCOSE; Start 11/26/18 at 18:30 Dextrose (D50w Syringe) 25 ml Q15M PRN IV DECREASED GLUCOSE; Start 11/26/18 at 18:30 Dextrose (D50w Syringe) 50 ml Q15M PRN IV DECREASED GLUCOSE; Start 11/26/18 at 18:30 Glucagon (Glucagen) 1 mg Q15M PRN IM DECREASED GLUCOSE; Start 11/26/18 at 18:30 Glucose (Glutose) 15 gm Q15M PRN BUCCAL DECREASED GLUCOSE; Start 11/26/18 at 18:30 Diagnostic Test (Pha) (Accu-Chek) 1 ea 02 XX Last administered on 11/29/18at 02:11; Admin Dose 1 EA; Start 11/27/18 at 02:00 Insulin Aspart (Novolog Insulin Pen) NOVOLOG *MILD* ALGORI... Q4 SC Last administered on 12/02/18 10:03; Admin Dose 1 UNIT; Start 11/27/18 at 00:00 Collagenase (Santyl) 1 applic PRN PRN TOP .WOUND; Start 11/27/18 at 09:00 Dextrose/Sodium Chloride 1,000 ml @ 70 mls/hr [id number] IV Last administered on 12/01/18 22:34; Admin Dose 70 MLS/HR; Start 11/27/18 at 12:30 Sodium Hypochlorite (Dakins Diluted ()) 1 applic BID TP Last administered on 12/02/18 09:55; Admin Dose 1 APPLIC; Start 11/27/18 at 21:00 Lorazepam (Ativan) 1 mg Q2H PRN IV SEIZURES Last administered on 11/29/18 14:39; Admin Dose 1 MG; Start 11/27/18 at 18:00 Aspirin (Aspirin) 81 mg DAILY GTB Last administered on 12/02/18 09:54; Admin Dose 81 MG; Start 11/29/18 at 10:00 Levetiracetam 100 ml @ 400 mls/hr Q12 IVPB Last administered on 4/28/19at 21:39; Admin Dose 400 MLS/HR; Start 11/29/18 at 21:00 LINH TEJADA Dec 02, 2018 10:13
[2018-12-02] MEDS: LEVETIRACETAM 1000 MG (PMX) 100 ML IVPB SCH ×2 (10:30→23:00)
--- NOTE | 2018-12-02 11:51 | PN ---
Date/Time of Note Date/Time of Note DATE: 12/02/18 TIME: 11:43 Assessment/Plan VTE Prophylaxis Risk score (from [facility])>0 risk: 9 SCD applied (from [facility]): No SCD contraindicated: other Pharmacological prophylaxis: other Pharm contraindication: other Lines/Catheters [facility] Saline Lock Urinary Cath still in place: Yes Reason Cath still needed: urinary retention Assessment/Plan Assessment/Plan - Hypokalemia- resolved - SEPSIS -per ID - Hypernatremia- resolved - monitor BMP - If no improvement; will get nephrology consult -Atrial fibrillation/ flutter with rapid ventricular response. Patient is currently in sinus rhythm. - Continue amiodarone. Dr. Monsno is following in cardiology consultation. -Progressive supranuclear palsy -Respiratory failure with tracheostomy patient is currently on cool aerosol mist. -Chronic encephalopathy -Decubitus ulcer of the right hip and sacrum, status post Girdlestone procedure of the right hip with flap in September 2018, followed by removal of necrotic tissue by Dr. Triplett at [facility]. 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 - surgery follows -Wound dehiscence, s/p repeat debridement at [facility] on 11/03/2018. -Diabetes - GLYCEMIC control -Chronic diastolic CHF -Dysphagia with GT - aspiration precautions -Anemia of chronic disease Further recommendations based on clinical course. Plan of care discussed with Dr. Shannon. staff Result Diagram: 12/02/18 0551 12/02/18 0557 Results 24hrs Laboratory Tests Test 12/01/18 16:28 12/01/18 21:38 12/02/18 00:46 12/02/18 05:27 Bedside Glucose 125 136 182 156 Test 12/02/18 05:51 12/02/18 05:57 12/02/18 08:01 12/02/18 09:51 White Blood Count 14.1 #H Red Blood Count 3.65 L Hemoglobin 9.6 L Hematocrit 31.2 L Mean Corpuscular 85.5 Volume Mean Corpuscular 26.3 L Hemoglobin Mean Corpuscular 30.8 L Hemoglobin Concent Red Cell 17.4 H Distribution Width Platelet Count 299 Mean Platelet Volume 10.9 H Immature 4.000 H Granulocytes % Neutrophils % 78.8 H Lymphocytes % 10.4 L Monocytes % 3.7 Eosinophils % 2.6 Basophils % 0.5 Nucleated Red Blood 0.0 Cells % Immature 0.570 H Granulocytes # Neutrophils # 11.1 H Lymphocytes # 1.5 Monocytes # 0.5 Eosinophils # 0.4 Basophils # 0.1 Nucleated Red Blood 0.0 Cells # Sodium Level 138 Potassium Level 4.0 Chloride Level 108 Carbon Dioxide Level 26 Anion Gap 4 L Blood Urea Nitrogen 14 Creatinine 0.32 L Est Glomerular Filtrat Rate mL/min Glucose Level 148 Calcium Level 8.2 L Bedside Glucose 147 144 Subjective 24 Hr Interval Summary Subjective hx not possible: pt non-verbal Constitutional: requiring O2 Exam/Review of Systems Exam Vitals Vital Signs Date Temp Pulse Resp B/P (MAP) Pulse Ox O2 O2 Flow FiO2 Time Delivery Rate 12/02/18 98.4 81 18 121/58 100 Room Air 11:15 (79) 12/02/18 5.0 28 05:48 Intake and Output 12/01/18 12/01/18 12/02/18 1515:00 23:00 07:00 IntakeIntake Total 100 ml 1900 ml 830 ml OutputOutput Total 900 ml 1000 ml BalanceBalance 100 ml 1000 ml -170 ml Constitutional: non-verbal, frail Psych: nl mood/affect Eyes: nl lids, nl sclera ENMT: nl external ears & nose Neck: other (trach intact) Respiratory: clear to auscultation Cardiovascular: nl pulses, other Gastrointestinal: soft, other (GT intact) Musculoskeletal: muscle weakness, range of motion, other (BUE/BLE contractures) Extremities: normal pulses Neurological: unresponsive Results Results 24hrs Laboratory Tests Test 12/01/18 16:28 12/01/18 21:38 12/02/18 00:46 12/02/18 05:27 Bedside Glucose 125 136 182 156 Test 12/02/18 05:51 12/02/18 05:57 12/02/18 08:01 12/02/18 09:51 White Blood Count 14.1 #H Red Blood Count 3.65 L Hemoglobin 9.6 L Hematocrit 31.2 L Mean Corpuscular 85.5 Volume Mean Corpuscular 26.3 L Hemoglobin Mean Corpuscular 30.8 L Hemoglobin Concent Red Cell 17.4 H Distribution Width Platelet Count 299 Mean Platelet Volume 10.9 H Immature 4.000 H Granulocytes % Neutrophils % 78.8 H Lymphocytes % 10.4 L Monocytes % 3.7 Eosinophils % 2.6 Basophils % 0.5 Nucleated Red Blood 0.0 Cells % Immature 0.570 H Granulocytes # Neutrophils # 11.1 H Lymphocytes # 1.5 Monocytes # 0.5 Eosinophils # 0.4 Basophils # 0.1 Nucleated Red Blood 0.0 Cells # Sodium Level 138 Potassium Level 4.0 Chloride Level 108 Carbon Dioxide Level 26 Anion Gap 4 L Blood Urea Nitrogen 14 Creatinine 0.32 L Est Glomerular Filtrat Rate mL/min Glucose Level 148 Calcium Level 8.2 L Bedside Glucose 147 144 Medications Medication Current Medications IV Flush (NS 10 ml) 10 ml Q8 IV Last administered on 12/02/18at 05:28; Admin Dose 10 ML; Start 11/26/18 at 22:00 Ascorbic Acid (Vitamin C) 500 mg DAILY GTB Last administered on 12/02/18at 09:53 ; Admin Dose 500 MG; Start 11/27/18 at 09:00 Baclofen (Lioresal) 20 mg TID GTB Last administered on 12/02/18at 09:55; Admin Dose 20 MG; Start 11/26/18 at 21:00 Cholecalciferol (Vitamin D) 2,000 unit DAILY GTB Last administered on 12/02/18at 09:54; Admin Dose 2,000 UNIT; Start 11/27/18 at 09:00 Cyanocobalamin (Vitamin B12) 1,000 mcg DAILY GTB Last administered on 12/02/18 09:53; Admin Dose 1,000 MCG; Start 11/27/18 at 09:00 Miscellaneous Information 1 ea NOTE XX ; Start 11/26/18 at 18:30 Glucose (Glutose) 15 gm Q15M PRN PO DECREASED GLUCOSE; Start 11/26/18 at 18:30 Glucose (Glutose) 22.5 gm Q15M PRN PO DECREASED GLUCOSE; Start 11/26/18 at 18:30 Dextrose (D50w Syringe) 25 ml Q15M PRN IV DECREASED GLUCOSE; Start 11/26/18 at 18:30 Dextrose (D50w Syringe) 50 ml Q15M PRN IV DECREASED GLUCOSE; Start 11/26/18 at 18:30 Glucagon (Glucagen) 1 mg Q15M PRN IM DECREASED GLUCOSE; Start 11/26/18 at 18:30 Glucose (Glutose) 15 gm Q15M PRN BUCCAL DECREASED GLUCOSE; Start 11/26/18 at 18:30 Diagnostic Test (Pha) (Accu-Chek) 1 ea 02 XX Last administered on 11/29/18 02:11; Admin Dose 1 EA; Start 11/27/18 at 02:00 Insulin Aspart (Novolog Insulin Pen) NOVOLOG *MILD* ALGORI... Q4 SC Last administered on 12/02/18 10:03; Admin Dose 1 UNIT; Start 11/27/18 at 00:00 Collagenase (Santyl) 1 applic PRN PRN TOP .WOUND; Start 11/27/18 at 09:00 Dextrose/Sodium Chloride 1,000 ml @ 70 mls/hr [id number] IV Last administered on 12/01/18 22:34; Admin Dose 70 MLS/HR; Start 11/27/18 at 12:30 Sodium Hypochlorite (Dakins Diluted (40)) 1 applic BID TP Last administered on 12/02/18 09:55; Admin Dose 1 APPLIC; Start 11/27/18 at 21:00 Lorazepam (Ativan) 1 mg Q2H PRN IV SEIZURES Last administered on 11/29/18 14:39; Admin Dose 1 MG; Start 11/27/18 at 18:00 Aspirin (Aspirin) 81 mg DAILY GTB Last administered on 12/02/18 09:54; Admin Dose 81 MG; Start 11/29/18 at 10:00 Levetiracetam 100 ml @ 400 mls/hr Q12 IVPB Last administered on 12/02/18 10:30; Admin Dose 400 MLS/HR; Start 11/29/18 at 21:00 NADEEN CHO Dec 02, 2018 11:51
--- NOTE | 2018-12-02 12:06 | CONS ---
Assessment/Plan Assessment/Plan Hospital Course (Demo Recall) IMPRESSION: 1. Atrial fibrillation/atrial flutter with rapid ventricular response-now in SR 2. Hypotension/shock state, likely septic. 3. History of cardiomyopathy with mildly depressed left ventricular ejection fraction approximately 40% to 45%. 4. History of congestive heart failure, systolic, chronic. 5. Possible pneumonia. 6. Sepsis. 7. Leukocytosis. 8. Anemia requiring transfusions. 9. Hypernatremia. 10. Coagulopathy. 11. Urinary tract infection. Recc: -Tele -serial ecg's -Continue abx's and f/u cx data -Continue keppra -Now on asa, follow for any bledding complications -systemic anticoag held due to anemia requiring transfusions Consultation Date/Type/Reason Admit Date/Time Nov 26, 2018 at 20:42 Initial Consult Date 11/27/18 Type of Consult Cardiology Reason for Consultation AF Requesting Provider: NADEEN CHO Date/Time of Note DATE: 12/02/18 TIME: 12:03 Exam/Review of Systems Vital Signs Vitals Vital Signs Date Temp Pulse Resp B/P (MAP) Pulse Ox O2 O2 Flow FiO2 Time Delivery Rate 12/02/18 98.4 81 18 121/58 100 Room Air 11:15 (79) 12/02/18 5.0 28 05:48 Intake and Output 12/01/18 12/01/18 12/02/18 1414:59 22:59 06:59 IntakeIntake Total 100 ml 1900 ml 830 ml OutputOutput Total 900 ml 1000 ml BalanceBalance 100 ml 1000 ml -170 ml Exam Exam Review of Systems: CONSTITUTIONAL: No fevers, chills. PULMONARY: trached CARDIOVASCULAR: No obvious chest pain/palpitations GASTROINTESTINAL: No nausea/vomiting. GENITOURINARY: No hematuria/dysuria. MUSCULOSKELETAL: No obvious myagias/arthalgias. PSYCHIATRIC: The patient denies depression. NEUROLOGIC: encephalopathic Constitutional: other (encephalopathic) Psych: no complaints Head: normocephalic ENMT: mucosa pink and moist Neck: supple, jvd (9 cm water), other (trached) Respiratory: other (upper airway rhoncherous sounds) Cardiovascular: irregular rhythm Gastrointestinal: soft, non-tender Musculoskeletal: muscle weakness (generalized) Extremities: edema (none) Neurological: unresponsive Labs Result Diagram: 12/02/18 0551 12/02/18 0557 Results 24hrs Laboratory Tests Test 12/01/18 16:28 12/01/18 21:38 12/02/18 00:46 12/02/18 05:27 Bedside Glucose 125 136 182 156 Test 12/02/18 05:51 12/02/18 05:57 12/02/18 08:01 12/02/18 09:51 White Blood Count 14.1 #H Red Blood Count 3.65 L Hemoglobin 9.6 L Hematocrit 31.2 L Mean Corpuscular 85.5 Volume Mean Corpuscular 26.3 L Hemoglobin Mean Corpuscular 30.8 L Hemoglobin Concent Red Cell 17.4 H Distribution Width Platelet Count 299 Mean Platelet Volume 10.9 H Immature 4.000 H Granulocytes % Neutrophils % 78.8 H Lymphocytes % 10.4 L Monocytes % 3.7 Eosinophils % 2.6 Basophils % 0.5 Nucleated Red Blood 0.0 Cells % Immature 0.570 H Granulocytes # Neutrophils # 11.1 H Lymphocytes # 1.5 Monocytes # 0.5 Eosinophils # 0.4 Basophils # 0.1 Nucleated Red Blood 0.0 Cells # Sodium Level 138 Potassium Level 4.0 Chloride Level 108 Carbon Dioxide Level 26 Anion Gap 4 L Blood Urea Nitrogen 14 Creatinine 0.32 L Est Glomerular Filtrat Rate mL/min Glucose Level 148 Calcium Level 8.2 L Bedside Glucose 147 144 Medications Medications Current Medications IV Flush (NS 10 ml) 10 ml Q8 IV Last administered on 12/02/18 05:28; Admin Dose 10 ML; Start 11/26/18 at 22:00 Ascorbic Acid (Vitamin C) 500 mg DAILY GTB Last administered on 12/02/18 09:53; Admin Dose 500 MG; Start 11/27/18 at 09:00 Baclofen (Lioresal) 20 mg TID GTB Last administered on 12/02/18 09:55; Admin Dose 20 MG; Start 11/26/18 at 21:00 Cholecalciferol (Vitamin D) 2,000 unit DAILY GTB Last administered on 12/02/18 09:54; Admin Dose 2,000 UNIT; Start 11/27/18 at 09:00 Cyanocobalamin (Vitamin B12) 1,000 mcg DAILY GTB Last administered on 12/02/18 09:53; Admin Dose 1,000 MCG; Start 11/27/18 at 09:00 Miscellaneous Information 1 ea NOTE XX ; Start 11/26/18 at 18:30 Glucose (Glutose) 15 gm Q15M PRN PO DECREASED GLUCOSE; Start 11/26/18 at 18:30 Glucose (Glutose) 22.5 gm Q15M PRN PO DECREASED GLUCOSE; Start 11/26/18 at 18:30 Dextrose (D50w Syringe) 25 ml Q15M PRN IV DECREASED GLUCOSE; Start 11/26/18 at 18:30 Dextrose (D50w Syringe) 50 ml Q15M PRN IV DECREASED GLUCOSE; Start 11/26/18 at 18:30 Glucagon (Glucagen) 1 mg Q15M PRN IM DECREASED GLUCOSE; Start 11/26/18 at 18:30 Glucose (Glutose) 15 gm Q15M PRN BUCCAL DECREASED GLUCOSE; Start 11/26/18 at 18:30 Diagnostic Test (Pha) (Accu-Chek) 1 ea 02 XX Last administered on 11/29/18at 02:11; Admin Dose 1 EA; Start 11/27/18 at 02:00 Insulin Aspart (Novolog Insulin Pen) NOVOLOG *MILD* ALGORI... Q4 SC Last administered on 12/02/18at 10:03; Admin Dose 1 UNIT; Start 11/27/18 at 00:00 Collagenase (Santyl) 1 applic PRN PRN TOP .WOUND; Start 11/27/18 at 09:00 Dextrose/Sodium Chloride 1,000 ml @ 70 mls/hr [id number] IV Last administered on 12/01/18at 22:34; Admin Dose 70 MLS/HR; Start 11/27/18 at 12:30 Sodium Hypochlorite (Dakins Diluted (40)) 1 applic BID TP Last administered on 12/02/18at 09:55; Admin Dose 1 APPLIC; Start 11/27/18 at 21:00 Lorazepam (Ativan) 1 mg Q2H PRN IV SEIZURES Last administered on 11/29/18at 14:39; Admin Dose 1 MG; Start 11/27/18 at 18:00 Aspirin (Aspirin) 81 mg DAILY GTB Last administered on 12/02/18at 09:54; Admin Dose 81 MG; Start 11/29/18 at 10:00 Levetiracetam 100 ml @ 400 mls/hr Q12 IVPB Last administered on 12/02/18at 10:30; Admin Dose 400 MLS/HR; Start 11/29/18 at 21:00 MAITE VAZQUEZ Dec 02, 2018 12:06
--- NOTE | 2018-12-02 12:16 | CONS ---
Assessment/Plan Assessment/Plan Hospital Course 73 yo F with PSP and multiple other comorbidities who is admitted to the [facility] ICU for management of presumed septic shock. On 11/27, she was noted to have new onset seizures... for which neurology is consulted. On 11/29, she was noted to have a recurrence of the same.. The clinical picture could be consistent with epilepsy... Meningoencephalitis is less likely.. MRI brain is reassuringly negative for acute intracranial pathology...though notable for volume loss/ventriculomegaly. EEG was without epileptiform activity.. P: Cont Keppra maintenance 1g BID for now Ativan IV PRN prolonged seizure >5 min or for cluster Other medical management per primary Will follow clinically Consultation Date/Type/Reason Admit Date/Time Nov 26, 2018 at 20:42 Type of Consult Neurology Requesting Provider: NADEEN CHO Date/Time of Note DATE: 12/02/18 TIME: 12:16 24 HR Interval Summary Free Text/Dictation Continues acute care. No changes in pt condition reported. Subjective hx not possible: pt non-verbal Exam Vital Signs Vitals Vital Signs Date Temp Pulse Resp B/P (MAP) Pulse Ox O2 O2 Flow FiO2 Time Delivery Rate 12/02/18 98.4 81 18 121/58 100 Room Air 11:15 (79) 12/02/18 5.0 28 05:48 Intake and Output 12/01/18 12/01/18 12/02/18 1515:00 23:00 07:00 IntakeIntake Total 100 ml 1900 ml 830 ml OutputOutput Total 900 ml 1000 ml BalanceBalance 100 ml 1000 ml -170 ml Exam PE: Gen Appearance: No Apparent Distress HEENT: Trach; on t-bar Cardiovascular: Regular rate Abdomen: Soft; PEG Extremities: Dry; BL wrists contracted NE: The patient was obtunded and nonverbal. Opens eyes to noxious stimuli. Does not track or follow any commands. Cranial nerve examination was limited by mental status. Pupils were equal and reactive to light. There was no afferent pupillary defect. Funduscopic examination was limited. Face was grossly symmetric, w/ present corneal and cough reflexes. Tone was spastic in the UE. Muscle bulk was diminished. I did not see fasciculations. The patient withdrew to noxious stimulation x 4. Coordination and gait testing was limited by mental status. Arm and leg reflexes were within normal limits and symmetric. Garza's sign was absent. Plantar responses were flexor. TINO PRINCE NP Dec 02, 2018 12:16
--- NOTE | 2018-12-02 15:45 | CONS ---
Assessment/Plan Assessment/Plan Hospital Course (Demo Recall) # sepsis, endovascular infection, respiratory - intermittent leukocytosis - s/p septic shock due to probable UTI - s/p coag negative Staph in blood cultures on 11/26/2018, probable contaminant - colonization of the airway by pseudomonas and corynebacteria - h/o sepsis due to bacteremia and pneumonia - h/o bacteremia: blood cultures grew enterococcus faecalis on 09/17/2018 secondary to R hip wound infection as its wound culture on 09/16/2018 grew E. faecalis as well - h/o recurrent acute on chronic hypoxemic respiratory failure secondary to secretion retention, mucous plugging, major left lung atelectasis, severe shunting - h/o probable aspiration pneumonia. - h/o pneumonia due to pseudomonas on 09/30/2018. s/p Levaquin (10/03/18- 10/07/2018), Meropenem (restart 09/30/2018-10/03/18, 10/12/18 - 10/19/2018) and empiric Amikacin (09/30/18-10/03/18) - H/o intubation on 09/30/2018 - H/o tracheostomy on 10/04/2018 - h/o pseudomonas in urine culture on 09/17/2018 with mild pyuria; treated with Cefepime (09/20/2018-09/25/2018) # infection of wound, OM of R hip - colonization of the wound of R hip by pseudomonas (wound culture on 10/31/2018), acinetobacter (wound culture on 11/27/2018) - h/o repeat debridement at [facility] on 11/03/[address]. [address] Pierson, her plastic surgeon at [facility], the wound appeared clean during the I&D (my conversation with him on 11/06/2018) - H/o stage sacral decubitus ulcer extending to bilateral buttocks. She reportedly had total hip dislocation and exposed femoral head. CT pelvis showed e/o OM. Pt complete IV vancomycin (09/17/2018-10/29/2018) for sacral OM associated with E. faecalis - H/o sharp excisional debridement down to and including bone of the sacrum on 08/22/2018 and 09/19/2018 - H/o excision of R hip ulcer, girdlestone resection arthroplasty and flap reconstruction 09/23/2018. The surgical pathology showed osteomyelitis of R hip bone, soft tissue cellulitis, and bony margin of excision was free of the disease - according to Dr. Pierson who performed the wound debridement, Pt needs wound care until granulation tissue builds and infection is cleared. Then he would decide if Pt should get repeat closure or not - XR of R hip on 11/09/2009 showed the remaining R femoral shaft in transverse orientation and with lateral deviation - h/o removal of devitalized/necrotic tissue by Dr. Pierson on 10/07/2018 # renal/ - s/p probable UTI (hematuria on 11/26/2018) due to acinetobacter - h/o moderate L hydronephrosis per renal US - funguria, recurrent. Resulted: [id number] <31 # heme, neuro - h/o acute on chronic anemia requiring PRBC - chronic metabolic encephalopathy - supranuclear palsy # endo, cardiac - diabetes Mellitus - A fib with RVR - chronic diastolic HF (EF 40-45% with grade 1 DD per 2D Echo 10/24/2018) - h/o hypertension # allergy - penicillin allergy (throat swelling) but Pt tolerates cefepime, ceftazidime, meropenem Recommendations: - ordered: repeat urinalysis and urine culture, repeat CBC in AM - if urinalysis is consistent with UTI, will restart antibiotics management d/w Pt's JAY Duque Consultation Date/Type/Reason Admit Date/Time Nov 26, 2018 at 20:42 Initial Consult Date 11/26/18 Type of Consult ID Requesting Provider: NADEEN CHO Date/Time of Note DATE: 12/02/18 TIME: 15:40 24 HR Interval Summary Subjective hx not possible: pt non-verbal Exam/Review of Systems Exam Vitals Vital Signs Date Temp Pulse Resp B/P (MAP) Pulse Ox O2 O2 Flow FiO2 Time Delivery Rate 12/02/18 98.5 88 18 123/68 98 Room Air 15:30 (86) 12/02/18 5.0 28 05:48 Intake and Output 12/01/18 12/01/18 12/02/18 1515:00 23:00 07:00 IntakeIntake Total 100 ml 1900 ml 830 ml OutputOutput Total 900 ml 1000 ml BalanceBalance 100 ml 1000 ml -170 ml Constitutional: non-verbal, frail Psych: confusion Head: normocephalic, atraumatic Eyes: nl conjunctiva ENMT: nl external ears & nose, mucosa pink and moist, other (sagging of the R corner of her lip) Neck: other (erlin) Respiratory: diminished breath sounds Cardiovascular: regular rate and rhythm, nl pulses Gastrointestinal: soft, non-tender, other (GT); No distended, No tender Genitourinary - Female: other (FC) Musculoskeletal: other (contractured. +large R hip wound with exposed R femur) Extremities: No edema Neurological: unresponsive Skin: nl turgor, rash or lesions (R hip wound) Results Result Diagram: 12/02/18 0551 12/02/18 0557 Results 24hrs Laboratory Tests Test 12/01/18 16:28 12/01/18 21:38 12/02/18 00:46 12/02/18 05:27 Bedside Glucose 125 136 182 156 Test 12/02/18 05:51 12/02/18 05:57 12/02/18 08:01 12/02/18 09:51 White Blood Count 14.1 #H Red Blood Count 3.65 L Hemoglobin 9.6 L Hematocrit 31.2 L Mean Corpuscular 85.5 Volume Mean Corpuscular 26.3 L Hemoglobin Mean Corpuscular 30.8 L Hemoglobin Concent Red Cell 17.4 H Distribution Width Platelet Count 299 Mean Platelet Volume 10.9 H Immature 4.000 H Granulocytes % Neutrophils % 78.8 H Lymphocytes % 10.4 L Monocytes % 3.7 Eosinophils % 2.6 Basophils % 0.5 Nucleated Red Blood 0.0 Cells % Immature 0.570 H Granulocytes # Neutrophils # 11.1 H Lymphocytes # 1.5 Monocytes # 0.5 Eosinophils # 0.4 Basophils # 0.1 Nucleated Red Blood 0.0 Cells # Sodium Level 138 Potassium Level 4.0 Chloride Level 108 Carbon Dioxide Level 26 Anion Gap 4 L Blood Urea Nitrogen 14 Creatinine 0.32 L Est Glomerular Filtrat Rate mL/min Glucose Level 148 Calcium Level 8.2 L Bedside Glucose 147 144 Test 12/02/18 14:21 Bedside Glucose 132 Medications Medication Current Medications IV Flush (NS 10 ml) 10 ml Q8 IV Last administered on 12/02/18at 14:22; Admin Dose 10 ML; Start 11/26/18 at 22:00 Ascorbic Acid (Vitamin C) 500 mg DAILY GTB Last administered on 12/02/18 09:53; Admin Dose 500 MG; Start 11/27/18 at 09:00 Baclofen (Lioresal) 20 mg TID GTB Last administered on 12/02/18 14:23; Admin Dose 20 MG; Start 11/26/18 at 21:00 Cholecalciferol (Vitamin D) 2,000 unit DAILY GTB Last administered on 12/02/18 09:54; Admin Dose 2,000 UNIT; Start 11/27/18 at 09:00 Cyanocobalamin (Vitamin B12) 1,000 mcg DAILY GTB Last administered on 12/02/18 09:53; Admin Dose 1,000 MCG; Start 11/27/18 at 09:00 Miscellaneous Information 1 ea NOTE XX ; Start 11/26/18 at 18:30 Glucose (Glutose) 15 gm Q15M PRN PO DECREASED GLUCOSE; Start 11/26/18 at 18:30 Glucose (Glutose) 22.5 gm Q15M PRN PO DECREASED GLUCOSE; Start 11/26/18 at 18:30 Dextrose (D50w Syringe) 25 ml Q15M PRN IV DECREASED GLUCOSE; Start 11/26/18 at 18:30 Dextrose (D50w Syringe) 50 ml Q15M PRN IV DECREASED GLUCOSE; Start 11/26/18 at 18:30 Glucagon (Glucagen) 1 mg Q15M PRN IM DECREASED GLUCOSE; Start 11/26/18 at 18:30 Glucose (Glutose) 15 gm Q15M PRN BUCCAL DECREASED GLUCOSE; Start 11/26/18 at 18:30 Diagnostic Test (Pha) (Accu-Chek) 1 ea 02 XX Last administered on 11/29/18at 02:11; Admin Dose 1 EA; Start 11/27/18 at 02:00 Insulin Aspart (Novolog Insulin Pen) NOVOLOG *MILD* ALGORI... Q4 SC Last administered on 12/02/18at 10:03; Admin Dose 1 UNIT; Start 11/27/18 at 00:00 Collagenase (Santyl) 1 applic PRN PRN TOP .WOUND; Start 11/27/18 at 09:00 Dextrose/Sodium Chloride 1,000 ml @ 70 mls/hr [id number] IV Last administered on 12/01/18at 22:34; Admin Dose 70 MLS/HR; Start 11/27/18 at 12:30 Sodium Hypochlorite (Dakins Diluted ()) 1 applic BID TP Last administered on 12/02/18 09:55; Admin Dose 1 APPLIC; Start 11/27/18 at 21:00 Lorazepam (Ativan) 1 mg Q2H PRN IV SEIZURES Last administered on 11/29/18at 14:39; Admin Dose 1 MG; Start 11/27/18 at 18:00 Aspirin (Aspirin) 81 mg DAILY GTB Last administered on 12/02/18at 09:54; Admin Dose 81 MG; Start 11/29/18 at 10:00 Levetiracetam 100 ml @ 400 mls/hr Q12 IVPB Last administered on 12/02/18at 10:30; Admin Dose 400 MLS/HR; Start 11/29/18 at 21:00 IRWIN SKELTON M.D. Dec 02, 2018 15:45
[2018-12-02] MEDS: DEXTROSE 5%-0.45% NACL 1,000 ML IV SCH (23:01)
[2018-12-03] VITALS (11 sets, daily range): BP systolic 102–123; BP diastolic 53–58; PULSE 66–100; RESP 17–22
[2018-12-03] MEDS: ACCU-CHEK XX SCH (02:00)
[2018-12-03] MEDS: INSULIN ASPART [NOVOLOG] 3 ML PEN SC SCH ×6 (02:18→21:37)
--- NOTE | 2018-12-03 06:23 | PN ---
Date/Time of Note Date/Time of Note DATE: 12/03/18 TIME: 06:23 Assessment/Plan VTE Prophylaxis Risk score (from [facility])>0 risk: 9 SCD applied (from [facility]): No SCD contraindicated: other Pharmacological prophylaxis: other Pharm contraindication: other Lines/Catheters IV C[facility]ter Type (from [facility] Saline Lock Urinary Cath still in place: Yes Reason Cath still needed: urinary retention Assessment/Plan Assessment/Plan - SEPSIS -per ID -Atrial fibrillation/ flutter with rapid ventricular response. Patient is currently in sinus rhythm. - Continue amiodarone. Dr. Monson is following in cardiology consultation. -Progressive supranuclear palsy -Respiratory failure with tracheostomy patient is currently on cool aerosol mist. -Chronic encephalopathy -Decubitus ulcer of the right hip and sacrum, status post Girdlestone procedure of the right hip with flap in September 2018, followed by removal of necrotic tissue by Dr. Triplett at [facility]. -Right hip wound infection with OM of R hip, completed treatment with antibiotics. - surgery follows -Wound dehiscence, s/p repeat debridement at [facility] on 11/03/2018. -Diabetes - GLYCEMIC control -Chronic diastolic CHF -Dysphagia with GT - aspiration precautions -Anemia of chronic disease Further recommendations based on clinical course. Plan of care discussed with Dr. Shannon Result Diagram: 12/02/18 0551 12/02/18 0557 Results 24hrs Laboratory Tests Test 12/02/18 08:01 12/02/18 09:51 12/02/18 14:21 12/02/18 17:47 Bedside Glucose 147 144 132 156 Test 12/02/18 22:59 12/03/18 02:11 12/03/18 06:06 Bedside Glucose 169 166 148 Subjective 24 Hr Interval Summary Free Text/Dictation nad stable no new issues eported last night per staff Subjective hx not possible: pt non-verbal Constitutional: requiring O2 Exam/Review of Systems Exam Vitals Vital Signs Date Temp Pulse Resp B/P (MAP) Pulse Ox O2 O2 Flow FiO2 Time Delivery Rate 12/03/18 98.3 100 18 118/53 94 04:57 (74) 12/03/18 5.0 28 03:40 12/02/18 Room Air 15:30 Intake and Output 12/02/18 12/02/18 12/03/18 1515:00 23:00 07:00 IntakeIntake Total 595 ml OutputOutput Total 2100 ml 800 ml BalanceBalance 595 ml -2100 ml -800 ml Constitutional: non-verbal, frail Psych: nl mood/affect Eyes: nl lids, nl sclera ENMT: nl external ears & nose Neck: supple, other (trach intact) Respiratory: diminished breath sounds Cardiovascular: nl pulses, other (s1s2) Gastrointestinal: soft, other (gt intact) Musculoskeletal: muscle weakness, range of motion, other (BUE/BLE contractures) Results Results 24hrs Laboratory Tests Test 12/02/18 08:01 12/02/18 09:51 12/02/18 14:21 12/02/18 17:47 Bedside Glucose 147 144 132 156 Test 12/02/18 22:59 12/03/18 02:11 12/03/18 06:06 Bedside Glucose 169 166 148 Medications Medication Current Medications IV Flush (NS 10 ml) 10 ml Q8 IV Last administered on 12/02/18at 23:01; Admin Dose 10 ML; Start 11/26/18 at 22:00 Ascorbic Acid (Vitamin C) 500 mg DAILY GTB Last administered on 12/02/18at 09:53; Admin Dose 500 MG; Start 11/27/18 at 09:00 Baclofen (Lioresal) 20 mg TID GTB Last administered on 12/02/18at 23:00; Admin Dose 20 MG; Start 11/26/18 at 21:00 Cholecalciferol (Vitamin D) 2,000 unit DAILY GTB Last administered on 12/02/18at 09:54; Admin Dose 2,000 UNIT; Start 11/27/18 at 09:00 Cyanocobalamin (Vitamin B12) 1,000 mcg DAILY GTB Last administered on 12/02/18at 09:53; Admin Dose 1,000 MCG; Start 11/27/18 at 09:00 Miscellaneous Information 1 ea NOTE XX ; Start 11/26/18 at 18:30 Glucose (Glutose) 15 gm Q15M PRN PO DECREASED GLUCOSE; Start 11/26/18 at 18:30 Glucose (Glutose) 22.5 gm Q15M PRN PO DECREASED GLUCOSE; Start 11/26/18 at 18:30 Dextrose (D50w Syringe) 25 ml Q15M PRN IV DECREASED GLUCOSE; Start 11/26/18 at 18:30 Dextrose (D50w Syringe) 50 ml Q15M PRN IV DECREASED GLUCOSE; Start 11/26/18 at 18:30 Glucagon (Glucagen) 1 mg Q15M PRN IM DECREASED GLUCOSE; Start 11/26/18 at 18:30 Glucose (Glutose) 15 gm Q15M PRN BUCCAL DECREASED GLUCOSE; Start 11/26/18 at 18:30 Diagnostic Test (Pha) (Accu-Chek) 1 ea 02 XX Last administered on 11/29/18 02:11; Admin Dose 1 EA; Start 11/27/18 at 02:00 Insulin Aspart (Novolog Insulin Pen) NOVOLOG *MILD* ALGORI... Q4 SC Last administered on 12/03/18 02:18; Admin Dose 1 UNIT; Start 11/27/18 at 00:00 Collagenase (Santyl) 1 applic PRN PRN TOP .WOUND; Start 11/27/18 at 09:00 Dextrose/Sodium Chloride 1,000 ml @ 70 mls/hr [id number] IV Last administered on 12/02/18 23:01; Admin Dose 70 MLS/HR; Start 11/27/18 at 12:30 Sodium Hypochlorite (Dakins Diluted (1/40)) 1 applic BID TP Last administered on 12/02/18 23:02; Admin Dose 1 APPLIC; Start 11/27/18 at 21:00 Lorazepam (Ativan) 1 mg Q2H PRN IV SEIZURES Last administered on 11/29/18 14:39; Admin Dose 1 MG; Start 11/27/18 at 18:00 Aspirin (Aspirin) 81 mg DAILY GTB Last administered on 12/02/18 09:54; Admin Dose 81 MG; Start 11/29/18 at 10:00 Levetiracetam 100 ml @ 400 mls/hr Q12 IVPB Last administered on 12/02/18 23:00; Admin Dose 400 MLS/HR; Start 11/29/18 at 21:00 Acetaminophen (Tylenol Liquid) 650 mg Q4H PRN GTB MILD PAIN(1-3)OR ELEVATED TEMP; Start 12/03/18 at 02:00 NADEEN CHO Dec 03, 2018 06:23
[2018-12-03] MEDS: BALSAM PERU/CASTOR OIL 60 GM TUBE TOP SCH (09:00)
[2018-12-03] MEDS: DAKINS 0.0125%(1/40) 473 ML SOLUTION TP SCH (09:00)
[2018-12-03] MEDS: LEVETIRACETAM 1000 MG (PMX) 100 ML IVPB SCH ×2 (10:04→21:12)
[2018-12-03] MEDS: BACLOFEN 10 MG TAB GTB SCH ×3 (10:05→21:13)
[2018-12-03] MEDS: CYANOCOBALAMIN 500 MCG TAB GTB SCH (10:05)
[2018-12-03] MEDS: ASCORBIC ACID 500 MG TAB GTB SCH (10:05)
[2018-12-03] MEDS: ASPIRIN 81 MG TAB GTB SCH (10:06)
[2018-12-03] MEDS: CHOLECALCIFEROL 2,000 UNIT CAP GTB SCH (10:06)
--- NOTE | 2018-12-03 10:55 | CONS ---
Assessment/Plan Assessment/Plan Assessment/Plan (Daily) Chest x-ray was reviewed from yesterday which is showing chronic appearing left lower lobe changes. Assessment and recommendations; 1. Patient admitted for bilateral pneumonia due to Acinetobacter with significant clinical improvement off antibiotics now. 2. Chronic respiratory failure, maintained on T-piece with stable pulmonary status. 3. Chronic atrial fibrillation. 4. Advanced encephalopathy. 5. Anemia. 6. Stable seizure disorder. Continue current supportive care. Consider discharge to custodial. Prognosis is poor. Consultation Date/Type/Reason Admit Date/Time Nov 26, 2018 at 20:42 Initial Consult Date 11/27/18 Type of Consult Pulmonary/critical care Requesting Provider: NADEEN CHO Date/Time of Note DATE: 12/03/18 TIME: 10:53 24 HR Interval Summary Free Text/Dictation Patient's condition has remained stable. Has remained hemodynamically stable. General exam; elderly woman, awake but noncommunicative. Currently in no distress. Exam/Review of Systems Exam Vitals Vital Signs Date Temp Pulse Resp B/P (MAP) Pulse Ox O2 O2 Flow FiO2 Time Delivery Rate 12/03/18 98.0 75 22 113/55 96 Trach 07:53 (74) Collar 12/03/18 5.0 28 03:40 Intake and Output 12/02/18 12/02/18 12/03/18 1515:00 23:00 07:00 IntakeIntake Total 595 ml 1450 ml OutputOutput Total 2100 ml 1900 ml BalanceBalance 595 ml -2100 ml -450 ml Exam H ENT exam; supple neck, no JVD. No lymphadenopathy. Midline trachea. No th yromegaly. Tracheostomy in place. Attached to T-piece. Chest exam; diminished breath sounds bilaterally. S1-S2 audible, no murmurs. Irregular rhythm. Abdomen exam; soft, G-tube in place. Bowel sounds audible. Extremity exam; no peripheral edema. PARTITION NOTCHER exam; patient remains noncommunicative. Results Result Diagram: 12/02/18 0551 12/02/18 0557 Results 24hrs Laboratory Tests Test 12/02/18 14:21 12/02/18 17:47 12/02/18 22:59 12/03/18 02:11 Bedside Glucose 132 156 169 166 Test 12/03/18 06:06 12/03/18 06:15 12/03/18 08:09 Bedside Glucose 148 141 Urine Color YELLOW Urine Clarity CLOUDY A Urine pH 6.0 Urine Specific 1.009 [place] Urine Ketones NEGATIVE Urine Nitrite NEGATIVE Urine Bilirubin NEGATIVE Urine Urobilinogen NEGATIVE Urine Leukocyte 3+ H Esterase Urine Microscopic 125 H RBC Urine Microscopic 76 H WBC Urine Bacteria MANY A Urine Mucus FEW A Urine Yeast MANY A (Budding) Urine Hemoglobin 3+ H Urine Glucose NEGATIVE Urine Total Protein NEGATIVE Medications Medication Current Medications IV Flush (NS 10 ml) 10 ml Q8 IV Last administered on 12/03/18at 06:46; Admin Dose 10 ML; Start 11/26/18 at 22:00 Ascorbic Acid (Vitamin C) 500 mg DAILY GTB Last administered on 12/03/18 10:05; Admin Dose 500 MG; Start 11/27/18 at 09:00 Baclofen (Lioresal) 20 mg TID GTB Last administered on 12/03/18 10:05; Admin Dose 20 MG; Start 11/26/18 at 21:00 Cholecalciferol (Vitamin D) 2,000 unit DAILY GTB Last administered on 12/03/18at 10:06; Admin Dose 2,000 UNIT; Start 11/27/18 at 09:00 Cyanocobalamin (Vitamin B12) 1,000 mcg DAILY GTB Last administered on 12/03/18 10:05; Admin Dose 1,000 MCG; Start 11/27/18 at 09:00 Miscellaneous Information 1 ea NOTE XX ; Start 11/26/18 at 18:30 Glucose (Glutose) 15 gm Q15M PRN PO DECREASED GLUCOSE; Start 11/26/18 at 18:30 Glucose (Glutose) 22.5 gm Q15M PRN PO DECREASED GLUCOSE; Start 11/26/18 at 18:30 Dextrose (D50w Syringe) 25 ml Q15M PRN IV DECREASED GLUCOSE; Start 11/26/18 at 18:30 Dextrose (D50w Syringe) 50 ml Q15M PRN IV DECREASED GLUCOSE; Start 11/26/18 at 18:30 Glucagon (Glucagen) 1 mg Q15M PRN IM DECREASED GLUCOSE; Start 11/26/18 at 18:30 Glucose (Glutose) 15 gm Q15M PRN BUCCAL DECREASED GLUCOSE; Start 11/26/18 at 18:30 Diagnostic Test (Pha) (Accu-Chek) 1 ea 02 XX Last administered on 11/29/18 02:11; Admin Dose 1 EA; Start 11/27/18 at 02:00 Insulin Aspart (Novolog Insulin Pen) NOVOLOG *MILD* ALGORI... Q4 SC Last administered on 12/03/18 08:12; Admin Dose 1 UNIT; Start 11/27/18 at 00:00 Collagenase (Santyl) 1 applic PRN PRN TOP .WOUND; Start 11/27/18 at 09:00 Dextrose/Sodium Chloride 1,000 ml @ 70 mls/hr [id number] IV Last administered on 12/02/18 23:01; Admin Dose 70 MLS/HR; Start 11/27/18 at 12:30 Sodium Hypochlorite (Dakins Diluted ()) 1 applic BID TP Last administered on 12/03/18 09:00; Admin Dose 1 APPLIC; Start 11/27/18 at 21:00 Lorazepam (Ativan) 1 mg Q2H PRN IV SEIZURES Last administered on 11/29/18 14:39; Admin Dose 1 MG; Start 11/27/18 at 18:00 Aspirin (Aspirin) 81 mg DAILY GTB Last administered on 12/03/18 10:06; Admin Dose 81 MG; Start 11/29/18 at 10:00 Levetiracetam 100 ml @ 400 mls/hr Q12 IVPB Last administered on 12/03/18 10:04; Admin Dose 400 MLS/HR; Start 11/29/18 at 21:00 Acetaminophen (Tylenol Liquid) 650 mg Q4H PRN GTB MILD PAIN(1-3)OR ELEVATED TEMP; Start 12/03/18 at 02:00 LINH TEJADA Dec 03, 2018 10:55
[2018-12-03] MEDS ORDERED: SODIUM HYPOCHLORITE (1/40) 1 LITER BTL IRR SCH (11:04)
--- NOTE | 2018-12-03 12:10 | CONS ---
Assessment/Plan Assessment/Plan Hospital Course 73 yo F with PSP and multiple other comorbidities who [facility] for management of presumed septic shock. On 11/27, she was noted to have new onset seizures... for which neurology is consulted. On 11/29, she was noted to have a recurrence of the same.. The clinical picture could be consistent with epilepsy... Meningoencephalitis is less likely.. MRI brain is reassuringly negative for acute intracranial pathology...though notable for volume loss/ventriculomegaly. EEG was without epileptiform activity.. P: Cont Keppra maintenance 1g BID for now Ativan IV PRN prolonged seizure >5 min or for cluster Supportive care and other medical management per primary Will follow clinically Consultation Date/Type/Reason Admit Date/Time Nov 26, 2018 at 20:42 Type of Consult Neurology Requesting Provider: NADEEN CHO Date/Time of Note DATE: 12/03/18 TIME: 12:10 24 HR Interval Summary Free Text/Dictation Continues acute care. No changes in pt condition reported. Exam Vital Signs Vitals Vital Signs Date Temp Pulse Resp B/P (MAP) Pulse Ox O2 O2 Flow FiO2 Time Delivery Rate 12/03/18 98.6 73 19 123/58 98 Trach 11:57 (79) Collar 12/03/18 5.0 28 03:40 Intake and Output 12/02/18 12/02/18 12/03/18 1515:00 23:00 07:00 IntakeIntake Total 595 ml 1450 ml OutputOutput Total 2100 ml 1900 ml BalanceBalance 595 ml -2100 ml -450 ml Exam PE: Gen Appearance: No Apparent Distress HEENT: Trach; on t-bar Cardiovascular: Regular rate Abdomen: Soft; PEG Extremities: Dry; BL wrists contracted NE: The patient was obtunded and nonverbal. Opens eyes to noxious stimuli. Does not track or follow any commands. Cranial nerve examination was limited by mental status. Pupils were equal and reactive to light. There was no afferent pupillary defect. Funduscopic examination was limited. Face was grossly symmetric, w/ present corneal and cough reflexes. Tone was spastic in the UE. Muscle bulk was diminished. I did not see fasciculations. The patient withdrew to noxious stimulation x 4. Coordination and gait testing was limited by mental status. Arm and leg reflexes were within normal limits and symmetric. Garza's sign was absent. Plantar responses were flexor. TINO PRINCE NP Dec 03, 2018 12:10
--- NOTE | 2018-12-03 12:39 | CONS ---
Assessment/Plan Assessment/Plan Hospital Course (Demo Recall) # sepsis, endovascular infection, respiratory - intermittent leukocytosis - s/p septic shock due to probable UTI - s/p coag negative Staph in blood cultures on 11/26/2018, probable contaminant - colonization of the airway by pseudomonas and corynebacteria - h/o sepsis due to bacteremia and pneumonia - h/o bacteremia: blood cultures grew enterococcus faecalis on 09/17/2018 secondary to R hip wound infection as its wound culture on 09/16/2018 grew E. faecalis as well - h/o recurrent acute on chronic hypoxemic respiratory failure secondary to secretion retention, mucous plugging, major left lung atelectasis, severe shunting - h/o probable aspiration pneumonia. - h/o pneumonia due to pseudomonas on 09/30/2018. s/p Levaquin (10/03/18- 10/07/2018), Meropenem (restart 09/30/2018-10/03/18, 10/12/18 - 10/19/2018) and empiric Amikacin (09/30/18-10/03/18) - H/o intubation on 09/30/2018 - H/o tracheostomy on 10/04/2018 - h/o pseudomonas in urine culture on 09/17/2018 with mild pyuria; treated with Cefepime (09/20/2018-09/25/2018) # infection of wound, OM of R hip - colonization of the wound of R hip by pseudomonas (wound culture on 10/31/2018), acinetobacter (wound culture on 11/27/2018) - h/o repeat debridement at [facility] on 11/03/[address]. [address] Pierson, her plastic surgeon at [facility], the wound appeared clean during the I&D (my conversation with him on 11/06/2018) - H/o stage sacral decubitus ulcer extending to bilateral buttocks. She reportedly had total hip dislocation and exposed femoral head. CT pelvis showed e/o OM. Pt complete IV vancomycin (09/17/2018-10/29/2018) for sacral OM associated with E. faecalis - H/o sharp excisional debridement down to and including bone of the sacrum on 08/22/2018 and 09/19/2018 - H/o excision of R hip ulcer, girdlestone resection arthroplasty and flap reconstruction 09/23/2018. The surgical pathology showed osteomyelitis of R hip bone, soft tissue cellulitis, and bony margin of excision was free of the disease - according to Dr. Pierson who performed the wound debridement, Pt needs wound care until granulation tissue builds and infection is cleared. Then he would decide if Pt should get repeat closure or not - XR of R hip on 11/09/2009 showed the remaining R femoral shaft in transverse orientation and with lateral deviation - h/o removal of devitalized/necrotic tissue by Dr. Pierson on 10/07/2018 # renal/ - s/p probable UTI (hematuria on 11/26/2018) due to acinetobacter - h/o moderate L hydronephrosis per renal US - funguria, recurrent. Resulted: [id number] <31 # heme, neuro - h/o acute on chronic anemia requiring PRBC - chronic metabolic encephalopathy - supranuclear palsy # endo, cardiac - diabetes Mellitus - A fib with RVR - chronic diastolic HF (EF 40-45% with grade 1 DD per 2D Echo 10/24/2018) - h/o hypertension # allergy - penicillin allergy (throat swelling) but Pt tolerates cefepime, ceftazidime, meropenem Recommendations: - pending: repeat urine culture from 12/02/2018 - if urine culture grows, will restart antibiotics management d/w Pt's JAY Duque Consultation Date/Type/Reason Admit Date/Time Nov 26, 2018 at 20:42 Initial Consult Date 11/26/18 Type of Consult ID Requesting Provider: NADEEN CHO Date/Time of Note DATE: 12/03/18 TIME: 12:36 24 HR Interval Summary Subjective hx not possible: pt non-verbal Exam/Review of Systems Exam Vitals Vital Signs Date Temp Pulse Resp B/P (MAP) Pulse Ox O2 O2 Flow FiO2 Time Delivery Rate 12/03/18 98.6 73 19 123/58 98 Trach 11:57 (79) Collar 12/03/18 5.0 28 03:40 Intake and Output 12/02/18 12/02/18 12/03/18 1515:00 23:00 07:00 IntakeIntake Total 595 ml 1450 ml OutputOutput Total 2100 ml 1900 ml BalanceBalance 595 ml -2100 ml -450 ml Constitutional: non-verbal, frail Psych: confusion Head: normocephalic, atraumatic Eyes: nl conjunctiva, nl lids, nl sclera ENMT: mucosa pink and moist Neck: other (trach) Respiratory: crackles/rales (congested sounds) Cardiovascular: regular rate and rhythm, nl pulses Gastrointestinal: soft, non-tender; No distended, No tender Genitourinary - Female: other (FC) Musculoskeletal: other (contractured UEs, +large R femoral wound) Extremities: No edema Neurological: lethargic Skin: ecchymosis (LEs) Results Result Diagram: 12/02/18 0551 12/02/18 0557 Results 24hrs Laboratory Tests Test 12/02/18 14:21 12/02/18 17:47 12/02/18 22:59 12/03/18 02:11 Bedside Glucose 132 156 169 166 Test 12/03/18 06:06 12/03/18 06:15 12/03/18 08:09 12/03/18 11:44 Bedside Glucose 148 141 170 Urine Color YELLOW Urine Clarity CLOUDY A Urine pH 6.0 Urine Specific 1.009 [place] Urine Ketones NEGATIVE Urine Nitrite NEGATIVE Urine Bilirubin NEGATIVE Urine Urobilinogen NEGATIVE Urine Leukocyte 3+ H Esterase Urine Microscopic 125 H RBC Urine Microscopic 76 H WBC Urine Bacteria MANY A Urine Mucus FEW A Urine Yeast MANY A (Budding) Urine Hemoglobin 3+ H Urine Glucose NEGATIVE Urine Total Protein NEGATIVE Medications Medication Current Medications IV Flush (NS 10 ml) 10 ml Q8 IV Last administered on 12/03/18 06:46; Admin Dose 10 ML; Start 11/26/18 at 22:00 Ascorbic Acid (Vitamin C) 500 mg DAILY GTB Last administered on 12/03/18 10:05 ; Admin Dose 500 MG; Start 11/27/18 at 09:00 Baclofen (Lioresal) 20 mg TID GTB Last administered on 12/03/18 10:05; Admin Dose 20 MG; Start 11/26/18 at 21:00 Cholecalciferol (Vitamin D) 2,000 unit DAILY GTB Last administered on 12/03/18 10:06; Admin Dose 2,000 UNIT; Start 11/27/18 at 09:00 Cyanocobalamin (Vitamin B12) 1,000 mcg DAILY GTB Last administered on 12/03/18 10:05; Admin Dose 1,000 MCG; Start 11/27/18 at 09:00 Miscellaneous Information 1 ea NOTE XX ; Start 11/26/18 at 18:30 Glucose (Glutose) 15 gm Q15M PRN PO DECREASED GLUCOSE; Start 11/26/18 at 18:30 Glucose (Glutose) 22.5 gm Q15M PRN PO DECREASED GLUCOSE; Start 11/26/18 at 18:30 Dextrose (D50w Syringe) 25 ml Q15M PRN IV DECREASED GLUCOSE; Start 11/26/18 at 18:30 Dextrose (D50w Syringe) 50 ml Q15M PRN IV DECREASED GLUCOSE; Start 11/26/18 at 18:30 Glucagon (Glucagen) 1 mg Q15M PRN IM DECREASED GLUCOSE; Start 11/26/18 at 18:30 Glucose (Glutose) 15 gm Q15M PRN BUCCAL DECREASED GLUCOSE; Start 11/26/18 at 18:30 Diagnostic Test (Pha) (Accu-Chek) 1 ea 02 XX Last administered on 11/29/18at 02:11; Admin Dose 1 EA; Start 11/27/18 at 02:00 Insulin Aspart (Novolog Insulin Pen) NOVOLOG *MILD* ALGORI... Q4 SC Last administered on 12/03/18at 11:50; Admin Dose 1 UNIT; Start 11/27/18 at 00:00 Collagenase (Santyl) 1 applic PRN PRN TOP .WOUND; Start 11/27/18 at 09:00 Dextrose/Sodium Chloride 1,000 ml @ 70 mls/hr [id number] IV Last administered on 12/02/18at 23:01; Admin Dose 70 MLS/HR; Start 11/27/18 at 12:30 Lorazepam (Ativan) 1 mg Q2H PRN IV SEIZURES Last administered on 11/29/18at 14:39; Admin Dose 1 MG; Start 11/27/18 at 18:00 Aspirin (Aspirin) 81 mg DAILY GTB Last administered on 12/03/18at 10:06; Admin Dose 81 MG; Start 11/29/18 at 10:00 Levetiracetam 100 ml @ 400 mls/hr Q12 IVPB Last administered on 12/03/18at 10:04; Admin Dose 400 MLS/HR; Start 11/29/18 at 21:00 Acetaminophen (Tylenol Liquid) 650 mg Q4H PRN GTB MILD PAIN(1-3)OR ELEVATED TEMP; Start 12/03/18 at 02:00 Sodium Hypochlorite (Dakin'S (Dilute )) 1 applic BID IRR ; Start 12/03/18 at 11:24 IRWIN SKELTON M.D. Dec 03, 2018 12:39
[2018-12-03] MEDS: DEXTROSE 5%-0.45% NACL 1,000 ML IV SCH (13:33)
--- NOTE | 2018-12-03 13:44 | CONS ---
Consult Date/Type/Reason Admit Date/Time Nov 26, 2018 at 20:42 Initial Consult Date 11/27/18 Type of Consultation: Pulm Requesting Provider: NADEEN CHO Date/Time of Note DATE: 12/03/18 TIME: 13:43 Subjective NO acute events - pt comfortable - no CP - in good fluid status now. ROS: No fever, no chills, no nausea, no vomiting, no diarrhea/constipation - per nurse - chronic trach Objective Vitals Vital Signs Date Temp Pulse Resp B/P (MAP) Pulse Ox O2 O2 Flow FiO2 Time Delivery Rate 12/03/18 82 20 98 Aerosol 5.0 28 12:30 T Tube 12/03/18 98.6 123/58 11:57 (79) Intake and Output 12/02/18 12/02/18 12/03/18 1515:00 23:00 07:00 IntakeIntake Total 595 ml 1450 ml OutputOutput Total 2100 ml 1900 ml BalanceBalance 595 ml -2100 ml -450 ml Exam General: WN/WD/NAD, AOx 0 comfortable HEENT: Unicetric/atraumatic/EOMI (does not follow commands) NECK: trach Lymph: no lymphadenopathy HEART: regular with no S3, II/ systolic murmur at apex LUNGS: Coarse sounds ABD: soft, NT, ND, +BS : Intact Neuro: contracted SKIN: chronic changes EXT: trace edema Results/Medications Result Diagram: 12/02/18 0551 12/02/18 0557 Results 24 hrs Laboratory Tests Test 12/02/18 14:21 12/02/18 17:47 12/02/18 22:59 12/03/18 02:11 Bedside Glucose 132 156 169 166 Test 12/03/18 06:06 12/03/18 06:15 12/03/18 08:09 12/03/18 11:44 Bedside Glucose 148 141 170 Urine Color YELLOW Urine Clarity CLOUDY A Urine pH 6.0 Urine Specific 1.009 [place] Urine Ketones NEGATIVE Urine Nitrite NEGATIVE Urine Bilirubin NEGATIVE Urine Urobilinogen NEGATIVE Urine Leukocyte 3+ H Esterase Urine Microscopic 125 H RBC Urine Microscopic 76 H WBC Urine Bacteria MANY A Urine Mucus FEW A Urine Yeast MANY A (Budding) Urine Hemoglobin 3+ H Urine Glucose NEGATIVE Urine Total Protein NEGATIVE Home Meds Reported Medications Ondansetron Hcl* (Ondansetron Hcl*) 4 Mg Tablet, 4 MG PO Q6H PRN for n/v, TAB 11/26/18 Ascorbic Acid* (Vitamin C*) 500 Mg Capsule.sa, 500 MG GTB DAILY, CAP 11/26/18 Acetaminophen* (Acetaminophen*) 325 Mg Tablet, 650 MG GTB Q4H PRN for PAIN AND OR ELEVATED TEMP, #30 TAB 11/26/18 Sertraline Hcl* (Sertraline Hcl*) 50 Mg Tablet, 50 MG GTB DAILY, #30 TAB 11/26/18 Protein Supplement (Promod) 946 Ml Liquid, 30 ML GTB for supplement 11/26/18 Lansoprazole* (Lansoprazole*) 30 Mg Capsule.dr, 30 MG GTB BID, CAP 11/26/18 Hydrocodone/Acetaminophen ([place] 5-325 Tablet) 1 Each Tablet, 1 EACH GTB Q4H PRN for PAIN, TAB 11/26/18 Polyethylene Glycol* (Miralax*) 17 Gm Powd.pack, 17 GM GTB BID, #60 PACKET 11/26/18 Metoprolol Tartrate* (Lopressor*) 25 Mg Tab, 25 MG GTB BID, #60 TAB 11/26/18 Lisinopril* (Lisinopril*) 5 Mg Tablet, 5 MG GTB DAILY, #30 TAB 11/26/18 Insulin Aspart* (Novolog Insulin Pen*) 100 Unit/Ml Soln, 0 SC .SLIDING SCALE AC, EA INJECT PER SLIDING SCALE; IF 70-150=0unit; 151-200= 2units; 201-250=4units; 251-300=6units; 301-350=8units; 351-400=10units and Call MD, Subcutaneously before meals and at bedtime fo DM. 11/26/18 Insulin Glargine* (Lantus*) 100 Unit/Ml Soln, 5 UNIT SC QHS, #1 VIAL [id number] SQ AT BEDTIME FOR TYPE 2DIABETES MELLITUS WITHOUT COMPLICATIONS 11/26/18 Levetiracetam* (Keppra*) 500 Mg/5 Ml Solution, 100 MG GTB BID for SEIZURE for 30 Days, BOTTLE 11/26/18 Ipratropium-Albuterol (Ipratropium-Albuterol) 0.5-3 Mg/3 Ml Ampul.neb, 3 ML INHALATION Q6, #30 VIAL 11/26/18 Ferrous Sulfate* (Ferrous Sulfate*) 220 Mg/5 Ml Solution, 330 MG PO BID, ML 11/26/18 Epoetin Haroon (Epogen) 10,000 Units/Ml Soln, 05602 UNITS SC QWED for ANEMIA, VIAL 11/26/18 Cyanocobalamin* (Vitamin B-12*) 1,000 Mcg Tablet.sa, 1000 MCG GTB DAILY, TAB 11/26/18 Clonazepam* (Clonazepam*) 0.5 Mg Tablet, 0.5 MG GTB BID, TAB 11/26/18 Cholecalciferol (Vitamin D3) (VITAMIN D-3) 2,000 Unit Capsule, 2000 UNIT GTB DAILY, CAP 11/26/18 Baclofen* (Baclofen*) 10 Mg Tablet, 20 MG GTB TID for MUSCLE SPASM, TAB 11/26/18 Aspirin* (Aspirin* EC) 81 Mg Tablet.dr, 81 MG GTB DAILY, TAB 11/26/18 Amiodarone Hcl* (Amiodarone Hcl*) 200 Mg Tablet, 200 MG GTB BID for ARRHYTMIA, #60 TAB 11/26/18 Zolpidem Tartrate* (Zolpidem Tartrate*) 5 Mg Tablet, 5 MG GTB QHS PRN for INSOMNIA, #30 TAB 11/26/18 Acidophilus-Bulgaricus* (BD Lactinex*) 1 Pkt Packet, 1 PKT GTB BID, PACKET 11/26/18 Zinc Sulfate* (Zinc Sulfate*) 220 Mg Tablet, 220 MG GTB DAILY for 30 Days, #30 TAKE 1 CAPSULE VIA G-TUBE EVERY DAY 11/26/18 Estrogens Conjugated* (Premarin*) 0.45 Mg Tablet, 1.5 MG PO DAILY 02/18/13 Discontinued Reported Medications [Tramadol] No Conflict Check 06/26/13 [Oxybutynin] No Conflict Check 02/18/13 [Furosemide] No Conflict Check 02/18/13 [Atorvastatin] No Conflict Check 02/18/13 [Lorazepam] No Conflict Check 02/18/13 Medications Current Medications IV Flush (NS 10 ml) 10 ml Q8 IV Last administered on 12/03/18at 13:34; Admin Dose 10 ML; Start 11/26/18 at 22:00 Ascorbic Acid (Vitamin C) 500 mg DAILY GTB Last administered on 12/03/18 10:05; Admin Dose 500 MG; Start 11/27/18 at 09:00 Baclofen (Lioresal) 20 mg TID GTB Last administered on 12/03/18 13:33; Admin Dose 20 MG; Start 11/26/18 at 21:00 Cholecalciferol (Vitamin D) 2,000 unit DAILY GTB Last administered on 12/03/18 10:06; Admin Dose 2,000 UNIT; Start 11/27/18 at 09:00 Cyanocobalamin (Vitamin B12) 1,000 mcg DAILY GTB Last administered on 12/03/18 10:05; Admin Dose 1,000 MCG; Start 11/27/18 at 09:00 Miscellaneous Information 1 ea NOTE XX ; Start 11/26/18 at 18:30 Glucose (Glutose) 15 gm Q15M PRN PO DECREASED GLUCOSE; Start 11/26/18 at 18:30 Glucose (Glutose) 22.5 gm Q15M PRN PO DECREASED GLUCOSE; Start 11/26/18 at 18:30 Dextrose (D50w Syringe) 25 ml Q15M PRN IV DECREASED GLUCOSE; Start 11/26/18 at 18:30 Dextrose (D50w Syringe) 50 ml Q15M PRN IV DECREASED GLUCOSE; Start 11/26/18 at 18:30 Glucagon (Glucagen) 1 mg Q15M PRN IM DECREASED GLUCOSE; Start 11/26/18 at 18:30 Glucose (Glutose) 15 gm Q15M PRN BUCCAL DECREASED GLUCOSE; Start 11/26/18 at 18:30 Diagnostic Test (Pha) (Accu-Chek) 1 ea 02 XX Last administered on 11/29/18at 02:11; Admin Dose 1 EA; Start 11/27/18 at 02:00 Insulin Aspart (Novolog Insulin Pen) NOVOLOG *MILD* ALGORI... Q4 SC Last administered on 12/03/18 11:50; Admin Dose 1 UNIT; Start 11/27/18 at 00:00 Collagenase (Santyl) 1 applic PRN PRN TOP .WOUND; Start 11/27/18 at 09:00 Dextrose/Sodium Chloride 1,000 ml @ 70 mls/hr [id number] IV Last administered on 12/03/18 13:33; Admin Dose 70 MLS/HR; Start 11/27/18 at 12:30 Lorazepam (Ativan) 1 mg Q2H PRN IV SEIZURES Last administered on 11/29/18at 14:39; Admin Dose 1 MG; Start 11/27/18 at 18:00 Aspirin (Aspirin) 81 mg DAILY GTB Last administered on 12/03/18at 10:06; Admin Dose 81 MG; Start 11/29/18 at 10:00 Levetiracetam 100 ml @ 400 mls/hr Q12 IVPB Last administered on 12/03/18at 10:04; Admin Dose 400 MLS/HR; Start 11/29/18 at 21:00 Acetaminophen (Tylenol Liquid) 650 mg Q4H PRN GTB MILD PAIN(1-3)OR ELEVATED TEM P; Start 12/03/18 at 02:00 Sodium Hypochlorite (Dakin'S (Dilute )) 1 applic BID IRR ; Start 12/03/18 at 11:24 Assessment/Plan Hospital Course (Demo Recall) 1. Atrial fibrillation/atrial flutter with rapid ventricular response - now in SR - treated - will follow. 2. Hypotension/shock state, likely septic - better now. . 3. History of cardiomyopathy with mildly depressed left ventricular ejection fraction approximately 40% to 45%. Keep euvolemic. 4. History of congestive heart failure, systolic, chronic. 5. Possible pneumonia - on meds, con't anti-bx. 6. Sepsis. 7. Leukocytosis. 8. Anemia requiring transfusions. 9. Hypernatremia. 10. Coagulopathy. 11. Urinary tract infection. ZAHIRA RAJAN MD Dec 03, 2018 13:44
[2018-12-03] MEDS: SODIUM HYPOCHLORITE (1/40) 1 LITER BTL IRR SCH (22:28)
[2018-12-04] VITALS (10 sets, daily range): BP systolic 105–139; BP diastolic 48–62; PULSE 71–91; RESP 14–20
[2018-12-04] MEDS: INSULIN ASPART [NOVOLOG] 3 ML PEN SC SCH ×6 (01:37→21:00)
[2018-12-04] MEDS: ACCU-CHEK XX SCH (01:38)
--- NOTE | 2018-12-04 05:18 | PN ---
Date/Time of Note Date/Time of Note DATE: 12/04/18 TIME: 05:17 Assessment/Plan VTE Prophylaxis Risk score (from [facility])>0 risk: 9 SCD applied (from [facility]): No SCD contraindicated: other Pharmacological prophylaxis: other Pharm contraindication: other Lines/Catheters [facility] PICC Line Central line still needed: Yes Urinary Cath still in place: Yes Reason Cath still needed: urinary retention, pres ulcer contaminated by urine Assessment/Plan Assessment/Plan - SEPSIS -per ID -Atrial fibrillation/ flutter with rapid ventricular response. Patient is currently in sinus rhythm. - Continue amiodarone. Dr. Monson is following in cardiology consultation. -Progressive supranuclear palsy -Respiratory failure with tracheostomy patient is currently on cool aerosol mist. -Chronic encephalopathy -Decubitus ulcer of the right hip and sacrum, status post Girdlestone procedure of the right hip with flap in September 2018, followed by removal of necrotic tissue by Dr. Triplett at [facility]. -Right hip wound infection with OM of R hip, completed treatment with antibio tics. - surgery follows -Wound dehiscence, s/p repeat debridement at [facility] on 11/03/2018. -Diabetes - GLYCEMIC control -Chronic diastolic CHF -Dysphagia with GT - aspiration precautions -Anemia of chronic disease Further recommendations based on clinical course. Plan of care discussed with Dr. Shannon Result Diagram: 12/02/18 0551 12/02/18 0557 Results 24hrs Laboratory Tests Test 12/03/18 06:06 12/03/18 06:15 12/03/18 08:09 12/03/18 11:44 Bedside Glucose 148 141 170 Urine Color YELLOW Urine Clarity CLOUDY A Urine pH 6.0 Urine Specific 1.009 [place] Urine Ketones NEGATIVE Urine Nitrite NEGATIVE Urine Bilirubin NEGATIVE Urine Urobilinogen NEGATIVE Urine Leukocyte 3+ H Esterase Urine Microscopic 125 H RBC Urine Microscopic 76 H WBC Urine Bacteria MANY A Urine Mucus FEW A Urine Yeast MANY A (Budding) Urine Hemoglobin 3+ H Urine Glucose NEGATIVE Urine Total Protein NEGATIVE Test 12/03/18 17:19 12/03/18 21:15 12/04/18 01:29 Bedside Glucose 128 175 174 Subjective 24 Hr Interval Summary Free Text/Dictation NAD afebrile no new issues reported last night SNF placement when stable dw staff Subjective hx not possible: pt non-verbal Constitutional: requiring IVF, requiring O2 Exam/Review of Systems Exam Vitals Vital Signs Date Temp Pulse Resp B/P (MAP) Pulse Ox O2 O2 Flow FiO2 Time Delivery Rate 12/04/18 88 04:00 12/04/18 98.9 20 105/53 97 04:00 (70) 12/03/18 5.0 28 22:56 12/03/18 Aerosol 17:30 T Tube Intake and Output 12/03/18 12/03/18 12/04/18 1515:00 23:00 07:00 IntakeIntake Total 100 ml OutputOutput Total 3300 ml BalanceBalance 100 ml -3300 ml Constitutional: non-verbal, frail Psych: nl mood/affect Head: normocephalic Eyes: nl lids, nl sclera ENMT: nl external ears & nose Neck: supple, other (trach intact) Respiratory: diminished breath sounds Cardiovascular: nl pulses, other (s1s2) Gastrointestinal: soft, other (gt intsact) Musculoskeletal: joint tenderness, muscle weakness, range of motion Extremities: normal pulses Neurological: unresponsive Results Results 24hrs Laboratory Tests Test 12/03/18 06:06 12/03/18 06:15 12/03/18 08:09 12/03/18 11:44 Bedside Glucose 148 141 170 Urine Color YELLOW Urine Clarity CLOUDY A Urine pH 6.0 Urine Specific 1.009 [place] Urine Ketones NEGATIVE Urine Nitrite NEGATIVE Urine Bilirubin NEGATIVE Urine Urobilinogen NEGATIVE Urine Leukocyte 3+ H Esterase Urine Microscopic 125 H RBC Urine Microscopic 76 H WBC Urine Bacteria MANY A Urine Mucus FEW A Urine Yeast MANY A (Budding) Urine Hemoglobin 3+ H Urine Glucose NEGATIVE Urine Total Protein NEGATIVE Test 12/03/18 17:19 12/03/18 21:15 12/04/18 01:29 Bedside Glucose 128 175 174 Medications Medication Current Medications IV Flush (NS 10 ml) 10 ml Q8 IV Last administered on 12/03/18at 22:28; Admin Dose 10 ML; Start 11/26/18 at 22:00 Ascorbic Acid (Vitamin C) 500 mg DAILY GTB Last administered on 12/03/18at 10:05; Admin Dose 500 MG; Start 11/27/18 at 09:00 Baclofen (Lioresal) 20 mg TID GTB Last administered on 12/03/18at 21:13; Admin Dose 20 MG; Start 11/26/18 at 21:00 Cholecalciferol (Vitamin D) 2,000 unit DAILY GTB Last administered on 12/03/18 10:06; Admin Dose 2,000 UNIT; Start 11/27/18 at 09:00 Cyanocobalamin (Vitamin B12) 1,000 mcg DAILY GTB Last administered on 12/03/18 10:05; Admin Dose 1,000 MCG; Start 11/27/18 at 09:00 Miscellaneous Information 1 ea NOTE XX ; Start 11/26/18 at 18:30 Glucose (Glutose) 15 gm Q15M PRN PO DECREASED GLUCOSE; Start 11/26/18 at 18:30 Glucose (Glutose) 22.5 gm Q15M PRN PO DECREASED GLUCOSE; Start 11/26/18 at 18:30 Dextrose (D50w Syringe) 25 ml Q15M PRN IV DECREASED GLUCOSE; Start 11/26/18 at 18:30 Dextrose (D50w Syringe) 50 ml Q15M PRN IV DECREASED GLUCOSE; Start 11/26/18 at 18:30 Glucagon (Glucagen) 1 mg Q15M PRN IM DECREASED GLUCOSE; Start 11/26/18 at 18:30 Glucose (Glutose) 15 gm Q15M PRN BUCCAL DECREASED GLUCOSE; Start 11/26/18 at 18:30 Diagnostic Test (Pha) (Accu-Chek) 1 ea 02 XX Last administered on 11/29/18at 02:11; Admin Dose 1 EA; Start 11/27/18 at 02:00 Insulin Aspart (Novolog Insulin Pen) NOVOLOG *MILD* ALGORI... Q4 SC Last administered on 12/04/18at 01:37; Admin Dose 1 UNIT; Start 11/27/18 at 00:00 Collagenase (Santyl) 1 applic PRN PRN TOP .WOUND; Start 11/27/18 at 09:00 Dextrose/Sodium Chloride 1,000 ml @ 70 mls/hr [id number] IV Last administered on 12/03/18at 13:33; Admin Dose 70 MLS/HR; Start 11/27/18 at 12:30 Lorazepam (Ativan) 1 mg Q2H PRN IV SEIZURES Last administered on 11/29/18 14: 39; Admin Dose 1 MG; Start 11/27/18 at 18:00 Aspirin (Aspirin) 81 mg DAILY GTB Last administered on 12/03/18at 10:06; Admin Dose 81 MG; Start 11/29/18 at 10:00 Levetiracetam 100 ml @ 400 mls/hr Q12 IVPB Last administered on 12/03/18at 21:12; Admin Dose 400 MLS/HR; Start 11/29/18 at 21:00 Acetaminophen (Tylenol Liquid) 650 mg Q4H PRN GTB MILD PAIN(1-3)OR ELEVATED TEMP; Start 12/03/18 at 02:00 Sodium Hypochlorite (Dakin'S (Dilute )) 1 applic BID IRR Last administered on 12/03/18at 22:28; Admin Dose 1 APPLIC; Start 12/03/18 at 11:24 NADEEN CHO December 04, 2018 05:18
[2018-12-04] MEDS: DEXTROSE 5%-0.45% NACL 1,000 ML IV SCH ×3 (05:41→21:35)
--- NOTE | 2018-12-04 09:40 | CONS ---
Assessment/Plan Assessment/Plan Assessment/Plan (Daily) assessment and recommendations; 1. Patient admitted with bilateral pneumonia with significant clinical and radiological improvement. Off antibiotics now. 2. Advanced dementia/encephalopathy. 3. Chronic respiratory failure, doing well on T-piece via tracheostomy. 4. Chronic dysphagia. 5. Chronic atrial fibrillation. 6. Stable seizure disorder. 7. Anemia. Continue current supportive care. Transfer to half-way. Prognosis is poor. Consultation Date/Type/Reason Admit Date/Time Nov 26, 2018 at 20:42 Initial Consult Date 11/27/18 Type of Consult Pulmonary/critical care Requesting Provider: NADEEN CHO Date/Time of Note DATE: 12/04/18 TIME: 09:37 24 HR Interval Summary Free Text/Dictation Patient's condition remains stable. Remains awake but noncommunicative. Has remained hemodynamically stable. General exam; elderly woman, on T-piece via tracheostomy, currently no distress. Exam/Review of Systems Exam Vitals Vital Signs Date Temp Pulse Resp B/P (MAP) Pulse Ox O2 O2 Flow FiO2 Time Delivery Rate 12/04/18 5.0 28 08:44 12/04/18 92 18 95 Aerosol 08:44 T Tube 12/04/18 98.5 117/57 07:40 (77) Intake and Output 12/03/18 12/03/18 12/04/18 1515:00 23:00 07:00 IntakeIntake Total 100 ml 880 ml OutputOutput Total 3300 ml 900 ml BalanceBalance 100 ml -3300 ml -20 ml Exam H ENT exam; supple neck, no JVD. No lymphadenopathy. Midline trachea. No thyromegaly. Patient has fair dentition. Tracheostomy in place. Attached to T-piece. Chest exam; diminished but clear breath sounds. S1-S2 audible, no murmurs. Abdomen exam; soft, no organomegaly. G-tube in place. Bowel sounds are a udible. Extremity exam; no peripheral edema. [employer]STRU[employer]STRU[employer] exam; patient remains noncommunicative. Results Result Diagram: 12/04/18 0611 12/04/18 0611 Results 24hrs Laboratory Tests Test 12/03/18 11:44 12/03/18 17:19 12/03/18 21:15 12/04/18 01:29 Bedside Glucose 170 128 175 174 Test 12/04/18 05:40 12/04/18 06:11 12/04/18 07:54 Bedside Glucose 127 148 White Blood Count 13.3 H Red Blood Count 3.55 L Hemoglobin 9.3 L Hematocrit 29.6 L Mean Corpuscular 83.4 Volume Mean Corpuscular 26.2 L Hemoglobin Mean Corpuscular 31.4 L Hemoglobin Concent Red Cell Distribution 17.4 H Width Platelet Count 356 Mean Platelet Volume 10.5 H Immature Granulocytes 1.700 H % Neutrophils % 79.4 H Lymphocytes % 11.1 L Monocytes % 4.8 Eosinophils % 2.5 Basophils % 0.5 Nucleated Red Blood 0.0 Cells % Immature Granulocytes 0.220 H # Neutrophils # 10.6 H Lymphocytes # 1.5 Monocytes # 0.6 Eosinophils # 0.3 Basophils # 0.1 Nucleated Red Blood 0.0 Cells # Sodium Level 139 Potassium Level 4.3 Chloride Level 106 Carbon Dioxide Level 28 Anion Gap 5 Blood Urea Nitrogen 13 Creatinine 0.28 L Est Glomerular Filtrat Rate mL/min Glucose Level 143 Calcium Level 8.7 Medications Medication Current Medications IV Flush (NS 10 ml) 10 ml Q8 IV Last administered on 12/04/18at 06:14; Admin Dose 10 ML; Start 11/26/18 at 22:00 Ascorbic Acid (Vitamin C) 500 mg DAILY GTB Last administered on 12/03/18at 10:05; Admin Dose 500 MG; Start 11/27/18 at 09:00 Baclofen (Lioresal) 20 mg TID GTB Last administered on 12/03/18at 21:13; Admin Dose 20 MG; Start 11/26/18 at 21:00 Cholecalciferol (Vitamin D) 2,000 unit DAILY GTB Last administered on 12/03/18at 10:06; Admin Dose 2,000 UNIT; Start 11/27/18 at 09:00 Cyanocobalamin (Vitamin B12) 1,000 mcg DAILY GTB Last administered on 12/03/18at 10:05; Admin Dose 1,000 MCG; Start 11/27/18 at 09:00 Miscellaneous Information 1 ea NOTE XX ; Start 11/26/18 at 18:30 Glucose (Glutose) 15 gm Q15M PRN PO DECREASED GLUCOSE; Start 11/26/18 at 18:30 Glucose (Glutose) 22.5 gm Q15M PRN PO DECREASED GLUCOSE; Start 11/26/18 at 18:30 Dextrose (D50w Syringe) 25 ml Q15M PRN IV DECREASED GLUCOSE; Start 11/26/18 at 18:30 Dextrose (D50w Syringe) 50 ml Q15M PRN IV DECREASED GLUCOSE; Start 11/26/18 at 18:30 Glucagon (Glucagen) 1 mg Q15M PRN IM DECREASED GLUCOSE; Start 11/26/18 at 18:30 Glucose (Glutose) 15 gm Q15M PRN BUCCAL DECREASED GLUCOSE; Start 11/26/18 at 18:30 Diagnostic Test (Pha) (Accu-Chek) 1 ea 02 XX Last administered on 11/29/18at 02:11; Admin Dose 1 EA; Start 11/27/18 at 02:00 Insulin Aspart (Novolog Insulin Pen) NOVOLOG *MILD* ALGORI... Q4 SC Last administered on 12/04/18at 08:00; Admin Dose 1 UNIT; Start 11/27/18 at 00:00 Collagenase (Santyl) 1 applic PRN PRN TOP .WOUND; Start 11/27/18 at 09:00 Dextrose/Sodium Chloride 1,000 ml @ 70 mls/hr [id number] IV Last administered on 12/04/18at 05:41; Admin Dose 70 MLS/HR; Start 11/27/18 at 12:30 Lorazepam (Ativan) 1 mg Q2H PRN IV SEIZURES Last administered on 11/29/18at 14:39; Admin Dose 1 MG; Start 11/27/18 at 18:00 Aspirin (Aspirin) 81 mg DAILY GTB Last administered on 12/03/18at 10:06; Admin Dose 81 MG; Start 11/29/18 at 10:00 Levetiracetam 100 ml @ 400 mls/hr Q12 IVPB Last administered on 12/03/18 21:12; Admin Dose 400 MLS/HR; Start 11/29/18 at 21:00 Acetaminophen (Tylenol Liquid) 650 mg Q4H PRN GTB MILD PAIN(1-3)OR ELEVATED TEMP; Start 12/03/18 at 02:00 Sodium Hypochlorite (Dakin'S (Dilute )) 1 applic BID IRR Last administered on 12/03/18at 22:28; Admin Dose 1 APPLIC; Start 12/03/18 at 11:24 LINH TJEADA December 04, 2018 09:40
[2018-12-04] MEDS: ASPIRIN 81 MG TAB GTB SCH (09:42)
[2018-12-04] MEDS: CHOLECALCIFEROL 2,000 UNIT CAP GTB SCH (09:43)
[2018-12-04] MEDS: BACLOFEN 10 MG TAB GTB SCH ×3 (09:43→21:33)
[2018-12-04] MEDS: CYANOCOBALAMIN 500 MCG TAB GTB SCH (09:43)
[2018-12-04] MEDS: LEVETIRACETAM 1000 MG (PMX) 100 ML IVPB SCH ×2 (09:43→21:34)
[2018-12-04] MEDS: SODIUM HYPOCHLORITE (1/40) 1 LITER BTL IRR SCH ×2 (09:43→21:35)
[2018-12-04] MEDS: ASCORBIC ACID 500 MG TAB GTB SCH (09:43)
[2018-12-04] MEDS: BALSAM PERU/CASTOR OIL 60 GM TUBE TOP SCH (09:43)
--- NOTE | 2018-12-04 13:23 | CONS ---
Assessment/Plan Assessment/Plan Hospital Course (Demo Recall) # sepsis, endovascular infection, respiratory - intermittent leukocytosis - s/p septic shock due to probable UTI - s/p coag negative Staph in blood cultures on 11/26/2018, probable contaminant - colonization of the airway by pseudomonas and corynebacteria - h/o sepsis due to bacteremia and pneumonia - h/o bacteremia: blood cultures grew enterococcus faecalis on 09/17/2018 secondary to R hip wound infection as its wound culture on 09/16/2018 grew E. faecalis as well - h/o recurrent acute on chronic hypoxemic respiratory failure secondary to secretion retention, mucous plugging, major left lung atelectasis, severe shunting - h/o probable aspiration pneumonia. - h/o pneumonia due to pseudomonas on 09/30/2018. s/p Levaquin (10/03/18- 10/07/2018), Meropenem (restart 09/30/2018-10/03/18, 10/12/18 - 10/19/2018) and empiric Amikacin (09/30/18-10/03/18) - H/o intubation on 09/30/2018 - H/o tracheostomy on 10/04/2018 - h/o pseudomonas in urine culture on 09/17/2018 with mild pyuria; treated with Cefepime (09/20/2018-09/25/2018) # infection of wound, OM of R hip - colonization of the wound of R hip by pseudomonas (wound culture on 10/31/2018), acinetobacter (wound culture on 11/27/2018) - h/o repeat debridement at [facility] on 11/03/[address]. [address] Pierson, her plastic surgeon at [facility], the wound appeared clean during the I&D (my conversation with him on 11/06/2018) - H/o stage sacral decubitus ulcer extending to bilateral buttocks. She reportedly had total hip dislocation and exposed femoral head. CT pelvis showed e/o OM. Pt complete IV vancomycin (09/17/2018-10/29/2018) for sacral OM associated with E. faecalis - H/o sharp excisional debridement down to and including bone of the sacrum on 08/22/2018 and 09/19/2018 - H/o excision of R hip ulcer, girdlestone resection arthroplasty and flap reconstruction 09/23/2018. The surgical pathology showed osteomyelitis of R hip bone, soft tissue cellulitis, and bony margin of excision was free of the disease - according to Dr. Pierson who performed the wound debridement, Pt needs wound care until granulation tissue builds and infection is cleared. Then he would decide if Pt should get repeat closure or not - XR of R hip on 11/09/2009 showed the remaining R femoral shaft in transverse orientation and with lateral deviation - h/o removal of devitalized/necrotic tissue by Dr. Pierson on 10/07/2018 # renal/ - funguria, recurrent - s/p probable UTI (hematuria on 11/26/2018) due to acinetobacter - h/o moderate L hydronephrosis per renal US # heme, neuro - h/o acute on chronic anemia requiring PRBC - chronic metabolic encephalopathy - supranuclear palsy # endo, cardiac - diabetes mellitus - A fib with RVR - chronic diastolic HF (EF 40-45% with grade 1 DD per 2D Echo 10/24/2018) - h/o hypertension # allergy - penicillin allergy (throat swelling) but Pt tolerates cefepime, ceftazidime, meropenem recommendations: - change the Ramires catheter again and start 3 day course of fluconazole (12/04- 12/06/2018). I recommend antifungal because fuguria persists despite changing her Ramires catheter management d/w Pt's JAY Duque Consultation Date/Type/Reason Admit Date/Time Nov 26, 2018 at 20:42 Initial Consult Date 11/26/18 Type of Consult ID Requesting Provider: NADEEN CHO Date/Time of Note DATE: 12/04/18 TIME: 12:59 24 HR Interval Summary Subjective hx not possible: pt non-verbal Exam/Review of Systems Exam Vitals Vital Signs Date Temp Pulse Resp B/P (MAP) Pulse Ox O2 O2 Flow FiO2 Time Delivery Rate 12/04/18 98.6 86 15 139/53 95 Trach 11:55 (81) Collar 12/04/18 5.0 28 08:44 Intake and Output 12/03/18 12/03/18 12/04/18 1414:59 22:59 06:59 IntakeIntake Total 100 ml 880 ml OutputOutput Total 3300 ml 900 ml BalanceBalance 100 ml -3300 ml -20 ml Constitutional: non-verbal, frail Psych: confusion Head: normocephalic, atraumatic Eyes: nl conjunctiva, nl lids, nl sclera ENMT: nl external ears & nose, nl nasal mucosa & septum, mucosa pink and moist Neck: other (trach) Respiratory: diminished breath sounds Cardiovascular: regular rate and rhythm Gastrointestinal: soft, non-tender, other (GT) Genitourinary - Female: other (FC) Musculoskeletal: other (contractured) Extremities: No edema Neurological: unresponsive Skin: rash or lesions (+R hip wound is clean with exposed femur) Results Result Diagram: 12/04/18 0611 12/04/18 0611 Results 24hrs Laboratory Tests Test 12/03/18 17:19 12/03/18 21:15 12/04/18 01:29 12/04/18 05:40 Bedside Glucose 128 175 174 127 Test 12/04/18 06:11 12/04/18 07:54 12/04/18 12:24 White Blood Count 13.3 H Red Blood Count 3.55 L Hemoglobin 9.3 L Hematocrit 29.6 L Mean Corpuscular 83.4 Volume Mean Corpuscular 26.2 L Hemoglobin Mean Corpuscular 31.4 L Hemoglobin Concent Red Cell Distribution 17.4 H Width Platelet Count 356 Mean Platelet Volume 10.5 H Immature Granulocytes 1.700 H % Neutrophils % 79.4 H Lymphocytes % 11.1 L Monocytes % 4.8 Eosinophils % 2.5 Basophils % 0.5 Nucleated Red Blood 0.0 Cells % Immature Granulocytes 0.220 H # Neutrophils # 10.6 H Lymphocytes # 1.5 Monocytes # 0.6 Eosinophils # 0.3 Basophils # 0.1 Nucleated Red Blood 0.0 Cells # Sodium Level 139 Potassium Level 4.3 Chloride Level 106 Carbon Dioxide Level 28 Anion Gap 5 Blood Urea Nitrogen 13 Creatinine 0.28 L Est Glomerular Filtrat Rate mL/min Glucose Level 143 Calcium Level 8.7 Bedside Glucose 148 145 Medications Medication Current Medications IV Flush (NS 10 ml) 10 ml Q8 IV Last administered on 12/04/18at 06:14; Admin Dose 10 ML; Start 11/26/18 at 22:00 Ascorbic Acid (Vitamin C) 500 mg DAILY GTB Last administered on 12/04/18at 09:43; Admin Dose 500 MG; Start 11/27/18 at 09:00 Baclofen (Lioresal) 20 mg TID GTB Last administered on 12/04/18 09:43; Admin Dose 20 MG; Start 11/26/18 at 21:00 Cholecalciferol (Vitamin D) 2,000 unit DAILY GTB Last administered on 12/04/18 09:43; Admin Dose 2,000 UNIT; Start 11/27/18 at 09:00 Cyanocobalamin (Vitamin B12) 1,000 mcg DAILY GTB Last administered on 12/04/18 09:43; Admin Dose 1,000 MCG; Start 11/27/18 at 09:00 Miscellaneous Information 1 ea NOTE XX ; Start 11/26/18 at 18:30 Glucose (Glutose) 15 gm Q15M PRN PO DECREASED GLUCOSE; Start 11/26/18 at 18:30 Glucose (Glutose) 22.5 gm Q15M PRN PO DECREASED GLUCOSE; Start 11/26/18 at 18:30 Dextrose (D50w Syringe) 25 ml Q15M PRN IV DECREASED GLUCOSE; Start 11/26/18 at 18:30 Dextrose (D50w Syringe) 50 ml Q15M PRN IV DECREASED GLUCOSE; Start 11/26/18 at 18:30 Glucagon (Glucagen) 1 mg Q15M PRN IM DECREASED GLUCOSE; Start 11/26/18 at 18:30 Glucose (Glutose) 15 gm Q15M PRN BUCCAL DECREASED GLUCOSE; Start 11/26/18 at 18:30 Diagnostic Test (Pha) (Accu-Chek) 1 ea 02 XX Last administered on 11/29/18at 02:11; Admin Dose 1 EA; Start 11/27/18 at 02:00 Insulin Aspart (Novolog Insulin Pen) NOVOLOG *MILD* ALGORI... Q4 SC Last administered on 12/04/18at 12:30; Admin Dose 1 UNIT; Start 11/27/18 at 00:00 Collagenase (Santyl) 1 applic PRN PRN TOP .WOUND; Start 11/27/18 at 09:00 Dextrose/Sodium Chloride 1,000 ml @ 70 mls/hr [id number] IV Last administered on 12/04/18 05:41; Admin Dose 70 MLS/HR; Start 11/27/18 at 12:30 Lorazepam (Ativan) 1 mg Q2H PRN IV SEIZURES Last administered on 11/29/18at 14 :39; Admin Dose 1 MG; Start 11/27/18 at 18:00 Aspirin (Aspirin) 81 mg DAILY GTB Last administered on 12/04/18 09:42; Admin Dose 81 MG; Start 11/29/18 at 10:00 Levetiracetam 100 ml @ 400 mls/hr Q12 IVPB Last administered on 12/04/18 09:43; Admin Dose 400 MLS/HR; Start 11/29/18 at 21:00 Acetaminophen (Tylenol Liquid) 650 mg Q4H PRN GTB MILD PAIN(1-3)OR ELEVATED TEMP; Start 12/03/18 at 02:00 Sodium Hypochlorite (Dakin'S (Dilute )) 1 applic BID IRR Last administered on 12/04/18 09:43; Admin Dose 1 APPLIC; Start 12/03/18 at 11:24 IRWIN SKELTON M.D. December 04, 2018 13:09
--- NOTE | 2018-12-04 15:54 | CONS ---
Assessment/Plan Assessment/Plan Hospital Course 73 yo F with PSP and multiple other comorbidities who is admitted to the [facility] ICU for management of presumed septic shock. On 11/27, she was noted to have new onset seizures... for which neurology is consulted. On 11/29, she was noted to have a recurrence of the same.. The clinical picture could be consistent with epilepsy... Meningoencephalitis is less likely.. MRI brain is reassuringly negative for acute intracranial pathology...though notable for volume loss/ventriculomegaly. EEG was without epileptiform activity.. P: Cont Keppra maintenance 1g BID for now Ativan IV PRN prolonged seizure >5 min or for cluster Supportive care and other medical management per primary Will follow clinically Consultation Date/Type/Reason Admit Date/Time Nov 26, 2018 at 20:42 Type of Consult Neurology Requesting Provider: NADEEN CHO Date/Time of Note DATE: 12/04/18 TIME: 15:54 24 HR Interval Summary Free Text/Dictation Continues acute care. No seizures or changes in pt condition reported. Exam Vital Signs Vitals Vital Signs Date Temp Pulse Resp B/P (MAP) Pulse Ox O2 O2 Flow FiO2 Time Delivery Rate 12/04/18 97.8 82 15 108/62 96 Trach 15:30 (77) Collar 12/04/18 5.0 28 14:40 Intake and Output 12/03/18 12/03/18 12/04/18 1515:00 23:00 07:00 IntakeIntake Total 100 ml 880 ml OutputOutput Total 3300 ml 900 ml BalanceBalance 100 ml -3300 ml -20 ml Exam PE: Gen Appearance: No Apparent Distress HEENT: Trach; on t-bar Cardiovascular: Regular rate Abdomen: Soft; PEG Extremities: Dry; BL wrists contracted NE: The patient was obtunded and nonverbal. Opens eyes to noxious stimuli. Does not track or follow any commands. Cranial nerve examination was limited by mental status. Pupils were equal and reactive to light. There was no afferent pupillary defect. Funduscopic examination was limited. Face was grossly symmetric, w/ present corneal and cough reflexes. Tone was spastic in the UE. Muscle bulk was diminished. I did not see fasciculations. The patient withdrew to noxious stimulation x 4. Coordination and gait testing was limited by mental status. Arm and leg reflexes were within normal limits and symmetric. Garza's sign was absent. Plantar responses were flexor. TINO PRINCE NP December 04, 2018 15:54
--- NOTE | 2018-12-04 16:28 | CONS ---
Assessment/Plan Assessment/Plan Hospital Course (Demo Recall) IMPRESSION: 1. Atrial fibrillation/atrial flutter with rapid ventricular response-now in SR 2. Hypotension/shock state, likely septic. 3. History of cardiomyopathy with mildly depressed left ventricular ejection fraction approximately 40% to 45%. 4. History of congestive heart failure, systolic, chronic. 5. Possible pneumonia. 6. Sepsis. 7. Leukocytosis. 8. Anemia requiring transfusions. 9. Hypernatremia. 10. Coagulopathy. 11. Urinary tract infection. Recc: -Tele -serial ecg's -Continue abx's and f/u cx data -Continue keppra -Now on asa, follow for any bleeding complications -systemic anticoag held due to anemia requiring transfusions Consultation Date/Type/Reason Admit Date/Time Nov 26, 2018 at 20:42 Initial Consult Date 11/27/18 Type of Consult Cardiology Reason for Consultation AF Requesting Provider: NADEEN CHO Date/Time of Note DATE: 12/04/18 TIME: 16:25 Exam/Review of Systems Vital Signs Vitals Vital Signs Date Temp Pulse Resp B/P (MAP) Pulse Ox O2 O2 Flow FiO2 Time Delivery Rate 12/04/18 97.8 82 15 108/62 96 Trach 15:30 (77) Collar 12/04/18 5.0 28 14:40 Intake and Output 12/03/18 12/03/18 12/04/18 1414:59 22:59 06:59 IntakeIntake Total 100 ml 880 ml OutputOutput Total 3300 ml 900 ml BalanceBalance 100 ml -3300 ml -20 ml Exam Exam Review of Systems: CONSTITUTIONAL: No fevers, chills. PULMONARY: No sob CARDIOVASCULAR: No chest pain/palpitations GASTROINTESTINAL: No nausea/vomiting. GENITOURINARY: No hematuria/dysuria. MUSCULOSKELETAL: No myagias/arthalgias. PSYCHIATRIC: The patient denies depression. NEUROLOGIC: No weakness Constitutional: other (nonresponsive) Psych: no complaints Head: normocephalic ENMT: mucosa pink and moist Neck: supple, jvd (9 cm water) Cardiovascular: regular rate and rhythm Gastrointestinal: soft, non-tender Musculoskeletal: muscle tone (normal) Extremities: edema (none) Neurological: other (No focal deficits) Labs Result Diagram: 12/04/1861012/04/18610 Results 24hrs Laboratory Tests Test 4/30/19 17:19 12/03/18 21:15 12/04/18 01:29 12/04/18 05:40 Bedside Glucose 128 175 174 127 Test 12/04/18 06:11 12/04/18 07:54 12/04/18 12:24 White Blood Count 13.3 H Red Blood Count 3.55 L Hemoglobin 9.3 L Hematocrit 29.6 L Mean Corpuscular 83.4 Volume Mean Corpuscular 26.2 L Hemoglobin Mean Corpuscular 31.4 L Hemoglobin Concent Red Cell Distribution 17.4 H Width Platelet Count 356 Mean Platelet Volume 10.5 H Immature Granulocytes 1.700 H % Neutrophils % 79.4 H Lymphocytes % 11.1 L Monocytes % 4.8 Eosinophils % 2.5 Basophils % 0.5 Nucleated Red Blood 0.0 Cells % Immature Granulocytes 0.220 H # Neutrophils # 10.6 H Lymphocytes # 1.5 Monocytes # 0.6 Eosinophils # 0.3 Basophils # 0.1 Nucleated Red Blood 0.0 Cells # Sodium Level 139 Potassium Level 4.3 Chloride Level 106 Carbon Dioxide Level 28 Anion Gap 5 Blood Urea Nitrogen 13 Creatinine 0.28 L Est Glomerular Filtrat Rate mL/min Glucose Level 143 Calcium Level 8.7 Bedside Glucose 148 145 Medications Medications Current Medications IV Flush (NS 10 ml) 10 ml Q8 IV Last administered on 12/04/18 06:14; Admin Dose 10 ML; Start 11/26/18 at 22:00 Ascorbic Acid (Vitamin C) 500 mg DAILY GTB Last administered on 12/04/18at 09:43; Admin Dose 500 MG; Start 11/27/18 at 09:00 Baclofen (Lioresal) 20 mg TID GTB Last administered on 12/04/18 09:43; Admin Dose 20 MG; Start 11/26/18 at 21:00 Cholecalciferol (Vitamin D) 2,000 unit DAILY GTB Last administered on 12/04/18 09:43; Admin Dose 2,000 UNIT; Start 11/27/18 at 09:00 Cyanocobalamin (Vitamin B12) 1,000 mcg DAILY GTB Last administered on 12/04/18 09:43; Admin Dose 1,000 MCG; Start 11/27/18 at 09:00 Miscellaneous Information 1 ea NOTE XX ; Start 11/26/18 at 18:30 Glucose (Glutose) 15 gm Q15M PRN PO DECREASED GLUCOSE; Start 11/26/18 at 18:30 Glucose (Glutose) 22.5 gm Q15M PRN PO DECREASED GLUCOSE; Start 11/26/18 at 18:30 Dextrose (D50w Syringe) 25 ml Q15M PRN IV DECREASED GLUCOSE; Start 11/26/18 at 18:30 Dextrose (D50w Syringe) 50 ml Q15M PRN IV DECREASED GLUCOSE; Start 11/26/18 at 18:30 Glucagon (Glucagen) 1 mg Q15M PRN IM DECREASED GLUCOSE; Start 11/26/18 at 18:30 Glucose (Glutose) 15 gm Q15M PRN BUCCAL DECREASED GLUCOSE; Start 11/26/18 at 18:30 Diagnostic Test (Pha) (Accu-Chek) 1 ea 02 XX Last administered on 11/29/18at 02 :11; Admin Dose 1 EA; Start 11/27/18 at 02:00 Insulin Aspart (Novolog Insulin Pen) NOVOLOG *MILD* ALGORI... Q4 SC Last administered on 12/04/18at 12:30; Admin Dose 1 UNIT; Start 11/27/18 at 00:00 Collagenase (Santyl) 1 applic PRN PRN TOP .WOUND; Start 11/27/18 at 09:00 Dextrose/Sodium Chloride 1,000 ml @ 70 mls/hr [id number] IV Last administered on 12/04/18at 05:41; Admin Dose 70 MLS/HR; Start 11/27/18 at 12:30 Lorazepam (Ativan) 1 mg Q2H PRN IV SEIZURES Last administered on 11/29/18at 14:39; Admin Dose 1 MG; Start 11/27/18 at 18:00 Aspirin (Aspirin) 81 mg DAILY GTB Last administered on 12/04/18 09:42; Admin Dose 81 MG; Start 11/29/18 at 10:00 Levetiracetam 100 ml @ 400 mls/hr Q12 IVPB Last administered on 12/04/18 09:43; Admin Dose 400 MLS/HR; Start 11/29/18 at 21:00 Acetaminophen (Tylenol Liquid) 650 mg Q4H PRN GTB MILD PAIN(1-3)OR ELEVATED TEMP; Start 12/03/18 at 02:00 Sodium Hypochlorite (Dakin'S (Dilute )) 1 applic BID IRR Last administered on 12/04/18at 09:43; Admin Dose 1 APPLIC; Start 12/03/18 at 11:24 Fluconazole (Diflucan) 200 mg DAILY GTB ; Start 12/04/18 at 13:30; Stop 12/07/18 at 13:29 MAITE VAZQUEZ December 04, 2018 16:28
[2018-12-04] MEDS: FLUCONAZOLE 200 MG TAB GTB SCH (17:17)
[2018-12-05] VITALS (12 sets, daily range): BP systolic 107–137; BP diastolic 50–63; PULSE 65–92; RESP 15–19
[2018-12-05] MEDS: ACCU-CHEK XX SCH (02:00)
[2018-12-05] MEDS: INSULIN ASPART [NOVOLOG] 3 ML PEN SC SCH ×5 (02:05→17:28)
[2018-12-05] MEDS: DEXTROSE 5%-0.45% NACL 1,000 ML IV SCH ×2 (06:07→11:56)
[2018-12-05] MEDS: ASCORBIC ACID 500 MG TAB GTB SCH (09:28)
[2018-12-05] MEDS: LEVETIRACETAM 1000 MG (PMX) 100 ML IVPB SCH ×2 (09:28→22:01)
[2018-12-05] MEDS: CYANOCOBALAMIN 500 MCG TAB GTB SCH (09:29)
[2018-12-05] MEDS: FLUCONAZOLE 200 MG TAB GTB SCH (09:29)
[2018-12-05] MEDS: BACLOFEN 10 MG TAB GTB SCH ×3 (09:29→22:02)
[2018-12-05] MEDS: CHOLECALCIFEROL 2,000 UNIT CAP GTB SCH (09:29)
[2018-12-05] MEDS: SODIUM HYPOCHLORITE (1/40) 1 LITER BTL IRR SCH ×2 (09:29→21:50)
[2018-12-05] MEDS: ASPIRIN 81 MG TAB GTB SCH (09:29)
[2018-12-05] MEDS: BALSAM PERU/CASTOR OIL 60 GM TUBE TOP SCH (11:56)
--- NOTE | 2018-12-05 13:16 | CONS ---
[facility] Name: Brenda Willingham Unit Number: [id number] Date of : 1945 Patient Status: Admitted Inpatient Attending Doctor: Nirmal Shannon MD Edit: IRWIN PINA M.D. on 12/05/18 @ 20:27 Silvana: I discussed the management with MANUEL Chand and agree Assessment/Plan Assessment/Plan Hospital Course (Demo Recall) # sepsis, endovascular infection, respiratory - intermittent leukocytosis - s/p septic shock due to probable UTI - s/p coag negative Staph in blood cultures on 11/26/2018, probable contaminant - colonization of the airway by pseudomonas and corynebacteria - h/o sepsis due to bacteremia and pneumonia - h/o bacteremia: blood cultures grew enterococcus faecalis on 09/17/2018 secondary to R hip wound infection as its wound culture on 09/16/2018 grew E. faecalis as well - h/o recurrent acute on chronic hypoxemic respiratory failure secondary to secretion retention, mucous plugging, major left lung atelectasis, severe shunting - h/o probable aspiration pneumonia. - h/o pneumonia due to pseudomonas on 09/30/2018. s/p Levaquin (10/03/18- 10/07/2018), Meropenem (restart 09/30/2018-10/03/18, 10/12/18 - 10/19/2018) and empiric Amikacin (09/30/18-10/03/18) - H/o intubation on 09/30/2018 - H/o tracheostomy on 10/04/2018 - h/o pseudomonas in urine culture on 09/17/2018 with mild pyuria; treated with Cefepime (09/20/2018-09/25/2018) # infection of wound, OM of R hip - colonization of the wound of R hip by pseudomonas (wound culture on 10/31/2018), acinetobacter (wound culture on 11/27/2018) - h/o repeat debridement at [facility] on 11/03/[address]. [address] Pierson, her plastic surgeon at [facility], the wound appeared clean during the I&D (my conversation with him on 11/06/2018) - H/o stage sacral decubitus ulcer extending to bilateral buttocks. She reportedly had total hip dislocation and exposed femoral head. CT pelvis showed e/o OM. Pt complete IV vancomycin (09/17/2018-10/29/2018) for sacral OM associated with E. faecalis - H/o sharp excisional debridement down to and including bone of the sacrum on 08/22/2018 and 09/19/2018 - H/o excision of R hip ulcer, girdlestone resection arthroplasty and flap reconstruction 09/23/2018. The surgical pathology showed osteomyelitis of R hip bone, soft tissue cellulitis, and bony margin of excision was free of the disease - according to Dr. Pierson who performed the wound debridement, Pt needs wound care until granulation tissue builds and infection is cleared. Then he would decide if Pt should get repeat closure or not - XR of R hip on 11/09/2009 showed the remaining R femoral shaft in transverse orientation and with lateral deviation - h/o removal of devitalized/necrotic tissue by Dr. Pierson on 10/07/2018 # renal/ - funguria, recurrent - s/p probable UTI (hematuria on 11/26/2018) due to acinetobacter - h/o moderate L hydronephrosis per renal US # heme, neuro - h/o acute on chronic anemia requiring PRBC - chronic metabolic encephalopathy - supranuclear palsy # endo, cardiac - diabetes mellitus - s/p A fib with RVR - chronic diastolic HF (EF 40-45% with grade 1 DD per 2D Echo 10/24/2018) - h/o hypertension # allergy - penicillin allergy (throat swelling) but Pt tolerates cefepime, ceftazidime, meropenem recommendations: - Ramires changed this AM. - continue 3 day course of fluconazole (12/04/2018-12/06/2018). We recommend antifungal because funguria persists despite changing her Ramires catheter Management d/w Dr. Pina Consultation Date/Type/Reason Admit Date/Time Nov 26, 2018 at 20:42 Initial Consult Date 11/27/18 Type of Consult Infectious Disease Requesting Provider: NADEEN CHO Date/Time of Note DATE: 12/05/18 TIME: 13:14 24 HR Interval Summary Free Text/Dictation Chart reviewed. Ike changed this AM. Remains afebrile. Subjective hx not possible: pt non-verbal Exam/Review of Systems Exam Vitals Vital Signs Date Temp Pulse Resp B/P (MAP) Pulse Ox O2 O2 Flow FiO2 Time Delivery Rate 12/05/18 98.0 80 15 115/61 96 Trach 11:38 (79) Collar 12/05/18 5.0 28 05:36 Intake and Output 12/04/18 12/04/18 12/05/18 1414:59 22:59 06:59 IntakeIntake Total 100 ml 100 ml 750 ml OutputOutput Total 2000 ml 2800 ml BalanceBalance 100 ml -1900 ml -2050 ml Exam Constitutional: well developed, non-verbal, frail, other (chronically debilitated) Psych: other (unable to assess) Head: normocephalic, atraumatic Eyes: nl conjunctiva, nl lids, nl sclera ENMT: nl external ears & nose, nl nasal mucosa & septum, other (Limited exam of OP - MM pink and dry with fair hygiene) Neck: other (trach with T-piece) Respiratory: diminished breath sounds Cardiovascular: regular rate and rhythm, nl pulses Gastrointestinal: soft, non-tender, other (+G-tube c/d/i) Genitourinary - Female: other (+Ramires) Musculoskeletal: other (large wound on R hip with exposed femur - photos noted in chart; wound appears clean) Extremities: normal pulses, other (contractures to all 4 extremities); No edema Neurological: unresponsive (obtunded) Skin: other (blanching erythema of bilateral upper thighs; photos of wounds and nurses notes reviewed) Results Result Diagram: 12/05/1818 12/05/1818 Results 24hrs Laboratory Tests Test 12/04/18 17:23 12/04/18 21:32 12/05/18 01:25 12/05/18 04:22 Bedside Glucose 152 138 163 173 Test 12/05/18 06:18 12/05/18 09:44 White Blood Count 13.0 H Red Blood Count 3.25 L Hemoglobin 8.5 L Hematocrit 27.5 L Mean Corpuscular Volume 84.6 Mean Corpuscular 26.2 L Hemoglobin Mean Corpuscular 30.9 L Hemoglobin Concent Red Cell Distribution 17.4 H Width Platelet Count 361 Mean Platelet Volume 10.6 H Immature Granulocytes % 0.900 H Neutrophils % 82.9 H Lymphocytes % 9.3 L Monocytes % 4.1 Eosinophils % 2.4 Basophils % 0.4 Nucleated Red Blood 0.0 Cells % Immature Granulocytes # 0.120 H Neutrophils # 10.8 H Lymphocytes # 1.2 Monocytes # 0.5 Eosinophils # 0.3 Basophils # 0.1 Nucleated Red Blood 0.0 Cells # Sodium Level 138 Potassium Level 4.6 Chloride Level 105 Carbon Dioxide Level 29 Anion Gap 4 L Blood Urea Nitrogen 12 Creatinine 0.29 L Est Glomerular Filtrat Rate mL/min Glucose Level 149 Calcium Level 8.8 Bedside Glucose 146 Medications Medication Current Medications IV Flush (NS 10 ml) 10 ml Q8 IV Last administered on 12/05/18at 06:06; Admin Dose 10 ML; Start 11/26/18 at 22:00 Ascorbic Acid (Vitamin C) 500 mg DAILY GTB Last administered on 12/05/18at 09:28; Admin Dose 500 MG; Start 11/27/18 at 09:00 Baclofen (Lioresal) 20 mg TID GTB Last administered on 12/05/18at 13:10; Admin Dose 20 MG; Start 11/26/18 at 21:00 Cholecalciferol (Vitamin D) 2,000 unit DAILY GTB Last administered on 12/05/18 09:29; Admin Dose 2,000 UNIT; Start 11/27/18 at 09:00 Cyanocobalamin (Vitamin B12) 1,000 mcg DAILY GTB Last administered on 12/05/18 09:29; Admin Dose 1,000 MCG; Start 11/27/18 at 09:00 Miscellaneous Information 1 ea NOTE XX ; Start 11/26/18 at 18:30 Glucose (Glutose) 15 gm Q15M PRN PO DECREASED GLUCOSE; Start 11/26/18 at 18:30 Glucose (Glutose) 22.5 gm Q15M PRN PO DECREASED GLUCOSE; Start 11/26/18 at 18:30 Dextrose (D50w Syringe) 25 ml Q15M PRN IV DECREASED GLUCOSE; Start 11/26/18 at 18:30 Dextrose (D50w Syringe) 50 ml Q15M PRN IV DECREASED GLUCOSE; Start 11/26/18 at 18:30 Glucagon (Glucagen) 1 mg Q15M PRN IM DECREASED GLUCOSE; Start 11/26/18 at 18:30 Glucose (Glutose) 15 gm Q15M PRN BUCCAL DECREASED GLUCOSE; Start 11/26/18 at 18:30 Diagnostic Test (Pha) (Accu-Chek) 1 ea 02 XX Last administered on 11/29/18 02: 11; Admin Dose 1 EA; Start 11/27/18 at 02:00 Insulin Aspart (Novolog Insulin Pen) NOVOLOG *MILD* ALGORI... Q4 SC Last administered on 12/05/18 09:54; Admin Dose 1 UNIT; Start 11/27/18 at 00:00 Collagenase (Santyl) 1 applic PRN PRN TOP .WOUND; Start 11/27/18 at 09:00 Dextrose/Sodium Chloride 1,000 ml @ 70 mls/hr [id number] IV Last administered on 12/05/18 11:56; Admin Dose 70 MLS/HR; Start 11/27/18 at 12:30 Lorazepam (Ativan) 1 mg Q2H PRN IV SEIZURES Last administered on 11/29/18 14:39; Admin Dose 1 MG; Start 11/27/18 at 18:00 Aspirin (Aspirin) 81 mg DAILY GTB Last administered on 12/05/18 09:29; Admin Dose 81 MG; Start 11/29/18 at 10:00 Levetiracetam 100 ml @ 400 mls/hr Q12 IVPB Last administered on 12/05/18 09:28; Admin Dose 400 MLS/HR; Start 11/29/18 at 21:00 Acetaminophen (Tylenol Liquid) 650 mg Q4H PRN GTB MILD PAIN(1-3)OR ELEVATED TEMP; Start 12/03/18 at 02:00 Sodium Hypochlorite (Dakin'S (Dilute )) 1 applic BID IRR Last administered on 12/05/18 09:29; Admin Dose 1 APPLIC; Start 12/03/18 at 11:24 Fluconazole (Diflucan) 200 mg DAILY GTB Last administered on 5/2/19at 09:29; Admin Dose 200 MG; Start 12/04/18 at 13:30; Stop 12/07/18 at 13:29 CONOR CHAND NP December 05, 2018 13:16
--- NOTE | 2018-12-05 14:04 | CONS ---
Assessment/Plan Assessment/Plan Hospital Course (Demo Recall) IMPRESSION: 1. Atrial fibrillation/atrial flutter with rapid ventricular response-now in SR 2. Hypotension/shock state, likely septic. 3. History of cardiomyopathy with mildly depressed left ventricular ejection fraction approximately 40% to 45%. 4. History of congestive heart failure, systolic, chronic. 5. Possible pneumonia. 6. Sepsis. 7. Leukocytosis. 8. Anemia requiring transfusions. 9. Hypernatremia. 10. Coagulopathy. 11. Urinary tract infection. Recc: -Tele -serial ecg's -Continue abx's and f/u cx data -Continue keppra -Now on asa, follow for any bleeding complications -systemic anticoag held due to anemia requiring transfusions Consultation Date/Type/Reason Admit Date/Time Nov 26, 2018 at 20:42 Initial Consult Date 11/27/18 Type of Consult Cardiology Reason for Consultation AF Requesting Provider: NADEEN CHO Date/Time of Note DATE: 12/05/18 TIME: 14:02 Exam/Review of Systems Vital Signs Vitals Vital Signs Date Temp Pulse Resp B/P (MAP) Pulse Ox O2 O2 Flow FiO2 Time Delivery Rate 12/05/18 98.0 80 15 115/61 96 Trach 11:38 (79) Collar 12/05/18 5.0 28 05:36 Intake and Output 12/04/18 12/04/18 12/05/18 1414:59 22:59 06:59 IntakeIntake Total 100 ml 100 ml 750 ml OutputOutput Total 2000 ml 2800 ml BalanceBalance 100 ml -1900 ml -2050 ml Exam Exam Review of Systems: CONSTITUTIONAL: No fevers, chills. PULMONARY: No sob CARDIOVASCULAR: No chest pain/palpitations GASTROINTESTINAL: No nausea/vomiting. GENITOURINARY: No hematuria/dysuria. MUSCULOSKELETAL: No myagias/arthalgias. PSYCHIATRIC: The patient denies depression. NEUROLOGIC: encephalopathic Constitutional: other (encephalopathic) Psych: no complaints Head: normocephalic ENMT: mucosa pink and moist Neck: supple, jvd (9 cm water) Respiratory: diminished breath sounds Cardiovascular: irregular rhythm Gastrointestinal: soft, non-tender Musculoskeletal: muscle weakness (generalized) Extremities: other (contracted) Neurological: other (posturing) Labs Result Diagram: 5/2/19 0618 5/2/19 0618 Results 24hrs Laboratory Tests Test 12/04/18 17:23 12/04/18 21:32 12/05/18 01:25 12/05/18 04:22 Bedside Glucose 152 138 163 173 Test 12/05/18 06:18 12/05/18 09:44 12/05/18 13:31 White Blood Count 13.0 H Red Blood Count 3.25 L Hemoglobin 8.5 L Hematocrit 27.5 L Mean Corpuscular Volume 84.6 Mean Corpuscular 26.2 L Hemoglobin Mean Corpuscular 30.9 L Hemoglobin Concent Red Cell Distribution 17.4 H Width Platelet Count 361 Mean Platelet Volume 10.6 H Immature Granulocytes % 0.900 H Neutrophils % 82.9 H Lymphocytes % 9.3 L Monocytes % 4.1 Eosinophils % 2.4 Basophils % 0.4 Nucleated Red Blood 0.0 Cells % Immature Granulocytes # 0.120 H Neutrophils # 10.8 H Lymphocytes # 1.2 Monocytes # 0.5 Eosinophils # 0.3 Basophils # 0.1 Nucleated Red Blood 0.0 Cells # Sodium Level 138 Potassium Level 4.6 Chloride Level 105 Carbon Dioxide Level 29 Anion Gap 4 L Blood Urea Nitrogen 12 Creatinine 0.29 L Est Glomerular Filtrat Rate mL/min Glucose Level 149 Calcium Level 8.8 Bedside Glucose 146 114 Medications Medications Current Medications IV Flush (NS 10 ml) 10 ml Q8 IV Last administered on 12/05/18 13:55; Admin Dose 10 ML; Start 11/26/18 at 22:00 Ascorbic Acid (Vitamin C) 500 mg DAILY GTB Last administered on 12/05/18 09:28; Admin Dose 500 MG; Start 11/27/18 at 09:00 Baclofen (Lioresal) 20 mg TID GTB Last administered on 12/05/18 13:10; Admin Dose 20 MG; Start 11/26/18 at 21:00 Cholecalciferol (Vitamin D) 2,000 unit DAILY GTB Last administered on 12/05/18 09:29; Admin Dose 2,000 UNIT; Start 11/27/18 at 09:00 Cyanocobalamin (Vitamin B12) 1,000 mcg DAILY GTB Last administered on 12/05/18 09:29; Admin Dose 1,000 MCG; Start 11/27/18 at 09:00 Miscellaneous Information 1 ea NOTE XX ; Start 11/26/18 at 18:30 Glucose (Glutose) 15 gm Q15M PRN PO DECREASED GLUCOSE; Start 11/26/18 at 18:30 Glucose (Glutose) 22.5 gm Q15M PRN PO DECREASED GLUCOSE; Start 11/26/18 at 18:30 Dextrose (D50w Syringe) 25 ml Q15M PRN IV DECREASED GLUCOSE; Start 11/26/18 at 18:30 Dextrose (D50w Syringe) 50 ml Q15M PRN IV DECREASED GLUCOSE; Start 11/26/18 at 18:30 Glucagon (Glucagen) 1 mg Q15M PRN IM DECREASED GLUCOSE; Start 11/26/18 at 18:30 Glucose (Glutose) 15 gm Q15M PRN BUCCAL DECREASED GLUCOSE; Start 11/26/18 at 18:30 Diagnostic Test (Pha) (Accu-Chek) 1 ea 02 XX Last administered on 11/29/18at 02:11; Admin Dose 1 EA; Start 11/27/18 at 02:00 Insulin Aspart (Novolog Insulin Pen) NOVOLOG *MILD* ALGORI... Q4 SC Last administered on 12/05/18 09:54; Admin Dose 1 UNIT; Start 11/27/18 at 00:00 Collagenase (Santyl) 1 applic PRN PRN TOP .WOUND; Start 11/27/18 at 09:00 Dextrose/Sodium Chloride 1,000 ml @ 70 mls/hr [id number] IV Last administered on 12/05/18 11:56; Admin Dose 70 MLS/HR; Start 11/27/18 at 12:30 Lorazepam (Ativan) 1 mg Q2H PRN IV SEIZURES Last administered on 11/29/18at 14:39; Admin Dose 1 MG; Start 11/27/18 at 18:00 Aspirin (Aspirin) 81 mg DAILY GTB Last administered on 12/05/18 09:29; Admin Dose 81 MG; Start 11/29/18 at 10:00 Levetiracetam 100 ml @ 400 mls/hr Q12 IVPB Last administered on 12/05/18 09:28 ; Admin Dose 400 MLS/HR; Start 11/29/18 at 21:00 Acetaminophen (Tylenol Liquid) 650 mg Q4H PRN GTB MILD PAIN(1-3)OR ELEVATED TEMP; Start 12/03/18 at 02:00 Sodium Hypochlorite (Dakin'S (Dilute )) 1 applic BID IRR Last administered on 12/05/18at 09:29; Admin Dose 1 APPLIC; Start 12/03/18 at 11:24 Fluconazole (Diflucan) 200 mg DAILY GTB Last administered on 12/05/18at 09:29; Admin Dose 200 MG; Start 12/04/18 at 13:30; Stop 12/07/18 at 13:29 MAITE VAZQUEZ December 05, 2018 14:04
--- NOTE | 2018-12-05 14:43 | CONS ---
Assessment/Plan Assessment/Plan Hospital Course 73 yo F with PSP and multiple other comorbidities who is admitted to the [facility] ICU for management of presumed septic shock. On 11/27, she was noted to have new onset seizures... for which neurology is consulted. On 11/29, she was noted to have a recurrence of the same.. The clinical picture could be consistent with epilepsy... Meningoencephalitis is less likely.. MRI brain is reassuringly negative for acute intracranial pathology...though notable for volume loss/ventriculomegaly. EEG was without epileptiform activity.. P: Cont Keppra maintenance 1g BID for now Ativan IV PRN prolonged seizure >5 min or for cluster Supportive care and other medical management per primary Will follow Consultation Date/Type/Reason Admit Date/Time Nov 26, 2018 at 20:42 Type of Consult Neurology Requesting Provider: NADEEN CHO Date/Time of Note DATE: 12/05/18 TIME: 14:43 24 HR Interval Summary Free Text/Dictation Continues acute care. No changes in pt condition reported. Exam Vital Signs Vitals Vital Signs Date Temp Pulse Resp B/P (MAP) Pulse Ox O2 O2 Flow FiO2 Time Delivery Rate 12/05/18 75 12:00 12/05/18 98.0 15 115/61 96 Trach 11:38 (79) Collar 12/05/18 5.0 08:00 12/05/18 28 05:36 Intake and Output 12/04/18 12/04/18 12/05/18 1414:59 22:59 06:59 IntakeIntake Total 100 ml 100 ml 750 ml OutputOutput Total 2000 ml 2800 ml BalanceBalance 100 ml -1900 ml -2050 ml Exam PE: Gen Appearance: No Apparent Distress HEENT: Trach; on t-bar Cardiovascular: Regular rate Abdomen: Soft; PEG Extremities: Dry; BL wrists contracted NE: The patient was obtunded and nonverbal. Opens eyes to noxious stimuli. Does not track or follow any commands. Cranial nerve examination was limited by mental status. Pupils were equal and reactive to light. There was no afferent pupillary defect. Funduscopic examination was limited. Face was grossly symmetric, w/ present corneal and cough reflexes. Tone was spastic in the UE. Muscle bulk was diminished. I did not see fasciculations. The patient withdrew to noxious stimulation x 4. Coordination and gait testing was limited by mental status. Arm and leg reflexes were within normal limits and symmetric. Garza's sign was absent. Plantar responses were flexor. TINO PRINCE NP December 05, 2018 14:43
--- NOTE | 2018-12-05 23:26 | PN ---
Date/Time of Note Date/Time of Note DATE: 12/05/18 TIME: 23:25 Assessment/Plan VTE Prophylaxis [place] [facility] [place] risk: 11 [place]CD applied [place] [facility] [place] No SCD contraindicated: other Pharmacological prophylaxis: other Pharm contraindication: other Lines/Catheters [facility]ter Type (from [facility] PICC Line Central line still needed: Yes Urinary Cath still in place: Yes Reason Cath still needed: urinary retention Assessment/Plan Hospital Course - SEPSIS -per ID - Hypernatremia - monitor BMP - If no improvement; will get nephrology consult -Atrial fibrillation/ flutter with rapid ventricular response. Patient is currently in sinus rhythm. - Continue amiodarone. Dr. Monson is following in cardiology consultation. -Progressive supranuclear palsy -Respiratory failure with tracheostomy patient is currently on cool aerosol mist. -Chronic encephalopathy -Decubitus ulcer of the right hip and sacrum, status post Girdlestone procedure of the right hip with flap in September 2018, followed by removal of necrotic tissue by Dr. Triplett at [facility]. -Right hip wound infection with OM of R hip, completed treatment with antibiotics. - surgery follows -Wound dehiscence, s/p repeat debridement at [facility] on 11/03/2018. -Diabetes - GLYCEMIC control -Chronic diastolic CHF -Dysphagia with GT - aspiration precautions -Anemia of chronic disease Further recommendations based on clinical course. Plan of care discussed with Dr. Shannon. staff Result Diagram: 12/05/18 0618 12/05/18 0618 Results 24hrs Laboratory Tests Test 12/05/18 01:25 12/05/18 04:22 12/05/18 06:18 12/05/18 09:44 Bedside Glucose 163 173 146 White Blood Count 13.0 H Red Blood Count 3.25 L Hemoglobin 8.5 L Hematocrit 27.5 L Mean Corpuscular Volume 84.6 Mean Corpuscular 26.2 L Hemoglobin Mean Corpuscular 30.9 L Hemoglobin Concent Red Cell Distribution 17.4 H Width Platelet Count 361 Mean Platelet Volume 10.6 H Immature Granulocytes % 0.900 H Neutrophils % 82.9 H Lymphocytes % 9.3 L Monocytes % 4.1 Eosinophils % 2.4 Basophils % 0.4 Nucleated Red Blood 0.0 Cells % Immature Granulocytes # 0.120 H Neutrophils # 10.8 H Lymphocytes # 1.2 Monocytes # 0.5 Eosinophils # 0.3 Basophils # 0.1 Nucleated Red Blood 0.0 Cells # Sodium Level 138 Potassium Level 4.6 Chloride Level 105 Carbon Dioxide Level 29 Anion Gap 4 L Blood Urea Nitrogen 12 Creatinine 0.29 L Est Glomerular Filtrat Rate mL/min Glucose Level 149 Calcium Level 8.8 Test 12/05/18 13:31 12/05/18 17:13 12/05/18 22:04 Bedside Glucose 114 156 196 Subjective 24 Hr Interval Summary Free Text/Dictation NAD afebrile no new issues reported last night SNF placement when stable dw staff Subjective hx not possible: pt non-verbal Constitutional: requiring O2 Exam/Review of Systems Exam Vitals Vital Signs Date Temp Pulse Resp B/P (MAP) Pulse Ox O2 O2 Flow FiO2 Time Delivery Rate 12/05/18 90 20:45 12/05/18 98.8 18 107/50 95 Trach 19:52 (69) Collar 12/05/18 5.0 28 19:44 Intake and Output 12/04/18 12/04/18 12/05/18 1515:00 23:00 07:00 IntakeIntake Total 100 ml 100 ml 750 ml OutputOutput Total 2000 ml 2800 ml BalanceBalance 100 ml -1900 ml -2050 ml Constitutional: non-verbal, frail Psych: nl mood/affect Eyes: nl lids, nl sclera, other (trach intact) ENMT: nl external ears & nose Neck: supple Respiratory: diminished breath sounds Cardiovascular: nl pulses, other (s1s2) Gastrointestinal: soft, other (gt intact) Musculoskeletal: joint tenderness, muscle weakness, range of motion Extremities: normal pulses Neurological: unresponsive Results Results 24hrs Laboratory Tests Test 12/05/18 01:25 12/05/18 04:22 12/05/18 06:18 12/05/18 09:44 Bedside Glucose 163 173 146 White Blood Count 13.0 H Red Blood Count 3.25 L Hemoglobin 8.5 L Hematocrit 27.5 L Mean Corpuscular Volume 84.6 Mean Corpuscular 26.2 L Hemoglobin Mean Corpuscular 30.9 L Hemoglobin Concent Red Cell Distribution 17.4 H Width Platelet Count 361 Mean Platelet Volume 10.6 H Immature Granulocytes % 0.900 H Neutrophils % 82.9 H Lymphocytes % 9.3 L Monocytes % 4.1 Eosinophils % 2.4 Basophils % 0.4 Nucleated Red Blood 0.0 Cells % Immature Granulocytes # 0.120 H Neutrophils # 10.8 H Lymphocytes # 1.2 Monocytes # 0.5 Eosinophils # 0.3 Basophils # 0.1 Nucleated Red Blood 0.0 Cells # Sodium Level 138 Potassium Level 4.6 Chloride Level 105 Carbon Dioxide Level 29 Anion Gap 4 L Blood Urea Nitrogen 12 Creatinine 0.29 L Est Glomerular Filtrat Rate mL/min Glucose Level 149 Calcium Level 8.8 Test 12/05/18 13:31 12/05/18 17:13 12/05/18 22:04 Bedside Glucose 114 156 196 Medications Medication Current Medications IV Flush (NS 10 ml) 10 ml Q8 IV Last administered on 12/05/18at 13:55; Admin Dose 10 ML; Start 11/26/18 at 22:00 Ascorbic Acid (Vitamin C) 500 mg DAILY GTB Last administered on 12/05/18at 09:28; Admin Dose 500 MG; Start 11/27/18 at 09:00 Baclofen (Lioresal) 20 mg TID GTB Last administered on 12/05/18at 22:02; Admin Dose 20 MG; Start 11/26/18 at 21:00 Cholecalciferol (Vitamin D) 2,000 unit DAILY GTB Last administered on 12/05/18at 09:29; Admin Dose 2,000 UNIT; Start 11/27/18 at 09:00 Cyanocobalamin (Vitamin B12) 1,000 mcg DAILY GTB Last administered on 12/05/18at 09:29; Admin Dose 1,000 MCG; Start 11/27/18 at 09:00 Miscellaneous Information 1 ea NOTE XX ; Start 11/26/18 at 18:30 Glucose (Glutose) 15 gm Q15M PRN PO DECREASED GLUCOSE; Start 11/26/18 at 18:30 Glucose (Glutose) 22.5 gm Q15M PRN PO DECREASED GLUCOSE; Start 11/26/18 at 18:30 Dextrose (D50w Syringe) 25 ml Q15M PRN IV DECREASED GLUCOSE; Start 11/26/18 at 18:30 Dextrose (D50w Syringe) 50 ml Q15M PRN IV DECREASED GLUCOSE; Start 11/26/18 at 18:30 Glucagon (Glucagen) 1 mg Q15M PRN IM DECREASED GLUCOSE; Start 11/26/18 at 18:30 Glucose (Glutose) 15 gm Q15M PRN BUCCAL DECREASED GLUCOSE; Start 11/26/18 at 18:30 Diagnostic Test (Pha) (Accu-Chek) 1 ea 02 XX Last administered on 11/29/18 02:11; Admin Dose 1 EA; Start 11/27/18 at 02:00 Insulin Aspart (Novolog Insulin Pen) NOVOLOG *MILD* ALGORI... Q4 SC Last administered on 12/05/18 17:28; Admin Dose 1 UNIT; Start 11/27/18 at 00:00 Collagenase (Santyl) 1 applic PRN PRN TOP .WOUND; Start 11/27/18 at 09:00 Dextrose/Sodium Chloride 1,000 ml @ 70 mls/hr [id number] IV Last administered on 12/05/18 11:56; Admin Dose 70 MLS/HR; Start 11/27/18 at 12:30 Lorazepam (Ativan) 1 mg Q2H PRN IV SEIZURES Last administered on 11/29/18 14:39; Admin Dose 1 MG; Start 11/27/18 at 18:00 Aspirin (Aspirin) 81 mg DAILY GTB Last administered on 12/05/18 09:29; Admin Dose 81 MG; Start 11/29/18 at 10:00 Levetiracetam 100 ml @ 400 mls/hr Q12 IVPB Last administered on 12/05/18 22:0 1; Admin Dose 400 MLS/HR; Start 11/29/18 at 21:00 Acetaminophen (Tylenol Liquid) 650 mg Q4H PRN GTB MILD PAIN(1-3)OR ELEVATED TEMP; Start 12/03/18 at 02:00 Sodium Hypochlorite (Dakin'S (Dilute 40)) 1 applic BID IRR Last administered on 12/05/18 21:50; Admin Dose 1 APPLIC; Start 12/03/18 at 11:24 Fluconazole (Diflucan) 200 mg DAILY GTB Last administered on 12/05/18 09:29; Admin Dose 200 MG; Start 12/04/18 at 13:30; Stop 12/07/18 at 13:29 NADEEN CHO December 05, 2018 23:26
[2018-12-06] VITALS (12 sets, daily range): BP systolic 86–124; BP diastolic 48–54; PULSE 71–91; RESP 17–18
[2018-12-06] MEDS: ACCU-CHEK XX SCH (02:00)
[2018-12-06] MEDS: INSULIN ASPART [NOVOLOG] 3 ML PEN SC SCH ×7 (02:09→20:57)
[2018-12-06] MEDS: DEXTROSE 5%-0.45% NACL 1,000 ML IV SCH (03:54)
[2018-12-06] MEDS: ASPIRIN 81 MG TAB GTB SCH (08:36)
[2018-12-06] MEDS: ASCORBIC ACID 500 MG TAB GTB SCH (08:36)
[2018-12-06] MEDS: FLUCONAZOLE 200 MG TAB GTB SCH (08:36)
[2018-12-06] MEDS: BACLOFEN 10 MG TAB GTB SCH ×3 (08:36→20:50)
[2018-12-06] MEDS: CHOLECALCIFEROL 2,000 UNIT CAP GTB SCH (08:36)
[2018-12-06] MEDS: LEVETIRACETAM 1000 MG (PMX) 100 ML IVPB SCH ×2 (08:36→20:49)
[2018-12-06] MEDS: SODIUM HYPOCHLORITE (1/40) 1 LITER BTL IRR SCH ×2 (08:37→20:50)
[2018-12-06] MEDS: CYANOCOBALAMIN 500 MCG TAB GTB SCH (08:37)
[2018-12-06] MEDS: BALSAM PERU/CASTOR OIL 60 GM TUBE TOP SCH (08:39)
--- NOTE | 2018-12-06 09:22 | PN ---
Date/Time of Note Date/Time of Note DATE: 12/06/18 TIME: 09:20 Assessment/Plan VTE Prophylaxis Risk score (from [facility] [place]0 risk: 7 SCD applied (from [facility] [place]): No SCD contraindicated: other Pharmacological prophylaxis: other Pharm contraindication: other Lines/Catheters [facility]ter Type (from [facility]): PICC Line Central line still needed: Yes Urinary Cath still in place: Yes Reason Cath still needed: urinary retention Assessment/Plan Hospital Course - SEPSIS -per ID - Hypernatremia - monitor BMP - If no improvement; will get nephrology consult -Atrial fibrillation/ flutter with rapid ventricular response. Patient is currently in sinus rhythm. - Continue amiodarone. Dr. Monson is following in cardiology consultation. -Progressive supranuclear palsy -Respiratory failure with tracheostomy patient is currently on cool aerosol mist. -Chronic encephalopathy -Decubitus ulcer of the right hip and sacrum, status post Girdlestone procedure of the right hip with flap in September 2018, followed by removal of necrotic tissue by Dr. Triplett at [facility]. -Right hip wound infection with OM of R hip, completed treatment with antibiotics. - surgery follows -Wound dehiscence, s/p repeat debridement at [facility] on 11/03/2018. -Diabetes - GLYCEMIC control -Chronic diastolic CHF -Dysphagia with GT - aspiration precautions -Anemia of chronic disease Further recommendations based on clinical course. Plan of care discussed with Dr. Shannon. staff Result Diagram: 12/06/18 0544 12/06/18 0544 Results 24hrs Laboratory Tests Test 12/05/18 09:44 12/05/18 13:31 12/05/18 17:13 12/05/18 22:04 Bedside Glucose 146 114 156 196 Test 12/06/18 02:15 12/06/18 05:44 12/06/18 06:28 12/06/18 08:38 Bedside Glucose 171 158 157 White Blood Count 13.1 H Red Blood Count 3.29 L Hemoglobin 8.7 L Hematocrit 27.6 L Mean Corpuscular Volume 83.9 Mean Corpuscular 26.4 L Hemoglobin Mean Corpuscular 31.5 L Hemoglobin Concent Red Cell Distribution 17.3 H Width Platelet Count 386 Mean Platelet Volume 10.5 H Immature Granulocytes % 0.700 H Neutrophils % 81.9 H Lymphocytes % 10.9 L Monocytes % 4.2 Eosinophils % 1.8 Basophils % 0.5 Nucleated Red Blood 0.0 Cells % Immature Granulocytes # 0.090 H Neutrophils # 10.7 H Lymphocytes # 1.4 Monocytes # 0.6 Eosinophils # 0.2 Basophils # 0.1 Nucleated Red Blood 0.0 Cells # Sodium Level 137 Potassium Level 4.9 Chloride Level 104 Carbon Dioxide Level 28 Anion Gap 5 Blood Urea Nitrogen 12 Creatinine 0.32 L Est Glomerular Filtrat Rate mL/min Glucose Level 157 Calcium Level 8.8 Subjective 24 Hr Interval Summary Free Text/Dictation NAD afebrile no new issues reported last night SNF placement when stable dw staff Subjective hx not possible: pt non-verbal Constitutional: requiring O2 Exam/Review of Systems Exam Vitals Vital Signs Date Temp Pulse Resp B/P (MAP) Pulse Ox O2 O2 Flow FiO2 Time Delivery Rate 12/06/18 74 08:20 12/06/18 98.2 17 124/54 100 Trach 08:04 (77) Collar 12/06/18 8.0 35 05:21 Intake and Output 12/05/18 12/05/18 12/06/18 1515:00 23:00 07:00 IntakeIntake Total 380 ml 1380 ml OutputOutput Total 3000 ml 2400 ml BalanceBalance 380 ml -1620 ml -2400 ml Constitutional: frail Psych: nl mood/affect Eyes: nl lids, nl sclera ENMT: nl external ears & nose Neck: other (trach intact) Respiratory: diminished breath sounds Cardiovascular: nl pulses, other (s1s2) Gastrointestinal: soft, other (GT intact) Musculoskeletal: muscle weakness, range of motion Neurological: unresponsive Results Results 24hrs Laboratory Tests Test 12/05/18 09:44 12/05/18 13:31 12/05/18 17:13 12/05/18 22:04 Bedside Glucose 146 114 156 196 Test 12/06/18 02:15 12/06/18 05:44 12/06/18 06:28 12/06/18 08:38 Bedside Glucose 171 158 157 White Blood Count 13.1 H Red Blood Count 3.29 L Hemoglobin 8.7 L Hematocrit 27.6 L Mean Corpuscular Volume 83.9 Mean Corpuscular 26.4 L Hemoglobin Mean Corpuscular 31.5 L Hemoglobin Concent Red Cell Distribution 17.3 H Width Platelet Count 386 Mean Platelet Volume 10.5 H Immature Granulocytes % 0.700 H Neutrophils % 81.9 H Lymphocytes % 10.9 L Monocytes % 4.2 Eosinophils % 1.8 Basophils % 0.5 Nucleated Red Blood 0.0 Cells % Immature Granulocytes # 0.090 H Neutrophils # 10.7 H Lymphocytes # 1.4 Monocytes # 0.6 Eosinophils # 0.2 Basophils # 0.1 Nucleated Red Blood 0.0 Cells # Sodium Level 137 Potassium Level 4.9 Chloride Level 104 Carbon Dioxide Level 28 Anion Gap 5 Blood Urea Nitrogen 12 Creatinine 0.32 L Est Glomerular Filtrat Rate mL/min Glucose Level 157 Calcium Level 8.8 Medications Medication Current Medications IV Flush (NS 10 ml) 10 ml Q8 IV Last administered on 12/06/18 06:00; Admin Dose 10 ML; Start 11/26/18 at 22:00 Ascorbic Acid (Vitamin C) 500 mg DAILY GTB Last administered on 12/06/18 08:36; Admin Dose 500 MG; Start 11/27/18 at 09:00 Baclofen (Lioresal) 20 mg TID GTB Last administered on 12/06/18 08:36; Admin Dose 20 MG; Start 11/26/18 at 21:00 Cholecalciferol (Vitamin D) 2,000 unit DAILY GTB Last administered on 12/06/18 08:36; Admin Dose 2,000 UNIT; Start 11/27/18 at 09:00 Cyanocobalamin (Vitamin B12) 1,000 mcg DAILY GTB Last administered on 12/06/18 08:37; Admin Dose 1,000 MCG; Start 11/27/18 at 09:00 Miscellaneous Information 1 ea NOTE XX ; Start 11/26/18 at 18:30 Glucose (Glutose) 15 gm Q15M PRN PO DECREASED GLUCOSE; Start 11/26/18 at 18:30 Glucose (Glutose) 22.5 gm Q15M PRN PO DECREASED GLUCOSE; Start 11/26/18 at 18:30 Dextrose (D50w Syringe) 25 ml Q15M PRN IV DECREASED GLUCOSE; Start 11/26/18 at 18:30 Dextrose (D50w Syringe) 50 ml Q15M PRN IV DECREASED GLUCOSE; Start 11/26/18 at 18:30 Glucagon (Glucagen) 1 mg Q15M PRN IM DECREASED GLUCOSE; Start 11/26/18 at 18:30 Glucose (Glutose) 15 gm Q15M PRN BUCCAL DECREASED GLUCOSE; Start 11/26/18 at 18:30 Diagnostic Test (Pha) (Accu-Chek) 1 ea 02 XX Last administered on 11/29/18 02:11; Admin Dose 1 EA; Start 11/27/18 at 02:00 Insulin Aspart (Novolog Insulin Pen) NOVOLOG *MILD* ALGORI... Q4 SC Last administered on 12/06/18 09:05; Admin Dose 1 UNIT; Start 11/27/18 at 00:00 Collagenase (Santyl) 1 applic PRN PRN TOP .WOUND; Start 11/27/18 at 09:00 Dextrose/Sodium Chloride 1,000 ml @ 70 mls/hr [id number] IV Last administered on 12/06/18 03:54; Admin Dose 70 MLS/HR; Start 11/27/18 at 12:30 Lorazepam (Ativan) 1 mg Q2H PRN IV SEIZURES Last administered on 11/29/18 1 4:39; Admin Dose 1 MG; Start 11/27/18 at 18:00 Aspirin (Aspirin) 81 mg DAILY GTB Last administered on 12/06/18 08:36; Admin Dose 81 MG; Start 11/29/18 at 10:00 Levetiracetam 100 ml @ 400 mls/hr Q12 IVPB Last administered on 12/06/18 08:36; Admin Dose 400 MLS/HR; Start 11/29/18 at 21:00 Acetaminophen (Tylenol Liquid) 650 mg Q4H PRN GTB MILD PAIN(1-3)OR ELEVATED TEMP; Start 12/03/18 at 02:00 Sodium Hypochlorite (Dakin'S (Dilute 40)) 1 applic BID IRR Last administered on 12/06/18 08:37; Admin Dose 1 APPLIC; Start 12/03/18 at 11:24 Fluconazole (Diflucan) 200 mg DAILY GTB Last administered on 12/06/18 08:36; Admin Dose 200 MG; Start 12/04/18 at 13:30; Stop 12/07/18 at 13:29 NADEEN CHO December 06, 2018 09:22
--- NOTE | 2018-12-06 12:08 | CONS ---
Assessment/Plan Assessment/Plan Hospital Course 73 yo F with PSP and multiple other comorbidities who is admitted to the [facility] ICU for management of presumed septic shock. On 11/27, she was noted to have new onset seizures... for which neurology is consulted. On 11/29, she was noted to have a recurrence of the same.. The clinical picture could be consistent with epilepsy... Meningoencephalitis is less likely.. MRI brain is reassuringly negative for acute intracranial pathology...though notable for volume loss/ventriculomegaly. EEG was without epileptiform activity.. P: Cont Keppra maintenance 1g BID for now Ativan IV PRN prolonged seizure >5 min or for cluster Supportive care and other medical management per primary Will follow clinically Consultation Date/Type/Reason Admit Date/Time Nov 26, 2018 at 20:42 Type of Consult Neurology Requesting Provider: NADEEN CHO Date/Time of Note DATE: 12/06/18 TIME: 12:07 24 HR Interval Summary Free Text/Dictation Continues acute care. No further seizure events reported. Subjective hx not possible: pt non-verbal Exam Vital Signs Vitals Vital Signs Date Temp Pulse Resp B/P (MAP) Pulse Ox O2 O2 Flow FiO2 Time Delivery Rate 12/06/18 74 08:20 12/06/18 98.2 17 124/54 100 Trach 08:04 (77) Collar 12/06/18 5.0 08:00 12/06/18 35 07:25 Intake and Output 12/05/18 12/05/18 12/06/18 1515:00 23:00 07:00 IntakeIntake Total 380 ml 1380 ml OutputOutput Total 3000 ml 2400 ml BalanceBalance 380 ml -1620 ml -2400 ml Exam PE: Gen Appearance: No Apparent Distress HEENT: Trach; on t-bar Cardiovascular: Regular rate Abdomen: Soft; PEG Extremities: Dry; BL wrists contracted NE: The patient was obtunded and nonverbal. Opens eyes to noxious stimuli. Does not track or follow any commands. Cranial nerve examination was limited by mental status. Pupils were equal and reactive to light. There was no afferent pupillary defect. Funduscopic examination was limited. Face was grossly symmetric, w/ present corneal and co ugh reflexes. Tone was spastic in the UE. Muscle bulk was diminished. I did not see fasciculations. The patient withdrew to noxious stimulation x 4. Coordination and gait testing was limited by mental status. Arm and leg reflexes were within normal limits and symmetric. Garza's sign was absent. Plantar responses were flexor. TINO PRINCE NP December 06, 2018 12:08
--- NOTE | 2018-12-06 13:43 | CONS ---
Assessment/Plan Assessment/Plan Hospital Course (Demo Recall) IMPRESSION: 1. Atrial fibrillation/atrial flutter with rapid ventricular response-now in SR 2. Hypotension/shock state, likely septic. 3. History of cardiomyopathy with mildly depressed left ventricular ejection fraction approximately 40% to 45%. 4. History of congestive heart failure, systolic, chronic. 5. Possible pneumonia. 6. Sepsis. 7. Leukocytosis. 8. Anemia requiring transfusions. 9. Hypernatremia. 10. Coagulopathy. 11. Urinary tract infection. 12. Seizures Recc: -Tele -serial ecg's -Continue abx's and f/u cx data -Continue keppra -Now on asa, follow for any bleeding complications -systemic anticoag held due to anemia requiring transfusions Consultation Date/Type/Reason Admit Date/Time Nov 26, 2018 at 20:42 Initial Consult Date 11/27/18 Type of Consult Cardiology Reason for Consultation AF Requesting Provider: NADEEN CHO Date/Time of Note DATE: 12/06/18 TIME: 13:36 Exam/Review of Systems Vital Signs Vitals Vital Signs Date Temp Pulse Resp B/P (MAP) Pulse Ox O2 O2 Flow FiO2 Time Delivery Rate 12/06/18 8.0 35 13:12 12/06/18 83 99 Aerosol 13:11 T Tube 12/06/18 99.9 17 112/54 12:06 (73) Intake and Output 12/05/18 12/05/18 12/06/18 1515:00 23:00 07:00 IntakeIntake Total 380 ml 1380 ml OutputOutput Total 3000 ml 2400 ml BalanceBalance 380 ml -1620 ml -2400 ml Exam Exam Review of Systems: CONSTITUTIONAL: No fevers, chills. PULMONARY: No sob CARDIOVASCULAR: No chest pain/palpitations GASTROINTESTINAL: No nausea/vomiting. GENITOURINARY: No hematuria/dysuria. MUSCULOSKELETAL: No myagias/arthalgias. PSYCHIATRIC: The patient denies depression. NEUROLOGIC: No weakness Constitutional: other (encephalopathic) Psych: no complaints Head: normocephalic ENMT: mucosa pink and moist Neck: supple, jvd (9 cm water) Respiratory: diminished breath sounds Cardiovascular: regular rate and rhythm Gastrointestinal: soft, non-tender Musculoskeletal: muscle tone (normal) Extremities: edema (normal) Labs Result Diagram: 12/06/18 0544 12/06/18 0544 Results 24hrs Laboratory Tests Test 12/05/18 17:13 12/05/18 22:04 12/06/18 02:15 12/06/18 05:44 Bedside Glucose 156 196 171 White Blood Count 13.1 H Red Blood Count 3.29 L Hemoglobin 8.7 L Hematocrit 27.6 L Mean Corpuscular Volume 83.9 Mean Corpuscular 26.4 L Hemoglobin Mean Corpuscular 31.5 L Hemoglobin Concent Red Cell Distribution 17.3 H Width Platelet Count 386 Mean Platelet Volume 10.5 H Immature Granulocytes % 0.700 H Neutrophils % 81.9 H Lymphocytes % 10.9 L Monocytes % 4.2 Eosinophils % 1.8 Basophils % 0.5 Nucleated Red Blood 0.0 Cells % Immature Granulocytes # 0.090 H Neutrophils # 10.7 H Lymphocytes # 1.4 Monocytes # 0.6 Eosinophils # 0.2 Basophils # 0.1 Nucleated Red Blood 0.0 Cells # Sodium Level 137 Potassium Level 4.9 Chloride Level 104 Carbon Dioxide Level 28 Anion Gap 5 Blood Urea Nitrogen 12 Creatinine 0.32 L Est Glomerular Filtrat Rate mL/min Glucose Level 157 Calcium Level 8.8 Test 12/06/18 06:28 12/06/18 08:38 12/06/18 11:59 Bedside Glucose 158 157 124 Medications Medications Current Medications IV Flush (NS 10 ml) 10 ml Q8 IV Last administered on 12/06/18 06:00; Admin Dose 10 ML; Start 11/26/18 at 22:00 Ascorbic Acid (Vitamin C) 500 mg DAILY GTB Last administered on 12/06/18 08:36; Admin Dose 500 MG; Start 11/27/18 at 09:00 Baclofen (Lioresal) 20 mg TID GTB Last administered on 12/06/18 12:02; Admin Dose 20 MG; Start 11/26/18 at 21:00 Cholecalciferol (Vitamin D) 2,000 unit DAILY GTB Last administered on 12/06/18 08:36; Admin Dose 2,000 UNIT; Start 11/27/18 at 09:00 Cyanocobalamin (Vitamin B12) 1,000 mcg DAILY GTB Last administered on 12/06/18 08:37; Admin Dose 1,000 MCG; Start 11/27/18 at 09:00 Miscellaneous Information 1 ea NOTE XX ; Start 11/26/18 at 18:30 Glucose (Glutose) 15 gm Q15M PRN PO DECREASED GLUCOSE; Start 11/26/18 at 18:30 Glucose (Glutose) 22.5 gm Q15M PRN PO DECREASED GLUCOSE; Start 11/26/18 at 18:30 Dextrose (D50w Syringe) 25 ml Q15M PRN IV DECREASED GLUCOSE; Start 11/26/18 at 18:30 Dextrose (D50w Syringe) 50 ml Q15M PRN IV DECREASED GLUCOSE; Start 11/26/18 at 18:30 Glucagon (Glucagen) 1 mg Q15M PRN IM DECREASED GLUCOSE; Start 11/26/18 at 18:30 Glucose (Glutose) 15 gm Q15M PRN BUCCAL DECREASED GLUCOSE; Start 11/26/18 at 18:30 Diagnostic Test (Pha) (Accu-Chek) 1 ea 02 XX Last administered on 11/29/18at 02:11; Admin Dose 1 EA; Start 11/27/18 at 02:00 Insulin Aspart (Novolog Insulin Pen) NOVOLOG *MILD* ALGORI... Q4 SC Last administered on 12/06/18 09:05; Admin Dose 1 UNIT; Start 11/27/18 at 00:00 Collagenase (Santyl) 1 applic PRN PRN TOP .WOUND; Start 11/27/18 at 09:00 Dextrose/Sodium Chloride 1,000 ml @ 70 mls/hr [id number] IV Last administered on 12/06/18at 03:54; Admin Dose 70 MLS/HR; Start 11/27/18 at 12:30 Lorazepam (Ativan) 1 mg Q2H PRN IV SEIZURES Last administered on 11/29/18at 14:39; Admin Dose 1 MG; Start 11/27/18 at 18:00 Aspirin (Aspirin) 81 mg DAILY GTB Last administered on 12/06/18 08:36; Admin Dose 81 MG; Start 11/29/18 at 10:00 Levetiracetam 100 ml @ 400 mls/hr Q12 IVPB Last administered on 12/06/18 08:36; Admin Dose 400 MLS/HR; Start 11/29/18 at 21:00 Acetaminophen (Tylenol Liquid) 650 mg Q4H PRN GTB MILD PAIN(1-3)OR ELEVATED TEMP; Start 12/03/18 at 02:00 Sodium Hypochlorite (Dakin'S (Dilute )) 1 applic BID IRR Last administered on 12/06/18at 08:37; Admin Dose 1 APPLIC; Start 12/03/18 at 11:24 Fluconazole (Diflucan) 200 mg DAILY GTB Last administered on 12/06/18at 08:36; Admin Dose 200 MG; Start 12/04/18 at 13:30; Stop 12/07/18 at 13:29 MAITE VAZQUEZ December 06, 2018 13:43
--- NOTE | 2018-12-06 18:46 | CONS ---
Assessment/Plan Assessment/Plan Hospital Course (Demo Recall) # sepsis, endovascular infection, respiratory - intermittent leukocytosis - s/p septic shock due to probable UTI - s/p coag negative Staph in blood cultures on 11/26/2018, probable contaminant - colonization of the airway by pseudomonas and corynebacteria - h/o sepsis due to bacteremia and pneumonia - h/o bacteremia: blood cultures grew enterococcus faecalis on 09/17/2018 secondary to R hip wound infection as its wound culture on 09/16/2018 grew E. faecalis as well - h/o recurrent acute on chronic hypoxemic respiratory failure secondary to secretion retention, mucous plugging, major left lung atelectasis, severe shunting - h/o probable aspiration pneumonia. - h/o pneumonia due to pseudomonas on 09/30/2018. s/p Levaquin (10/03/18- 10/07/2018), Meropenem (restart 09/30/2018-10/03/18, 10/12/18 - 10/19/2018) and empiric Amikacin (09/30/18-10/03/18) - H/o intubation on 09/30/2018 - H/o tracheostomy on 10/04/2018 - h/o pseudomonas in urine culture on 09/17/2018 with mild pyuria; treated with Cefepime (09/20/2018-09/25/2018) # infection of wound, OM of R hip - colonization of the wound of R hip by pseudomonas (wound culture on 10/31/2018), acinetobacter (wound culture on 11/27/2018) - h/o repeat debridement at [facility] on 11/03/[address]. [address] Pierson, her plastic surgeon at [facility], the wound appeared clean during the I&D (my conversation with him on 11/06/2018) - H/o stage sacral decubitus ulcer extending to bilateral buttocks. She reportedly had total hip dislocation and exposed femoral head. CT pelvis showed e/o OM. Pt complete IV vancomycin (09/17/2018-10/29/2018) for sacral OM associated with E. faecalis - H/o sharp excisional debridement down to and including bone of the sacrum on 08/22/2018 and 09/19/2018 - H/o excision of R hip ulcer, girdlestone resection arthroplasty and flap reconstruction 09/23/2018. The surgical pathology showed osteomyelitis of R hip bone, soft tissue cellulitis, and bony margin of excision was free of the disease - according to Dr. Pierson who performed the wound debridement, Pt needs wound care until granulation tissue builds and infection is cleared. Then he would decide if Pt should get repeat closure or not - XR of R hip on 11/09/2009 showed the remaining R femoral shaft in transverse orientation and with lateral deviation - h/o removal of devitalized/necrotic tissue by Dr. Pierson on 10/07/2018 # renal/ - funguria, recurrent - s/p probable UTI (hematuria on 11/26/2018) due to acinetobacter - h/o moderate L hydronephrosis per renal US # heme, neuro - h/o acute on chronic anemia requiring PRBC - chronic metabolic encephalopathy - supranuclear palsy # endo, cardiac - diabetes mellitus - A fib with RVR - chronic diastolic HF (EF 40-45% with grade 1 DD per 2D Echo 10/24/2018) - h/o hypertension # allergy - penicillin allergy (throat swelling) but Pt tolerates cefepime, ceftazidime, meropenem recommendations: - complete 3 day course of fluconazole (12/04-12/06/2018). Ramires was changed on 12/04/2018. I recommend antifungal because funguria persists despite changing her Ramires catheter Consultation Date/Type/Reason Admit Date/Time Nov 26, 2018 at 20:42 Initial Consult Date 11/26/18 Type of Consult ID Requesting Provider: NADEEN CHO Date/Time of Note DATE: 12/06/18 TIME: 18:44 24 HR Interval Summary Subjective hx not possible: pt non-verbal Exam/Review of Systems Exam Vitals Vital Signs Date Temp Pulse Resp B/P (MAP) Pulse Ox O2 O2 Flow FiO2 Time Delivery Rate 12/06/18 100.0 91 18 86/50 (62) 100 Trach 10.0 18:00 Collar 12/06/18 35 13:12 Intake and Output 12/05/18 12/05/18 12/06/18 1515:00 23:00 07:00 IntakeIntake Total 380 ml 1380 ml OutputOutput Total 3000 ml 2400 ml BalanceBalance 380 ml -1620 ml -2400 ml Constitutional: non-verbal, frail Psych: confusion Head: normocephalic, atraumatic Eyes: nl conjunctiva, nl lids ENMT: nl external ears & nose, nl nasal mucosa & septum, mucosa pink and moist Neck: other (trach) Respiratory: clear to auscultation, normal air movement Cardiovascular: regular rate and rhythm, nl pulses Gastrointestinal: soft, non-tender, other (GT) Genitourinary - Female: other (FC) Musculoskeletal: other (contractured, R hip wound); No swelling Extremities: No edema Neurological: lethargic, unresponsive Skin: rash or lesions (+R hip wound) Results Result Diagram: 12/06/1844 12/06/1844 Results 24hrs Laboratory Tests Test 12/05/18 22:04 12/06/18 02:15 12/06/18 05:44 12/06/18 06:28 Bedside Glucose 196 171 158 White Blood Count 13.1 H Red Blood Count 3.29 L Hemoglobin 8.7 L Hematocrit 27.6 L Mean Corpuscular Volume 83.9 Mean Corpuscular 26.4 L Hemoglobin Mean Corpuscular 31.5 L Hemoglobin Concent Red Cell Distribution 17.3 H Width Platelet Count 386 Mean Platelet Volume 10.5 H Immature Granulocytes % 0.700 H Neutrophils % 81.9 H Lymphocytes % 10.9 L Monocytes % 4.2 Eosinophils % 1.8 Basophils % 0.5 Nucleated Red Blood 0.0 Cells % Immature Granulocytes # 0.090 H Neutrophils # 10.7 H Lymphocytes # 1.4 Monocytes # 0.6 Eosinophils # 0.2 Basophils # 0.1 Nucleated Red Blood 0.0 Cells # Sodium Level 137 Potassium Level 4.9 Chloride Level 104 Carbon Dioxide Level 28 Anion Gap 5 Blood Urea Nitrogen 12 Creatinine 0.32 L Est Glomerular Filtrat Rate mL/min Glucose Level 157 Calcium Level 8.8 Test 12/06/18 08:38 12/06/18 11:59 12/06/18 17:33 Bedside Glucose 157 124 136 Medications Medication Current Medications IV Flush (NS 10 ml) 10 ml Q8 IV Last administered on 12/06/18at 14:00; Admin Dose 10 ML; Start 11/26/18 at 22:00 Ascorbic Acid (Vitamin C) 500 mg DAILY GTB Last administered on 12/06/18at 08:36; Admin Dose 500 MG; Start 11/27/18 at 09:00 Baclofen (Lioresal) 20 mg TID GTB Last administered on 12/06/18 12:02; Admin Dose 20 MG; Start 11/26/18 at 21:00 Cholecalciferol (Vitamin D) 2,000 unit DAILY GTB Last administered on 12/06/18 08:36; Admin Dose 2,000 UNIT; Start 11/27/18 at 09:00 Cyanocobalamin (Vitamin B12) 1,000 mcg DAILY GTB Last administered on 12/06/18 08:37; Admin Dose 1,000 MCG; Start 11/27/18 at 09:00 Miscellaneous Information 1 ea NOTE XX ; Start 11/26/18 at 18:30 Glucose (Glutose) 15 gm Q15M PRN PO DECREASED GLUCOSE; Start 11/26/18 at 18:30 Glucose (Glutose) 22.5 gm Q15M PRN PO DECREASED GLUCOSE; Start 11/26/18 at 18:30 Dextrose (D50w Syringe) 25 ml Q15M PRN IV DECREASED GLUCOSE; Start 11/26/18 at 18:30 Dextrose (D50w Syringe) 50 ml Q15M PRN IV DECREASED GLUCOSE; Start 11/26/18 at 18:30 Glucagon (Glucagen) 1 mg Q15M PRN IM DECREASED GLUCOSE; Start 11/26/18 at 18:30 Glucose (Glutose) 15 gm Q15M PRN BUCCAL DECREASED GLUCOSE; Start 11/26/18 at 18:30 Diagnostic Test (Pha) (Accu-Chek) 1 ea 02 XX Last administered on 11/29/18at 02:11; Admin Dose 1 EA; Start 11/27/18 at 02:00 Insulin Aspart (Novolog Insulin Pen) NOVOLOG *MILD* ALGORI... Q4 SC Last administered on 12/06/18 09:05; Admin Dose 1 UNIT; Start 11/27/18 at 00:00 Collagenase (Santyl) 1 applic PRN PRN TOP .WOUND; Start 11/27/18 at 09:00 Lorazepam (Ativan) 1 mg Q2H PRN IV SEIZURES Last administered on 11/29/18 14:39; Admin Dose 1 MG; Start 11/27/18 at 18:00 Aspirin (Aspirin) 81 mg DAILY GTB Last administered on 12/06/18 08:36; Admin Dose 81 MG; Start 11/29/18 at 10:00 Levetiracetam 100 ml @ 400 mls/hr Q12 IVPB Last administered on 12/06/18at 08:36; Admin Dose 400 MLS/HR; Start 11/29/18 at 21:00 Acetaminophen (Tylenol Liquid) 650 mg Q4H PRN GTB MILD PAIN(1-3)OR ELEVATED TEMP; Start 12/03/18 at 02:00 Sodium Hypochlorite (Dakin'S (Dilute )) 1 applic BID IRR Last administered on 12/06/18at 08:37; Admin Dose 1 APPLIC; Start 12/03/18 at 11:24 Fluconazole (Diflucan) 200 mg DAILY GTB Last administered on 12/06/18at 08:36; Admin Dose 200 MG; Start 12/04/18 at 13:30; Stop 12/07/18 at 13:29 IRWIN SKELTON M.D. December 06, 2018 18:46
[2018-12-07] VITALS (10 sets, daily range): BP systolic 95–111; BP diastolic 50–55; PULSE 73–108; RESP 15–22
[2018-12-07] MEDS: INSULIN ASPART [NOVOLOG] 3 ML PEN SC SCH ×6 (01:19→20:43)
[2018-12-07] MEDS: ACCU-CHEK XX SCH (02:00)
[2018-12-07] MEDS: ASPIRIN 81 MG TAB GTB SCH (09:49)
[2018-12-07] MEDS: CHOLECALCIFEROL 2,000 UNIT CAP GTB SCH (09:50)
[2018-12-07] MEDS: CYANOCOBALAMIN 500 MCG TAB GTB SCH (09:50)
[2018-12-07] MEDS: FLUCONAZOLE 200 MG TAB GTB SCH (09:50)
[2018-12-07] MEDS: LEVETIRACETAM 1000 MG (PMX) 100 ML IVPB SCH ×2 (09:51→20:25)
[2018-12-07] MEDS: ASCORBIC ACID 500 MG TAB GTB SCH (09:51)
[2018-12-07] MEDS: BALSAM PERU/CASTOR OIL 60 GM TUBE TOP SCH (09:52)
[2018-12-07] MEDS: BACLOFEN 10 MG TAB GTB SCH ×3 (09:57→20:25)
[2018-12-07] MEDS: SODIUM HYPOCHLORITE (1/40) 1 LITER BTL IRR SCH ×2 (10:04→20:26)
--- NOTE | 2018-12-07 12:09 | PN ---
Date/Time of Note Date/Time of Note DATE: 12/07/18 TIME: 12:08 Assessment/Plan VTE Prophylaxis Risk [place] [facility] [place] risk: 10 SCD applied (from [facility] [place] No SCD contraindicated: other Pharmacological prophylaxis: LMWH Lines/Catheters IV Catheter Type (from [facility]): PICC Line Central line still needed: Yes Urinary Cath still in place: Yes Reason Cath still needed: skin wounds contaminated by urine Assessment/Plan Hospital Course - SEPSIS -per ID - Hypernatremia - monitor BMP - If no improvement; will get nephrology consult -Atrial fibrillation/ flutter with rapid ventricular response. Patient is currently in sinus rhythm. - Continue amiodarone. Dr. Monson is following in cardiology consultation. -Progressive supranuclear palsy -Respiratory failure with tracheostomy patient is currently on cool aerosol mis t. -Chronic encephalopathy -Decubitus ulcer of the right hip and sacrum, status post Girdlestone procedure of the right hip with flap in September 2018, followed by removal of necrotic tissue by Dr. Triplett at [facility]. 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 - surgery follows -Wound dehiscence, s/p repeat debridement at [facility] on 11/03/2018. -Diabetes - GLYCEMIC control -Chronic diastolic CHF -Dysphagia with GT - aspiration precautions -Anemia of chronic disease Result Diagram: 12/07/18 0549 12/07/18 0549 Results 24hrs Laboratory Tests Test 12/06/18 17:33 12/06/18 20:47 12/07/18 01:15 12/07/18 05:06 Bedside Glucose 136 159 156 177 Test 12/07/18 05:49 12/07/18 08:18 White Blood Count 14.2 H Red Blood Count 3.38 L Hemoglobin 8.7 L Hematocrit 28.2 L Mean Corpuscular Volume 83.4 Mean Corpuscular 25.7 L Hemoglobin Mean Corpuscular 30.9 L Hemoglobin Concent Red Cell Distribution 17.9 H Width Platelet Count 325 Mean Platelet Volume 11.8 H Immature Granulocytes % 0.600 H Neutrophils % 85.4 H Lymphocytes % 7.5 L Monocytes % 4.3 Eosinophils % 1.4 Basophils % 0.8 Nucleated Red Blood 0.0 Cells % Immature Granulocytes # 0.080 H Neutrophils # 12.1 H Lymphocytes # 1.1 Monocytes # 0.6 Eosinophils # 0.2 Basophils # 0.1 Nucleated Red Blood 0.0 Cells # Sodium Level 136 Potassium Level 5.2 H Chloride Level 104 Carbon Dioxide Level 25 Anion Gap 7 Blood Urea Nitrogen 14 Creatinine 0.32 L Est Glomerular Filtrat Rate mL/min Glucose Level 165 Calcium Level 9.2 Bedside Glucose 143 Subjective 24 Hr Interval Summary Free Text/Dictation Patient has no complaints Exam/Review of Systems Exam Vitals Vital Signs Date Temp Pulse Resp B/P (MAP) Pulse Ox O2 O2 Flow FiO2 Time Delivery Rate 12/07/18 98.8 85 15 111/50 97 Trach 11:57 (70) Collar 12/07/18 8.0 35 08:36 Intake and Output 12/06/18 12/06/18 12/07/18 1515:00 23:00 07:00 IntakeIntake Total 880 ml 1100 ml 850 ml OutputOutput Total 2650 ml 1500 ml BalanceBalance 880 ml -1550 ml -650 ml Constitutional: well developed Head: normocephalic, atraumatic Neck: supple Respiratory: diminished breath sounds Cardiovascular: regular rate and rhythm Gastrointestinal: soft, non-tender Extremities: normal pulses Results Results 24hrs Laboratory Tests Test 12/06/18 17:33 12/06/18 20:47 12/07/18 01:15 12/07/18 05:06 Bedside Glucose 136 159 156 177 Test 12/07/18 05:49 12/07/18 08:18 White Blood Count 14.2 H Red Blood Count 3.38 L Hemoglobin 8.7 L Hematocrit 28.2 L Mean Corpuscular Volume 83.4 Mean Corpuscular 25.7 L Hemoglobin Mean Corpuscular 30.9 L Hemoglobin Concent Red Cell Distribution 17.9 H Width Platelet Count 325 Mean Platelet Volume 11.8 H Immature Granulocytes % 0.600 H Neutrophils % 85.4 H Lymphocytes % 7.5 L Monocytes % 4.3 Eosinophils % 1.4 Basophils % 0.8 Nucleated Red Blood 0.0 Cells % Immature Granulocytes # 0.080 H Neutrophils # 12.1 H Lymphocytes # 1.1 Monocytes # 0.6 Eosinophils # 0.2 Basophils # 0.1 Nucleated Red Blood 0.0 Cells # Sodium Level 136 Potassium Level 5.2 H Chloride Level 104 Carbon Dioxide Level 25 Anion Gap 7 Blood Urea Nitrogen 14 Creatinine 0.32 L Est Glomerular Filtrat Rate mL/min Glucose Level 165 Calcium Level 9.2 Bedside Glucose 143 Medications Medication Current Medications IV Flush (NS 10 ml) 10 ml Q8 IV Last administered on 12/07/18 05:21; Admin Dose 10 ML; Start 11/26/18 at 22:00 Ascorbic Acid (Vitamin C) 500 mg DAILY GTB Last administered on 12/07/18 09:51; Admin Dose 500 MG; Start 11/27/18 at 09:00 Baclofen (Lioresal) 20 mg TID GTB Last administered on 12/07/18 09:57; Admin Dose 20 MG; Start 11/26/18 at 21:00 Cholecalciferol (Vitamin D) 2,000 unit DAILY GTB Last administered on 12/07/18 09:50; Admin Dose 2,000 UNIT; Start 11/27/18 at 09:00 Cyanocobalamin (Vitamin B12) 1,000 mcg DAILY GTB Last administered on 12/07/18 09:50; Admin Dose 1,000 MCG; Start 11/27/18 at 09:00 Miscellaneous Information 1 ea NOTE XX ; Start 11/26/18 at 18:30 Glucose (Glutose) 15 gm Q15M PRN PO DECREASED GLUCOSE; Start 11/26/18 at 18:30 Glucose (Glutose) 22.5 gm Q15M PRN PO DECREASED GLUCOSE; Start 11/26/18 at 18:30 Dextrose (D50w Syringe) 25 ml Q15M PRN IV DECREASED GLUCOSE; Start 11/26/18 at 18:30 Dextrose (D50w Syringe) 50 ml Q15M PRN IV DECREASED GLUCOSE; Start 11/26/18 at 18:30 Glucagon (Glucagen) 1 mg Q15M PRN IM DECREASED GLUCOSE; Start 11/26/18 at 18:30 Glucose (Glutose) 15 gm Q15M PRN BUCCAL DECREASED GLUCOSE; Start 11/26/18 at 18:30 Diagnostic Test (Pha) (Accu-Chek) 1 ea 02 XX Last administered on 12/07/18 02:00; Admin Dose 1 EA; Start 11/27/18 at 02:00 Insulin Aspart (Novolog Insulin Pen) NOVOLOG *MILD* ALGORI... Q4 SC Last administered on 12/07/18 08:31; Admin Dose 1 UNIT; Start 11/27/18 at 00:00 Collagenase (Santyl) 1 applic PRN PRN TOP .WOUND; Start 11/27/18 at 09:00 Lorazepam (Ativan) 1 mg Q2H PRN IV SEIZURES Last administered on 11/29/18 14:39; Admin Dose 1 MG; Start 11/27/18 at 18:00 Aspirin (Aspirin) 81 mg DAILY GTB Last administered on 12/07/18 09:49; Admin Dose 81 MG; Start 11/29/18 at 10:00 Levetiracetam 100 ml @ 400 mls/hr Q12 IVPB Last administered on 12/07/18 09:51; Admin Dose 400 MLS/HR; Start 11/29/18 at 21:00 Acetaminophen (Tylenol Liquid) 650 mg Q4H PRN GTB MILD PAIN(1-3)OR ELEVATED TEMP; Start 12/03/18 at 02:00 Sodium Hypochlorite (Dakin'S (Dilute )) 1 applic BID IRR Last administered on 12/07/18 10:04; Admin Dose 1 APPLIC; Start 12/03/18 at 11:24 Fluconazole (Diflucan) 200 mg DAILY GTB Last administered on 12/07/18 09:50; Admin Dose 200 MG; Start 12/04/18 at 13:30; Stop 12/07/18 at 13:29 KALEY NO December 07, 2018 12:09
[2018-12-07] MEDS ORDERED: SODIUM POLYSTYRENE 15 GM KIT (POWDER + SORBITOL) PO SCH (12:30)
--- NOTE | 2018-12-07 14:40 | CONS ---
Assessment/Plan Assessment/Plan Hospital Course (Demo Recall) IMPRESSION: 1. Atrial fibrillation/atrial flutter with rapid ventricular response-now in SR 2. Hypotension/shock state, likely septic. 3. History of cardiomyopathy with mildly depressed left ventricular ejection fraction approximately 40% to 45%. 4. History of congestive heart failure, systolic, chronic. 5. Possible pneumonia. 6. Sepsis. 7. Leukocytosis. 8. Anemia requiring transfusions. 9. Hypernatremia. 10. Coagulopathy. 11. Urinary tract infection. 12. Seizures 14. hyperkalemia Recc: -Tele -serial ecg's -Continue abx's and f/u cx data -Continue keppra -Now on asa, follow for any bleeding complications -systemic anticoag held due to anemia requiring transfusions -treat elevated K Consultation Date/Type/Reason Admit Date/Time Nov 26, 2018 at 20:42 Initial Consult Date 11/27/18 Type of Consult Cardiology Reason for Consultation AF Requesting Provider: NADEEN CHO Date/Time of Note DATE: 12/07/18 TIME: 14:39 Exam/Review of Systems Vital Signs Vitals Vital Signs Date Temp Pulse Resp B/P (MAP) Pulse Ox O2 O2 Flow FiO2 Time Delivery Rate 12/07/18 100 8.0 35 13:20 12/07/18 94 18 Aerosol 13:20 T Tube 12/07/18 98.8 111/50 11:57 (70) Intake and Output 12/06/18 12/06/18 12/07/18 1515:00 23:00 07:00 IntakeIntake Total 880 ml 1100 ml 850 ml OutputOutput Total 2650 ml 1500 ml BalanceBalance 880 ml -1550 ml -650 ml Exam Exam Review of Systems: CONSTITUTIONAL: No fevers, chills. PULMONARY: No sob CARDIOVASCULAR: No chest pain/palpitations GASTROINTESTINAL: No nausea/vomiting. GENITOURINARY: No hematuria/dysuria. MUSCULOSKELETAL: No myagias/arthalgias. PSYCHIATRIC: The patient denies depression. NEUROLOGIC: No weakness Constitutional: other (encephalopathic) Psych: no complaints Head: normocephalic ENMT: mucosa pink and moist Neck: supple, jvd (9 cm water) Respiratory: clear to auscultation Cardiovascular: regular rate and rhythm Gastrointestinal: soft, non-tender Musculoskeletal: muscle tone (normal) Extremities: edema (none) Neurological: other (encephalopathic) Labs Result Diagram: 12/07/18 0549 12/07/18 0549 Results 24hrs Laboratory Tests Test 12/06/18 17:33 12/06/18 20:47 12/07/18 01:15 12/07/18 05:06 Bedside Glucose 136 159 156 177 Test 12/07/18 05:49 12/07/18 08:18 12/07/18 13:02 White Blood Count 14.2 H Red Blood Count 3.38 L Hemoglobin 8.7 L Hematocrit 28.2 L Mean Corpuscular Volume 83.4 Mean Corpuscular 25.7 L Hemoglobin Mean Corpuscular 30.9 L Hemoglobin Concent Red Cell Distribution 17.9 H Width Platelet Count 325 Mean Platelet Volume 11.8 H Immature Granulocytes % 0.600 H Neutrophils % 85.4 H Lymphocytes % 7.5 L Monocytes % 4.3 Eosinophils % 1.4 Basophils % 0.8 Nucleated Red Blood 0.0 Cells % Immature Granulocytes # 0.080 H Neutrophils # 12.1 H Lymphocytes # 1.1 Monocytes # 0.6 Eosinophils # 0.2 Basophils # 0.1 Nucleated Red Blood 0.0 Cells # Sodium Level 136 Potassium Level 5.2 H Chloride Level 104 Carbon Dioxide Level 25 Anion Gap 7 Blood Urea Nitrogen 14 Creatinine 0.32 L Est Glomerular Filtrat Rate mL/min Glucose Level 165 Calcium Level 9.2 Bedside Glucose 143 124 Medications Medications Current Medications IV Flush (NS 10 ml) 10 ml Q8 IV Last administered on 12/07/18 14:18; Admin Dose 10 ML; Start 11/26/18 at 22:00 Ascorbic Acid (Vitamin C) 500 mg DAILY GTB Last administered on 12/07/18 09:51; Admin Dose 500 MG; Start 11/27/18 at 09:00 Baclofen (Lioresal) 20 mg TID GTB Last administered on 12/07/18 12:59; Admin Dose 20 MG; Start 11/26/18 at 21:00 Cholecalciferol (Vitamin D) 2,000 unit DAILY GTB Last administered on 12/07/18 09:50; Admin Dose 2,000 UNIT; Start 11/27/18 at 09:00 Cyanocobalamin (Vitamin B12) 1,000 mcg DAILY GTB Last administered on 5/4/19at 09:50; Admin Dose 1,000 MCG; Start 11/27/18 at 09:00 Miscellaneous Information 1 ea NOTE XX ; Start 11/26/18 at 18:30 Glucose (Glutose) 15 gm Q15M PRN PO DECREASED GLUCOSE; Start 11/26/18 at 18:30 Glucose (Glutose) 22.5 gm Q15M PRN PO DECREASED GLUCOSE; Start 11/26/18 at 18:30 Dextrose (D50w Syringe) 25 ml Q15M PRN IV DECREASED GLUCOSE; Start 11/26/18 at 18:30 Dextrose (D50w Syringe) 50 ml Q15M PRN IV DECREASED GLUCOSE; Start 11/26/18 at 18:30 Glucagon (Glucagen) 1 mg Q15M PRN IM DECREASED GLUCOSE; Start 11/26/18 at 18:30 Glucose (Glutose) 15 gm Q15M PRN BUCCAL DECREASED GLUCOSE; Start 11/26/18 at 18:30 Diagnostic Test (Pha) (Accu-Chek) 1 ea 02 XX Last administered on 12/07/18at 02:00; Admin Dose 1 EA; Start 11/27/18 at 02:00 Insulin Aspart (Novolog Insulin Pen) NOVOLOG *MILD* ALGORI... Q4 SC Last administered on 12/07/18 08:31; Admin Dose 1 UNIT; Start 11/27/18 at 00:00 Collagenase (Santyl) 1 applic PRN PRN TOP .WOUND; Start 11/27/18 at 09:00 Lorazepam (Ativan) 1 mg Q2H PRN IV SEIZURES Last administered on 11/29/18 14:39; Admin Dose 1 MG; Start 11/27/18 at 18:00 Aspirin (Aspirin) 81 mg DAILY GTB Last administered on 12/07/18 09:49; Admin Dose 81 MG; Start 11/29/18 at 10:00 Levetiracetam 100 ml @ 400 mls/hr Q12 IVPB Last administered on 12/07/18 09:51; Admin Dose 400 MLS/HR; Start 11/29/18 at 21:00 Acetaminophen (Tylenol Liquid) 650 mg Q4H PRN GTB MILD PAIN(1-3)OR ELEVATED TEMP; Start 12/03/18 at 02:00 Sodium Hypochlorite (Dakin'S (Dilute )) 1 applic BID IRR Last administered on 12/07/18at 10:04; Admin Dose 1 APPLIC; Start 12/03/18 at 11:24 Sodium Polystyrene Sulfonate (Kayexelate 15 Gm Kit (Powder+Sorbitol)) 15 gm ONCE PO Last administered on 12/07/18at 13:19; Admin Dose 15 GM; Start 12/07/18 at 12:30; Stop 12/07/18 at 16:00 MAITE VAZQUEZ December 07, 2018 14:40
[2018-12-07] MEDS: ACETAMINOPHEN 650MG/20.3ML CUP GTB PRN (20:26)
--- NOTE | 2018-12-07 21:03 | CONS ---
Assessment/Plan Assessment/Plan Hospital Course (Demo Recall) # sepsis, endovascular infection, respiratory - sepsis on 12/07/2018 - s/p septic shock due to probable UTI - s/p coag negative Staph in blood cultures on 11/26/2018, probable contaminant - colonization of the airway by pseudomonas and corynebacteria - h/o sepsis due to bacteremia and pneumonia - h/o bacteremia: blood cultures grew enterococcus faecalis on 09/17/2018 secondary to R hip wound infection as its wound culture on 09/16/2018 grew E. faecalis as well - h/o recurrent acute on chronic hypoxemic respiratory failure secondary to secretion retention, mucous plugging, major left lung atelectasis, severe shunting - h/o probable aspiration pneumonia. - h/o pneumonia due to pseudomonas on 09/30/2018. s/p Levaquin (10/03/18- 10/07/2018), Meropenem (restart 09/30/2018-10/03/18, 10/12/18 - 10/19/2018) and empiric Amikacin (09/30/18-10/03/18) - H/o intubation on 09/30/2018 - H/o tracheostomy on 10/04/2018 - h/o pseudomonas in urine culture on 09/17/2018 with mild pyuria; treated with Cefepime (09/20/2018-09/25/2018) # infection of wound, OM of R hip, pressure ulcer - colonization of the wound of R hip by pseudomonas (wound culture on 10/31/2018), acinetobacter (wound culture on 11/27/2018) - h/o repeat debridement at [facility] on 11/03/[address]. [address] Pierson, her plastic surgeon at [facility], the wound appeared clean during the I&D (my conversation with him on 11/06/2018) - H/o stage sacral decubitus ulcer extending to bilateral buttocks. She reportedly had total hip dislocation and exposed femoral head. CT pelvis showed e/o OM. Pt complete IV vancomycin (09/17/2018-10/29/2018) for sacral OM associated with E. faecalis - H/o sharp excisional debridement down to and including bone of the sacrum on 08/22/2018 and 09/19/2018 - H/o excision of R hip ulcer, girdlestone resection arthroplasty and flap reconstruction 09/23/2018. The surgical pathology showed osteomyelitis of R hip bone, soft tissue cellulitis, and bony margin of excision was free of the disease - according to Dr. Pierson who performed the wound debridement, Pt needs wound care until granulation tissue builds and infection is cleared. Then he would decide if Pt should get repeat closure or not - XR of R hip on 11/09/2009 showed the remaining R femoral shaft in transverse orientation and with lateral deviation - h/o removal of devitalized/necrotic tissue by Dr. Pierson on 10/07/2018 # renal/ - funguria, recurrent - hematuria on 11/26/2018 - h/o moderate L hydronephrosis per renal US # heme, neuro - h/o acute on chronic anemia requiring PRBC - chronic metabolic encephalopathy - supranuclear palsy # endo, cardiac - diabetes mellitus - A fib with RVR - chronic diastolic HF (EF 40-45% with grade 1 DD per 2D Echo 10/24/2018) - h/o hypertension # allergy - penicillin allergy (throat swelling) but Pt tolerates cefepime, ceftazidime, meropenem recommendations: - ordered: blood cultures x2, procalcitonin, lactic acid, resp cultrue, urinalysis and urine culture, wound culture from R hip and wound culture from sacrum, CXR - restart IV vancomycin and meropenem (restart 12/07/2018-) - complete 3 day course of fluconazole (12/04-12/06/2018). Ramires was changed on 12/04/2018. management d/w Pt's RN Consultation Date/Type/Reason Admit Date/Time Nov 26, 2018 at 20:42 Initial Consult Date 11/26/18 Type of Consult ID Requesting Provider: NADEEN CHO Date/Time of Note DATE: 12/07/18 TIME: 20:56 24 HR Interval Summary Subjective hx not possible: pt non-verbal, pt critical, pt critical status Exam/Review of Systems Exam Vitals Vital Signs Date Temp Pulse Resp B/P (MAP) Pulse Ox O2 O2 Flow FiO2 Time Delivery Rate 12/07/18 102.0 108 22 95/50 (65) 91 20:00 12/07/18 5.0 19:15 12/07/18 35 17:42 12/07/18 Aerosol 17:42 T Tube Intake and Output 12/06/18 12/06/18 12/07/18 1515:00 23:00 07:00 IntakeIntake Total 880 ml 1100 ml 850 ml OutputOutput Total 2650 ml 1500 ml BalanceBalance 880 ml -1550 ml -650 ml Constitutional: non-verbal, frail Psych: confusion Head: normocephalic, atraumatic Eyes: nl conjunctiva, nl lids, nl sclera ENMT: nl external ears & nose, mucosa pink and moist, other (mouth open) Neck: supple; No non-tender Respiratory: clear to auscultation, normal air movement Cardiovascular: regular rate and rhythm, nl pulses Gastrointestinal: soft, non-tender; No distended, No tender Genitourinary - Female: other (FC) Musculoskeletal: muscle weakness Extremities: No edema Neurological: lethargic, unresponsive Results Result Diagram: 12/07/18 0549 12/07/18 0549 Results 24hrs Laboratory Tests Test 12/07/18 01:15 12/07/18 05:06 12/07/18 05:49 12/07/18 08:18 Bedside Glucose 156 177 143 White Blood Count 14.2 H Red Blood Count 3.38 L Hemoglobin 8.7 L Hematocrit 28.2 L Mean Corpuscular Volume 83.4 Mean Corpuscular 25.7 L Hemoglobin Mean Corpuscular 30.9 L Hemoglobin Concent Red Cell Distribution 17.9 H Width Platelet Count 325 Mean Platelet Volume 11.8 H Immature Granulocytes % 0.600 H Neutrophils % 85.4 H Lymphocytes % 7.5 L Monocytes % 4.3 Eosinophils % 1.4 Basophils % 0.8 Nucleated Red Blood 0.0 Cells % Immature Granulocytes # 0.080 H Neutrophils # 12.1 H Lymphocytes # 1.1 Monocytes # 0.6 Eosinophils # 0.2 Basophils # 0.1 Nucleated Red Blood 0.0 Cells # Sodium Level 136 Potassium Level 5.2 H Chloride Level 104 Carbon Dioxide Level 25 Anion Gap 7 Blood Urea Nitrogen 14 Creatinine 0.32 L Est Glomerular Filtrat Rate mL/min Glucose Level 165 Calcium Level 9.2 Test 12/07/18 13:02 12/07/18 18:02 12/07/18 20:39 Bedside Glucose 124 155 189 Medications Medication Current Medications IV Flush (NS 10 ml) 10 ml Q8 IV Last administered on 12/07/18 14:18; Admin Dose 10 ML; Start 11/26/18 at 22:00 Ascorbic Acid (Vitamin C) 500 mg DAILY GTB Last administered on 12/07/18 09:51; Admin Dose 500 MG; Start 11/27/18 at 09:00 Baclofen (Lioresal) 20 mg TID GTB Last administered on 12/07/18 12:59; Admin Dose 20 MG; Start 11/26/18 at 21:00 Cholecalciferol (Vitamin D) 2,000 unit DAILY GTB Last administered on 12/07/18 09:50; Admin Dose 2,000 UNIT; Start 11/27/18 at 09:00 Cyanocobalamin (Vitamin B12) 1,000 mcg DAILY GTB Last administered on 12/07/18 09:50; Admin Dose 1,000 MCG; Start 11/27/18 at 09:00 Miscellaneous Information 1 ea NOTE XX ; Start 11/26/18 at 18:30 Glucose (Glutose) 15 gm Q15M PRN PO DECREASED GLUCOSE; Start 11/26/18 at 18:30 Glucose (Glutose) 22.5 gm Q15M PRN PO DECREASED GLUCOSE; Start 11/26/18 at 18:30 Dextrose (D50w Syringe) 25 ml Q15M PRN IV DECREASED GLUCOSE; Start 11/26/18 at 18:30 Dextrose (D50w Syringe) 50 ml Q15M PRN IV DECREASED GLUCOSE; Start 11/26/18 at 18:30 Glucagon (Glucagen) 1 mg Q15M PRN IM DECREASED GLUCOSE; Start 11/26/18 at 18:30 Glucose (Glutose) 15 gm Q15M PRN BUCCAL DECREASED GLUCOSE; Start 11/26/18 at 18:30 Diagnostic Test (Pha) (Accu-Chek) 1 ea 02 XX Last administered on 12/07/18at 02:00; Admin Dose 1 EA; Start 11/27/18 at 02:00 Insulin Aspart (Novolog Insulin Pen) NOVOLOG *MILD* ALGORI... Q4 SC Last administered on 12/07/18 18:08; Admin Dose 1 UNIT; Start 11/27/18 at 00:00 Collagenase (Santyl) 1 applic PRN PRN TOP .WOUND; Start 11/27/18 at 09:00 Lorazepam (Ativan) 1 mg Q2H PRN IV SEIZURES Last administered on 11/29/18 14:39; Admin Dose 1 MG; Start 11/27/18 at 18:00 Aspirin (Aspirin) 81 mg DAILY GTB Last administered on 12/07/18 09:49; Admin Dose 81 MG; Start 11/29/18 at 10:00 Levetiracetam 100 ml @ 400 mls/hr Q12 IVPB Last administered on 12/07/18 09:51; Admin Dose 400 MLS/HR; Start 11/29/18 at 21:00 Acetaminophen (Tylenol Liquid) 650 mg Q4H PRN GTB MILD PAIN(1-3)OR ELEVATED TEMP; Start 12/03/18 at 02:00 Sodium Hypochlorite (Dakin'S (Dilute )) 1 applic BID IRR Last administered on 12/07/18 10:04; Admin Dose 1 APPLIC; Start 12/03/18 at 11:24 IRWIN SKELTON M.D. December 07, 2018 21:03
[2018-12-07] MEDS ORDERED: VANCOMYCIN IV PER PHARMACY XX SCH (23:30)
[2018-12-08] VITALS (16 sets, daily range): BP systolic 75–119; BP diastolic 37–59; PULSE 64–98; RESP 18–28
[2018-12-08] MEDS ORDERED: SOD CHLORIDE 0.9% 500 ML IV ONE (00:30)
[2018-12-08] MEDS: MEROPENEM 1 GM/50ML(PMX) 50 ML IVPB SCH ×4 (00:44→23:55)
[2018-12-08] MEDS: INSULIN ASPART [NOVOLOG] 3 ML PEN SC SCH ×7 (01:00→20:42)
[2018-12-08] MEDS ORDERED: VANCOMYCIN HCL 1.25 GM in SOD CHLORIDE 0.9% 250 ML IVPB SCH (01:00)
[2018-12-08] MEDS: ACCU-CHEK XX SCH (02:00)
[2018-12-08] MEDS: ASPIRIN 81 MG TAB GTB SCH (09:56)
[2018-12-08] MEDS: CYANOCOBALAMIN 500 MCG TAB GTB SCH (09:56)
[2018-12-08] MEDS: BACLOFEN 10 MG TAB GTB SCH ×3 (09:56→20:29)
[2018-12-08] MEDS: ASCORBIC ACID 500 MG TAB GTB SCH (09:56)
[2018-12-08] MEDS: CHOLECALCIFEROL 2,000 UNIT CAP GTB SCH (09:56)
[2018-12-08] MEDS: SODIUM HYPOCHLORITE (1/40) 1 LITER BTL IRR SCH ×2 (09:57→20:28)
[2018-12-08] MEDS: BALSAM PERU/CASTOR OIL 60 GM TUBE TOP SCH (09:57)
[2018-12-08] MEDS: LEVETIRACETAM 1000 MG (PMX) 100 ML IVPB SCH ×2 (09:58→20:28)
--- NOTE | 2018-12-08 12:50 | PN ---
Date/Time of Note Date/Time of Note DATE: 12/08/18 TIME: 12:50 Assessment/Plan VTE Prophylaxis Risk [place]from [facility] [place]0 risk: 10 SCD applied (from [facility] [place] No SCD contraindicated: other Pharmacological prophylaxis: LMWH Lines/Catheters IV Catheter Type (from [facility]): PICC Line Central line still needed: Yes Urinary Cath still in place: Yes Reason Cath still needed: skin wounds contaminated by urine Assessment/Plan Hospital Course - SEPSIS -per ID - Hypernatremia - monitor BMP - If no improvement; will get nephrology consult -Atrial fibrillation/ flutter with rapid ventricular response. Patient is currently in sinus rhythm. - Continue amiodarone. Dr. Monson is following in cardiology consultation. -Progressive supranuclear palsy -Respiratory failure with tracheostomy patient is currently on cool aerosol mis t. -Chronic encephalopathy -Decubitus ulcer of the right hip and sacrum, status post Girdlestone procedure of the right hip with flap in September 2018, followed by removal of necrotic tissue by Dr. Triplett at [facility]. 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 - surgery follows -Wound dehiscence, s/p repeat debridement at [facility] on 11/03/2018. -Diabetes - GLYCEMIC control -Chronic diastolic CHF -Dysphagia with GT - aspiration precautions -Anemia of chronic disease Result Diagram: 12/08/18 0632 12/08/18 0632 Results 24hrs Laboratory Tests Test 12/07/18 13:02 12/07/18 18:02 12/07/18 20:39 12/07/18 21:09 Bedside Glucose 124 155 189 Lactic Acid Level 1.1 Procalcitonin 1.93 H Test 12/08/18 01:06 12/08/18 02:20 12/08/18 05:11 12/08/18 06:32 Bedside Glucose 137 143 Urine Color YELLOW Urine Clarity CLEAR Urine pH 6.0 Urine Specific [place] 1.008 Urine Ketones NEGATIVE Urine Nitrite NEGATIVE Urine Bilirubin NEGATIVE Urine Urobilinogen NEGATIVE Urine Leukocyte Esterase TRACE A Urine Microscopic RBC 1 Urine Microscopic WBC 4 Urine Hemoglobin NEGATIVE Urine Glucose NEGATIVE Urine Total Protein NEGATIVE White Blood Count 10.9 #H Red Blood Count 3.13 L Hemoglobin 8.2 L Hematocrit 26.6 L Mean Corpuscular Volume 85.0 Mean Corpuscular 26.2 L Hemoglobin Mean Corpuscular 30.8 L Hemoglobin Concent Red Cell Distribution 17.4 H Width Platelet Count 305 Mean Platelet Volume 11.2 H Immature Granulocytes % 0.600 H Neutrophils % 82.5 H Lymphocytes % 8.1 L Monocytes % 5.7 Eosinophils % 2.2 Basophils % 0.9 Nucleated Red Blood 0.0 Cells % Immature Granulocytes # 0.060 H Neutrophils # 9.0 H Lymphocytes # 0.9 Monocytes # 0.6 Eosinophils # 0.2 Basophils # 0.1 Nucleated Red Blood 0.0 Cells # Sodium Level 139 Potassium Level 4.5 Chloride Level 106 Carbon Dioxide Level 26 Anion Gap 7 Blood Urea Nitrogen 19 Creatinine 0.31 L Est Glomerular Filtrat Rate mL/min Glucose Level 155 Calcium Level 8.6 Test 12/08/18 07:53 Bedside Glucose 147 Subjective 24 Hr Interval Summary Free Text/Dictation Patient has no complaints Exam/Review of Systems Exam Vitals Vital Signs Date Temp Pulse Resp B/P (MAP) Pulse Ox O2 O2 Flow FiO2 Time Delivery Rate 12/08/18 76 12:34 12/08/18 99 5.0 28 11:58 12/08/18 20 Aerosol 11:57 T Tube 12/08/18 98.2 92/43 (59) 11:27 Intake and Output 12/07/18 12/07/18 12/08/18 1515:00 23:00 07:00 IntakeIntake Total 930 ml 880 ml OutputOutput Total 1800 ml 1100 ml BalanceBalance -870 ml -220 ml Constitutional: well developed Head: normocephalic, atraumatic Neck: supple Respiratory: diminished breath sounds Cardiovascular: regular rate and rhythm Gastrointestinal: soft, non-tender Extremities: normal pulses Results Results 24hrs Laboratory Tests Test 12/07/18 13:02 12/07/18 18:02 12/07/18 20:39 12/07/18 21:09 Bedside Glucose 124 155 189 Lactic Acid Level 1.1 Procalcitonin 1.93 H Test 12/08/18 01:06 12/08/18 02:20 12/08/18 05:11 12/08/18 06:32 Bedside Glucose 137 143 Urine Color YELLOW Urine Clarity CLEAR Urine pH 6.0 Urine Specific [place] 1.008 Urine Ketones NEGATIVE Urine Nitrite NEGATIVE Urine Bilirubin NEGATIVE Urine Urobilinogen NEGATIVE Urine Leukocyte Esterase TRACE A Urine Microscopic RBC 1 Urine Microscopic WBC 4 Urine Hemoglobin NEGATIVE Urine Glucose NEGATIVE Urine Total Protein NEGATIVE White Blood Count 10.9 #H Red Blood Count 3.13 L Hemoglobin 8.2 L Hematocrit 26.6 L Mean Corpuscular Volume 85.0 Mean Corpuscular 26.2 L Hemoglobin Mean Corpuscular 30.8 L Hemoglobin Concent Red Cell Distribution 17.4 H Width Platelet Count 305 Mean Platelet Volume 11.2 H Immature Granulocytes % 0.600 H Neutrophils % 82.5 H Lymphocytes % 8.1 L Monocytes % 5.7 Eosinophils % 2.2 Basophils % 0.9 Nucleated Red Blood 0.0 Cells % Immature Granulocytes # 0.060 H Neutrophils # 9.0 H Lymphocytes # 0.9 Monocytes # 0.6 Eosinophils # 0.2 Basophils # 0.1 Nucleated Red Blood 0.0 Cells # Sodium Level 139 Potassium Level 4.5 Chloride Level 106 Carbon Dioxide Level 26 Anion Gap 7 Blood Urea Nitrogen 19 Creatinine 0.31 L Est Glomerular Filtrat Rate mL/min Glucose Level 155 Calcium Level 8.6 Test 12/08/18 07:53 Bedside Glucose 147 Medications Medication Current Medications IV Flush (NS 10 ml) 10 ml Q8 IV Last administered on 12/08/18 06:04; Admin Dose 10 ML; Start 11/26/18 at 22:00 Ascorbic Acid (Vitamin C) 500 mg DAILY GTB Last administered on 12/08/18 09:56; Admin Dose 500 MG; Start 11/27/18 at 09:00 Baclofen (Lioresal) 20 mg TID GTB Last administered on 12/08/18 09:56; Admin Dose 20 MG; Start 11/26/18 at 21:00 Cholecalciferol (Vitamin D) 2,000 unit DAILY GTB Last administered on 12/08/18 09:56; Admin Dose 2,000 UNIT; Start 11/27/18 at 09:00 Cyanocobalamin (Vitamin B12) 1,000 mcg DAILY GTB Last administered on 12/08/18 09:56; Admin Dose 1,000 MCG; Start 11/27/18 at 09:00 Miscellaneous Information 1 ea NOTE XX ; Start 11/26/18 at 18:30 Glucose (Glutose) 15 gm Q15M PRN PO DECREASED GLUCOSE; Start 11/26/18 at 18:30 Glucose (Glutose) 22.5 gm Q15M PRN PO DECREASED GLUCOSE; Start 11/26/18 at 18:30 Dextrose (D50w Syringe) 25 ml Q15M PRN IV DECREASED GLUCOSE; Start 11/26/18 at 18:30 Dextrose (D50w Syringe) 50 ml Q15M PRN IV DECREASED GLUCOSE; Start 11/26/18 at 18:30 Glucagon (Glucagen) 1 mg Q15M PRN IM DECREASED GLUCOSE; Start 11/26/18 at 18:30 Glucose (Glutose) 15 gm Q15M PRN BUCCAL DECREASED GLUCOSE; Start 11/26/18 at 18:30 Diagnostic Test (Pha) (Accu-Chek) 1 ea 02 XX Last administered on 12/07/18 02:00; Admin Dose 1 EA; Start 11/27/18 at 02:00 Insulin Aspart (Novolog Insulin Pen) NOVOLOG *MILD* ALGORI... Q4 SC Last administered on 12/08/18 08:07; Admin Dose 1 UNIT; Start 11/27/18 at 00:00 Collagenase (Santyl) 1 applic PRN PRN TOP .WOUND; Start 11/27/18 at 09:00 Lorazepam (Ativan) 1 mg Q2H PRN IV SEIZURES Last administered on 11/29/18 14:39; Admin Dose 1 MG; Start 11/27/18 at 18:00 Aspirin (Aspirin) 81 mg DAILY GTB Last administered on 12/08/18 09:56; Admin Dose 81 MG; Start 11/29/18 at 10:00 Levetiracetam 100 ml @ 400 mls/hr Q12 IVPB Last administered on 12/08/18 09:58; Admin Dose 400 MLS/HR; Start 11/29/18 at 21:00 Acetaminophen (Tylenol Liquid) 650 mg Q4H PRN GTB MILD PAIN(1-3)OR ELEVATED TEMP Last administered on 12/07/18 20:26; Admin Dose 650 MG; Start 12/03/18 at 02:00 Sodium Hypochlorite (Dakin'S (Dilute )) 1 applic BID IRR Last administered on 12/08/18 09:57; Admin Dose 1 APPLIC; Start 12/03/18 at 11:24 Vancomycin HCl (Vanco Iv Per Pharmacy) VANCOMYCIN PER PHARMACY PER PROTOCOL XX ; Start 12/07/18 at 23:30 Meropenem/Sodium Chloride 50 ml @ 100 mls/hr Q8 IVPB Last administered on 12/08/18at 06:04; Admin Dose 100 MLS/HR; Start 12/07/18 at 22:30 Vancomycin/Sodium Chloride 250 ml @ 125 mls/hr Q12H IVPB ; Start 12/08/18 at 13:00 Miscellaneous Information (*Rx Drug Level Order Reminder*) VANCO TROUGH 12/09 @ 1,200 1200 ONCE XX ; Start 12/09/18 at 12:00; Stop 12/09/18 at 12:01 KALEY NO December 08, 2018 12:50
[2018-12-08] MEDS: VANCOMYCIN 750 MG (PMX) 250 ML IVPB SCH (13:15)
--- NOTE | 2018-12-08 14:29 | CONS ---
Assessment/Plan Assessment/Plan Hospital Course (Demo Recall) IMPRESSION: 1. Atrial fibrillation/atrial flutter with rapid ventricular response-now in SR 2. Hypotension/shock state, likely septic. 3. History of cardiomyopathy with mildly depressed left ventricular ejection fraction approximately 40% to 45%. 4. History of congestive heart failure, systolic, chronic. 5. Possible pneumonia. 6. Sepsis. 7. Leukocytosis. 8. Anemia requiring transfusions. 9. Hypernatremia. 10. Coagulopathy. 11. Urinary tract infection. 12. Seizures 14. hyperkalemia Recc: -Tele -serial ecg's -Continue abx's and f/u cx data -Continue keppra -Now on asa, follow for any bleeding complications -systemic anticoag held due to anemia requiring transfusions Consultation Date/Type/Reason Admit Date/Time Nov 26, 2018 at 20:42 Initial Consult Date 11/27/18 Type of Consult Cardiology Reason for Consultation AF Requesting Provider: NADEEN COH Date/Time of Note DATE: 12/08/18 TIME: 14:27 Exam/Review of Systems Vital Signs Vitals Vital Signs Date Temp Pulse Resp B/P (MAP) Pulse Ox O2 O2 Flow FiO2 Time Delivery Rate 12/08/18 76 12:34 12/08/18 99 5.0 28 11:58 12/08/18 20 Aerosol 11:57 T Tube 12/08/18 98.2 92/43 (59) 11:27 Intake and Output 12/07/18 12/07/18 12/08/18 1414:59 22:59 06:59 IntakeIntake Total 930 ml 880 ml OutputOutput Total 1800 ml 1100 ml BalanceBalance -870 ml -220 ml Exam Exam Review of Systems: CONSTITUTIONAL: No fevers, chills. PULMONARY: No sob CARDIOVASCULAR: No chest pain/palpitations GASTROINTESTINAL: No nausea/vomiting. GENITOURINARY: No hematuria/dysuria. MUSCULOSKELETAL: No myagias/arthalgias. PSYCHIATRIC: The patient denies depression. NEUROLOGIC: No weakness Constitutional: other (encephalopathic) Psych: no complaints Head: normocephalic ENMT: mucosa pink and moist Neck: supple, jvd (9 cm water) Respiratory: diminished breath sounds (at bases/B) Cardiovascular: regular rate and rhythm Gastrointestinal: soft Musculoskeletal: muscle weakness (generalized) Extremities: edema (none) Neurological: confused Labs Result Diagram: 12/08/18 0632 12/08/18 0632 Results 24hrs Laboratory Tests Test 12/07/18 18:02 12/07/18 20:39 12/07/18 21:09 12/08/18 01:06 Bedside Glucose 155 189 137 Lactic Acid Level 1.1 Procalcitonin 1.93 H Test 12/08/18 02:20 12/08/18 05:11 12/08/18 06:32 12/08/18 07:53 Urine Color YELLOW Urine Clarity CLEAR Urine pH 6.0 Urine Specific [place] 1.008 Urine Ketones NEGATIVE Urine Nitrite NEGATIVE Urine Bilirubin NEGATIVE Urine Urobilinogen NEGATIVE Urine Leukocyte Esterase TRACE A Urine Microscopic RBC 1 Urine Microscopic WBC 4 Urine Hemoglobin NEGATIVE Urine Glucose NEGATIVE Urine Total Protein NEGATIVE Bedside Glucose 143 147 White Blood Count 10.9 #H Red Blood Count 3.13 L Hemoglobin 8.2 L Hematocrit 26.6 L Mean Corpuscular Volume 85.0 Mean Corpuscular 26.2 L Hemoglobin Mean Corpuscular 30.8 L Hemoglobin Concent Red Cell Distribution 17.4 H Width Platelet Count 305 Mean Platelet Volume 11.2 H Immature Granulocytes % 0.600 H Neutrophils % 82.5 H Lymphocytes % 8.1 L Monocytes % 5.7 Eosinophils % 2.2 Basophils % 0.9 Nucleated Red Blood 0.0 Cells % Immature Granulocytes # 0.060 H Neutrophils # 9.0 H Lymphocytes # 0.9 Monocytes # 0.6 Eosinophils # 0.2 Basophils # 0.1 Nucleated Red Blood 0.0 Cells # Sodium Level 139 Potassium Level 4.5 Chloride Level 106 Carbon Dioxide Level 26 Anion Gap 7 Blood Urea Nitrogen 19 Creatinine 0.31 L Est Glomerular Filtrat Rate mL/min Glucose Level 155 Calcium Level 8.6 Test 12/08/18 13:13 Bedside Glucose 126 Medications Medications Current Medications IV Flush (NS 10 ml) 10 ml Q8 IV Last administered on 12/08/18at 13:16; Admin Dose 10 ML; Start 11/26/18 at 22:00 Ascorbic Acid (Vitamin C) 500 mg DAILY GTB Last administered on 12/08/18at 09:56; Admin Dose 500 MG; Start 11/27/18 at 09:00 Baclofen (Lioresal) 20 mg TID GTB Last administered on 12/08/18at 13:14; Admin Dose 20 MG; Start 11/26/18 at 21:00 Cholecalciferol (Vitamin D) 2,000 unit DAILY GTB Last administered on 12/08/18 09:56; Admin Dose 2,000 UNIT; Start 11/27/18 at 09:00 Cyanocobalamin (Vitamin B12) 1,000 mcg DAILY GTB Last administered on 12/08/18 09:56; Admin Dose 1,000 MCG; Start 11/27/18 at 09:00 Miscellaneous Information 1 ea NOTE XX ; Start 11/26/18 at 18:30 Glucose (Glutose) 15 gm Q15M PRN PO DECREASED GLUCOSE; Start 11/26/18 at 18:30 Glucose (Glutose) 22.5 gm Q15M PRN PO DECREASED GLUCOSE; Start 11/26/18 at 18:30 Dextrose (D50w Syringe) 25 ml Q15M PRN IV DECREASED GLUCOSE; Start 11/26/18 at 18:30 Dextrose (D50w Syringe) 50 ml Q15M PRN IV DECREASED GLUCOSE; Start 11/26/18 at 18:30 Glucagon (Glucagen) 1 mg Q15M PRN IM DECREASED GLUCOSE; Start 11/26/18 at 18:30 Glucose (Glutose) 15 gm Q15M PRN BUCCAL DECREASED GLUCOSE; Start 11/26/18 at 18 :30 Diagnostic Test (Pha) (Accu-Chek) 1 ea 02 XX Last administered on 12/07/18at 02:00; Admin Dose 1 EA; Start 11/27/18 at 02:00 Insulin Aspart (Novolog Insulin Pen) NOVOLOG *MILD* ALGORI... Q4 SC Last administered on 12/08/18 08:07; Admin Dose 1 UNIT; Start 11/27/18 at 00:00 Collagenase (Santyl) 1 applic PRN PRN TOP .WOUND; Start 11/27/18 at 09:00 Lorazepam (Ativan) 1 mg Q2H PRN IV SEIZURES Last administered on 11/29/18at 14:39; Admin Dose 1 MG; Start 11/27/18 at 18:00 Aspirin (Aspirin) 81 mg DAILY GTB Last administered on 12/08/18 09:56; Admin Dose 81 MG; Start 11/29/18 at 10:00 Levetiracetam 100 ml @ 400 mls/hr Q12 IVPB Last administered on 12/08/18 09:58; Admin Dose 400 MLS/HR; Start 11/29/18 at 21:00 Acetaminophen (Tylenol Liquid) 650 mg Q4H PRN GTB MILD PAIN(1-3)OR ELEVATED TEMP Last administered on 12/07/18 20:26; Admin Dose 650 MG; Start 12/03/18 at 02:00 Sodium Hypochlorite (Dakin'S (Dilute )) 1 applic BID IRR Last administered on 12/08/18 09:57; Admin Dose 1 APPLIC; Start 12/03/18 at 11:24 Vancomycin HCl (Vanco Iv Per Pharmacy) VANCOMYCIN PER PHARMACY PER PROTOCOL XX ; Start 12/07/18 at 23:30 Meropenem/Sodium Chloride 50 ml @ 100 mls/hr Q8 IVPB Last administered on 12/08/18 06:04; Admin Dose 100 MLS/HR; Start 12/07/18 at 22:30 Vancomycin/Sodium Chloride 250 ml @ 125 mls/hr Q12H IVPB Last administered on 12/08/18at 13:15; Admin Dose 125 MLS/HR; Start 12/08/18 at 13:00 Miscellaneous Information (*Rx Drug Level Order Reminder*) VANCO TROUGH 12/09 @ 1,200 1200 ONCE XX ; Start 12/09/18 at 12:00; Stop 12/09/18 at 12:01 MAITE VAZQUEZ December 08, 2018 14:29
--- NOTE | 2018-12-08 17:26 | CONS ---
Assessment/Plan Assessment/Plan Hospital Course (Demo Recall) # sepsis, endovascular infection, respiratory - sepsis on 12/07/2018, unclear etiology. procalcitonin was 1.96 on 12/07/2018, and so we suspect this is caused by bacterial infection - s/p septic shock due to probable UTI - s/p coag negative Staph in blood cultures on 11/26/2018, probable contaminant - colonization of the airway by pseudomonas and corynebacteria - h/o sepsis due to bacteremia and pneumonia - h/o bacteremia: blood cultures grew enterococcus faecalis on 09/17/2018 secondary to R hip wound infection as its wound culture on 09/16/2018 grew E. faecalis as well - h/o recurrent acute on chronic hypoxemic respiratory failure secondary to secretion retention, mucous plugging, major left lung atelectasis, severe shunting - h/o probable aspiration pneumonia. - h/o pneumonia due to pseudomonas on 09/30/2018. s/p Levaquin (10/03/18- 10/07/2018), Meropenem (restart 09/30/2018-10/03/18, 10/12/18 - 10/19/2018) and empiric Amikacin (09/30/18-10/03/18) - H/o intubation on 09/30/2018 - H/o tracheostomy on 10/04/2018 - h/o pseudomonas in urine culture on 09/17/2018 with mild pyuria; treated with Cefepime (09/20/2018-09/25/2018) # infection of wound, OM of R hip, pressure ulcer - colonization of the wound of R hip by pseudomonas (wound culture on 10/31/2018), acinetobacter (wound culture on 11/27/2018) - h/o repeat debridement at [facility] on 11/03/[address]. [address] Pierson, her plastic surgeon at [facility], the wound appeared clean during the I&D (my conversation with him on 11/06/2018) - H/o stage sacral decubitus ulcer extending to bilateral buttocks. She reportedly had total hip dislocation and exposed femoral head. CT pelvis showed e/o OM. Pt complete IV vancomycin (09/17/2018-10/29/2018) for sacral OM associated with E. faecalis - H/o sharp excisional debridement down to and including bone of the sacrum on 08/22/2018 and 09/19/2018 - H/o excision of R hip ulcer, girdlestone resection arthroplasty and flap reconstruction 09/23/2018. The surgical pathology showed osteomyelitis of R hip bone, soft tissue cellulitis, and bony margin of excision was free of the disease - according to Dr. Pierson who performed the wound debridement, Pt needs wound care until granulation tissue builds and infection is cleared. Then he would decide if Pt should get repeat closure or not - XR of R hip on 11/09/2009 showed the remaining R femoral shaft in transverse orientation and with lateral deviation - h/o removal of devitalized/necrotic tissue by Dr. Pierson on 10/07/2018 # renal/ - funguria, recurrent - hematuria on 11/26/2018 - h/o moderate L hydronephrosis per renal US # heme, neuro - h/o acute on chronic anemia requiring PRBC - chronic metabolic encephalopathy - supranuclear palsy # endo, cardiac - diabetes mellitus - A fib with RVR - chronic diastolic HF (EF 40-45% with grade 1 DD per 2D Echo 10/24/2018) - h/o hypertension # allergy - penicillin allergy (throat swelling) but Pt tolerates cefepime, ceftazidime, meropenem recommendations: - pending results: blood cultures x2, resp cultrue, urine culture, wound culture from R hip and wound culture from sacrum - continue vancomycin and meropenem (restart 12/07/2018-) - Pt completed 3 day course of fluconazole (12/04-12/06/2018). Ramires was changed on 12/04/2018. Consultation Date/Type/Reason Admit Date/Time Nov 26, 2018 at 20:42 Initial Consult Date 11/26/18 Type of Consult ID Requesting Provider: NADEEN CHO Date/Time of Note DATE: 12/08/18 TIME: 17:21 24 HR Interval Summary Subjective hx not possible: pt non-verbal Exam/Review of Systems Exam Vitals Vital Signs Date Temp Pulse Resp B/P (MAP) Pulse Ox O2 O2 Flow FiO2 Time Delivery Rate 12/08/18 98 18 100 Aerosol 5.0 28 17:18 T Tube 12/08/18 99.0 115/46 15:18 (69) Intake and Output 12/07/18 12/07/1819 1515:00 23:00 07:00 IntakeIntake Total 930 ml 880 ml OutputOutput Total 1800 ml 1100 ml BalanceBalance -870 ml -220 ml Constitutional: non-verbal, frail Psych: confusion Head: normocephalic, atraumatic Eyes: nl conjunctiva, nl lids, nl sclera ENMT: nl external ears & nose, mucosa pink and moist Neck: other (slightly extended) Respiratory: diminished breath sounds Cardiovascular: regular rate and rhythm, nl pulses Gastrointestinal: soft, non-tender, tender (GT) Genitourinary - Female: other (FC) Musculoskeletal: other (contractured, R hip wound with Femur) Extremities: No edema Neurological: unresponsive Skin: rash or lesions Results Result Diagram: 12/08/18 0632 12/08/18 0632 Results 24hrs Laboratory Tests Test 12/07/18 18:02 12/07/18 20:39 12/07/18 21:09 12/08/18 01:06 Bedside Glucose 155 189 137 Lactic Acid Level 1.1 Procalcitonin 1.93 H Test 12/08/18 02:20 12/08/18 05:11 12/08/18 06:32 12/08/18 07:53 Urine Color YELLOW Urine Clarity CLEAR Urine pH 6.0 Urine Specific [place] 1.008 Urine Ketones NEGATIVE Urine Nitrite NEGATIVE Urine Bilirubin NEGATIVE Urine Urobilinogen NEGATIVE Urine Leukocyte Esterase TRACE A Urine Microscopic RBC 1 Urine Microscopic WBC 4 Urine Hemoglobin NEGATIVE Urine Glucose NEGATIVE Urine Total Protein NEGATIVE Bedside Glucose 143 147 White Blood Count 10.9 #H Red Blood Count 3.13 L Hemoglobin 8.2 L Hematocrit 26.6 L Mean Corpuscular Volume 85.0 Mean Corpuscular 26.2 L Hemoglobin Mean Corpuscular 30.8 L Hemoglobin Concent Red Cell Distribution 17.4 H Width Platelet Count 305 Mean Platelet Volume 11.2 H Immature Granulocytes % 0.600 H Neutrophils % 82.5 H Lymphocytes % 8.1 L Monocytes % 5.7 Eosinophils % 2.2 Basophils % 0.9 Nucleated Red Blood 0.0 Cells % Immature Granulocytes # 0.060 H Neutrophils # 9.0 H Lymphocytes # 0.9 Monocytes # 0.6 Eosinophils # 0.2 Basophils # 0.1 Nucleated Red Blood 0.0 Cells # Sodium Level 139 Potassium Level 4.5 Chloride Level 106 Carbon Dioxide Level 26 Anion Gap 7 Blood Urea Nitrogen 19 Creatinine 0.31 L Est Glomerular Filtrat Rate mL/min Glucose Level 155 Calcium Level 8.6 Test 12/08/18 13:13 Bedside Glucose 126 Medications Medication Current Medications IV Flush (NS 10 ml) 10 ml Q8 IV Last administered on 12/08/18 13:16; Admin Dose 10 ML; Start 11/26/18 at 22:00 Ascorbic Acid (Vitamin C) 500 mg DAILY GTB Last administered on 12/08/18 09:56; Admin Dose 500 MG; Start 11/27/18 at 09:00 Baclofen (Lioresal) 20 mg TID GTB Last administered on 12/08/18 13:14; Admin Dose 20 MG; Start 11/26/18 at 21:00 Cholecalciferol (Vitamin D) 2,000 unit DAILY GTB Last administered on 12/08/18 09:56; Admin Dose 2,000 UNIT; Start 11/27/18 at 09:00 Cyanocobalamin (Vitamin B12) 1,000 mcg DAILY GTB Last administered on 12/08/18 09:56; Admin Dose 1,000 MCG; Start 11/27/18 at 09:00 Miscellaneous Information 1 ea NOTE XX ; Start 11/26/18 at 18:30 Glucose (Glutose) 15 gm Q15M PRN PO DECREASED GLUCOSE; Start 11/26/18 at 18:30 Glucose (Glutose) 22.5 gm Q15M PRN PO DECREASED GLUCOSE; Start 11/26/18 at 18:30 Dextrose (D50w Syringe) 25 ml Q15M PRN IV DECREASED GLUCOSE; Start 11/26/18 at 18:30 Dextrose (D50w Syringe) 50 ml Q15M PRN IV DECREASED GLUCOSE; Start 11/26/18 at 18:30 Glucagon (Glucagen) 1 mg Q15M PRN IM DECREASED GLUCOSE; Start 11/26/18 at 18:30 Glucose (Glutose) 15 gm Q15M PRN BUCCAL DECREASED GLUCOSE; Start 11/26/18 at 18:30 Diagnostic Test (Pha) (Accu-Chek) 1 ea 02 XX Last administered on 12/07/18 02:00; Admin Dose 1 EA; Start 11/27/18 at 02:00 Insulin Aspart (Novolog Insulin Pen) NOVOLOG *MILD* ALGORI... Q4 SC Last administered on 12/08/18 08:07; Admin Dose 1 UNIT; Start 11/27/18 at 00:00 Collagenase (Santyl) 1 applic PRN PRN TOP .WOUND; Start 11/27/18 at 09:00 Lorazepam (Ativan) 1 mg Q2H PRN IV SEIZURES Last administered on 11/29/18 14:39; Admin Dose 1 MG; Start 11/27/18 at 18:00 Aspirin (Aspirin) 81 mg DAILY GTB Last administered on 12/08/18 09:56; Admin Dose 81 MG; Start 11/29/18 at 10:00 Levetiracetam 100 ml @ 400 mls/hr Q12 IVPB Last administered on 12/08/18 09:58; Admin Dose 400 MLS/HR; Start 11/29/18 at 21:00 Acetaminophen (Tylenol Liquid) 650 mg Q4H PRN GTB MILD PAIN(1-3)OR ELEVATED TEMP Last administered on 12/07/18 20:26; Admin Dose 650 MG; Start 12/03/18 at 02:00 Sodium Hypochlorite (Dakin'S (Dilute )) 1 applic BID IRR Last administered on 12/08/18 09:57; Admin Dose 1 APPLIC; Start 12/03/18 at 11:24 Vancomycin HCl (Vanco Iv Per Pharmacy) VANCOMYCIN PER PHARMACY PER PROTOCOL XX ; Start 12/07/18 at 23:30 Meropenem/Sodium Chloride 50 ml @ 100 mls/hr Q8 IVPB Last administered on 12/08/18 15:01; Admin Dose 100 MLS/HR; Start 12/07/18 at 22:30 Vancomycin/Sodium Chloride 250 ml @ 125 mls/hr Q12H IVPB Last administered on 12/08/18 13:15; Admin Dose 125 MLS/HR; Start 12/08/18 at 13:00 Miscellaneous Information (*Rx Drug Level Order Reminder*) VANCO TROUGH 12/09 @ 1,200 1200 ONCE XX ; Start 12/09/18 at 12:00; Stop 12/09/18 at 12:01 IRWIN SKELTON M.D. December 08, 2018 17:26
[2018-12-09] VITALS (10 sets, daily range): BP systolic 83–114; BP diastolic 40–56; PULSE 62–86; RESP 17–19
[2018-12-09] MEDS: VANCOMYCIN 750 MG (PMX) 250 ML IVPB SCH ×2 (00:57→12:27)
[2018-12-09] MEDS: INSULIN ASPART [NOVOLOG] 3 ML PEN SC SCH ×5 (00:58→18:00)
[2018-12-09] MEDS: ACCU-CHEK XX SCH (02:00)
[2018-12-09] MEDS: MEROPENEM 1 GM/50ML(PMX) 50 ML IVPB SCH ×3 (05:27→22:11)
[2018-12-09] MEDS: LEVETIRACETAM 1000 MG (PMX) 100 ML IVPB SCH ×2 (08:37→21:36)
--- NOTE | 2018-12-09 08:37 | CONS ---
Assessment/Plan Assessment/Plan Assessment/Plan (Daily) Pneumonia Supra nuclear palsy History of hypertension History of type 2 diabetes Failure to thrive Osteomyelitis right hip This last time is seen patient she is not significantly changed remains c ognitively impaired, cannot do any activities of daily living, noncommunicative. I will contact family members to schedule a follow-up appointment patient at least needs to have a POLST form prior to discharge Consultation Date/Type/Reason Admit Date/Time Nov 26, 2018 at 20:42 Initial Consult Date 11/27/18 Requesting Provider: NADEEN CHO Date/Time of Note DATE: 12/09/18 TIME: 08:36 Exam/Review of Systems Exam Vitals Vital Signs Date Temp Pulse Resp B/P (MAP) Pulse Ox O2 O2 Flow FiO2 Time Delivery Rate 12/09/18 97.7 67 19 112/46 100 Trach 08:14 (68) Collar 12/09/18 5.0 28 05:20 Intake and Output 12/08/18 12/08/18 12/09/18 1515:00 23:00 07:00 IntakeIntake Total 1260 ml 850 ml OutputOutput Total 1000 ml 1200 ml BalanceBalance 260 ml -350 ml Results Result Diagram: 12/08/18 0632 12/08/18 0632 Results 24hrs Laboratory Tests Test 12/08/18 13:13 12/08/18 18:06 12/08/18 20:25 12/09/18 00:56 Bedside Glucose 126 148 163 133 Test 12/09/18 05:24 Bedside Glucose 130 Medications Medication Current Medications IV Flush (NS 10 ml) 10 ml Q8 IV Last administered on 12/09/18at 05:27; Admin Dose 10 ML; Start 11/26/18 at 22:00 Ascorbic Acid (Vitamin C) 500 mg DAILY GTB Last administered on 12/08/18 09:56; Admin Dose 500 MG; Start 11/27/18 at 09:00 Baclofen (Lioresal) 20 mg TID GTB Last administered on 12/08/18at 20:29; Admin Dose 20 MG; Start 11/26/18 at 21:00 Cholecalciferol (Vitamin D) 2,000 unit DAILY GTB Last administered on 12/08/18 09:56; Admin Dose 2,000 UNIT; Start 11/27/18 at 09:00 Cyanocobalamin (Vitamin B12) 1,000 mcg DAILY GTB Last administered on 12/08/18 09:56; Admin Dose 1,000 MCG; Start 11/27/18 at 09:00 Miscellaneous Information 1 ea NOTE XX ; Start 11/26/18 at 18:30 Glucose (Glutose) 15 gm Q15M PRN PO DECREASED GLUCOSE; Start 11/26/18 at 18:30 Glucose (Glutose) 22.5 gm Q15M PRN PO DECREASED GLUCOSE; Start 11/26/18 at 18:30 Dextrose (D50w Syringe) 25 ml Q15M PRN IV DECREASED GLUCOSE; Start 11/26/18 at 18:30 Dextrose (D50w Syringe) 50 ml Q15M PRN IV DECREASED GLUCOSE; Start 11/26/18 at 18:30 Glucagon (Glucagen) 1 mg Q15M PRN IM DECREASED GLUCOSE; Start 11/26/18 at 18:30 Glucose (Glutose) 15 gm Q15M PRN BUCCAL DECREASED GLUCOSE; Start 11/26/18 at 18:30 Diagnostic Test (Pha) (Accu-Chek) 1 ea 02 XX Last administered on 12/07/18 02:00; Admin Dose 1 EA; Start 11/27/18 at 02:00 Insulin Aspart (Novolog Insulin Pen) NOVOLOG *MILD* ALGORI... Q4 SC Last administered on 12/08/18 20:42; Admin Dose 1 UNIT; Start 11/27/18 at 00:00 Collagenase (Santyl) 1 applic PRN PRN TOP .WOUND; Start 11/27/18 at 09:00 Lorazepam (Ativan) 1 mg Q2H PRN IV SEIZURES Last administered on 11/29/18 14:39; Admin Dose 1 MG; Start 11/27/18 at 18:00 Aspirin (Aspirin) 81 mg DAILY GTB Last administered on 12/08/18 09:56; Admin Dose 81 MG; Start 11/29/18 at 10:00 Levetiracetam 100 ml @ 400 mls/hr Q12 IVPB Last administered on 12/08/18 20:28; Admin Dose 400 MLS/HR; Start 11/29/18 at 21:00 Acetaminophen (Tylenol Liquid) 650 mg Q4H PRN GTB MILD PAIN(1-3)OR ELEVATED TEMP Last administered on 5/4/19at 20:26; Admin Dose 650 MG; Start 12/03/18 at 02:00 Sodium Hypochlorite (Dakin'S (Dilute )) 1 applic BID IRR Last administered on 12/08/18at 20:28; Admin Dose 1 APPLIC; Start 12/03/18 at 11:24 Vancomycin HCl (Vanco Iv Per Pharmacy) VANCOMYCIN PER PHARMACY PER PROTOCOL XX ; Start 12/07/18 at 23:30 Meropenem/Sodium Chloride 50 ml @ 100 mls/hr Q8 IVPB Last administered on 12/09/18at 05:27; Admin Dose 100 MLS/HR; Start 12/07/18 at 22:30 Vancomycin/Sodium Chloride 250 ml @ 125 mls/hr Q12H IVPB Last administered on 12/09/18at 00:57; Admin Dose 125 MLS/HR; Start 12/08/18 at 13:00 Miscellaneous Information (*Rx Drug Level Order Reminder*) VANCO TROUGH 12/09 @ 1,200 1200 ONCE XX ; Start 12/09/18 at 12:00; Stop 12/09/18 at 12:01 GRACE SMITH December 09, 2018 08:37
[2018-12-09] MEDS: ASCORBIC ACID 500 MG TAB GTB SCH (08:38)
[2018-12-09] MEDS: CHOLECALCIFEROL 2,000 UNIT CAP GTB SCH (08:38)
[2018-12-09] MEDS: CYANOCOBALAMIN 500 MCG TAB GTB SCH (08:38)
[2018-12-09] MEDS: BACLOFEN 10 MG TAB GTB SCH ×3 (08:38→21:35)
[2018-12-09] MEDS: ASPIRIN 81 MG TAB GTB SCH (08:38)
[2018-12-09] MEDS: BALSAM PERU/CASTOR OIL 60 GM TUBE TOP SCH (08:39)
--- NOTE | 2018-12-09 10:56 | CONS ---
Assessment/Plan Assessment/Plan Hospital Course (Demo Recall) # sepsis, endovascular infection, respiratory - sepsis on 12/07/2018, unclear etiology. procalcitonin was 1.96 on 12/07/2018, and so we suspect this is caused by bacterial infection; - Bacteremia - blood cultures 12/07/18 are growing GNR - s/p septic shock due to probable UTI - s/p coag negative Staph in blood cultures on 11/26/2018, probable contaminant - colonization of the airway by pseudomonas and corynebacteria - h/o sepsis due to bacteremia and pneumonia - h/o bacteremia: blood cultures grew enterococcus faecalis on 09/17/2018 secondary to R hip wound infection as its wound culture on 09/16/2018 grew E. faecalis as well - h/o recurrent acute on chronic hypoxemic respiratory failure secondary to secretion retention, mucous plugging, major left lung atelectasis, severe shunting - h/o probable aspiration pneumonia. - h/o pneumonia due to pseudomonas on 09/30/2018. s/p Levaquin (10/03/18-10/07/2018), Meropenem (restart 09/30/2018-10/03/18, 10/12/18 - 10/19/2018) and empiric Amikacin (09/30/18-10/03/18) - H/o intubation on 09/30/2018 - H/o tracheostomy on 10/04/2018 - h/o pseudomonas in urine culture on 09/17/2018 with mild pyuria; treated with Cefepime (09/20/2018-09/25/2018) # infection of wound, OM of R hip, pressure ulcer - colonization of the wound of R hip by pseudomonas (wound culture on ), acinetobacter (wound culture on 11/27/2018) - h/o repeat debridement at [facility] on 11/03/[address]. [address] Pierson, her plastic surgeon at [facility], the wound appeared clean during the I&D (my conversation with him on 11/06/2018) - H/o stage sacral decubitus ulcer extending to bilateral buttocks. She reportedly had total hip dislocation and exposed femoral head. CT pelvis showed e/o OM. Pt complete IV vancomycin (09/17/2018-10/29/2018) for sacral OM associated with E. faecalis - H/o sharp excisional debridement down to and including bone of the sacrum on 08/22/2018 and 09/19/2018 - H/o excision of R hip ulcer, girdlestone resection arthroplasty and flap reconstruction 09/23/2018. The surgical pathology showed osteomyelitis of R hip bone, soft tissue cellulitis, and bony margin of excision was free of the disease - according to Dr. Pierson who performed the wound debridement, Pt needs wound care until granulation tissue builds and infection is cleared. Then he would decide if Pt should get repeat closure or not - XR of R hip on 11/09/2009 showed the remaining R femoral shaft in transverse orientation and with lateral deviation - h/o removal of devitalized/necrotic tissue by Dr. Pierson on 10/07/2018 # renal/ - funguria, recurrent - hematuria on 11/26/2018 - h/o moderate L hydronephrosis per renal US # heme, neuro - h/o acute on chronic anemia requiring PRBC - chronic metabolic encephalopathy - supranuclear palsy # endo, cardiac - diabetes mellitus - A fib with RVR - chronic diastolic HF (EF 40-45% with grade 1 DD per 2D Echo 10/24/2018) - h/o hypertension # allergy - penicillin allergy (throat swelling) but Pt tolerates cefepime, ceftazidime, meropenem Recommendations: - Pending results: blood cultures x2 (GNR), urine culture (NGTD and UA neg), wound culture from R hip and wound culture from sacrum (NGTD), sputum (GNR) - Continue vancomycin and meropenem (restart 12/07/2018-) - Pt completed 3 day course of fluconazole (12/04-12/06/2018). Ramires was changed on 12/04/2018. Management was d/w JAY Schaffer and with Dr. Breaux. Thank you Consultation Date/Type/Reason Admit Date/Time Nov 26, 2018 at 20:42 Initial Consult Date 11/27/18 Requesting Provider: NADEEN CHO Date/Time of Note DATE: 12/09/18 TIME: 10:48 24 HR Interval Summary Free Text/Dictation Patient is unable to contribute to ROS d/t chronic encephalopathy. D/w JAY Schaffer, blood cultures growing GNR. Afebrile, WBC improved 10.9. Exam/Review of Systems Exam Vitals Vital Signs Date Temp Pulse Resp B/P (MAP) Pulse Ox O2 O2 Flow FiO2 Time Delivery Rate 12/09/18 5.0 28 09:12 12/09/18 97.7 67 19 112/46 100 Trach 08:14 (68) Collar Intake and Output 12/08/18 12/08/18 12/09/18 1515:00 23:00 07:00 IntakeIntake Total 1260 ml 850 ml OutputOutput Total 1000 ml 1200 ml BalanceBalance 260 ml -350 ml Allergies Coded Allergies Penicillins (Verified Allergy, Unknown, 07/06/13) morphine (Verified Adverse Reaction, Mild, "LOOPY", 10/08/18) Uncoded Allergies PLASTIC TAPE ( Allergy, Unknown, 04/01/07) Constitutional: non-verbal, frail, other (chronically debilitated ) Psych: confusion Head: normocephalic, atraumatic Eyes: nl conjunctiva, nl lids, nl sclera ENMT: nl external ears & nose, nl nasal mucosa & septum, mucosa pink and moist (no thrush noted ) Neck: supple, other (slightly extended ) Respiratory: normal air movement, diminished breath sounds, other (trach site midline, c/d/i, on a Tpiece at 28% fio2) Cardiovascular: regular rate and rhythm, nl pulses Gastrointestinal: soft, non-tender, bowel sounds (normoactive ), other (PEG site is c/d/i) Genitourinary - Female: other (f/c draining yellow urine ) Musculoskeletal: other (contractures, R hip wound; ivan foot drop) Extremities: normal pulses; No edema Neurological: other (no eye tracking, no attempts to follow commands or communicate) Skin: nl turgor, other (reviewed nsg notes/pics); No rash or lesions Results Result Diagram: 12/08/18 0632 12/08/18 0632 Results 24hrs Laboratory Tests Test 12/08/18 13:13 12/08/18 18:06 12/08/18 20:25 12/09/18 00:56 Bedside Glucose 126 148 163 133 Test 12/09/18 05:24 12/09/18 08:41 Bedside Glucose 130 138 Imaging Imaging CXR 12/07/18 IMPRESSION: Interval decrease interstitial edema and small bilateral pleural effusions. Tracheostomy tube in place. Left PICC line as described above. Medications Medication Current Medications IV Flush (NS 10 ml) 10 ml Q8 IV Last administered on 12/09/18 05:27; Admin Dose 10 ML; Start 11/26/18 at 22:00 Ascorbic Acid (Vitamin C) 500 mg DAILY GTB Last administered on 12/09/18 08:38; Admin Dose 500 MG; Start 11/27/18 at 09:00 Baclofen (Lioresal) 20 mg TID GTB Last administered on 12/09/18 08:38; Admin Dose 20 MG; Start 11/26/18 at 21:00 Cholecalciferol (Vitamin D) 2,000 unit DAILY GTB Last administered on 12/09/18 08:38; Admin Dose 2,000 UNIT; Start 11/27/18 at 09:00 Cyanocobalamin (Vitamin B12) 1,000 mcg DAILY GTB Last administered on 12/09/18 08:38; Admin Dose 1,000 MCG; Start 11/27/18 at 09:00 Miscellaneous Information 1 ea NOTE XX ; Start 11/26/18 at 18:30 Glucose (Glutose) 15 gm Q15M PRN PO DECREASED GLUCOSE; Start 11/26/18 at 18:30 Glucose (Glutose) 22.5 gm Q15M PRN PO DECREASED GLUCOSE; Start 11/26/18 at 18:30 Dextrose (D50w Syringe) 25 ml Q15M PRN IV DECREASED GLUCOSE; Start 11/26/18 at 18:30 Dextrose (D50w Syringe) 50 ml Q15M PRN IV DECREASED GLUCOSE; Start 11/26/18 at 18:30 Glucagon (Glucagen) 1 mg Q15M PRN IM DECREASED GLUCOSE; Start 11/26/18 at 18:30 Glucose (Glutose) 15 gm Q15M PRN BUCCAL DECREASED GLUCOSE; Start 11/26/18 at 18:30 Diagnostic Test (Pha) (Accu-Chek) 1 ea 02 XX Last administered on 12/07/18 02:00; Admin Dose 1 EA; Start 11/27/18 at 02:00 Insulin Aspart (Novolog Insulin Pen) NOVOLOG *MILD* ALGORI... Q4 SC Last administered on 12/08/18at 20:42; Admin Dose 1 UNIT; Start 11/27/18 at 00:00 Collagenase (Santyl) 1 applic PRN PRN TOP .WOUND; Start 11/27/18 at 09:00 Lorazepam (Ativan) 1 mg Q2H PRN IV SEIZURES Last administered on 11/29/18 14:39; Admin Dose 1 MG; Start 11/27/18 at 18:00 Aspirin (Aspirin) 81 mg DAILY GTB Last administered on 12/09/18 08:38; Admin Dose 81 MG; Start 11/29/18 at 10:00 Levetiracetam 100 ml @ 400 mls/hr Q12 IVPB Last administered on 12/09/18 08:37; Admin Dose 400 MLS/HR; Start 11/29/18 at 21:00 Acetaminophen (Tylenol Liquid) 650 mg Q4H PRN GTB MILD PAIN(1-3)OR ELEVATED TEMP Last administered on 12/07/18 20:26; Admin Dose 650 MG; Start 12/03/18 at 02:00 Sodium Hypochlorite (Dakin'S (Dilute )) 1 applic BID IRR Last administered on 12/08/18 20:28; Admin Dose 1 APPLIC; Start 12/03/18 at 11:24 Vancomycin HCl (Vanco Iv Per Pharmacy) VANCOMYCIN PER PHARMACY PER PROTOCOL XX ; Start 12/07/18 at 23:30 Meropenem/Sodium Chloride 50 ml @ 100 mls/hr Q8 IVPB Last administered on 12/09/18 05:27; Admin Dose 100 MLS/HR; Start 12/07/18 at 22:30 Vancomycin/Sodium Chloride 250 ml @ 125 mls/hr Q12H IVPB Last administered on 12/09/18 00:57; Admin Dose 125 MLS/HR; Start 12/08/18 at 13:00 Miscellaneous Information (*Rx Drug Level Order Reminder*) VANCO TROUGH 12/09 @ 1,200 1200 ONCE XX ; Start 12/09/18 at 12:00; Stop 12/09/18 at 12:01 Cefepime HCl 50 ml @ 100 mls/hr Q12 IVPB ; Start 12/09/18 at 21:00; Status ZENON MOTA NP December 09, 2018 10:56
[2018-12-09] MEDS: SODIUM HYPOCHLORITE (1/40) 1 LITER BTL IRR SCH ×2 (12:26→21:36)
--- NOTE | 2018-12-09 13:17 | PN ---
Date/Time of Note Date/Time of Note DATE: 12/09/18 TIME: 13:09 Assessment/Plan VTE Prophylaxis Risk score (from Ns)>0 risk: 10 SCD applied (from Ns): Yes Pharmacological prophylaxis: other Lines/Catheters IV [facility]ter [facility] (from [facility]): PICC Line Central line still needed: Yes Urinary Cath still in place: Yes Reason Cath still needed: urinary retention Assessment/Plan Hospital Course No acute events overnight, patient remains afebrile however now with gram- positive rods bacteremia, continued on broad-spectrum antibiotics. Assessment/Plan -Sepsis with gram-negative rods bacteremia, continue antibiotics per ID. Dr. Owens is following in infection disease consultation. -New onset of seizures, continue Keppra. Dr. Sherman is following a neurology consultation. -Atrial fibrillation/ flutter with rapid ventricular response. Patient is currently in sinus rhythm. Dr. Monson is following in cardiology consultation. 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 Triplett at [facility]. -Right hip wound infection with OM of R hip, completed treatment with antibiotics. -Wound dehiscence, s/p repeat debridement at [facility] on 11/03/2018. -Diabetes -Chronic diastolic CHF -Dysphagia with GT -Anemia of chronic disease -Failure to thrive, Dr. Prieto is following in palliative care consultation. Further recommendations based on clinical course. Plan of care discussed with Dr. Shannon Result Diagram: 12/09/18 1102 12/08/18 0632 Results 24hrs Laboratory Tests Test 12/08/18 13:13 12/08/18 18:06 12/08/18 20:25 12/09/18 00:56 Bedside Glucose 126 148 163 133 Test 12/09/18 05:24 12/09/18 08:41 12/09/18 11:02 12/09/18 12:29 Bedside Glucose 130 138 114 White Blood Count 8.2 # Red Blood Count 3.54 L Hemoglobin 9.2 L Hematocrit 30.0 L Mean Corpuscular Volume 84.7 Mean Corpuscular 26.0 L Hemoglobin Mean Corpuscular 30.7 L Hemoglobin Concent Red Cell Distribution 17.2 H Width Platelet Count 391 # Mean Platelet Volume 10.9 H Immature Granulocytes % 0.500 H Neutrophils % 73.0 Lymphocytes % 13.7 L Monocytes % 8.1 Eosinophils % 3.6 Basophils % 1.1 Nucleated Red Blood 0.0 Cells % Immature Granulocytes # 0.040 H Neutrophils # 6.0 Lymphocytes # 1.1 Monocytes # 0.7 Eosinophils # 0.3 Basophils # 0.1 Nucleated Red Blood 0.0 Cells # Exam/Review of Systems Exam Vitals Vital Signs Date Temp Pulse Resp B/P (MAP) Pulse Ox O2 O2 Flow FiO2 Time Delivery Rate 12/09/18 94/43 (60) 12:56 12/09/18 72 12:00 12/09/18 97.9 19 100 Trach 11:49 Collar 12/09/18 5.0 28 09:12 Intake and Output 12/08/18 12/08/18 12/09/18 1515:00 23:00 07:00 IntakeIntake Total 1260 ml 850 ml OutputOutput Total 1000 ml 1200 ml BalanceBalance 260 ml -350 ml Constitutional: non-verbal, frail Neck: other (Tracheostomy) Respiratory: diminished breath sounds Cardiovascular: regular rate and rhythm Gastrointestinal: soft, non-tender, other (G-tube) Extremities: other (Contracted) Neurological: unresponsive Skin: other (Sacral and right hip wounds) Results Results 24hrs Laboratory Tests Test 12/08/18 13:13 12/08/18 18:06 12/08/18 20:25 12/09/18 00:56 Bedside Glucose 126 148 163 133 Test 12/09/18 05:24 12/09/18 08:41 12/09/18 11:02 12/09/18 12:29 Bedside Glucose 130 138 114 White Blood Count 8.2 # Red Blood Count 3.54 L Hemoglobin 9.2 L Hematocrit 30.0 L Mean Corpuscular Volume 84.7 Mean Corpuscular 26.0 L Hemoglobin Mean Corpuscular 30.7 L Hemoglobin Concent Red Cell Distribution 17.2 H Width Platelet Count 391 # Mean Platelet Volume 10.9 H Immature Granulocytes % 0.500 H Neutrophils % 73.0 Lymphocytes % 13.7 L Monocytes % 8.1 Eosinophils % 3.6 Basophils % 1.1 Nucleated Red Blood 0.0 Cells % Immature Granulocytes # 0.040 H Neutrophils # 6.0 Lymphocytes # 1.1 Monocytes # 0.7 Eosinophils # 0.3 Basophils # 0.1 Nucleated Red Blood 0.0 Cells # Medications Medication Current Medications IV Flush (NS 10 ml) 10 ml Q8 IV Last administered on 12/09/18 05:27; Admin Dose 10 ML; Start 11/26/18 at 22:00 Ascorbic Acid (Vitamin C) 500 mg DAILY GTB Last administered on 12/09/18 08:38; Admin Dose 500 MG; Start 11/27/18 at 09:00 Baclofen (Lioresal) 20 mg TID GTB Last administered on 12/09/18 12:28; Admin Dose 20 MG; Start 11/26/18 at 21:00 Cholecalciferol (Vitamin D) 2,000 unit DAILY GTB Last administered on 12/09/18 08:38; Admin Dose 2,000 UNIT; Start 11/27/18 at 09:00 Cyanocobalamin (Vitamin B12) 1,000 mcg DAILY GTB Last administered on 12/09/18 08:38; Admin Dose 1,000 MCG; Start 11/27/18 at 09:00 Miscellaneous Information 1 ea NOTE XX ; Start 11/26/18 at 18:30 Glucose (Glutose) 15 gm Q15M PRN PO DECREASED GLUCOSE; Start 11/26/18 at 18:30 Glucose (Glutose) 22.5 gm Q15M PRN PO DECREASED GLUCOSE; Start 11/26/18 at 18:30 Dextrose (D50w Syringe) 25 ml Q15M PRN IV DECREASED GLUCOSE; Start 11/26/18 at 18:30 Dextrose (D50w Syringe) 50 ml Q15M PRN IV DECREASED GLUCOSE; Start 11/26/18 at 18:30 Glucagon (Glucagen) 1 mg Q15M PRN IM DECREASED GLUCOSE; Start 11/26/18 at 18:30 Glucose (Glutose) 15 gm Q15M PRN BUCCAL DECREASED GLUCOSE; Start 11/26/18 at 18:30 Diagnostic Test (Pha) (Accu-Chek) 1 ea 02 XX Last administered on 12/07/18 02:00; Admin Dose 1 EA; Start 11/27/18 at 02:00 Insulin Aspart (Novolog Insulin Pen) NOVOLOG *MILD* ALGORI... Q4 SC Last administered on 12/08/18 20:42; Admin Dose 1 UNIT; Start 11/27/18 at 00:00 Collagenase (Santyl) 1 applic PRN PRN TOP .WOUND; Start 11/27/18 at 09:00 Lorazepam (Ativan) 1 mg Q2H PRN IV SEIZURES Last administered on 11/29/18 14:39; Admin Dose 1 MG; Start 11/27/18 at 18:00 Aspirin (Aspirin) 81 mg DAILY GTB Last administered on 12/09/18 08:38; Admin Dose 81 MG; Start 11/29/18 at 10:00 Levetiracetam 100 ml @ 400 mls/hr Q12 IVPB Last administered on 12/09/18 08:37; Admin Dose 400 MLS/HR; Start 11/29/18 at 21:00 Acetaminophen (Tylenol Liquid) 650 mg Q4H PRN GTB MILD PAIN(1-3)OR ELEVATED TEMP Last administered on 12/07/18 20:26; Admin Dose 650 MG; Start 12/03/18 at 02:00 Sodium Hypochlorite (Dakin'S (Dilute )) 1 applic BID IRR Last administered on 12/09/18 12:26; Admin Dose 1 APPLIC; Start 12/03/18 at 11:24 Vancomycin HCl (Vanco Iv Per Pharmacy) VANCOMYCIN PER PHARMACY PER PROTOCOL XX ; Start 12/07/18 at 23:30 Meropenem/Sodium Chloride 50 ml @ 100 mls/hr Q8 IVPB Last administered on 12/09/18 05:27; Admin Dose 100 MLS/HR; Start 12/07/18 at 22:30 Vancomycin/Sodium Chloride 250 ml @ 125 mls/hr Q12H IVPB Last administered on 12/09/18 12:27; Admin Dose 125 MLS/HR; Start 12/08/18 at 13:00 LUIZ BRANNON December 09, 2018 13:17
--- NOTE | 2018-12-09 13:20 | CONS ---
Assessment/Plan Assessment/Plan Hospital Course (Demo Recall) IMPRESSION: 1. Atrial fibrillation/atrial flutter with rapid ventricular response-now in SR 2. Hypotension/shock state, likely septic. 3. History of cardiomyopathy with mildly depressed left ventricular ejection fraction approximately 40% to 45%. 4. History of congestive heart failure, systolic, chronic. 5. Possible pneumonia. 6. Sepsis. 7. Leukocytosis. 8. Anemia requiring transfusions. 9. Hypernatremia. 10. Coagulopathy. 11. Urinary tract infection. 12. Seizures 14. hyperkalemia Recc: -Tele -serial ecg's -Continue abx's and f/u cx data -Continue keppra -Now on asa, follow for any bleeding complications -systemic anticoag held due to anemia requiring transfusions Consultation Date/Type/Reason Admit Date/Time Nov 26, 2018 at 20:42 Initial Consult Date 11/27/18 Type of Consult Cardiology Reason for Consultation AF Requesting Provider: NADEEN CHO Date/Time of Note DATE: 12/09/18 TIME: 13:19 Exam/Review of Systems Vital Signs Vitals Vital Signs Date Temp Pulse Resp B/P (MAP) Pulse Ox O2 O2 Flow FiO2 Time Delivery Rate 12/09/18 94/43 (60) 12:56 12/09/18 72 12:00 12/09/18 97.9 19 100 Trach 11:49 Collar 12/09/18 5.0 28 09:12 Intake and Output 12/08/18 12/08/18 12/09/18 1414:59 22:59 06:59 IntakeIntake Total 1260 ml 850 ml OutputOutput Total 1000 ml 1200 ml BalanceBalance 260 ml -350 ml Exam Exam Review of Systems: CONSTITUTIONAL: No fevers, chills. PULMONARY: No sob CARDIOVASCULAR: No chest pain/palpitations GASTROINTESTINAL: No nausea/vomiting. GENITOURINARY: No hematuria/dysuria. MUSCULOSKELETAL: No myagias/arthalgias. PSYCHIATRIC: The patient denies depression. NEUROLOGIC: No weakness Constitutional: alert Psych: no complaints Head: normocephalic ENMT: mucosa pink and moist Neck: supple, jvd Respiratory: diminished breath sounds Cardiovascular: regular rate and rhythm Gastrointestinal: soft, non-tender Musculoskeletal: muscle tone (normal) Extremities: edema (none) Neurological: other (encephalopathic) Labs Result Diagram: 12/09/18 1102 12/08/18 0632 Results 24hrs Laboratory Tests Test 12/08/18 18:06 12/08/18 20:25 12/09/18 00:56 12/09/18 05:24 Bedside Glucose 148 163 133 130 Test 12/09/18 08:41 12/09/18 11:02 12/09/18 12:15 12/09/18 12:29 Bedside Glucose 138 114 White Blood Count 8.2 # Red Blood Count 3.54 L Hemoglobin 9.2 L Hematocrit 30.0 L Mean Corpuscular Volume 84.7 Mean Corpuscular 26.0 L Hemoglobin Mean Corpuscular 30.7 L Hemoglobin Concent Red Cell Distribution 17.2 H Width Platelet Count 391 # Mean Platelet Volume 10.9 H Immature Granulocytes % 0.500 H Neutrophils % 73.0 Lymphocytes % 13.7 L Monocytes % 8.1 Eosinophils % 3.6 Basophils % 1.1 Nucleated Red Blood 0.0 Cells % Immature Granulocytes # 0.040 H Neutrophils # 6.0 Lymphocytes # 1.1 Monocytes # 0.7 Eosinophils # 0.3 Basophils # 0.1 Nucleated Red Blood 0.0 Cells # Vancomycin Level Trough 14.6 Medications Medications Current Medications IV Flush (NS 10 ml) 10 ml Q8 IV Last administered on 12/09/18 05:27; Admin Dose 10 ML; Start 11/26/18 at 22:00 Ascorbic Acid (Vitamin C) 500 mg DAILY GTB Last administered on 12/09/18 08:38; Admin Dose 500 MG; Start 11/27/18 at 09:00 Baclofen (Lioresal) 20 mg TID GTB Last administered on 12/09/18at 12:28; Admin Dose 20 MG; Start 11/26/18 at 21:00 Cholecalciferol (Vitamin D) 2,000 unit DAILY GTB Last administered on 12/09/18 08:38; Admin Dose 2,000 UNIT; Start 11/27/18 at 09:00 Cyanocobalamin (Vitamin B12) 1,000 mcg DAILY GTB Last administered on 12/09/18 08:38; Admin Dose 1,000 MCG; Start 11/27/18 at 09:00 Miscellaneous Information 1 ea NOTE XX ; Start 11/26/18 at 18:30 Glucose (Glutose) 15 gm Q15M PRN PO DECREASED GLUCOSE; Start 11/26/18 at 18:30 Glucose (Glutose) 22.5 gm Q15M PRN PO DECREASED GLUCOSE; Start 11/26/18 at 18:30 Dextrose (D50w Syringe) 25 ml Q15M PRN IV DECREASED GLUCOSE; Start 11/26/18 at 18:30 Dextrose (D50w Syringe) 50 ml Q15M PRN IV DECREASED GLUCOSE; Start 11/26/18 at 18:30 Glucagon (Glucagen) 1 mg Q15M PRN IM DECREASED GLUCOSE; Start 11/26/18 at 18:30 Glucose (Glutose) 15 gm Q15M PRN BUCCAL DECREASED GLUCOSE; Start 11/26/18 at 18:30 Diagnostic Test (Pha) (Accu-Chek) 1 ea 02 XX Last administered on 12/07/18 02:00; Admin Dose 1 EA; Start 11/27/18 at 02:00 Insulin Aspart (Novolog Insulin Pen) NOVOLOG *MILD* ALGORI... Q4 SC Last administered on 12/08/18 20:42; Admin Dose 1 UNIT; Start 11/27/18 at 00:00 Collagenase (Santyl) 1 applic PRN PRN TOP .WOUND; Start 11/27/18 at 09:00 Lorazepam (Ativan) 1 mg Q2H PRN IV SEIZURES Last administered on 11/29/18 14:39; Admin Dose 1 MG; Start 11/27/18 at 18:00 Aspirin (Aspirin) 81 mg DAILY GTB Last administered on 12/09/18 08:38; Admin Dose 81 MG; Start 11/29/18 at 10:00 Levetiracetam 100 ml @ 400 mls/hr Q12 IVPB Last administered on 12/09/18 08:37; Admin Dose 400 MLS/HR; Start 11/29/18 at 21:00 Acetaminophen (Tylenol Liquid) 650 mg Q4H PRN GTB MILD PAIN(1-3)OR ELEVATED TEMP Last administered on 12/07/18 20:26; Admin Dose 650 MG; Start 12/03/18 at 02:00 Sodium Hypochlorite (Dakin'S (Dilute )) 1 applic BID IRR Last administered on 12/09/18 12:26; Admin Dose 1 APPLIC; Start 12/03/18 at 11:24 Vancomycin HCl (Vanco Iv Per Pharmacy) VANCOMYCIN PER PHARMACY PER PROTOCOL XX ; Start 12/07/18 at 23:30 Meropenem/Sodium Chloride 50 ml @ 100 mls/hr Q8 IVPB Last administered on 12/09/18at 05:27; Admin Dose 100 MLS/HR; Start 12/07/18 at 22:30 Vancomycin/Sodium Chloride 250 ml @ 125 mls/hr Q12H IVPB Last administered on 12/09/18at 12:27; Admin Dose 125 MLS/HR; Start 12/08/18 at 13:00 MAITE VAZQUEZ December 09, 2018 13:20
--- NOTE | 2018-12-09 15:18 | CONS ---
Assessment/Plan Assessment/Plan Hospital Course 73 yo F with PSP and multiple other comorbidities who is admitted to the [facility] ICU for management of presumed septic shock. On 11/27, she was noted to have new onset seizures... for which neurology is consulted. On 11/29, she was noted to have a recurrence of the same.. The clinical picture could be consistent with epilepsy... Meningoencephalitis is less likely.. MRI brain is reassuringly negative for acute intracranial pathology...though notable for volume loss/ventriculomegaly. EEG was without epileptiform activity.. P: Cont Keppra maintenance 1g BID for now Ativan IV PRN prolonged seizure >5 min or for cluster Supportive care and other medical management per primary Will follow Consultation Date/Type/Reason Admit Date/Time Nov 26, 2018 at 20:42 Type of Consult Neurology Requesting Provider: NADEEN CHO Date/Time of Note DATE: 12/09/18 TIME: 15:18 24 HR Interval Summary Free Text/Dictation Continues acute care. Exam Vital Signs Vitals Vital Signs Date Temp Pulse Resp B/P (MAP) Pulse Ox O2 O2 Flow FiO2 Time Delivery Rate 12/09/18 96 5.0 28 14:44 12/09/18 94/43 (60) 12:56 12/09/18 72 12:00 12/09/18 97.9 19 Trach 11:49 Collar Intake and Output 12/08/18 12/08/18 12/09/18 1515:00 23:00 07:00 IntakeIntake Total 1260 ml 850 ml OutputOutput Total 1000 ml 1200 ml BalanceBalance 260 ml -350 ml Exam PE: Gen Appearance: No Apparent Distress HEENT: Trach; on t-bar Cardiovascular: Regular rate Abdomen: Soft; PEG Extremities: Dry; BL wrists contracted NE: The patient was obtunded and nonverbal. Opens eyes to noxious stimuli. Does not track or follow any commands. Cranial nerve examination was limited by mental status. Pupils were equal and reactive to light. There was no afferent pupillary defect. Funduscopic examination was limited. Face was grossly symmetric, w/ present corneal and cough reflexes. Tone was spastic in the UE. Muscle bulk was diminished. I did not see fasciculations. The patient withdrew to noxious stimulation x 4. Coordination and gait testing was limited by mental status. Arm and leg reflexes were within normal limits and symmetric. Garza's sign was absent. Plantar responses were flexor. TINO PRINCE NP December 09, 2018 15:18
[2018-12-09] MEDS ORDERED: CEFEPIME 1GM/50 ML (PMX) 50 ML IVPB SCH (21:00)
[2018-12-10] VITALS (10 sets, daily range): BP systolic 91–122; BP diastolic 44–61; PULSE 62–90; RESP 17–19
[2018-12-10] MEDS: VANCOMYCIN 750 MG (PMX) 250 ML IVPB SCH ×2 (00:44→12:46)
[2018-12-10] MEDS: ACCU-CHEK XX SCH (02:00)
[2018-12-10] MEDS: ALTEPLASE (CATHFLO) 2 MG INJ CATHETER PRN ×3 (03:41→16:17)
[2018-12-10] MEDS: MEROPENEM 1 GM/50ML(PMX) 50 ML IVPB SCH ×3 (06:17→22:11)
[2018-12-10] MEDS: INSULIN ASPART [NOVOLOG] 3 ML PEN SC SCH ×4 (06:34→18:16)
[2018-12-10] MEDS: ASPIRIN 81 MG TAB GTB SCH (08:35)
[2018-12-10] MEDS: ASCORBIC ACID 500 MG TAB GTB SCH (08:35)
[2018-12-10] MEDS: BALSAM PERU/CASTOR OIL 60 GM TUBE TOP SCH (08:35)
[2018-12-10] MEDS: CYANOCOBALAMIN 500 MCG TAB GTB SCH (08:36)
[2018-12-10] MEDS: CHOLECALCIFEROL 2,000 UNIT CAP GTB SCH (08:36)
[2018-12-10] MEDS: BACLOFEN 10 MG TAB GTB SCH ×3 (08:36→22:10)
[2018-12-10] MEDS: LEVETIRACETAM 1000 MG (PMX) 100 ML IVPB SCH ×2 (08:36→22:10)
[2018-12-10] MEDS: SODIUM HYPOCHLORITE (1/40) 1 LITER BTL IRR SCH ×2 (08:36→22:11)
--- NOTE | 2018-12-10 09:26 | CONS ---
Consult Date/Type/Reason Admit Date/Time Nov 26, 2018 at 20:42 Initial Consult Date 11/27/18 Type of Consultation: Pulm Requesting Provider: NADEEN CHO Date/Time of Note DATE: 12/10/18 TIME: 09:24 Subjective NO acute events - pt in sinus now - stable fluids status. ROS: No fever, no chills, no nausea, no vomiting, no diarrhea/constipation - per nurse, pt contracted Objective Vitals Vital Signs Date Temp Pulse Resp B/P (MAP) Pulse Ox O2 O2 Flow FiO2 Time Delivery Rate 12/10/18 5.0 08:09 12/10/18 98.1 76 18 111/48 98 Trach 07:43 (69) Collar 12/10/18 28 04:02 Intake and Output 12/09/18 12/09/18 12/10/18 1515:00 23:00 07:00 IntakeIntake Total 400 ml 880 ml 850 ml OutputOutput Total 1150 ml 1200 ml BalanceBalance 400 ml -270 ml -350 ml Exam General: WN/WD/NAD, AOx 0 HEENT: Unicetric/atraumatic/EOMI (does not follow commands) NECK: trach Lymph: no lymphadenopathy HEART: regular with no S3, II/ systolic murmur at apex LUNGS: Coarse sounds ABD: soft, NT, ND, +BS : Intact Neuro: contracted SKIN: chronic changes EXT: trace edema Results/Medications Result Diagram: 12/10/18 0657 12/08/18 0632 Results 24 hrs Laboratory Tests Test 12/09/18 11:02 12/09/18 12:15 12/09/18 12:29 12/09/18 17:28 White Blood Count 8.2 # Red Blood Count 3.54 L Hemoglobin 9.2 L Hematocrit 30.0 L Mean Corpuscular Volume 84.7 Mean Corpuscular 26.0 L Hemoglobin Mean Corpuscular 30.7 L Hemoglobin Concent Red Cell Distribution 17.2 H Width Platelet Count 391 # Mean Platelet Volume 10.9 H Immature Granulocytes % 0.500 H Neutrophils % 73.0 Lymphocytes % 13.7 L Monocytes % 8.1 Eosinophils % 3.6 Basophils % 1.1 Nucleated Red Blood 0.0 Cells % Immature Granulocytes # 0.040 H Neutrophils # 6.0 Lymphocytes # 1.1 Monocytes # 0.7 Eosinophils # 0.3 Basophils # 0.1 Nucleated Red Blood 0.0 Cells # Vancomycin Level Trough 14.6 Bedside Glucose 114 132 Test 12/10/18 00:42 12/10/18 06:18 12/10/18 06:57 Bedside Glucose 125 175 White Blood Count 7.5 Red Blood Count 3.35 L Hemoglobin 8.5 L Hematocrit 28.6 L Mean Corpuscular Volume 85.4 Mean Corpuscular 25.4 L Hemoglobin Mean Corpuscular 29.7 L Hemoglobin Concent Red Cell Distribution 17.2 H Width Platelet Count 395 Mean Platelet Volume 11.0 H Immature Granulocytes % 0.400 Neutrophils % 69.8 Lymphocytes % 18.3 Monocytes % 7.2 Eosinophils % 3.1 Basophils % 1.2 Nucleated Red Blood 0.0 Cells % Immature Granulocytes # 0.030 Neutrophils # 5.2 Lymphocytes # 1.4 Monocytes # 0.5 Eosinophils # 0.2 Basophils # 0.1 Nucleated Red Blood 0.0 Cells # Home Meds Reported Medications Ondansetron Hcl* (Ondansetron Hcl*) 4 Mg Tablet, 4 MG PO Q6H PRN for n/v, TAB 11/26/18 Ascorbic Acid* (Vitamin C*) 500 Mg Capsule.sa, 500 MG GTB DAILY, CAP 11/26/18 Acetaminophen* (Acetaminophen*) 325 Mg Tablet, 650 MG GTB Q4H PRN for PAIN AND OR ELEVATED TEMP, #30 TAB 11/26/18 Sertraline Hcl* (Sertraline Hcl*) 50 Mg Tablet, 50 MG GTB DAILY, #30 TAB 11/26/18 Protein Supplement (Promod) 946 Ml Liquid, 30 ML GTB for supplement 11/26/18 Lansoprazole* (Lansoprazole*) 30 Mg Capsule.dr, 30 MG GTB BID, CAP 11/26/18 Hydrocodone/Acetaminophen ([place] 5-325 Tablet) 1 Each Tablet, 1 EACH GTB Q4H PRN for PAIN, TAB 11/26/18 Polyethylene Glycol* (Miralax*) 17 Gm Powd.pack, 17 GM GTB BID, #60 PACKET 11/26/18 Metoprolol Tartrate* (Lopressor*) 25 Mg Tab, 25 MG GTB BID, #60 TAB 11/26/18 Lisinopril* (Lisinopril*) 5 Mg Tablet, 5 MG GTB DAILY, #30 TAB 11/26/18 Insulin Aspart* (Novolog Insulin Pen*) 100 Unit/Ml Soln, 0 SC .SLIDING SCALE AC, EA INJECT PER SLIDING SCALE; IF 70-150=0unit; 151-200= 2units; 201-250=4units; 251-300=6units; 301-350=8units; 351-400=10units and Call MD, Subcutaneously before meals and at bedtime fo DM. 11/26/18 Insulin Glargine* (Lantus*) 100 Unit/Ml Soln, 5 UNIT SC QHS, #1 VIAL [id number] SQ AT BEDTIME FOR TYPE 2DIABETES MELLITUS WITHOUT COMPLICATIONS 11/26/18 Levetiracetam* (Keppra*) 500 Mg/5 Ml Solution, 100 MG GTB BID for SEIZURE for 30 Days, BOTTLE 11/26/18 Ipratropium-Albuterol (Ipratropium-Albuterol) 0.5-3 Mg/3 Ml Ampul.neb, 3 ML INHALATION Q6, #30 VIAL 11/26/18 Ferrous Sulfate* (Ferrous Sulfate*) 220 Mg/5 Ml Solution, 330 MG PO BID, ML 11/26/18 Epoetin Haroon (Epogen) 10,000 Units/Ml Soln, 66352 UNITS SC QWED for ANEMIA, VIAL 11/26/18 Cyanocobalamin* (Vitamin B-12*) 1,000 Mcg Tablet.sa, 1000 MCG GTB DAILY, TAB 11/26/18 Clonazepam* (Clonazepam*) 0.5 Mg Tablet, 0.5 MG GTB BID, TAB 11/26/18 Cholecalciferol (Vitamin D3) (VITAMIN D-3) 2,000 Unit Capsule, 2000 UNIT GTB DAILY, CAP 11/26/18 Baclofen* (Baclofen*) 10 Mg Tablet, 20 MG GTB TID for MUSCLE SPASM, TAB 11/26/18 Aspirin* (Aspirin* EC) 81 Mg Tablet.dr, 81 MG GTB DAILY, TAB 11/26/18 Amiodarone Hcl* (Amiodarone Hcl*) 200 Mg Tablet, 200 MG GTB BID for ARRHYTMIA, #60 TAB 11/26/18 Zolpidem Tartrate* (Zolpidem Tartrate*) 5 Mg Tablet, 5 MG GTB QHS PRN for INSOMNIA, #30 TAB 11/26/18 Acidophilus-Bulgaricus* (BD Lactinex*) 1 Pkt Packet, 1 PKT GTB BID, PACKET 11/26/18 Zinc Sulfate* (Zinc Sulfate*) 220 Mg Tablet, 220 MG GTB DAILY for 30 Days, #30 TAKE 1 CAPSULE VIA G-TUBE EVERY DAY 11/26/18 Estrogens Conjugated* (Premarin*) 0.45 Mg Tablet, 1.5 MG PO DAILY 02/18/13 Medications Current Medications IV Flush (NS 10 ml) 10 ml Q8 IV Last administered on 12/10/18at 06:34; Admin Dose 10 ML; Start 11/26/18 at 22:00 Ascorbic Acid (Vitamin C) 500 mg DAILY GTB Last administered on 12/10/18at 08:35; Admin Dose 500 MG; Start 11/27/18 at 09:00 Baclofen (Lioresal) 20 mg TID GTB Last administered on 12/10/18at 08:36; Admin Dose 20 MG; Start 11/26/18 at 21:00 Cholecalciferol (Vitamin D) 2,000 unit DAILY GTB Last administered on 12/10/18at 08:36; Admin Dose 2,000 UNIT; Start 11/27/18 at 09:00 Cyanocobalamin (Vitamin B12) 1,000 mcg DAILY GTB Last administered on 12/10/18at 08:36; Admin Dose 1,000 MCG; Start 11/27/18 at 09:00 Miscellaneous Information 1 ea NOTE XX ; Start 11/26/18 at 18:30 Glucose (Glutose) 15 gm Q15M PRN PO DECREASED GLUCOSE; Start 11/26/18 at 18:30 Glucose (Glutose) 22.5 gm Q15M PRN PO DECREASED GLUCOSE; Start 11/26/18 at 18:30 Dextrose (D50w Syringe) 25 ml Q15M PRN IV DECREASED GLUCOSE; Start 11/26/18 at 18:30 Dextrose (D50w Syringe) 50 ml Q15M PRN IV DECREASED GLUCOSE; Start 11/26/18 at 18:30 Glucagon (Glucagen) 1 mg Q15M PRN IM DECREASED GLUCOSE; Start 11/26/18 at 18:30 Glucose (Glutose) 15 gm Q15M PRN BUCCAL DECREASED GLUCOSE; Start 11/26/18 at 18:30 Diagnostic Test (Pha) (Accu-Chek) 1 ea 02 XX Last administered on 12/07/18 02:00; Admin Dose 1 EA; Start 11/27/18 at 02:00 Collagenase (Santyl) 1 applic PRN PRN TOP .WOUND; Start 11/27/18 at 09:00 Lorazepam (Ativan) 1 mg Q2H PRN IV SEIZURES Last administered on 11/29/18 14:39; Admin Dose 1 MG; Start 11/27/18 at 18:00 Aspirin (Aspirin) 81 mg DAILY GTB Last administered on 12/10/18 08:35; Admin Dose 81 MG; Start 11/29/18 at 10:00 Levetiracetam 100 ml @ 400 mls/hr Q12 IVPB Last administered on 12/10/18 08:36; Admin Dose 400 MLS/HR; Start 11/29/18 at 21:00 Acetaminophen (Tylenol Liquid) 650 mg Q4H PRN GTB MILD PAIN(1-3)OR ELEVATED TEMP Last administered on 12/07/18 20:26; Admin Dose 650 MG; Start 12/03/18 at 02:00 Sodium Hypochlorite (Dakin'S (Dilute )) 1 applic BID IRR Last administered on 12/10/18 08:36; Admin Dose 1 APPLIC; Start 12/03/18 at 11:24 Vancomycin HCl (Vanco Iv Per Pharmacy) VANCOMYCIN PER PHARMACY PER PROTOCOL XX ; Start 12/07/18 at 23:30 Meropenem/Sodium Chloride 50 ml @ 100 mls/hr Q8 IVPB Last administered on 12/10/18 06:17; Admin Dose 100 MLS/HR; Start 12/07/18 at 22:30 Vancomycin/Sodium Chloride 250 ml @ 125 mls/hr Q12H IVPB Last administered on 12/10/18 00:44; Admin Dose 125 MLS/HR; Start 12/08/18 at 13:00 Insulin Aspart (Novolog Insulin Pen) NOVOLOG *MILD* ALGORI... Q6 SC Last administered on 12/10/18 06:34; Admin Dose 1 UNIT; Start 12/09/18 at 18:00 Alteplase, Recombinant (Cathflo (Activase)) 2 mg MAY REPEAT X1 PRN CATHETER IF CATHETER REMAINS OCCULUDED Last administered on 12/10/18at 04:35; Admin Dose 2 MG; Start 12/09/18 at 23:30 Assessment/Plan Hospital Course (Demo Recall) 1. Atrial fibrillation/atrial flutter with rapid ventricular response - now in SR - treated - will follow. Remains in sinus now. 2. Hypotension/shock state, likely septic - better now. .BP well controlled now. 3. History of cardiomyopathy with mildly depressed left ventricular ejection fraction approximately 40% to 45%. Keep euvolemic. Chronic. 4. History of congestive heart failure, systolic, chronic. 5. Possible pneumonia - on meds, con't anti-bx. 6. Sepsis- treated, better now -no fevers. 7. Leukocytosis. 8. Anemia requiring transfusions- no active bleed now. 9. Hypernatremia. 10. Coagulopathy. 11. Urinary tract infection. ZAHIRA RAJAN MD December 10, 2018 09:26
--- NOTE | 2018-12-10 11:38 | CONS ---
Assessment/Plan Assessment/Plan Hospital Course 73 yo F with PSP and multiple other comorbidities who is admitted to the [facility] ICU for management of presumed septic shock. On 11/27, she was noted to have new onset seizures... for which neurology is consulted. On 11/29, she was noted to have a recurrence of the same.. The clinical picture could be consistent with epilepsy... Meningoencephalitis is less likely.. MRI brain is reassuringly negative for acute intracranial pathology...though notable for volume loss/ventriculomegaly. EEG was without epileptiform activity.. P: Cont Keppra maintenance 1g BID for now Ativan IV PRN prolonged seizure >5 min or for cluster Supportive care and other medical management per primary Will follow Consultation Date/Type/Reason Admit Date/Time Nov 26, 2018 at 20:42 Type of Consult Neurology Requesting Provider: NADEEN CHO Date/Time of Note DATE: 12/10/18 TIME: 11:38 24 HR Interval Summary Free Text/Dictation Continues acute care. Exam Vital Signs Vitals Vital Signs Date Temp Pulse Resp B/P (MAP) Pulse Ox O2 O2 Flow FiO2 Time Delivery Rate 12/10/18 98.0 71 18 103/50 92 Trach 11:10 (67) Collar 12/10/18 5.0 08:09 12/10/18 28 04:02 Intake and Output 12/09/18 12/09/18 12/10/18 1414:59 22:59 06:59 IntakeIntake Total 400 ml 880 ml 850 ml OutputOutput Total 1150 ml 1200 ml BalanceBalance 400 ml -270 ml -350 ml Exam PE: Gen Appearance: No Apparent Distress HEENT: Trach; on t-bar Cardiovascular: Regular rate Abdomen: Soft; PEG Extremities: Dry; BL wrists contracted NE: The patient was obtunded and nonverbal. The pt blinks spontaneously. Does not track or follow any commands. Cranial nerve examination was limited by mental status. Pupils were equal and reactive to light. There was no afferent pupillary defect. Funduscopic examination was limited. Face was grossly symmetric, w/ present corneal and cough reflexes. Tone was spastic in the UE. Muscle bulk was diminished. I did not see fasciculations. The patient withdrew to noxious stimulation x 4. Coordination and gait testing was limited by mental status. Arm and leg reflexes were within normal limits and symmetric. Garza's sign was absent. Plantar responses were flexor. TINO PRINCE NP December 10, 2018 11:38
--- NOTE | 2018-12-10 14:18 | CONS ---
Assessment/Plan Assessment/Plan Assessment/Plan (Daily) She is a phone call from nursing they have scheduled follow-up appointment family conference with family to address level of care and CODE STATUS on 12 December at 11 AM follow-up palliative care note will be done. Consultation Date/Type/Reason Admit Date/Time Nov 26, 2018 at 20:42 Initial Consult Date 11/27/18 Requesting Provider: NADEEN CHO Date/Time of Note DATE: 12/10/18 TIME: 14:17 Exam/Review of Systems Exam Vitals Vital Signs Date Temp Pulse Resp B/P (MAP) Pulse Ox O2 O2 Flow FiO2 Time Delivery Rate 12/10/18 98.0 71 18 103/50 92 Trach 11:10 (67) Collar 12/10/18 5.0 08:09 12/10/18 28 04:02 Intake and Output 12/09/18 12/09/18 12/10/18 1414:59 22:59 06:59 IntakeIntake Total 400 ml 880 ml 850 ml OutputOutput Total 1150 ml 1200 ml BalanceBalance 400 ml -270 ml -350 ml Results Result Diagram: 12/10/18 0657 12/08/18 0632 Results 24hrs Laboratory Tests Test 12/09/18 17:28 12/10/18 00:42 12/10/18 06:18 12/10/18 06:57 Bedside Glucose 132 125 175 White Blood Count 7.5 Red Blood Count 3.35 L Hemoglobin 8.5 L Hematocrit 28.6 L Mean Corpuscular Volume 85.4 Mean Corpuscular 25.4 L Hemoglobin Mean Corpuscular 29.7 L Hemoglobin Concent Red Cell Distribution 17.2 H Width Platelet Count 395 Mean Platelet Volume 11.0 H Immature Granulocytes % 0.400 Neutrophils % 69.8 Lymphocytes % 18.3 Monocytes % 7.2 Eosinophils % 3.1 Basophils % 1.2 Nucleated Red Blood 0.0 Cells % Immature Granulocytes # 0.030 Neutrophils # 5.2 Lymphocytes # 1.4 Monocytes # 0.5 Eosinophils # 0.2 Basophils # 0.1 Nucleated Red Blood 0.0 Cells # Test 12/10/18 11:21 Bedside Glucose 146 Medications Medication Current Medications IV Flush (NS 10 ml) 10 ml Q8 IV Last administered on 12/10/18at 13:00; Admin Dose 10 ML; Start 11/26/18 at 22:00 Ascorbic Acid (Vitamin C) 500 mg DAILY GTB Last administered on 12/10/18 08:35; Admin Dose 500 MG; Start 11/27/18 at 09:00 Baclofen (Lioresal) 20 mg TID GTB Last administered on 12/10/18 12:46; Admin Dose 20 MG; Start 11/26/18 at 21:00 Cholecalciferol (Vitamin D) 2,000 unit DAILY GTB Last administered on 12/10/18 08:36; Admin Dose 2,000 UNIT; Start 11/27/18 at 09:00 Cyanocobalamin (Vitamin B12) 1,000 mcg DAILY GTB Last administered on 12/10/18 08:36; Admin Dose 1,000 MCG; Start 11/27/18 at 09:00 Miscellaneous Information 1 ea NOTE XX ; Start 11/26/18 at 18:30 Glucose (Glutose) 15 gm Q15M PRN PO DECREASED GLUCOSE; Start 11/26/18 at 18:30 Glucose (Glutose) 22.5 gm Q15M PRN PO DECREASED GLUCOSE; Start 11/26/18 at 18:30 Dextrose (D50w Syringe) 25 ml Q15M PRN IV DECREASED GLUCOSE; Start 11/26/18 at 18:30 Dextrose (D50w Syringe) 50 ml Q15M PRN IV DECREASED GLUCOSE; Start 11/26/18 at 18:30 Glucagon (Glucagen) 1 mg Q15M PRN IM DECREASED GLUCOSE; Start 11/26/18 at 18:30 Glucose (Glutose) 15 gm Q15M PRN BUCCAL DECREASED GLUCOSE; Start 11/26/18 at 18:30 Diagnostic Test (Pha) (Accu-Chek) 1 ea 02 XX Last administered on 12/07/18at 02:00; Admin Dose 1 EA; Start 11/27/18 at 02:00 Collagenase (Santyl) 1 applic PRN PRN TOP .WOUND; Start 11/27/18 at 09:00 Lorazepam (Ativan) 1 mg Q2H PRN IV SEIZURES Last administered on 11/29/18at 14:39; Admin Dose 1 MG; Start 11/27/18 at 18:00 Aspirin (Aspirin) 81 mg DAILY GTB Last administered on 12/10/18 08:35; Admin Dose 81 MG; Start 11/29/18 at 10:00 Levetiracetam 100 ml @ 400 mls/hr Q12 IVPB Last administered on 12/10/18 08:36; Admin Dose 400 MLS/HR; Start 11/29/18 at 21:00 Acetaminophen (Tylenol Liquid) 650 mg Q4H PRN GTB MILD PAIN(1-3)OR ELEVATED TEMP Last administered on 12/07/18 20:26; Admin Dose 650 MG; Start 12/03/18 at 02:00 Sodium Hypochlorite (Dakin'S (Dilute )) 1 applic BID IRR Last administered on 12/10/18 08:36; Admin Dose 1 APPLIC; Start 12/03/18 at 11:24 Vancomycin HCl (Vanco Iv Per Pharmacy) VANCOMYCIN PER PHARMACY PER PROTOCOL XX ; Start 12/07/18 at 23:30 Meropenem/Sodium Chloride 50 ml @ 100 mls/hr Q8 IVPB Last administered on 12/10/18 13:00; Admin Dose 100 MLS/HR; Start 12/07/18 at 22:30 Vancomycin/Sodium Chloride 250 ml @ 125 mls/hr Q12H IVPB Last administered on 12/10/18 12:46; Admin Dose 125 MLS/HR; Start 12/08/18 at 13:00 Insulin Aspart (Novolog Insulin Pen) NOVOLOG *MILD* ALGORI... Q6 SC Last administered on 12/10/18 11:33; Admin Dose 1 UNIT; Start 12/09/18 at 18:00 Alteplase, Recombinant (Cathflo (Activase)) 2 mg MAY REPEAT X1 PRN CATHETER IF CATHETER REMAINS OCCULUDED Last administered on 12/10/18 04:35; Admin Dose 2 MG; Start 12/09/18 at 23:30 GRACE SMITH December 10, 2018 14:18
--- NOTE | 2018-12-10 15:19 | CONS ---
Assessment/Plan Assessment/Plan Hospital Course (Demo Recall) # sepsis, endovascular infection, respiratory - sepsis on 12/07/2018 due to bacteremia and likely wound infection. Procalcitonin was 1.96 on 12/07/2018, and so we suspect this is caused by bacterial infection; - low grade fever and leukocytosis have resolved - Bacteremia - blood cultures 12/07/18 are growing GNR - s/p septic shock due to probable UTI - s/p coag negative Staph in blood cultures on 11/26/2018, probable contaminant - colonization of the airway by pseudomonas and corynebacteria on 11/26/2018; MDR pseudomonas in trach aspirate cx from 12/08/2018 likely a colonizer - h/o sepsis due to bacteremia and pneumonia - h/o bacteremia: blood cultures grew enterococcus faecalis on 09/17/2018 sec ondary to R hip wound infection as its wound culture on 09/16/2018 grew E. faecalis as well - h/o recurrent acute on chronic hypoxemic respiratory failure secondary to secretion retention, mucous plugging, major left lung atelectasis, severe shunting - h/o probable aspiration pneumonia. - h/o pneumonia due to pseudomonas on 09/30/2018. s/p Levaquin (10/03/18- 10/07/2018), Meropenem (restart 09/30/2018-10/03/18, 10/12/18 - 10/19/2018) and empiric Amikacin (09/30/18-10/03/18) - H/o intubation on 09/30/2018 - H/o tracheostomy on 10/04/2018 - h/o pseudomonas in urine culture on 09/17/2018 with mild pyuria; treated with Cefepime (09/20/2018-09/25/2018) # infection of wound, OM of R hip, pressure ulcer - colonization of the wound of R hip by pseudomonas (wound culture on 10/31/2018), acinetobacter (wound culture on 11/27/2018) - h/o repeat debridement at [facility] on 11/03/[address]. [address] Pierson, her plastic surgeon at [facility], the wound appeared clean during the I&D (my conversation with him on 11/06/2018) - H/o stage sacral decubitus ulcer extending to bilateral buttocks. She reportedly had total hip dislocation and exposed femoral head. CT pelvis showed e/o OM. Pt complete IV vancomycin (09/17/2018-10/29/2018) for sacral OM associated with E. faecalis - H/o sharp excisional debridement down to and including bone of the sacrum on 08/22/2018 and 09/19/2018 - H/o excision of R hip ulcer, girdlestone resection arthroplasty and flap reconstruction 09/23/2018. The surgical pathology showed osteomyelitis of R hip bone, soft tissue cellulitis, and bony margin of excision was free of the disease - according to Dr. Pierson who performed the wound debridement, Pt needs wound care until granulation tissue builds and infection is cleared. Then he would decide if Pt should get repeat closure or not - XR of R hip on 11/09/2009 showed the remaining R femoral shaft in transverse orientation and with lateral deviation - h/o removal of devitalized/necrotic tissue by Dr. Pierson on 10/07/2018 # renal/ - funguria, recurrent; Pt completed 3 day course of fluconazole (12/04-12/06/2018). Ramires was changed on 12/04/2018. - hematuria on 11/26/2018 - h/o moderate L hydronephrosis per renal US # heme, neuro - h/o acute on chronic anemia requiring PRBC - chronic metabolic encephalopathy - supranuclear palsy # endo, cardiac - diabetes mellitus - A fib with RVR - chronic diastolic HF (EF 40-45% with grade 1 DD per 2D Echo 10/24/2018) - h/o hypertension # allergy - penicillin allergy (throat swelling) but Pt tolerates cefepime, ceftazidime, meropenem Recommendations: - Pending results: blood cultures x2 (GNR) from 12/07, blood culture from 12/09 (NGTD), final wound culture from R hip and wound culture from sacrum (prelim MRSA, Corynebacter Jeikeium (grp JK), GNR, GNR #2, GPC/enterococcus) - Continue vancomycin and meropenem (restart 12/07/2018-) for now as pt is clinically improving and leukocytosis and low grade fever has resolved - Pt completed 3 day course of fluconazole (12/04-12/06/2018). Ramires was changed on 12/04/2018. Management was d/w RN Ezekiel and with Dr. Breaux. Consultation Date/Type/Reason Admit Date/Time Nov 26, 2018 at 20:42 Initial Consult Date 11/27/18 Type of Consult Infectious Disease Requesting Provider: NADEEN CHO Date/Time of Note DATE: 12/10/18 TIME: 15:19 24 HR Interval Summary Free Text/Dictation Remains afebrile with normal WBC. Resp cx grew MDR pseudomonas. Awaiting speciation of gram negative bacteria in blood culture. Subjective hx not possible: pt non-verbal Exam/Review of Systems Exam Vitals Vital Signs Date Temp Pulse Resp B/P (MAP) Pulse Ox O2 O2 Flow FiO2 Time Delivery Rate 12/10/18 70 12:00 12/10/18 98.0 18 103/50 92 Trach 11:10 (67) Collar 12/10/18 5.0 08:09 12/10/18 28 04:02 Intake and Output 12/09/18 12/09/18 12/10/18 1515:00 23:00 07:00 IntakeIntake Total 400 ml 880 ml 850 ml OutputOutput Total 1150 ml 1200 ml BalanceBalance 400 ml -270 ml -350 ml Exam Constitutional: well developed, non-verbal, frail, other (chronically debilitated) Psych: other (unable to assess) Head: normocephalic, atraumatic Eyes: nl conjunctiva, nl lids, nl sclera ENMT: nl external ears & nose, nl nasal mucosa & septum, mucosa pink and moist (no thrush) Neck: other (trach with T-piece) Respiratory: normal air movement, diminished breath sounds, other (On T-piece via trach) Cardiovascular: regular rate and rhythm, nl pulses Gastrointestinal: soft, non-tender, other (+G-tube c/d/i) Genitourinary - Female: other (+Ramires) Musculoskeletal: other (large wound on R hip with dressing intact) Extremities: normal pulses, other (contractures to all 4 extremities); No edema Neurological: unresponsive (obtunded) Skin: nl turgor, other (wounds - reviewed nursing notes and photos in chart); No rash or lesions Results Result Diagram: 12/10/18 0657 12/08/18 0632 Results 24hrs Laboratory Tests Test 12/09/18 17:28 12/10/18 00:42 12/10/18 06:18 12/10/18 06:57 Bedside Glucose 132 125 175 White Blood Count 7.5 Red Blood Count 3.35 L Hemoglobin 8.5 L Hematocrit 28.6 L Mean Corpuscular Volume 85.4 Mean Corpuscular 25.4 L Hemoglobin Mean Corpuscular 29.7 L Hemoglobin Concent Red Cell Distribution 17.2 H Width Platelet Count 395 Mean Platelet Volume 11.0 H Immature Granulocytes % 0.400 Neutrophils % 69.8 Lymphocytes % 18.3 Monocytes % 7.2 Eosinophils % 3.1 Basophils % 1.2 Nucleated Red Blood 0.0 Cells % Immature Granulocytes # 0.030 Neutrophils # 5.2 Lymphocytes # 1.4 Monocytes # 0.5 Eosinophils # 0.2 Basophils # 0.1 Nucleated Red Blood 0.0 Cells # Test 12/10/18 11:21 Bedside Glucose 146 Imaging Imaging CXR 12/07/2018: FINDINGS: Tracheostomy tube is midline. The tip of the left PICC line points to the right , likely abutting the wall of the upper SVC. Postsurgical changes in the right apex. Tubing artifact limits evaluation. The cardiomediastinal silhouette is normal. The aorta is calcified and tortuous. Interval decrease edema, bilateral interstitial densities, and left basilar pleural parenchymal opacity. There is residual asymmetric left perihilar reticul ar densities. No pneumothorax is identified. The osseous structures are intact. IMPRESSION: Interval decrease interstitial edema and small bilateral pleural effusions. Tracheostomy tube in place. Left PICC line as described above. Medications Medication Current Medications IV Flush (NS 10 ml) 10 ml Q8 IV Last administered on 12/10/18at 13:00; Admin Dose 10 ML; Start 11/26/18 at 22:00 Ascorbic Acid (Vitamin C) 500 mg DAILY GTB Last administered on 12/10/18 08:35; Admin Dose 500 MG; Start 11/27/18 at 09:00 Baclofen (Lioresal) 20 mg TID GTB Last administered on 12/10/18 12:46; Admin Dose 20 MG; Start 11/26/18 at 21:00 Cholecalciferol (Vitamin D) 2,000 unit DAILY GTB Last administered on 12/10/18 08:36; Admin Dose 2,000 UNIT; Start 11/27/18 at 09:00 Cyanocobalamin (Vitamin B12) 1,000 mcg DAILY GTB Last administered on 12/10/18 08:36; Admin Dose 1,000 MCG; Start 11/27/18 at 09:00 Miscellaneous Information 1 ea NOTE XX ; Start 11/26/18 at 18:30 Glucose (Glutose) 15 gm Q15M PRN PO DECREASED GLUCOSE; Start 11/26/18 at 18:30 Glucose (Glutose) 22.5 gm Q15M PRN PO DECREASED GLUCOSE; Start 11/26/18 at 18:30 Dextrose (D50w Syringe) 25 ml Q15M PRN IV DECREASED GLUCOSE; Start 11/26/18 at 18:30 Dextrose (D50w Syringe) 50 ml Q15M PRN IV DECREASED GLUCOSE; Start 11/26/18 at 18:30 Glucagon (Glucagen) 1 mg Q15M PRN IM DECREASED GLUCOSE; Start 11/26/18 at 18:30 Glucose (Glutose) 15 gm Q15M PRN BUCCAL DECREASED GLUCOSE; Start 11/26/18 at 18:30 Diagnostic Test (Pha) (Accu-Chek) 1 ea 02 XX Last administered on 12/07/18 02:00; Admin Dose 1 EA; Start 11/27/18 at 02:00 Collagenase (Santyl) 1 applic PRN PRN TOP .WOUND; Start 11/27/18 at 09:00 Lorazepam (Ativan) 1 mg Q2H PRN IV SEIZURES Last administered on 11/29/18 14:39; Admin Dose 1 MG; Start 11/27/18 at 18:00 Aspirin (Aspirin) 81 mg DAILY GTB Last administered on 12/10/18 08:35; Admin Dose 81 MG; Start 11/29/18 at 10:00 Levetiracetam 100 ml @ 400 mls/hr Q12 IVPB Last administered on 12/10/18 08:36; Admin Dose 400 MLS/HR; Start 11/29/18 at 21:00 Acetaminophen (Tylenol Liquid) 650 mg Q4H PRN GTB MILD PAIN(1-3)OR ELEVATED TEMP Last administered on 12/07/18 20:26; Admin Dose 650 MG; Start 12/03/18 at 02:00 Sodium Hypochlorite (Dakin'S (Dilute )) 1 applic BID IRR Last administered on 12/10/18 08:36; Admin Dose 1 APPLIC; Start 12/03/18 at 11:24 Vancomycin HCl (Vanco Iv Per Pharmacy) VANCOMYCIN PER PHARMACY PER PROTOCOL XX ; Start 12/07/18 at 23:30 Meropenem/Sodium Chloride 50 ml @ 100 mls/hr Q8 IVPB Last administered on 12/10/18 13:00; Admin Dose 100 MLS/HR; Start 12/07/18 at 22:30 Vancomycin/Sodium Chloride 250 ml @ 125 mls/hr Q12H IVPB Last administered on 12/10/18at 12:46; Admin Dose 125 MLS/HR; Start 12/08/18 at 13:00 Insulin Aspart (Novolog Insulin Pen) NOVOLOG *MILD* ALGORI... Q6 SC Last administered on 12/10/18 11:33; Admin Dose 1 UNIT; Start 12/09/18 at 18:00 Alteplase, Recombinant (Cathflo (Activase)) 2 mg MAY REPEAT X1 PRN CATHETER IF C ATHETER REMAINS OCCULUDED Last administered on 12/10/18at 04:35; Admin Dose 2 MG; Start 12/09/18 at 23:30 CONOR CHAND NP December 10, 2018 15:19
--- NOTE | 2018-12-10 16:13 | CONS ---
Assessment/Plan Assessment/Plan Hospital Course (Demo Recall) I personally examined the patient today along with MANUEL Mcmullen. EMR reviewed. Care coordinated and directed. Consultation Date/Type/Reason Admit Date/Time Nov 26, 2018 at 20:42 Initial Consult Date 11/27/18 Requesting Provider: NADEEN CHO Date/Time of Note DATE: 12/10/18 TIME: 16:12 Exam/Review of Systems Exam Vitals Vital Signs Date Temp Pulse Resp B/P (MAP) Pulse Ox O2 O2 Flow FiO2 Time Delivery Rate 12/10/18 98.1 64 19 91/44 (60) 97 Trach 15:46 Collar 12/10/18 5.0 08:09 12/10/18 28 04:02 Intake and Output 12/09/18 12/09/18 12/10/18 1515:00 23:00 07:00 IntakeIntake Total 400 ml 880 ml 850 ml OutputOutput Total 1150 ml 1200 ml BalanceBalance 400 ml -270 ml -350 ml Results Result Diagram: 12/10/18 0657 12/08/18 0632 Results 24hrs Laboratory Tests Test 12/09/18 17:28 12/10/18 00:42 12/10/18 06:18 12/10/18 06:57 Bedside Glucose 132 125 175 White Blood Count 7.5 Red Blood Count 3.35 L Hemoglobin 8.5 L Hematocrit 28.6 L Mean Corpuscular Volume 85.4 Mean Corpuscular 25.4 L Hemoglobin Mean Corpuscular 29.7 L Hemoglobin Concent Red Cell Distribution 17.2 H Width Platelet Count 395 Mean Platelet Volume 11.0 H Immature Granulocytes % 0.400 Neutrophils % 69.8 Lymphocytes % 18.3 Monocytes % 7.2 Eosinophils % 3.1 Basophils % 1.2 Nucleated Red Blood 0.0 Cells % Immature Granulocytes # 0.030 Neutrophils # 5.2 Lymphocytes # 1.4 Monocytes # 0.5 Eosinophils # 0.2 Basophils # 0.1 Nucleated Red Blood 0.0 Cells # Test 12/10/18 11:21 Bedside Glucose 146 Medications Medication Current Medications IV Flush (NS 10 ml) 10 ml Q8 IV Last administered on 12/10/18at 13:00; Admin Dose 10 ML; Start 11/26/18 at 22:00 Ascorbic Acid (Vitamin C) 500 mg DAILY GTB Last administered on 12/10/18 08:35; Admin Dose 500 MG; Start 11/27/18 at 09:00 Baclofen (Lioresal) 20 mg TID GTB Last administered on 12/10/18 12:46; Admin Dose 20 MG; Start 11/26/18 at 21:00 Cholecalciferol (Vitamin D) 2,000 unit DAILY GTB Last administered on 12/10/18 08:36; Admin Dose 2,000 UNIT; Start 11/27/18 at 09:00 Cyanocobalamin (Vitamin B12) 1,000 mcg DAILY GTB Last administered on 12/10/18 08:36; Admin Dose 1,000 MCG; Start 11/27/18 at 09:00 Miscellaneous Information 1 ea NOTE XX ; Start 11/26/18 at 18:30 Glucose (Glutose) 15 gm Q15M PRN PO DECREASED GLUCOSE; Start 11/26/18 at 18:30 Glucose (Glutose) 22.5 gm Q15M PRN PO DECREASED GLUCOSE; Start 11/26/18 at 18:30 Dextrose (D50w Syringe) 25 ml Q15M PRN IV DECREASED GLUCOSE; Start 11/26/18 at 18:30 Dextrose (D50w Syringe) 50 ml Q15M PRN IV DECREASED GLUCOSE; Start 11/26/18 at 18:30 Glucagon (Glucagen) 1 mg Q15M PRN IM DECREASED GLUCOSE; Start 11/26/18 at 18:30 Glucose (Glutose) 15 gm Q15M PRN BUCCAL DECREASED GLUCOSE; Start 11/26/18 at 18:30 Diagnostic Test (Pha) (Accu-Chek) 1 ea 02 XX Last administered on 12/07/18at 02:00; Admin Dose 1 EA; Start 11/27/18 at 02:00 Collagenase (Santyl) 1 applic PRN PRN TOP .WOUND; Start 11/27/18 at 09:00 Lorazepam (Ativan) 1 mg Q2H PRN IV SEIZURES Last administered on 11/29/18at 14:39; Admin Dose 1 MG; Start 11/27/18 at 18:00 Aspirin (Aspirin) 81 mg DAILY GTB Last administered on 12/10/18 08:35; Admin Dose 81 MG; Start 11/29/18 at 10:00 Levetiracetam 100 ml @ 400 mls/hr Q12 IVPB Last administered on 12/10/18 08:36; Admin Dose 400 MLS/HR; Start 11/29/18 at 21:00 Acetaminophen (Tylenol Liquid) 650 mg Q4H PRN GTB MILD PAIN(1-3)OR ELEVATED TEMP Last administered on 12/07/18 20:26; Admin Dose 650 MG; Start 12/03/18 at 02:00 Sodium Hypochlorite (Dakin'S (Dilute )) 1 applic BID IRR Last administered on 12/10/18 08:36; Admin Dose 1 APPLIC; Start 12/03/18 at 11:24 Vancomycin HCl (Vanco Iv Per Pharmacy) VANCOMYCIN PER PHARMACY PER PROTOCOL XX ; Start 12/07/18 at 23:30 Meropenem/Sodium Chloride 50 ml @ 100 mls/hr Q8 IVPB Last administered on 12/10/18 13:00; Admin Dose 100 MLS/HR; Start 12/07/18 at 22:30 Vancomycin/Sodium Chloride 250 ml @ 125 mls/hr Q12H IVPB Last administered on 12/10/18 12:46; Admin Dose 125 MLS/HR; Start 12/08/18 at 13:00 Insulin Aspart (Novolog Insulin Pen) NOVOLOG *MILD* ALGORI... Q6 SC Last administered on 12/10/18 11:33; Admin Dose 1 UNIT; Start 12/09/18 at 18:00 Alteplase, Recombinant (Cathflo (Activase)) 2 mg MAY REPEAT X1 PRN CATHETER IF CATHETER REMAINS OCCULUDED Last administered on 12/10/18 04:35; Admin Dose 2 MG; Start 12/09/18 at 23:30 KASH MONDRAGON MD December 10, 2018 16:13
--- NOTE | 2018-12-10 19:34 | PN ---
Date/Time of Note Date/Time of Note DATE: 12/10/18 TIME: 19:30 Assessment/Plan VTE Prophylaxis Risk score (from Ns)>0 risk: 10 SCD applied (from Ns): Yes Pharmacological prophylaxis: other Lines/Catheters IV Catheter Type (from [facility] PICC Line Central line still needed: Yes Urinary Cath still in place: Yes Reason Cath still needed: urinary retention Assessment/Plan Hospital Course Patient remains afebrile however now with gram-positive rods bacteremia, continued on broad-spectrum antibiotics. Assessment/Plan -Sepsis with gram-negative rods bacteremia, continue antibiotics per ID. Dr. Owens is following in infection disease consultation. -New onset of seizures, continue Keppra. Dr. Sherman is following a neurology consultation. -Atrial fibrillation/ flutter with rapid ventricular response. Patient is curre ntly in sinus rhythm. Dr. Monson is following in cardiology consultation. 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 Triplett at [facility]. -Right hip wound infection with OM of R hip, completed treatment with antibiotics. -Wound dehiscence, s/p repeat debridement at [facility] on 11/03/2018. -Diabetes -Chronic diastolic CHF -Dysphagia with GT -Anemia of chronic disease -Failure to thrive, Dr. Prieto is following in palliative care consultation. Further recommendations based on clinical course. Plan of care discussed with Dr. Shnanon Result Diagram: 12/10/18 0657 12/08/18 0632 Results 24hrs Laboratory Tests Test 12/10/18 00:42 12/10/18 06:18 12/10/18 06:57 12/10/18 11:21 Bedside Glucose 125 175 146 White Blood Count 7.5 Red Blood Count 3.35 L Hemoglobin 8.5 L Hematocrit 28.6 L Mean Corpuscular Volume 85.4 Mean Corpuscular 25.4 L Hemoglobin Mean Corpuscular 29.7 L Hemoglobin Concent Red Cell Distribution 17.2 H Width Platelet Count 395 Mean Platelet Volume 11.0 H Immature Granulocytes % 0.400 Neutrophils % 69.8 Lymphocytes % 18.3 Monocytes % 7.2 Eosinophils % 3.1 Basophils % 1.2 Nucleated Red Blood 0.0 Cells % Immature Granulocytes # 0.030 Neutrophils # 5.2 Lymphocytes # 1.4 Monocytes # 0.5 Eosinophils # 0.2 Basophils # 0.1 Nucleated Red Blood 0.0 Cells # Test 12/10/18 18:14 Bedside Glucose 154 Exam/Review of Systems Exam Vitals Vital Signs Date Temp Pulse Resp B/P (MAP) Pulse Ox O2 O2 Flow FiO2 Time Delivery Rate 12/10/18 5.0 28 18:03 12/10/18 65 112/44 16:30 (66) 12/10/18 98.1 19 97 Trach 15:46 Collar Intake and Output 12/09/18 12/09/18 12/10/18 1515:00 23:00 07:00 IntakeIntake Total 400 ml 880 ml 850 ml OutputOutput Total 1150 ml 1200 ml BalanceBalance 400 ml -270 ml -350 ml Exam Constitutional: non-verbal, frail Neck: other (Tracheostomy) Respiratory: diminished breath sounds Cardiovascular: regular rate and rhythm Gastrointestinal: soft, non-tender, other (G-tube) Extremities: other (Contracted) Neurological: unresponsive Skin: other (Sacral and right hip wounds) Results Results 24hrs Laboratory Tests Test 12/10/18 00:42 12/10/18 06:18 12/10/18 06:57 12/10/18 11:21 Bedside Glucose 125 175 146 White Blood Count 7.5 Red Blood Count 3.35 L Hemoglobin 8.5 L Hematocrit 28.6 L Mean Corpuscular Volume 85.4 Mean Corpuscular 25.4 L Hemoglobin Mean Corpuscular 29.7 L Hemoglobin Concent Red Cell Distribution 17.2 H Width Platelet Count 395 Mean Platelet Volume 11.0 H Immature Granulocytes % 0.400 Neutrophils % 69.8 Lymphocytes % 18.3 Monocytes % 7.2 Eosinophils % 3.1 Basophils % 1.2 Nucleated Red Blood 0.0 Cells % Immature Granulocytes # 0.030 Neutrophils # 5.2 Lymphocytes # 1.4 Monocytes # 0.5 Eosinophils # 0.2 Basophils # 0.1 Nucleated Red Blood 0.0 Cells # Test 12/10/18 18:14 Bedside Glucose 154 Medications Medication Current Medications IV Flush (NS 10 ml) 10 ml Q8 IV Last administered on 12/10/18at 13:00; Admin Dose 10 ML; Start 11/26/18 at 22:00 Ascorbic Acid (Vitamin C) 500 mg DAILY GTB Last administered on 12/10/18 08:35; Admin Dose 500 MG; Start 11/27/18 at 09:00 Baclofen (Lioresal) 20 mg TID GTB Last administered on 12/10/18 12:46; Admin Dose 20 MG; Start 11/26/18 at 21:00 Cholecalciferol (Vitamin D) 2,000 unit DAILY GTB Last administered on 12/10/18 08:36; Admin Dose 2,000 UNIT; Start 11/27/18 at 09:00 Cyanocobalamin (Vitamin B12) 1,000 mcg DAILY GTB Last administered on 12/10/18 08:36; Admin Dose 1,000 MCG; Start 11/27/18 at 09:00 Miscellaneous Information 1 ea NOTE XX ; Start 11/26/18 at 18:30 Glucose (Glutose) 15 gm Q15M PRN PO DECREASED GLUCOSE; Start 11/26/18 at 18:30 Glucose (Glutose) 22.5 gm Q15M PRN PO DECREASED GLUCOSE; Start 11/26/18 at 18:30 Dextrose (D50w Syringe) 25 ml Q15M PRN IV DECREASED GLUCOSE; Start 11/26/18 at 18:30 Dextrose (D50w Syringe) 50 ml Q15M PRN IV DECREASED GLUCOSE; Start 11/26/18 at 18:30 Glucagon (Glucagen) 1 mg Q15M PRN IM DECREASED GLUCOSE; Start 11/26/18 at 18:30 Glucose (Glutose) 15 gm Q15M PRN BUCCAL DECREASED GLUCOSE; Start 11/26/18 at 18:30 Diagnostic Test (Pha) (Accu-Chek) 1 ea 02 XX Last administered on 12/07/18at 02:00; Admin Dose 1 EA; Start 11/27/18 at 02:00 Collagenase (Santyl) 1 applic PRN PRN TOP .WOUND; Start 11/27/18 at 09:00 Lorazepam (Ativan) 1 mg Q2H PRN IV SEIZURES Last administered on 11/29/18at 14:39; Admin Dose 1 MG; Start 11/27/18 at 18:00 Aspirin (Aspirin) 81 mg DAILY GTB Last administered on 12/10/18 08:35; Admin Dose 81 MG; Start 11/29/18 at 10:00 Levetiracetam 100 ml @ 400 mls/hr Q12 IVPB Last administered on 12/10/18 08:36; Admin Dose 400 MLS/HR; Start 11/29/18 at 21:00 Acetaminophen (Tylenol Liquid) 650 mg Q4H PRN GTB MILD PAIN(1-3)OR ELEVATED TEMP Last administered on 12/07/18 20:26; Admin Dose 650 MG; Start 12/03/18 at 02:00 Sodium Hypochlorite (Dakin'S (Dilute )) 1 applic BID IRR Last administered on 12/10/18 08:36; Admin Dose 1 APPLIC; Start 12/03/18 at 11:24 Vancomycin HCl (Vanco Iv Per Pharmacy) VANCOMYCIN PER PHARMACY PER PROTOCOL XX ; Start 12/07/18 at 23:30 Meropenem/Sodium Chloride 50 ml @ 100 mls/hr Q8 IVPB Last administered on 12/10/18 13:00; Admin Dose 100 MLS/HR; Start 12/07/18 at 22:30 Vancomycin/Sodium Chloride 250 ml @ 125 mls/hr Q12H IVPB Last administered on 12/10/18 12:46; Admin Dose 125 MLS/HR; Start 12/08/18 at 13:00 Insulin Aspart (Novolog Insulin Pen) NOVOLOG *MILD* ALGORI... Q6 SC Last administered on 12/10/18 18:16; Admin Dose 1 UNIT; Start 12/09/18 at 18:00 Alteplase, Recombinant (Cathflo (Activase)) 2 mg MAY REPEAT X1 PRN CATHETER IF CATHETER REMAINS OCCULUDED Last administered on 12/10/18 16:17; Admin Dose 2 MG; Start 12/09/18 at 23:30 LUIZ BRANNON December 10, 2018 19:34
[2018-12-11] VITALS (9 sets, daily range): BP systolic 92–109; BP diastolic 46–54; PULSE 65–84; RESP 17–26
[2018-12-11] MEDS: VANCOMYCIN 750 MG (PMX) 250 ML IVPB SCH ×2 (00:12→12:01)
[2018-12-11] MEDS: INSULIN ASPART [NOVOLOG] 3 ML PEN SC SCH ×4 (00:19→17:32)
[2018-12-11] MEDS: ACCU-CHEK XX SCH (01:49)
[2018-12-11] MEDS: MEROPENEM 1 GM/50ML(PMX) 50 ML IVPB SCH ×3 (06:04→21:26)
[2018-12-11] MEDS: ASCORBIC ACID 500 MG TAB GTB SCH (09:02)
[2018-12-11] MEDS: ASPIRIN 81 MG TAB GTB SCH (09:02)
[2018-12-11] MEDS: LEVETIRACETAM 1000 MG (PMX) 100 ML IVPB SCH ×2 (09:02→21:26)
[2018-12-11] MEDS: BACLOFEN 10 MG TAB GTB SCH ×3 (09:02→21:26)
[2018-12-11] MEDS: CHOLECALCIFEROL 2,000 UNIT CAP GTB SCH (09:02)
[2018-12-11] MEDS: CYANOCOBALAMIN 500 MCG TAB GTB SCH (09:02)
[2018-12-11] MEDS: SODIUM HYPOCHLORITE (1/40) 1 LITER BTL IRR SCH ×2 (09:03→21:27)
[2018-12-11] MEDS: BALSAM PERU/CASTOR OIL 60 GM TUBE TOP SCH (09:03)
--- NOTE | 2018-12-11 13:30 | CONS ---
Assessment/Plan Assessment/Plan Hospital Course (Demo Recall) # sepsis, endovascular infection, respiratory - sepsis on 12/07/2018 due to bacteremia and likely wound infection. Procalcitonin was 1.96 on 12/07/2018, and so we suspect this is caused by bacterial infection; - low grade fever and leukocytosis have resolved - Bacteremia - blood cultures 12/07/18 are growing GNR - s/p septic shock due to probable UTI - s/p coag negative Staph in blood cultures on 11/26/2018, probable contaminant - colonization of the airway by pseudomonas and corynebacteria on 11/26/2018; MDR pseudomonas in trach aspirate cx from 12/08/2018 likely a colonizer - h/o sepsis due to bacteremia and pneumonia - h/o bacteremia: blood cultures grew enterococcus faecalis on 09/17/2018 sec ondary to R hip wound infection as its wound culture on 09/16/2018 grew E. faecalis as well - h/o recurrent acute on chronic hypoxemic respiratory failure secondary to secretion retention, mucous plugging, major left lung atelectasis, severe shunting - h/o probable aspiration pneumonia. - h/o pneumonia due to pseudomonas on 09/30/2018. s/p Levaquin (10/03/18- 10/07/2018), Meropenem (restart 09/30/2018-10/03/18, 10/12/18 - 10/19/2018) and empiric Amikacin (09/30/18-10/03/18) - H/o intubation on 09/30/2018 - H/o tracheostomy on 10/04/2018 - h/o pseudomonas in urine culture on 09/17/2018 with mild pyuria; treated with Cefepime (09/20/2018-09/25/2018) # infection of wound, OM of R hip, pressure ulcer - colonization of the wound of R hip by pseudomonas (wound culture on 10/31/2018), acinetobacter (wound culture on 11/27/2018) - h/o repeat debridement at [facility] on 11/03/[address]. [address] Pierson, her plastic surgeon at [facility], the wound appeared clean during the I&D (my conversation with him on 11/06/2018) - H/o stage sacral decubitus ulcer extending to bilateral buttocks. She reportedly had total hip dislocation and exposed femoral head. CT pelvis showed e/o OM. Pt complete IV vancomycin (09/17/2018-10/29/2018) for sacral OM associated with E. faecalis - H/o sharp excisional debridement down to and including bone of the sacrum on 08/22/2018 and 09/19/2018 - H/o excision of R hip ulcer, girdlestone resection arthroplasty and flap reconstruction 09/23/2018. The surgical pathology showed osteomyelitis of R hip bone, soft tissue cellulitis, and bony margin of excision was free of the disease - according to Dr. Pierson who performed the wound debridement, Pt needs wound care until granulation tissue builds and infection is cleared. Then he would decide if Pt should get repeat closure or not - XR of R hip on 11/09/2009 showed the remaining R femoral shaft in transverse orientation and with lateral deviation - h/o removal of devitalized/necrotic tissue by Dr. Pierson on 10/07/2018 # renal/ - funguria, recurrent; Pt completed 3 day course of fluconazole (12/04-12/06/2018). Ramires was changed on 12/04/2018. - hematuria on 11/26/2018 - h/o moderate L hydronephrosis per renal US # heme, neuro - h/o acute on chronic anemia requiring PRBC - chronic metabolic encephalopathy - supranuclear palsy # endo, cardiac - diabetes mellitus - A fib with RVR - chronic diastolic HF (EF 40-45% with grade 1 DD per 2D Echo 10/24/2018) - h/o hypertension # allergy - penicillin allergy (throat swelling) but Pt tolerates cefepime, ceftazidime, meropenem Recommendations: - Pending results: blood cultures x2 (GNR) from 12/07, blood culture from 12/09 (NGTD), final wound culture from R hip and wound culture from sacrum (prelim MRSA, Corynebacter Jeikeium (grp JK), GNR, GNR #2, GPC/enterococcus) - Continue vancomycin and meropenem (restart 12/07/2018-) for now as pt is clinically improving and leukocytosis and low grade fever has resolved - Pt completed 3 day course of fluconazole (12/04-12/06/2018). Ramires was changed on 12/04/2018. Consultation Date/Type/Reason Admit Date/Time Nov 26, 2018 at 20:42 Initial Consult Date 11/27/18 Requesting Provider: NADEEN CHO Date/Time of Note DATE: 12/11/18 TIME: 13:28 Exam/Review of Systems Exam Vitals Vital Signs Date Temp Pulse Resp B/P (MAP) Pulse Ox O2 O2 Flow FiO2 Time Delivery Rate 12/11/18 98.3 67 25 92/49 (63) 97 T Tube 11:11 Trach Collar 12/11/18 5.0 07:49 12/11/18 28 05:23 Intake and Output 12/10/18 12/10/18 12/11/18 1515:00 23:00 07:00 IntakeIntake Total 400 ml 880 ml OutputOutput Total 2000 ml BalanceBalance 400 ml -1120 ml Constitutional: non-verbal Eyes: EOMI Respiratory: diminished breath sounds Cardiovascular: regular rate and rhythm Gastrointestinal: soft Results Result Diagram: 12/11/18 0552 12/11/18 0552 Results 24hrs Laboratory Tests Test 12/10/18 18:14 12/11/18 00:10 12/11/18 01:44 12/11/18 05:52 Bedside Glucose 154 177 146 White Blood Count 6.5 Red Blood Count 3.56 L Hemoglobin 9.1 L Hematocrit 29.8 L Mean Corpuscular Volume 83.7 Mean Corpuscular 25.6 L Hemoglobin Mean Corpuscular 30.5 L Hemoglobin Concent Red Cell Distribution 17.3 H Width Platelet Count 391 Mean Platelet Volume 11.0 H Immature Granulocytes % 0.500 H Neutrophils % 67.4 Lymphocytes % 19.8 Monocytes % 6.7 Eosinophils % 3.8 Basophils % 1.8 Nucleated Red Blood 0.0 Cells % Immature Granulocytes # 0.030 Neutrophils # 4.4 Lymphocytes # 1.3 Monocytes # 0.4 Eosinophils # 0.3 Basophils # 0.1 Nucleated Red Blood 0.0 Cells # Sodium Level 138 Potassium Level 5.1 Chloride Level 106 Carbon Dioxide Level 27 Anion Gap 5 Blood Urea Nitrogen 18 Creatinine 0.30 L Est Glomerular Filtrat Rate mL/min Glucose Level 145 Calcium Level 9.2 Magnesium Level 2.3 Test 12/11/18 06:03 12/11/18 11:19 Bedside Glucose 149 132 Medications Medication Current Medications IV Flush (NS 10 ml) 10 ml Q8 IV Last administered on 12/11/18 13:16; Admin Dose 10 ML; Start 11/26/18 at 22:00 Ascorbic Acid (Vitamin C) 500 mg DAILY GTB Last administered on 12/11/18 09:02; Admin Dose 500 MG; Start 11/27/18 at 09:00 Baclofen (Lioresal) 20 mg TID GTB Last administered on 12/11/18 12:01; Admin Dose 20 MG; Start 11/26/18 at 21:00 Cholecalciferol (Vitamin D) 2,000 unit DAILY GTB Last administered on 12/11/18 09:02; Admin Dose 2,000 UNIT; Start 11/27/18 at 09:00 Cyanocobalamin (Vitamin B12) 1,000 mcg DAILY GTB Last administered on 12/11/18 09:02; Admin Dose 1,000 MCG; Start 11/27/18 at 09:00 Miscellaneous Information 1 ea NOTE XX ; Start 11/26/18 at 18:30 Glucose (Glutose) 15 gm Q15M PRN PO DECREASED GLUCOSE; Start 11/26/18 at 18:30 Glucose (Glutose) 22.5 gm Q15M PRN PO DECREASED GLUCOSE; Start 11/26/18 at 18:30 Dextrose (D50w Syringe) 25 ml Q15M PRN IV DECREASED GLUCOSE; Start 11/26/18 at 18:30 Dextrose (D50w Syringe) 50 ml Q15M PRN IV DECREASED GLUCOSE; Start 11/26/18 at 18:30 Glucagon (Glucagen) 1 mg Q15M PRN IM DECREASED GLUCOSE; Start 11/26/18 at 18:30 Glucose (Glutose) 15 gm Q15M PRN BUCCAL DECREASED GLUCOSE; Start 11/26/18 at 18:30 Diagnostic Test (Pha) (Accu-Chek) 1 ea 02 XX Last administered on 12/11/18at 01:49; Admin Dose 1 EA; Start 11/27/18 at 02:00 Collagenase (Santyl) 1 applic PRN PRN TOP .WOUND; Start 11/27/18 at 09:00 Lorazepam (Ativan) 1 mg Q2H PRN IV SEIZURES Last administered on 11/29/18at 14:39; Admin Dose 1 MG; Start 11/27/18 at 18:00 Aspirin (Aspirin) 81 mg DAILY GTB Last administered on 12/11/18 09:02; Admin Dose 81 MG; Start 11/29/18 at 10:00 Levetiracetam 100 ml @ 400 mls/hr Q12 IVPB Last administered on 12/11/18 09:0 2; Admin Dose 400 MLS/HR; Start 11/29/18 at 21:00 Acetaminophen (Tylenol Liquid) 650 mg Q4H PRN GTB MILD PAIN(1-3)OR ELEVATED TEMP Last administered on 12/07/18 20:26; Admin Dose 650 MG; Start 12/03/18 at 02:00 Sodium Hypochlorite (Dakin'S (Dilute )) 1 applic BID IRR Last administered on 12/11/18 09:03; Admin Dose 1 APPLIC; Start 12/03/18 at 11:24 Vancomycin HCl (Vanco Iv Per Pharmacy) VANCOMYCIN PER PHARMACY PER PROTOCOL XX ; Start 12/07/18 at 23:30 Meropenem/Sodium Chloride 50 ml @ 100 mls/hr Q8 IVPB Last administered on 12/11/18 13:17; Admin Dose 100 MLS/HR; Start 12/07/18 at 22:30 Vancomycin/Sodium Chloride 250 ml @ 125 mls/hr Q12H IVPB Last administered on 12/11/18 12:01; Admin Dose 125 MLS/HR; Start 12/08/18 at 13:00 Insulin Aspart (Novolog Insulin Pen) NOVOLOG *MILD* ALGORI... Q6 SC Last administered on 12/11/18 06:09; Admin Dose 1 UNIT; Start 12/09/18 at 18:00 Alteplase, Recombinant (Cathflo (Activase)) 2 mg MAY REPEAT X1 PRN CATHETER IF CATHETER REMAINS OCCULUDED Last administered on 12/10/18 16:17; Admin Dose 2 MG; Start 12/09/18 at 23:30 KASH MONDRAGON MD December 11, 2018 13:30
--- NOTE | 2018-12-11 14:41 | CONS ---
Assessment/Plan Assessment/Plan Hospital Course (Demo Recall) IMPRESSION: 1. Atrial fibrillation/atrial flutter with rapid ventricular response-now in SR 2. Hypotension/shock state, likely septic. 3. History of cardiomyopathy with mildly depressed left ventricular ejection fraction approximately 40% to 45%. 4. History of congestive heart failure, systolic, chronic. 5. Possible pneumonia. 6. Sepsis. 7. Leukocytosis. 8. Anemia requiring transfusions. 9. Hypernatremia. 10. Coagulopathy. 11. Urinary tract infection. 12. Seizures 14. hyperkalemia-improved Recc: -Tele -serial ecg's -Continue abx's and f/u cx data -Continue keppra -Now on asa, follow for any bleeding complications -systemic anticoag held due to anemia requiring transfusions Consultation Date/Type/Reason Admit Date/Time Nov 26, 2018 at 20:42 Initial Consult Date 11/27/18 Type of Consult Cardiology Reason for Consultation AF Requesting Provider: NADEEN CHO Date/Time of Note DATE: 12/11/18 TIME: 14:40 Exam/Review of Systems Vital Signs Vitals Vital Signs Date Temp Pulse Resp B/P (MAP) Pulse Ox O2 O2 Flow FiO2 Time Delivery Rate 12/11/18 98.3 67 25 92/49 (63) 97 T Tube 11:11 Trach Collar 12/11/18 5.0 07:49 12/11/18 28 05:23 Intake and Output 12/10/18 12/10/18 12/11/18 1515:00 23:00 07:00 IntakeIntake Total 400 ml 880 ml OutputOutput Total 2000 ml BalanceBalance 400 ml -1120 ml Exam Exam Review of Systems: CONSTITUTIONAL: No fevers, chills. PULMONARY: No sob CARDIOVASCULAR: No chest pain/palpitations GASTROINTESTINAL: No nausea/vomiting. GENITOURINARY: No hematuria/dysuria. MUSCULOSKELETAL: No myagias/arthalgias. PSYCHIATRIC: The patient denies depression. NEUROLOGIC: encephalopathic Constitutional: other (encephalopathic) Psych: no complaints Head: normocephalic Neck: supple, jvd (9 cm water) Respiratory: diminished breath sounds (at bases/B) Cardiovascular: regular rate and rhythm Gastrointestinal: soft, non-tender Musculoskeletal: muscle weakness (generalized) Extremities: edema (none) Neurological: unresponsive Labs Result Diagram: 12/11/18 0552 12/11/18 0552 Results 24hrs Laboratory Tests Test 12/10/18 18:14 12/11/18 00:10 12/11/18 01:44 12/11/18 05:52 Bedside Glucose 154 177 146 White Blood Count 6.5 Red Blood Count 3.56 L Hemoglobin 9.1 L Hematocrit 29.8 L Mean Corpuscular Volume 83.7 Mean Corpuscular 25.6 L Hemoglobin Mean Corpuscular 30.5 L Hemoglobin Concent Red Cell Distribution 17.3 H Width Platelet Count 391 Mean Platelet Volume 11.0 H Immature Granulocytes % 0.500 H Neutrophils % 67.4 Lymphocytes % 19.8 Monocytes % 6.7 Eosinophils % 3.8 Basophils % 1.8 Nucleated Red Blood 0.0 Cells % Immature Granulocytes # 0.030 Neutrophils # 4.4 Lymphocytes # 1.3 Monocytes # 0.4 Eosinophils # 0.3 Basophils # 0.1 Nucleated Red Blood 0.0 Cells # Sodium Level 138 Potassium Level 5.1 Chloride Level 106 Carbon Dioxide Level 27 Anion Gap 5 Blood Urea Nitrogen 18 Creatinine 0.30 L Est Glomerular Filtrat Rate mL/min Glucose Level 145 Calcium Level 9.2 Magnesium Level 2.3 Test 12/11/18 06:03 12/11/18 11:19 Bedside Glucose 149 132 Medications Medications Current Medications IV Flush (NS 10 ml) 10 ml Q8 IV Last administered on 12/11/18at 13:16; Admin Dose 10 ML; Start 11/26/18 at 22:00 Ascorbic Acid (Vitamin C) 500 mg DAILY GTB Last administered on 12/11/18 09:02; Admin Dose 500 MG; Start 11/27/18 at 09:00 Baclofen (Lioresal) 20 mg TID GTB Last administered on 12/11/18 12:01; Admin Dose 20 MG; Start 11/26/18 at 21:00 Cholecalciferol (Vitamin D) 2,000 unit DAILY GTB Last administered on 12/11/18 09:02; Admin Dose 2,000 UNIT; Start 11/27/18 at 09:00 Cyanocobalamin (Vitamin B12) 1,000 mcg DAILY GTB Last administered on 12/11/18 09:02; Admin Dose 1,000 MCG; Start 11/27/18 at 09:00 Miscellaneous Information 1 ea NOTE XX ; Start 11/26/18 at 18:30 Glucose (Glutose) 15 gm Q15M PRN PO DECREASED GLUCOSE; Start 11/26/18 at 18:30 Glucose (Glutose) 22.5 gm Q15M PRN PO DECREASED GLUCOSE; Start 11/26/18 at 18:30 Dextrose (D50w Syringe) 25 ml Q15M PRN IV DECREASED GLUCOSE; Start 11/26/18 at 18:30 Dextrose (D50w Syringe) 50 ml Q15M PRN IV DECREASED GLUCOSE; Start 11/26/18 at 18:30 Glucagon (Glucagen) 1 mg Q15M PRN IM DECREASED GLUCOSE; Start 11/26/18 at 18:30 Glucose (Glutose) 15 gm Q15M PRN BUCCAL DECREASED GLUCOSE; Start 11/26/18 at 18:30 Diagnostic Test (Pha) (Accu-Chek) 1 ea 02 XX Last administered on 12/11/18at 01:49; Admin Dose 1 EA; Start 11/27/18 at 02:00 Collagenase (Santyl) 1 applic PRN PRN TOP .WOUND; Start 11/27/18 at 09:00 Lorazepam (Ativan) 1 mg Q2H PRN IV SEIZURES Last administered on 11/29/18at 14:39; Admin Dose 1 MG; Start 11/27/18 at 18:00 Aspirin (Aspirin) 81 mg DAILY GTB Last administered on 12/11/18 09:02; Admin Dose 81 MG; Start 11/29/18 at 10:00 Levetiracetam 100 ml @ 400 mls/hr Q12 IVPB Last administered on 12/11/18 09:02; Admin Dose 400 MLS/HR; Start 11/29/18 at 21:00 Acetaminophen (Tylenol Liquid) 650 mg Q4H PRN GTB MILD PAIN(1-3)OR ELEVATED TEMP Last administered on 12/07/18 20:26; Admin Dose 650 MG; Start 12/03/18 at 02:00 Sodium Hypochlorite (Dakin'S (Dilute )) 1 applic BID IRR Last administered on 12/11/18 09:03; Admin Dose 1 APPLIC; Start 12/03/18 at 11:24 Vancomycin HCl (Vanco Iv Per Pharmacy) VANCOMYCIN PER PHARMACY PER PROTOCOL XX ; Start 12/07/18 at 23:30 Meropenem/Sodium Chloride 50 ml @ 100 mls/hr Q8 IVPB Last administered on 12/11/18at 13:17; Admin Dose 100 MLS/HR; Start 12/07/18 at 22:30 Vancomycin/Sodium Chloride 250 ml @ 125 mls/hr Q12H IVPB Last administered on 12/11/18at 12:01; Admin Dose 125 MLS/HR; Start 12/08/18 at 13:00 Insulin Aspart (Novolog Insulin Pen) NOVOLOG *MILD* ALGORI... Q6 SC Last administered on 12/11/18at 06:09; Admin Dose 1 UNIT; Start 12/09/18 at 18:00 Alteplase, Recombinant (Cathflo (Activase)) 2 mg MAY REPEAT X1 PRN CATHETER IF CATHETER REMAINS OCCULUDED Last administered on 12/10/18at 16:17; Admin Dose 2 MG; Start 12/09/18 at 23:30 MAITE VAZQUEZ December 11, 2018 14:41
--- NOTE | 2018-12-11 14:48 | PN ---
Date/Time of Note Date/Time of Note DATE: 12/11/18 TIME: 14:44 Assessment/Plan VTE Prophylaxis Risk score (from Ns)>0 risk: 10 SCD applied (from [facility]): Yes Pharmacological prophylaxis: NA/contraindicated Pharm contraindication: blood coag disorder Lines/Catheters IV Catheter Type (from [facility]): PICC Line Central line still needed: Yes Urinary Cath still in place: Yes Reason Cath still needed: urinary retention Assessment/Plan Hospital Course No acute events overnight, patient continues on cool aerosol mist via tracheo stomy, patient is nonverbal, opens eyes, does not follow any commands, patient remains afebrile, patient is continued on antibiotics for gram-negative rods bacteremia and wound infection, pending family conference regarding the CODE STATUS and goals of care with Dr. Prieto tomorrow. Assessment/Plan -Sepsis with gram-negative rods bacteremia and wound infection, continue ant ibiotics per ID. Dr. Owens is following in infection disease consultation. -Pseudomonal colonization of respiratory tract -New onset of seizures, continue Keppra. Dr. Sherman is following a neurology consultation. -Atrial fibrillation/ flutter with rapid ventricular response. Patient is currently in sinus rhythm. Dr. Monson is following in cardiology consultation. 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 Triplett at [facility]. -Right hip wound infection with OM of R hip, completed treatment with antibiotics. -Wound dehiscence, s/p repeat debridement at [facility] on 11/03/2018. -Diabetes -Chronic diastolic CHF -Dysphagia with GT -Anemia of chronic disease -Failure to thrive, Dr. Prieto is following in palliative care consultation. Further recommendations based on clinical course. Plan of care discussed with Dr. Shannon Result Diagram: 12/11/18 0552 12/11/18 0552 Results 24hrs Laboratory Tests Test 12/10/18 18:14 12/11/18 00:10 12/11/18 01:44 12/11/18 05:52 Bedside Glucose 154 177 146 White Blood Count 6.5 Red Blood Count 3.56 L Hemoglobin 9.1 L Hematocrit 29.8 L Mean Corpuscular Volume 83.7 Mean Corpuscular 25.6 L Hemoglobin Mean Corpuscular 30.5 L Hemoglobin Concent Red Cell Distribution 17.3 H Width Platelet Count 391 Mean Platelet Volume 11.0 H Immature Granulocytes % 0.500 H Neutrophils % 67.4 Lymphocytes % 19.8 Monocytes % 6.7 Eosinophils % 3.8 Basophils % 1.8 Nucleated Red Blood 0.0 Cells % Immature Granulocytes # 0.030 Neutrophils # 4.4 Lymphocytes # 1.3 Monocytes # 0.4 Eosinophils # 0.3 Basophils # 0.1 Nucleated Red Blood 0.0 Cells # Sodium Level 138 Potassium Level 5.1 Chloride Level 106 Carbon Dioxide Level 27 Anion Gap 5 Blood Urea Nitrogen 18 Creatinine 0.30 L Est Glomerular Filtrat Rate mL/min Glucose Level 145 Calcium Level 9.2 Magnesium Level 2.3 Test 12/11/18 06:03 12/11/18 11:19 Bedside Glucose 149 132 Exam/Review of Systems Exam Vitals Vital Signs Date Temp Pulse Resp B/P (MAP) Pulse Ox O2 O2 Flow FiO2 Time Delivery Rate 12/11/18 98.3 67 25 92/49 (63) 97 T Tube 11:11 Trach Collar 12/11/18 5.0 07:49 12/11/18 28 05:23 Intake and Output 12/10/18 12/10/18 12/11/18 1515:00 23:00 07:00 IntakeIntake Total 400 ml 880 ml OutputOutput Total 2000 ml BalanceBalance 400 ml -1120 ml Exam Constitutional: non-verbal, frail Neck: other (Tracheostomy) Respiratory: diminished breath sounds Cardiovascular: regular rate and rhythm Gastrointestinal: soft, non-tender, other (G-tube) Extremities: other (Contracted) Neurological: unresponsive Skin: other (Sacral and right hip wounds) Results Results 24hrs Laboratory Tests Test 12/10/18 18:14 12/11/18 00:10 12/11/18 01:44 12/11/18 05:52 Bedside Glucose 154 177 146 White Blood Count 6.5 Red Blood Count 3.56 L Hemoglobin 9.1 L Hematocrit 29.8 L Mean Corpuscular Volume 83.7 Mean Corpuscular 25.6 L Hemoglobin Mean Corpuscular 30.5 L Hemoglobin Concent Red Cell Distribution 17.3 H Width Platelet Count 391 Mean Platelet Volume 11.0 H Immature Granulocytes % 0.500 H Neutrophils % 67.4 Lymphocytes % 19.8 Monocytes % 6.7 Eosinophils % 3.8 Basophils % 1.8 Nucleated Red Blood 0.0 Cells % Immature Granulocytes # 0.030 Neutrophils # 4.4 Lymphocytes # 1.3 Monocytes # 0.4 Eosinophils # 0.3 Basophils # 0.1 Nucleated Red Blood 0.0 Cells # Sodium Level 138 Potassium Level 5.1 Chloride Level 106 Carbon Dioxide Level 27 Anion Gap 5 Blood Urea Nitrogen 18 Creatinine 0.30 L Est Glomerular Filtrat Rate mL/min Glucose Level 145 Calcium Level 9.2 Magnesium Level 2.3 Test 12/11/18 06:03 12/11/18 11:19 Bedside Glucose 149 132 Medications Medication Current Medications IV Flush (NS 10 ml) 10 ml Q8 IV Last administered on 12/11/18 13:16; Admin Dose 10 ML; Start 11/26/18 at 22:00 Ascorbic Acid (Vitamin C) 500 mg DAILY GTB Last administered on 12/11/18 09:02; Admin Dose 500 MG; Start 11/27/18 at 09:00 Baclofen (Lioresal) 20 mg TID GTB Last administered on 12/11/18 12:01; Admin Dose 20 MG; Start 11/26/18 at 21:00 Cholecalciferol (Vitamin D) 2,000 unit DAILY GTB Last administered on 12/11/18 09:02; Admin Dose 2,000 UNIT; Start 11/27/18 at 09:00 Cyanocobalamin (Vitamin B12) 1,000 mcg DAILY GTB Last administered on 12/11/18 09:02; Admin Dose 1,000 MCG; Start 11/27/18 at 09:00 Miscellaneous Information 1 ea NOTE XX ; Start 11/26/18 at 18:30 Glucose (Glutose) 15 gm Q15M PRN PO DECREASED GLUCOSE; Start 11/26/18 at 18:30 Glucose (Glutose) 22.5 gm Q15M PRN PO DECREASED GLUCOSE; Start 11/26/18 at 18:30 Dextrose (D50w Syringe) 25 ml Q15M PRN IV DECREASED GLUCOSE; Start 11/26/18 at 18:30 Dextrose (D50w Syringe) 50 ml Q15M PRN IV DECREASED GLUCOSE; Start 11/26/18 at 18:30 Glucagon (Glucagen) 1 mg Q15M PRN IM DECREASED GLUCOSE; Start 11/26/18 at 18:30 Glucose (Glutose) 15 gm Q15M PRN BUCCAL DECREASED GLUCOSE; Start 11/26/18 at 18:30 Diagnostic Test (Pha) (Accu-Chek) 1 ea 02 XX Last administered on 12/11/18 01:49; Admin Dose 1 EA; Start 11/27/18 at 02:00 Collagenase (Santyl) 1 applic PRN PRN TOP .WOUND; Start 11/27/18 at 09:00 Lorazepam (Ativan) 1 mg Q2H PRN IV SEIZURES Last administered on 11/29/18 14:39; Admin Dose 1 MG; Start 11/27/18 at 18:00 Aspirin (Aspirin) 81 mg DAILY GTB Last administered on 12/11/18 09:02; Admin Dose 81 MG; Start 11/29/18 at 10:00 Levetiracetam 100 ml @ 400 mls/hr Q12 IVPB Last administered on 12/11/18 09:02; Admin Dose 400 MLS/HR; Start 11/29/18 at 21:00 Acetaminophen (Tylenol Liquid) 650 mg Q4H PRN GTB MILD PAIN(1-3)OR ELEVATED TEMP Last administered on 12/07/18 20:26; Admin Dose 650 MG; Start 12/03/18 at 02:00 Sodium Hypochlorite (Dakin'S (Dilute )) 1 applic BID IRR Last administered on 12/11/18 09:03; Admin Dose 1 APPLIC; Start 12/03/18 at 11:24 Vancomycin HCl (Vanco Iv Per Pharmacy) VANCOMYCIN PER PHARMACY PER PROTOCOL XX ; Start 12/07/18 at 23:30 Meropenem/Sodium Chloride 50 ml @ 100 mls/hr Q8 IVPB Last administered on 13:17; Admin Dose 100 MLS/HR; Start 12/07/18 at 22:30 Vancomycin/Sodium Chloride 250 ml @ 125 mls/hr Q12H IVPB Last administered on 12/11/18 12:01; Admin Dose 125 MLS/HR; Start 12/08/18 at 13:00 Insulin Aspart (Novolog Insulin Pen) NOVOLOG *MILD* ALGORI... Q6 SC Last administered on 5/8/19at 06:09; Admin Dose 1 UNIT; Start 12/09/18 at 18:00 Alteplase, Recombinant (Cathflo (Activase)) 2 mg MAY REPEAT X1 PRN CATHETER IF CATHETER REMAINS OCCULUDED Last administered on 12/10/18at 16:17; Admin Dose 2 MG; Start 12/09/18 at 23:30 LUIZ BRANNON December 11, 2018 14:48
--- NOTE | 2018-12-11 18:04 | CONS ---
Assessment/Plan Assessment/Plan Hospital Course 73 yo F with PSP and multiple other comorbidities who is admitted to the [facility] ICU for management of presumed septic shock. On 11/27, she was noted to have new onset seizures... for which neurology is consulted. On 11/29, she was noted to have a recurrence of the same.. The clinical picture could be consistent with epilepsy... Meningoencephalitis is less likely.. MRI brain is reassuringly negative for acute intracranial pathology...though notable for volume loss/ventriculomegaly. EEG was without epileptiform activity.. P: Cont Keppra maintenance 1g BID for now Ativan IV PRN prolonged seizure >5 min or for cluster Supportive care and other medical management per primary Will sign off. Please call with Qs. Consultation Date/Type/Reason Admit Date/Time Nov 26, 2018 at 20:42 Type of Consult Neurology Requesting Provider: NADEEN CHO Date/Time of Note DATE: 12/11/18 TIME: 18:04 24 HR Interval Summary Free Text/Dictation Continues acute care. No further seizure episodes reported. Subjective hx not possible: pt non-verbal Exam Vital Signs Vitals Vital Signs Date Temp Pulse Resp B/P (MAP) Pulse Ox O2 O2 Flow FiO2 Time Delivery Rate 12/11/18 82 16 99 Aerosol 5.0 28 16:46 12/11/18 98.3 92/49 (63) 15:34 Intake and Output 12/10/18 12/10/18 12/11/18 1414:59 22:59 06:59 IntakeIntake Total 400 ml 880 ml OutputOutput Total 2000 ml BalanceBalance 400 ml -1120 ml Exam PE: Gen Appearance: No Apparent Distress HEENT: Trach; on t-bar Cardiovascular: Regular rate Abdomen: Soft; PEG Extremities: Dry; BL wrists contracted NE: The patient was obtunded and nonverbal. The pt blinks spontaneously. Does not track or follow any commands. Cranial nerve examination was limited by mental status. Pupils were equal and reactive to light. There was no afferent pupillary defect. Funduscopic examin ation was limited. Face was grossly symmetric, w/ present corneal and cough reflexes. Tone was spastic in the UE. Muscle bulk was diminished. I did not see fasciculations. The patient withdrew to noxious stimulation x 4. Coordination and gait testing was limited by mental status. Arm and leg reflexes were within normal limits and symmetric. Garza's sign was absent. Plantar responses were flexor. TINO PRINCE NP December 11, 2018 18:04
[2018-12-12] VITALS (7 sets, daily range): BP systolic 97–118; BP diastolic 50–61; PULSE 57–97; RESP 18–20
[2018-12-12] MEDS: ACCU-CHEK XX SCH (02:00)
[2018-12-12] MEDS: VANCOMYCIN 750 MG (PMX) 250 ML IVPB SCH ×2 (02:42→13:00)
[2018-12-12] MEDS: MEROPENEM 1 GM/50ML(PMX) 50 ML IVPB SCH ×2 (06:07→14:49)
[2018-12-12] MEDS: INSULIN ASPART [NOVOLOG] 3 ML PEN SC SCH ×4 (06:21→18:27)
[2018-12-12] MEDS: ASCORBIC ACID 500 MG TAB GTB SCH (09:48)
[2018-12-12] MEDS: LEVETIRACETAM 1000 MG (PMX) 100 ML IVPB SCH ×2 (09:48→22:00)
[2018-12-12] MEDS: ASPIRIN 81 MG TAB GTB SCH (09:48)
[2018-12-12] MEDS: BACLOFEN 10 MG TAB GTB SCH ×3 (09:48→21:59)
[2018-12-12] MEDS: CHOLECALCIFEROL 2,000 UNIT CAP GTB SCH (09:48)
[2018-12-12] MEDS: BALSAM PERU/CASTOR OIL 60 GM TUBE TOP SCH (09:53)
[2018-12-12] MEDS: CYANOCOBALAMIN 500 MCG TAB GTB SCH (11:56)
[2018-12-12] MEDS: SODIUM HYPOCHLORITE (1/40) 1 LITER BTL IRR SCH ×2 (11:56→21:59)
[2018-12-12] MEDS ORDERED: ALBUTEROL/IPRATROPIUM (NEB) 3 ML AMP HHN PRN (12:30)
--- NOTE | 2018-12-12 13:04 | CONS ---
Assessment/Plan Assessment/Plan Hospital Course (Demo Recall) IMPRESSION: 1. Atrial fibrillation/atrial flutter with rapid ventricular response-now in SR 2. Hypotension/shock state, likely septic. 3. History of cardiomyopathy with mildly depressed left ventricular ejection fraction approximately 40% to 45%. 4. History of congestive heart failure, systolic, chronic. 5. Possible pneumonia. 6. Sepsis. 7. Leukocytosis. 8. Anemia requiring transfusions. 9. Hypernatremia. 10. Coagulopathy. 11. Urinary tract infection. 12. Seizures 14. hyperkalemia-improved Recc: -Now on med surg -serial ecg's -Continue abx's and f/u cx data -Continue keppra -Now on asa, follow for any bleeding complications -systemic anticoag held due to anemia requiring transfusions Consultation Date/Type/Reason Admit Date/Time Nov 26, 2018 at 20:42 Initial Consult Date 11/27/18 Type of Consult Cardiology Reason for Consultation AF Requesting Provider: NADEEN CHO Date/Time of Note DATE: 12/12/18 TIME: 13:02 Exam/Review of Systems Vital Signs Vitals Vital Signs Date Temp Pulse Resp B/P (MAP) Pulse Ox O2 O2 Flow FiO2 Time Delivery Rate 12/12/18 92 18 118/61 91 Trach 5.0 12:00 (80) Collar 12/12/18 98.9 08:42 12/12/18 28 08:32 Intake and Output 12/11/18 12/11/18 12/12/18 1515:00 23:00 07:00 IntakeIntake Total 1280 ml 880 ml 300 ml OutputOutput Total 800 ml 1100 ml BalanceBalance 480 ml -220 ml 300 ml Exam Exam Review of Systems: CONSTITUTIONAL: No fevers, chills. PULMONARY: No sob CARDIOVASCULAR: No chest pain/palpitations GASTROINTESTINAL: No nausea/vomiting. GENITOURINARY: No hematuria/dysuria. MUSCULOSKELETAL: No myagias/arthalgias. PSYCHIATRIC: The patient denies depression. NEUROLOGIC: encephalopathic Constitutional: other (encephalopathic) Psych: no complaints Head: normocephalic ENMT: mucosa pink and moist Neck: supple, jvd (8 cm water) Respiratory: clear to auscultation Cardiovascular: regular rate and rhythm Gastrointestinal: soft, non-tender Musculoskeletal: muscle tone (normal) Extremities: edema (none) Neurological: other (No focal deficits) Labs Result Diagram: 12/11/18 0552 12/11/18 0552 Results 24hrs Laboratory Tests Test 12/11/18 17:28 12/12/18 00:41 12/12/18 06:11 12/12/18 11:58 Bedside Glucose 122 132 142 126 Vancomycin Level Trough 21.2 *H Medications Medications Current Medications IV Flush (NS 10 ml) 10 ml Q8 IV Last administered on 12/12/18 06:07; Admin Dose 10 ML; Start 11/26/18 at 22:00 Ascorbic Acid (Vitamin C) 500 mg DAILY GTB Last administered on 12/12/18 09:48; Admin Dose 500 MG; Start 11/27/18 at 09:00 Baclofen (Lioresal) 20 mg TID GTB Last administered on 12/12/18 09:48; Admin Dose 20 MG; Start 11/26/18 at 21:00 Cholecalciferol (Vitamin D) 2,000 unit DAILY GTB Last administered on 12/12/18 09:48; Admin Dose 2,000 UNIT; Start 11/27/18 at 09:00 Cyanocobalamin (Vitamin B12) 1,000 mcg DAILY GTB Last administered on 12/12/18 11:56; Admin Dose 1,000 MCG; Start 11/27/18 at 09:00 Miscellaneous Information 1 ea NOTE XX ; Start 11/26/18 at 18:30 Glucose (Glutose) 15 gm Q15M PRN PO DECREASED GLUCOSE; Start 11/26/18 at 18:30 Glucose (Glutose) 22.5 gm Q15M PRN PO DECREASED GLUCOSE; Start 11/26/18 at 18:30 Dextrose (D50w Syringe) 25 ml Q15M PRN IV DECREASED GLUCOSE; Start 11/26/18 at 18:30 Dextrose (D50w Syringe) 50 ml Q15M PRN IV DECREASED GLUCOSE; Start 11/26/18 at 18:30 Glucagon (Glucagen) 1 mg Q15M PRN IM DECREASED GLUCOSE; Start 11/26/18 at 18:30 Glucose (Glutose) 15 gm Q15M PRN BUCCAL DECREASED GLUCOSE; Start 11/26/18 at 18:30 Diagnostic Test (Pha) (Accu-Chek) 1 ea 02 XX Last administered on 5/8/19at 01:49; Admin Dose 1 EA; Start 11/27/18 at 02:00 Collagenase (Santyl) 1 applic PRN PRN TOP .WOUND; Start 11/27/18 at 09:00 Lorazepam (Ativan) 1 mg Q2H PRN IV SEIZURES Last administered on 11/29/18 14:39; Admin Dose 1 MG; Start 11/27/18 at 18:00 Aspirin (Aspirin) 81 mg DAILY GTB Last administered on 12/12/18 09:48; Admin Do se 81 MG; Start 11/29/18 at 10:00 Levetiracetam 100 ml @ 400 mls/hr Q12 IVPB Last administered on 12/12/18 09:48; Admin Dose 400 MLS/HR; Start 11/29/18 at 21:00 Acetaminophen (Tylenol Liquid) 650 mg Q4H PRN GTB MILD PAIN(1-3)OR ELEVATED TEMP Last administered on 12/07/18 20:26; Admin Dose 650 MG; Start 12/03/18 at 02:00 Sodium Hypochlorite (Dakin'S (Dilute )) 1 applic BID IRR Last administered on 12/12/18 11:56; Admin Dose 1 APPLIC; Start 12/03/18 at 11:24 Vancomycin HCl (Vanco Iv Per Pharmacy) VANCOMYCIN PER PHARMACY PER PROTOCOL XX ; Start 12/07/18 at 23:30 Meropenem/Sodium Chloride 50 ml @ 100 mls/hr Q8 IVPB Last administered on 12/12/18 06:07; Admin Dose 100 MLS/HR; Start 12/07/18 at 22:30 Vancomycin/Sodium Chloride 250 ml @ 125 mls/hr Q12H IVPB Last administered on 12/12/18 02:42; Admin Dose 125 MLS/HR; Start 12/08/18 at 13:00 Insulin Aspart (Novolog Insulin Pen) NOVOLOG *MILD* ALGORI... Q6 SC Last administered on 12/12/18 06:21; Admin Dose 1 UNIT; Start 12/09/18 at 18:00 Alteplase, Recombinant (Cathflo (Activase)) 2 mg MAY REPEAT X1 PRN CATHETER IF CATHETER REMAINS OCCULUDED Last administered on 12/10/18 16:17; Admin Dose 2 MG; Start 12/09/18 at 23:30 Albuterol/ Ipratropium (Duoneb) 3 ml Q6HWA RESP THERAPY HHN ; Start 12/12/18 at 14:00 Albuterol/ Ipratropium (Duoneb) 3 ml Q4H RESP THERAPY PRN HHN SHORTNESS OF BREATH; Start 12/12/18 at 12:30 MAITE VAZQUEZ December 12, 2018 13:04
[2018-12-12] MEDS: ALBUTEROL/IPRATROPIUM (NEB) 3 ML AMP HHN SCH ×2 (13:13→19:52)
--- NOTE | 2018-12-12 15:06 | CONS ---
Assessment/Plan Assessment/Plan Hospital Course (Demo Recall) # sepsis, endovascular infection, respiratory - sepsis on 12/12/18 unknown etiology; suspect possible intra abdominal infection, blood cxs grew bacteroides fragilis - sepsis on 12/07/2018 due to bacteremia and likely wound infection. Procalcitonin was 1.96 on 12/07/2018, and so we suspect this is caused by bacterial infection; - low grade fever and leukocytosis have resolved - Bacteremia - blood cultures 12/07/18 are growing GNR - s/p septic shock due to probable UTI - s/p coag negative Staph in blood cultures on 11/26/2018, probable contaminant - colonization of the airway by pseudomonas and corynebacteria on 11/26/2018; MDR pseudomonas in trach aspirate cx from 12/08/2018 likely a colonizer - h/o sepsis due to bacteremia and pneumonia - h/o bacteremia: blood cultures grew enterococcus faecalis on 09/17/2018 secondary to R hip wound infection as its wound culture on 09/16/2018 grew E. faecalis as well - h/o recurrent acute on chronic hypoxemic respiratory failure secondary to secretion retention, mucous plugging, major left lung atelectasis, severe shunting - h/o probable aspiration pneumonia. - h/o pneumonia due to pseudomonas on 09/30/2018. s/p Levaquin (10/03/18- 10/07/2018), Meropenem (restart 09/30/2018-10/03/18, 10/12/18 - 10/19/2018) and empiric Amikacin (09/30/18-10/03/18) - H/o intubation on 09/30/2018 - H/o tracheostomy on 10/04/2018 - h/o pseudomonas in urine culture on 09/17/2018 with mild pyuria; treated with Cefepime (09/20/2018-09/25/2018) # infection of wound, OM of R hip, pressure ulcer - colonization of the wound of R hip by pseudomonas (wound culture on 10/31/2018), acinetobacter (wound culture on 11/27/2018) - h/o repeat debridement at [facility] on 11/03/[address]. [address] Pierson, her plastic surgeon at [facility], the wound appeared clean during the I&D (my conversation with him on 11/06/2018) - H/o stage sacral decubitus ulcer extending to bilateral buttocks. She reportedly had total hip dislocation and exposed femoral head. CT pelvis showed e/o OM. Pt complete IV vancomycin (09/17/2018-10/29/2018) for sacral OM associated with E. faecalis - H/o sharp excisional debridement down to and including bone of the sacrum on 08/22/2018 and 09/19/2018 - H/o excision of R hip ulcer, girdlestone resection arthroplasty and flap reconstruction 09/23/2018. The surgical pathology showed osteomyelitis of R hip bone, soft tissue cellulitis, and bony margin of excision was free of the d isease - according to Dr. Pierson who performed the wound debridement, Pt needs wound care until granulation tissue builds and infection is cleared. Then he would decide if Pt should get repeat closure or not - XR of R hip on 11/09/2009 showed the remaining R femoral shaft in transverse orientation and with lateral deviation - h/o removal of devitalized/necrotic tissue by Dr. Pierson on 10/07/2018 # renal/ - funguria, recurrent; Pt completed 3 day course of fluconazole (12/04-12/06/2018). Ramires was changed on 12/04/2018. - hematuria on 11/26/2018 - h/o moderate L hydronephrosis per renal US # heme, neuro - h/o acute on chronic anemia requiring PRBC - chronic metabolic encephalopathy - supranuclear palsy # endo, cardiac - diabetes mellitus - A fib with RVR - chronic diastolic HF (EF 40-45% with grade 1 DD per 2D Echo 10/24/2018) - h/o hypertension # allergy - penicillin allergy (throat swelling) but Pt tolerates cefepime, ceftazidime, meropenem Recommendations: - D/c Merrem - Start Ceftazidime (12/12/18 - ) - Start Flagyl IV ( for possible intra abdominal infection in result of blood cxs +Bacteroides fragilis ) - Continue vancomycin (restart 12/07/2018-) - [place] culture - ordered - CXR, procalcitonin, and LA in AM - Pt completed 3 day course of fluconazole (12/04-12/06/2018). Ramires was changed on 12/04/2018 - Consider goals of care Above plan d/w via telephone on 12/12/18 at 1625 >10 minutes. Plan and new orders d/w JAY Guerra. Consultation Date/Type/Reason Admit Date/Time Nov 26, 2018 at 20:42 Initial Consult Date 11/27/18 Requesting Provider: NADEEN CHO Date/Time of Note DATE: 12/12/18 TIME: 15:06 24 HR Interval Summary Free Text/Dictation Fever 102.1F, S. Tachy Most recent WBC 6.5 Per d/w nurse Mari she will administer tylenol and recheck temp. Subjective hx not possible: pt non-verbal Constitutional: febrile Detailed Summary Additional Comments Unable to obtain due to chronic encephalopathy. Exam/Review of Systems Exam Vitals Vital Signs Date Temp Pulse Resp B/P (MAP) Pulse Ox O2 O2 Flow FiO2 Time Delivery Rate 12/12/18 96 10.0 13:00 12/12/18 104 22 Aerosol 40 13:00 T Tube 12/12/18 118/61 12:00 (80) 12/12/18 98.9 08:42 Intake and Output 12/11/18 12/11/18 12/12/18 1515:00 23:00 07:00 IntakeIntake Total 1280 ml 880 ml 300 ml OutputOutput Total 800 ml 1100 ml BalanceBalance 480 ml -220 ml 300 ml Exam Constitutional: non-verbal, frail Psych: confusion Head: normocephalic, atraumatic Eyes: nl conjunctiva, nl lids ENMT: nl external ears & nose, nl nasal mucosa & septum, mucosa pink and moist Neck: other (trach site c/d/i) Respiratory: clear to auscultation, normal air movement, on cool aerosol Cardiovascular: regular rate and rhythm, nl pulses. S.Tachy Gastrointestinal: soft, non-tender, other (GT) Genitourinary - Female: other (FC) Musculoskeletal: other (contractured, R hip wound covered with dressing c/d/i); No swelling Extremities: No edema Neurological: lethargic, unresponsive Skin: rash or lesions (+R hip and coccyx wound covered with dressing c/d/i) Results Result Diagram: 12/11/18 0552 12/11/18 0552 Results 24hrs Laboratory Tests Test 12/11/18 17:28 12/12/18 00:41 12/12/18 06:11 12/12/18 11:58 Bedside Glucose 122 132 142 126 Vancomycin Level Trough 21.2 *H Medications Medication Current Medications IV Flush (NS 10 ml) 10 ml Q8 IV Last administered on 12/12/18 14:50; Admin Dose 10 ML; Start 11/26/18 at 22:00 Ascorbic Acid (Vitamin C) 500 mg DAILY GTB Last administered on 12/12/18 09:48; Admin Dose 500 MG; Start 11/27/18 at 09:00 Baclofen (Lioresal) 20 mg TID GTB Last administered on 12/12/18 14:49; Admin Dose 20 MG; Start 11/26/18 at 21:00 Cholecalciferol (Vitamin D) 2,000 unit DAILY GTB Last administered on 12/12/18 09:48; Admin Dose 2,000 UNIT; Start 11/27/18 at 09:00 Cyanocobalamin (Vitamin B12) 1,000 mcg DAILY GTB Last administered on 12/12/18 11:56; Admin Dose 1,000 MCG; Start 11/27/18 at 09:00 Miscellaneous Information 1 ea NOTE XX ; Start 11/26/18 at 18:30 Glucose (Glutose) 15 gm Q15M PRN PO DECREASED GLUCOSE; Start 11/26/18 at 18:30 Glucose (Glutose) 22.5 gm Q15M PRN PO DECREASED GLUCOSE; Start 11/26/18 at 18:30 Dextrose (D50w Syringe) 25 ml Q15M PRN IV DECREASED GLUCOSE; Start 11/26/18 at 18:30 Dextrose (D50w Syringe) 50 ml Q15M PRN IV DECREASED GLUCOSE; Start 11/26/18 at 18:30 Glucagon (Glucagen) 1 mg Q15M PRN IM DECREASED GLUCOSE; Start 11/26/18 at 18:30 Glucose (Glutose) 15 gm Q15M PRN BUCCAL DECREASED GLUCOSE; Start 11/26/18 at 18:30 Diagnostic Test (Pha) (Accu-Chek) 1 ea 02 XX Last administered on 12/11/18 01:49; Admin Dose 1 EA; Start 11/27/18 at 02:00 Collagenase (Santyl) 1 applic PRN PRN TOP .WOUND; Start 11/27/18 at 09:00 Lorazepam (Ativan) 1 mg Q2H PRN IV SEIZURES Last administered on 11/29/18 14:39; Admin Dose 1 MG; Start 11/27/18 at 18:00 Aspirin (Aspirin) 81 mg DAILY GTB Last administered on 12/12/18 09:48; Admin Dose 81 MG; Start 11/29/18 at 10:00 Levetiracetam 100 ml @ 400 mls/hr Q12 IVPB Last administered on 12/12/18 09:48; Admin Dose 400 MLS/HR; Start 11/29/18 at 21:00 Acetaminophen (Tylenol Liquid) 650 mg Q4H PRN GTB MILD PAIN(1-3)OR ELEVATED TEMP Last administered on 12/07/18 20:26; Admin Dose 650 MG; Start 12/03/18 at 02:00 Sodium Hypochlorite (Dakin'S (Dilute )) 1 applic BID IRR Last administered on 12/12/18 11:56; Admin Dose 1 APPLIC; Start 12/03/18 at 11:24 Vancomycin HCl (Vanco Iv Per Pharmacy) VANCOMYCIN PER PHARMACY PER PROTOCOL XX ; Start 12/07/18 at 23:30 Meropenem/Sodium Chloride 50 ml @ 100 mls/hr Q8 IVPB Last administered on 12/12/18 14:49; Admin Dose 100 MLS/HR; Start 12/07/18 at 22:30 Insulin Aspart (Novolog Insulin Pen) NOVOLOG *MILD* ALGORI... Q6 SC Last administered on 12/12/18 06:21; Admin Dose 1 UNIT; Start 12/09/18 at 18:00 Alteplase, Recombinant (Cathflo (Activase)) 2 mg MAY REPEAT X1 PRN CATHETER IF CATHETER REMAINS OCCULUDED Last administered on 12/10/18 16:17; Admin Dose 2 MG; Start 12/09/18 at 23:30 Albuterol/ Ipratropium (Duoneb) 3 ml Q6HWA RESP THERAPY HHN Last administered on 12/12/18 13:13; Admin Dose 3 ML; Start 12/12/18 at 14:00 Albuterol/ Ipratropium (Duoneb) 3 ml Q4H RESP THERAPY PRN HHN SHORTNESS OF BREATH; Start 12/12/18 at 12:30 Vancomycin HCl 250 ml @ 125 mls/hr Q24H IVPB ; Start 12/13/18 at 03:00 AGNES EHRNANDEZ NP December 12, 2018 15:06
[2018-12-12] MEDS: ACETAMINOPHEN 650MG/20.3ML CUP GTB PRN (16:18)
--- NOTE | 2018-12-12 17:45 | PN ---
Date/Time of Note Date/Time of Note DATE: 12/12/18 TIME: 17:43 Assessment/Plan VTE Prophylaxis Risk score (from Ns)>0 risk: 3 SCD applied (from Ns): Yes Pharmacological prophylaxis: LMWH Lines/Catheters IV Catheter Type (from Nrs): PICC Line Central line still needed: Yes Urinary Cath still in place: Yes Reason Cath still needed: urinary retention Assessment/Plan Hospital Course Patient spiked fever, blood cultures and chest x-ray, patient is continues on full result mist via tracheostomy, continue pulmonary toilet and tracheostomy ca re. Assessment/Plan -Sepsis with gram-negative rods bacteremia and wound infection, continue antibiotics per ID. Dr. Owens is following in infection disease consultation. -Pseudomonal colonization of respiratory tract -New onset of seizures, continue Keppra. Dr. Sherman is following a neurology consultation. -Atrial fibrillation/ flutter with rapid ventricular response. Patient is currently in sinus rhythm. Dr. Monson is following in cardiology consultation. 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 Triplett at [facility]. -Right hip wound infection with OM of R hip, completed treatment with antibiotics. -Wound dehiscence, s/p repeat debridement at [facility] on 11/03/2018. -Diabetes -Chronic diastolic CHF -Dysphagia with GT -Anemia of chronic disease -Failure to thrive, Dr. Prieto is following in palliative care consultation. Further recommendations based on clinical course. Plan of care discussed with Dr. Shannon Result Diagram: 12/11/18 0552 12/11/18 0552 Results 24hrs Laboratory Tests Test 12/12/18 00:41 12/12/18 06:11 12/12/18 11:58 Bedside Glucose 132 142 126 Vancomycin Level Trough 21.2 *H Exam/Review of Systems Exam Vitals Vital Signs Date Temp Pulse Resp B/P (MAP) Pulse Ox O2 O2 Flow FiO2 Time Delivery Rate 12/12/18 81 20 98 Aerosol 10.0 40 17:06 T Tube 12/12/18 102.0 16:18 12/12/18 97/50 (66) 15:41 Intake and Output 12/11/18 12/11/18 12/12/18 1515:00 23:00 07:00 IntakeIntake Total 1280 ml 880 ml 300 ml OutputOutput Total 800 ml 1100 ml BalanceBalance 480 ml -220 ml 300 ml Exam Constitutional: non-verbal, frail Neck: other (Tracheostomy) Respiratory: diminished breath sounds Cardiovascular: regular rate and rhythm Gastrointestinal: soft, non-tender, other (G-tube) Extremities: other (Contracted) Neurological: unresponsive Skin: other (Sacral and right hip wounds) Results Results 24hrs Laboratory Tests Test 12/12/18 00:41 12/12/18 06:11 12/12/18 11:58 Bedside Glucose 132 142 126 Vancomycin Level Trough 21.2 *H Medications Medication Current Medications IV Flush (NS 10 ml) 10 ml Q8 IV Last administered on 12/12/18 14:50; Admin Dose 10 ML; Start 11/26/18 at 22:00 Ascorbic Acid (Vitamin C) 500 mg DAILY GTB Last administered on 12/12/18 09:48; Admin Dose 500 MG; Start 11/27/18 at 09:00 Baclofen (Lioresal) 20 mg TID GTB Last administered on 12/12/18 14:49; Admin Dose 20 MG; Start 11/26/18 at 21:00 Cholecalciferol (Vitamin D) 2,000 unit DAILY GTB Last administered on 12/12/18 09:48; Admin Dose 2,000 UNIT; Start 11/27/18 at 09:00 Cyanocobalamin (Vitamin B12) 1,000 mcg DAILY GTB Last administered on 12/12/18at 11:56; Admin Dose 1,000 MCG; Start 11/27/18 at 09:00 Miscellaneous Information 1 ea NOTE XX ; Start 11/26/18 at 18:30 Glucose (Glutose) 15 gm Q15M PRN PO DECREASED GLUCOSE; Start 11/26/18 at 18:30 Glucose (Glutose) 22.5 gm Q15M PRN PO DECREASED GLUCOSE; Start 11/26/18 at 18:30 Dextrose (D50w Syringe) 25 ml Q15M PRN IV DECREASED GLUCOSE; Start 11/26/18 at 18:30 Dextrose (D50w Syringe) 50 ml Q15M PRN IV DECREASED GLUCOSE; Start 11/26/18 at 18:30 Glucagon (Glucagen) 1 mg Q15M PRN IM DECREASED GLUCOSE; Start 11/26/18 at 18:30 Glucose (Glutose) 15 gm Q15M PRN BUCCAL DECREASED GLUCOSE; Start 11/26/18 at 18:30 Diagnostic Test (Pha) (Accu-Chek) 1 ea 02 XX Last administered on 12/11/18 01:49; Admin Dose 1 EA; Start 11/27/18 at 02:00 Collagenase (Santyl) 1 applic PRN PRN TOP .WOUND; Start 11/27/18 at 09:00 Lorazepam (Ativan) 1 mg Q2H PRN IV SEIZURES Last administered on 11/29/18 14:39; Admin Dose 1 MG; Start 11/27/18 at 18:00 Aspirin (Aspirin) 81 mg DAILY GTB Last administered on 12/12/18 09:48; Admin Dose 81 MG; Start 11/29/18 at 10:00 Levetiracetam 100 ml @ 400 mls/hr Q12 IVPB Last administered on 12/12/18 09:48; Admin Dose 400 MLS/HR; Start 11/29/18 at 21:00 Acetaminophen (Tylenol Liquid) 650 mg Q4H PRN GTB MILD PAIN(1-3)OR ELEVATED TEMP Last administered on 12/12/18 16:18; Admin Dose 650 MG; Start 12/03/18 at 02:00 Sodium Hypochlorite (Dakin'S (Dilute 40)) 1 applic BID IRR Last administered on 12/12/18 11:56; Admin Dose 1 APPLIC; Start 12/03/18 at 11:24 Vancomycin HCl (Vanco Iv Per Pharmacy) VANCOMYCIN PER PHARMACY PER PROTOCOL XX ; Start 12/07/18 at 23:30 Insulin Aspart (Novolog Insulin Pen) NOVOLOG *MILD* ALGORI... Q6 SC Last administered on 12/12/18 06:21; Admin Dose 1 UNIT; Start 12/09/18 at 18:00 Alteplase, Recombinant (Cathflo (Activase)) 2 mg MAY REPEAT X1 PRN CATHETER IF CATHETER REMAINS OCCULUDED Last administered on 12/10/18 16:17; Admin Dose 2 MG; Start 12/09/18 at 23:30 Albuterol/ Ipratropium (Duoneb) 3 ml Q6HWA RESP THERAPY HHN Last administered on 12/12/18at 13:13; Admin Dose 3 ML; Start 12/12/18 at 14:00 Albuterol/ Ipratropium (Duoneb) 3 ml Q4H RESP THERAPY PRN HHN SHORTNESS OF BREATH; Start 12/12/18 at 12:30 Vancomycin HCl 250 ml @ 125 mls/hr Q24H IVPB ; Start 12/13/18 at 03:00 Ceftazidime 50 ml @ 100 mls/hr Q8 IVPB ; Start 12/12/18 at 18:00 Metronidazole 100 ml @ 100 mls/hr Q8 IVPB ; Start 12/12/18 at 17:00 LUIZ BRANNON December 12, 2018 17:45
[2018-12-12] MEDS: metroNIDAZOLE 500 MG/NS (PMX) 100 ML IVPB SCH ×2 (18:10→22:48)
[2018-12-12] MEDS: CEFTAZIDIME 1GM/50 ML (PMX) 50 ML IVPB SCH ×2 (19:02→22:48)
[2018-12-13 01:28] VITALS: BP 97/55; PULSE 62; RESP 17
[2018-12-13] MEDS: ACCU-CHEK XX SCH (02:00)
[2018-12-13] MEDS: VANCOMYCIN 1 GM 250 ML IVPB SCH (02:32)
[2018-12-13] MEDS: metroNIDAZOLE 500 MG/NS (PMX) 100 ML IVPB SCH ×3 (05:17→22:53)
[2018-12-13] MEDS: INSULIN ASPART [NOVOLOG] 3 ML PEN SC SCH ×5 (06:00→23:38)
[2018-12-13] MEDS: CEFTAZIDIME 1GM/50 ML (PMX) 50 ML IVPB SCH ×3 (06:26→22:18)
[2018-12-13] MEDS: ALBUTEROL/IPRATROPIUM (NEB) 3 ML AMP HHN SCH ×3 (07:08→19:13)
[2018-12-13 08:06] VITALS: BP 102/51; PULSE 87; RESP 18
--- NOTE | 2018-12-13 08:29 | CONS ---
Assessment/Plan Assessment/Plan Assessment/Plan (Daily) Long conversation with patient's family on 12/12/2018. Patient's daughter is a spokesperson for the family although there are 2 other sisters she makes all decisions and she has power of attorney recruiter. She is to be to address our patient has supra nuclear palsy and has been becoming progressively more weak and requires total body care she is pegged and has lived with family at home periods of time. Participants in this conversation was patient's also. They have a clear understanding of her underlying medical illness, they have been seen at [facility] patient is a donor of her brain after she expires. There hopes that she has an acceptable quality of life they hope she goes back home and is able to at least communicate in some way mouthing words smiling shaking her head. She is definitely more comfortable at home with her family caregiver concerns are that she is not able to go home and to be care for to the level they were able to care for her prior to this hospitalization. Her PPS is 1. There are no pain social ethical issues at this point family members have a post at home which has not been filled out. We discussed patient's CODE STATUS. There willing to change her CODE STATUS to DO NOT RESUSCITATE possibly do not place patient back on artificial life support. Daughter has decided to speak to her 2 sisters prior to make any final decisions she is to contact me either by phone next meeting or through nursing staff. Consultation Date/Type/Reason Admit Date/Time Nov 26, 2018 at 20:42 Initial Consult Date 11/27/18 Requesting Provider: NADEEN CHO Date/Time of Note DATE: 12/13/18 TIME: 08:23 Exam/Review of Systems Exam Vitals Vital Signs Date Temp Pulse Resp B/P (MAP) Pulse Ox O2 O2 Flow FiO2 Time Delivery Rate 12/13/18 97.8 87 18 102/51 93 08:06 (68) 12/13/18 Aerosol 5.0 28 07:09 T Tube Intake and Output 12/12/18 12/12/18 12/13/18 1515:00 23:00 07:00 IntakeIntake Total 100 ml 300 ml 450 ml OutputOutput Total 150 ml 1000 ml BalanceBalance -50 ml -700 ml 450 ml Results Result Diagram: 12/13/18 0514 12/13/18 0514 Results 24hrs Laboratory Tests Test 12/12/18 11:58 12/12/18 18:22 12/13/18 00:25 12/13/18 05:14 Bedside Glucose 126 160 138 Vancomycin Level 21.2 *H Trough White Blood Count 8.2 # Red Blood Count 3.55 L Hemoglobin 9.1 L Hematocrit 29.7 L Mean Corpuscular 83.7 Volume Mean Corpuscular 25.6 L Hemoglobin Mean Corpuscular 30.6 L Hemoglobin Concen t Red Cell 17.7 H Distribution Width Platelet Count 368 Mean Platelet 10.4 Volume Immature 0.400 Granulocytes % Neutrophils % 75.7 Lymphocytes % 15.3 Monocytes % 4.8 Eosinophils % 2.7 Basophils % 1.1 Nucleated Red 0.0 Blood Cells % Immature 0.030 Granulocytes # Neutrophils # 6.2 Lymphocytes # 1.3 Monocytes # 0.4 Eosinophils # 0.2 Basophils # 0.1 Nucleated Red 0.0 Blood Cells # Sodium Level 140 Potassium Level 5.0 Chloride Level 106 Carbon Dioxide 28 Level Anion Gap 6 Blood Urea 27 H Nitrogen Creatinine 0.35 L Est Glomerular Filtrat Rate mL/min Glucose Level 155 Lactic Acid Level 1.3 Calcium Level 9.5 Procalcitonin 2.43 H Test 12/13/18 05:27 12/13/18 06:24 Urine Color YELLOW Urine Clarity SLIGHTLY CLOUDY A Urine pH 5.0 Urine Specific 1.018 Dexter Urine Ketones NEGATIVE Urine Nitrite NEGATIVE Urine Bilirubin NEGATIVE Urine NEGATIVE Urobilinogen Urine Leukocyte 1+ H Esterase Urine Microscopic 5 RBC Urine Microscopic 44 H WBC Urine Bacteria FEW A Urine Hemoglobin NEGATIVE Urine Glucose NEGATIVE Urine Total NEGATIVE Protein Bedside Glucose 135 Medications Medication Current Medications IV Flush (NS 10 ml) 10 ml Q8 IV Last administered on 12/13/18 05:17; Admin Dose 10 ML; Start 11/26/18 at 22:00 Ascorbic Acid (Vitamin C) 500 mg DAILY GTB Last administered on 12/12/18 09:48; Admin Dose 500 MG; Start 11/27/18 at 09:00 Baclofen (Lioresal) 20 mg TID GTB Last administered on 12/12/18 21:59; Admin Dose 20 MG; Start 11/26/18 at 21:00 Cholecalciferol (Vitamin D) 2,000 unit DAILY GTB Last administered on 12/12/18 09:48; Admin Dose 2,000 UNIT; Start 11/27/18 at 09:00 Cyanocobalamin (Vitamin B12) 1,000 mcg DAILY GTB Last administered on 12/12/18at 11:56; Admin Dose 1,000 MCG; Start 11/27/18 at 09:00 Miscellaneous Information 1 ea NOTE XX ; Start 11/26/18 at 18:30 Glucose (Glutose) 15 gm Q15M PRN PO DECREASED GLUCOSE; Start 11/26/18 at 18:30 Glucose (Glutose) 22.5 gm Q15M PRN PO DECREASED GLUCOSE; Start 11/26/18 at 18:30 Dextrose (D50w Syringe) 25 ml Q15M PRN IV DECREASED GLUCOSE; Start 11/26/18 at 18:30 Dextrose (D50w Syringe) 50 ml Q15M PRN IV DECREASED GLUCOSE; Start 11/26/18 at 18:30 Glucagon (Glucagen) 1 mg Q15M PRN IM DECREASED GLUCOSE; Start 11/26/18 at 18:30 Glucose (Glutose) 15 gm Q15M PRN BUCCAL DECREASED GLUCOSE; Start 11/26/18 at 18:30 Diagnostic Test (Pha) (Accu-Chek) 1 ea 02 XX Last administered on 12/11/18at 01:49; Admin Dose 1 EA; Start 11/27/18 at 02:00 Collagenase (Santyl) 1 applic PRN PRN TOP .WOUND; Start 11/27/18 at 09:00 Lorazepam (Ativan) 1 mg Q2H PRN IV SEIZURES Last administered on 11/29/18at 14:39; Admin Dose 1 MG; Start 11/27/18 at 18:00 Aspirin (Aspirin) 81 mg DAILY GTB Last administered on 12/12/18at 09:48; Admin Dose 81 MG; Start 11/29/18 at 10:00 Levetiracetam 100 ml @ 400 mls/hr Q12 IVPB Last administered on 12/12/18at 22 :00; Admin Dose 400 MLS/HR; Start 11/29/18 at 21:00 Acetaminophen (Tylenol Liquid) 650 mg Q4H PRN GTB MILD PAIN(1-3)OR ELEVATED TEMP Last administered on 12/12/18at 16:18; Admin Dose 650 MG; Start 12/03/18 at 02:00 Sodium Hypochlorite (Dakin'S (Dilute )) 1 applic BID IRR Last administered on 12/12/18 21:59; Admin Dose 1 APPLIC; Start 12/03/18 at 11:24 Vancomycin HCl (Vanco Iv Per Pharmacy) VANCOMYCIN PER PHARMACY PER PROTOCOL XX ; Start 12/07/18 at 23:30 Insulin Aspart (Novolog Insulin Pen) NOVOLOG *MILD* ALGORI... Q6 SC Last administered on 12/12/18 18:27; Admin Dose 1 UNIT; Start 12/09/18 at 18:00 Alteplase, Recombinant (Cathflo (Activase)) 2 mg MAY REPEAT X1 PRN CATHETER IF CATHETER REMAINS OCCULUDED Last administered on 12/10/18 16:17; Admin Dose 2 MG; Start 12/09/18 at 23:30 Albuterol/ Ipratropium (Duoneb) 3 ml Q6HWA RESP THERAPY HHN Last administered on 12/13/18 07:08; Admin Dose 3 ML; Start 12/12/18 at 14:00 Albuterol/ Ipratropium (Duoneb) 3 ml Q4H RESP THERAPY PRN HHN SHORTNESS OF BREATH; Start 12/12/18 at 12:30 Vancomycin HCl 250 ml @ 125 mls/hr Q24H IVPB Last administered on 12/13/18 02:32; Admin Dose 125 MLS/HR; Start 12/13/18 at 03:00 Ceftazidime 50 ml @ 100 mls/hr Q8 IVPB Last administered on 12/13/18 06:26; Admin Dose 100 MLS/HR; Start 12/12/18 at 18:00 Metronidazole 100 ml @ 100 mls/hr Q8 IVPB Last administered on 12/13/18at 05:17; Admin Dose 100 MLS/HR; Start 12/12/18 at 17:00 GRACE SMITH December 13, 2018 08:29
[2018-12-13] MEDS: ASCORBIC ACID 500 MG TAB GTB SCH (09:05)
[2018-12-13] MEDS: CHOLECALCIFEROL 2,000 UNIT CAP GTB SCH (09:05)
[2018-12-13] MEDS: CYANOCOBALAMIN 500 MCG TAB GTB SCH (09:05)
[2018-12-13] MEDS: BACLOFEN 10 MG TAB GTB SCH ×3 (09:05→21:52)
[2018-12-13] MEDS: LEVETIRACETAM 1000 MG (PMX) 100 ML IVPB SCH ×2 (09:05→21:52)
[2018-12-13] MEDS: ASPIRIN 81 MG TAB GTB SCH (09:06)
[2018-12-13] MEDS: SODIUM HYPOCHLORITE (1/40) 1 LITER BTL IRR SCH ×2 (09:07→21:53)
[2018-12-13] MEDS: BALSAM PERU/CASTOR OIL 60 GM TUBE TOP SCH (09:07)
[2018-12-13] MEDS: COLLAGENASE 5 GM (UD JAR) TOP SCH (11:43)
--- NOTE | 2018-12-13 11:45 | CONS ---
Consult Date/Type/Reason Admit Date/Time Nov 26, 2018 at 20:42 Initial Consult Date 11/27/18 Type of Consultation: Pulm Requesting Provider: NADEEN CHO Date/Time of Note DATE: 12/13/18 TIME: 11:44 Subjective NO acute events- pt stable overall - no obvious CP. No F/C/N/V per nurse Objective Vitals Vital Signs Date Temp Pulse Resp B/P (MAP) Pulse Ox O2 O2 Flow FiO2 Time Delivery Rate 12/13/18 5.0 08:30 12/13/18 97.8 87 18 102/51 93 08:06 (68) 12/13/18 Aerosol 28 07:09 T Tube Intake and Output 12/12/18 12/12/18 12/13/18 1515:00 23:00 07:00 IntakeIntake Total 100 ml 300 ml 450 ml OutputOutput Total 150 ml 1000 ml BalanceBalance -50 ml -700 ml 450 ml Exam General: WN/WD/NAD, AOx HEENT: Unicetric/atraumatic/EOMI (does not follow commands) NECK: JVD elevated, no thyromegaly Lymph: no lymphadenopathy HEART: regular with no S3, II/ systolic murmur at apex LUNGS: Coarse sounds ABD: soft, NT, ND, +BS : Intact Neuro: constructed SKIN: chronic changes EXT: trace edema Results/Medications Result Diagram: 12/13/1851312/13/1814 Results 24 hrs Laboratory Tests Test 12/12/18 11:58 12/12/18 18:22 12/13/18 00:25 12/13/18 05:14 Bedside Glucose 126 160 138 Vancomycin Level 21.2 *H Trough White Blood Count 8.2 # Red Blood Count 3.55 L Hemoglobin 9.1 L Hematocrit 29.7 L Mean Corpuscular 83.7 Volume Mean Corpuscular 25.6 L Hemoglobin Mean Corpuscular 30.6 L Hemoglobin Concen t Red Cell 17.7 H Distribution Width Platelet Count 368 Mean Platelet 10.4 Volume Immature 0.400 Granulocytes % Neutrophils % 75.7 Lymphocytes % 15.3 Monocytes % 4.8 Eosinophils % 2.7 Basophils % 1.1 Nucleated Red 0.0 Blood Cells % Immature 0.030 Granulocytes # Neutrophils # 6.2 Lymphocytes # 1.3 Monocytes # 0.4 Eosinophils # 0.2 Basophils # 0.1 Nucleated Red 0.0 Blood Cells # Sodium Level 140 Potassium Level 5.0 Chloride Level 106 Carbon Dioxide 28 Level Anion Gap 6 Blood Urea 27 H Nitrogen Creatinine 0.35 L Est Glomerular Filtrat Rate mL/min Glucose Level 155 Lactic Acid Level 1.3 Calcium Level 9.5 Procalcitonin 2.43 H Test 12/13/18 05:27 12/13/18 06:24 Urine Color YELLOW Urine Clarity SLIGHTLY CLOUDY A Urine pH 5.0 Urine Specific 1.018 [place] Urine Ketones NEGATIVE Urine Nitrite NEGATIVE Urine Bilirubin NEGATIVE Urine NEGATIVE Urobilinogen Urine Leukocyte 1+ H Esterase Urine Microscopic 5 RBC Urine Microscopic 44 H WBC Urine Bacteria FEW A Urine Hemoglobin NEGATIVE Urine Glucose NEGATIVE Urine Total NEGATIVE Protein Bedside Glucose 135 Home Meds Reported Medications Ondansetron Hcl* (Ondansetron Hcl*) 4 Mg Tablet, 4 MG PO Q6H PRN for n/v, TAB 11/26/18 Ascorbic Acid* (Vitamin C*) 500 Mg Capsule.sa, 500 MG GTB DAILY, CAP 11/26/18 Acetaminophen* (Acetaminophen*) 325 Mg Tablet, 650 MG GTB Q4H PRN for PAIN AND OR ELEVATED TEMP, #30 TAB 11/26/18 Sertraline Hcl* (Sertraline Hcl*) 50 Mg Tablet, 50 MG GTB DAILY, #30 TAB 11/26/18 Protein Supplement (Promod) 946 Ml Liquid, 30 ML GTB for supplement 11/26/18 Lansoprazole* (Lansoprazole*) 30 Mg Capsule.dr, 30 MG GTB BID, CAP 11/26/18 Hydrocodone/Acetaminophen ([place] 5-325 Tablet) 1 Each Tablet, 1 EACH GTB Q4H PRN for PAIN, TAB 11/26/18 Polyethylene Glycol* (Miralax*) 17 Gm Powd.pack, 17 GM GTB BID, #60 PACKET 11/26/18 Metoprolol Tartrate* (Lopressor*) 25 Mg Tab, 25 MG GTB BID, #60 TAB 11/26/18 Lisinopril* (Lisinopril*) 5 Mg Tablet, 5 MG GTB DAILY, #30 TAB 11/26/18 Insulin Aspart* (Novolog Insulin Pen*) 100 Unit/Ml Soln, 0 SC .SLIDING SCALE AC, EA INJECT PER SLIDING SCALE; IF 70-150=0unit; 151-200= 2units; 201-250=4units; 251-300=6units; 301-350=8units; 351-400=10units and Call MD, Subcutaneously before meals and at bedtime fo DM. 11/26/18 Insulin Glargine* (Lantus*) 100 Unit/Ml Soln, 5 UNIT SC QHS, #1 VIAL [id number] SQ AT BEDTIME FOR TYPE 2DIABETES MELLITUS WITHOUT COMPLICATIONS 11/26/18 Levetiracetam* (Keppra*) 500 Mg/5 Ml Solution, 100 MG GTB BID for SEIZURE for 30 Days, BOTTLE 11/26/18 Ipratropium-Albuterol (Ipratropium-Albuterol) 0.5-3 Mg/3 Ml Ampul.neb, 3 ML INHALATION Q6, #30 VIAL 11/26/18 Ferrous Sulfate* (Ferrous Sulfate*) 220 Mg/5 Ml Solution, 330 MG PO BID, ML 11/26/18 Epoetin Haroon (Epogen) 10,000 Units/Ml Soln, 21170 UNITS SC QWED for ANEMIA, VIAL 11/26/18 Cyanocobalamin* (Vitamin B-12*) 1,000 Mcg Tablet.sa, 1000 MCG GTB DAILY, TAB 11/26/18 Clonazepam* (Clonazepam*) 0.5 Mg Tablet, 0.5 MG GTB BID, TAB 11/26/18 Cholecalciferol (Vitamin D3) (VITAMIN D-3) 2,000 Unit Capsule, 2000 UNIT GTB DAILY, CAP 11/26/18 Baclofen* (Baclofen*) 10 Mg Tablet, 20 MG GTB TID for MUSCLE SPASM, TAB 11/26/18 Aspirin* (Aspirin* EC) 81 Mg Tablet.dr, 81 MG GTB DAILY, TAB 11/26/18 Amiodarone Hcl* (Amiodarone Hcl*) 200 Mg Tablet, 200 MG GTB BID for ARRHYTMIA, #60 TAB 11/26/18 Zolpidem Tartrate* (Zolpidem Tartrate*) 5 Mg Tablet, 5 MG GTB QHS PRN for INSOMNIA, #30 TAB 11/26/18 Acidophilus-Bulgaricus* (BD Lactinex*) 1 Pkt Packet, 1 PKT GTB BID, PACKET 11/26/18 Zinc Sulfate* (Zinc Sulfate*) 220 Mg Tablet, 220 MG GTB DAILY for 30 Days, #30 TAKE 1 CAPSULE VIA G-TUBE EVERY DAY 11/26/18 Estrogens Conjugated* (Premarin*) 0.45 Mg Tablet, 1.5 MG PO DAILY 02/18/13 Medications Current Medications IV Flush (NS 10 ml) 10 ml Q8 IV Last administered on 12/13/18 05:17; Admin Dose 10 ML; Start 11/26/18 at 22:00 Ascorbic Acid (Vitamin C) 500 mg DAILY GTB Last administered on 12/13/18 09:05; Admin Dose 500 MG; Start 11/27/18 at 09:00 Baclofen (Lioresal) 20 mg TID GTB Last administered on 12/13/18 09:05; Admin Dose 20 MG; Start 11/26/18 at 21:00 Cholecalciferol (Vitamin D) 2,000 unit DAILY GTB Last administered on 12/13/18 09:05; Admin Dose 2,000 UNIT; Start 11/27/18 at 09:00 Cyanocobalamin (Vitamin B12) 1,000 mcg DAILY GTB Last administered on 12/13/18 09:05; Admin Dose 1,000 MCG; Start 11/27/18 at 09:00 Miscellaneous Information 1 ea NOTE XX ; Start 11/26/18 at 18:30 Glucose (Glutose) 15 gm Q15M PRN PO DECREASED GLUCOSE; Start 11/26/18 at 18:30 Glucose (Glutose) 22.5 gm Q15M PRN PO DECREASED GLUCOSE; Start 11/26/18 at 18:30 Dextrose (D50w Syringe) 25 ml Q15M PRN IV DECREASED GLUCOSE; Start 11/26/18 at 18:30 Dextrose (D50w Syringe) 50 ml Q15M PRN IV DECREASED GLUCOSE; Start 11/26/18 at 18:30 Glucagon (Glucagen) 1 mg Q15M PRN IM DECREASED GLUCOSE; Start 11/26/18 at 18:30 Glucose (Glutose) 15 gm Q15M PRN BUCCAL DECREASED GLUCOSE; Start 11/26/18 at 18:30 Diagnostic Test (Pha) (Accu-Chek) 1 ea 02 XX Last administered on 12/11/18at 01:49; Admin Dose 1 EA; Start 11/27/18 at 02:00 Lorazepam (Ativan) 1 mg Q2H PRN IV SEIZURES Last administered on 11/29/18 14:39; Admin Dose 1 MG; Start 11/27/18 at 18:00 Aspirin (Aspirin) 81 mg DAILY GTB Last administered on 12/13/18 09:06; Admin Dose 81 MG; Start 11/29/18 at 10:00 Levetiracetam 100 ml @ 400 mls/hr Q12 IVPB Last administered on 12/13/18 09:05; Admin Dose 400 MLS/HR; Start 11/29/18 at 21:00 Acetaminophen (Tylenol Liquid) 650 mg Q4H PRN GTB MILD PAIN(1-3)OR ELEVATED TEMP Last administered on 12/12/18 16:18; Admin Dose 650 MG; Start 12/03/18 at 02:00 Sodium Hypochlorite (Dakin'S (Dilute )) 1 applic BID IRR Last administered on 12/13/18 09:07; Admin Dose 1 APPLIC; Start 12/03/18 at 11:24 Vancomycin HCl (Vanco Iv Per Pharmacy) VANCOMYCIN PER PHARMACY PER PROTOCOL XX ; Start 12/07/18 at 23:30 Insulin Aspart (Novolog Insulin Pen) NOVOLOG *MILD* ALGORI... Q6 SC Last administered on 12/12/18 18:27; Admin Dose 1 UNIT; Start 12/09/18 at 18:00 Alteplase, Recombinant (Cathflo (Activase)) 2 mg MAY REPEAT X1 PRN CATHETER IF CATHETER REMAINS OCCULUDED Last administered on 12/10/18 16:17; Admin Dose 2 MG; Start 12/09/18 at 23:30 Albuterol/ Ipratropium (Duoneb) 3 ml Q6HWA RESP THERAPY HHN Last administered on 12/13/18 07:08; Admin Dose 3 ML; Start 12/12/18 at 14:00 Albuterol/ Ipratropium (Duoneb) 3 ml Q4H RESP THERAPY PRN HHN SHORTNESS OF BREATH; Start 12/12/18 at 12:30 Vancomycin HCl 250 ml @ 125 mls/hr Q24H IVPB Last administered on 12/13/18 02:32; Admin Dose 125 MLS/HR; Start 12/13/18 at 03:00 Ceftazidime 50 ml @ 100 mls/hr Q8 IVPB Last administered on 12/13/18at 06:26; Admin Dose 100 MLS/HR; Start 12/12/18 at 18:00 Metronidazole 100 ml @ 100 mls/hr Q8 IVPB Last administered on 12/13/18at 05:17; Admin Dose 100 MLS/HR; Start 12/12/18 at 17:00 Collagenase (Santyl) 1 applic DAILY TOP ; Start 12/13/18 at 10:30 Assessment/Plan Hospital Course (Demo Recall) 1. Atrial fibrillation/atrial flutter with rapid ventricular response - now in SR - treated - will follow. Remains in sinus now. RATE CONTROLLED. 2. Hypotension/shock state, likely septic - better now. .BP well controlled now. In good range now. 3. History of cardiomyopathy with mildly depressed left ventricular ejection fraction approximately 40% to 45%. Keep euvolemic. Chronic. 4. History of congestive heart failure, systolic, chronic. 5. Possible pneumonia - on meds, con't anti-bx. NO new fevers. 6. Sepsis- treated, better now -no fevers. 7. Leukocytosis. 8. Anemia requiring transfusions- no active bleed now. Treated. 9. Hypernatremia. 10. Coagulopathy. 11. Urinary tract infection. ZAHIRA RAJAN MD December 13, 2018 11:45
--- NOTE | 2018-12-13 13:39 | CONS ---
Assessment/Plan Assessment/Plan Hospital Course (Demo Recall) Case will be coordinated with [employer] C[employer]TING MACHINE OPERATOR AGNES HERNANDEZ via [employer] texting and phone call. I reviewed the emr as well and will be directing care shortly. 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) Home Meds Reported Medications Ondansetron Hcl* (Ondansetron Hcl*) 4 Mg Tablet, 4 MG PO Q6H PRN for n/v, TAB 11/26/18 Ascorbic Acid* (Vitamin C*) 500 Mg Capsule.sa, 500 MG GTB DAILY, CAP 11/26/18 Acetaminophen* (Acetaminophen*) 325 Mg Tablet, 650 MG GTB Q4H PRN for PAIN AND OR ELEVATED TEMP, #30 TAB 11/26/18 Sertraline Hcl* (Sertraline Hcl*) 50 Mg Tablet, 50 MG GTB DAILY, #30 TAB 11/26/18 Protein Supplement (Promod) 946 Ml Liquid, 30 ML GTB for supplement 11/26/18 Lansoprazole* (Lansoprazole*) 30 Mg Capsule.dr, 30 MG GTB BID, CAP 11/26/18 Hydrocodone/Acetaminophen ([place] 5-325 Tablet) 1 Each Tablet, 1 EACH GTB Q4H PRN for PAIN, TAB 11/26/18 Polyethylene Glycol* (Miralax*) 17 Gm Powd.pack, 17 GM GTB BID, #60 PACKET 11/26/18 Metoprolol Tartrate* (Lopressor*) 25 Mg Tab, 25 MG GTB BID, #60 TAB 11/26/18 Lisinopril* (Lisinopril*) 5 Mg Tablet, 5 MG GTB DAILY, #30 TAB 11/26/18 Insulin Aspart* (Novolog Insulin Pen*) 100 Unit/Ml Soln, 0 SC .SLIDING SCALE AC, EA INJECT PER SLIDING SCALE; IF 70-150=0unit; 151-200= 2units; 201-250=4units; 251-300=6units; 301-350=8units; 351-400=10units and Call , Subcutaneously before meals and at bedtime fo DM. 11/26/18 Insulin Glargine* (Lantus*) 100 Unit/Ml Soln, 5 UNIT SC QHS, #1 VIAL [id number] SQ AT BEDTIME FOR TYPE 2DIABETES MELLITUS WITHOUT COMPLICATIONS 11/26/18 Levetiracetam* (Keppra*) 500 Mg/5 Ml Solution, 100 MG GTB BID for SEIZURE for 30 Days, BOTTLE 11/26/18 Ipratropium-Albuterol (Ipratropium-Albuterol) 0.5-3 Mg/3 Ml Ampul.neb, 3 ML INHALATION Q6, #30 VIAL 11/26/18 Ferrous Sulfate* (Ferrous Sulfate*) 220 Mg/5 Ml Solution, 330 MG PO BID, ML 11/26/18 Epoetin Haroon (Epogen) 10,000 Units/Ml Soln, 48280 UNITS SC QWED for ANEMIA, VIAL 11/26/18 Cyanocobalamin* (Vitamin B-12*) 1,000 Mcg Tablet.sa, 1000 MCG GTB DAILY, TAB 11/26/18 Clonazepam* (Clonazepam*) 0.5 Mg Tablet, 0.5 MG GTB BID, TAB 11/26/18 Cholecalciferol (Vitamin D3) (VITAMIN D-3) 2,000 Unit Capsule, 2000 UNIT GTB DAILY, CAP 11/26/18 Baclofen* (Baclofen*) 10 Mg Tablet, 20 MG GTB TID for MUSCLE SPASM, TAB 11/26/18 Aspirin* (Aspirin* EC) 81 Mg Tablet.dr, 81 MG GTB DAILY, TAB 11/26/18 Amiodarone Hcl* (Amiodarone Hcl*) 200 Mg Tablet, 200 MG GTB BID for ARRHYTMIA, #60 TAB 11/26/18 Zolpidem Tartrate* (Zolpidem Tartrate*) 5 Mg Tablet, 5 MG GTB QHS PRN for INSOMNIA, #30 TAB 11/26/18 Acidophilus-Bulgaricus* (BD Lactinex*) 1 Pkt Packet, 1 PKT GTB BID, PACKET 11/26/18 Zinc Sulfate* (Zinc Sulfate*) 220 Mg Tablet, 220 MG GTB DAILY for 30 Days, #30 TAKE 1 CAPSULE VIA G-TUBE EVERY DAY 11/26/18 Estrogens Conjugated* (Premarin*) 0.45 Mg Tablet, 1.5 MG PO DAILY 02/18/13 Medications Current Medications IV Flush (NS 10 ml) 10 ml Q8 IV Last administered on 12/13/18 05:17; Admin Dose 10 ML; Start 11/26/18 at 22:00 Ascorbic Acid (Vitamin C) 500 mg DAILY GTB Last administered on 12/13/18 09:05; Admin Dose 500 MG; Start 11/27/18 at 09:00 Baclofen (Lioresal) 20 mg TID GTB Last administered on 12/13/18 09:05; Admin Dose 20 MG; Start 11/26/18 at 21:00 Cholecalciferol (Vitamin D) 2,000 unit DAILY GTB Last administered on 12/13/18 09:05; Admin Dose 2,000 UNIT; Start 11/27/18 at 09:00 Cyanocobalamin (Vitamin B12) 1,000 mcg DAILY GTB Last administered on 12/13/18 09:05; Admin Dose 1,000 MCG; Start 11/27/18 at 09:00 Miscellaneous Information 1 ea NOTE XX ; Start 11/26/18 at 18:30 Glucose (Glutose) 15 gm Q15M PRN PO DECREASED GLUCOSE; Start 11/26/18 at 18:30 Glucose (Glutose) 22.5 gm Q15M PRN PO DECREASED GLUCOSE; Start 11/26/18 at 18:30 Dextrose (D50w Syringe) 25 ml Q15M PRN IV DECREASED GLUCOSE; Start 11/26/18 at 18:30 Dextrose (D50w Syringe) 50 ml Q15M PRN IV DECREASED GLUCOSE; Start 11/26/18 at 18:30 Glucagon (Glucagen) 1 mg Q15M PRN IM DECREASED GLUCOSE; Start 11/26/18 at 18:30 Glucose (Glutose) 15 gm Q15M PRN BUCCAL DECREASED GLUCOSE; Start 11/26/18 at 18:30 Diagnostic Test (Pha) (Accu-Chek) 1 ea 02 XX Last administered on 12/11/18at 01:49; Admin Dose 1 EA; Start 11/27/18 at 02:00 Lorazepam (Ativan) 1 mg Q2H PRN IV SEIZURES Last administered on 11/29/18at 14:39; Admin Dose 1 MG; Start 11/27/18 at 18:00 Aspirin (Aspirin) 81 mg DAILY GTB Last administered on 12/13/18 09:06; Admin Dose 81 MG; Start 11/29/18 at 10:00 Levetiracetam 100 ml @ 400 mls/hr Q12 IVPB Last administered on 12/13/18 09:05; Admin Dose 400 MLS/HR; Start 11/29/18 at 21:00 Acetaminophen (Tylenol Liquid) 650 mg Q4H PRN GTB MILD PAIN(1-3)OR ELEVATED TEMP Last administered on 12/12/18 16:18; Admin Dose 650 MG; Start 12/03/18 at 02:00 Sodium Hypochlorite (Dakin'S (Dilute )) 1 applic BID IRR Last administered on 12/13/18 09:07; Admin Dose 1 APPLIC; Start 12/03/18 at 11:24 Vancomycin HCl (Vanco Iv Per Pharmacy) VANCOMYCIN PER PHARMACY PER PROTOCOL XX ; Start 12/07/18 at 23:30 Insulin Aspart (Novolog Insulin Pen) NOVOLOG *MILD* ALGORI... Q6 SC Last administered on 12/12/18 18:27; Admin Dose 1 UNIT; Start 12/09/18 at 18:00 Alteplase, Recombinant (Cathflo (Activase)) 2 mg MAY REPEAT X1 PRN CATHETER IF CATHETER REMAINS OCCULUDED Last administered on 12/10/18 16:17; Admin Dose 2 MG; Start 12/09/18 at 23:30 Albuterol/ Ipratropium (Duoneb) 3 ml Q6HWA RESP THERAPY HHN Last administered on 12/13/18 13:00; Admin Dose 3 ML; Start 12/12/18 at 14:00 Albuterol/ Ipratropium (Duoneb) 3 ml Q4H RESP THERAPY PRN HHN SHORTNESS OF BREATH; Start 12/12/18 at 12:30 Vancomycin HCl 250 ml @ 125 mls/hr Q24H IVPB Last administered on 12/13/18 02:32; Admin Dose 125 MLS/HR; Start 12/13/18 at 03:00 Ceftazidime 50 ml @ 100 mls/hr Q8 IVPB Last administered on 12/13/18 06:26; Admin Dose 100 MLS/HR; Start 12/12/18 at 18:00 Metronidazole 100 ml @ 100 mls/hr Q8 IVPB Last administered on 12/13/18at 05:17; Admin Dose 100 MLS/HR; Start 12/12/18 at 17:00 Collagenase (Santyl) 1 applic DAILY TOP Last administered on 12/13/18at 11:43; Admin Dose 1 APPLIC; Start 12/13/18 at 10:30 Allergies: Coded Allergies: Penicillins (Verified Allergy, Unknown, 07/06/13) morphine (Verified Adverse Reaction, Mild, "LOOPY", 10/08/18) Uncoded Allergies: PLASTIC TAPE (Allergy, Unknown, 04/01/07) Past Surgical History Past Surgical Hx: other (I&D of R hip) Social History Smoking Status: Unknown if ever smoked Exam/Review of Systems Exam Vitals Vital Signs Date Temp Pulse Resp B/P (MAP) Pulse Ox O2 O2 Flow FiO2 Time Delivery Rate 12/13/18 97 5.0 28 13:05 12/13/18 72 18 Aerosol 13:02 T Tube 12/13/18 97.8 102/51 08:06 (68) Intake and Output 12/12/18 12/12/18 12/13/18 1414:59 22:59 06:59 IntakeIntake Total 100 ml 300 ml 450 ml OutputOutput Total 150 ml 1000 ml BalanceBalance -50 ml -700 ml 450 ml Results Result Diagram: 12/13/1851312/13/1814 Results 24hrs Laboratory Tests Test 12/12/18 18:22 12/13/18 00:25 12/13/18 05:14 12/13/18 05:27 Bedside Glucose 160 138 White Blood Count 8.2 # Red Blood Count 3.55 L Hemoglobin 9.1 L Hematocrit 29.7 L Mean Corpuscular 83.7 Volume Mean Corpuscular 25.6 L Hemoglobin Mean Corpuscular 30.6 L Hemoglobin Concen t Red Cell 17.7 H Distribution Width Platelet Count 368 Mean Platelet 10.4 Volume Immature 0.400 Granulocytes % Neutrophils % 75.7 Lymphocytes % 15.3 Monocytes % 4.8 Eosinophils % 2.7 Basophils % 1.1 Nucleated Red 0.0 Blood Cells % Immature 0.030 Granulocytes # Neutrophils # 6.2 Lymphocytes # 1.3 Monocytes # 0.4 Eosinophils # 0.2 Basophils # 0.1 Nucleated Red 0.0 Blood Cells # Sodium Level 140 Potassium Level 5.0 Chloride Level 106 Carbon Dioxide 28 Level Anion Gap 6 Blood Urea 27 H Nitrogen Creatinine 0.35 L Est Glomerular Filtrat Rate mL/min Glucose Level 155 Lactic Acid Level 1.3 Calcium Level 9.5 Procalcitonin 2.43 H Urine Color YELLOW Urine Clarity SLIGHTLY CLOUDY A Urine pH 5.0 Urine Specific 1.018 [place] Urine Ketones NEGATIVE Urine Nitrite NEGATIVE Urine Bilirubin NEGATIVE Urine NEGATIVE Urobilinogen Urine Leukocyte 1+ H Esterase Urine Microscopic 5 RBC Urine Microscopic 44 H WBC Urine Bacteria FEW A Urine Hemoglobin NEGATIVE Urine Glucose NEGATIVE Urine Total NEGATIVE Protein Test 12/13/18 06:24 12/13/18 11:45 Bedside Glucose 135 122 Medications Medication Current Medications IV Flush (NS 10 ml) 10 ml Q8 IV Last administered on 12/13/18 05:17; Admin Dose 10 ML; Start 11/26/18 at 22:00 Ascorbic Acid (Vitamin C) 500 mg DAILY GTB Last administered on 12/13/18 09:05; Admin Dose 500 MG; Start 11/27/18 at 09:00 Baclofen (Lioresal) 20 mg TID GTB Last administered on 12/13/18 09:05; Admin Dose 20 MG; Start 11/26/18 at 21:00 Cholecalciferol (Vitamin D) 2,000 unit DAILY GTB Last administered on 12/13/18 09:05; Admin Dose 2,000 UNIT; Start 11/27/18 at 09:00 Cyanocobalamin (Vitamin B12) 1,000 mcg DAILY GTB Last administered on 12/13/18 09:05; Admin Dose 1,000 MCG; Start 11/27/18 at 09:00 Miscellaneous Information 1 ea NOTE XX ; Start 11/26/18 at 18:30 Glucose (Glutose) 15 gm Q15M PRN PO DECREASED GLUCOSE; Start 11/26/18 at 18:30 Glucose (Glutose) 22.5 gm Q15M PRN PO DECREASED GLUCOSE; Start 11/26/18 at 18:30 Dextrose (D50w Syringe) 25 ml Q15M PRN IV DECREASED GLUCOSE; Start 11/26/18 at 18:30 Dextrose (D50w Syringe) 50 ml Q15M PRN IV DECREASED GLUCOSE; Start 11/26/18 at 18:30 Glucagon (Glucagen) 1 mg Q15M PRN IM DECREASED GLUCOSE; Start 11/26/18 at 18:30 Glucose (Glutose) 15 gm Q15M PRN BUCCAL DECREASED GLUCOSE; Start 11/26/18 at 18:30 Diagnostic Test (Pha) (Accu-Chek) 1 ea 02 XX Last administered on 12/11/18 01:49; Admin Dose 1 EA; Start 11/27/18 at 02:00 Lorazepam (Ativan) 1 mg Q2H PRN IV SEIZURES Last administered on 11/29/18 14 :39; Admin Dose 1 MG; Start 11/27/18 at 18:00 Aspirin (Aspirin) 81 mg DAILY GTB Last administered on 12/13/18 09:06; Admin Dose 81 MG; Start 11/29/18 at 10:00 Levetiracetam 100 ml @ 400 mls/hr Q12 IVPB Last administered on 12/13/18 09:05; Admin Dose 400 MLS/HR; Start 11/29/18 at 21:00 Acetaminophen (Tylenol Liquid) 650 mg Q4H PRN GTB MILD PAIN(1-3)OR ELEVATED TEMP Last administered on 12/12/18 16:18; Admin Dose 650 MG; Start 12/03/18 at 02:00 Sodium Hypochlorite (Dakin'S (Dilute )) 1 applic BID IRR Last administered on 12/13/18 09:07; Admin Dose 1 APPLIC; Start 12/03/18 at 11:24 Vancomycin HCl (Vanco Iv Per Pharmacy) VANCOMYCIN PER PHARMACY PER PROTOCOL XX ; Start 12/07/18 at 23:30 Insulin Aspart (Novolog Insulin Pen) NOVOLOG *MILD* ALGORI... Q6 SC Last administered on 12/12/18 18:27; Admin Dose 1 UNIT; Start 12/09/18 at 18:00 Alteplase, Recombinant (Cathflo (Activase)) 2 mg MAY REPEAT X1 PRN CATHETER IF CATHETER REMAINS OCCULUDED Last administered on 12/10/18 16:17; Admin Dose 2 MG; Start 12/09/18 at 23:30 Albuterol/ Ipratropium (Duoneb) 3 ml Q6HWA RESP THERAPY HHN Last administered on 12/13/18 13:00; Admin Dose 3 ML; Start 12/12/18 at 14:00 Albuterol/ Ipratropium (Duoneb) 3 ml Q4H RESP THERAPY PRN HHN SHORTNESS OF BREATH; Start 12/12/18 at 12:30 Vancomycin HCl 250 ml @ 125 mls/hr Q24H IVPB Last administered on 12/13/18at 02:32; Admin Dose 125 MLS/HR; Start 12/13/18 at 03:00 Ceftazidime 50 ml @ 100 mls/hr Q8 IVPB Last administered on 12/13/18at 06:26; Admin Dose 100 MLS/HR; Start 12/12/18 at 18:00 Metronidazole 100 ml @ 100 mls/hr Q8 IVPB Last administered on 12/13/18 05:17; Admin Dose 100 MLS/HR; Start 12/12/18 at 17:00 Collagenase (Santyl) 1 applic DAILY TOP Last administered on 12/13/18at 11:43; Admin Dose 1 APPLIC; Start 12/13/18 at 10:30 KASH MONDRAGON MD December 13, 2018 13:39
[2018-12-13 14:51] VITALS: BP 101/54; PULSE 76; RESP 17
--- NOTE | 2018-12-13 17:33 | CONS ---
[facility] Name: Brenda Willingham Unit Number: [id number] Date of : 1945 Patient Status: Admitted Inpatient Attending Doctor: Nirmal Shannon MD Edit: KASH MONDRAGON MD on 12/16/18 @ 13:04 The Bacteroides bacteremia is especially concerning for intra-abdominal infectious process such as perforation/abscess or biliary associated disease. Consider a CT scan if full aggressive care desired. d/w MANUEL Isbell on 12.13.18 and we created plan together regarding this. Assessment/Plan Assessment/Plan Hospital Course (Demo Recall) # sepsis, endovascular infection, respiratory - sepsis on 12/12/18 unknown etiology; suspect possible intra abdominal infection, blood cxs grew bacteroides fragilis - sepsis on 12/07/2018 due to bacteremia and likely wound infection. Procalcitonin was 1.96 on 12/07/2018, and so we suspect this is caused by bacterial infection; - low grade fever and leukocytosis have resolved - Bacteremia - blood cultures 12/07/18 are growing GNR - s/p septic shock due to probable UTI - s/p coag negative Staph in blood cultures on 11/26/2018, probable contaminant - colonization of the airway by pseudomonas and corynebacteria on 11/26/2018; MDR pseudomonas in trach aspirate cx from 12/08/2018 likely a colonizer - h/o sepsis due to bacteremia and pneumonia - h/o bacteremia: blood cultures grew enterococcus faecalis on 09/17/2018 secondary to R hip wound infection as its wound culture on 09/16/2018 grew E. faecalis as well - h/o recurrent acute on chronic hypoxemic respiratory failure secondary to secretion retention, mucous plugging, major left lung atelectasis, severe shunting - h/o probable aspiration pneumonia. - h/o pneumonia due to pseudomonas on 09/30/2018. s/p Levaquin (10/03/18- 10/07/2018), Meropenem (restart 09/30/2018-10/03/18, 10/12/18 - 10/19/2018) and empiric Amikacin (09/30/18-10/03/18) - H/o intubation on 09/30/2018 - H/o tracheostomy on 10/04/2018 - h/o pseudomonas in urine culture on 09/17/2018 with mild pyuria; treated with Cefepime (09/20/2018-09/25/2018) # infection of wound, OM of R hip, pressure ulcer - colonization of the wound of R hip by pseudomonas (wound culture on 10/31/2018), acinetobacter (wound culture on 11/27/2018) - h/o repeat debridement at [facility] on 11/03/[address]. [address] Pierson, her plastic surgeon at [facility], the wound appeared clean during the I&D (my conversation with him on 11/06/2018) - H/o stage sacral decubitus ulcer extending to bilateral buttocks. She reportedly had total hip dislocation and exposed femoral head. CT pelvis showed e/o OM. Pt complete IV vancomycin (09/17/2018-10/29/2018) for sacral OM associated with E. faecalis - H/o sharp excisional debridement down to and including bone of the sacrum on 08/22/2018 and 09/19/2018 - H/o excision of R hip ulcer, girdlestone resection arthroplasty and flap reconstruction 09/23/2018. The surgical pathology showed osteomyelitis of R hip bone, soft tissue cellulitis, and bony margin of excision was free of the disease - according to Dr. Pierson who performed the wound debridement, Pt needs wound care until granulation tissue builds and infection is cleared. Then he would decide if Pt should get repeat closure or not - XR of R hip on 11/09/2009 showed the remaining R femoral shaft in transverse orientation and with lateral deviation - h/o removal of devitalized/necrotic tissue by Dr. Pierson on 10/07/2018 # renal/ - funguria, recurrent; Pt completed 3 day course of fluconazole (12/04-12/06/2018). Ramires was changed on 12/04/2018. - hematuria on 11/26/2018 - h/o moderate L hydronephrosis per renal US # heme, neuro - h/o acute on chronic anemia requiring PRBC - chronic metabolic encephalopathy - supranuclear palsy # endo, cardiac - diabetes mellitus - A fib with RVR - chronic diastolic HF (EF 40-45% with grade 1 DD per 2D Echo 10/24/2018) - h/o hypertension # allergy - penicillin allergy (throat swelling) but Pt tolerates cefepime, ceftazidime, meropenem Recommendations: - Cont. Ceftazidime (12/12/18 - ) Vancomycin (restart 12/07/2018-) - Cont. Flagyl IV ( for possible intra abdominal infection in result of blood cxs +Bacteroides fragilis ) - Follow up with christina cultures - Pt completed 3 day course of fluconazole (12/04-12/06/2018). Ramires was changed on 12/04/2018 - Consider goals of care Above plan d/w via [employer]. Consultation Date/Type/Reason Admit Date/Time Nov 26, 2018 at 20:42 Initial Consult Date 11/27/18 Requesting Provider: NADEEN CHO Date/Time of Note DATE: 12/13/18 TIME: 17:33 24 HR Interval Summary Free Text/Dictation WBC 8.2 Afebrile today. Subjective hx not possible: pt non-verbal Exam/Review of Systems Exam Vitals Vital Signs Date Temp Pulse Resp B/P (MAP) Pulse Ox O2 O2 Flow FiO2 Time Delivery Rate 12/13/18 98.1 76 17 101/54 93 14:51 (70) 12/13/18 5.0 28 13:05 12/13/18 Aerosol 13:02 T Tube Intake and Output 12/12/18 12/12/18 12/13/18 1515:00 23:00 07:00 IntakeIntake Total 100 ml 300 ml 450 ml OutputOutput Total 150 ml 1000 ml BalanceBalance -50 ml -700 ml 450 ml Exam Constitutional: non-verbal, frail Psych: confusion Head: normocephalic, atraumatic Eyes: nl conjunctiva, nl lids ENMT: nl external ears & nose, nl nasal mucosa & septum, mucosa pink and moist Neck: other (trach site c/d/i) Respiratory: clear to auscultation, normal air movement, on cool aerosol Cardiovascular: regular rate and rhythm, nl pulses. S.Tachy Gastrointestinal: soft, non-tender, other (GT) Genitourinary - Female: other (FC) Musculoskeletal: other (contractured, R hip wound covered with dressing c/d/i); No swelling Extremities: No edema Neurological: lethargic, unresponsive Skin: rash or lesions (+R hip and coccyx wound covered with dressing c/d/i) Results Result Diagram: 12/13/1814 12/13/1814 Results 24hrs Laboratory Tests Test 12/12/18 18:22 12/13/18 00:25 12/13/18 05:14 12/13/18 05:27 Bedside Glucose 160 138 White Blood Count 8.2 # Red Blood Count 3.55 L Hemoglobin 9.1 L Hematocrit 29.7 L Mean Corpuscular 83.7 Volume Mean Corpuscular 25.6 L Hemoglobin Mean Corpuscular 30.6 L Hemoglobin Concen t Red Cell 17.7 H Distribution Width Platelet Count 368 Mean Platelet 10.4 Volume Immature 0.400 Granulocytes % Neutrophils % 75.7 Lymphocytes % 15.3 Monocytes % 4.8 Eosinophils % 2.7 Basophils % 1.1 Nucleated Red 0.0 Blood Cells % Immature 0.030 Granulocytes # Neutrophils # 6.2 Lymphocytes # 1.3 Monocytes # 0.4 Eosinophils # 0.2 Basophils # 0.1 Nucleated Red 0.0 Blood Cells # Sodium Level 140 Potassium Level 5.0 Chloride Level 106 Carbon Dioxide 28 Level Anion Gap 6 Blood Urea 27 H Nitrogen Creatinine 0.35 L Est Glomerular Filtrat Rate mL/min Glucose Level 155 Lactic Acid Level 1.3 Calcium Level 9.5 Procalcitonin 2.43 H Urine Color YELLOW Urine Clarity SLIGHTLY CLOUDY A Urine pH 5.0 Urine Specific 1.018 [place] Urine Ketones NEGATIVE Urine Nitrite NEGATIVE Urine Bilirubin NEGATIVE Urine NEGATIVE Urobilinogen Urine Leukocyte 1+ H Esterase Urine Microscopic 5 RBC Urine Microscopic 44 H WBC Urine Bacteria FEW A Urine Hemoglobin NEGATIVE Urine Glucose NEGATIVE Urine Total NEGATIVE Protein Test 12/13/18 06:24 12/13/18 11:45 Bedside Glucose 135 122 Imaging Imaging [place] [id number] Radiology Main Line: [phone] DIAGNOSTIC IMAGING REPORT Patient: BRENDA WILLINGHAM : 1945 Age: 73 Sex: F MR #: [id number] DOS: 12/13/18 0600 Ordering MD: AGNES HERNANDEZ NP Location: [facility] Room/Bed: [facility] PROCEDURE: XR chest. CLINICAL INDICATION: Dyspnea TECHNIQUE: A single portable view of the chest was obtained. COMPARISON: 11/03/2018 FINDINGS: Tracheostomy tube overlies the tracheal air column. Right arm PICC is removed. Diffuse interstitial and airspace opacities are identified throughout the lungs, increased since the prior examination. There is no sizable pleural effusion or pneumothorax. The patient's right hand superimposes the right costophrenic angle. The aorta is atherosclerotic and tortuous. The cardiac silhouette is within normal limits. IMPRESSION: 1. Diffuse interstitial and airspace opacities throughout the lungs are increased since the prior examination and represent pulmonary edema or multifocal infection. RPTAT: AAEE Physician Yuri Date Time Electronically viewed and signed by Physician Yuri on 12/13/2018 10:45 RF/ CC: AGNES HERNANDEZ NP [id number] Medications Medication Current Medications IV Flush (NS 10 ml) 10 ml Q8 IV Last administered on 12/13/18at 14:04; Admin Dose 10 ML; Start 11/26/18 at 22:00 Ascorbic Acid (Vitamin C) 500 mg DAILY GTB Last administered on 12/13/18 09:05; Admin Dose 500 MG; Start 11/27/18 at 09:00 Baclofen (Lioresal) 20 mg TID GTB Last administered on 12/13/18at 14:05; Admin Dose 20 MG; Start 11/26/18 at 21:00 Cholecalciferol (Vitamin D) 2,000 unit DAILY GTB Last administered on 12/13/18 09:05; Admin Dose 2,000 UNIT; Start 11/27/18 at 09:00 Cyanocobalamin (Vitamin B12) 1,000 mcg DAILY GTB Last administered on 12/13/18 09:05; Admin Dose 1,000 MCG; Start 11/27/18 at 09:00 Miscellaneous Information 1 ea NOTE XX ; Start 11/26/18 at 18:30 Glucose (Glutose) 15 gm Q15M PRN PO DECREASED GLUCOSE; Start 11/26/18 at 18:30 Glucose (Glutose) 22.5 gm Q15M PRN PO DECREASED GLUCOSE; Start 11/26/18 at 18:30 Dextrose (D50w Syringe) 25 ml Q15M PRN IV DECREASED GLUCOSE; Start 11/26/18 at 18:30 Dextrose (D50w Syringe) 50 ml Q15M PRN IV DECREASED GLUCOSE; Start 11/26/18 at 18:30 Glucagon (Glucagen) 1 mg Q15M PRN IM DECREASED GLUCOSE; Start 11/26/18 at 18:30 Glucose (Glutose) 15 gm Q15M PRN BUCCAL DECREASED GLUCOSE; Start 11/26/18 at 18:30 Diagnostic Test (Pha) (Accu-Chek) 1 ea 02 XX Last administered on 12/11/18 01:49; Admin Dose 1 EA; Start 11/27/18 at 02:00 Lorazepam (Ativan) 1 mg Q2H PRN IV SEIZURES Last administered on 11/29/18 14:39; Admin Dose 1 MG; Start 11/27/18 at 18:00 Aspirin (Aspirin) 81 mg DAILY GTB Last administered on 12/13/18 09:06; Admin Dose 81 MG; Start 11/29/18 at 10:00 Levetiracetam 100 ml @ 400 mls/hr Q12 IVPB Last administered on 12/13/18 09:05; Admin Dose 400 MLS/HR; Start 11/29/18 at 21:00 Acetaminophen (Tylenol Liquid) 650 mg Q4H PRN GTB MILD PAIN(1-3)OR ELEVATED TEMP Last administered on 12/12/18 16:18; Admin Dose 650 MG; Start 12/03/18 at 02:00 Sodium Hypochlorite (Dakin'S (Dilute )) 1 applic BID IRR Last administered on 12/13/18 09:07; Admin Dose 1 APPLIC; Start 12/03/18 at 11:24 Vancomycin HCl (Vanco Iv Per Pharmacy) VANCOMYCIN PER PHARMACY PER PROTOCOL XX ; Start 12/07/18 at 23:30 Insulin Aspart (Novolog Insulin Pen) NOVOLOG *MILD* ALGORI... Q6 SC Last administered on 12/12/18 18:27; Admin Dose 1 UNIT; Start 12/09/18 at 18:00 Alteplase, Recombinant (Cathflo (Activase)) 2 mg MAY REPEAT X1 PRN CATHETER IF CATHETER REMAINS OCCULUDED Last administered on 12/10/18 16:17; Admin Dose 2 MG; Start 12/09/18 at 23:30 Albuterol/ Ipratropium (Duoneb) 3 ml Q6HWA RESP THERAPY HHN Last administered on 12/13/18 13:00; Admin Dose 3 ML; Start 12/12/18 at 14:00 Albuterol/ Ipratropium (Duoneb) 3 ml Q4H RESP THERAPY PRN HHN SHORTNESS OF BREATH; Start 12/12/18 at 12:30 Vancomycin HCl 250 ml @ 125 mls/hr Q24H IVPB Last administered on 12/13/18 02:32; Admin Dose 125 MLS/HR; Start 12/13/18 at 03:00 Ceftazidime 50 ml @ 100 mls/hr Q8 IVPB Last administered on 12/13/18 15:11; Admin Dose 100 MLS/HR; Start 12/12/18 at 18:00 Metronidazole 100 ml @ 100 mls/hr Q8 IVPB Last administered on 12/13/18 14:04; Admin Dose 100 MLS/HR; Start 12/12/18 at 17:00 Collagenase (Santyl) 1 applic DAILY TOP Last administered on 12/13/18 11:43; Admin Dose 1 APPLIC; Start 12/13/18 at 10:30 AGNES HERNANDEZ NP December 13, 2018 17:33
[2018-12-13 20:15] VITALS: BP 115/53; PULSE 77; RESP 16
--- NOTE | 2018-12-13 23:28 | PN ---
Date/Time of Note Date/Time of Note DATE: 12/13/18 TIME: 23:27 Assessment/Plan VTE [place]axis [place] [facility] [place]: 8 [place]CD [place] [facility] [place] SCD contraindicated: other Pharmacological prophylaxis: other Pharm contraindication: other Lines/Catheters [facility] ([facility] PICC Line Central line still needed: Yes Urinary Cath still in place: Yes Reason Cath still needed: urinary retention Assessment/Plan Hospital Course - SEPSIS -per ID - Hypernatremia - monitor BMP - If no improvement; will get nephrology consult -Atrial fibrillation/ flutter with rapid ventricular response. Patient is currently in sinus rhythm. - Continue amiodarone. Dr. Monson is following in cardiology consultation. -Progressive supranuclear palsy -Respiratory failure with tracheostomy patient is currently on cool aerosol mist. -Chronic encephalopathy -Decubitus ulcer of the right hip and sacrum, status post Girdlestone procedure of the right hip with flap in September 2018, followed by removal of necrotic tissue by Dr. Triplett at [facility]. - sp evaluation by ortho- dr matos -Right hip wound infection with OM of R hip, completed treatment with antibiotics. - surgery follows -Wound dehiscence, s/p repeat debridement at [facility] on 11/03/2018. -Diabetes - GLYCEMIC control -Chronic diastolic CHF -Dysphagia with GT - aspiration precautions -Anemia of chronic disease Further recommendations based on clinical course. Plan of care discussed with Dr. Shannon. DW staff Result Diagram: 12/13/18 0514 12/13/18 0514 Results 24hrs Laboratory Tests Test 12/13/18 00:25 12/13/18 05:14 12/13/18 05:27 12/13/18 06:24 Bedside Glucose 138 135 White Blood Count 8.2 # Red Blood Count 3.55 L Hemoglobin 9.1 L Hematocrit 29.7 L Mean Corpuscular 83.7 Volume Mean Corpuscular 25.6 L Hemoglobin Mean Corpuscular 30.6 L Hemoglobin Concen t Red Cell 17.7 H Distribution Width Platelet Count 368 Mean Platelet 10.4 Volume Immature 0.400 Granulocytes % Neutrophils % 75.7 Lymphocytes % 15.3 Monocytes % 4.8 Eosinophils % 2.7 Basophils % 1.1 Nucleated Red 0.0 Blood Cells % Immature 0.030 Granulocytes # Neutrophils # 6.2 Lymphocytes # 1.3 Monocytes # 0.4 Eosinophils # 0.2 Basophils # 0.1 Nucleated Red 0.0 Blood Cells # Sodium Level 140 Potassium Level 5.0 Chloride Level 106 Carbon Dioxide 28 Level Anion Gap 6 Blood Urea 27 H Nitrogen Creatinine 0.35 L Est Glomerular Filtrat Rate mL/min Glucose Level 155 Lactic Acid Level 1.3 Calcium Level 9.5 Procalcitonin 2.43 H Urine Color YELLOW Urine Clarity SLIGHTLY CLOUDY A Urine pH 5.0 Urine Specific 1.018 [place] Urine Ketones NEGATIVE Urine Nitrite NEGATIVE Urine Bilirubin NEGATIVE Urine NEGATIVE Urobilinogen Urine Leukocyte 1+ H Esterase Urine Microscopic 5 RBC Urine Microscopic 44 H WBC Urine Bacteria FEW A Urine Hemoglobin NEGATIVE Urine Glucose NEGATIVE Urine Total NEGATIVE Protein Test 12/13/18 11:45 12/13/18 17:49 Bedside Glucose 122 139 Subjective 24 Hr Interval Summary Free Text/Dictation NAD afebrile no new issues reported last night SNF placement when stable dw staff Subjective hx not possible: pt non-verbal Exam/Review of Systems Exam Vitals Vital Signs Date Temp Pulse Resp B/P (MAP) Pulse Ox O2 O2 Flow FiO2 Time Delivery Rate 12/13/18 73 18 98 Aerosol 5.0 28 22:50 T Tube 12/13/18 98.3 115/53 20:15 (73) Intake and Output 12/12/18 12/12/18 12/13/18 1515:00 23:00 07:00 IntakeIntake Total 100 ml 300 ml 450 ml OutputOutput Total 150 ml 1000 ml BalanceBalance -50 ml -700 ml 450 ml Constitutional: frail Psych: nl mood/affect Eyes: nl lids, nl sclera ENMT: nl external ears & nose Neck: other (trach inatct) Respiratory: clear to auscultation Cardiovascular: nl pulses, other (s1s2) Gastrointestinal: soft, other (gt intact) Musculoskeletal: muscle weakness, range of motion Extremities: normal pulses Neurological: unresponsive Results Results 24hrs Laboratory Tests Test 12/13/18 00:25 12/13/18 05:14 12/13/18 05:27 12/13/18 06:24 Bedside Glucose 138 135 White Blood Count 8.2 # Red Blood Count 3.55 L Hemoglobin 9.1 L Hematocrit 29.7 L Mean Corpuscular 83.7 Volume Mean Corpuscular 25.6 L Hemoglobin Mean Corpuscular 30.6 L Hemoglobin Concen t Red Cell 17.7 H Distribution Width Platelet Count 368 Mean Platelet 10.4 Volume Immature 0.400 Granulocytes % Neutrophils % 75.7 Lymphocytes % 15.3 Monocytes % 4.8 Eosinophils % 2.7 Basophils % 1.1 Nucleated Red 0.0 Blood Cells % Immature 0.030 Granulocytes # Neutrophils # 6.2 Lymphocytes # 1.3 Monocytes # 0.4 Eosinophils # 0.2 Basophils # 0.1 Nucleated Red 0.0 Blood Cells # Sodium Level 140 Potassium Level 5.0 Chloride Level 106 Carbon Dioxide 28 Level Anion Gap 6 Blood Urea 27 H Nitrogen Creatinine 0.35 L Est Glomerular Filtrat Rate mL/min Glucose Level 155 Lactic Acid Level 1.3 Calcium Level 9.5 Procalcitonin 2.43 H Urine Color YELLOW Urine Clarity SLIGHTLY CLOUDY A Urine pH 5.0 Urine Specific 1.018 [place] Urine Ketones NEGATIVE Urine Nitrite NEGATIVE Urine Bilirubin NEGATIVE Urine NEGATIVE Urobilinogen Urine Leukocyte 1+ H Esterase Urine Microscopic 5 RBC Urine Microscopic 44 H WBC Urine Bacteria FEW A Urine Hemoglobin NEGATIVE Urine Glucose NEGATIVE Urine Total NEGATIVE Protein Test 12/13/18 11:45 12/13/18 17:49 Bedside Glucose 122 139 Medications Medication Current Medications IV Flush (NS 10 ml) 10 ml Q8 IV Last administered on 12/13/18 22:18; Admin Dose 10 ML; Start 11/26/18 at 22:00 Ascorbic Acid (Vitamin C) 500 mg DAILY GTB Last administered on 12/13/18 09:05; Admin Dose 500 MG; Start 11/27/18 at 09:00 Baclofen (Lioresal) 20 mg TID GTB Last administered on 12/13/18at 21:52; Admin Dose 20 MG; Start 11/26/18 at 21:00 Cholecalciferol (Vitamin D) 2,000 unit DAILY GTB Last administered on 12/13/18 09:05; Admin Dose 2,000 UNIT; Start 11/27/18 at 09:00 Cyanocobalamin (Vitamin B12) 1,000 mcg DAILY GTB Last administered on 12/13/18 09:05; Admin Dose 1,000 MCG; Start 11/27/18 at 09:00 Miscellaneous Information 1 ea NOTE XX ; Start 11/26/18 at 18:30 Glucose (Glutose) 15 gm Q15M PRN PO DECREASED GLUCOSE; Start 11/26/18 at 18:30 Glucose (Glutose) 22.5 gm Q15M PRN PO DECREASED GLUCOSE; Start 11/26/18 at 18:30 Dextrose (D50w Syringe) 25 ml Q15M PRN IV DECREASED GLUCOSE; Start 11/26/18 at 18:30 Dextrose (D50w Syringe) 50 ml Q15M PRN IV DECREASED GLUCOSE; Start 11/26/18 at 18:30 Glucagon (Glucagen) 1 mg Q15M PRN IM DECREASED GLUCOSE; Start 11/26/18 at 18:30 Glucose (Glutose) 15 gm Q15M PRN BUCCAL DECREASED GLUCOSE; Start 11/26/18 at 18:30 Diagnostic Test (Pha) (Accu-Chek) 1 ea 02 XX Last administered on 12/11/18 01:49; Admin Dose 1 EA; Start 11/27/18 at 02:00 Lorazepam (Ativan) 1 mg Q2H PRN IV SEIZURES Last administered on 11/29/18 14:39; Admin Dose 1 MG; Start 11/27/18 at 18:00 Aspirin (Aspirin) 81 mg DAILY GTB Last administered on 12/13/18 09:06; Admin Dose 81 MG; Start 11/29/18 at 10:00 Levetiracetam 100 ml @ 400 mls/hr Q12 IVPB Last administered on 12/13/18 21:52; Admin Dose 400 MLS/HR; Start 11/29/18 at 21:00 Acetaminophen (Tylenol Liquid) 650 mg Q4H PRN GTB MILD PAIN(1-3)OR ELEVATED TEMP Last administered on 12/12/18 16:18; Admin Dose 650 MG; Start 12/03/18 at 02:00 Sodium Hypochlorite (Dakin'S (Dilute )) 1 applic BID IRR Last administered on 12/13/18 21:53; Admin Dose 1 APPLIC; Start 12/03/18 at 11:24 Vancomycin HCl (Vanco Iv Per Pharmacy) VANCOMYCIN PER PHARMACY PER PROTOCOL XX ; Start 12/07/18 at 23:30 Insulin Aspart (Novolog Insulin Pen) NOVOLOG *MILD* ALGORI... Q6 SC Last administered on 12/12/18 18:27; Admin Dose 1 UNIT; Start 12/09/18 at 18:00 Alteplase, Recombinant (Cathflo (Activase)) 2 mg MAY REPEAT X1 PRN CATHETER IF CATHETER REMAINS OCCULUDED Last administered on 12/10/18 16:17; Admin Dose 2 MG; Start 12/09/18 at 23:30 Albuterol/ Ipratropium (Duoneb) 3 ml Q6HWA RESP THERAPY HHN Last administered on 12/13/18 19:13; Admin Dose 3 ML; Start 12/12/18 at 14:00 Albuterol/ Ipratropium (Duoneb) 3 ml Q4H RESP THERAPY PRN HHN SHORTNESS OF BREATH; Start 12/12/18 at 12:30 Vancomycin HCl 250 ml @ 125 mls/hr Q24H IVPB Last administered on 12/13/18 02:32; Admin Dose 125 MLS/HR; Start 12/13/18 at 03:00 Ceftazidime 50 ml @ 100 mls/hr Q8 IVPB Last administered on 12/13/18 22:18; Admin Dose 100 MLS/HR; Start 12/12/18 at 18:00 Metronidazole 100 ml @ 100 mls/hr Q8 IVPB Last administered on 12/13/18 22:53; Admin Dose 100 MLS/HR; Start 12/12/18 at 17:00 Collagenase (Santyl) 1 applic DAILY TOP Last administered on 12/13/18 11:43; Admin Dose 1 APPLIC; Start 12/13/18 at 10:30 NADEEN CHO December 13, 2018 23:28
[2018-12-14] MEDS: ACCU-CHEK XX SCH (00:54)
[2018-12-14 02:00] VITALS: BP 97/55; PULSE 63; RESP 16
[2018-12-14] MEDS: VANCOMYCIN 1 GM 250 ML IVPB SCH (02:42)
[2018-12-14] MEDS: CEFTAZIDIME 1GM/50 ML (PMX) 50 ML IVPB SCH ×2 (05:57→14:52)
[2018-12-14] MEDS: INSULIN ASPART [NOVOLOG] 3 ML PEN SC SCH ×3 (05:59→18:00)
[2018-12-14] MEDS: metroNIDAZOLE 500 MG/NS (PMX) 100 ML IVPB SCH ×2 (06:33→14:51)
[2018-12-14 08:06] VITALS: BP 114/54; PULSE 69; RESP 18
[2018-12-14] MEDS: ALBUTEROL/IPRATROPIUM (NEB) 3 ML AMP HHN SCH ×3 (08:31→20:50)
[2018-12-14] MEDS: BACLOFEN 10 MG TAB GTB SCH ×3 (09:47→22:08)
[2018-12-14] MEDS: ASCORBIC ACID 500 MG TAB GTB SCH (09:47)
[2018-12-14] MEDS: COLLAGENASE 5 GM (UD JAR) TOP SCH (09:48)
[2018-12-14] MEDS: ASPIRIN 81 MG TAB GTB SCH (09:48)
[2018-12-14] MEDS: CHOLECALCIFEROL 2,000 UNIT CAP GTB SCH (09:48)
[2018-12-14] MEDS: CYANOCOBALAMIN 500 MCG TAB GTB SCH (09:48)
[2018-12-14] MEDS: SODIUM HYPOCHLORITE (1/40) 1 LITER BTL IRR SCH ×2 (09:49→21:48)
[2018-12-14] MEDS: BALSAM PERU/CASTOR OIL 60 GM TUBE TOP SCH (09:49)
[2018-12-14] MEDS: LEVETIRACETAM 1000 MG (PMX) 100 ML IVPB SCH ×2 (09:59→23:46)
[2018-12-14 13:32] VITALS: BP 115/56; PULSE 80; RESP 16
--- NOTE | 2018-12-14 15:27 | CONS ---
Assessment/Plan Assessment/Plan Hospital Course (Demo Recall) 1. Atrial fibrillation/atrial flutter with rapid ventricular response - now in SR - treated - will follow. Remains in sinus now. RATE CONTROLLED. 2. Hypotension/shock state, likely septic - better now. .BP well controlled now. In good range now. 3. History of cardiomyopathy with mildly depressed left ventricular ejection fraction approximately 40% to 45%. Keep euvolemic. Chronic. 4. History of congestive heart failure, systolic, chronic. 5. Possible pneumonia - on meds, con't anti-bx. NO new fevers. 6. Sepsis- treated, better now -no fevers. 7. Leukocytosis. 8. Anemia requiring transfusions- no active bleed now. Treated. 9. Hypernatremia. 10. Coagulopathy. 11. Urinary tract infection. Consultation Date/Type/Reason Admit Date/Time Nov 26, 2018 at 20:42 Initial Consult Date 11/27/18 Requesting Provider: NADEEN CHO Date/Time of Note DATE: 12/14/18 TIME: 15:27 24 HR Interval Summary Free Text/Dictation Pt comfortable - VS reviewed - stable Exam/Review of Systems Exam Vitals Vital Signs Date Temp Pulse Resp B/P (MAP) Pulse Ox O2 O2 Flow FiO2 Time Delivery Rate 12/14/18 74 18 98 Aerosol 5.0 28 14:17 12/14/18 98.7 115/56 13:32 (75) Intake and Output 12/13/18 12/13/18 12/14/18 1515:00 23:00 07:00 IntakeIntake Total 1280 ml 400 ml OutputOutput Total 800 ml BalanceBalance 1280 ml -400 ml Results Result Diagram: 12/14/18 0643 12/14/18 0643 Results 24hrs Laboratory Tests Test 12/13/18 17:49 12/13/18 23:35 12/14/18 05:59 12/14/18 06:43 Bedside Glucose 139 159 137 White Blood Count 8.1 Red Blood Count 3.43 L Hemoglobin 8.7 L Hematocrit 28.7 L Mean Corpuscular 83.7 Volume Mean Corpuscular 25.4 L Hemoglobin Mean Corpuscular 30.3 L Hemoglobin Concent Red Cell 17.8 H Distribution Width Platelet Count 335 Mean Platelet Volume 10.8 H Immature 0.500 H Granulocytes % Neutrophils % 68.6 Lymphocytes % 19.1 Monocytes % 5.8 Eosinophils % 5.1 Basophils % 0.9 Nucleated Red Blood 0.0 Cells % Immature 0.040 H Granulocytes # Neutrophils # 5.5 Lymphocytes # 1.5 Monocytes # 0.5 Eosinophils # 0.4 Basophils # 0.1 Nucleated Red Blood 0.0 Cells # Sodium Level 139 Potassium Level 5.2 H Chloride Level 105 Carbon Dioxide Level 28 Anion Gap 6 Blood Urea Nitrogen 27 H Creatinine 0.33 L Est Glomerular Filtrat Rate mL/min Glucose Level 123 Calcium Level 9.2 Test 12/14/18 12:48 Bedside Glucose 122 Medications Medication Current Medications IV Flush (NS 10 ml) 10 ml Q8 IV Last administered on 12/14/18 05:57; Admin Dose 10 ML; Start 11/26/18 at 22:00 Ascorbic Acid (Vitamin C) 500 mg DAILY GTB Last administered on 12/14/18 09:47; Admin Dose 500 MG; Start 11/27/18 at 09:00 Baclofen (Lioresal) 20 mg TID GTB Last administered on 12/14/18 12:49; Admin Dose 20 MG; Start 11/26/18 at 21:00 Cholecalciferol (Vitamin D) 2,000 unit DAILY GTB Last administered on 12/14/18 09:48; Admin Dose 2,000 UNIT; Start 11/27/18 at 09:00 Cyanocobalamin (Vitamin B12) 1,000 mcg DAILY GTB Last administered on 12/14/18 09:48; Admin Dose 1,000 MCG; Start 11/27/18 at 09:00 Miscellaneous Information 1 ea NOTE XX ; Start 11/26/18 at 18:30 Glucose (Glutose) 15 gm Q15M PRN PO DECREASED GLUCOSE; Start 11/26/18 at 18:30 Glucose (Glutose) 22.5 gm Q15M PRN PO DECREASED GLUCOSE; Start 11/26/18 at 18:30 Dextrose (D50w Syringe) 25 ml Q15M PRN IV DECREASED GLUCOSE; Start 11/26/18 at 18:30 Dextrose (D50w Syringe) 50 ml Q15M PRN IV DECREASED GLUCOSE; Start 11/26/18 at 18:30 Glucagon (Glucagen) 1 mg Q15M PRN IM DECREASED GLUCOSE; Start 11/26/18 at 18:30 Glucose (Glutose) 15 gm Q15M PRN BUCCAL DECREASED GLUCOSE; Start 11/26/18 at 18:30 Diagnostic Test (Pha) (Accu-Chek) 1 ea 02 XX Last administered on 12/11/18 01:49; Admin Dose 1 EA; Start 11/27/18 at 02:00 Lorazepam (Ativan) 1 mg Q2H PRN IV SEIZURES Last administered on 11/29/18 14:39; Admin Dose 1 MG; Start 11/27/18 at 18:00 Aspirin (Aspirin) 81 mg DAILY GTB Last administered on 12/14/18 09:48; Admin Dose 81 MG; Start 11/29/18 at 10:00 Levetiracetam 100 ml @ 400 mls/hr Q12 IVPB Last administered on 12/14/18 09:59; Admin Dose 400 MLS/HR; Start 11/29/18 at 21:00 Acetaminophen (Tylenol Liquid) 650 mg Q4H PRN GTB MILD PAIN(1-3)OR ELEVATED TEMP Last administered on 12/12/18 16:18; Admin Dose 650 MG; Start 12/03/18 at 02:00 Sodium Hypochlorite (Dakin'S (Dilute )) 1 applic BID IRR Last administered on 12/14/18 09:49; Admin Dose 1 APPLIC; Start 12/03/18 at 11:24 Vancomycin HCl (Vanco Iv Per Pharmacy) VANCOMYCIN PER PHARMACY PER PROTOCOL XX ; Start 12/07/18 at 23:30 Insulin Aspart (Novolog Insulin Pen) NOVOLOG *MILD* ALGORI... Q6 SC Last administered on 12/13/18 23:38; Admin Dose 1 UNIT; Start 12/09/18 at 18:00 Alteplase, Recombinant (Cathflo (Activase)) 2 mg MAY REPEAT X1 PRN CATHETER IF CATHETER REMAINS OCCULUDED Last administered on 12/10/18 16:17; Admin Dose 2 MG; Start 12/09/18 at 23:30 Albuterol/ Ipratropium (Duoneb) 3 ml Q6HWA RESP THERAPY HHN Last administered on 12/14/18 14:16; Admin Dose 3 ML; Start 12/12/18 at 14:00 Albuterol/ Ipratropium (Duoneb) 3 ml Q4H RESP THERAPY PRN HHN SHORTNESS OF BREATH; Start 12/12/18 at 12:30 Vancomycin HCl 250 ml @ 125 mls/hr Q24H IVPB Last administered on 12/14/18 02:42; Admin Dose 125 MLS/HR; Start 12/13/18 at 03:00 Ceftazidime 50 ml @ 100 mls/hr Q8 IVPB Last administered on 12/14/18 14:52; Admin Dose 100 MLS/HR; Start 12/12/18 at 18:00 Metronidazole 100 ml @ 100 mls/hr Q8 IVPB Last administered on 12/14/18 14:51; Admin Dose 100 MLS/HR; Start 12/12/18 at 17:00 Collagenase (Santyl) 1 applic DAILY TOP Last administered on 12/14/18 09:48; Admin Dose 1 APPLIC; Start 12/13/18 at 10:30 ZAHIRA RAJAN MD December 14, 2018 15:27
--- NOTE | 2018-12-14 15:59 | CONS ---
[facility] HCIS Consult Follow-up Patient Name: Brenda Willingham Unit Number: [id number] Date of : 1945 Patient Status: Admitted Inpatient Attending Doctor: Nirmal Shannon MD Edit: IRWIN PINA M.D. on 12/16/18 @ 03:20 Silvana: I discussed the management with [employer] and agree Assessment/Plan Assessment/Plan Hospital Course (Demo Recall) # sepsis, endovascular infection, respiratory - sepsis on 12/12/18 unknown etiology; suspect possible intra abdominal infection, blood cxs grew bacteroides fragilis - sepsis on 12/07/2018 due to bacteremia and likely wound infection. Procalcitonin was 1.96 on 12/07/2018, and so we suspect this is caused by bacterial infection; - low grade fever and leukocytosis have resolved - Bacteremia - blood cultures 12/07/18 are growing GNR - s/p septic shock due to probable UTI - s/p coag negative Staph in blood cultures on 11/26/2018, probable contaminant - colonization of the airway by pseudomonas and corynebacteria on 11/26/2018; MDR pseudomonas in trach aspirate cx from 12/08/2018 likely a colonizer - h/o sepsis due to bacteremia and pneumonia - h/o bacteremia: blood cultures grew enterococcus faecalis on 09/17/2018 secondary to R hip wound infection as its wound culture on 09/16/2018 grew E. faecalis as well - h/o recurrent acute on chronic hypoxemic respiratory failure secondary to secretion retention, mucous plugging, major left lung atelectasis, severe shunting - h/o probable aspiration pneumonia. - h/o pneumonia due to pseudomonas on 09/30/2018. s/p Levaquin (10/03/18- 10/07/2018), Meropenem (restart 09/30/2018-10/03/18, 10/12/18 - 10/19/2018) and empiric Amikacin (09/30/18-10/03/18) - H/o intubation on 09/30/2018 - H/o tracheostomy on 10/04/2018 - h/o pseudomonas in urine culture on 09/17/2018 with mild pyuria; treated with Cefepime (09/20/2018-09/25/2018) # infection of wound, OM of R hip, pressure ulcer - colonization of the wound of R hip by pseudomonas (wound culture on 10/31/2018), acinetobacter (wound culture on 11/27/2018) - h/o repeat debridement at [facility] on 11/03/[address]. [address] Pierson, her plastic surgeon at [facility], the wound appeared clean during the I&D (my conversation with him on 11/06/2018) - H/o stage sacral decubitus ulcer extending to bilateral buttocks. She reportedly had total hip dislocation and exposed femoral head. CT pelvis showed e/o OM. Pt complete IV vancomycin (09/17/2018-10/29/2018) for sacral OM associated with E. faecalis - H/o sharp excisional debridement down to and including bone of the sacrum on 08/22/2018 and 09/19/2018 - H/o excision of R hip ulcer, girdlestone resection arthroplasty and flap reconstruction 09/23/2018. The surgical pathology showed osteomyelitis of R hip bone, soft tissue cellulitis, and bony margin of excision was free of the disease - according to Dr. Pierson who performed the wound debridement, Pt needs wound care until granulation tissue builds and infection is cleared. Then he would decide if Pt should get repeat closure or not - XR of R hip on 11/09/2009 showed the remaining R femoral shaft in transverse orientation and with lateral deviation - h/o removal of devitalized/necrotic tissue by Dr. Pierson on 10/07/2018 # renal/ - funguria, recurrent; Pt completed 3 day course of fluconazole (12/04-12/06/2018). Ramires was changed on 12/04/2018. - hematuria on 11/26/2018 - h/o moderate L hydronephrosis per renal US # heme, neuro - h/o acute on chronic anemia requiring PRBC - chronic metabolic encephalopathy - supranuclear palsy # endo, cardiac - diabetes mellitus - A fib with RVR - chronic diastolic HF (EF 40-45% with grade 1 DD per 2D Echo 10/24/2018) - h/o hypertension # allergy - penicillin allergy (throat swelling) but Pt tolerates cefepime, ceftazidime, meropenem Recommendations: - DC Vancomycin (restart 12/07/2018-) - Continue Ceftazidime (12/12/2018 - ); s/p jose (restart 12/07-12/12/2018) - Continue Flagyl IV (for possible intra abdominal infection in result of blood cxs +Bacteroides fragilis ) - Pending: blood cx (NGTD), urine cx (in process), resp cx (GNR) - Pt completed 3 day course of fluconazole (12/04-12/06/2018). Ramires was changed on 12/04/2018 Management d/w JAY Humphries and with Dr. Pina Consultation Date/Type/Reason Admit Date/Time Nov 26, 2018 at 20:42 Initial Consult Date 11/27/18 Type of Consult Infectious Disease Requesting Provider: NADEEN CHO Date/Time of Note DATE: 12/14/18 TIME: 15:59 24 HR Interval Summary Free Text/Dictation Trach aspirate culture is growing GNR. Afebrile and WBC remains WNL. No acute issues per d/w JAY Humphries. Unable to perform ROS d/t chronic encephalopathy. Subjective hx not possible: pt non-verbal Exam/Review of Systems Exam Vitals Vital Signs Date Temp Pulse Resp B/P (MAP) Pulse Ox O2 O2 Flow FiO2 Time Delivery Rate 12/14/18 74 18 98 Aerosol 5.0 28 14:17 12/14/18 98.7 115/56 13:32 (75) Intake and Output 12/13/18 12/13/18 12/14/18 1515:00 23:00 07:00 IntakeIntake Total 1280 ml 400 ml OutputOutput Total 800 ml BalanceBalance 1280 ml -400 ml Exam Constitutional: well developed, non-verbal, frail, other (chronically debilitated) Psych: other (unable to assess) Head: normocephalic, atraumatic Eyes: nl conjunctiva, nl lids, nl sclera ENMT: nl external ears & nose, nl nasal mucosa & septum, mucosa pink and moist (no thrush) Neck: other (trach with T-piece) Respiratory: normal air movement, diminished breath sounds, other (coarse breath sounds; On T-piece via trach) Cardiovascular: regular rate and rhythm, nl pulses Gastrointestinal: soft, non-tender, other (+G-tube c/d/i) Genitourinary - Female: other (+Ramires) Musculoskeletal: other (large wound on R hip with dressing c/d/i) Extremities: normal pulses, other (contractures to all 4 extremities); No edema Neurological: unresponsive (obtunded) Skin: nl turgor, other (wounds - reviewed nursing notes and photos in chart); No rash or lesions Results Result Diagram: 12/14/18 0643 12/14/18 0643 Results 24hrs Laboratory Tests Test 12/13/18 17:49 12/13/18 23:35 12/14/18 05:59 12/14/18 06:43 Bedside Glucose 139 159 137 White Blood Count 8.1 Red Blood Count 3.43 L Hemoglobin 8.7 L Hematocrit 28.7 L Mean Corpuscular 83.7 Volume Mean Corpuscular 25.4 L Hemoglobin Mean Corpuscular 30.3 L Hemoglobin Concent Red Cell 17.8 H Distribution Width Platelet Count 335 Mean Platelet Volume 10.8 H Immature 0.500 H Granulocytes % Neutrophils % 68.6 Lymphocytes % 19.1 Monocytes % 5.8 Eosinophils % 5.1 Basophils % 0.9 Nucleated Red Blood 0.0 Cells % Immature 0.040 H Granulocytes # Neutrophils # 5.5 Lymphocytes # 1.5 Monocytes # 0.5 Eosinophils # 0.4 Basophils # 0.1 Nucleated Red Blood 0.0 Cells # Sodium Level 139 Potassium Level 5.2 H Chloride Level 105 Carbon Dioxide Level 28 Anion Gap 6 Blood Urea Nitrogen 27 H Creatinine 0.33 L Est Glomerular Filtrat Rate mL/min Glucose Level 123 Calcium Level 9.2 Test 12/14/18 12:48 Bedside Glucose 122 Imaging Imaging CXR 12/13/2018: Diffuse interstitial and airspace opacities throughout the lungs are increased since the prior examination and represent pulmonary edema or multifocal infection. Medications Medication Current Medications IV Flush (NS 10 ml) 10 ml Q8 IV Last administered on 12/14/18at 05:57; Admin Dose 10 ML; Start 11/26/18 at 22:00 Ascorbic Acid (Vitamin C) 500 mg DAILY GTB Last administered on 12/14/18at 09:47; Admin Dose 500 MG; Start 11/27/18 at 09:00 Baclofen (Lioresal) 20 mg TID GTB Last administered on 12/14/18 12:49; Admin Dose 20 MG; Start 11/26/18 at 21:00 Cholecalciferol (Vitamin D) 2,000 unit DAILY GTB Last administered on 12/14/18 09:48; Admin Dose 2,000 UNIT; Start 11/27/18 at 09:00 Cyanocobalamin (Vitamin B12) 1,000 mcg DAILY GTB Last administered on 12/14/18 09:48; Admin Dose 1,000 MCG; Start 11/27/18 at 09:00 Miscellaneous Information 1 ea NOTE XX ; Start 11/26/18 at 18:30 Glucose (Glutose) 15 gm Q15M PRN PO DECREASED GLUCOSE; Start 11/26/18 at 18:30 Glucose (Glutose) 22.5 gm Q15M PRN PO DECREASED GLUCOSE; Start 11/26/18 at 18:30 Dextrose (D50w Syringe) 25 ml Q15M PRN IV DECREASED GLUCOSE; Start 11/26/18 at 18:30 Dextrose (D50w Syringe) 50 ml Q15M PRN IV DECREASED GLUCOSE; Start 11/26/18 at 18:30 Glucagon (Glucagen) 1 mg Q15M PRN IM DECREASED GLUCOSE; Start 11/26/18 at 18:30 Glucose (Glutose) 15 gm Q15M PRN BUCCAL DECREASED GLUCOSE; Start 11/26/18 at 18:30 Diagnostic Test (Pha) (Accu-Chek) 1 ea 02 XX Last administered on 12/11/18at 01:49; Admin Dose 1 EA; Start 11/27/18 at 02:00 Lorazepam (Ativan) 1 mg Q2H PRN IV SEIZURES Last administered on 11/29/18at 14:39; Admin Dose 1 MG; Start 11/27/18 at 18:00 Aspirin (Aspirin) 81 mg DAILY GTB Last administered on 12/14/18at 09:48; Admin Dose 81 MG; Start 11/29/18 at 10:00 Levetiracetam 100 ml @ 400 mls/hr Q12 IVPB Last administered on 12/14/18 09:59; Admin Dose 400 MLS/HR; Start 11/29/18 at 21:00 Acetaminophen (Tylenol Liquid) 650 mg Q4H PRN GTB MILD PAIN(1-3)OR ELEVATED TEMP Last administered on 12/12/18 16:18; Admin Dose 650 MG; Start 12/03/18 at 02:00 Sodium Hypochlorite (Dakin'S (Dilute )) 1 applic BID IRR Last administered on 12/14/18 09:49; Admin Dose 1 APPLIC; Start 12/03/18 at 11:24 Vancomycin HCl (Vanco Iv Per Pharmacy) VANCOMYCIN PER PHARMACY PER PROTOCOL XX ; Start 12/07/18 at 23:30 Insulin Aspart (Novolog Insulin Pen) NOVOLOG *MILD* ALGORI... Q6 SC Last administered on 12/13/18 23:38; Admin Dose 1 UNIT; Start 12/09/18 at 18:00 Alteplase, Recombinant (Cathflo (Activase)) 2 mg MAY REPEAT X1 PRN CATHETER IF CATHETER REMAINS OCCULUDED Last administered on 12/10/18 16:17; Admin Dose 2 MG; Start 12/09/18 at 23:30 Albuterol/ Ipratropium (Duoneb) 3 ml Q6HWA RESP THERAPY HHN Last administered on 12/14/18 14:16; Admin Dose 3 ML; Start 12/12/18 at 14:00 Albuterol/ Ipratropium (Duoneb) 3 ml Q4H RESP THERAPY PRN HHN SHORTNESS OF BREATH; Start 12/12/18 at 12:30 Vancomycin HCl 250 ml @ 125 mls/hr Q24H IVPB Last administered on 12/14/18 02:42; Admin Dose 125 MLS/HR; Start 12/13/18 at 03:00 Ceftazidime 50 ml @ 100 mls/hr Q8 IVPB Last administered on 12/14/18 14:52; Admin Dose 100 MLS/HR; Start 12/12/18 at 18:00 Metronidazole 100 ml @ 100 mls/hr Q8 IVPB Last administered on 12/14/18 14:51; Admin Dose 100 MLS/HR; Start 12/12/18 at 17:00 Collagenase (Santyl) 1 applic DAILY TOP Last administered on 12/14/18at 09:48; Admin Dose 1 APPLIC; Start 12/13/18 at 10:30 CONOR CHAND NP December 14, 2018 15:59
--- NOTE | 2018-12-14 16:40 | PN ---
Date/Time of Note Date/Time of Note DATE: 12/14/18 TIME: 16:39 Assessment/Plan VTE Prophylaxis Risk score (from [facility]0 risk: 6 SCD applied (from [facility]): Yes SCD contraindicated: other Pharmacological prophylaxis: other Pharm contraindication: other Lines/Catheters IV Catheter Type (from [facility]): PICC Line Central line still needed: Yes Urinary Cath still in place: Yes Reason Cath still needed: urinary retention Assessment/Plan Assessment/Plan - hyperkalemia- Kayexalate 15 gm x 1 - SEPSIS -per ID - Hypernatremia - monitor BMP - If no improvement; will get nephrology consult -Atrial fibrillation/ flutter with rapid ventricular response. Patient is currently in sinus rhythm. - Continue amiodarone. Dr. Monson is following in cardiology consultation. -Progressive supranuclear palsy -Respiratory failure with tracheostomy patient is currently on cool aerosol mist. -Chronic encephalopathy -Decubitus ulcer of the right hip and sacrum, status post Girdlestone procedure of the right hip with flap in September 2018, followed by removal of necrotic tissue by Dr. Triplett at [facility]. 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 - surgery follows -Wound dehiscence, s/p repeat debridement at [facility] on 11/03/2018. -Diabetes - GLYCEMIC control -Chronic diastolic CHF -Dysphagia with GT - aspiration precautions -Anemia of chronic disease Further recommendations based on clinical course. Plan of care discussed with Dr. Shannon. staff Result Diagram: 12/14/18 0643 12/14/18 0643 Results 24hrs Laboratory Tests Test 12/13/18 17:49 12/13/18 23:35 12/14/18 05:59 12/14/18 06:43 Bedside Glucose 139 159 137 White Blood Count 8.1 Red Blood Count 3.43 L Hemoglobin 8.7 L Hematocrit 28.7 L Mean Corpuscular 83.7 Volume Mean Corpuscular 25.4 L Hemoglobin Mean Corpuscular 30.3 L Hemoglobin Concent Red Cell 17.8 H Distribution Width Platelet Count 335 Mean Platelet Volume 10.8 H Immature 0.500 H Granulocytes % Neutrophils % 68.6 Lymphocytes % 19.1 Monocytes % 5.8 Eosinophils % 5.1 Basophils % 0.9 Nucleated Red Blood 0.0 Cells % Immature 0.040 H Granulocytes # Neutrophils # 5.5 Lymphocytes # 1.5 Monocytes # 0.5 Eosinophils # 0.4 Basophils # 0.1 Nucleated Red Blood 0.0 Cells # Sodium Level 139 Potassium Level 5.2 H Chloride Level 105 Carbon Dioxide Level 28 Anion Gap 6 Blood Urea Nitrogen 27 H Creatinine 0.33 L Est Glomerular Filtrat Rate mL/min Glucose Level 123 Calcium Level 9.2 Test 12/14/18 12:48 Bedside Glucose 122 Subjective 24 Hr Interval Summary Free Text/Dictation NAD afebrile seems comfortable on cool aerosol no new issues reported last night SNF placement when stable dw staff Subjective hx not possible: pt non-verbal Constitutional: requiring O2 Exam/Review of Systems Exam Vitals Vital Signs Date Temp Pulse Resp B/P (MAP) Pulse Ox O2 O2 Flow FiO2 Time Delivery Rate 12/14/18 74 18 98 Aerosol 5.0 28 14:17 12/14/18 98.7 115/56 13:32 (75) Intake and Output 12/13/18 12/13/18 12/14/18 1515:00 23:00 07:00 IntakeIntake Total 1280 ml 400 ml OutputOutput Total 800 ml BalanceBalance 1280 ml -400 ml Constitutional: non-verbal, frail Psych: nl mood/affect Results Results 24hrs Laboratory Tests Test 12/13/18 17:49 12/13/18 23:35 12/14/18 05:59 12/14/18 06:43 Bedside Glucose 139 159 137 White Blood Count 8.1 Red Blood Count 3.43 L Hemoglobin 8.7 L Hematocrit 28.7 L Mean Corpuscular 83.7 Volume Mean Corpuscular 25.4 L Hemoglobin Mean Corpuscular 30.3 L Hemoglobin Concent Red Cell 17.8 H Distribution Width Platelet Count 335 Mean Platelet Volume 10.8 H Immature 0.500 H Granulocytes % Neutrophils % 68.6 Lymphocytes % 19.1 Monocytes % 5.8 Eosinophils % 5.1 Basophils % 0.9 Nucleated Red Blood 0.0 Cells % Immature 0.040 H Granulocytes # Neutrophils # 5.5 Lymphocytes # 1.5 Monocytes # 0.5 Eosinophils # 0.4 Basophils # 0.1 Nucleated Red Blood 0.0 Cells # Sodium Level 139 Potassium Level 5.2 H Chloride Level 105 Carbon Dioxide Level 28 Anion Gap 6 Blood Urea Nitrogen 27 H Creatinine 0.33 L Est Glomerular Filtrat Rate mL/min Glucose Level 123 Calcium Level 9.2 Test 12/14/18 12:48 Bedside Glucose 122 Medications Medication Current Medications IV Flush (NS 10 ml) 10 ml Q8 IV Last administered on 12/14/18 05:57; Admin Dose 10 ML; Start 11/26/18 at 22:00 Ascorbic Acid (Vitamin C) 500 mg DAILY GTB Last administered on 12/14/18 09:47; Admin Dose 500 MG; Start 11/27/18 at 09:00 Baclofen (Lioresal) 20 mg TID GTB Last administered on 12/14/18 12:49; Admin Dose 20 MG; Start 11/26/18 at 21:00 Cholecalciferol (Vitamin D) 2,000 unit DAILY GTB Last administered on 12/14/18 09:48; Admin Dose 2,000 UNIT; Start 11/27/18 at 09:00 Cyanocobalamin (Vitamin B12) 1,000 mcg DAILY GTB Last administered on 12/14/18 09:48; Admin Dose 1,000 MCG; Start 11/27/18 at 09:00 Miscellaneous Information 1 ea NOTE XX ; Start 11/26/18 at 18:30 Glucose (Glutose) 15 gm Q15M PRN PO DECREASED GLUCOSE; Start 11/26/18 at 18:30 Glucose (Glutose) 22.5 gm Q15M PRN PO DECREASED GLUCOSE; Start 11/26/18 at 18:30 Dextrose (D50w Syringe) 25 ml Q15M PRN IV DECREASED GLUCOSE; Start 11/26/18 at 18:30 Dextrose (D50w Syringe) 50 ml Q15M PRN IV DECREASED GLUCOSE; Start 11/26/18 at 18:30 Glucagon (Glucagen) 1 mg Q15M PRN IM DECREASED GLUCOSE; Start 11/26/18 at 18:30 Glucose (Glutose) 15 gm Q15M PRN BUCCAL DECREASED GLUCOSE; Start 11/26/18 at 18:30 Diagnostic Test (Pha) (Accu-Chek) 1 ea 02 XX Last administered on 12/11/18 01:49; Admin Dose 1 EA; Start 11/27/18 at 02:00 Lorazepam (Ativan) 1 mg Q2H PRN IV SEIZURES Last administered on 11/29/18 14:39; Admin Dose 1 MG; Start 11/27/18 at 18:00 Aspirin (Aspirin) 81 mg DAILY GTB Last administered on 12/14/18 09:48; Admin Dose 81 MG; Start 11/29/18 at 10:00 Levetiracetam 100 ml @ 400 mls/hr Q12 IVPB Last administered on 12/14/18 09:59; Admin Dose 400 MLS/HR; Start 11/29/18 at 21:00 Acetaminophen (Tylenol Liquid) 650 mg Q4H PRN GTB MILD PAIN(1-3)OR ELEVATED TEMP Last administered on 12/12/18 16:18; Admin Dose 650 MG; Start 12/03/18 at 02:00 Sodium Hypochlorite (Dakin'S (Dilute )) 1 applic BID IRR Last administered on 12/14/18 09:49; Admin Dose 1 APPLIC; Start 12/03/18 at 11:24 Vancomycin HCl (Vanco Iv Per Pharmacy) VANCOMYCIN PER PHARMACY PER PROTOCOL XX ; Start 12/07/18 at 23:30 Insulin Aspart (Novolog Insulin Pen) NOVOLOG *MILD* ALGORI... Q6 SC Last administered on 12/13/18 23:38; Admin Dose 1 UNIT; Start 12/09/18 at 18:00 Alteplase, Recombinant (Cathflo (Activase)) 2 mg MAY REPEAT X1 PRN CATHETER IF CATHETER REMAINS OCCULUDED Last administered on 12/10/18 16:17; Admin Dose 2 MG; Start 12/09/18 at 23:30 Albuterol/ Ipratropium (Duoneb) 3 ml Q6HWA RESP THERAPY HHN Last administered on 12/14/18 14:16; Admin Dose 3 ML; Start 12/12/18 at 14:00 Albuterol/ Ipratropium (Duoneb) 3 ml Q4H RESP THERAPY PRN HHN SHORTNESS OF BREATH; Start 12/12/18 at 12:30 Vancomycin HCl 250 ml @ 125 mls/hr Q24H IVPB Last administered on 12/14/18 02:42; Admin Dose 125 MLS/HR; Start 12/13/18 at 03:00 Ceftazidime 50 ml @ 100 mls/hr Q8 IVPB Last administered on 12/14/18 14:52; Admin Dose 100 MLS/HR; Start 12/12/18 at 18:00 Metronidazole 100 ml @ 100 mls/hr Q8 IVPB Last administered on 12/14/18at 14:51; Admin Dose 100 MLS/HR; Start 12/12/18 at 17:00 Collagenase (Santyl) 1 applic DAILY TOP Last administered on 12/14/18at 09:48; Admin Dose 1 APPLIC; Start 12/13/18 at 10:30 NADEEN CHO December 14, 2018 16:40
[2018-12-14] MEDS: ALTEPLASE (CATHFLO) 2 MG INJ CATHETER PRN ×2 (17:19→21:48)
[2018-12-14 20:58] VITALS: BP 104/55; PULSE 74; RESP 16
[2018-12-15] MEDS: CEFTAZIDIME 1GM/50 ML (PMX) 50 ML IVPB SCH ×4 (00:15→21:41)
[2018-12-15] MEDS: INSULIN ASPART [NOVOLOG] 3 ML PEN SC SCH ×5 (00:23→23:42)
[2018-12-15] MEDS: metroNIDAZOLE 500 MG/NS (PMX) 100 ML IVPB SCH ×4 (00:43→22:31)
[2018-12-15] MEDS: ACCU-CHEK XX SCH (01:40)
[2018-12-15 01:43] VITALS: BP 108/53; PULSE 71; RESP 18
[2018-12-15] MEDS ORDERED: LIDOCAINE 1% (MPF) 5 ML VIAL SC ONE (07:00)
[2018-12-15 07:55] VITALS: BP 101/53; PULSE 71; RESP 20
[2018-12-15] MEDS: ALBUTEROL/IPRATROPIUM (NEB) 3 ML AMP HHN SCH ×3 (08:31→13:56)
[2018-12-15] MEDS: LEVETIRACETAM 1000 MG (PMX) 100 ML IVPB SCH ×2 (09:17→20:34)
[2018-12-15] MEDS: ASCORBIC ACID 500 MG TAB GTB SCH (09:17)
[2018-12-15] MEDS: CYANOCOBALAMIN 500 MCG TAB GTB SCH (09:17)
[2018-12-15] MEDS: COLLAGENASE 5 GM (UD JAR) TOP SCH (09:17)
[2018-12-15] MEDS: BACLOFEN 10 MG TAB GTB SCH ×3 (09:17→20:33)
[2018-12-15] MEDS: CHOLECALCIFEROL 2,000 UNIT CAP GTB SCH (09:17)
[2018-12-15] MEDS: ASPIRIN 81 MG TAB GTB SCH (09:17)
[2018-12-15] MEDS: BALSAM PERU/CASTOR OIL 60 GM TUBE TOP SCH (09:18)
[2018-12-15] MEDS: SODIUM HYPOCHLORITE (1/40) 1 LITER BTL IRR SCH ×2 (09:18→20:34)
--- NOTE | 2018-12-15 11:34 | PN ---
Date/Time of Note Date/Time of Note DATE: 12/15/18 TIME: 11:33 Assessment/Plan VTE Prophylaxis Risk score (from Ns)>0 risk: 5 SCD applied (from [facility]): Yes SCD contraindicated: other Pharmacological prophylaxis: other Lines/Catheters IV Catheter Type (from [facility]): Saline Lock Central line still needed: Yes Urinary Cath still in place: Yes Reason Cath still needed: urinary retention Assessment/Plan Assessment/Plan - hyperkalemia- Kayexalate 15 gm x 1 - SEPSIS -per ID - Hypernatremia - monitor BMP - If no improvement; will get nephrology consult -Atrial fibrillation/ flutter with rapid ventricular response. Patient is currently in sinus rhythm. - Continue amiodarone. Dr. Monson is following in cardiology consultation. -Progressive supranuclear palsy -Respiratory failure with tracheostomy patient is currently on cool aerosol mist. -Chronic encephalopathy -Decubitus ulcer of the right hip and sacrum, status post Girdlestone procedure of the right hip with flap in September 2018, followed by removal of necrotic tissue by Dr. Triplett at [facility]. 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 - surgery follows -Wound dehiscence, s/p repeat debridement at [facility] on 11/03/2018. -Diabetes - GLYCEMIC control -Chronic diastolic CHF -Dysphagia with GT - aspiration precautions -Anemia of chronic disease Further recommendations based on clinical course. Plan of care discussed with Dr. Shannon. DW staff Result Diagram: 12/15/18 0602 12/15/18 0602 Results 24hrs Laboratory Tests Test 12/14/18 12:48 12/14/18 18:12 12/15/18 00:21 12/15/18 06:02 Bedside Glucose 122 122 167 White Blood Count 8.0 Red Blood Count 3.41 L Hemoglobin 8.8 L Hematocrit 28.1 L Mean Corpuscular 82.4 Volume Mean Corpuscular 25.8 L Hemoglobin Mean Corpuscular 31.3 L Hemoglobin Concent Red Cell 17.9 H Distribution Width Platelet Count 327 Mean Platelet Volume 10.5 H Immature 0.600 H Granulocytes % Neutrophils % 70.2 Lymphocytes % 18.3 Monocytes % 5.9 Eosinophils % 3.9 Basophils % 1.1 Nucleated Red Blood 0.0 Cells % Immature 0.050 H Granulocytes # Neutrophils # 5.6 Lymphocytes # 1.5 Monocytes # 0.5 Eosinophils # 0.3 Basophils # 0.1 Nucleated Red Blood 0.0 Cells # Sodium Level 138 Potassium Level 4.8 Chloride Level 104 Carbon Dioxide Level 29 Anion Gap 5 Blood Urea Nitrogen 22 H Creatinine 0.36 L Est Glomerular Filtrat Rate mL/min Glucose Level 135 Calcium Level 9.1 Test 12/15/18 06:34 Bedside Glucose 147 Subjective 24 Hr Interval Summary Free Text/Dictation NAD afebrile comfortable on cool aerosol no new issues reported last night SNF placement when stable dw staff Subjective hx not possible: pt non-verbal Constitutional: requiring O2 Exam/Review of Systems Exam Vitals Vital Signs Date Temp Pulse Resp B/P (MAP) Pulse Ox O2 O2 Flow FiO2 Time Delivery Rate 12/15/18 70 18 98 Aerosol 5.0 28 08:31 12/15/18 98.2 101/53 07:55 (69) Intake and Output 12/14/18 12/14/18 12/15/18 1515:00 23:00 07:00 IntakeIntake Total 200 ml 150 ml 1180 ml OutputOutput Total 1000 ml 500 ml BalanceBalance 200 ml -850 ml 680 ml Constitutional: non-verbal, frail Eyes: nl lids, nl sclera ENMT: nl external ears & nose Neck: other (trach intact) Respiratory: diminished breath sounds Cardiovascular: nl pulses, other (s1s2) Gastrointestinal: soft Musculoskeletal: muscle weakness, range of motion Extremities: normal pulses Neurological: unresponsive Results Results 24hrs Laboratory Tests Test 12/14/18 12:48 12/14/18 18:12 12/15/18 00:21 12/15/18 06:02 Bedside Glucose 122 122 167 White Blood Count 8.0 Red Blood Count 3.41 L Hemoglobin 8.8 L Hematocrit 28.1 L Mean Corpuscular 82.4 Volume Mean Corpuscular 25.8 L Hemoglobin Mean Corpuscular 31.3 L Hemoglobin Concent Red Cell 17.9 H Distribution Width Platelet Count 327 Mean Platelet Volume 10.5 H Immature 0.600 H Granulocytes % Neutrophils % 70.2 Lymphocytes % 18.3 Monocytes % 5.9 Eosinophils % 3.9 Basophils % 1.1 Nucleated Red Blood 0.0 Cells % Immature 0.050 H Granulocytes # Neutrophils # 5.6 Lymphocytes # 1.5 Monocytes # 0.5 Eosinophils # 0.3 Basophils # 0.1 Nucleated Red Blood 0.0 Cells # Sodium Level 138 Potassium Level 4.8 Chloride Level 104 Carbon Dioxide Level 29 Anion Gap 5 Blood Urea Nitrogen 22 H Creatinine 0.36 L Est Glomerular Filtrat Rate mL/min Glucose Level 135 Calcium Level 9.1 Test 12/15/18 06:34 Bedside Glucose 147 Medications Medication Current Medications IV Flush (NS 10 ml) 10 ml Q8 IV Last administered on 12/14/18at 05:57; Admin Dose 10 ML; Start 11/26/18 at 22:00 Ascorbic Acid (Vitamin C) 500 mg DAILY GTB Last administered on 12/15/18 09:17; Admin Dose 500 MG; Start 11/27/18 at 09:00 Baclofen (Lioresal) 20 mg TID GTB Last administered on 12/15/18 09:17; Admin Dose 20 MG; Start 11/26/18 at 21:00 Cholecalciferol (Vitamin D) 2,000 unit DAILY GTB Last administered on 12/15/18 09:17; Admin Dose 2,000 UNIT; Start 11/27/18 at 09:00 Cyanocobalamin (Vitamin B12) 1,000 mcg DAILY GTB Last administered on 12/15/18 09:17; Admin Dose 1,000 MCG; Start 11/27/18 at 09:00 Miscellaneous Information 1 ea NOTE XX ; Start 11/26/18 at 18:30 Glucose (Glutose) 15 gm Q15M PRN PO DECREASED GLUCOSE; Start 11/26/18 at 18:30 Glucose (Glutose) 22.5 gm Q15M PRN PO DECREASED GLUCOSE; Start 11/26/18 at 18:30 Dextrose (D50w Syringe) 25 ml Q15M PRN IV DECREASED GLUCOSE; Start 11/26/18 at 18:30 Dextrose (D50w Syringe) 50 ml Q15M PRN IV DECREASED GLUCOSE; Start 11/26/18 at 18:30 Glucagon (Glucagen) 1 mg Q15M PRN IM DECREASED GLUCOSE; Start 11/26/18 at 18:30 Glucose (Glutose) 15 gm Q15M PRN BUCCAL DECREASED GLUCOSE; Start 11/26/18 at 18:30 Diagnostic Test (Pha) (Accu-Chek) 1 ea 02 XX Last administered on 12/11/18at 01:49; Admin Dose 1 EA; Start 11/27/18 at 02:00 Lorazepam (Ativan) 1 mg Q2H PRN IV SEIZURES Last administered on 11/29/18 14:39; Admin Dose 1 MG; Start 11/27/18 at 18:00 Aspirin (Aspirin) 81 mg DAILY GTB Last administered on 12/15/18 09:17; Admin Dose 81 MG; Start 11/29/18 at 10:00 Levetiracetam 100 ml @ 400 mls/hr Q12 IVPB Last administered on 12/15/18 09:1 7; Admin Dose 400 MLS/HR; Start 11/29/18 at 21:00 Acetaminophen (Tylenol Liquid) 650 mg Q4H PRN GTB MILD PAIN(1-3)OR ELEVATED TEMP Last administered on 12/12/18 16:18; Admin Dose 650 MG; Start 12/03/18 at 02:00 Sodium Hypochlorite (Dakin'S (Dilute )) 1 applic BID IRR Last administered on 12/15/18 09:18; Admin Dose 1 APPLIC; Start 12/03/18 at 11:24 Insulin Aspart (Novolog Insulin Pen) NOVOLOG *MILD* ALGORI... Q6 SC Last administered on 12/15/18 06:37; Admin Dose 1 UNIT; Start 12/09/18 at 18:00 Alteplase, Recombinant (Cathflo (Activase)) 2 mg MAY REPEAT X1 PRN CATHETER IF CATHETER REMAINS OCCULUDED Last administered on 12/14/18 21:48; Admin Dose 2 MG; Start 12/09/18 at 23:30 Albuterol/ Ipratropium (Duoneb) 3 ml Q6HWA RESP THERAPY HHN Last administered on 12/15/18 08:31; Admin Dose 3 ML; Start 12/12/18 at 14:00 Albuterol/ Ipratropium (Duoneb) 3 ml Q4H RESP THERAPY PRN HHN SHORTNESS OF BREATH; Start 12/12/18 at 12:30 Ceftazidime 50 ml @ 100 mls/hr Q8 IVPB Last administered on 12/15/18 06:31; Admin Dose 100 MLS/HR; Start 12/12/18 at 18:00 Metronidazole 100 ml @ 100 mls/hr Q8 IVPB Last administered on 12/15/18at 07:04; Admin Dose 100 MLS/HR; Start 12/12/18 at 17:00 Collagenase (Santyl) 1 applic DAILY TOP Last administered on 12/15/18at 09:17; Admin Dose 1 APPLIC; Start 12/13/18 at 10:30 NADEEN CHO December 15, 2018 11:34
--- NOTE | 2018-12-15 11:54 | HP ---
Date/Time of Note Date/Time of Note DATE: 11/26/18 TIME: 17:02 Assessment/Plan VTE Prophylaxis SCD contraindicated: other Pharmacological prophylaxis: other Pharm contraindication: other Lines/Catheters IV Catheter Type (from Nrsg): Saline Lock Urinary Cath still in place: Yes (removed for new cath placement) Reason Cath still needed: urinary retention Assessment/Plan Assessment/Plan - septic shock due to probable UTI +/- HCAP - admit to ICU - pressors - ID consult - cardio consult- dr perez - surgica consult- DR PIEDRA - ORTHO - infection of wound, OM of R hip - pe ID consuly - probable UTI (hematuria on 11/26/2018) - H/o acute on chronic anemia requiring PRBC - Metabolic encephalopathy - Supranuclear palsy - Diabetes Mellitus - glycemic contrl - A fib with RVR - per cardiology - Chronic diastolic HF (EF 40-45% with grade 1 DD per 2D Echo 10/24/2018) - H/o hypertension - Drug allergy Patient is seen in collaboration with Dr Shannon. Dw staff Result Diagram: 11/26/18 0128 11/26/18 0128 Results 24hrs Laboratory Tests Test 11/26/18 01:26 11/26/18 01:28 11/26/18 01:43 11/26/18 04:16 POC Venous Lactate 2.3 *H 2.3 *H White Blood Count 24.6 #H Red Blood Count 2.94 L Hemoglobin 7.5 L Hematocrit 25.1 L Mean Corpuscular 85.4 Volume Mean Corpuscular 25.5 L Hemoglobin Mean Corpuscular 29.9 L Hemoglobin Concent Red Cell 18.2 H Distribution Width Platelet Count 272 Mean Platelet Volume 11.4 H Immature 2.400 H Granulocytes % Neutrophils % Segmented 82 H Neutrophils % (Manual) Band Neutrophils % 14 H (Manual) Lymphocytes % Lymphocytes % 3 L (Manual) Monocytes % Monocytes % (Manual) 1 Eosinophils % Basophils % Nucleated Red Blood 0.0 Cells % Immature 0.580 H Granulocytes # Neutrophils # Neutrophils # 21.0 H (Manual) Band Neutrophils # 3.4 H Lymphocytes (Manual) 0.7 L Lymphocytes # Monocytes # Monocytes # (Manual) 0.2 L Eosinophils # Basophils # Nucleated Red Blood Cells # Platelet Estimate NORMAL Polychromasia 3+ Anisocytosis 1+ Microcytosis 1+ Prothrombin Time 19.1 #H Prothrombin Time 1.5 Ratio INR International 1.60 Normalized Ratio Activated 35.3 H Partial Thromboplast Time Sodium Level 147 H Potassium Level 5.5 H Chloride Level 106 Carbon Dioxide Level 30 Anion Gap 11 Blood Urea Nitrogen 75 H Creatinine 0.87 Est Glomerular Filtrat Rate mL/min Glucose Level 429 *H Calcium Level 8.5 Total Bilirubin 0.1 L Direct Bilirubin 0.00 Indirect Bilirubin 0.1 Aspartate Amino 34 Transf (AST/SGOT) Alanine 23 Aminotransferase (AL T/SGPT) Alkaline Phosphatase 150 H Troponin I < 0.012 Total Protein 6.9 Albumin 3.3 Globulin 3.60 H Albumin/Globulin 0.91 Ratio Urine Color NEW Urine Clarity CLOUDY A Urine pH 5.0 Urine Specific 1.021 [place] Urine Ketones NEGATIVE Urine Nitrite NEGATIVE Urine Bilirubin NEGATIVE Urine Urobilinogen NEGATIVE Urine Leukocyte TRACE A Esterase Urine Microscopic > 182 H RBC Urine Microscopic 36 H WBC Urine Squamous FEW Epithelial Cells Urine Bacteria FEW A Urine Mucus MODERATE Urine Yeast FEW A (Budding) Urine Hemoglobin 3+ H Urine Glucose 1+ H Urine Total Protein 1+ H Test 11/26/18 04:29 11/26/18 06:02 Bedside Glucose 397 H Lactic Acid Level 2.3 *H HPI/ROS Admit Date/Time Admit Date/Time Hx of Present Illness HPI This is a 73-year-old female trach to blow-by who comes in via EMS for fever. Patient cannot provide any relevant history. History is per EMS when she senior living transfer sheet which is also limited. Past medical history is extensive and has been reviewed. During assessment,no reported shortness of breath, chest pain, palpitations, headache, fever, chills, focal weakness or numbness, abdominal pain, urinary frequency, dysuria, nausea/vomiting, diarrhea, constipation, denies any right/left calf pain/swelling. Patient is admitted under Dr Shannon for further treatment and evaluation. ROS All systems reviewed and are negative except as per history of present illness. Medications Home Meds Reported Medications [Tramadol] No Conflict Check 06/26/13 [Oxybutynin] No Conflict Check 02/18/13 [Furosemide] No Conflict Check 02/18/13 [Atorvastatin] No Conflict Check 02/18/13 [Lorazepam] No Conflict Check 02/18/13 Estrogens Conjugated* (Premarin*) 0.45 Mg Tablet, 1.5 MG PO DAILY 02/18/13 Allergies Allergies: Coded Allergies: Penicillins (Verified Allergy, Unknown, 07/06/13) morphine (Verified Adverse Reaction, Mild, "LOOPY", 10/08/18) Uncoded Allergies: PLASTIC TAPE (Allergy, Unknown, 04/01/07) ROS Subjective hx not possible: pt non-verbal PMH/Family/Social Past Medical History PMhx/Soc History of Surgery: Yes (HYSERECTOMY) Anesthesia Reaction: No Hx Neurological Disorder: Yes (STROKE,) Hx Respiratory Disorders: No Hx Cardiac Disorders: No Hx Psychiatric Problems: No Hx Miscellaneous Medical Probl: No Hx Alcohol Use: No Hx Substance Use: No Hx Tobacco Use: No Smoking Status: Never smoker Medical History: congestive heart failure, coronary artery disease, hypertension, urinary tract infection Medications Current Medications Sodium Chloride 1,000 ml @ 75 mls/hr [id number] IV Last administered on 11/26/18at 11:42; Admin Dose 75 MLS/HR; Start 11/26/18 at 11:30 Vancomycin HCl (Vanco Iv Per Pharmacy) VANCOMYCIN PER PHARMACY PER PROTOCOL XX ; Start 11/26/18 at 13:00 Norepinephrine 250 ml @ 1.875 mls/ hr TITRATE IV Last administered on 9at 15:09; Admin Dose 3.75 MLS/HR; Start 11/26/18 at 13:30 IV Flush (NS 10 ml) 10 ml Q8 IV ; Start 11/26/18 at 22:00 Vancomycin/Sodium Chloride 250 ml @ 125 mls/hr Q8 IVPB ; Start 11/26/18 at 22:00; Status UNV Coded Allergies: Penicillins (Verified Allergy, Unknown, 07/06/13) morphine (Verified Adverse Reaction, Mild, "LOOPY", 10/08/18) Uncoded Allergies: PLASTIC TAPE (Allergy, Unknown, 04/01/07) Past Surgical History Past Surgical Hx: other (I&D of R hip) Family History Significant Family History: other Social History Alcohol Use: other (unknown) Smoking Status: Never smoker Drug Use: other (unkknown) Exam/Review of Systems Vital Signs Vitals Vital Signs Date Temp Pulse Resp B/P (MAP) Pulse Ox O2 O2 Flow FiO2 Time Delivery Rate 11/26/18 98.9 108 23 81/53 (62) 97 T Tube 8.0 15:58 11/26/18 35 06:21 Exam Constitutional: non-verbal, frail Psych: nl mood/affect Eyes: nl lids, nl sclera ENMT: nl external ears & nose Neck: other (Trach intact) Respiratory: clear to auscultation Cardiovascular: nl pulses, other (ss2) Gastrointestinal: soft Musculoskeletal: joint tenderness, muscle weakness, range of motion Extremities: normal pulses Neurological: confused, unresponsive Skin: other Additional Comments EKG: Rate/Rhythm: Irregular rhythm, tachycardic rate QRS, ST, T-waves: [No changes consistent w/ acute ischemia] Impression: A. fib with RVR Chest X-ray 1V Interpreted by me: Soft Tissue: No acute abnormalities Bones: No acute abnormalities Mediastinum/Cardiac Silhouette/Lungs: [No acute abnormalities] NADEEN CHO Nov 26, 2018 17:12
[2018-12-15 13:39] VITALS: BP 109/55; PULSE 73; RESP 18
--- NOTE | 2018-12-15 15:40 | CONS ---
Consultation Date/Type/Reason Admit Date/Time Nov 26, 2018 at 20:42 Initial Consult Date 11/27/18 Type of Consult Cardiology Requesting Provider: NADEEN CHO Date/Time of Note DATE: 12/15/18 TIME: 15:40 24 HR Interval Summary Free Text/Dictation VS reviewed - stable Exam/Review of Systems Vital Signs Vitals Vital Signs Date Temp Pulse Resp B/P (MAP) Pulse Ox O2 O2 Flow FiO2 Time Delivery Rate 12/15/18 72 18 98 Aerosol 5.0 28 13:56 12/15/18 97.9 109/55 13:39 (73) Intake and Output 12/14/18 12/14/18 12/15/18 1515:00 23:00 07:00 IntakeIntake Total 200 ml 150 ml 1180 ml OutputOutput Total 1000 ml 500 ml BalanceBalance 200 ml -850 ml 680 ml Labs Result Diagram: 12/15/18 0602 12/15/18 0602 Results 24hrs Laboratory Tests Test 12/14/18 18:12 12/15/18 00:21 12/15/18 06:02 12/15/18 06:34 Bedside Glucose 122 167 147 White Blood Count 8.0 Red Blood Count 3.41 L Hemoglobin 8.8 L Hematocrit 28.1 L Mean Corpuscular 82.4 Volume Mean Corpuscular 25.8 L Hemoglobin Mean Corpuscular 31.3 L Hemoglobin Concent Red Cell 17.9 H Distribution Width Platelet Count 327 Mean Platelet Volume 10.5 H Immature 0.600 H Granulocytes % Neutrophils % 70.2 Lymphocytes % 18.3 Monocytes % 5.9 Eosinophils % 3.9 Basophils % 1.1 Nucleated Red Blood 0.0 Cells % Immature 0.050 H Granulocytes # Neutrophils # 5.6 Lymphocytes # 1.5 Monocytes # 0.5 Eosinophils # 0.3 Basophils # 0.1 Nucleated Red Blood 0.0 Cells # Sodium Level 138 Potassium Level 4.8 Chloride Level 104 Carbon Dioxide Level 29 Anion Gap 5 Blood Urea Nitrogen 22 H Creatinine 0.36 L Est Glomerular Filtrat Rate mL/min Glucose Level 135 Calcium Level 9.1 Test 12/15/18 12:45 Bedside Glucose 109 Medications Medications Current Medications IV Flush (NS 10 ml) 10 ml Q8 IV Last administered on 12/14/18at 05:57; Admin Dose 10 ML; Start 11/26/18 at 22:00 Ascorbic Acid (Vitamin C) 500 mg DAILY GTB Last administered on 12/15/18 09:17; Admin Dose 500 MG; Start 11/27/18 at 09:00 Baclofen (Lioresal) 20 mg TID GTB Last administered on 12/15/18 12:47; Admin Dose 20 MG; Start 11/26/18 at 21:00 Cholecalciferol (Vitamin D) 2,000 unit DAILY GTB Last administered on 12/15/18 09:17; Admin Dose 2,000 UNIT; Start 11/27/18 at 09:00 Cyanocobalamin (Vitamin B12) 1,000 mcg DAILY GTB Last administered on 12/15/18 09:17; Admin Dose 1,000 MCG; Start 11/27/18 at 09:00 Miscellaneous Information 1 ea NOTE XX ; Start 11/26/18 at 18:30 Glucose (Glutose) 15 gm Q15M PRN PO DECREASED GLUCOSE; Start 11/26/18 at 18:30 Glucose (Glutose) 22.5 gm Q15M PRN PO DECREASED GLUCOSE; Start 11/26/18 at 18:30 Dextrose (D50w Syringe) 25 ml Q15M PRN IV DECREASED GLUCOSE; Start 11/26/18 at 18:30 Dextrose (D50w Syringe) 50 ml Q15M PRN IV DECREASED GLUCOSE; Start 11/26/18 at 18:30 Glucagon (Glucagen) 1 mg Q15M PRN IM DECREASED GLUCOSE; Start 11/26/18 at 18:30 Glucose (Glutose) 15 gm Q15M PRN BUCCAL DECREASED GLUCOSE; Start 11/26/18 at 18:30 Diagnostic Test (Pha) (Accu-Chek) 1 ea 02 XX Last administered on 12/11/18at 01:49; Admin Dose 1 EA; Start 11/27/18 at 02:00 Lorazepam (Ativan) 1 mg Q2H PRN IV SEIZURES Last administered on 11/29/18 14:39; Admin Dose 1 MG; Start 11/27/18 at 18:00 Aspirin (Aspirin) 81 mg DAILY GTB Last administered on 12/15/18 09:17; Admin Dose 81 MG; Start 11/29/18 at 10:00 Levetiracetam 100 ml @ 400 mls/hr Q12 IVPB Last administered on 12/15/18 09:17; Admin Dose 400 MLS/HR; Start 11/29/18 at 21:00 Acetaminophen (Tylenol Liquid) 650 mg Q4H PRN GTB MILD PAIN(1-3)OR ELEVATED TEMP Last administered on 12/12/18 16:18; Admin Dose 650 MG; Start 12/03/18 at 02:00 Sodium Hypochlorite (Dakin'S (Dilute )) 1 applic BID IRR Last administered on 12/15/18 09:18; Admin Dose 1 APPLIC; Start 12/03/18 at 11:24 Insulin Aspart (Novolog Insulin Pen) NOVOLOG *MILD* ALGORI... Q6 SC Last administered on 12/15/18 06:37; Admin Dose 1 UNIT; Start 12/09/18 at 18:00 Alteplase, Recombinant (Cathflo (Activase)) 2 mg MAY REPEAT X1 PRN CATHETER IF CATHETER REMAINS OCCULUDED Last administered on 12/14/18 21:48; Admin Dose 2 MG; Start 12/09/18 at 23:30 Albuterol/ Ipratropium (Duoneb) 3 ml Q6HWA RESP THERAPY HHN Last administered on 12/15/18 13:56; Admin Dose 3 ML; Start 12/12/18 at 14:00 Albuterol/ Ipratropium (Duoneb) 3 ml Q4H RESP THERAPY PRN HHN SHORTNESS OF BREATH; Start 12/12/18 at 12:30 Ceftazidime 50 ml @ 100 mls/hr Q8 IVPB Last administered on 12/15/18 12:47; Admin Dose 100 MLS/HR; Start 12/12/18 at 18:00 Metronidazole 100 ml @ 100 mls/hr Q8 IVPB Last administered on 12/15/18 14:05; Admin Dose 100 MLS/HR; Start 12/12/18 at 17:00 Collagenase (Santyl) 1 applic DAILY TOP Last administered on 12/15/18 09:17; Admin Dose 1 APPLIC; Start 12/13/18 at 10:30 ZAHIRA RAJAN MD December 15, 2018 15:40
--- NOTE | 2018-12-15 16:16 | CONS ---
[facility] Brenda Willingham Unit Number: [id number] Date of : 1945 Patient Status: Admitted Inpatient Attending Doctor: Nirmal Shannon MD Edit: IRWIN PINA M.D. on 12/16/18 @ 03:22 Silvana: I discussed the management with DECISION SUPPORT ANALYST Benedict and agree Assessment/Plan Assessment/Plan Hospital Course (Demo Recall) # sepsis, endovascular infection, respiratory - recurrent sepsis due to bacteremia and pneumonia +/- wound infection. Procalcitonin was 1.96 on 12/07/2018 - leukocytosis and fever resolved - bacteremia d/t bacteroides fragilis 12/07/2018 possibly d/t intra-abdominal infection - VAP d/t pseudomonas 12/08/2018 and 12/13/2018 - s/p septic shock due to probable UTI - s/p coag negative Staph in blood cultures on 11/26/2018, probable contaminant - colonization of the airway by pseudomonas and corynebacteria on 11/26/2018; MDR pseudomonas in trach aspirate cx from 12/08/2018 likely a colonizer - h/o sepsis due to bacteremia and pneumonia - h/o bacteremia: blood cultures grew enterococcus faecalis on 09/17/2018 secondary to R hip wound infection as its wound culture on 09/16/2018 grew E. faecalis as well - h/o recurrent acute on chronic hypoxemic respiratory failure secondary to secretion retention, mucous plugging, major left lung atelectasis, severe shunting - h/o probable aspiration pneumonia. - h/o pneumonia due to pseudomonas on 09/30/2018. s/p Levaquin (10/03/18- 10/07/2018), Meropenem (restart 09/30/2018-10/03/18, 10/12/18 - 10/19/2018) and empiric Amikacin (09/30/18-10/03/18) - H/o intubation on 09/30/2018 - H/o tracheostomy on 10/04/2018 - h/o pseudomonas in urine culture on 09/17/2018 with mild pyuria; treated with Cefepime (09/20/2018-09/25/2018) # infection of wound, OM of R hip, pressure ulcer - colonization of the wound of R hip by pseudomonas (wound culture on 10/31/2018), acinetobacter (wound culture on 11/27/2018) - h/o repeat debridement at [facility] on 11/03/[address]. [address] Pierson, her plastic surgeon at [facility], the wound appeared clean during the I&D (my conversation with him on 11/06/2018) - H/o stage sacral decubitus ulcer extending to bilateral buttocks. She reportedly had total hip dislocation and exposed femoral head. CT pelvis showed e/o OM. Pt complete IV vancomycin (09/17/2018-10/29/2018) for sacral OM associated with E. faecalis - H/o sharp excisional debridement down to and including bone of the sacrum on 08/22/2018 and 09/19/2018 - H/o excision of R hip ulcer, girdlestone resection arthroplasty and flap reconstruction 09/23/2018. The surgical pathology showed osteomyelitis of R hip bone, soft tissue cellulitis, and bony margin of excision was free of the disease - according to Dr. Pierson who performed the wound debridement, Pt needs wound care until granulation tissue builds and infection is cleared. Then he would decide if Pt should get repeat closure or not - XR of R hip on 11/09/2009 showed the remaining R femoral shaft in transverse orientation and with lateral deviation - h/o removal of devitalized/necrotic tissue by Dr. Pierson on 10/07/2018 # renal/ - funguria, recurrent; Pt completed 3 day course of fluconazole (12/04-12/06/2018). Ramires was changed on 12/04/2018. - hematuria on 11/26/2018 - h/o moderate L hydronephrosis per renal US # heme, neuro - h/o acute on chronic anemia requiring PRBC - chronic metabolic encephalopathy - supranuclear palsy # endo, cardiac - diabetes mellitus - A fib with RVR - chronic diastolic HF (EF 40-45% with grade 1 DD per 2D Echo 10/24/2018) - h/o hypertension # allergy - penicillin allergy (throat swelling) but Pt tolerates cefepime, ceftazidime, meropenem Recommendations: - Continue Ceftazidime (12/12/2018 - ); s/p joes (restart 12/07-12/12/2018) and vancomycin (12/07-12/14/2018) - Continue Flagyl IV (for possible intra abdominal infection in result of blood cxs +Bacteroides fragilis) - Ordered KUB to r/o colonic obstruction in light of anaerobic bacteremia - Pending: blood cx (NGTD), urine cx (NGTD) - Pt completed 3 day course of fluconazole (12/04-12/06/2018). Ramires was changed on 12/04/2018 Management d/w JAY Recio and with Dr. Pina Consultation Date/Type/Reason Admit Date/Time Nov 26, 2018 at 20:42 Initial Consult Date 11/27/18 Type of Consult Infectious Disease Requesting Provider: NADEEN CHO Date/Time of Note DATE: 12/15/18 TIME: 16:16 24 HR Interval Summary Free Text/Dictation Chart reviewed. Blood and urine cx shows NGTD. Trach asp cx grew MDR pseudomonas again. Remains afebrile with normal WBC. No acute issues per d/w nursing. Exam/Review of Systems Exam Vitals Vital Signs Date Temp Pulse Resp B/P (MAP) Pulse Ox O2 O2 Flow FiO2 Time Delivery Rate 12/15/18 72 18 98 Aerosol 5.0 28 13:56 12/15/18 97.9 109/55 13:39 (73) Intake and Output 12/14/18 12/14/18 12/15/18 1414:59 22:59 06:59 IntakeIntake Total 200 ml 150 ml 1180 ml OutputOutput Total 1000 ml 500 ml BalanceBalance 200 ml -850 ml 680 ml Exam Constitutional: well developed, non-verbal, frail, other (chronically debilitated, getting wound photos taken and being cleaned up by 2 RN's) Psych: other (unable to assess) Head: normocephalic, atraumatic Eyes: nl conjunctiva, nl lids, nl sclera ENMT: nl external ears & nose, nl nasal mucosa & septum, mucosa pink and moist (no thrush) Neck: other (trach with T-piece) Respiratory: normal air movement, diminished breath sounds, other (coarse breath sounds bilaterally; On T-piece via trach) Cardiovascular: regular rate and rhythm, nl pulses Gastrointestinal: soft, non-tender, other (+G-tube c/d/i; brown pasty stool is being cleaned up by RN) Genitourinary - Female: other (+Ramires) Musculoskeletal: other (large wound on R hip with dressing c/d/i) Extremities: normal pulses, other (contractures to all 4 extremities); No edema Neurological: unresponsive (obtunded) Skin: nl turgor, other (wounds - reviewed nursing notes and photos in chart); No rash or lesions Results Result Diagram: 12/15/18 0602 12/15/18 0602 Results 24hrs Laboratory Tests Test 12/14/18 18:12 12/15/18 00:21 12/15/18 06:02 12/15/18 06:34 Bedside Glucose 122 167 147 White Blood Count 8.0 Red Blood Count 3.41 L Hemoglobin 8.8 L Hematocrit 28.1 L Mean Corpuscular 82.4 Volume Mean Corpuscular 25.8 L Hemoglobin Mean Corpuscular 31.3 L Hemoglobin Concent Red Cell 17.9 H Distribution Width Platelet Count 327 Mean Platelet Volume 10.5 H Immature 0.600 H Granulocytes % Neutrophils % 70.2 Lymphocytes % 18.3 Monocytes % 5.9 Eosinophils % 3.9 Basophils % 1.1 Nucleated Red Blood 0.0 Cells % Immature 0.050 H Granulocytes # Neutrophils # 5.6 Lymphocytes # 1.5 Monocytes # 0.5 Eosinophils # 0.3 Basophils # 0.1 Nucleated Red Blood 0.0 Cells # Sodium Level 138 Potassium Level 4.8 Chloride Level 104 Carbon Dioxide Level 29 Anion Gap 5 Blood Urea Nitrogen 22 H Creatinine 0.36 L Est Glomerular Filtrat Rate mL/min Glucose Level 135 Calcium Level 9.1 Test 12/15/18 12:45 Bedside Glucose 109 Imaging Imaging CXR 12/13/2018: Diffuse interstitial and airspace opacities throughout the lungs are increased since the prior examination and represent pulmonary edema or multifocal infection. Medications Medication Current Medications IV Flush (NS 10 ml) 10 ml Q8 IV Last administered on 12/14/18at 05:57; Admin Dose 10 ML; Start 11/26/18 at 22:00 Ascorbic Acid (Vitamin C) 500 mg DAILY GTB Last administered on 12/15/18 09:17; Admin Dose 500 MG; Start 11/27/18 at 09:00 Baclofen (Lioresal) 20 mg TID GTB Last administered on 12/15/18at 12:47; Admin Dose 20 MG; Start 11/26/18 at 21:00 Cholecalciferol (Vitamin D) 2,000 unit DAILY GTB Last administered on 12/15/18 09:17; Admin Dose 2,000 UNIT; Start 11/27/18 at 09:00 Cyanocobalamin (Vitamin B12) 1,000 mcg DAILY GTB Last administered on 12/15/18 09:17; Admin Dose 1,000 MCG; Start 11/27/18 at 09:00 Miscellaneous Information 1 ea NOTE XX ; Start 11/26/18 at 18:30 Glucose (Glutose) 15 gm Q15M PRN PO DECREASED GLUCOSE; Start 11/26/18 at 18:30 Glucose (Glutose) 22.5 gm Q15M PRN PO DECREASED GLUCOSE; Start 11/26/18 at 18:3 0 Dextrose (D50w Syringe) 25 ml Q15M PRN IV DECREASED GLUCOSE; Start 11/26/18 at 18:30 Dextrose (D50w Syringe) 50 ml Q15M PRN IV DECREASED GLUCOSE; Start 11/26/18 at 18:30 Glucagon (Glucagen) 1 mg Q15M PRN IM DECREASED GLUCOSE; Start 11/26/18 at 18:30 Glucose (Glutose) 15 gm Q15M PRN BUCCAL DECREASED GLUCOSE; Start 11/26/18 at 18:30 Diagnostic Test (Pha) (Accu-Chek) 1 ea 02 XX Last administered on 12/11/18at 01:49; Admin Dose 1 EA; Start 11/27/18 at 02:00 Lorazepam (Ativan) 1 mg Q2H PRN IV SEIZURES Last administered on 11/29/18at 14:39; Admin Dose 1 MG; Start 11/27/18 at 18:00 Aspirin (Aspirin) 81 mg DAILY GTB Last administered on 12/15/18 09:17; Admin Dose 81 MG; Start 11/29/18 at 10:00 Levetiracetam 100 ml @ 400 mls/hr Q12 IVPB Last administered on 12/15/18 09:17; Admin Dose 400 MLS/HR; Start 11/29/18 at 21:00 Acetaminophen (Tylenol Liquid) 650 mg Q4H PRN GTB MILD PAIN(1-3)OR ELEVATED TEMP Last administered on 12/12/18 16:18; Admin Dose 650 MG; Start 12/03/18 at 02:00 Sodium Hypochlorite (Dakin'S (Dilute )) 1 applic BID IRR Last administered on 12/15/18 09:18; Admin Dose 1 APPLIC; Start 12/03/18 at 11:24 Insulin Aspart (Novolog Insulin Pen) NOVOLOG *MILD* ALGORI... Q6 SC Last administered on 12/15/18 06:37; Admin Dose 1 UNIT; Start 12/09/18 at 18:00 Alteplase, Recombinant (Cathflo (Activase)) 2 mg MAY REPEAT X1 PRN CATHETER IF CATHETER REMAINS OCCULUDED Last administered on 12/14/18 21:48; Admin Dose 2 MG; Start 12/09/18 at 23:30 Albuterol/ Ipratropium (Duoneb) 3 ml Q6HWA RESP THERAPY HHN Last administered on 12/15/18 13:56; Admin Dose 3 ML; Start 12/12/18 at 14:00 Albuterol/ Ipratropium (Duoneb) 3 ml Q4H RESP THERAPY PRN HHN SHORTNESS OF BREATH; Start 12/12/18 at 12:30 Ceftazidime 50 ml @ 100 mls/hr Q8 IVPB Last administered on 12/15/18 12:47; Admin Dose 100 MLS/HR; Start 12/12/18 at 18:00 Metronidazole 100 ml @ 100 mls/hr Q8 IVPB Last administered on 12/15/18 14:05; Admin Dose 100 MLS/HR; Start 12/12/18 at 17:00 Collagenase (Santyl) 1 applic DAILY TOP Last administered on 12/15/18 09:17; Admin Dose 1 APPLIC; Start 12/13/18 at 10:30 CONOR CHAND NP December 15, 2018 16:16
[2018-12-15 20:00] VITALS: BP 101/55; PULSE 65; RESP 18
[2018-12-16] MEDS: ACCU-CHEK XX SCH (01:41)
[2018-12-16 02:00] VITALS: BP 95/57; PULSE 85; RESP 18
[2018-12-16] MEDS: CEFTAZIDIME 1GM/50 ML (PMX) 50 ML IVPB SCH ×3 (05:24→23:23)
[2018-12-16] MEDS: INSULIN ASPART [NOVOLOG] 3 ML PEN SC SCH ×4 (05:48→23:31)
[2018-12-16] MEDS: metroNIDAZOLE 500 MG/NS (PMX) 100 ML IVPB SCH ×3 (06:02→23:58)
[2018-12-16 07:49] VITALS: BP 114/54; PULSE 72; RESP 18
[2018-12-16] MEDS: ALBUTEROL/IPRATROPIUM (NEB) 3 ML AMP HHN SCH ×3 (07:58→20:09)
--- NOTE | 2018-12-16 09:34 | CONS ---
Consult Date/Type/Reason Admit Date/Time Nov 26, 2018 at 20:42 Initial Consult Date 11/27/18 Type of Consultation: Pulm Requesting Provider: NADEEN CHO Date/Time of Note DATE: 12/16/18 TIME: 09:33 Subjective NO acute events -pt comfortable - in good fluid status - no CP noted now per nurse - euvolemic. ROS: No fever, no chills, no nausea, no vomiting, no diarrhea/constipation - per nurse Objective Vitals Vital Signs Date Temp Pulse Resp B/P (MAP) Pulse Ox O2 O2 Flow FiO2 Time Delivery Rate 12/16/18 71 18 98 Aerosol 5.0 28 05:36 T Tube 12/16/18 98.6 95/57 (70) 02:00 Intake and Output 12/15/18 12/15/18 12/16/18 1515:00 23:00 07:00 IntakeIntake Total 150 ml 1130 ml 1030 ml OutputOutput Total 700 ml 200 ml 800 ml BalanceBalance -550 ml 930 ml 230 ml Exam General: WN/WD/NAD, AOx 0 HEENT: Unicetric/atraumatic/EOMI (does not follow commands) NECK: Tx Lymph: no lymphadenopathy HEART: regular with no S3, II/ systolic murmur at apex LUNGS: Coarse sounds ABD: soft, NT, ND, +BS PEG : Intact Neuro: contracted SKIN: chronic changes EXT: trace edema Results/Medications Result Diagram: 12/15/18 0602 12/15/18 0602 Results 24 hrs Laboratory Tests Test 12/15/18 12:45 12/15/18 17:40 12/15/18 23:38 12/16/18 05:47 Bedside Glucose 109 125 173 136 Home Meds Reported Medications Ondansetron Hcl* (Ondansetron Hcl*) 4 Mg Tablet, 4 MG PO Q6H PRN for n/v, TAB 11/26/18 Ascorbic Acid* (Vitamin C*) 500 Mg Capsule.sa, 500 MG GTB DAILY, CAP 11/26/18 Acetaminophen* (Acetaminophen*) 325 Mg Tablet, 650 MG GTB Q4H PRN for PAIN AND OR ELEVATED TEMP, #30 TAB 11/26/18 Sertraline Hcl* (Sertraline Hcl*) 50 Mg Tablet, 50 MG GTB DAILY, #30 TAB 11/26/18 Protein Supplement (Promod) 946 Ml Liquid, 30 ML GTB for supplement 11/26/18 Lansoprazole* (Lansoprazole*) 30 Mg Capsule.dr, 30 MG GTB BID, CAP 11/26/18 Hydrocodone/Acetaminophen ([place] 5-325 Tablet) 1 Each Tablet, 1 EACH GTB Q4H PRN for PAIN, TAB 11/26/18 Polyethylene Glycol* (Miralax*) 17 Gm Powd.pack, 17 GM GTB BID, #60 PACKET 11/26/18 Metoprolol Tartrate* (Lopressor*) 25 Mg Tab, 25 MG GTB BID, #60 TAB 11/26/18 Lisinopril* (Lisinopril*) 5 Mg Tablet, 5 MG GTB DAILY, #30 TAB 11/26/18 Insulin Aspart* (Novolog Insulin Pen*) 100 Unit/Ml Soln, 0 SC .SLIDING SCALE AC, EA INJECT PER SLIDING SCALE; IF 70-150=0unit; 151-200= 2units; 201-250=4units; 251-300=6units; 301-350=8units; 351-400=10units and Call MD, Subcutaneously before meals and at bedtime fo DM. 11/26/18 Insulin Glargine* (Lantus*) 100 Unit/Ml Soln, 5 UNIT SC QHS, #1 VIAL [id number] SQ AT BEDTIME FOR TYPE 2DIABETES MELLITUS WITHOUT COMPLICATIONS 11/26/18 Levetiracetam* (Keppra*) 500 Mg/5 Ml Solution, 100 MG GTB BID for SEIZURE for 30 Days, BOTTLE 11/26/18 Ipratropium-Albuterol (Ipratropium-Albuterol) 0.5-3 Mg/3 Ml Ampul.neb, 3 ML INHALATION Q6, #30 VIAL 11/26/18 Ferrous Sulfate* (Ferrous Sulfate*) 220 Mg/5 Ml Solution, 330 MG PO BID, ML 11/26/18 Epoetin Haroon (Epogen) 10,000 Units/Ml Soln, 22998 UNITS SC QWED for ANEMIA, VIAL 11/26/18 Cyanocobalamin* (Vitamin B-12*) 1,000 Mcg Tablet.sa, 1000 MCG GTB DAILY, TAB 11/26/18 Clonazepam* (Clonazepam*) 0.5 Mg Tablet, 0.5 MG GTB BID, TAB 11/26/18 Cholecalciferol (Vitamin D3) (VITAMIN D-3) 2,000 Unit Capsule, 2000 UNIT GTB DAILY, CAP 11/26/18 Baclofen* (Baclofen*) 10 Mg Tablet, 20 MG GTB TID for MUSCLE SPASM, TAB 11/26/18 Aspirin* (Aspirin* EC) 81 Mg Tablet.dr, 81 MG GTB DAILY, TAB 11/26/18 Amiodarone Hcl* (Amiodarone Hcl*) 200 Mg Tablet, 200 MG GTB BID for ARRHYTMIA, #60 TAB 11/26/18 Zolpidem Tartrate* (Zolpidem Tartrate*) 5 Mg Tablet, 5 MG GTB QHS PRN for INSOMNIA, #30 TAB 11/26/18 Acidophilus-Bulgaricus* (BD Lactinex*) 1 Pkt Packet, 1 PKT GTB BID, PACKET 11/26/18 Zinc Sulfate* (Zinc Sulfate*) 220 Mg Tablet, 220 MG GTB DAILY for 30 Days, #30 TAKE 1 CAPSULE VIA G-TUBE EVERY DAY 11/26/18 Estrogens Conjugated* (Premarin*) 0.45 Mg Tablet, 1.5 MG PO DAILY 02/18/13 Medications Current Medications IV Flush (NS 10 ml) 10 ml Q8 IV Last administered on 12/16/18at 05:48; Admin Dose 10 ML; Start 11/26/18 at 22:00 Ascorbic Acid (Vitamin C) 500 mg DAILY GTB Last administered on 12/15/18at 09:1 7; Admin Dose 500 MG; Start 11/27/18 at 09:00 Baclofen (Lioresal) 20 mg TID GTB Last administered on 12/15/18at 20:33; Admin Dose 20 MG; Start 11/26/18 at 21:00 Cholecalciferol (Vitamin D) 2,000 unit DAILY GTB Last administered on 12/15/18at 09:17; Admin Dose 2,000 UNIT; Start 11/27/18 at 09:00 Cyanocobalamin (Vitamin B12) 1,000 mcg DAILY GTB Last administered on 12/15/18at 09:17; Admin Dose 1,000 MCG; Start 11/27/18 at 09:00 Miscellaneous Information 1 ea NOTE XX ; Start 11/26/18 at 18:30 Glucose (Glutose) 15 gm Q15M PRN PO DECREASED GLUCOSE; Start 11/26/18 at 18:30 Glucose (Glutose) 22.5 gm Q15M PRN PO DECREASED GLUCOSE; Start 11/26/18 at 18:30 Dextrose (D50w Syringe) 25 ml Q15M PRN IV DECREASED GLUCOSE; Start 11/26/18 at 18:30 Dextrose (D50w Syringe) 50 ml Q15M PRN IV DECREASED GLUCOSE; Start 11/26/18 at 18:30 Glucagon (Glucagen) 1 mg Q15M PRN IM DECREASED GLUCOSE; Start 11/26/18 at 18:30 Glucose (Glutose) 15 gm Q15M PRN BUCCAL DECREASED GLUCOSE; Start 11/26/18 at 18:30 Diagnostic Test (Pha) (Accu-Chek) 1 ea 02 XX Last administered on 12/11/18 01:49; Admin Dose 1 EA; Start 11/27/18 at 02:00 Lorazepam (Ativan) 1 mg Q2H PRN IV SEIZURES Last administered on 11/29/18 14:39; Admin Dose 1 MG; Start 11/27/18 at 18:00 Aspirin (Aspirin) 81 mg DAILY GTB Last administered on 12/15/18 09:17; Admin Dose 81 MG; Start 11/29/18 at 10:00 Levetiracetam 100 ml @ 400 mls/hr Q12 IVPB Last administered on 12/15/18 20:34; Admin Dose 400 MLS/HR; Start 11/29/18 at 21:00 Acetaminophen (Tylenol Liquid) 650 mg Q4H PRN GTB MILD PAIN(1-3)OR ELEVATED TEMP Last administered on 12/12/18 16:18; Admin Dose 650 MG; Start 12/03/18 at 02:00 Sodium Hypochlorite (Dakin'S (Dilute )) 1 applic BID IRR Last administered on 12/15/18 20:34; Admin Dose 1 APPLIC; Start 12/03/18 at 11:24 Insulin Aspart (Novolog Insulin Pen) NOVOLOG *MILD* ALGORI... Q6 SC Last administered on 12/15/18 23:42; Admin Dose 1 UNIT; Start 12/09/18 at 18:00 Alteplase, Recombinant (Cathflo (Activase)) 2 mg MAY REPEAT X1 PRN CATHETER IF CATHETER REMAINS OCCULUDED Last administered on 12/14/18 21:48; Admin Dose 2 MG; Start 12/09/18 at 23:30 Albuterol/ Ipratropium (Duoneb) 3 ml Q6HWA RESP THERAPY HHN Last administered on 12/16/18 07:58; Admin Dose 3 ML; Start 12/12/18 at 14:00 Albuterol/ Ipratropium (Duoneb) 3 ml Q4H RESP THERAPY PRN HHN SHORTNESS OF BREATH Last administered on 12/15/18 19:48; Admin Dose 3 ML; Start 12/12/18 at 12:30 Ceftazidime 50 ml @ 100 mls/hr Q8 IVPB Last administered on 12/16/18 05:24; Admin Dose 100 MLS/HR; Start 12/12/18 at 18:00 Metronidazole 100 ml @ 100 mls/hr Q8 IVPB Last administered on 12/16/18 06:02; Admin Dose 100 MLS/HR; Start 12/12/18 at 17:00 Collagenase (Santyl) 1 applic DAILY TOP Last administered on 12/15/18 09:17; Admin Dose 1 APPLIC; Start 12/13/18 at 10:30 Assessment/Plan Hospital Course (Demo Recall) 1. Atrial fibrillation/atrial flutter with rapid ventricular response - now in SR - treated - will follow. Remains in sinus now. RATE CONTROLLED. Off tele now. 2. Hypotension/shock state, likely septic - better now. .BP well controlled now. In good range now. BP better. 3. History of cardiomyopathy with mildly depressed left ventricular ejection fraction approximately 40% to 45%. Keep euvolemic. Chronic. NO intervention needed. 4. History of congestive heart failure, systolic, chronic. 5. Possible pneumonia - on meds, con't anti-bx. NO new fevers. 6. Sepsis- treated, better now -no fevers. Imprved. 7. Leukocytosis. 8. Anemia requiring transfusions- no active bleed now. Treated. 9. Hypernatremia. 10. Coagulopathy. 11. Urinary tract infection. ZAHIRA RAJAN MD December 16, 2018 09:34
[2018-12-16] MEDS: COLLAGENASE 5 GM (UD JAR) TOP SCH (09:52)
[2018-12-16] MEDS: CYANOCOBALAMIN 500 MCG TAB GTB SCH (09:52)
[2018-12-16] MEDS: ASPIRIN 81 MG TAB GTB SCH (09:52)
[2018-12-16] MEDS: ASCORBIC ACID 500 MG TAB GTB SCH (09:52)
[2018-12-16] MEDS: CHOLECALCIFEROL 2,000 UNIT CAP GTB SCH (09:52)
[2018-12-16] MEDS: SODIUM HYPOCHLORITE (1/40) 1 LITER BTL IRR SCH ×2 (09:52→22:51)
[2018-12-16] MEDS: BACLOFEN 10 MG TAB GTB SCH ×3 (09:52→22:45)
[2018-12-16] MEDS: BALSAM PERU/CASTOR OIL 60 GM TUBE TOP SCH (09:53)
[2018-12-16] MEDS: LEVETIRACETAM 1000 MG (PMX) 100 ML IVPB SCH ×2 (09:58→22:45)
--- NOTE | 2018-12-16 13:04 | CONS ---
Assessment/Plan Assessment/Plan Hospital Course (Demo Recall) # sepsis, endovascular infection, respiratory - recurrent sepsis due to bacteremia and pneumonia +/- wound infection. Procalcitonin was 1.96 on 12/07/2018 - leukocytosis and fever resolved - bacteremia d/t bacteroides fragilis 12/07/2018 possibly d/t intra-abdominal infection - VAP d/t pseudomonas 12/08/2018 and 12/13/2018 - s/p septic shock due to probable UTI - s/p coag negative Staph in blood cultures on 11/26/2018, probable contaminant - colonization of the airway by pseudomonas and corynebacteria on 11/26/2018; MDR pseudomonas in trach aspirate cx from 12/08/2018 likely a colonizer - h/o sepsis due to bacteremia and pneumonia - h/o bacteremia: blood cultures grew enterococcus faecalis on 09/17/2018 secondary to R hip wound infection as its wound culture on 09/16/2018 grew E. faecalis as well - h/o recurrent acute on chronic hypoxemic respiratory failure secondary to secretion retention, mucous plugging, major left lung atelectasis, severe shunting - h/o probable aspiration pneumonia. - h/o pneumonia due to pseudomonas on 09/30/2018. s/p Levaquin (10/03/18- 10/07/2018), Meropenem (restart 09/30/2018-10/03/18, 10/12/18 - 10/19/2018) and empiric Amikacin (09/30/18-10/03/18) - H/o intubation on 09/30/2018 - H/o tracheostomy on 10/04/2018 - h/o pseudomonas in urine culture on 09/17/2018 with mild pyuria; treated with Cefepime (09/20/2018-09/25/2018) # infection of wound, OM of R hip, pressure ulcer - colonization of the wound of R hip by pseudomonas (wound culture on 10/31/2018), acinetobacter (wound culture on 11/27/2018) - h/o repeat debridement at [facility] on 11/03/[address]. [address] Pierson, her plastic surgeon at [facility], the wound appeared clean during the I&D (my conversation with him on 11/06/2018) - H/o stage sacral decubitus ulcer extending to bilateral buttocks. She reportedly had total hip dislocation and exposed femoral head. CT pelvis showed e/o OM. Pt complete IV vancomycin (09/17/2018-10/29/2018) for sacral OM associated with E. faecalis - H/o sharp excisional debridement down to and including bone of the sacrum on 08/22/2018 and 09/19/2018 - H/o excision of R hip ulcer, girdlestone resection arthroplasty and flap reconstruction 09/23/2018. The surgical pathology showed osteomyelitis of R hip bone, soft tissue cellulitis, and bony margin of excision was free of the diseas e - according to Dr. Pierson who performed the wound debridement, Pt needs wound care until granulation tissue builds and infection is cleared. Then he would decide if Pt should get repeat closure or not - XR of R hip on 11/09/2009 showed the remaining R femoral shaft in transverse orientation and with lateral deviation - h/o removal of devitalized/necrotic tissue by Dr. Pierson on 10/07/2018 # renal/ - funguria, recurrent; Pt completed 3 day course of fluconazole (12/04-12/06/2018). Ramires was changed on 12/04/2018. - hematuria on 11/26/2018 - h/o moderate L hydronephrosis per renal US # heme, neuro - h/o acute on chronic anemia requiring PRBC - chronic metabolic encephalopathy - supranuclear palsy # endo, cardiac - diabetes mellitus - A fib with RVR - chronic diastolic HF (EF 40-45% with grade 1 DD per 2D Echo 10/24/2018) - h/o hypertension # allergy - penicillin allergy (throat swelling) but Pt tolerates cefepime, ceftazidime, meropenem Recommendations: - Continue Ceftazidime (12/12/2018 - ); s/p jose (restart 12/07-12/12/2018) and vancomycin (12/07-12/14/2018) - Continue Flagyl IV (for possible intra abdominal infection in result of blood cxs +Bacteroides fragilis) - Consider CT abdomen pelvis to determine if colonic perf if full aggressive care desired - serial procalc periodically prior to abx cessation - Pending: blood cx (NGTD), urine cx (NGTD) - Pt completed 3 day course of fluconazole (12/04-12/06/2018). Ramires was changed on 12/04/2018 Consultation Date/Type/Reason Admit Date/Time Nov 26, 2018 at 20:42 Initial Consult Date 11/27/18 Requesting Provider: NADEEN CHO Date/Time of Note DATE: 12/16/18 TIME: 13:03 Exam/Review of Systems Exam Vitals Vital Signs Date Temp Pulse Resp B/P (MAP) Pulse Ox O2 O2 Flow FiO2 Time Delivery Rate 12/16/18 98.5 72 18 114/54 99 07:49 (74) 12/16/18 Aerosol 5.0 28 05:36 T Tube Intake and Output 12/15/18 12/15/18 12/16/18 1515:00 23:00 07:00 IntakeIntake Total 150 ml 1130 ml 1030 ml OutputOutput Total 700 ml 200 ml 800 ml BalanceBalance -550 ml 930 ml 230 ml Results Result Diagram: 12/15/18 0602 12/15/18 0602 Results 24hrs Laboratory Tests Test 12/15/18 17:40 12/15/18 23:38 12/16/18 05:47 Bedside Glucose 125 173 136 Medications Medication Current Medications IV Flush (NS 10 ml) 10 ml Q8 IV Last administered on 12/16/18at 05:48; Admin Dose 10 ML; Start 11/26/18 at 22:00 Ascorbic Acid (Vitamin C) 500 mg DAILY GTB Last administered on 12/16/18at 09:52; Admin Dose 500 MG; Start 11/27/18 at 09:00 Baclofen (Lioresal) 20 mg TID GTB Last administered on 12/16/18at 09:52; Admin Dose 20 MG; Start 11/26/18 at 21:00 Cholecalciferol (Vitamin D) 2,000 unit DAILY GTB Last administered on 12/16/18at 09:52; Admin Dose 2,000 UNIT; Start 11/27/18 at 09:00 Cyanocobalamin (Vitamin B12) 1,000 mcg DAILY GTB Last administered on 12/16/18at 09:52; Admin Dose 1,000 MCG; Start 11/27/18 at 09:00 Miscellaneous Information 1 ea NOTE XX ; Start 11/26/18 at 18:30 Glucose (Glutose) 15 gm Q15M PRN PO DECREASED GLUCOSE; Start 11/26/18 at 18:30 Glucose (Glutose) 22.5 gm Q15M PRN PO DECREASED GLUCOSE; Start 11/26/18 at 18:30 Dextrose (D50w Syringe) 25 ml Q15M PRN IV DECREASED GLUCOSE; Start 11/26/18 at 18:30 Dextrose (D50w Syringe) 50 ml Q15M PRN IV DECREASED GLUCOSE; Start 11/26/18 at 18:30 Glucagon (Glucagen) 1 mg Q15M PRN IM DECREASED GLUCOSE; Start 11/26/18 at 18:30 Glucose (Glutose) 15 gm Q15M PRN BUCCAL DECREASED GLUCOSE; Start 11/26/18 at 18:30 Diagnostic Test (Pha) (Accu-Chek) 1 ea 02 XX Last administered on 12/11/18 01:49; Admin Dose 1 EA; Start 11/27/18 at 02:00 Lorazepam (Ativan) 1 mg Q2H PRN IV SEIZURES Last administered on 11/29/18 14:39; Admin Dose 1 MG; Start 11/27/18 at 18:00 Aspirin (Aspirin) 81 mg DAILY GTB Last administered on 12/16/18 09:52; Admin Dose 81 MG; Start 11/29/18 at 10:00 Levetiracetam 100 ml @ 400 mls/hr Q12 IVPB Last administered on 12/16/18 09:58; Admin Dose 400 MLS/HR; Start 11/29/18 at 21:00 Acetaminophen (Tylenol Liquid) 650 mg Q4H PRN GTB MILD PAIN(1-3)OR ELEVATED TEMP Last administered on 12/12/18 16:18; Admin Dose 650 MG; Start 12/03/18 at 02:00 Sodium Hypochlorite (Dakin'S (Dilute )) 1 applic BID IRR Last administered on 12/16/18 09:52; Admin Dose 1 APPLIC; Start 12/03/18 at 11:24 Insulin Aspart (Novolog Insulin Pen) NOVOLOG *MILD* ALGORI... Q6 SC Last administered on 12/15/18 23:42; Admin Dose 1 UNIT; Start 12/09/18 at 18:00 Alteplase, Recombinant (Cathflo (Activase)) 2 mg MAY REPEAT X1 PRN CATHETER IF CATHETER REMAINS OCCULUDED Last administered on 12/14/18 21:48; Admin Dose 2 MG; Start 12/09/18 at 23:30 Albuterol/ Ipratropium (Duoneb) 3 ml Q6HWA RESP THERAPY HHN Last administered on 12/16/18 07:58; Admin Dose 3 ML; Start 12/12/18 at 14:00 Albuterol/ Ipratropium (Duoneb) 3 ml Q4H RESP THERAPY PRN HHN SHORTNESS OF BREATH Last administered on 12/15/18 19:48; Admin Dose 3 ML; Start 12/12/18 at 12:30 Ceftazidime 50 ml @ 100 mls/hr Q8 IVPB Last administered on 12/16/18 05:24; Admin Dose 100 MLS/HR; Start 12/12/18 at 18:00 Metronidazole 100 ml @ 100 mls/hr Q8 IVPB Last administered on 12/16/18 06:02; Admin Dose 100 MLS/HR; Start 12/12/18 at 17:00 Collagenase (Santyl) 1 applic DAILY TOP Last administered on 12/16/18 09:52; Admin Dose 1 APPLIC; Start 12/13/18 at 10:30 KASH MONDRAGON MD December 16, 2018 13:04
[2018-12-16 14:20] VITALS: BP 113/57; PULSE 98; RESP 18
--- NOTE | 2018-12-16 17:06 | PN ---
Date/Time of Note Date/Time of Note DATE: 12/16/18 TIME: 17:03 Assessment/Plan VTE Prophylaxis Risk score (from Ns)>0 risk: 3 SCD applied (from Nsg): Yes Pharmacological prophylaxis: other Lines/Catheters IV Catheter Type (from Nrsg): Saline Lock Urinary Cath still in place: Yes Reason Cath still needed: urinary retention Assessment/Plan Hospital Course Patient continues on cool aerosol mist, stable vital signs no change in neuro status. Patient is on multiple antibiotics, for IV excess, pending PICC line insertion, Assessment/Plan -Sepsis with gram-negative rods bacteremia and wound infection, continue antibiotics per ID. Dr. Owens is following in infection disease consultation. -Pseudomonal colonization of respiratory tract -New onset of seizures, continue Keppra. Dr. Sherman is following a neurology consultation. -Atrial fibrillation/ flutter with rapid ventricular response. Patient is currently in sinus rhythm. Dr. Monson is following in cardiology consultation. -Respiratory failure with tracheostomy -Progressive supranuclear palsy -Chronic encephalopathy -Decubitus ulcer of the right hip and sacrum, status post Girdlestone procedure of the right hip with flap in September 2018, followed by removal of necrotic t issue by Dr. Triplett at [facility]. -Right hip wound infection with OM of R hip, completed treatment with antibiotics. -Wound dehiscence, s/p repeat debridement at [facility] on 11/03/2018. -Diabetes -Chronic diastolic CHF -Dysphagia with GT -Anemia of chronic disease -Failure to thrive, Dr. Prieto is following in palliative care consultation. Further recommendations based on clinical course. Plan of care discussed with Dr. Shannon Result Diagram: 12/15/18 0602 12/15/18 0602 Results 24hrs Laboratory Tests Test 12/15/18 17:40 12/15/18 23:38 12/16/18 05:47 12/16/18 13:06 Bedside Glucose 125 173 136 134 Exam/Review of Systems Exam Vitals Vital Signs Date Temp Pulse Resp B/P (MAP) Pulse Ox O2 O2 Flow FiO2 Time Delivery Rate 12/16/18 79 20 96 Aerosol 5.0 28 14:27 T Tube 12/16/18 98.7 113/57 14:20 (75) Intake and Output 12/15/18 12/15/18 12/16/18 1515:00 23:00 07:00 IntakeIntake Total 150 ml 1130 ml 1030 ml OutputOutput Total 700 ml 200 ml 800 ml BalanceBalance -550 ml 930 ml 230 ml Exam Constitutional: non-verbal, frail Neck: other (Tracheostomy) Respiratory: diminished breath sounds Cardiovascular: nl pulse Gastrointestinal: soft, non-tender, other (G-tube) Extremities: other (Contracted) Neurological: unresponsive Skin: other (Sacral and right hip wounds) Results Results 24hrs Laboratory Tests Test 12/15/18 17:40 12/15/18 23:38 12/16/18 05:47 12/16/18 13:06 Bedside Glucose 125 173 136 134 Medications Medication Current Medications IV Flush (NS 10 ml) 10 ml Q8 IV Last administered on 12/16/18 14:28; Admin Dose 10 ML; Start 11/26/18 at 22:00 Ascorbic Acid (Vitamin C) 500 mg DAILY GTB Last administered on 12/16/18 09:52; Admin Dose 500 MG; Start 11/27/18 at 09:00 Baclofen (Lioresal) 20 mg TID GTB Last administered on 12/16/18 13:34; Admin Dose 20 MG; Start 11/26/18 at 21:00 Cholecalciferol (Vitamin D) 2,000 unit DAILY GTB Last administered on 12/16/18 09:52; Admin Dose 2,000 UNIT; Start 11/27/18 at 09:00 Cyanocobalamin (Vitamin B12) 1,000 mcg DAILY GTB Last administered on 12/16/18 09:52; Admin Dose 1,000 MCG; Start 11/27/18 at 09:00 Miscellaneous Information 1 ea NOTE XX ; Start 11/26/18 at 18:30 Glucose (Glutose) 15 gm Q15M PRN PO DECREASED GLUCOSE; Start 11/26/18 at 18:30 Glucose (Glutose) 22.5 gm Q15M PRN PO DECREASED GLUCOSE; Start 11/26/18 at 18:30 Dextrose (D50w Syringe) 25 ml Q15M PRN IV DECREASED GLUCOSE; Start 11/26/18 at 18:30 Dextrose (D50w Syringe) 50 ml Q15M PRN IV DECREASED GLUCOSE; Start 11/26/18 at 18:30 Glucagon (Glucagen) 1 mg Q15M PRN IM DECREASED GLUCOSE; Start 11/26/18 at 18:30 Glucose (Glutose) 15 gm Q15M PRN BUCCAL DECREASED GLUCOSE; Start 11/26/18 at 18:30 Diagnostic Test (Pha) (Accu-Chek) 1 ea 02 XX Last administered on 12/11/18 01:49; Admin Dose 1 EA; Start 11/27/18 at 02:00 Lorazepam (Ativan) 1 mg Q2H PRN IV SEIZURES Last administered on 11/29/18 14:39; Admin Dose 1 MG; Start 11/27/18 at 18:00 Aspirin (Aspirin) 81 mg DAILY GTB Last administered on 12/16/18 09:52; Admin Dose 81 MG; Start 11/29/18 at 10:00 Levetiracetam 100 ml @ 400 mls/hr Q12 IVPB Last administered on 12/16/18 09:58; Admin Dose 400 MLS/HR; Start 11/29/18 at 21:00 Acetaminophen (Tylenol Liquid) 650 mg Q4H PRN GTB MILD PAIN(1-3)OR ELEVATED TEMP Last administered on 12/12/18 16:18; Admin Dose 650 MG; Start 12/03/18 at 02:00 Sodium Hypochlorite (Dakin'S (Dilute )) 1 applic BID IRR Last administered on 12/16/18 09:52; Admin Dose 1 APPLIC; Start 12/03/18 at 11:24 Insulin Aspart (Novolog Insulin Pen) NOVOLOG *MILD* ALGORI... Q6 SC Last administered on 12/15/18 23:42; Admin Dose 1 UNIT; Start 12/09/18 at 18:00 Alteplase, Recombinant (Cathflo (Activase)) 2 mg MAY REPEAT X1 PRN CATHETER IF CATHETER REMAINS OCCULUDED Last administered on 12/14/18 21:48; Admin Dose 2 MG; Start 12/09/18 at 23:30 Albuterol/ Ipratropium (Duoneb) 3 ml Q6HWA RESP THERAPY HHN Last administered on 12/16/18 14:27; Admin Dose 3 ML; Start 12/12/18 at 14:00 Albuterol/ Ipratropium (Duoneb) 3 ml Q4H RESP THERAPY PRN HHN SHORTNESS OF BREATH Last administered on 12/15/18 19:48; Admin Dose 3 ML; Start 12/12/18 at 12:30 Ceftazidime 50 ml @ 100 mls/hr Q8 IVPB Last administered on 12/16/18at 14:29; Admin Dose 100 MLS/HR; Start 12/12/18 at 18:00 Metronidazole 100 ml @ 100 mls/hr Q8 IVPB Last administered on 12/16/18 15:01; Admin Dose 100 MLS/HR; Start 12/12/18 at 17:00 Collagenase (Santyl) 1 applic DAILY TOP Last administered on 12/16/18 09:52; Admin Dose 1 APPLIC; Start 12/13/18 at 10:30 LUIZ BRANNON December 16, 2018 17:06
[2018-12-16 19:18] VITALS: BP 107/53; PULSE 98; RESP 18
[2018-12-17 01:38] VITALS: BP 107/55; PULSE 79; RESP 18
[2018-12-17] MEDS: ACCU-CHEK XX SCH (02:00)
[2018-12-17] MEDS: INSULIN ASPART [NOVOLOG] 3 ML PEN SC SCH ×3 (06:00→18:53)
[2018-12-17] MEDS: CEFTAZIDIME 1GM/50 ML (PMX) 50 ML IVPB SCH ×3 (06:26→21:27)
[2018-12-17] MEDS: metroNIDAZOLE 500 MG/NS (PMX) 100 ML IVPB SCH ×3 (07:05→22:23)
[2018-12-17] MEDS: ALBUTEROL/IPRATROPIUM (NEB) 3 ML AMP HHN SCH ×3 (07:28→21:09)
[2018-12-17 08:14] VITALS: BP 107/51; PULSE 102; RESP 18
[2018-12-17] MEDS: ASPIRIN 81 MG TAB GTB SCH (09:28)
[2018-12-17] MEDS: CYANOCOBALAMIN 500 MCG TAB GTB SCH (09:28)
[2018-12-17] MEDS: CHOLECALCIFEROL 2,000 UNIT CAP GTB SCH (09:28)
[2018-12-17] MEDS: BACLOFEN 10 MG TAB GTB SCH ×3 (09:28→20:46)
[2018-12-17] MEDS: ASCORBIC ACID 500 MG TAB GTB SCH (09:28)
[2018-12-17] MEDS: COLLAGENASE 5 GM (UD JAR) TOP SCH (09:28)
[2018-12-17] MEDS: LEVETIRACETAM 1000 MG (PMX) 100 ML IVPB SCH ×2 (09:28→20:46)
[2018-12-17] MEDS: BALSAM PERU/CASTOR OIL 60 GM TUBE TOP SCH (09:29)
[2018-12-17] MEDS: SODIUM HYPOCHLORITE (1/40) 1 LITER BTL IRR SCH (09:29)
--- NOTE | 2018-12-17 10:39 | CONS ---
Consult Date/Type/Reason Admit Date/Time Nov 26, 2018 at 20:42 Initial Consult Date 11/27/18 Type of Consultation: Pulm Requesting Provider: NADEEN CHO Date/Time of Note DATE: 12/17/18 TIME: 10:37 Subjective NO acute events - pt clinically stable - no CP now - con't resp Rx. ROs: per nurse, no F/C/N/V off tele, chronic SOB Objective Vitals Vital Signs Date Temp Pulse Resp B/P (MAP) Pulse Ox O2 O2 Flow FiO2 Time Delivery Rate 12/17/18 99.2 102 18 107/51 90 08:14 (69) 12/17/18 Aerosol 5.0 28 07:28 T Tube Intake and Output 12/16/18 12/16/18 12/17/18 1515:00 23:00 07:00 IntakeIntake Total 250 ml 1080 ml 150 ml OutputOutput Total 300 ml 400 ml BalanceBalance -50 ml 680 ml 150 ml Exam General: WN/WD/NAD, AOx 0 HEENT: Unicetric/atraumatic/EOMI (does not follow commands) NECK: trach Lymph: no lymphadenopathy HEART: regular with no S3, II/ systolic murmur at apex LUNGS: Coarse sounds ABD: soft, NT, ND, +BS : Intact Neuro: contracted SKIN: chronic changes EXT: trace edema Results/Medications Result Diagram: 12/15/18 0602 12/15/18 0602 Results 24 hrs Laboratory Tests Test 12/16/18 13:06 12/16/18 17:55 12/16/18 23:28 12/17/18 05:58 Bedside Glucose 134 152 193 146 Home Meds Reported Medications Ondansetron Hcl* (Ondansetron Hcl*) 4 Mg Tablet, 4 MG PO Q6H PRN for n/v, TAB 11/26/18 Ascorbic Acid* (Vitamin C*) 500 Mg Capsule.sa, 500 MG GTB DAILY, CAP 11/26/18 Acetaminophen* (Acetaminophen*) 325 Mg Tablet, 650 MG GTB Q4H PRN for PAIN AND OR ELEVATED TEMP, #30 TAB 11/26/18 Sertraline Hcl* (Sertraline Hcl*) 50 Mg Tablet, 50 MG GTB DAILY, #30 TAB 11/26/18 Protein Supplement (Promod) 946 Ml Liquid, 30 ML GTB for supplement 11/26/18 Lansoprazole* (Lansoprazole*) 30 Mg Capsule.dr, 30 MG GTB BID, CAP 11/26/18 Hydrocodone/Acetaminophen ([place] 5-325 Tablet) 1 Each Tablet, 1 EACH GTB Q4H PRN for PAIN, TAB 11/26/18 Polyethylene Glycol* (Miralax*) 17 Gm Powd.pack, 17 GM GTB BID, #60 PACKET 11/26/18 Metoprolol Tartrate* (Lopressor*) 25 Mg Tab, 25 MG GTB BID, #60 TAB 11/26/18 Lisinopril* (Lisinopril*) 5 Mg Tablet, 5 MG GTB DAILY, #30 TAB 11/26/18 Insulin Aspart* (Novolog Insulin Pen*) 100 Unit/Ml Soln, 0 SC .SLIDING SCALE AC, EA INJECT PER SLIDING SCALE; IF 70-150=0unit; 151-200= 2units; 201-250=4units; 251-300=6units; 301-350=8units; 351-400=10units and Call MD, Subcutaneously before meals and at bedtime fo DM. 11/26/18 Insulin Glargine* (Lantus*) 100 Unit/Ml Soln, 5 UNIT SC QHS, #1 VIAL [id number] SQ AT BEDTIME FOR TYPE 2DIABETES MELLITUS WITHOUT COMPLICATIONS 11/26/18 Levetiracetam* (Keppra*) 500 Mg/5 Ml Solution, 100 MG GTB BID for SEIZURE for 30 Days, BOTTLE 11/26/18 Ipratropium-Albuterol (Ipratropium-Albuterol) 0.5-3 Mg/3 Ml Ampul.neb, 3 ML INHALATION Q6, #30 VIAL 11/26/18 Ferrous Sulfate* (Ferrous Sulfate*) 220 Mg/5 Ml Solution, 330 MG PO BID, ML 11/26/18 Epoetin Haroon (Epogen) 10,000 Units/Ml Soln, 08249 UNITS SC QWED for ANEMIA, VIAL 11/26/18 Cyanocobalamin* (Vitamin B-12*) 1,000 Mcg Tablet.sa, 1000 MCG GTB DAILY, TAB 11/26/18 Clonazepam* (Clonazepam*) 0.5 Mg Tablet, 0.5 MG GTB BID, TAB 11/26/18 Cholecalciferol (Vitamin D3) (VITAMIN D-3) 2,000 Unit Capsule, 2000 UNIT GTB DAILY, CAP 11/26/18 Baclofen* (Baclofen*) 10 Mg Tablet, 20 MG GTB TID for MUSCLE SPASM, TAB 11/26/18 Aspirin* (Aspirin* EC) 81 Mg Tablet.dr, 81 MG GTB DAILY, TAB 11/26/18 Amiodarone Hcl* (Amiodarone Hcl*) 200 Mg Tablet, 200 MG GTB BID for ARRHYTMIA, #60 TAB 11/26/18 Zolpidem Tartrate* (Zolpidem Tartrate*) 5 Mg Tablet, 5 MG GTB QHS PRN for INSOMNIA, #30 TAB 11/26/18 Acidophilus-Bulgaricus* (BD Lactinex*) 1 Pkt Packet, 1 PKT GTB BID, PACKET 11/26/18 Zinc Sulfate* (Zinc Sulfate*) 220 Mg Tablet, 220 MG GTB DAILY for 30 Days, #30 TAKE 1 CAPSULE VIA G-TUBE EVERY DAY 11/26/18 Estrogens Conjugated* (Premarin*) 0.45 Mg Tablet, 1.5 MG PO DAILY 02/18/13 Medications Current Medications IV Flush (NS 10 ml) 10 ml Q8 IV Last administered on 12/17/18at 06:01; Admin Dose 10 ML; Start 11/26/18 at 22:00 Ascorbic Acid (Vitamin C) 500 mg DAILY GTB Last administered on 12/17/18at 09:28; Admin Dose 500 MG; Start 11/27/18 at 09:00 Baclofen (Lioresal) 20 mg TID GTB Last administered on 12/17/18at 09:28; Admin Dose 20 MG; Start 11/26/18 at 21:00 Cholecalciferol (Vitamin D) 2,000 unit DAILY GTB Last administered on 12/17/18at 09:28; Admin Dose 2,000 UNIT; Start 11/27/18 at 09:00 Cyanocobalamin (Vitamin B12) 1,000 mcg DAILY GTB Last administered on 12/17/18at 09:28; Admin Dose 1,000 MCG; Start 11/27/18 at 09:00 Miscellaneous Information 1 ea NOTE XX ; Start 11/26/18 at 18:30 Glucose (Glutose) 15 gm Q15M PRN PO DECREASED GLUCOSE; Start 11/26/18 at 18:30 Glucose (Glutose) 22.5 gm Q15M PRN PO DECREASED GLUCOSE; Start 11/26/18 at 18:30 Dextrose (D50w Syringe) 25 ml Q15M PRN IV DECREASED GLUCOSE; Start 11/26/18 at 18:30 Dextrose (D50w Syringe) 50 ml Q15M PRN IV DECREASED GLUCOSE; Start 11/26/18 at 18:30 Glucagon (Glucagen) 1 mg Q15M PRN IM DECREASED GLUCOSE; Start 11/26/18 at 18:30 Glucose (Glutose) 15 gm Q15M PRN BUCCAL DECREASED GLUCOSE; Start 11/26/18 at 18:30 Diagnostic Test (Pha) (Accu-Chek) 1 ea 02 XX Last administered on 12/11/18 01: 49; Admin Dose 1 EA; Start 11/27/18 at 02:00 Lorazepam (Ativan) 1 mg Q2H PRN IV SEIZURES Last administered on 11/29/18 14:39; Admin Dose 1 MG; Start 11/27/18 at 18:00 Aspirin (Aspirin) 81 mg DAILY GTB Last administered on 12/17/18 09:28; Admin Dose 81 MG; Start 11/29/18 at 10:00 Levetiracetam 100 ml @ 400 mls/hr Q12 IVPB Last administered on 12/17/18 09:28; Admin Dose 400 MLS/HR; Start 11/29/18 at 21:00 Acetaminophen (Tylenol Liquid) 650 mg Q4H PRN GTB MILD PAIN(1-3)OR ELEVATED TEMP Last administered on 12/12/18 16:18; Admin Dose 650 MG; Start 12/03/18 at 02:00 Sodium Hypochlorite (Dakin'S (Dilute )) 1 applic BID IRR Last administered on 12/17/18 09:29; Admin Dose 1 APPLIC; Start 12/03/18 at 11:24 Insulin Aspart (Novolog Insulin Pen) NOVOLOG *MILD* ALGORI... Q6 SC Last admin istered on 12/17/18 06:00; Admin Dose 1 UNIT; Start 12/09/18 at 18:00 Alteplase, Recombinant (Cathflo (Activase)) 2 mg MAY REPEAT X1 PRN CATHETER IF CATHETER REMAINS OCCULUDED Last administered on 12/14/18 21:48; Admin Dose 2 MG; Start 12/09/18 at 23:30 Albuterol/ Ipratropium (Duoneb) 3 ml Q6HWA RESP THERAPY HHN Last administered on 12/17/18 07:28; Admin Dose 3 ML; Start 12/12/18 at 14:00 Albuterol/ Ipratropium (Duoneb) 3 ml Q4H RESP THERAPY PRN HHN SHORTNESS OF BREATH Last administered on 12/15/18 19:48; Admin Dose 3 ML; Start 12/12/18 at 12:30 Ceftazidime 50 ml @ 100 mls/hr Q8 IVPB Last administered on 12/17/18 06:26; Admin Dose 100 MLS/HR; Start 12/12/18 at 18:00 Metronidazole 100 ml @ 100 mls/hr Q8 IVPB Last administered on 12/17/18 07:05; Admin Dose 100 MLS/HR; Start 12/12/18 at 17:00 Collagenase (Santyl) 1 applic DAILY TOP Last administered on 12/17/18 09:28; Admin Dose 1 APPLIC; Start 12/13/18 at 10:30 Assessment/Plan Hospital Course (Demo Recall) 1. Atrial fibrillation/atrial flutter with rapid ventricular response - now in SR - treated - will follow. Remains in sinus now. RATE CONTROLLED. Off tele now. Stable by exam. 2. Hypotension/shock state, likely septic - better now. .BP well controlled now. In good range now. BP better. Much better. 3. History of cardiomyopathy with mildly depressed left ventricular ejection fraction approximately 40% to 45%. Keep euvolemic. Chronic. NO intervention needed. No ICD indicated. 4. History of congestive heart failure, systolic, chronic. 5. Possible pneumonia - on meds, con't anti-bx. NO new fevers. Treated. 6. Sepsis- treated, better now -no fevers. Imprved. 7. Leukocytosis. 8. Anemia requiring transfusions- no active bleed now. Treated. 9. Hypernatremia. 10. Coagulopathy. 11. Urinary tract infection. ZAHIRA RAJAN MD December 17, 2018 10:39
--- NOTE | 2018-12-17 13:05 | CONS ---
Assessment/Plan Assessment/Plan Hospital Course (Demo Recall) # sepsis, endovascular infection, respiratory - recurrent sepsis due to bacteremia and pneumonia +/- wound infection. Procalcitonin was 1.96 on 12/07/2018 - leukocytosis and fever resolved - bacteremia d/t bacteroides fragilis 12/07/2018 possibly d/t intra-abdominal infection - VAP d/t pseudomonas 12/08/2018 and 12/13/2018 - s/p septic shock due to probable UTI - s/p coag negative Staph in blood cultures on 11/26/2018, probable contaminant - colonization of the airway by pseudomonas and corynebacteria on 11/26/2018; MDR pseudomonas in trach aspirate cx from 12/08/2018 likely a colonizer - h/o sepsis due to bacteremia and pneumonia - h/o bacteremia: blood cultures grew enterococcus faecalis on 09/17/2018 secondary to R hip wound infection as its wound culture on 09/16/2018 grew E. faecalis as well - h/o recurrent acute on chronic hypoxemic respiratory failure secondary to secretion retention, mucous plugging, major left lung atelectasis, severe shunting - h/o probable aspiration pneumonia. - h/o pneumonia due to pseudomonas on 09/30/2018. s/p Levaquin (10/03/18- 10/07/2018), Meropenem (restart 09/30/2018-10/03/18, 10/12/18 - 10/19/2018) and empiric Amikacin (09/30/18-10/03/18) - H/o intubation on 09/30/2018 - H/o tracheostomy on 10/04/2018 - h/o pseudomonas in urine culture on 09/17/2018 with mild pyuria; treated with Cefepime (09/20/2018-09/25/2018) # infection of wound, OM of R hip, pressure ulcer - colonization of the wound of R hip by pseudomonas (wound culture on 10/31/2018), acinetobacter (wound culture on 11/27/2018) - h/o repeat debridement at [facility] on 11/03/2018. According to Dr. Pierson, her plastic surgeon at [facility], the wound appeared clean during the I&D (my conversation with him on 11/06/2018) - H/o stage sacral decubitus ulcer extending to bilateral buttocks. She reportedly had total hip dislocation and exposed femoral head. CT pelvis showed e/o OM. Pt complete IV vancomycin (09/17/2018-10/29/2018) for sacral OM associated with E. faecalis - H/o sharp excisional debridement down to and including bone of the sacrum on 08/22/2018 and 09/19/2018 - H/o excision of R hip ulcer, girdlestone resection arthroplasty and flap reconstruction 09/23/2018. The surgical pathology showed osteomyelitis of R hip bone, soft tissue cellulitis, and bony margin of excision was free of the diseas e - according to Dr. Pierson who performed the wound debridement, Pt needs wound care until granulation tissue builds and infection is cleared. Then he would decide if Pt should get repeat closure or not - XR of R hip on 11/09/2009 showed the remaining R femoral shaft in transverse orientation and with lateral deviation - h/o removal of devitalized/necrotic tissue by Dr. Pierson on 10/07/2018 # renal/ - funguria, recurrent; Pt completed 3 day course of fluconazole (12/04-12/06/2018). Ramires was changed on 12/04/2018. - hematuria on 11/26/2018 - h/o moderate L hydronephrosis per renal US # heme, neuro - h/o acute on chronic anemia requiring PRBC - chronic metabolic encephalopathy - supranuclear palsy # endo, cardiac - diabetes mellitus - A fib with RVR - chronic diastolic HF (EF 40-45% with grade 1 DD per 2D Echo 10/24/2018) - h/o hypertension # allergy - penicillin allergy (throat swelling) but Pt tolerates cefepime, ceftazidime, meropenem Recommendations: - Continue Ceftazidime (12/12/2018 - ); s/p jose (restart 12/07-12/12/2018) and vancomycin (12/07-12/14/2018) - Continue Flagyl IV (for possible intra abdominal infection in result of blood cxs +Bacteroides fragilis) - Consider CT abdomen pelvis to determine if colonic perf if full aggressive care desired - serial procalc periodically prior to abx cessation - Pending: blood cx (NGTD) Plan was d/w RT at bedside, and with Dr. Breaux via [employer]. Thank you Consultation Date/Type/Reason Admit Date/Time Nov 26, 2018 at 20:42 Initial Consult Date 11/27/18 Type of Consult ID Requesting Provider: NADEEN CHO Date/Time of Note DATE: 12/17/18 TIME: 13:00 24 HR Interval Summary Free Text/Dictation Patient's unable to contribute to ROS d/t chronic encephalopathy Afebrile, wbc 8.0. Per RT at bedside, this am when suctioned, pt had mod/lg amt. Exam/Review of Systems Exam Vitals Vital Signs Date Temp Pulse Resp B/P (MAP) Pulse Ox O2 O2 Flow FiO2 Time Delivery Rate 12/17/18 99.2 102 18 107/51 90 08:14 (69) 12/17/18 Aerosol 5.0 28 07:28 T Tube Intake and Output 12/16/18 12/16/18 12/17/18 1515:00 23:00 07:00 IntakeIntake Total 250 ml 1080 ml 150 ml OutputOutput Total 300 ml 400 ml BalanceBalance -50 ml 680 ml 150 ml Allergies Coded Allergies Penicillins (Verified Allergy, Unknown, 07/06/13) morphine (Verified Adverse Reaction, Mild, "LOOPY", 10/08/18) Uncoded Allergies PLASTIC TAPE ( Allergy, Unknown, 04/01/07) . Exam Constitutional: non-verbal, frail, other (chronically debilitated) Psych: confusion Head: normocephalic, atraumatic Eyes: nl conjunctiva, nl lids, nl sclera ENMT: nl external ears & nose, nl nasal mucosa & septum, mucosa pink and moist (no thrush noted on limited exam) Neck: supple, other (slightly extended) Respiratory: normal air movement, diminished breath sounds, other (trach site midline, c/d/i, getting a breathing treatment now from RT) Cardiovascular: regular rate and rhythm, nl pulses Gastrointestinal: soft, non-tender, bowel sounds (normoactive), other (PEG site is c/d/i, connected to TF) Genitourinary - Female: other (f/c draining yellow urine with lg amt seds noted in tubing) Musculoskeletal: other (contractures, R hip wound; ivan foot drop) Extremities: normal pulses; No edema Neurological: other (no eye tracking, no attempts to follow commands or communicate) Skin: nl turgor, other (reviewed nsg notes/pics); No rash or lesions Results Result Diagram: 12/15/18 0602 12/15/18 0602 Results 24hrs Laboratory Tests Test 12/16/18 13:06 12/16/18 17:55 12/16/18 23:28 12/17/18 05:58 Bedside Glucose 134 152 193 146 Imaging Imaging CXR 12/15/18 IMPRESSION: 1. There is extensive stool in the rectum with moderate bowel gas scattered throughout nondistended colon. 2. A gastrostomy tube projects over the mid left abdomen. 3. Extensive changes are again seen in the right hip. These are better described on the CT scan from 11/10/2018. CXR 12/13/18 IMPRESSION: 1. Diffuse interstitial and airspace opacities throughout the lungs are increased since the prior examination and represent pulmonary edema or multifocal infection. Medications Medication Current Medications IV Flush (NS 10 ml) 10 ml Q8 IV Last administered on 12/17/18at 06:01; Admin Dose 10 ML; Start 11/26/18 at 22:00 Ascorbic Acid (Vitamin C) 500 mg DAILY GTB Last administered on 12/17/18at 09:28; Admin Dose 500 MG; Start 11/27/18 at 09:00 Baclofen (Lioresal) 20 mg TID GTB Last administered on 12/17/18 09:28; Admin Dose 20 MG; Start 11/26/18 at 21:00 Cholecalciferol (Vitamin D) 2,000 unit DAILY GTB Last administered on 12/17/18 09:28; Admin Dose 2,000 UNIT; Start 11/27/18 at 09:00 Cyanocobalamin (Vitamin B12) 1,000 mcg DAILY GTB Last administered on 12/17/18 09:28; Admin Dose 1,000 MCG; Start 11/27/18 at 09:00 Miscellaneous Information 1 ea NOTE XX ; Start 11/26/18 at 18:30 Glucose (Glutose) 15 gm Q15M PRN PO DECREASED GLUCOSE; Start 11/26/18 at 18:30 Glucose (Glutose) 22.5 gm Q15M PRN PO DECREASED GLUCOSE; Start 11/26/18 at 18:30 Dextrose (D50w Syringe) 25 ml Q15M PRN IV DECREASED GLUCOSE; Start 11/26/18 at 18:30 Dextrose (D50w Syringe) 50 ml Q15M PRN IV DECREASED GLUCOSE; Start 11/26/18 at 18:30 Glucagon (Glucagen) 1 mg Q15M PRN IM DECREASED GLUCOSE; Start 11/26/18 at 18:30 Glucose (Glutose) 15 gm Q15M PRN BUCCAL DECREASED GLUCOSE; Start 11/26/18 at 18:30 Diagnostic Test (Pha) (Accu-Chek) 1 ea 02 XX Last administered on 12/11/18 01:49; Admin Dose 1 EA; Start 11/27/18 at 02:00 Lorazepam (Ativan) 1 mg Q2H PRN IV SEIZURES Last administered on 11/29/18 14:39; Admin Dose 1 MG; Start 11/27/18 at 18:00 Aspirin (Aspirin) 81 mg DAILY GTB Last administered on 12/17/18 09:28; Admin Dose 81 MG; Start 11/29/18 at 10:00 Levetiracetam 100 ml @ 400 mls/hr Q12 IVPB Last administered on 12/17/18 09:28; Admin Dose 400 MLS/HR; Start 11/29/18 at 21:00 Acetaminophen (Tylenol Liquid) 650 mg Q4H PRN GTB MILD PAIN(1-3)OR ELEVATED TEMP Last administered on 12/12/18 16:18; Admin Dose 650 MG; Start 12/03/18 at 02:00 Sodium Hypochlorite (Dakin'S (Dilute )) 1 applic BID IRR Last administered on 12/17/18 09:29; Admin Dose 1 APPLIC; Start 12/03/18 at 11:24 Insulin Aspart (Novolog Insulin Pen) NOVOLOG *MILD* ALGORI... Q6 SC Last administered on 12/17/18 06:00; Admin Dose 1 UNIT; Start 12/09/18 at 18:00 Alteplase, Recombinant (Cathflo (Activase)) 2 mg MAY REPEAT X1 PRN CATHETER IF CATHETER REMAINS OCCULUDED Last administered on 12/14/18 21:48; Admin Dose 2 MG; Start 12/09/18 at 23:30 Albuterol/ Ipratropium (Duoneb) 3 ml Q6HWA RESP THERAPY HHN Last administered on 12/17/18 07:28; Admin Dose 3 ML; Start 12/12/18 at 14:00 Albuterol/ Ipratropium (Duoneb) 3 ml Q4H RESP THERAPY PRN HHN SHORTNESS OF BREATH Last administered on 12/15/18 19:48; Admin Dose 3 ML; Start 12/12/18 at 12:30 Ceftazidime 50 ml @ 100 mls/hr Q8 IVPB Last administered on 12/17/18 06:26; Admin Dose 100 MLS/HR; Start 12/12/18 at 18:00 Metronidazole 100 ml @ 100 mls/hr Q8 IVPB Last administered on 12/17/18 07:05; Admin Dose 100 MLS/HR; Start 12/12/18 at 17:00 Collagenase (Santyl) 1 applic DAILY TOP Last administered on 12/17/18 09:28; Admin Dose 1 APPLIC; Start 12/13/18 at 10:30 ZENON RUDOLPH NP December 17, 2018 13:05
[2018-12-17 14:10] VITALS: BP 104/57; PULSE 99; RESP 18
--- NOTE | 2018-12-17 15:35 | PN ---
Date/Time of Note Date/Time of Note DATE: 12/17/18 TIME: 15:34 Assessment/Plan VTE Prophylaxis Risk score (from Ns)>0 risk: 3 SCD applied (from Ns): Yes Pharmacological prophylaxis: other Lines/Catheters IV Catheter Type (from Nrs): Saline Lock Urinary Cath still in place: Yes Reason Cath still needed: urinary retention Assessment/Plan Hospital Course Patient remains hemodynamically stable, afebrile, continues on cool aerosol mist via tracheostomy, continues on antibiotics for infection. Assessment/Plan -Sepsis with Bacteroides fragilis bacteremia and wound infection, continue antibiotics per ID. Dr. Breaux is following in infection disease consultation. -Pseudomonal colonization of respiratory tract -New onset of seizures, continue Keppra. Dr. Sherman is following a neurology consultation. -Atrial fibrillation/ flutter with rapid ventricular response converted to sinus rhythm. Dr. Monson is following in cardiology consultation. 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 Triplett at [facility]. -Right hip wound infection with OM of R hip, completed treatment with antibiotics. -Wound dehiscence, s/p repeat debridement at [facility] on 11/03/2018. -Diabetes -Chronic diastolic CHF -Dysphagia with GT -Anemia of chronic disease -Failure to thrive, Dr. Prieto is following in palliative care consultation. Further recommendations based on clinical course. Plan of care discussed with Dr. Shannon Result Diagram: 12/15/18 0602 12/15/18 0602 Results 24hrs Laboratory Tests Test 12/16/18 17:55 12/16/18 23:28 12/17/18 05:58 12/17/18 12:59 Bedside Glucose 152 193 146 109 Exam/Review of Systems Exam Vitals Vital Signs Date Temp Pulse Resp B/P (MAP) Pulse Ox O2 O2 Flow FiO2 Time Delivery Rate 12/17/18 98.9 99 18 104/57 92 14:10 (73) 12/17/18 Aerosol 5.0 28 13:27 T Tube Intake and Output 12/16/18 12/16/18 12/17/18 1414:59 22:59 06:59 IntakeIntake Total 200 ml 1030 ml 250 ml OutputOutput Total 300 ml 400 ml BalanceBalance -100 ml 630 ml 250 ml Exam Constitutional: non-verbal, frail Neck: other (Tracheostomy) Respiratory: diminished breath sounds Cardiovascular: nl pulse Gastrointestinal: soft, non-tender, other (G-tube) Extremities: other (Contracted) Neurological: unresponsive Skin: other (Sacral and right hip wounds) Results Results 24hrs Laboratory Tests Test 12/16/18 17:55 12/16/18 23:28 12/17/18 05:58 12/17/18 12:59 Bedside Glucose 152 193 146 109 Medications Medication Current Medications IV Flush (NS 10 ml) 10 ml Q8 IV Last administered on 12/17/18at 06:01; Admin Dose 10 ML; Start 11/26/18 at 22:00 Ascorbic Acid (Vitamin C) 500 mg DAILY GTB Last administered on 12/17/18at 09:28; Admin Dose 500 MG; Start 11/27/18 at 09:00 Baclofen (Lioresal) 20 mg TID GTB Last administered on 12/17/18at 13:39; Admin Dose 20 MG; Start 11/26/18 at 21:00 Cholecalciferol (Vitamin D) 2,000 unit DAILY GTB Last administered on 12/17/18at 09:28; Admin Dose 2,000 UNIT; Start 11/27/18 at 09:00 Cyanocobalamin (Vitamin B12) 1,000 mcg DAILY GTB Last administered on 12/17/18at 09:28; Admin Dose 1,000 MCG; Start 11/27/18 at 09:00 Miscellaneous Information 1 ea NOTE XX ; Start 11/26/18 at 18:30 Glucose (Glutose) 15 gm Q15M PRN PO DECREASED GLUCOSE; Start 11/26/18 at 18:30 Glucose (Glutose) 22.5 gm Q15M PRN PO DECREASED GLUCOSE; Start 11/26/18 at 18:30 Dextrose (D50w Syringe) 25 ml Q15M PRN IV DECREASED GLUCOSE; Start 11/26/18 at 18:30 Dextrose (D50w Syringe) 50 ml Q15M PRN IV DECREASED GLUCOSE; Start 11/26/18 at 18:30 Glucagon (Glucagen) 1 mg Q15M PRN IM DECREASED GLUCOSE; Start 11/26/18 at 18:30 Glucose (Glutose) 15 gm Q15M PRN BUCCAL DECREASED GLUCOSE; Start 11/26/18 at 18:30 Diagnostic Test (Pha) (Accu-Chek) 1 ea 02 XX Last administered on 12/11/18 01:49; Admin Dose 1 EA; Start 11/27/18 at 02:00 Lorazepam (Ativan) 1 mg Q2H PRN IV SEIZURES Last administered on 11/29/18 14:39; Admin Dose 1 MG; Start 11/27/18 at 18:00 Aspirin (Aspirin) 81 mg DAILY GTB Last administered on 12/17/18 09:28; Admin Dose 81 MG; Start 11/29/18 at 10:00 Levetiracetam 100 ml @ 400 mls/hr Q12 IVPB Last administered on 12/17/18 09:28; Admin Dose 400 MLS/HR; Start 11/29/18 at 21:00 Acetaminophen (Tylenol Liquid) 650 mg Q4H PRN GTB MILD PAIN(1-3)OR ELEVATED TEMP Last administered on 12/12/18 16:18; Admin Dose 650 MG; Start 12/03/18 at 02:00 Sodium Hypochlorite (Dakin'S (Dilute )) 1 applic BID IRR Last administered on 12/17/18 09:29; Admin Dose 1 APPLIC; Start 12/03/18 at 11:24 Insulin Aspart (Novolog Insulin Pen) NOVOLOG *MILD* ALGORI... Q6 SC Last administered on 12/17/18 06:00; Admin Dose 1 UNIT; Start 12/09/18 at 18:00 Alteplase, Recombinant (Cathflo (Activase)) 2 mg MAY REPEAT X1 PRN CATHETER IF CATHETER REMAINS OCCULUDED Last administered on 12/14/18 21:48; Admin Dose 2 MG; Start 12/09/18 at 23:30 Albuterol/ Ipratropium (Duoneb) 3 ml Q6HWA RESP THERAPY HHN Last administered on 12/17/18 13:27; Admin Dose 3 ML; Start 12/12/18 at 14:00 Albuterol/ Ipratropium (Duoneb) 3 ml Q4H RESP THERAPY PRN HHN SHORTNESS OF BREATH Last administered on 12/15/18 19:48; Admin Dose 3 ML; Start 12/12/18 at 12:30 Ceftazidime 50 ml @ 100 mls/hr Q8 IVPB Last administered on 12/17/18at 14:21; Admin Dose 100 MLS/HR; Start 12/12/18 at 18:00 Metronidazole 100 ml @ 100 mls/hr Q8 IVPB Last administered on 12/17/18at 13:39; Admin Dose 100 MLS/HR; Start 12/12/18 at 17:00 Collagenase (Santyl) 1 applic DAILY TOP Last administered on 12/17/18at 09:28; Admin Dose 1 APPLIC; Start 12/13/18 at 10:30 LUIZ BRANNON December 17, 2018 15:35
[2018-12-17 20:06] VITALS: BP 116/57; PULSE 99; RESP 18
[2018-12-18] MEDS: ACCU-CHEK XX SCH (01:15)
[2018-12-18 02:19] VITALS: BP 100/55; PULSE 81; RESP 18
[2018-12-18] MEDS: DAKINS 0.0125%(1/40) 473 ML SOLUTION IRR SCH ×3 (05:05→20:57)
[2018-12-18] MEDS: CEFTAZIDIME 1GM/50 ML (PMX) 50 ML IVPB SCH ×3 (05:05→21:57)
[2018-12-18] MEDS: metroNIDAZOLE 500 MG/NS (PMX) 100 ML IVPB SCH ×3 (05:43→22:32)
[2018-12-18] MEDS: INSULIN ASPART [NOVOLOG] 3 ML PEN SC SCH ×4 (05:45→17:51)
[2018-12-18 08:12] VITALS: BP 101/56; PULSE 89; RESP 19
[2018-12-18] MEDS: ALBUTEROL/IPRATROPIUM (NEB) 3 ML AMP HHN SCH ×3 (09:05→21:07)
[2018-12-18] MEDS: ASCORBIC ACID 500 MG TAB GTB SCH (09:07)
[2018-12-18] MEDS: BACLOFEN 10 MG TAB GTB SCH ×3 (09:07→20:57)
[2018-12-18] MEDS: ASPIRIN 81 MG TAB GTB SCH (09:07)
[2018-12-18] MEDS: COLLAGENASE 5 GM (UD JAR) TOP SCH (09:08)
[2018-12-18] MEDS: CHOLECALCIFEROL 2,000 UNIT CAP GTB SCH (09:08)
[2018-12-18] MEDS: CYANOCOBALAMIN 500 MCG TAB GTB SCH (09:08)
[2018-12-18] MEDS: BALSAM PERU/CASTOR OIL 60 GM TUBE TOP SCH (09:09)
[2018-12-18] MEDS: LEVETIRACETAM 1000 MG (PMX) 100 ML IVPB SCH ×2 (09:15→20:58)
[2018-12-18 15:23] VITALS: BP 126/62; PULSE 103; RESP 19
--- NOTE | 2018-12-18 15:52 | CONS ---
Assessment/Plan Assessment/Plan Hospital Course (Demo Recall) IMPRESSION: 1. Atrial fibrillation/atrial flutter with rapid ventricular response-now in SR 2. Hypotension/shock state, likely septic. 3. History of cardiomyopathy with mildly depressed left ventricular ejection fraction approximately 40% to 45%. 4. History of congestive heart failure, systolic, chronic. 5. Possible pneumonia. 6. Sepsis. 7. Leukocytosis. 8. Anemia requiring transfusions. 9. Hypernatremia. 10. Coagulopathy. 11. Urinary tract infection. 12. Seizures 14. hyperkalemia-improved Recc: -Now on med surg -serial ecg's -Continue abx's and f/u cx data -Continue keppra -Now on asa, follow for any bleeding complications -systemic anticoag held due to anemia requiring transfusions Consultation Date/Type/Reason Admit Date/Time Nov 26, 2018 at 20:42 Initial Consult Date 11/27/18 Type of Consult Cardiology Reason for Consultation AF Requesting Provider: NADEEN CHO Date/Time of Note DATE: 12/18/18 TIME: 15:50 Exam/Review of Systems Vital Signs Vitals Vital Signs Date Temp Pulse Resp B/P (MAP) Pulse Ox O2 O2 Flow FiO2 Time Delivery Rate 12/18/18 99.3 103 19 126/62 97 15:23 (83) 12/18/18 Aerosol 5.0 28 13:56 T Tube Intake and Output 12/17/18 12/17/18 12/18/18 1515:00 23:00 07:00 IntakeIntake Total 350 ml 500 ml 250 ml OutputOutput Total 351 ml 700 ml 350 ml BalanceBalance -1 ml -200 ml -100 ml Exam Exam Review of Systems: CONSTITUTIONAL: No fevers, chills. PULMONARY: No sob CARDIOVASCULAR: No chest pain/palpitations GASTROINTESTINAL: No nausea/vomiting. GENITOURINARY: No hematuria/dysuria. MUSCULOSKELETAL: No myagias/arthalgias. PSYCHIATRIC: The patient denies depression. NEUROLOGIC: chronic encephalopathy Constitutional: other (chronic encephalopathy) Psych: no complaints, confusion Head: normocephalic ENMT: mucosa pink and moist Neck: supple, jvd (8cm water) Respiratory: diminished breath sounds (at bases/B) Cardiovascular: irregular rhythm Gastrointestinal: soft, non-tender Musculoskeletal: muscle weakness (generalized) Extremities: edema (none) Neurological: unresponsive Labs Result Diagram: 12/18/18 0439 12/18/18 0439 Results 24hrs Laboratory Tests Test 12/17/18 18:41 12/18/18 01:14 12/18/18 04:39 12/18/18 05:45 Bedside Glucose 152 132 126 White Blood Count 8.5 Red Blood Count 3.04 L Hemoglobin 7.9 L Hematocrit 25.2 L Mean Corpuscular 82.9 Volume Mean Corpuscular 26.0 L Hemoglobin Mean Corpuscular 31.3 L Hemoglobin Concent Red Cell 18.5 H Distribution Width Platelet Count 286 Mean Platelet Volume 10.5 H Immature 0.500 H Granulocytes % Neutrophils % 72.5 Lymphocytes % 14.8 L Monocytes % 6.2 Eosinophils % 5.4 Basophils % 0.6 Nucleated Red Blood 0.0 Cells % Immature 0.040 H Granulocytes # Neutrophils # 6.2 Lymphocytes # 1.3 Monocytes # 0.5 Eosinophils # 0.5 Basophils # 0.1 Nucleated Red Blood 0.0 Cells # Sodium Level 138 Potassium Level 4.6 Chloride Level 106 Carbon Dioxide Level 27 Anion Gap 5 Blood Urea Nitrogen 23 H Creatinine 0.32 L Est Glomerular Filtrat Rate mL/min Glucose Level 131 Calcium Level 8.7 Test 12/18/18 12:13 Bedside Glucose 189 Medications Medications Current Medications IV Flush (NS 10 ml) 10 ml Q8 IV Last administered on 12/18/18 14:44; Admin Dose 10 ML; Start 11/26/18 at 22:00 Ascorbic Acid (Vitamin C) 500 mg DAILY GTB Last administered on 12/18/18 09:07; Admin Dose 500 MG; Start 11/27/18 at 09:00 Baclofen (Lioresal) 20 mg TID GTB Last administered on 12/18/18 14:44; Admin Dose 20 MG; Start 11/26/18 at 21:00 Cholecalciferol (Vitamin D) 2,000 unit DAILY GTB Last administered on 12/18/18 09:08; Admin Dose 2,000 UNIT; Start 11/27/18 at 09:00 Cyanocobalamin (Vitamin B12) 1,000 mcg DAILY GTB Last administered on 12/18/18 09:08; Admin Dose 1,000 MCG; Start 11/27/18 at 09:00 Miscellaneous Information 1 ea NOTE XX ; Start 11/26/18 at 18:30 Glucose (Glutose) 15 gm Q15M PRN PO DECREASED GLUCOSE; Start 11/26/18 at 18:30 Glucose (Glutose) 22.5 gm Q15M PRN PO DECREASED GLUCOSE; Start 11/26/18 at 18:30 Dextrose (D50w Syringe) 25 ml Q15M PRN IV DECREASED GLUCOSE; Start 11/26/18 at 18:30 Dextrose (D50w Syringe) 50 ml Q15M PRN IV DECREASED GLUCOSE; Start 11/26/18 at 18:30 Glucagon (Glucagen) 1 mg Q15M PRN IM DECREASED GLUCOSE; Start 11/26/18 at 18:30 Glucose (Glutose) 15 gm Q15M PRN BUCCAL DECREASED GLUCOSE; Start 11/26/18 at 18:30 Diagnostic Test (Pha) (Accu-Chek) 1 ea 02 XX Last administered on 12/11/18 01:49; Admin Dose 1 EA; Start 11/27/18 at 02:00 Lorazepam (Ativan) 1 mg Q2H PRN IV SEIZURES Last administered on 11/29/18 14:39; Admin Dose 1 MG; Start 11/27/18 at 18:00 Aspirin (Aspirin) 81 mg DAILY GTB Last administered on 12/18/18 09:07; Admin Dose 81 MG; Start 11/29/18 at 10:00 Levetiracetam 100 ml @ 400 mls/hr Q12 IVPB Last administered on 12/18/18 09:15; Admin Dose 400 MLS/HR; Start 11/29/18 at 21:00 Acetaminophen (Tylenol Liquid) 650 mg Q4H PRN GTB MILD PAIN(1-3)OR ELEVATED TEMP Last administered on 12/12/18 16:18; Admin Dose 650 MG; Start 12/03/18 at 02:00 Insulin Aspart (Novolog Insulin Pen) NOVOLOG *MILD* ALGORI... Q6 SC Last administered on 12/18/18 12:16; Admin Dose 2 UNIT; Start 12/09/18 at 18:00 Alteplase, Recombinant (Cathflo (Activase)) 2 mg MAY REPEAT X1 PRN CATHETER IF CATHETER REMAINS OCCULUDED Last administered on 12/14/18 21:48; Admin Dose 2 MG; Start 12/09/18 at 23:30 Albuterol/ Ipratropium (Duoneb) 3 ml Q6HWA RESP THERAPY HHN Last administered on 12/18/18 13:56; Admin Dose 3 ML; Start 12/12/18 at 14:00 Albuterol/ Ipratropium (Duoneb) 3 ml Q4H RESP THERAPY PRN HHN SHORTNESS OF BREATH Last administered on 12/15/18 19:48; Admin Dose 3 ML; Start 12/12/18 at 12:30 Ceftazidime 50 ml @ 100 mls/hr Q8 IVPB Last administered on 12/18/18 05:05; Admin Dose 100 MLS/HR; Start 12/12/18 at 18:00 Metronidazole 100 ml @ 100 mls/hr Q8 IVPB Last administered on 12/18/18 05:43; Admin Dose 100 MLS/HR; Start 12/12/18 at 17:00 Collagenase (Santyl) 1 applic DAILY TOP Last administered on 12/18/18 09:08; Admin Dose 1 APPLIC; Start 12/13/18 at 10:30 Sodium Hypochlorite (Dakins Diluted (40)) 1 applic BID IRR Last administered on 12/18/18 09:08; Admin Dose 1 APPLIC; Start 12/17/18 at 22:00 MAITE VAZQUEZ December 18, 2018 15:52
--- NOTE | 2018-12-18 16:05 | CONS ---
Assessment/Plan Assessment/Plan Hospital Course (Demo Recall) # sepsis, endovascular infection, respiratory - recurrent sepsis due to bacteremia and pneumonia +/- wound infection. Procalcitonin was 1.96 on 12/07/2018 - leukocytosis and fever resolved - bacteremia d/t bacteroides fragilis 12/07/2018 possibly d/t intra-abdominal infection - VAP d/t pseudomonas 12/08/2018 and 12/13/2018 - s/p septic shock due to probable UTI - s/p coag negative Staph in blood cultures on 11/26/2018, probable contaminant - colonization of the airway by pseudomonas and corynebacteria on 11/26/2018; MDR pseudomonas in trach aspirate cx from 12/08/2018 likely a colonizer - h/o sepsis due to bacteremia and pneumonia - h/o bacteremia: blood cultures grew enterococcus faecalis on 09/17/2018 secondary to R hip wound infection as its wound culture on 09/16/2018 grew E. faecalis as well - h/o recurrent acute on chronic hypoxemic respiratory failure secondary to secretion retention, mucous plugging, major left lung atelectasis, severe shunting - h/o probable aspiration pneumonia. - h/o pneumonia due to pseudomonas on 09/30/2018. s/p Levaquin (10/03/18- 10/07/2018), Meropenem (restart 09/30/2018-10/03/18, 10/12/18 - 10/19/2018) and empiric Amikacin (09/30/18-10/03/18) - H/o intubation on 09/30/2018 - H/o tracheostomy on 10/04/2018 - h/o pseudomonas in urine culture on 09/17/2018 with mild pyuria; treated with Cefepime (09/20/2018-09/25/2018) # infection of wound, OM of R hip, pressure ulcer - colonization of the wound of R hip by pseudomonas (wound culture on 10/31/2018), acinetobacter (wound culture on 11/27/2018) - h/o repeat debridement at [facility] on 11/03/[address]. [address] Pierson, her plastic surgeon at [facility], the wound appeared clean during the I&D (my conversation with him on 11/06/2018) - H/o stage sacral decubitus ulcer extending to bilateral buttocks. She reportedly had total hip dislocation and exposed femoral head. CT pelvis showed e/o OM. Pt complete IV vancomycin (09/17/2018-10/29/2018) for sacral OM associated with E. faecalis - H/o sharp excisional debridement down to and including bone of the sacrum on 08/22/2018 and 09/19/2018 - H/o excision of R hip ulcer, girdlestone resection arthroplasty and flap reconstruction 09/23/2018. The surgical pathology showed osteomyelitis of R hip bone, soft tissue cellulitis, and bony margin of excision was free of the diseas e - according to Dr. Pierson who performed the wound debridement, Pt needs wound care until granulation tissue builds and infection is cleared. Then he would decide if Pt should get repeat closure or not - XR of R hip on 11/09/2009 showed the remaining R femoral shaft in transverse orientation and with lateral deviation - h/o removal of devitalized/necrotic tissue by Dr. Pierson on 10/07/2018 # renal/ - funguria, recurrent; Pt completed 3 day course of fluconazole (12/04-12/06/2018). Ramires was changed on 12/04/2018. - hematuria on 11/26/2018 - h/o moderate L hydronephrosis per renal US # heme, neuro - h/o acute on chronic anemia requiring PRBC - chronic metabolic encephalopathy - supranuclear palsy # endo, cardiac - diabetes mellitus - A fib with RVR - chronic diastolic HF (EF 40-45% with grade 1 DD per 2D Echo 10/24/2018) - h/o hypertension # allergy - penicillin allergy (throat swelling) but Pt tolerates cefepime, ceftazidime, meropenem Recommendations: - Continue Ceftazidime (12/12/2018 - ); s/p jose (restart 12/07-12/12/2018) and vancomycin (12/07-12/14/2018)-- plan to finish 7-10 days depending on procalcitonin resolution - Continue Flagyl IV (for possible intra abdominal infection in result of blood cxs +Bacteroides fragilis)--14 days from first neg bcx - Consider CT abdomen pelvis to determine if colonic perf if full aggressive care desired - serial procalc periodically prior to abx cessation - Pending: blood cx (NGTD) Consultation Date/Type/Reason Admit Date/Time Nov 26, 2018 at 20:42 Initial Consult Date 11/27/18 Requesting Provider: NADEEN CHO Date/Time of Note DATE: 12/18/18 TIME: 16:04 24 HR Interval Summary Free Text/Dictation picc line inserted Exam/Review of Systems Exam Vitals Vital Signs Date Temp Pulse Resp B/P (MAP) Pulse Ox O2 O2 Flow FiO2 Time Delivery Rate 12/18/18 99.3 103 19 126/62 97 15:23 (83) 12/18/18 Aerosol 5.0 28 13:56 T Tube Intake and Output 12/17/18 12/17/18 12/18/18 1414:59 22:59 06:59 IntakeIntake Total 350 ml 450 ml 300 ml OutputOutput Total 351 ml 700 ml 350 ml BalanceBalance -1 ml -250 ml -50 ml Constitutional: alert, oriented, well developed Psych: no complaints, nl mood/affect Eyes: nl conjunctiva, EOMI, nl lids, nl sclera, PERRL Neck: supple, non-tender Respiratory: congested cough, diminished breath sounds Cardiovascular: regular rate and rhythm, nl pulses Musculoskeletal: nl extremities to inspection, nl gait and stance Neurological: BOTTLE FEEDER II-XII intact, nl mental status, nl speech, nl strength Results Result Diagram: 12/18/189 12/18/189 Results 24hrs Laboratory Tests Test 12/17/18 18:41 12/18/18 01:14 12/18/18 04:39 12/18/18 05:45 Bedside Glucose 152 132 126 White Blood Count 8.5 Red Blood Count 3.04 L Hemoglobin 7.9 L Hematocrit 25.2 L Mean Corpuscular 82.9 Volume Mean Corpuscular 26.0 L Hemoglobin Mean Corpuscular 31.3 L Hemoglobin Concent Red Cell 18.5 H Distribution Width Platelet Count 286 Mean Platelet Volume 10.5 H Immature 0.500 H Granulocytes % Neutrophils % 72.5 Lymphocytes % 14.8 L Monocytes % 6.2 Eosinophils % 5.4 Basophils % 0.6 Nucleated Red Blood 0.0 Cells % Immature 0.040 H Granulocytes # Neutrophils # 6.2 Lymphocytes # 1.3 Monocytes # 0.5 Eosinophils # 0.5 Basophils # 0.1 Nucleated Red Blood 0.0 Cells # Sodium Level 138 Potassium Level 4.6 Chloride Level 106 Carbon Dioxide Level 27 Anion Gap 5 Blood Urea Nitrogen 23 H Creatinine 0.32 L Est Glomerular Filtrat Rate mL/min Glucose Level 131 Calcium Level 8.7 Test 12/18/18 12:13 Bedside Glucose 189 Medications Medication Current Medications IV Flush (NS 10 ml) 10 ml Q8 IV Last administered on 12/18/18 14:44; Admin Dose 10 ML; Start 11/26/18 at 22:00 Ascorbic Acid (Vitamin C) 500 mg DAILY GTB Last administered on 12/18/18 09: 07; Admin Dose 500 MG; Start 11/27/18 at 09:00 Baclofen (Lioresal) 20 mg TID GTB Last administered on 12/18/18 14:44; Admin Dose 20 MG; Start 11/26/18 at 21:00 Cholecalciferol (Vitamin D) 2,000 unit DAILY GTB Last administered on 12/18/18 09:08; Admin Dose 2,000 UNIT; Start 11/27/18 at 09:00 Cyanocobalamin (Vitamin B12) 1,000 mcg DAILY GTB Last administered on 12/18/18 09:08; Admin Dose 1,000 MCG; Start 11/27/18 at 09:00 Miscellaneous Information 1 ea NOTE XX ; Start 11/26/18 at 18:30 Glucose (Glutose) 15 gm Q15M PRN PO DECREASED GLUCOSE; Start 11/26/18 at 18:30 Glucose (Glutose) 22.5 gm Q15M PRN PO DECREASED GLUCOSE; Start 11/26/18 at 18:30 Dextrose (D50w Syringe) 25 ml Q15M PRN IV DECREASED GLUCOSE; Start 11/26/18 at 18:30 Dextrose (D50w Syringe) 50 ml Q15M PRN IV DECREASED GLUCOSE; Start 11/26/18 at 18:30 Glucagon (Glucagen) 1 mg Q15M PRN IM DECREASED GLUCOSE; Start 11/26/18 at 18:30 Glucose (Glutose) 15 gm Q15M PRN BUCCAL DECREASED GLUCOSE; Start 11/26/18 at 18:30 Diagnostic Test (Pha) (Accu-Chek) 1 ea 02 XX Last administered on 12/11/18at 01:49; Admin Dose 1 EA; Start 11/27/18 at 02:00 Lorazepam (Ativan) 1 mg Q2H PRN IV SEIZURES Last administered on 11/29/18 14:39; Admin Dose 1 MG; Start 11/27/18 at 18:00 Aspirin (Aspirin) 81 mg DAILY GTB Last administered on 12/18/18 09:07; Admin Dose 81 MG; Start 11/29/18 at 10:00 Levetiracetam 100 ml @ 400 mls/hr Q12 IVPB Last administered on 12/18/18 09:15; Admin Dose 400 MLS/HR; Start 11/29/18 at 21:00 Acetaminophen (Tylenol Liquid) 650 mg Q4H PRN GTB MILD PAIN(1-3)OR ELEVATED TEMP Last administered on 12/12/18 16:18; Admin Dose 650 MG; Start 12/03/18 at 02:00 Insulin Aspart (Novolog Insulin Pen) NOVOLOG *MILD* ALGORI... Q6 SC Last administered on 12/18/18 12:16; Admin Dose 2 UNIT; Start 12/09/18 at 18:00 Alteplase, Recombinant (Cathflo (Activase)) 2 mg MAY REPEAT X1 PRN CATHETER IF CATHETER REMAINS OCCULUDED Last administered on 12/14/18 21:48; Admin Dose 2 MG; Start 12/09/18 at 23:30 Albuterol/ Ipratropium (Duoneb) 3 ml Q6HWA RESP THERAPY HHN Last administered on 12/18/18 13:56; Admin Dose 3 ML; Start 12/12/18 at 14:00 Albuterol/ Ipratropium (Duoneb) 3 ml Q4H RESP THERAPY PRN HHN SHORTNESS OF B REATH Last administered on 12/15/18 19:48; Admin Dose 3 ML; Start 12/12/18 at 12:30 Ceftazidime 50 ml @ 100 mls/hr Q8 IVPB Last administered on 12/18/18 05:05; Admin Dose 100 MLS/HR; Start 12/12/18 at 18:00 Metronidazole 100 ml @ 100 mls/hr Q8 IVPB Last administered on 12/18/18 05:43; Admin Dose 100 MLS/HR; Start 12/12/18 at 17:00 Collagenase (Santyl) 1 applic DAILY TOP Last administered on 5/15/19at 09:08; Admin Dose 1 APPLIC; Start 12/13/18 at 10:30 Sodium Hypochlorite (Dakins Diluted (40)) 1 applic BID IRR Last administered on 12/18/18at 09:08; Admin Dose 1 APPLIC; Start 12/17/18 at 22:00 KASH MONDRAGON MD December 18, 2018 16:05
--- NOTE | 2018-12-18 16:17 | PN ---
Date/Time of Note Date/Time of Note DATE: 12/18/18 TIME: 16:13 Assessment/Plan VTE Prophylaxis Risk score (from Ns)>0 risk: 3 SCD applied (from Ns): Yes Pharmacological prophylaxis: NA/contraindicated Pharm contraindication: other Lines/Catheters IV Catheter Type (from Nrsg): PICC Line Central line still needed: Yes Urinary Cath still in place: Yes Reason Cath still needed: urinary retention Assessment/Plan Hospital Course Patient is DNR/DNI per POLST. Low-grade fever, patient is continued on antibiotics, patient continues on cool aerosol mist via tracheostomy, acute events per RN. Assessment/Plan -Sepsis with Bacteroides fragilis bacteremia and wound infection, continue antibiotics per ID. Dr. Breaux is following in infection disease consultation. -Pseudomonal colonization of respiratory tract -New onset of seizures, continue Keppra. Dr. Sherman is following a neurology consultation. -Atrial fibrillation/ flutter with rapid ventricular response converted to sinus rhythm. Dr. Monson is following in cardiology consultation. -Respiratory failure with tracheostomy -Progressive supranuclear palsy -Chronic encephalopathy -Decubitus ulcer of the right hip and sacrum, status post Girdlestone procedure of the right hip with flap in September 2018, followed by removal of necrotic t issue by Dr. Triplett at [facility]. -Right hip wound infection with OM of R hip, completed treatment with antibiotics. -Wound dehiscence, s/p repeat debridement at [facility] on 11/03/2018. -Diabetes -Chronic diastolic CHF -Dysphagia with GT -Anemia of chronic disease -Failure to thrive, Dr. Prieto is following in palliative care consultation. -DNR/DNI status Further recommendations based on clinical course. Plan of care discussed with Dr. Shannon Result Diagram: 12/18/18 0439 12/18/18 0439 Results 24hrs Laboratory Tests Test 12/17/18 18:41 12/18/18 01:14 12/18/18 04:39 12/18/18 05:45 Bedside Glucose 152 132 126 White Blood Count 8.5 Red Blood Count 3.04 L Hemoglobin 7.9 L Hematocrit 25.2 L Mean Corpuscular 82.9 Volume Mean Corpuscular 26.0 L Hemoglobin Mean Corpuscular 31.3 L Hemoglobin Concent Red Cell 18.5 H Distribution Width Platelet Count 286 Mean Platelet Volume 10.5 H Immature 0.500 H Granulocytes % Neutrophils % 72.5 Lymphocytes % 14.8 L Monocytes % 6.2 Eosinophils % 5.4 Basophils % 0.6 Nucleated Red Blood 0.0 Cells % Immature 0.040 H Granulocytes # Neutrophils # 6.2 Lymphocytes # 1.3 Monocytes # 0.5 Eosinophils # 0.5 Basophils # 0.1 Nucleated Red Blood 0.0 Cells # Sodium Level 138 Potassium Level 4.6 Chloride Level 106 Carbon Dioxide Level 27 Anion Gap 5 Blood Urea Nitrogen 23 H Creatinine 0.32 L Est Glomerular Filtrat Rate mL/min Glucose Level 131 Calcium Level 8.7 Test 12/18/18 12:13 Bedside Glucose 189 Exam/Review of Systems Exam Vitals Vital Signs Date Temp Pulse Resp B/P (MAP) Pulse Ox O2 O2 Flow FiO2 Time Delivery Rate 12/18/18 99.3 103 19 126/62 97 15:23 (83) 12/18/18 Aerosol 5.0 28 13:56 T Tube Intake and Output 12/17/18 12/17/18 12/18/18 1515:00 23:00 07:00 IntakeIntake Total 350 ml 500 ml 250 ml OutputOutput Total 351 ml 700 ml 350 ml BalanceBalance -1 ml -200 ml -100 ml Exam Constitutional: non-verbal, frail Neck: other (Tracheostomy) Respiratory: diminished breath sounds Cardiovascular: nl pulse Gastrointestinal: soft, non-tender, other (G-tube) Extremities: other (Contracted) Neurological: unresponsive Skin: other (Sacral and right hip wounds) Results Results 24hrs Laboratory Tests Test 12/17/18 18:41 12/18/18 01:14 12/18/18 04:39 12/18/18 05:45 Bedside Glucose 152 132 126 White Blood Count 8.5 Red Blood Count 3.04 L Hemoglobin 7.9 L Hematocrit 25.2 L Mean Corpuscular 82.9 Volume Mean Corpuscular 26.0 L Hemoglobin Mean Corpuscular 31.3 L Hemoglobin Concent Red Cell 18.5 H Distribution Width Platelet Count 286 Mean Platelet Volume 10.5 H Immature 0.500 H Granulocytes % Neutrophils % 72.5 Lymphocytes % 14.8 L Monocytes % 6.2 Eosinophils % 5.4 Basophils % 0.6 Nucleated Red Blood 0.0 Cells % Immature 0.040 H Granulocytes # Neutrophils # 6.2 Lymphocytes # 1.3 Monocytes # 0.5 Eosinophils # 0.5 Basophils # 0.1 Nucleated Red Blood 0.0 Cells # Sodium Level 138 Potassium Level 4.6 Chloride Level 106 Carbon Dioxide Level 27 Anion Gap 5 Blood Urea Nitrogen 23 H Creatinine 0.32 L Est Glomerular Filtrat Rate mL/min Glucose Level 131 Calcium Level 8.7 Test 12/18/18 12:13 Bedside Glucose 189 Medications Medication Current Medications IV Flush (NS 10 ml) 10 ml Q8 IV Last administered on 12/18/18 14:44; Admin Dose 10 ML; Start 11/26/18 at 22:00 Ascorbic Acid (Vitamin C) 500 mg DAILY GTB Last administered on 12/18/18 09:07; Admin Dose 500 MG; Start 11/27/18 at 09:00 Baclofen (Lioresal) 20 mg TID GTB Last administered on 12/18/18 14:44; Admin Dose 20 MG; Start 11/26/18 at 21:00 Cholecalciferol (Vitamin D) 2,000 unit DAILY GTB Last administered on 12/18/18 09:08; Admin Dose 2,000 UNIT; Start 11/27/18 at 09:00 Cyanocobalamin (Vitamin B12) 1,000 mcg DAILY GTB Last administered on 12/18/18 09:08; Admin Dose 1,000 MCG; Start 11/27/18 at 09:00 Miscellaneous Information 1 ea NOTE XX ; Start 11/26/18 at 18:30 Glucose (Glutose) 15 gm Q15M PRN PO DECREASED GLUCOSE; Start 11/26/18 at 18:30 Glucose (Glutose) 22.5 gm Q15M PRN PO DECREASED GLUCOSE; Start 11/26/18 at 18:30 Dextrose (D50w Syringe) 25 ml Q15M PRN IV DECREASED GLUCOSE; Start 11/26/18 at 18:30 Dextrose (D50w Syringe) 50 ml Q15M PRN IV DECREASED GLUCOSE; Start 11/26/18 at 18:30 Glucagon (Glucagen) 1 mg Q15M PRN IM DECREASED GLUCOSE; Start 11/26/18 at 18:30 Glucose (Glutose) 15 gm Q15M PRN BUCCAL DECREASED GLUCOSE; Start 11/26/18 at 18:30 Diagnostic Test (Pha) (Accu-Chek) 1 ea 02 XX Last administered on 12/11/18 01:49; Admin Dose 1 EA; Start 11/27/18 at 02:00 Lorazepam (Ativan) 1 mg Q2H PRN IV SEIZURES Last administered on 11/29/18 14:39; Admin Dose 1 MG; Start 11/27/18 at 18:00 Aspirin (Aspirin) 81 mg DAILY GTB Last administered on 12/18/18 09:07; Admin Dose 81 MG; Start 11/29/18 at 10:00 Levetiracetam 100 ml @ 400 mls/hr Q12 IVPB Last administered on 12/18/18 09:15; Admin Dose 400 MLS/HR; Start 11/29/18 at 21:00 Acetaminophen (Tylenol Liquid) 650 mg Q4H PRN GTB MILD PAIN(1-3)OR ELEVATED TEMP Last administered on 12/12/18 16:18; Admin Dose 650 MG; Start 12/03/18 at 02:00 Insulin Aspart (Novolog Insulin Pen) NOVOLOG *MILD* ALGORI... Q6 SC Last administered on 12/18/18 12:16; Admin Dose 2 UNIT; Start 12/09/18 at 18:00 Alteplase, Recombinant (Cathflo (Activase)) 2 mg MAY REPEAT X1 PRN CATHETER IF CATHETER REMAINS OCCULUDED Last administered on 12/14/18 21:48; Admin Dose 2 MG; Start 12/09/18 at 23:30 Albuterol/ Ipratropium (Duoneb) 3 ml Q6HWA RESP THERAPY HHN Last administered on 12/18/18 13:56; Admin Dose 3 ML; Start 12/12/18 at 14:00 Albuterol/ Ipratropium (Duoneb) 3 ml Q4H RESP THERAPY PRN HHN SHORTNESS OF BREATH Last administered on 12/15/18 19:48; Admin Dose 3 ML; Start 12/12/18 at 12:30 Ceftazidime 50 ml @ 100 mls/hr Q8 IVPB Last administered on 12/18/18 05:05; Admin Dose 100 MLS/HR; Start 12/12/18 at 18:00 Metronidazole 100 ml @ 100 mls/hr Q8 IVPB Last administered on 12/18/18 05:43; Admin Dose 100 MLS/HR; Start 12/12/18 at 17:00 Collagenase (Santyl) 1 applic DAILY TOP Last administered on 12/18/18at 09:08; Admin Dose 1 APPLIC; Start 12/13/18 at 10:30 Sodium Hypochlorite (Dakins Diluted (/40)) 1 applic BID IRR Last administered on 12/18/18at 09:08; Admin Dose 1 APPLIC; Start 12/17/18 at 22:00 LUIZ BRANNON December 18, 2018 16:17
[2018-12-18 20:02] VITALS: BP 103/55; PULSE 92; RESP 16
[2018-12-19] MEDS: INSULIN ASPART [NOVOLOG] 3 ML PEN SC SCH ×4 (00:27→17:59)
[2018-12-19] MEDS: ACCU-CHEK XX SCH (01:26)
[2018-12-19 01:29] VITALS: BP 93/53; PULSE 99; RESP 16
[2018-12-19] MEDS: CEFTAZIDIME 1GM/50 ML (PMX) 50 ML IVPB SCH ×3 (05:48→21:35)
[2018-12-19] MEDS: metroNIDAZOLE 500 MG/NS (PMX) 100 ML IVPB SCH ×3 (06:26→22:13)
[2018-12-19 08:24] VITALS: BP 118/56; PULSE 80; RESP 17
[2018-12-19] MEDS: ALBUTEROL/IPRATROPIUM (NEB) 3 ML AMP HHN SCH ×3 (08:37→21:08)
[2018-12-19] MEDS: CHOLECALCIFEROL 2,000 UNIT CAP GTB SCH (09:55)
[2018-12-19] MEDS: LEVETIRACETAM 1000 MG (PMX) 100 ML IVPB SCH ×2 (09:55→20:58)
[2018-12-19] MEDS: COLLAGENASE 5 GM (UD JAR) TOP SCH (09:55)
[2018-12-19] MEDS: ASCORBIC ACID 500 MG TAB GTB SCH (09:55)
[2018-12-19] MEDS: BACLOFEN 10 MG TAB GTB SCH ×3 (09:55→20:59)
[2018-12-19] MEDS: ASPIRIN 81 MG TAB GTB SCH (09:55)
[2018-12-19] MEDS: CYANOCOBALAMIN 500 MCG TAB GTB SCH (09:55)
[2018-12-19] MEDS: DAKINS 0.0125%(1/40) 473 ML SOLUTION IRR SCH ×2 (09:57→20:59)
[2018-12-19] MEDS: BALSAM PERU/CASTOR OIL 60 GM TUBE TOP SCH (09:58)
--- NOTE | 2018-12-19 10:20 | PN ---
Date/Time of Note Date/Time of Note DATE: 12/19/18 TIME: 10:18 Assessment/Plan VTE Prophylaxis Risk score (from Ns)>0 risk: 6 SCD applied (from Ns): Yes Pharmacological prophylaxis: other Lines/Catheters IV Catheter Type (from Nrsg): PICC Line Central line still needed: Yes Urinary Cath still in place: Yes Reason Cath still needed: urinary retention Assessment/Plan Hospital Course Patient continues on antibiotics for bacteremia, no change in neuro status, on cool aerosol mist via tracheostomy, tolerates G-tube feeding. Assessment/Plan -Sepsis with Bacteroides fragilis bacteremia and wound infection, continue ant ibiotics per ID. Dr. Breaux is following in infection disease consultation. -Pseudomonal colonization of respiratory tract -New onset of seizures, continue Keppra. Dr. Sherman is following a neurology consultation. -Atrial fibrillation/ flutter with rapid ventricular response converted to sinus rhythm. Dr. Monson is following in cardiology consultation. 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 Triplett at [facility]. -Right hip wound infection with OM of R hip, completed treatment with antibiotics. -Wound dehiscence, s/p repeat debridement at [facility] on 11/03/2018. -Diabetes -Chronic diastolic CHF -Dysphagia with GT -Anemia of chronic disease -Failure to thrive, Dr. Prieto is following in palliative care consultation. -DNR/DNI status Further recommendations based on clinical course. Plan of care discussed with Dr. Shannon Result Diagram: 12/19/18 0504 12/19/18 0504 Results 24hrs Laboratory Tests Test 12/18/18 12:13 12/18/18 17:50 12/19/18 00:24 12/19/18 05:04 Bedside Glucose 189 175 148 White Blood Count 8.5 Red Blood Count 2.94 L Hemoglobin 7.5 L Hematocrit 24.6 L Mean Corpuscular 83.7 Volume Mean Corpuscular 25.5 L Hemoglobin Mean Corpuscular 30.5 L Hemoglobin Concent Red Cell 18.2 H Distribution Width Platelet Count 309 Mean Platelet Volume 10.5 H Immature 0.500 H Granulocytes % Neutrophils % 75.5 Lymphocytes % 13.3 L Monocytes % 6.7 Eosinophils % 3.5 Basophils % 0.5 Nucleated Red Blood 0.0 Cells % Immature 0.040 H Granulocytes # Neutrophils # 6.4 Lymphocytes # 1.1 Monocytes # 0.6 Eosinophils # 0.3 Basophils # 0.0 Nucleated Red Blood 0.0 Cells # Sodium Level 137 Potassium Level 4.7 Chloride Level 106 Carbon Dioxide Level 26 Anion Gap 5 Blood Urea Nitrogen 20 Creatinine 0.35 L Est Glomerular Filtrat Rate mL/min Glucose Level 173 Calcium Level 8.7 Test 12/19/18 05:50 Bedside Glucose 157 Exam/Review of Systems Exam Vitals Vital Signs Date Temp Pulse Resp B/P (MAP) Pulse Ox O2 O2 Flow FiO2 Time Delivery Rate 12/19/18 96 5.0 28 08:39 12/19/18 73 18 Aerosol 08:39 T Tube 12/19/18 98.8 118/56 08:24 (76) Intake and Output 12/18/18 12/18/18 12/19/18 1515:00 23:00 07:00 IntakeIntake Total 100 ml 1030 ml 1030 ml OutputOutput Total 500 ml 400 ml BalanceBalance -400 ml 630 ml 1030 ml Exam Constitutional: non-verbal, frail Neck: other (Tracheostomy) Respiratory: diminished breath sounds Cardiovascular: nl pulse Gastrointestinal: soft, non-tender, other (G-tube) Extremities: other (Contracted) Neurological: unresponsive Skin: other (Sacral and right hip wounds) Results Results 24hrs Laboratory Tests Test 12/18/18 12:13 12/18/18 17:50 12/19/18 00:24 12/19/18 05:04 Bedside Glucose 189 175 148 White Blood Count 8.5 Red Blood Count 2.94 L Hemoglobin 7.5 L Hematocrit 24.6 L Mean Corpuscular 83.7 Volume Mean Corpuscular 25.5 L Hemoglobin Mean Corpuscular 30.5 L Hemoglobin Concent Red Cell 18.2 H Distribution Width Platelet Count 309 Mean Platelet Volume 10.5 H Immature 0.500 H Granulocytes % Neutrophils % 75.5 Lymphocytes % 13.3 L Monocytes % 6.7 Eosinophils % 3.5 Basophils % 0.5 Nucleated Red Blood 0.0 Cells % Immature 0.040 H Granulocytes # Neutrophils # 6.4 Lymphocytes # 1.1 Monocytes # 0.6 Eosinophils # 0.3 Basophils # 0.0 Nucleated Red Blood 0.0 Cells # Sodium Level 137 Potassium Level 4.7 Chloride Level 106 Carbon Dioxide Level 26 Anion Gap 5 Blood Urea Nitrogen 20 Creatinine 0.35 L Est Glomerular Filtrat Rate mL/min Glucose Level 173 Calcium Level 8.7 Test 12/19/18 05:50 Bedside Glucose 157 Medications Medication Current Medications IV Flush (NS 10 ml) 10 ml Q8 IV Last administered on 12/19/18 05:48; Admin Dose 10 ML; Start 11/26/18 at 22:00 Ascorbic Acid (Vitamin C) 500 mg DAILY GTB Last administered on 12/19/18 09:55; Admin Dose 500 MG; Start 11/27/18 at 09:00 Baclofen (Lioresal) 20 mg TID GTB Last administered on 12/19/18 09:55; Admin Dose 20 MG; Start 11/26/18 at 21:00 Cholecalciferol (Vitamin D) 2,000 unit DAILY GTB Last administered on 12/19/18 09:55; Admin Dose 2,000 UNIT; Start 11/27/18 at 09:00 Cyanocobalamin (Vitamin B12) 1,000 mcg DAILY GTB Last administered on 12/19/18 09:55; Admin Dose 1,000 MCG; Start 11/27/18 at 09:00 Miscellaneous Information 1 ea NOTE XX ; Start 11/26/18 at 18:30 Glucose (Glutose) 15 gm Q15M PRN PO DECREASED GLUCOSE; Start 11/26/18 at 18:30 Glucose (Glutose) 22.5 gm Q15M PRN PO DECREASED GLUCOSE; Start 11/26/18 at 18:30 Dextrose (D50w Syringe) 25 ml Q15M PRN IV DECREASED GLUCOSE; Start 11/26/18 at 18:30 Dextrose (D50w Syringe) 50 ml Q15M PRN IV DECREASED GLUCOSE; Start 11/26/18 at 18:30 Glucagon (Glucagen) 1 mg Q15M PRN IM DECREASED GLUCOSE; Start 11/26/18 at 18:30 Glucose (Glutose) 15 gm Q15M PRN BUCCAL DECREASED GLUCOSE; Start 11/26/18 at 18:30 Diagnostic Test (Pha) (Accu-Chek) 1 ea 02 XX Last administered on 12/11/18at 01:49; Admin Dose 1 EA; Start 11/27/18 at 02:00 Lorazepam (Ativan) 1 mg Q2H PRN IV SEIZURES Last administered on 11/29/18 14:39; Admin Dose 1 MG; Start 11/27/18 at 18:00 Aspirin (Aspirin) 81 mg DAILY GTB Last administered on 12/19/18 09:55; Admin Dose 81 MG; Start 11/29/18 at 10:00 Levetiracetam 100 ml @ 400 mls/hr Q12 IVPB Last administered on 12/19/18 09:55; Admin Dose 400 MLS/HR; Start 11/29/18 at 21:00 Acetaminophen (Tylenol Liquid) 650 mg Q4H PRN GTB MILD PAIN(1-3)OR ELEVATED TEMP Last administered on 12/12/18 16:18; Admin Dose 650 MG; Start 12/03/18 at 02:00 Insulin Aspart (Novolog Insulin Pen) NOVOLOG *MILD* ALGORI... Q6 SC Last administered on 12/19/18 05:52; Admin Dose 1 UNIT; Start 12/09/18 at 18:00 Alteplase, Recombinant (Cathflo (Activase)) 2 mg MAY REPEAT X1 PRN CATHETER IF CATHETER REMAINS OCCULUDED Last administered on 12/14/18 21:48; Admin Dose 2 MG; Start 12/09/18 at 23:30 Albuterol/ Ipratropium (Duoneb) 3 ml Q6HWA RESP THERAPY HHN Last administered on 12/19/18 08:37; Admin Dose 3 ML; Start 12/12/18 at 14:00 Albuterol/ Ipratropium (Duoneb) 3 ml Q4H RESP THERAPY PRN HHN SHORTNESS OF SKY TH Last administered on 12/15/18 19:48; Admin Dose 3 ML; Start 12/12/18 at 12:30 Ceftazidime 50 ml @ 100 mls/hr Q8 IVPB Last administered on 12/19/18 05:48; Admin Dose 100 MLS/HR; Start 12/12/18 at 18:00 Metronidazole 100 ml @ 100 mls/hr Q8 IVPB Last administered on 12/19/18 06:26; Admin Dose 100 MLS/HR; Start 12/12/18 at 17:00 Collagenase (Santyl) 1 applic DAILY TOP Last administered on 12/19/18at 09:55; Admin Dose 1 APPLIC; Start 12/13/18 at 10:30 Sodium Hypochlorite (Dakins Diluted (40)) 1 applic BID IRR Last administered on 12/19/18at 09:57; Admin Dose 1 APPLIC; Start 12/17/18 at 22:00 LUIZ BRANNON December 19, 2018 10:20
--- NOTE | 2018-12-19 13:38 | CONS ---
Assessment/Plan Assessment/Plan Hospital Course (Demo Recall) IMPRESSION: 1. Atrial fibrillation/atrial flutter with rapid ventricular response-now in SR 2. Hypotension/shock state, likely septic. 3. History of cardiomyopathy with mildly depressed left ventricular ejection fraction approximately 40% to 45%. 4. History of congestive heart failure, systolic, chronic. 5. Possible pneumonia. 6. Sepsis. 7. Leukocytosis. 8. Anemia requiring transfusions. 9. Hypernatremia. 10. Coagulopathy. 11. Urinary tract infection. 12. Seizures 14. hyperkalemia-improved Recc: -Now on med surg -serial ecg's -Continue abx's and f/u cx data -Continue keppra -Now on asa, follow for any bleeding complications -systemic anticoag held due to anemia requiring transfusions Consultation Date/Type/Reason Admit Date/Time Nov 26, 2018 at 20:42 Initial Consult Date 11/27/18 Type of Consult Cardiology Reason for Consultation AF Requesting Provider: NADEEN CHO Date/Time of Note DATE: 12/19/18 TIME: 13:37 Exam/Review of Systems Vital Signs Vitals Vital Signs Date Temp Pulse Resp B/P (MAP) Pulse Ox O2 O2 Flow FiO2 Time Delivery Rate 12/19/18 72 20 95 Aerosol 5.0 28 13:24 T Tube 12/19/18 98.8 118/56 08:24 (76) Intake and Output 12/18/18 12/18/18 12/19/18 1515:00 23:00 07:00 IntakeIntake Total 100 ml 1030 ml 1030 ml OutputOutput Total 500 ml 400 ml BalanceBalance -400 ml 630 ml 1030 ml Exam Exam Review of Systems: CONSTITUTIONAL: No fevers, chills. PULMONARY: No sob CARDIOVASCULAR: No chest pain/palpitations GASTROINTESTINAL: No nausea/vomiting. GENITOURINARY: No hematuria/dysuria. MUSCULOSKELETAL: No myagias/arthalgias. PSYCHIATRIC: The patient denies depression. NEUROLOGIC: No weakness Constitutional: other (encephalopathy) Psych: no complaints Head: normocephalic ENMT: mucosa pink and moist Neck: supple, jvd Respiratory: clear to auscultation Cardiovascular: regular rate and rhythm Gastrointestinal: soft, non-tender Musculoskeletal: muscle weakness (generalized weakness) Extremities: edema (none) Labs Result Diagram: 12/19/18 0504 12/19/18 0504 Results 24hrs Laboratory Tests Test 12/18/18 17:50 12/19/18 00:24 12/19/18 05:04 12/19/18 05:50 Bedside Glucose 175 148 157 White Blood Count 8.5 Red Blood Count 2.94 L Hemoglobin 7.5 L Hematocrit 24.6 L Mean Corpuscular 83.7 Volume Mean Corpuscular 25.5 L Hemoglobin Mean Corpuscular 30.5 L Hemoglobin Concent Red Cell 18.2 H Distribution Width Platelet Count 309 Mean Platelet Volume 10.5 H Immature 0.500 H Granulocytes % Neutrophils % 75.5 Lymphocytes % 13.3 L Monocytes % 6.7 Eosinophils % 3.5 Basophils % 0.5 Nucleated Red Blood 0.0 Cells % Immature 0.040 H Granulocytes # Neutrophils # 6.4 Lymphocytes # 1.1 Monocytes # 0.6 Eosinophils # 0.3 Basophils # 0.0 Nucleated Red Blood 0.0 Cells # Sodium Level 137 Potassium Level 4.7 Chloride Level 106 Carbon Dioxide Level 26 Anion Gap 5 Blood Urea Nitrogen 20 Creatinine 0.35 L Est Glomerular Filtrat Rate mL/min Glucose Level 173 Calcium Level 8.7 Test 12/19/18 12:42 Bedside Glucose 163 Medications Medications Current Medications IV Flush (NS 10 ml) 10 ml Q8 IV Last administered on 12/19/18at 05:48; Admin Dose 10 ML; Start 11/26/18 at 22:00 Ascorbic Acid (Vitamin C) 500 mg DAILY GTB Last administered on 12/19/18at 09:55; Admin Dose 500 MG; Start 11/27/18 at 09:00 Baclofen (Lioresal) 20 mg TID GTB Last administered on 12/19/18at 12:40; Admin Dose 20 MG; Start 11/26/18 at 21:00 Cholecalciferol (Vitamin D) 2,000 unit DAILY GTB Last administered on 12/19/18at 09:55; Admin Dose 2,000 UNIT; Start 11/27/18 at 09:00 Cyanocobalamin (Vitamin B12) 1,000 mcg DAILY GTB Last administered on 12/19/18at 09:55; Admin Dose 1,000 MCG; Start 11/27/18 at 09:00 Miscellaneous Information 1 ea NOTE XX ; Start 11/26/18 at 18:30 Glucose (Glutose) 15 gm Q15M PRN PO DECREASED GLUCOSE; Start 11/26/18 at 18:30 Glucose (Glutose) 22.5 gm Q15M PRN PO DECREASED GLUCOSE; Start 11/26/18 at 18:30 Dextrose (D50w Syringe) 25 ml Q15M PRN IV DECREASED GLUCOSE; Start 11/26/18 at 18:30 Dextrose (D50w Syringe) 50 ml Q15M PRN IV DECREASED GLUCOSE; Start 11/26/18 at 18:30 Glucagon (Glucagen) 1 mg Q15M PRN IM DECREASED GLUCOSE; Start 11/26/18 at 18:30 Glucose (Glutose) 15 gm Q15M PRN BUCCAL DECREASED GLUCOSE; Start 11/26/18 at 18:30 Diagnostic Test (Pha) (Accu-Chek) 1 ea 02 XX Last administered on 12/11/18 01:49; Admin Dose 1 EA; Start 11/27/18 at 02:00 Lorazepam (Ativan) 1 mg Q2H PRN IV SEIZURES Last administered on 11/29/18 14:39; Admin Dose 1 MG; Start 11/27/18 at 18:00 Aspirin (Aspirin) 81 mg DAILY GTB Last administered on 12/19/18 09:55; Admin Dose 81 MG; Start 11/29/18 at 10:00 Levetiracetam 100 ml @ 400 mls/hr Q12 IVPB Last administered on 12/19/18 09:55; Admin Dose 400 MLS/HR; Start 11/29/18 at 21:00 Acetaminophen (Tylenol Liquid) 650 mg Q4H PRN GTB MILD PAIN(1-3)OR ELEVATED TEMP Last administered on 12/12/18 16:18; Admin Dose 650 MG; Start 12/03/18 at 02:00 Insulin Aspart (Novolog Insulin Pen) NOVOLOG *MILD* ALGORI... Q6 SC Last admi nistered on 12/19/18 12:44; Admin Dose 1 UNIT; Start 12/09/18 at 18:00 Alteplase, Recombinant (Cathflo (Activase)) 2 mg MAY REPEAT X1 PRN CATHETER IF CATHETER REMAINS OCCULUDED Last administered on 12/14/18 21:48; Admin Dose 2 MG; Start 12/09/18 at 23:30 Albuterol/ Ipratropium (Duoneb) 3 ml Q6HWA RESP THERAPY HHN Last administered on 12/19/18 13:19; Admin Dose 3 ML; Start 12/12/18 at 14:00 Albuterol/ Ipratropium (Duoneb) 3 ml Q4H RESP THERAPY PRN HHN SHORTNESS OF BREATH Last administered on 12/15/18 19:48; Admin Dose 3 ML; Start 12/12/18 at 12:30 Ceftazidime 50 ml @ 100 mls/hr Q8 IVPB Last administered on 12/19/18 05:48; Admin Dose 100 MLS/HR; Start 12/12/18 at 18:00 Metronidazole 100 ml @ 100 mls/hr Q8 IVPB Last administered on 12/19/18 06:26; Admin Dose 100 MLS/HR; Start 12/12/18 at 17:00 Collagenase (Santyl) 1 applic DAILY TOP Last administered on 12/19/18 09:55; Admin Dose 1 APPLIC; Start 12/13/18 at 10:30 Sodium Hypochlorite (Dakins Diluted (1/40)) 1 applic BID IRR Last administered on 12/19/18 09:57; Admin Dose 1 APPLIC; Start 12/17/18 at 22:00 MAITE VAZQUEZ December 19, 2018 13:38
[2018-12-19 15:00] VITALS: BP 124/57; PULSE 92; RESP 19
--- NOTE | 2018-12-19 19:11 | CONS ---
Assessment/Plan Assessment/Plan Assessment/Plan (Daily) # sepsis, endovascular infection, respiratory - recurrent sepsis due to bacteremia and pneumonia +/- wound infection. Procalcitonin was 1.96 on 12/07/2018 - leukocytosis and fever resolved - bacteremia d/t bacteroides fragilis 12/07/2018 possibly d/t intra-abdominal infection - VAP d/t pseudomonas 12/08/2018 and 12/13/2018 - s/p septic shock due to probable UTI - s/p coag negative Staph in blood cultures on 11/26/2018, probable contaminant - colonization of the airway by pseudomonas and corynebacteria on 11/26/2018; MDR pseudomonas in trach aspirate cx from 12/08/2018 likely a colonizer - h/o sepsis due to bacteremia and pneumonia - h/o bacteremia: blood cultures grew enterococcus faecalis on 09/17/2018 secondary to R hip wound infection as its wound culture on 09/16/2018 grew E. faecalis as well - h/o recurrent acute on chronic hypoxemic respiratory failure secondary to secretion retention, mucous plugging, major left lung atelectasis, severe shunting - h/o probable aspiration pneumonia. - h/o pneumonia due to pseudomonas on 09/30/2018. s/p Levaquin (10/03/18- 10/07/2018), Meropenem (restart 09/30/2018-10/03/18, 10/12/18 - 10/19/2018) and empiric Amikacin (09/30/18-10/03/18) - H/o intubation on 09/30/2018 - H/o tracheostomy on 10/04/2018 - h/o pseudomonas in urine culture on 09/17/2018 with mild pyuria; treated with Cefepime (09/20/2018-09/25/2018) # infection of wound, OM of R hip, pressure ulcer - colonization of the wound of R hip by pseudomonas (wound culture on 10/31/2018), acinetobacter (wound culture on 11/27/2018) - h/o repeat debridement at [facility] on 11/03/[address]. [address] Pierson, her p lastic surgeon at [facility], the wound appeared clean during the I&D (my conversation with him on 11/06/2018) - H/o stage sacral decubitus ulcer extending to bilateral buttocks. She reportedly had total hip dislocation and exposed femoral head. CT pelvis showed e/o OM. Pt complete IV vancomycin (09/17/2018-10/29/2018) for sacral OM associated with E. faecalis - H/o sharp excisional debridement down to and including bone of the sacrum on 08/22/2018 and 09/19/2018 - H/o excision of R hip ulcer, girdlestone resection arthroplasty and flap reconstruction 09/23/2018. The surgical pathology showed osteomyelitis of R hip bone, soft tissue cellulitis, and bony margin of excision was free of the disease - according to Dr. Pierson who performed the wound debridement, Pt needs wound care until granulation tissue builds and infection is cleared. Then he would decide if Pt should get repeat closure or not - XR of R hip on 11/09/2009 showed the remaining R femoral shaft in transverse orientation and with lateral deviation - h/o removal of devitalized/necrotic tissue by Dr. Pierson on 10/07/2018 # renal/ - funguria, recurrent; Pt completed 3 day course of fluconazole (12/04-12/06/2018). Ramires was changed on 12/04/2018. - hematuria on 11/26/2018 - h/o moderate L hydronephrosis per renal US # heme, neuro - h/o acute on chronic anemia requiring PRBC - chronic metabolic encephalopathy - supranuclear palsy # endo, cardiac - diabetes mellitus - A fib with RVR - chronic diastolic HF (EF 40-45% with grade 1 DD per 2D Echo 10/24/2018) - h/o hypertension # allergy - penicillin allergy (throat swelling) but Pt tolerates cefepime, ceftazidime, meropenem Recommendations: - Continue Ceftazidime (12/12/2018 - ); s/p jose (restart 12/07-12/12/2018) and vancomycin (12/07-12/14/2018)-- plan to finish 7-10 days depending on procalcitonin resolution - Continue Flagyl IV (for possible intra abdominal infection in result of blood cxs +Bacteroides fragilis)--14 days from first neg bcx - Consider CT abdomen pelvis to determine if colonic perf if full aggressive care desired - Serial procalc periodically prior to abx cessation - ordered for AM 12/20/18 - Blood cx (NGTD) Above plan d/w via [employer] Consultation Date/Type/Reason Admit Date/Time Nov 26, 2018 at 20:42 Initial Consult Date 11/27/18 Requesting Provider: NADEEN CHO Date/Time of Note DATE: 12/19/18 TIME: 19:03 24 HR Interval Summary Free Text/Dictation No cute changes in patients condition, has remained afebrile. Subjective hx not possible: pt non-verbal Exam/Review of Systems Exam Vitals Vital Signs Date Temp Pulse Resp B/P (MAP) Pulse Ox O2 O2 Flow FiO2 Time Delivery Rate 12/19/18 97.4 92 19 124/57 96 15:00 (79) 12/19/18 Aerosol 5.0 28 13:24 T Tube Intake and Output 12/18/18 12/18/18 12/19/18 1515:00 23:00 07:00 IntakeIntake Total 100 ml 1030 ml 1030 ml OutputOutput Total 500 ml 400 ml BalanceBalance -400 ml 630 ml 1030 ml Exam Constitutional: non-verbal, frail Psych: confusion Head: normocephalic, atraumatic Eyes: nl conjunctiva, nl lids ENMT: nl external ears & nose, nl nasal mucosa & septum, mucosa pink and moist Neck: other (trach site c/d/i) Respiratory: clear to auscultation, normal air movement, on cool aerosol Cardiovascular: regular rate and rhythm, nl pulses. S.Tachy Gastrointestinal: soft, non-tender, other (GT) Genitourinary - Female: other (FC) Musculoskeletal: other (contractured, R hip wound covered with dressing c/d/i); No swelling Extremities: No edema Neurological: lethargic, unresponsive Skin: rash or lesions (+R hip and coccyx wound covered with dressing c/d/i) Neck: other (trach midline site c/d/i) Results Result Diagram: 12/19/18 0504 12/19/18 0504 Results 24hrs Laboratory Tests Test 12/19/18 00:24 12/19/18 05:04 12/19/18 05:50 12/19/18 12:42 Bedside Glucose 148 157 163 White Blood Count 8.5 Red Blood Count 2.94 L Hemoglobin 7.5 L Hematocrit 24.6 L Mean Corpuscular 83.7 Volume Mean Corpuscular 25.5 L Hemoglobin Mean Corpuscular 30.5 L Hemoglobin Concent Red Cell 18.2 H Distribution Width Platelet Count 309 Mean Platelet Volume 10.5 H Immature 0.500 H Granulocytes % Neutrophils % 75.5 Lymphocytes % 13.3 L Monocytes % 6.7 Eosinophils % 3.5 Basophils % 0.5 Nucleated Red Blood 0.0 Cells % Immature 0.040 H Granulocytes # Neutrophils # 6.4 Lymphocytes # 1.1 Monocytes # 0.6 Eosinophils # 0.3 Basophils # 0.0 Nucleated Red Blood 0.0 Cells # Sodium Level 137 Potassium Level 4.7 Chloride Level 106 Carbon Dioxide Level 26 Anion Gap 5 Blood Urea Nitrogen 20 Creatinine 0.35 L Est Glomerular Filtrat Rate mL/min Glucose Level 173 Calcium Level 8.7 Test 12/19/18 17:41 Bedside Glucose 192 Medications Medication Current Medications IV Flush (NS 10 ml) 10 ml Q8 IV Last administered on 12/19/18at 14:15; Admin Dose 10 ML; Start 11/26/18 at 22:00 Ascorbic Acid (Vitamin C) 500 mg DAILY GTB Last administered on 12/19/18at 09:55; Admin Dose 500 MG; Start 11/27/18 at 09:00 Baclofen (Lioresal) 20 mg TID GTB Last administered on 12/19/18at 12:40; Admin Dose 20 MG; Start 11/26/18 at 21:00 Cholecalciferol (Vitamin D) 2,000 unit DAILY GTB Last administered on 12/19/18at 09:55; Admin Dose 2,000 UNIT; Start 11/27/18 at 09:00 Cyanocobalamin (Vitamin B12) 1,000 mcg DAILY GTB Last administered on 12/19/18at 09:55; Admin Dose 1,000 MCG; Start 11/27/18 at 09:00 Miscellaneous Information 1 ea NOTE XX ; Start 11/26/18 at 18:30 Glucose (Glutose) 15 gm Q15M PRN PO DECREASED GLUCOSE; Start 11/26/18 at 18:30 Glucose (Glutose) 22.5 gm Q15M PRN PO DECREASED GLUCOSE; Start 11/26/18 at 18:30 Dextrose (D50w Syringe) 25 ml Q15M PRN IV DECREASED GLUCOSE; Start 11/26/18 at 18:30 Dextrose (D50w Syringe) 50 ml Q15M PRN IV DECREASED GLUCOSE; Start 11/26/18 at 18:30 Glucagon (Glucagen) 1 mg Q15M PRN IM DECREASED GLUCOSE; Start 11/26/18 at 18:30 Glucose (Glutose) 15 gm Q15M PRN BUCCAL DECREASED GLUCOSE; Start 11/26/18 at 18:30 Diagnostic Test (Pha) (Accu-Chek) 1 ea 02 XX Last administered on 12/11/18 01:49; Admin Dose 1 EA; Start 11/27/18 at 02:00 Lorazepam (Ativan) 1 mg Q2H PRN IV SEIZURES Last administered on 11/29/18 14:39; Admin Dose 1 MG; Start 11/27/18 at 18:00 Aspirin (Aspirin) 81 mg DAILY GTB Last administered on 12/19/18 09:55; Admin Dose 81 MG; Start 11/29/18 at 10:00 Levetiracetam 100 ml @ 400 mls/hr Q12 IVPB Last administered on 12/19/18 09:55; Admin Dose 400 MLS/HR; Start 11/29/18 at 21:00 Acetaminophen (Tylenol Liquid) 650 mg Q4H PRN GTB MILD PAIN(1-3)OR ELEVATED TEMP Last administered on 12/12/18 16:18; Admin Dose 650 MG; Start 12/03/18 at 02:00 Insulin Aspart (Novolog Insulin Pen) NOVOLOG *MILD* ALGORI... Q6 SC Last administered on 12/19/18 17:59; Admin Dose 2 UNIT; Start 12/09/18 at 18:00 Alteplase, Recombinant (Cathflo (Activase)) 2 mg MAY REPEAT X1 PRN CATHETER IF C ATHETER REMAINS OCCULUDED Last administered on 12/14/18 21:48; Admin Dose 2 MG; Start 12/09/18 at 23:30 Albuterol/ Ipratropium (Duoneb) 3 ml Q6HWA RESP THERAPY HHN Last administered on 12/19/18 13:19; Admin Dose 3 ML; Start 12/12/18 at 14:00 Albuterol/ Ipratropium (Duoneb) 3 ml Q4H RESP THERAPY PRN HHN SHORTNESS OF BREATH Last administered on 12/15/18 19:48; Admin Dose 3 ML; Start 12/12/18 at 1 2:30 Ceftazidime 50 ml @ 100 mls/hr Q8 IVPB Last administered on 12/19/18 14:15; Admin Dose 100 MLS/HR; Start 12/12/18 at 18:00 Metronidazole 100 ml @ 100 mls/hr Q8 IVPB Last administered on 12/19/18 14:16; Admin Dose 100 MLS/HR; Start 12/12/18 at 17:00 Collagenase (Santyl) 1 applic DAILY TOP Last administered on 12/19/18 09:55; Admin Dose 1 APPLIC; Start 12/13/18 at 10:30 Sodium Hypochlorite (Dakins Diluted (1/40)) 1 applic BID IRR Last administered on 12/19/18 09:57; Admin Dose 1 APPLIC; Start 12/17/18 at 22:00 AGNES HERNANDEZ NP December 19, 2018 19:11
[2018-12-19 19:57] VITALS: BP 83/51; PULSE 88; RESP 18
[2018-12-19 20:00] VITALS: BP 101/51; PULSE 78; RESP 18
[2018-12-20] MEDS: INSULIN ASPART [NOVOLOG] 3 ML PEN SC SCH ×4 (00:50→17:36)
[2018-12-20] MEDS: ACCU-CHEK XX SCH (01:16)
[2018-12-20 02:00] VITALS: BP_SYST 100; BP_SYST 89; BP_DIAS 46; BP_DIAS 50; BP_DIAS 54; PULSE 80; RESP 18
[2018-12-20] MEDS: CEFTAZIDIME 1GM/50 ML (PMX) 50 ML IVPB SCH ×3 (05:34→22:24)
[2018-12-20] MEDS: metroNIDAZOLE 500 MG/NS (PMX) 100 ML IVPB SCH ×3 (06:09→22:21)
[2018-12-20 07:59] VITALS: BP 87/52; PULSE 71; RESP 18
[2018-12-20] MEDS: ASPIRIN 81 MG TAB GTB SCH (08:29)
[2018-12-20] MEDS: CYANOCOBALAMIN 500 MCG TAB GTB SCH (08:29)
[2018-12-20] MEDS: CHOLECALCIFEROL 2,000 UNIT CAP GTB SCH (08:30)
[2018-12-20] MEDS: BACLOFEN 10 MG TAB GTB SCH ×3 (08:30→20:43)
[2018-12-20] MEDS: COLLAGENASE 5 GM (UD JAR) TOP SCH (08:30)
[2018-12-20] MEDS: ASCORBIC ACID 500 MG TAB GTB SCH (08:30)
[2018-12-20] MEDS: DAKINS 0.0125%(1/40) 473 ML SOLUTION IRR SCH ×2 (08:31→20:52)
[2018-12-20] MEDS: LEVETIRACETAM 1000 MG (PMX) 100 ML IVPB SCH ×2 (08:31→21:07)
[2018-12-20] MEDS: BALSAM PERU/CASTOR OIL 60 GM TUBE TOP SCH (08:31)
[2018-12-20 08:33] VITALS: BP 103/53; PULSE 73
[2018-12-20] MEDS: ALBUTEROL/IPRATROPIUM (NEB) 3 ML AMP HHN SCH ×3 (10:03→21:28)
--- NOTE | 2018-12-20 11:55 | PN ---
Date/Time of Note Date/Time of Note DATE: 12/20/18 TIME: 11:49 Assessment/Plan VTE Prophylaxis Risk score (from [facility])>0 risk: 3 SCD applied (from [facility]): No SCD contraindicated: other Pharmacological prophylaxis: other Pharm contraindication: other Lines/Catheters IV Catheter Type (from [facility] PICC Line Central line still needed: Yes Urinary Cath still in place: Yes Reason Cath still needed: urinary retention Assessment/Plan Hospital Course Assessment/Plan -Hyperkalemia - Kayexalate 30 gm GT x1 - BMP am - SEPSIS -per ID - Hypernatremia - monitor BMP - If no improvement; will get nephrology consult -Atrial fibrillation/ flutter with rapid ventricular response. Patient is currently in sinus rhythm. - Continue amiodarone. Dr. Monson is following in cardiology consultation. -Progressive supranuclear palsy -Respiratory failure with tracheostomy patient is currently on cool aerosol mist. -Chronic encephalopathy -Decubitus ulcer of the right hip and sacrum, status post Girdlestone procedure of the right hip with flap in September 2018, followed by removal of necrotic tissue by Dr. Triplett at [facility]. - sp evaluation by ortho- dr matos -Right hip wound infection with OM of R hip, completed treatment with antibiotics. - surgery follows -Wound dehiscence, s/p repeat debridement at [facility] on 11/03/2018. -Diabetes - GLYCEMIC control -Chronic diastolic CHF -Dysphagia with GT - aspiration precautions -Anemia of chronic disease -Failure to thrive, Dr. Prieto is following in palliative care consultation. -DNR/DNI status Further recommendations based on clinical course. Plan of care discussed with Dr. Shannon. staff Result Diagram: 12/20/1852312/20/18523 Results 24hrs Laboratory Tests Test 12/19/18 12:42 12/19/18 17:41 12/20/18 00:47 12/20/18 05:24 Bedside Glucose 163 192 200 White Blood Count 7.3 Red Blood Count 3.35 L Hemoglobin 8.6 L Hematocrit 28.5 L Mean Corpuscular 85.1 Volume Mean Corpuscular 25.7 L Hemoglobin Mean Corpuscular 30.2 L Hemoglobin Concent Red Cell 18.6 H Distribution Width Platelet Count 314 Mean Platelet Volume 10.6 H Immature 0.600 H Granulocytes % Neutrophils % 73.0 Lymphocytes % 16.3 Monocytes % 7.7 Eosinophils % 1.8 Basophils % 0.6 Nucleated Red Blood 0.0 Cells % Immature 0.040 H Granulocytes # Neutrophils # 5.3 Lymphocytes # 1.2 Monocytes # 0.6 Eosinophils # 0.1 Basophils # 0.0 Nucleated Red Blood 0.0 Cells # Sodium Level 136 Potassium Level 5.5 H Chloride Level 106 Carbon Dioxide Level 25 Anion Gap 5 Blood Urea Nitrogen 17 Creatinine 0.29 L Est Glomerular Filtrat Rate mL/min Glucose Level 156 Calcium Level 8.7 Test 12/20/18 05:32 Bedside Glucose 166 Subjective 24 Hr Interval Summary Free Text/Dictation nad- -granddaughter refused for SNF placement; Wants to take patient home - will get case management social worker consult for Home Health - no new events reported last - staff Constitutional: requiring O2 Exam/Review of Systems Exam Vitals Vital Signs Date Temp Pulse Resp B/P (MAP) Pulse Ox O2 O2 Flow FiO2 Time Delivery Rate 12/20/18 5.0 28 10:03 12/20/18 77 20 96 Aerosol 10:03 T Tube 12/20/18 103/53 08:33 (70) 12/20/18 98.8 07:59 Intake and Output 12/19/18 12/19/18 12/20/18 1515:00 23:00 07:00 IntakeIntake Total 200 ml 1030 ml 1030 ml OutputOutput Total 800 ml 400 ml BalanceBalance -600 ml 630 ml 1030 ml Constitutional: non-verbal Psych: nl mood/affect Eyes: nl sclera ENMT: nl external ears & nose Neck: other (trach inact ) Respiratory: diminished breath sounds Cardiovascular: nl pulses, other Gastrointestinal: soft, other (gt intact) Musculoskeletal: joint tenderness, muscle weakness, range of motion Neurological: unresponsive Results Results 24hrs Laboratory Tests Test 12/19/18 12:42 12/19/18 17:41 12/20/18 00:47 12/20/18 05:24 Bedside Glucose 163 192 200 White Blood Count 7.3 Red Blood Count 3.35 L Hemoglobin 8.6 L Hematocrit 28.5 L Mean Corpuscular 85.1 Volume Mean Corpuscular 25.7 L Hemoglobin Mean Corpuscular 30.2 L Hemoglobin Concent Red Cell 18.6 H Distribution Width Platelet Count 314 Mean Platelet Volume 10.6 H Immature 0.600 H Granulocytes % Neutrophils % 73.0 Lymphocytes % 16.3 Monocytes % 7.7 Eosinophils % 1.8 Basophils % 0.6 Nucleated Red Blood 0.0 Cells % Immature 0.040 H Granulocytes # Neutrophils # 5.3 Lymphocytes # 1.2 Monocytes # 0.6 Eosinophils # 0.1 Basophils # 0.0 Nucleated Red Blood 0.0 Cells # Sodium Level 136 Potassium Level 5.5 H Chloride Level 106 Carbon Dioxide Level 25 Anion Gap 5 Blood Urea Nitrogen 17 Creatinine 0.29 L Est Glomerular Filtrat Rate mL/min Glucose Level 156 Calcium Level 8.7 Test 12/20/18 05:32 Bedside Glucose 166 Medications Medication Current Medications IV Flush (NS 10 ml) 10 ml Q8 IV Last administered on 12/20/18 05:34; Admin Dose 10 ML; Start 11/26/18 at 22:00 Ascorbic Acid (Vitamin C) 500 mg DAILY GTB Last administered on 12/20/18 08:30; Admin Dose 500 MG; Start 11/27/18 at 09:00 Baclofen (Lioresal) 20 mg TID GTB Last administered on 12/20/18 08:30; Admin Dose 20 MG; Start 11/26/18 at 21:00 Cholecalciferol (Vitamin D) 2,000 unit DAILY GTB Last administered on 12/20/18 08:30; Admin Dose 2,000 UNIT; Start 11/27/18 at 09:00 Cyanocobalamin (Vitamin B12) 1,000 mcg DAILY GTB Last administered on 12/20/18 08:29; Admin Dose 1,000 MCG; Start 11/27/18 at 09:00 Miscellaneous Information 1 ea NOTE XX ; Start 11/26/18 at 18:30 Glucose (Glutose) 15 gm Q15M PRN PO DECREASED GLUCOSE; Start 11/26/18 at 18:30 Glucose (Glutose) 22.5 gm Q15M PRN PO DECREASED GLUCOSE; Start 11/26/18 at 18:30 Dextrose (D50w Syringe) 25 ml Q15M PRN IV DECREASED GLUCOSE; Start 11/26/18 at 18:30 Dextrose (D50w Syringe) 50 ml Q15M PRN IV DECREASED GLUCOSE; Start 11/26/18 at 18:30 Glucagon (Glucagen) 1 mg Q15M PRN IM DECREASED GLUCOSE; Start 11/26/18 at 18:30 Glucose (Glutose) 15 gm Q15M PRN BUCCAL DECREASED GLUCOSE; Start 11/26/18 at 18:30 Diagnostic Test (Pha) (Accu-Chek) 1 ea 02 XX Last administered on 12/11/18 01:49; Admin Dose 1 EA; Start 11/27/18 at 02:00 Lorazepam (Ativan) 1 mg Q2H PRN IV SEIZURES Last administered on 11/29/18 14:39; Admin Dose 1 MG; Start 11/27/18 at 18:00 Aspirin (Aspirin) 81 mg DAILY GTB Last administered on 12/20/18 08:29; Admin Dose 81 MG; Start 11/29/18 at 10:00 Levetiracetam 100 ml @ 400 mls/hr Q12 IVPB Last administered on 12/20/18 08:31; Admin Dose 400 MLS/HR; Start 11/29/18 at 21:00 Acetaminophen (Tylenol Liquid) 650 mg Q4H PRN GTB MILD PAIN(1-3)OR ELEVATED TEMP Last administered on 12/12/18 16:18; Admin Dose 650 MG; Start 12/03/18 at 02:00 Insulin Aspart (Novolog Insulin Pen) NOVOLOG *MILD* ALGORI... Q6 SC Last administered on 12/20/18 05:39; Admin Dose 1 UNIT; Start 12/09/18 at 18:00 Alteplase, Recombinant (Cathflo (Activase)) 2 mg MAY REPEAT X1 PRN CATHETER IF CATHETER REMAINS OCCULUDED Last administered on 12/14/18 21:48; Admin Dose 2 MG; Start 12/09/18 at 23:30 Albuterol/ Ipratropium (Duoneb) 3 ml Q6HWA RESP THERAPY HHN Last administered on 12/20/18 10:03; Admin Dose 3 ML; Start 12/12/18 at 14:00 Albuterol/ Ipratropium (Duoneb) 3 ml Q4H RESP THERAPY PRN HHN SHORTNESS OF BREATH Last administered on 12/15/18 19:48; Admin Dose 3 ML; Start 12/12/18 at 12:30 Ceftazidime 50 ml @ 100 mls/hr Q8 IVPB Last administered on 5/17/19at 05:34; Admin Dose 100 MLS/HR; Start 12/12/18 at 18:00 Metronidazole 100 ml @ 100 mls/hr Q8 IVPB Last administered on 12/20/18at 06:09; Admin Dose 100 MLS/HR; Start 12/12/18 at 17:00 Collagenase (Santyl) 1 applic DAILY TOP Last administered on 12/20/18at 08:30; Admin Dose 1 APPLIC; Start 12/13/18 at 10:30 Sodium Hypochlorite (Dakins Diluted (1/40)) 1 applic BID IRR Last administered on 12/20/18at 08:31; Admin Dose 1 APPLIC; Start 12/17/18 at 22:00 Sodium Polystyrene Sulfonate (Kayexelate 15 Gm Kit (Powder+Sorbitol)) 30 gm ONCE ONCE GTB ; Start 12/20/18 at 12:00; Stop 12/20/18 at 12:01 NADEEN CHO December 20, 2018 11:55
[2018-12-20] MEDS ORDERED: SODIUM POLYSTYRENE 15 GM KIT (POWDER + SORBITOL) GTB ONE (12:00)
--- NOTE | 2018-12-20 13:39 | CONS ---
Assessment/Plan Assessment/Plan Hospital Course (Demo Recall) IMPRESSION: 1. Atrial fibrillation/atrial flutter with rapid ventricular response-now in SR 2. Hypotension/shock state, likely septic. 3. History of cardiomyopathy with mildly depressed left ventricular ejection fraction approximately 40% to 45%. 4. History of congestive heart failure, systolic, chronic. 5. Possible pneumonia. 6. Sepsis. 7. Leukocytosis. 8. Anemia requiring transfusions. 9. Hypernatremia. 10. Coagulopathy. 11. Urinary tract infection. 12. Seizures 14. hyperkalemia-improved Recc: -Now on med surg -serial ecg's -Continue abx's and f/u cx data -Continue keppra -Now on asa, follow for any bleeding complications -systemic anticoag held due to anemia requiring transfusions Consultation Date/Type/Reason Admit Date/Time Nov 26, 2018 at 20:42 Initial Consult Date 11/27/18 Type of Consult Cardiology Reason for Consultation AF Requesting Provider: NADEEN CHO Date/Time of Note DATE: 12/20/18 TIME: 13:37 Exam/Review of Systems Vital Signs Vitals Vital Signs Date Temp Pulse Resp B/P (MAP) Pulse Ox O2 O2 Flow FiO2 Time Delivery Rate 12/20/18 5.0 28 10:03 12/20/18 77 20 96 Aerosol 10:03 T Tube 12/20/18 103/53 08:33 (70) 12/20/18 98.8 07:59 Intake and Output 12/19/18 12/19/18 12/20/18 1515:00 23:00 07:00 IntakeIntake Total 200 ml 1030 ml 1030 ml OutputOutput Total 800 ml 400 ml BalanceBalance -600 ml 630 ml 1030 ml Exam Exam Review of Systems: CONSTITUTIONAL: No fevers, chills. PULMONARY: No sob CARDIOVASCULAR: No chest pain/palpitations GASTROINTESTINAL: No nausea/vomiting. GENITOURINARY: No hematuria/dysuria. MUSCULOSKELETAL: No myagias/arthalgias. PSYCHIATRIC: The patient denies depression. NEUROLOGIC: encephalopathic Constitutional: other (encephalopathic) Head: normocephalic ENMT: mucosa pink and moist Neck: supple, jvd (9 cm wwter) Respiratory: diminished breath sounds (at bases/B) Cardiovascular: regular rate and rhythm Gastrointestinal: soft, non-tender Musculoskeletal: muscle tone (normal) Extremities: edema (none) Neurological: unresponsive Labs Result Diagram: 12/20/1852312/20/18523 Results 24hrs Laboratory Tests Test 12/19/18 17:41 12/20/18 00:47 12/20/18 05:24 12/20/18 05:32 Bedside Glucose 192 200 166 White Blood Count 7.3 Red Blood Count 3.35 L Hemoglobin 8.6 L Hematocrit 28.5 L Mean Corpuscular 85.1 Volume Mean Corpuscular 25.7 L Hemoglobin Mean Corpuscular 30.2 L Hemoglobin Concent Red Cell 18.6 H Distribution Width Platelet Count 314 Mean Platelet Volume 10.6 H Immature 0.600 H Granulocytes % Neutrophils % 73.0 Lymphocytes % 16.3 Monocytes % 7.7 Eosinophils % 1.8 Basophils % 0.6 Nucleated Red Blood 0.0 Cells % Immature 0.040 H Granulocytes # Neutrophils # 5.3 Lymphocytes # 1.2 Monocytes # 0.6 Eosinophils # 0.1 Basophils # 0.0 Nucleated Red Blood 0.0 Cells # Sodium Level 136 Potassium Level 5.5 H Chloride Level 106 Carbon Dioxide Level 25 Anion Gap 5 Blood Urea Nitrogen 17 Creatinine 0.29 L Est Glomerular Filtrat Rate mL/min Glucose Level 156 Calcium Level 8.7 Procalcitonin 2.04 H Test 12/20/18 12:00 Bedside Glucose 180 Medications Medications Current Medications IV Flush (NS 10 ml) 10 ml Q8 IV Last administered on 12/20/18at 05:34; Admin Dose 10 ML; Start 11/26/18 at 22:00 Ascorbic Acid (Vitamin C) 500 mg DAILY GTB Last administered on 12/20/18at 08:30; Admin Dose 500 MG; Start 11/27/18 at 09:00 Baclofen (Lioresal) 20 mg TID GTB Last administered on 12/20/18 12:05; Admin Dose 20 MG; Start 11/26/18 at 21:00 Cholecalciferol (Vitamin D) 2,000 unit DAILY GTB Last administered on 12/20/18at 08:30; Admin Dose 2,000 UNIT; Start 11/27/18 at 09:00 Cyanocobalamin (Vitamin B12) 1,000 mcg DAILY GTB Last administered on 12/20/18at 08:29; Admin Dose 1,000 MCG; Start 11/27/18 at 09:00 Miscellaneous Information 1 ea NOTE XX ; Start 11/26/18 at 18:30 Glucose (Glutose) 15 gm Q15M PRN PO DECREASED GLUCOSE; Start 11/26/18 at 18:30 Glucose (Glutose) 22.5 gm Q15M PRN PO DECREASED GLUCOSE; Start 11/26/18 at 18:30 Dextrose (D50w Syringe) 25 ml Q15M PRN IV DECREASED GLUCOSE; Start 11/26/18 at 18:30 Dextrose (D50w Syringe) 50 ml Q15M PRN IV DECREASED GLUCOSE; Start 11/26/18 at 18:30 Glucagon (Glucagen) 1 mg Q15M PRN IM DECREASED GLUCOSE; Start 11/26/18 at 18:30 Glucose (Glutose) 15 gm Q15M PRN BUCCAL DECREASED GLUCOSE; Start 11/26/18 at 18:30 Diagnostic Test (Pha) (Accu-Chek) 1 ea 02 XX Last administered on 12/11/18 01:49; Admin Dose 1 EA; Start 11/27/18 at 02:00 Lorazepam (Ativan) 1 mg Q2H PRN IV SEIZURES Last administered on 11/29/18 14:39; Admin Dose 1 MG; Start 11/27/18 at 18:00 Aspirin (Aspirin) 81 mg DAILY GTB Last administered on 12/20/18 08:29; Admin Dose 81 MG; Start 11/29/18 at 10:00 Levetiracetam 100 ml @ 400 mls/hr Q12 IVPB Last administered on 12/20/18 08:31; Admin Dose 400 MLS/HR; Start 11/29/18 at 21:00 Acetaminophen (Tylenol Liquid) 650 mg Q4H PRN GTB MILD PAIN(1-3)OR ELEVATED TEMP Last administered on 12/12/18 16:18; Admin Dose 650 MG; Start 12/03/18 at 02:00 Insulin Aspart (Novolog Insulin Pen) NOVOLOG *MILD* ALGORI... Q6 SC Last administered on 12/20/18 12:04; Admin Dose 1 UNIT; Start 12/09/18 at 18:00 Alteplase, Recombinant (Cathflo (Activase)) 2 mg MAY REPEAT X1 PRN CATHETER IF CATHETER REMAINS OCCULUDED Last administered on 12/14/18 21:48; Admin Dose 2 MG; Start 12/09/18 at 23:30 Albuterol/ Ipratropium (Duoneb) 3 ml Q6HWA RESP THERAPY HHN Last administered on 12/20/18 10:03; Admin Dose 3 ML; Start 12/12/18 at 14:00 Albuterol/ Ipratropium (Duoneb) 3 ml Q4H RESP THERAPY PRN HHN SHORTNESS OF BREATH Last administered on 12/15/18 19:48; Admin Dose 3 ML; Start 12/12/18 at 12:30 Ceftazidime 50 ml @ 100 mls/hr Q8 IVPB Last administered on 12/20/18 05:34; Admin Dose 100 MLS/HR; Start 12/12/18 at 18:00 Metronidazole 100 ml @ 100 mls/hr Q8 IVPB Last administered on 12/20/18 06:09; Admin Dose 100 MLS/HR; Start 12/12/18 at 17:00 Collagenase (Santyl) 1 applic DAILY TOP Last administered on 12/20/18 08:30; Admin Dose 1 APPLIC; Start 12/13/18 at 10:30 Sodium Hypochlorite (Dakins Diluted ()) 1 applic BID IRR Last administered on 12/20/18 08:31; Admin Dose 1 APPLIC; Start 12/17/18 at 22:00 MAITE VAZQUEZ December 20, 2018 13:39
[2018-12-20 14:46] VITALS: PULSE 83; RESP 18
--- NOTE | 2018-12-20 15:51 | CONS ---
Assessment/Plan Assessment/Plan Hospital Course (Demo Recall) # sepsis, endovascular infection, respiratory - recurrent sepsis due to bacteremia and pneumonia +/- wound infection. Procalcitonin was 1.96 on 12/07/2018 - leukocytosis and fever resolved - bacteremia d/t bacteroides fragilis 12/07/2018 possibly d/t intra-abdominal infection - VAP d/t pseudomonas 12/08/2018 and 12/13/2018 - s/p septic shock due to probable UTI - s/p coag negative Staph in blood cultures on 11/26/2018, probable contaminant - colonization of the airway by pseudomonas and corynebacteria on 11/26/2018; MDR pseudomonas in trach aspirate cx from 12/08/2018 likely a colonizer - h/o sepsis due to bacteremia and pneumonia - h/o bacteremia: blood cultures grew enterococcus faecalis on 09/17/2018 secondary to R hip wound infection as its wound culture on 09/16/2018 grew E. faecalis as well - h/o recurrent acute on chronic hypoxemic respiratory failure secondary to secretion retention, mucous plugging, major left lung atelectasis, severe shunting - h/o probable aspiration pneumonia. - h/o pneumonia due to pseudomonas on 09/30/2018. s/p Levaquin (10/03/18- 10/07/2018), Meropenem (restart 09/30/2018-10/03/18, 10/12/18 - 10/19/2018) and empiric Amikacin (09/30/18-10/03/18) - H/o intubation on 09/30/2018 - H/o tracheostomy on 10/04/2018 - h/o pseudomonas in urine culture on 09/17/2018 with mild pyuria; treated with Cefepime (09/20/2018-09/25/2018) # infection of wound, OM of R hip, pressure ulcer - colonization of the wound of R hip by pseudomonas (wound culture on 10/31/2018), acinetobacter (wound culture on 11/27/2018) - h/o repeat debridement at [facility] on 11/03/[address]. [address] Pierson, her plastic surgeon at [facility], the wound appeared clean during the I&D (my conversation with him on 11/06/2018) - H/o stage sacral decubitus ulcer extending to bilateral buttocks. She reportedly had total hip dislocation and exposed femoral head. CT pelvis showed e/o OM. Pt complete IV vancomycin (09/17/2018-10/29/2018) for sacral OM associated with E. faecalis - H/o sharp excisional debridement down to and including bone of the sacrum on 08/22/2018 and 09/19/2018 - H/o excision of R hip ulcer, girdlestone resection arthroplasty and flap reconstruction 09/23/2018. The surgical pathology showed osteomyelitis of R hip bone, soft tissue cellulitis, and bony margin of excision was free of the diseas e - according to Dr. Pierson who performed the wound debridement, Pt needs wound care until granulation tissue builds and infection is cleared. Then he would decide if Pt should get repeat closure or not - XR of R hip on 11/09/2009 showed the remaining R femoral shaft in transverse orientation and with lateral deviation - h/o removal of devitalized/necrotic tissue by Dr. Pierson on 10/07/2018 # renal/ - funguria, recurrent; Pt completed 3 day course of fluconazole (12/04-12/06/2018). Ramires was changed on 12/04/2018. - hematuria on 11/26/2018 - h/o moderate L hydronephrosis per renal US # heme, neuro - h/o acute on chronic anemia requiring PRBC - chronic metabolic encephalopathy - supranuclear palsy # endo, cardiac - diabetes mellitus - A fib with RVR - chronic diastolic HF (EF 40-45% with grade 1 DD per 2D Echo 10/24/2018) - h/o hypertension # allergy - penicillin allergy (throat swelling) but Pt tolerates cefepime, ceftazidime, meropenem Recommendations: - Continue Ceftazidime (12/12/2018 - ); s/p jose (restart 12/07-12/12/2018) and vancomycin (12/07-12/14/2018)-- plan to finish 7-10 days depending on procalcitonin resolution - Continue Flagyl IV (for possible intra abdominal infection in result of blood cxs +Bacteroides fragilis)--14 days from first neg bcx - Consider CT abdomen pelvis to determine if colonic perf if full aggressive care desired - Serial procalc periodically prior to abx cessation - ordered for AM 12/20/18 - Blood cx (NGTD) Yesterday's plan directed to [employer] Steve via [employer]. Consultation Date/Type/Reason Admit Date/Time Nov 26, 2018 at 20:42 Initial Consult Date 11/27/18 Requesting Provider: NADEEN CHO Date/Time of Note DATE: 12/20/18 TIME: 15:49 24 HR Interval Summary Free Text/Dictation d/w nursing. Exam/Review of Systems Exam Vitals Vital Signs Date Temp Pulse Resp B/P (MAP) Pulse Ox O2 O2 Flow FiO2 Time Delivery Rate 12/20/18 99.1 83 18 93 Room Air 14:46 12/20/18 21 14:24 12/20/18 5.0 10:03 Intake and Output 12/19/18 12/19/18 12/20/18 1515:00 23:00 07:00 IntakeIntake Total 200 ml 1030 ml 1030 ml OutputOutput Total 800 ml 400 ml BalanceBalance -600 ml 630 ml 1030 ml Constitutional: non-verbal Eyes: EOMI Respiratory: diminished breath sounds Gastrointestinal: soft Neurological: NAT INSTRUCTOR II-XII intact Results Result Diagram: 12/20/18 0524 12/20/18 0524 Results 24hrs Laboratory Tests Test 12/19/18 17:41 12/20/18 00:47 12/20/18 05:24 12/20/18 05:32 Bedside Glucose 192 200 166 White Blood Count 7.3 Red Blood Count 3.35 L Hemoglobin 8.6 L Hematocrit 28.5 L Mean Corpuscular 85.1 Volume Mean Corpuscular 25.7 L Hemoglobin Mean Corpuscular 30.2 L Hemoglobin Concent Red Cell 18.6 H Distribution Width Platelet Count 314 Mean Platelet Volume 10.6 H Immature 0.600 H Granulocytes % Neutrophils % 73.0 Lymphocytes % 16.3 Monocytes % 7.7 Eosinophils % 1.8 Basophils % 0.6 Nucleated Red Blood 0.0 Cells % Immature 0.040 H Granulocytes # Neutrophils # 5.3 Lymphocytes # 1.2 Monocytes # 0.6 Eosinophils # 0.1 Basophils # 0.0 Nucleated Red Blood 0.0 Cells # Sodium Level 136 Potassium Level 5.5 H Chloride Level 106 Carbon Dioxide Level 25 Anion Gap 5 Blood Urea Nitrogen 17 Creatinine 0.29 L Est Glomerular Filtrat Rate mL/min Glucose Level 156 Calcium Level 8.7 Procalcitonin 2.04 H Test 12/20/18 12:00 Bedside Glucose 180 Medications Medication Current Medications IV Flush (NS 10 ml) 10 ml Q8 IV Last administered on 12/20/18at 14:38; Admin Dose 10 ML; Start 11/26/18 at 22:00 Ascorbic Acid (Vitamin C) 500 mg DAILY GTB Last administered on 12/20/18 08:30; Admin Dose 500 MG; Start 11/27/18 at 09:00 Baclofen (Lioresal) 20 mg TID GTB Last administered on 12/20/18at 12:05; Admin Dose 20 MG; Start 11/26/18 at 21:00 Cholecalciferol (Vitamin D) 2,000 unit DAILY GTB Last administered on 12/20/18 08:30; Admin Dose 2,000 UNIT; Start 11/27/18 at 09:00 Cyanocobalamin (Vitamin B12) 1,000 mcg DAILY GTB Last administered on 12/20/18 08:29; Admin Dose 1,000 MCG; Start 11/27/18 at 09:00 Miscellaneous Information 1 ea NOTE XX ; Start 11/26/18 at 18:30 Glucose (Glutose) 15 gm Q15M PRN PO DECREASED GLUCOSE; Start 11/26/18 at 18:30 Glucose (Glutose) 22.5 gm Q15M PRN PO DECREASED GLUCOSE; Start 11/26/18 at 1 8:30 Dextrose (D50w Syringe) 25 ml Q15M PRN IV DECREASED GLUCOSE; Start 11/26/18 at 18:30 Dextrose (D50w Syringe) 50 ml Q15M PRN IV DECREASED GLUCOSE; Start 11/26/18 at 18:30 Glucagon (Glucagen) 1 mg Q15M PRN IM DECREASED GLUCOSE; Start 11/26/18 at 18:30 Glucose (Glutose) 15 gm Q15M PRN BUCCAL DECREASED GLUCOSE; Start 11/26/18 at 18:30 Diagnostic Test (Pha) (Accu-Chek) 1 ea 02 XX Last administered on 12/11/18at 01:49; Admin Dose 1 EA; Start 11/27/18 at 02:00 Lorazepam (Ativan) 1 mg Q2H PRN IV SEIZURES Last administered on 11/29/18at 14:39; Admin Dose 1 MG; Start 11/27/18 at 18:00 Aspirin (Aspirin) 81 mg DAILY GTB Last administered on 12/20/18 08:29; Admin Dose 81 MG; Start 11/29/18 at 10:00 Levetiracetam 100 ml @ 400 mls/hr Q12 IVPB Last administered on 12/20/18 08:31; Admin Dose 400 MLS/HR; Start 11/29/18 at 21:00 Acetaminophen (Tylenol Liquid) 650 mg Q4H PRN GTB MILD PAIN(1-3)OR ELEVATED TEMP Last administered on 12/12/18 16:18; Admin Dose 650 MG; Start 12/03/18 at 02:00 Insulin Aspart (Novolog Insulin Pen) NOVOLOG *MILD* ALGORI... Q6 SC Last administered on 12/20/18 12:04; Admin Dose 1 UNIT; Start 12/09/18 at 18:00 Alteplase, Recombinant (Cathflo (Activase)) 2 mg MAY REPEAT X1 PRN CATHETER IF CATHETER REMAINS OCCULUDED Last administered on 12/14/18 21:48; Admin Dose 2 MG; Start 12/09/18 at 23:30 Albuterol/ Ipratropium (Duoneb) 3 ml Q6HWA RESP THERAPY HHN Last administered on 12/20/18 14:24; Admin Dose 3 ML; Start 12/12/18 at 14:00 Albuterol/ Ipratropium (Duoneb) 3 ml Q4H RESP THERAPY PRN HHN SHORTNESS OF BREATH Last administered on 12/15/18 19:48; Admin Dose 3 ML; Start 12/12/18 at 12:30 Ceftazidime 50 ml @ 100 mls/hr Q8 IVPB Last administered on 12/20/18 05:34; Admin Dose 100 MLS/HR; Start 12/12/18 at 18:00 Metronidazole 100 ml @ 100 mls/hr Q8 IVPB Last administered on 12/20/18 14:37; Admin Dose 100 MLS/HR; Start 12/12/18 at 17:00 Collagenase (Santyl) 1 applic DAILY TOP Last administered on 12/20/18 08:30; Admin Dose 1 APPLIC; Start 12/13/18 at 10:30 Sodium Hypochlorite (Dakins Diluted ()) 1 applic BID IRR Last administered on 12/20/18at 08:31; Admin Dose 1 APPLIC; Start 12/17/18 at 22:00 KASH MONDRAGON MD December 20, 2018 15:51
[2018-12-20 17:15] VITALS: BP 117/58
[2018-12-20 19:50] VITALS: BP 104/55; PULSE 121; RESP 16
[2018-12-21] MEDS: INSULIN ASPART [NOVOLOG] 3 ML PEN SC SCH ×4 (00:19→17:41)
[2018-12-21] MEDS: ACCU-CHEK XX SCH (02:00)
[2018-12-21 02:02] VITALS: BP 91/50; PULSE 84; RESP 16
[2018-12-21] MEDS: metroNIDAZOLE 500 MG/NS (PMX) 100 ML IVPB SCH ×3 (05:31→21:44)
[2018-12-21] MEDS: CEFTAZIDIME 1GM/50 ML (PMX) 50 ML IVPB SCH ×3 (06:07→21:46)
[2018-12-21] MEDS: ALBUTEROL/IPRATROPIUM (NEB) 3 ML AMP HHN SCH ×3 (07:47→19:51)
[2018-12-21 08:09] VITALS: BP 129/58; PULSE 94; RESP 20
[2018-12-21] MEDS: ASCORBIC ACID 500 MG TAB GTB SCH (09:02)
[2018-12-21] MEDS: COLLAGENASE 5 GM (UD JAR) TOP SCH (09:02)
[2018-12-21] MEDS: LEVETIRACETAM 1000 MG (PMX) 100 ML IVPB SCH ×2 (09:02→20:55)
[2018-12-21] MEDS: ASPIRIN 81 MG TAB GTB SCH (09:02)
[2018-12-21] MEDS: BACLOFEN 10 MG TAB GTB SCH ×3 (09:03→20:56)
[2018-12-21] MEDS: CHOLECALCIFEROL 2,000 UNIT CAP GTB SCH (09:03)
[2018-12-21] MEDS: CYANOCOBALAMIN 500 MCG TAB GTB SCH (09:03)
[2018-12-21] MEDS: DAKINS 0.0125%(1/40) 473 ML SOLUTION IRR SCH ×2 (09:04→20:56)
[2018-12-21] MEDS: BALSAM PERU/CASTOR OIL 60 GM TUBE TOP SCH (09:04)
--- NOTE | 2018-12-21 12:23 | CONS ---
Assessment/Plan Assessment/Plan Hospital Course (Demo Recall) # sepsis, endovascular infection, respiratory - recurrent sepsis due to bacteremia and pneumonia +/- wound infection. Procalcitonin was 1.96 on 12/07/2018 - leukocytosis and fever resolved - bacteremia d/t bacteroides fragilis 12/07/2018 possibly d/t intra-abdominal infection - VAP d/t pseudomonas 12/08/2018 and 12/13/2018 - s/p septic shock due to probable UTI - s/p coag negative Staph in blood cultures on 11/26/2018, probable contaminant - colonization of the airway by pseudomonas and corynebacteria on 11/26/2018; MDR pseudomonas in trach aspirate cx from 12/08/2018 likely a colonizer - h/o sepsis due to bacteremia and pneumonia - h/o bacteremia: blood cultures grew enterococcus faecalis on 09/17/2018 secondary to R hip wound infection as its wound culture on 09/16/2018 grew E. faecalis as well - h/o recurrent acute on chronic hypoxemic respiratory failure secondary to secretion retention, mucous plugging, major left lung atelectasis, severe shunting - h/o probable aspiration pneumonia. - h/o pneumonia due to pseudomonas on 09/30/2018. s/p Levaquin (10/03/18- 10/07/2018), Meropenem (restart 09/30/2018-10/03/18, 10/12/18 - 10/19/2018) and empiric Amikacin (09/30/18-10/03/18) - H/o intubation on 09/30/2018 - H/o tracheostomy on 10/04/2018 - h/o pseudomonas in urine culture on 09/17/2018 with mild pyuria; treated with Cefepime (09/20/2018-09/25/2018) # infection of wound, OM of R hip, pressure ulcer - colonization of the wound of R hip by pseudomonas (wound culture on 10/31/2018), acinetobacter (wound culture on 11/27/2018) - h/o repeat debridement at [facility] on 11/03/[address]. [address] Pierson, her plastic surgeon at [facility], the wound appeared clean during the I&D (my conversation with him on 11/06/2018) - H/o stage sacral decubitus ulcer extending to bilateral buttocks. She reportedly had total hip dislocation and exposed femoral head. CT pelvis showed e/o OM. Pt complete IV vancomycin (09/17/2018-10/29/2018) for sacral OM associated with E. faecalis - H/o sharp excisional debridement down to and including bone of the sacrum on 08/22/2018 and 09/19/2018 - H/o excision of R hip ulcer, girdlestone resection arthroplasty and flap reconstruction 09/23/2018. The surgical pathology showed osteomyelitis of R hip bone, soft tissue cellulitis, and bony margin of excision was free of the diseas e - according to Dr. Pierson who performed the wound debridement, Pt needs wound care until granulation tissue builds and infection is cleared. Then he would decide if Pt should get repeat closure or not - XR of R hip on 11/09/2009 showed the remaining R femoral shaft in transverse orientation and with lateral deviation - h/o removal of devitalized/necrotic tissue by Dr. Pierson on 10/07/2018 # renal/ - funguria, recurrent; Pt completed 3 day course of fluconazole (12/04-12/06/2018). Ramires was changed on 12/04/2018. - hematuria on 11/26/2018 - h/o moderate L hydronephrosis per renal US # heme, neuro - h/o acute on chronic anemia requiring PRBC - chronic metabolic encephalopathy - supranuclear palsy # endo, cardiac - diabetes mellitus - A fib with RVR - chronic diastolic HF (EF 40-45% with grade 1 DD per 2D Echo 10/24/2018) - h/o hypertension # allergy - penicillin allergy (throat swelling) but Pt tolerates cefepime, ceftazidime, meropenem Recommendations: - Continue Ceftazidime (12/12/2018 - ); s/p jose (restart 12/07-12/12/2018) and vancomycin (12/07-12/14/2018) - plan to finish 10 days depending on procalcitonin resolution - end date 12/22/18 - Continue Flagyl IV (for possible intra abdominal infection in result of blood cxs +Bacteroides fragilis)--14 days from first neg bcx - end date 12/23/18 - Consider CT abdomen pelvis to determine if colonic perf if full aggressive care desired - Serial procalc periodically prior to abx cessation Plan was d/w patient's RN at the bedside and with Dr. Breaux via telemediq messaging. Thank you Consultation Date/Type/Reason Admit Date/Time Nov 26, 2018 at 20:42 Initial Consult Date 11/27/18 Type of Consult ID Requesting Provider: NADEEN CHO Date/Time of Note DATE: 12/21/18 TIME: 12:20 24 HR Interval Summary Free Text/Dictation Per d/w patient's RN at the bedside, the patient's family wants to take the patient home. The patient has also been cleared for transfer to [place]. She has remained afebrile and WBC 7.7. Patient is unable to contribute to ROS d/t chronic encephalopathy. Exam/Review of Systems Exam Vitals Vital Signs Date Temp Pulse Resp B/P (MAP) Pulse Ox O2 O2 Flow FiO2 Time Delivery Rate 12/21/18 98.9 94 20 129/58 94 Trach 08:09 (81) Collar 12/21/18 5.0 08:00 12/21/18 28 07:47 Allergies Coded Allergies Penicillins (Verified Allergy, Unknown, 07/06/13) morphine (Verified Adverse Reaction, Mild, "LOOPY", 10/08/18) Uncoded Allergies PLASTIC TAPE ( Allergy, Unknown, 04/01/07) Intake and Output 12/20/18 12/20/18 12/21/18 1515:00 23:00 07:00 IntakeIntake Total 200 ml 1230 ml 150 ml OutputOutput Total 1300 ml BalanceBalance 200 ml -70 ml 150 ml Exam Constitutional: non-verbal, frail, other (chronically debilitated, RN is at bedside administering GT medications) Psych: confusion Head: normocephalic, atraumatic Eyes: nl conjunctiva, nl lids, nl sclera ENMT: nl external ears & nose, nl nasal mucosa & septum, mucosa pink and moist (no thrush noted ) Neck: supple, other (slightly extended ) Respiratory: normal air movement, diminished breath sounds, other (trach site midline, c/d/i, on a Tpiece) Cardiovascular: regular rate and rhythm, nl pulses Gastrointestinal: soft, non-tender, bowel sounds (normoactive), other (PEG site is c/d/i - being given medications currently) Genitourinary - Female: other (f/c draining yellow urine ) Musculoskeletal: other (contractures, R hip wound; ivan foot drop) Extremities: normal pulses; No edema Neurological: other (no eye tracking, no attempts to follow commands or communicate) Skin: nl turgor, other (reviewed nsg notes/pics); No rash or lesions Results Result Diagram: 12/21/18 0447 12/21/18446 Results 24hrs Laboratory Tests Test 12/20/18 17:32 12/21/18 00:17 12/21/18 02:56 12/21/18 04:47 Bedside Glucose 155 210 187 White Blood Count 7.7 Red Blood Count 2.84 L Hemoglobin 7.3 L Hematocrit 23.9 L Mean Corpuscular 84.2 Volume Mean Corpuscular 25.7 L Hemoglobin Mean Corpuscular 30.5 L Hemoglobin Concent Red Cell 18.4 H Distribution Width Platelet Count 322 Mean Platelet Volume 10.7 H Immature 0.400 Granulocytes % Neutrophils % 72.4 Lymphocytes % 17.0 Monocytes % 7.8 Eosinophils % 1.7 Basophils % 0.7 Nucleated Red Blood 0.0 Cells % Immature 0.030 Granulocytes # Neutrophils # 5.6 Lymphocytes # 1.3 Monocytes # 0.6 Eosinophils # 0.1 Basophils # 0.1 Nucleated Red Blood 0.0 Cells # Sodium Level 140 Potassium Level 4.1 Chloride Level 107 Carbon Dioxide Level 29 Anion Gap 4 L Blood Urea Nitrogen 20 Creatinine 0.34 L Est Glomerular Filtrat Rate mL/min Glucose Level 153 Calcium Level 8.2 L Test 12/21/18 06:09 Bedside Glucose 178 Medications Medication Current Medications IV Flush (NS 10 ml) 10 ml Q8 IV Last administered on 12/21/18at 05:31; Admin Dose 10 ML; Start 11/26/18 at 22:00 Ascorbic Acid (Vitamin C) 500 mg DAILY GTB Last administered on 12/21/18at 09:02; Admin Dose 500 MG; Start 11/27/18 at 09:00 Baclofen (Lioresal) 20 mg TID GTB Last administered on 12/21/18 09:03; Admin Dose 20 MG; Start 11/26/18 at 21:00 Cholecalciferol (Vitamin D) 2,000 unit DAILY GTB Last administered on 12/21/18at 09:03; Admin Dose 2,000 UNIT; Start 11/27/18 at 09:00 Cyanocobalamin (Vitamin B12) 1,000 mcg DAILY GTB Last administered on 12/21/18 09:03; Admin Dose 1,000 MCG; Start 11/27/18 at 09:00 Miscellaneous Information 1 ea NOTE XX ; Start 11/26/18 at 18:30 Glucose (Glutose) 15 gm Q15M PRN PO DECREASED GLUCOSE; Start 11/26/18 at 18:30 Glucose (Glutose) 22.5 gm Q15M PRN PO DECREASED GLUCOSE; Start 11/26/18 at 18:30 Dextrose (D50w Syringe) 25 ml Q15M PRN IV DECREASED GLUCOSE; Start 11/26/18 at 18:30 Dextrose (D50w Syringe) 50 ml Q15M PRN IV DECREASED GLUCOSE; Start 11/26/18 at 18:30 Glucagon (Glucagen) 1 mg Q15M PRN IM DECREASED GLUCOSE; Start 11/26/18 at 18:30 Glucose (Glutose) 15 gm Q15M PRN BUCCAL DECREASED GLUCOSE; Start 11/26/18 at 18:30 Diagnostic Test (Pha) (Accu-Chek) 1 ea 02 XX Last administered on 12/11/18 01:49; Admin Dose 1 EA; Start 11/27/18 at 02:00 Lorazepam (Ativan) 1 mg Q2H PRN IV SEIZURES Last administered on 11/29/18 14:39; Admin Dose 1 MG; Start 11/27/18 at 18:00 Aspirin (Aspirin) 81 mg DAILY GTB Last administered on 12/21/18 09:02; Admin Dose 81 MG; Start 11/29/18 at 10:00 Levetiracetam 100 ml @ 400 mls/hr Q12 IVPB Last administered on 12/21/18 09:02; Admin Dose 400 MLS/HR; Start 11/29/18 at 21:00 Acetaminophen (Tylenol Liquid) 650 mg Q4H PRN GTB MILD PAIN(1-3)OR ELEVATED TEMP Last administered on 12/12/18 16:18; Admin Dose 650 MG; Start 12/03/18 at 02:00 Insulin Aspart (Novolog Insulin Pen) NOVOLOG *MILD* ALGORI... Q6 SC Last administered on 12/21/18 06:11; Admin Dose 1 UNIT; Start 12/09/18 at 18:00 Alteplase, Recombinant (Cathflo (Activase)) 2 mg MAY REPEAT X1 PRN CATHETER IF CATHETER REMAINS OCCULUDED Last administered on 12/14/18 21:48; Admin Dose 2 MG; Start 12/09/18 at 23:30 Albuterol/ Ipratropium (Duoneb) 3 ml Q6HWA RESP THERAPY HHN Last administered on 12/21/18 07:47; Admin Dose 3 ML; Start 12/12/18 at 14:00 Albuterol/ Ipratropium (Duoneb) 3 ml Q4H RESP THERAPY PRN HHN SHORTNESS OF BREATH Last administered on 12/15/18 19:48; Admin Dose 3 ML; Start 12/12/18 at 12:30 Ceftazidime 50 ml @ 100 mls/hr Q8 IVPB Last administered on 12/21/18 06:07; Admin Dose 100 MLS/HR; Start 12/12/18 at 18:00 Metronidazole 100 ml @ 100 mls/hr Q8 IVPB Last administered on 12/21/18 05:31; Admin Dose 100 MLS/HR; Start 12/12/18 at 17:00 Collagenase (Santyl) 1 applic DAILY TOP Last administered on 12/21/18 09:02; Admin Dose 1 APPLIC; Start 12/13/18 at 10:30 Sodium Hypochlorite (Dakins Diluted (1/40)) 1 applic BID IRR Last administered on 12/21/18 09:04; Admin Dose 1 APPLIC; Start 12/17/18 at 22:00 ZENON RUDOLPH NP December 21, 2018 12:22
--- NOTE | 2018-12-21 12:47 | PN ---
Date/Time of Note Date/Time of Note DATE: 12/21/18 TIME: 12:46 Assessment/Plan VTE Prophylaxis Risk score (from Ns)>0 risk: 4 [place] [facility] [place]CD contraindicated: other Pharmacological prophylaxis: LMWH Lines/Catheters IV Catheter Type (from [facility]): PICC Line Central line still needed: Yes Urinary Cath still in place: Yes Reason Cath still needed: skin wounds contaminated by urine Assessment/Plan Hospital Course -Hyperkalemia - Kayexalate 30 gm GT x1 - BMP am - SEPSIS -per ID - Hypernatremia - monitor BMP - If no improvement; will get nephrology consult -Atrial fibrillation/ flutter with rapid ventricular response. Patient is currently in sinus rhythm. - Continue amiodarone. Dr. Monson is following in cardiology consultation. -Progressive supranuclear palsy -Respiratory failure with tracheostomy patient is currently on cool aerosol mist. -Chronic encephalopathy -Decubitus ulcer of the right hip and sacrum, status post Girdlestone procedure of the right hip with flap in September 2018, followed by removal of necrotic tissue by Dr. Triplett at [facility]. - sp evaluation by ortho- dr matos -Right hip wound infection with OM of R hip, completed treatment with antibiot ics. - surgery follows -Wound dehiscence, s/p repeat debridement at [facility] on 11/03/2018. -Diabetes - GLYCEMIC control -Chronic diastolic CHF -Dysphagia with GT - aspiration precautions -Anemia of chronic disease -Failure to thrive, Dr. Prieto is following in palliative care consultation. -DNR/DNI status Result Diagram: 12/21/18 0447 12/21/18446 Results 24hrs Laboratory Tests Test 12/20/18 17:32 12/21/18 00:17 12/21/18 02:56 12/21/18 04:47 Bedside Glucose 155 210 187 White Blood Count 7.7 Red Blood Count 2.84 L Hemoglobin 7.3 L Hematocrit 23.9 L Mean Corpuscular 84.2 Volume Mean Corpuscular 25.7 L Hemoglobin Mean Corpuscular 30.5 L Hemoglobin Concent Red Cell 18.4 H Distribution Width Platelet Count 322 Mean Platelet Volume 10.7 H Immature 0.400 Granulocytes % Neutrophils % 72.4 Lymphocytes % 17.0 Monocytes % 7.8 Eosinophils % 1.7 Basophils % 0.7 Nucleated Red Blood 0.0 Cells % Immature 0.030 Granulocytes # Neutrophils # 5.6 Lymphocytes # 1.3 Monocytes # 0.6 Eosinophils # 0.1 Basophils # 0.1 Nucleated Red Blood 0.0 Cells # Sodium Level 140 Potassium Level 4.1 Chloride Level 107 Carbon Dioxide Level 29 Anion Gap 4 L Blood Urea Nitrogen 20 Creatinine 0.34 L Est Glomerular Filtrat Rate mL/min Glucose Level 153 Calcium Level 8.2 L Test 12/21/18 06:09 12/21/18 12:25 Bedside Glucose 178 178 Subjective 24 Hr Interval Summary Free Text/Dictation Patient resting, on trach, not responsive to voice or touch Exam/Review of Systems Exam Vitals Vital Signs Date Temp Pulse Resp B/P (MAP) Pulse Ox O2 O2 Flow FiO2 Time Delivery Rate 12/21/18 98.9 94 20 129/58 94 Trach 08:09 (81) Collar 12/21/18 5.0 08:00 12/21/18 28 07:47 Intake and Output 12/20/18 12/20/18 12/21/18 1515:00 23:00 07:00 IntakeIntake Total 200 ml 1230 ml 150 ml OutputOutput Total 1300 ml BalanceBalance 200 ml -70 ml 150 ml Constitutional: well developed Head: normocephalic, atraumatic Neck: supple Respiratory: diminished breath sounds Cardiovascular: regular rate and rhythm Gastrointestinal: soft, non-tender Extremities: normal pulses Results Results 24hrs Laboratory Tests Test 12/20/18 17:32 12/21/18 00:17 12/21/18 02:56 12/21/18 04:47 Bedside Glucose 155 210 187 White Blood Count 7.7 Red Blood Count 2.84 L Hemoglobin 7.3 L Hematocrit 23.9 L Mean Corpuscular 84.2 Volume Mean Corpuscular 25.7 L Hemoglobin Mean Corpuscular 30.5 L Hemoglobin Concent Red Cell 18.4 H Distribution Width Platelet Count 322 Mean Platelet Volume 10.7 H Immature 0.400 Granulocytes % Neutrophils % 72.4 Lymphocytes % 17.0 Monocytes % 7.8 Eosinophils % 1.7 Basophils % 0.7 Nucleated Red Blood 0.0 Cells % Immature 0.030 Granulocytes # Neutrophils # 5.6 Lymphocytes # 1.3 Monocytes # 0.6 Eosinophils # 0.1 Basophils # 0.1 Nucleated Red Blood 0.0 Cells # Sodium Level 140 Potassium Level 4.1 Chloride Level 107 Carbon Dioxide Level 29 Anion Gap 4 L Blood Urea Nitrogen 20 Creatinine 0.34 L Est Glomerular Filtrat Rate mL/min Glucose Level 153 Calcium Level 8.2 L Test 12/21/18 06:09 12/21/18 12:25 Bedside Glucose 178 178 Medications Medication Current Medications IV Flush (NS 10 ml) 10 ml Q8 IV Last administered on 12/21/18 05:31; Admin Dose 10 ML; Start 11/26/18 at 22:00 Ascorbic Acid (Vitamin C) 500 mg DAILY GTB Last administered on 12/21/18 09:02; Admin Dose 500 MG; Start 11/27/18 at 09:00 Baclofen (Lioresal) 20 mg TID GTB Last administered on 12/21/18 12:30; Admin Dose 20 MG; Start 11/26/18 at 21:00 Cholecalciferol (Vitamin D) 2,000 unit DAILY GTB Last administered on 12/21/18 09:03; Admin Dose 2,000 UNIT; Start 11/27/18 at 09:00 Cyanocobalamin (Vitamin B12) 1,000 mcg DAILY GTB Last administered on 12/21/18 09:03; Admin Dose 1,000 MCG; Start 11/27/18 at 09:00 Miscellaneous Information 1 ea NOTE XX ; Start 11/26/18 at 18:30 Glucose (Glutose) 15 gm Q15M PRN PO DECREASED GLUCOSE; Start 11/26/18 at 18:30 Glucose (Glutose) 22.5 gm Q15M PRN PO DECREASED GLUCOSE; Start 11/26/18 at 18:30 Dextrose (D50w Syringe) 25 ml Q15M PRN IV DECREASED GLUCOSE; Start 11/26/18 at 18:30 Dextrose (D50w Syringe) 50 ml Q15M PRN IV DECREASED GLUCOSE; Start 11/26/18 at 18:30 Glucagon (Glucagen) 1 mg Q15M PRN IM DECREASED GLUCOSE; Start 11/26/18 at 18:30 Glucose (Glutose) 15 gm Q15M PRN BUCCAL DECREASED GLUCOSE; Start 11/26/18 at 18:30 Diagnostic Test (Pha) (Accu-Chek) 1 ea 02 XX Last administered on 12/11/18at 01:49; Admin Dose 1 EA; Start 11/27/18 at 02:00 Lorazepam (Ativan) 1 mg Q2H PRN IV SEIZURES Last administered on 11/29/18 14:39; Admin Dose 1 MG; Start 11/27/18 at 18:00 Aspirin (Aspirin) 81 mg DAILY GTB Last administered on 12/21/18 09:02; Admin Dose 81 MG; Start 11/29/18 at 10:00 Levetiracetam 100 ml @ 400 mls/hr Q12 IVPB Last administered on 12/21/18 09:02; Admin Dose 400 MLS/HR; Start 11/29/18 at 21:00 Acetaminophen (Tylenol Liquid) 650 mg Q4H PRN GTB MILD PAIN(1-3)OR ELEVATED TEMP Last administered on 12/12/18 16:18; Admin Dose 650 MG; Start 12/03/18 at 02:00 Insulin Aspart (Novolog Insulin Pen) NOVOLOG *MILD* ALGORI... Q6 SC Last administered on 12/21/18 12:32; Admin Dose 1 UNIT; Start 12/09/18 at 18:00 Alteplase, Recombinant (Cathflo (Activase)) 2 mg MAY REPEAT X1 PRN CATHETER IF CATHETER REMAINS OCCULUDED Last administered on 12/14/18 21:48; Admin Dose 2 MG; Start 12/09/18 at 23:30 Albuterol/ Ipratropium (Duoneb) 3 ml Q6HWA RESP THERAPY HHN Last administered on 12/21/18 07:47; Admin Dose 3 ML; Start 12/12/18 at 14:00 Albuterol/ Ipratropium (Duoneb) 3 ml Q4H RESP THERAPY PRN HHN SHORTNESS OF BREATH Last administered on 12/15/18 19:48; Admin Dose 3 ML; Start 12/12/18 at 12:30 Ceftazidime 50 ml @ 100 mls/hr Q8 IVPB Last administered on 12/21/18 06:07; Admin Dose 100 MLS/HR; Start 12/12/18 at 18:00 Metronidazole 100 ml @ 100 mls/hr Q8 IVPB Last administered on 12/21/18 05:31; Admin Dose 100 MLS/HR; Start 12/12/18 at 17:00 Collagenase (Santyl) 1 applic DAILY TOP Last administered on 12/21/18at 09:02; Admin Dose 1 APPLIC; Start 12/13/18 at 10:30 Sodium Hypochlorite (Dakins Diluted ()) 1 applic BID IRR Last administered on 12/21/18at 09:04; Admin Dose 1 APPLIC; Start 12/17/18 at 22:00 KALEY NO December 21, 2018 12:46
--- NOTE | 2018-12-21 13:35 | CONS ---
Consult Date/Type/Reason Admit Date/Time Nov 26, 2018 at 20:42 Initial Consult Date 11/27/18 Type of Consultation: Pulm Requesting Provider: NADEEN CHO Date/Time of Note DATE: 12/21/18 TIME: 13:34 Subjective NO acute events - pt stable - PEG in place, good feeding ROS: No fever, no chills, no nausea, no vomiting, no diarrhea/constipation - per nurse Objective Vitals Vital Signs Date Temp Pulse Resp B/P (MAP) Pulse Ox O2 O2 Flow FiO2 Time Delivery Rate 12/21/18 92 18 92 Aerosol 5.0 28 13:23 T Tube 12/21/18 98.9 129/58 08:09 (81) Intake and Output 12/20/18 12/20/18 12/21/18 1515:00 23:00 07:00 IntakeIntake Total 200 ml 1230 ml 150 ml OutputOutput Total 1300 ml BalanceBalance 200 ml -70 ml 150 ml Exam General: WN/WD/NAD, AOx 0 HEENT: Unicetric/atraumatic/EOMI (does not follow commands) NECK: JVD elevated, no thyromegaly Lymph: no lymphadenopathy HEART: regular with no S3, II/ systolic murmur at apex LUNGS: Coarse sounds ABD: soft, NT, ND, +BS - PEG : Intact Neuro: contracted SKIN: chronic changes EXT: trace edema Results/Medications Result Diagram: 12/21/1844612/21/18446 Results 24 hrs Laboratory Tests Test 12/20/18 17:32 12/21/18 00:17 12/21/18 02:56 12/21/18 04:47 Bedside Glucose 155 210 187 White Blood Count 7.7 Red Blood Count 2.84 L Hemoglobin 7.3 L Hematocrit 23.9 L Mean Corpuscular 84.2 Volume Mean Corpuscular 25.7 L Hemoglobin Mean Corpuscular 30.5 L Hemoglobin Concent Red Cell 18.4 H Distribution Width Platelet Count 322 Mean Platelet Volume 10.7 H Immature 0.400 Granulocytes % Neutrophils % 72.4 Lymphocytes % 17.0 Monocytes % 7.8 Eosinophils % 1.7 Basophils % 0.7 Nucleated Red Blood 0.0 Cells % Immature 0.030 Granulocytes # Neutrophils # 5.6 Lymphocytes # 1.3 Monocytes # 0.6 Eosinophils # 0.1 Basophils # 0.1 Nucleated Red Blood 0.0 Cells # Sodium Level 140 Potassium Level 4.1 Chloride Level 107 Carbon Dioxide Level 29 Anion Gap 4 L Blood Urea Nitrogen 20 Creatinine 0.34 L Est Glomerular Filtrat Rate mL/min Glucose Level 153 Calcium Level 8.2 L Test 12/21/18 06:09 12/21/18 12:25 Bedside Glucose 178 178 Home Meds Reported Medications Ondansetron Hcl* (Ondansetron Hcl*) 4 Mg Tablet, 4 MG PO Q6H PRN for n/v, TAB 11/26/18 Ascorbic Acid* (Vitamin C*) 500 Mg Capsule.sa, 500 MG GTB DAILY, CAP 11/26/18 Acetaminophen* (Acetaminophen*) 325 Mg Tablet, 650 MG GTB Q4H PRN for PAIN AND OR ELEVATED TEMP, #30 TAB 11/26/18 Sertraline Hcl* (Sertraline Hcl*) 50 Mg Tablet, 50 MG GTB DAILY, #30 TAB 11/26/18 Protein Supplement (Promod) 946 Ml Liquid, 30 ML GTB for supplement 11/26/18 Lansoprazole* (Lansoprazole*) 30 Mg Capsule.dr, 30 MG GTB BID, CAP 11/26/18 Hydrocodone/Acetaminophen (Cadiz 5-325 Tablet) 1 Each Tablet, 1 EACH GTB Q4H PRN for PAIN, TAB 11/26/18 Polyethylene Glycol* (Miralax*) 17 Gm Powd.pack, 17 GM GTB BID, #60 PACKET 11/26/18 Metoprolol Tartrate* (Lopressor*) 25 Mg Tab, 25 MG GTB BID, #60 TAB 11/26/18 Lisinopril* (Lisinopril*) 5 Mg Tablet, 5 MG GTB DAILY, #30 TAB 11/26/18 Insulin Aspart* (Novolog Insulin Pen*) 100 Unit/Ml Soln, 0 SC .SLIDING SCALE AC, EA INJECT PER SLIDING SCALE; IF 70-150=0unit; 151-200= 2units; 201-250=4units; 251-300=6units; 301-350=8units; 351-400=10units and Call MD, Subcutaneously before meals and at bedtime fo DM. 11/26/18 Insulin Glargine* (Lantus*) 100 Unit/Ml Soln, 5 UNIT SC QHS, #1 VIAL [id number] SQ AT BEDTIME FOR TYPE 2DIABETES MELLITUS WITHOUT COMPLICATIONS 11/26/18 Levetiracetam* (Keppra*) 500 Mg/5 Ml Solution, 100 MG GTB BID for SEIZURE for 30 Days, BOTTLE 11/26/18 Ipratropium-Albuterol (Ipratropium-Albuterol) 0.5-3 Mg/3 Ml Ampul.neb, 3 ML INHALATION Q6, #30 VIAL 11/26/18 Ferrous Sulfate* (Ferrous Sulfate*) 220 Mg/5 Ml Solution, 330 MG PO BID, ML 11/26/18 Epoetin Haroon (Epogen) 10,000 Units/Ml Soln, 20634 UNITS SC QWED for ANEMIA, VIAL 11/26/18 Cyanocobalamin* (Vitamin B-12*) 1,000 Mcg Tablet.sa, 1000 MCG GTB DAILY, TAB 11/26/18 Clonazepam* (Clonazepam*) 0.5 Mg Tablet, 0.5 MG GTB BID, TAB 11/26/18 Cholecalciferol (Vitamin D3) (VITAMIN D-3) 2,000 Unit Capsule, 2000 UNIT GTB DAILY, CAP 11/26/18 Baclofen* (Baclofen*) 10 Mg Tablet, 20 MG GTB TID for MUSCLE SPASM, TAB 11/26/18 Aspirin* (Aspirin* EC) 81 Mg Tablet.dr, 81 MG GTB DAILY, TAB 11/26/18 Amiodarone Hcl* (Amiodarone Hcl*) 200 Mg Tablet, 200 MG GTB BID for ARRHYTMIA, #60 TAB 11/26/18 Zolpidem Tartrate* (Zolpidem Tartrate*) 5 Mg Tablet, 5 MG GTB QHS PRN for INSOMNIA, #30 TAB 11/26/18 Acidophilus-Bulgaricus* (BD Lactinex*) 1 Pkt Packet, 1 PKT GTB BID, PACKET 11/26/18 Zinc Sulfate* (Zinc Sulfate*) 220 Mg Tablet, 220 MG GTB DAILY for 30 Days, #30 TAKE 1 CAPSULE VIA G-TUBE EVERY DAY 11/26/18 Estrogens Conjugated* (Premarin*) 0.45 Mg Tablet, 1.5 MG PO DAILY 02/18/13 Medications Current Medications IV Flush (NS 10 ml) 10 ml Q8 IV Last administered on 12/21/18 05:31; Admin Dose 10 ML; Start 11/26/18 at 22:00 Ascorbic Acid (Vitamin C) 500 mg DAILY GTB Last administered on 12/21/18 09:02; Admin Dose 500 MG; Start 11/27/18 at 09:00 Baclofen (Lioresal) 20 mg TID GTB Last administered on 12/21/18 12:30; Admin Dose 20 MG; Start 11/26/18 at 21:00 Cholecalciferol (Vitamin D) 2,000 unit DAILY GTB Last administered on 12/21/18 09:03; Admin Dose 2,000 UNIT; Start 11/27/18 at 09:00 Cyanocobalamin (Vitamin B12) 1,000 mcg DAILY GTB Last administered on 12/21/18 09:03; Admin Dose 1,000 MCG; Start 11/27/18 at 09:00 Miscellaneous Information 1 ea NOTE XX ; Start 11/26/18 at 18:30 Glucose (Glutose) 15 gm Q15M PRN PO DECREASED GLUCOSE; Start 11/26/18 at 18:30 Glucose (Glutose) 22.5 gm Q15M PRN PO DECREASED GLUCOSE; Start 11/26/18 at 18:30 Dextrose (D50w Syringe) 25 ml Q15M PRN IV DECREASED GLUCOSE; Start 11/26/18 at 18:30 Dextrose (D50w Syringe) 50 ml Q15M PRN IV DECREASED GLUCOSE; Start 11/26/18 at 18:30 Glucagon (Glucagen) 1 mg Q15M PRN IM DECREASED GLUCOSE; Start 11/26/18 at 18:30 Glucose (Glutose) 15 gm Q15M PRN BUCCAL DECREASED GLUCOSE; Start 11/26/18 at 18:30 Diagnostic Test (Pha) (Accu-Chek) 1 ea 02 XX Last administered on 12/11/18at 01:49; Admin Dose 1 EA; Start 11/27/18 at 02:00 Lorazepam (Ativan) 1 mg Q2H PRN IV SEIZURES Last administered on 11/29/18at 14:39; Admin Dose 1 MG; Start 11/27/18 at 18:00 Aspirin (Aspirin) 81 mg DAILY GTB Last administered on 12/21/18 09:02; Admin Dose 81 MG; Start 11/29/18 at 10:00 Levetiracetam 100 ml @ 400 mls/hr Q12 IVPB Last administered on 12/21/18 09:02; Admin Dose 400 MLS/HR; Start 11/29/18 at 21:00 Acetaminophen (Tylenol Liquid) 650 mg Q4H PRN GTB MILD PAIN(1-3)OR ELEVATED TEMP Last administered on 12/12/18 16:18; Admin Dose 650 MG; Start 12/03/18 at 02:00 Insulin Aspart (Novolog Insulin Pen) NOVOLOG *MILD* ALGORI... Q6 SC Last administered on 12/21/18 12:32; Admin Dose 1 UNIT; Start 12/09/18 at 18:00 Alteplase, Recombinant (Cathflo (Activase)) 2 mg MAY REPEAT X1 PRN CATHETER IF CATHETER REMAINS OCCULUDED Last administered on 12/14/18 21:48; Admin Dose 2 MG; Start 12/09/18 at 23:30 Albuterol/ Ipratropium (Duoneb) 3 ml Q6HWA RESP THERAPY HHN Last administered on 12/21/18 13:21; Admin Dose 3 ML; Start 12/12/18 at 14:00 Albuterol/ Ipratropium (Duoneb) 3 ml Q4H RESP THERAPY PRN HHN SHORTNESS OF BREATH Last administered on 12/15/18 19:48; Admin Dose 3 ML; Start 12/12/18 at 12:30 Ceftazidime 50 ml @ 100 mls/hr Q8 IVPB Last administered on 12/21/18 06:07; Admin Dose 100 MLS/HR; Start 12/12/18 at 18:00 Metronidazole 100 ml @ 100 mls/hr Q8 IVPB Last administered on 12/21/18 05:31; Admin Dose 100 MLS/HR; Start 12/12/18 at 17:00 Collagenase (Santyl) 1 applic DAILY TOP Last administered on 12/21/18 09:02; Admin Dose 1 APPLIC; Start 12/13/18 at 10:30 Sodium Hypochlorite (Dakins Diluted (1/40)) 1 applic BID IRR Last administered on 12/21/18 09:04; Admin Dose 1 APPLIC; Start 12/17/18 at 22:00 Assessment/Plan Hospital Course (Demo Recall) 1. Atrial fibrillation/atrial flutter with rapid ventricular response - now in SR - treated - will follow. Remains in sinus now. RATE CONTROLLED. Off tele now. Stable by exam. NO cahnges. 2. Hypotension/shock state, likely septic - better now. .BP well controlled now. In good range now. BP better. Much better. BP maintained. 3. History of cardiomyopathy with mildly depressed left ventricular ejection fraction approximately 40% to 45%. Keep euvolemic. Chronic. NO intervention needed. No ICD indicated. 4. History of congestive heart failure, systolic, chronic. 5. Possible pneumonia - on meds, con't anti-bx. NO new fevers. Treated. 6. Sepsis- treated, better now -no fevers. Imprved. WBC in range. 7. Leukocytosis. 8. Anemia requiring transfusions- no active bleed now. Treated. 9. Hypernatremia. 10. Coagulopathy. 11. Urinary tract infection. 12.. Malnutrition - feeds at goal. ZAHIRA RAJAN MD December 21, 2018 13:35
[2018-12-21 14:28] VITALS: BP 101/51; PULSE 97; RESP 20
[2018-12-21 20:00] VITALS: BP 101/58; PULSE 86; RESP 18
--- NOTE | 2018-12-21 20:08 | CONS ---
Assessment/Plan Assessment/Plan Assessment/Plan (Daily) Pneumonia Supra nuclear palsy History of hypertension History of type 2 diabetes Failure to thrive Osteomyelitis right hip Been no change in patient's overall neurological condition. I have not heard back from family members concerning hospice care which I recommended. We will contact them once again prior to patient's discharge. I have explained that hospice care would be a higher level of care given to patient at home not necessarily that she will soon. Consultation Date/Type/Reason Admit Date/Time Nov 26, 2018 at 20:42 Initial Consult Date 11/27/18 Requesting Provider: NADEEN CHO Date/Time of Note DATE: 12/21/18 TIME: 20:06 Exam/Review of Systems Exam Vitals Vital Signs Date Temp Pulse Resp B/P (MAP) Pulse Ox O2 O2 Flow FiO2 Time Delivery Rate 12/21/18 98.9 86 18 101/58 100 20:00 (72) 12/21/18 Aerosol 5.0 28 19:51 T Tube Intake and Output 12/20/18 12/20/18 12/21/18 1515:00 23:00 07:00 IntakeIntake Total 200 ml 1230 ml 150 ml OutputOutput Total 1300 ml BalanceBalance 200 ml -70 ml 150 ml Results Result Diagram: 12/21/18 0447 12/21/18 0447 Results 24hrs Laboratory Tests Test 12/21/18 00:17 12/21/18 02:56 12/21/18 04:47 12/21/18 06:09 Bedside Glucose 210 187 178 White Blood Count 7.7 Red Blood Count 2.84 L Hemoglobin 7.3 L Hematocrit 23.9 L Mean Corpuscular 84.2 Volume Mean Corpuscular 25.7 L Hemoglobin Mean Corpuscular 30.5 L Hemoglobin Concent Red Cell 18.4 H Distribution Width Platelet Count 322 Mean Platelet Volume 10.7 H Immature 0.400 Granulocytes % Neutrophils % 72.4 Lymphocytes % 17.0 Monocytes % 7.8 Eosinophils % 1.7 Basophils % 0.7 Nucleated Red Blood 0.0 Cells % Immature 0.030 Granulocytes # Neutrophils # 5.6 Lymphocytes # 1.3 Monocytes # 0.6 Eosinophils # 0.1 Basophils # 0.1 Nucleated Red Blood 0.0 Cells # Sodium Level 140 Potassium Level 4.1 Chloride Level 107 Carbon Dioxide Level 29 Anion Gap 4 L Blood Urea Nitrogen 20 Creatinine 0.34 L Est Glomerular Filtrat Rate mL/min Glucose Level 153 Calcium Level 8.2 L Test 12/21/18 12:25 12/21/18 17:28 Bedside Glucose 178 130 Medications Medication Current Medications IV Flush (NS 10 ml) 10 ml Q8 IV Last administered on 12/21/18at 13:36; Admin Dose 10 ML; Start 11/26/18 at 22:00 Ascorbic Acid (Vitamin C) 500 mg DAILY GTB Last administered on 12/21/18at 09:02; Admin Dose 500 MG; Start 11/27/18 at 09:00 Baclofen (Lioresal) 20 mg TID GTB Last administered on 12/21/18 12:30; Admin Dose 20 MG; Start 11/26/18 at 21:00 Cholecalciferol (Vitamin D) 2,000 unit DAILY GTB Last administered on 12/21/18 09:03; Admin Dose 2,000 UNIT; Start 11/27/18 at 09:00 Cyanocobalamin (Vitamin B12) 1,000 mcg DAILY GTB Last administered on 12/21/18 09:03; Admin Dose 1,000 MCG; Start 11/27/18 at 09:00 Miscellaneous Information 1 ea NOTE XX ; Start 11/26/18 at 18:30 Glucose (Glutose) 15 gm Q15M PRN PO DECREASED GLUCOSE; Start 11/26/18 at 18:30 Glucose (Glutose) 22.5 gm Q15M PRN PO DECREASED GLUCOSE; Start 11/26/18 at 18:30 Dextrose (D50w Syringe) 25 ml Q15M PRN IV DECREASED GLUCOSE; Start 11/26/18 at 18:30 Dextrose (D50w Syringe) 50 ml Q15M PRN IV DECREASED GLUCOSE; Start 11/26/18 at 18:30 Glucagon (Glucagen) 1 mg Q15M PRN IM DECREASED GLUCOSE; Start 11/26/18 at 18:30 Glucose (Glutose) 15 gm Q15M PRN BUCCAL DECREASED GLUCOSE; Start 11/26/18 at 18:30 Diagnostic Test (Pha) (Accu-Chek) 1 ea 02 XX Last administered on 12/11/18at 01:49; Admin Dose 1 EA; Start 11/27/18 at 02:00 Lorazepam (Ativan) 1 mg Q2H PRN IV SEIZURES Last administered on 11/29/18 14:39; Admin Dose 1 MG; Start 11/27/18 at 18:00 Aspirin (Aspirin) 81 mg DAILY GTB Last administered on 12/21/18 09:02; Admin Dose 81 MG; Start 11/29/18 at 10:00 Levetiracetam 100 ml @ 400 mls/hr Q12 IVPB Last administered on 12/21/18 09:02; Admin Dose 400 MLS/HR; Start 11/29/18 at 21:00 Acetaminophen (Tylenol Liquid) 650 mg Q4H PRN GTB MILD PAIN(1-3)OR ELEVATED TEMP Last administered on 12/12/18 16:18; Admin Dose 650 MG; Start 12/03/18 at 02:00 Insulin Aspart (Novolog Insulin Pen) NOVOLOG *MILD* ALGORI... Q6 SC Last administered on 12/21/18 12:32; Admin Dose 1 UNIT; Start 12/09/18 at 18:00 Alteplase, Recombinant (Cathflo (Activase)) 2 mg MAY REPEAT X1 PRN CATHETER IF CATHETER REMAINS OCCULUDED Last administered on 12/14/18 21:48; Admin Dose 2 MG; Start 12/09/18 at 23:30 Albuterol/ Ipratropium (Duoneb) 3 ml Q6HWA RESP THERAPY HHN Last administered on 12/21/18 19:51; Admin Dose 3 ML; Start 12/12/18 at 14:00 Albuterol/ Ipratropium (Duoneb) 3 ml Q4H RESP THERAPY PRN HHN SHORTNESS OF BREATH Last administered on 12/15/18 19:48; Admin Dose 3 ML; Start 12/12/18 at 12:30 Ceftazidime 50 ml @ 100 mls/hr Q8 IVPB Last administered on 12/21/18 16:47; Admin Dose 100 MLS/HR; Start 12/12/18 at 18:00 Metronidazole 100 ml @ 100 mls/hr Q8 IVPB Last administered on 12/21/18 13:36; Admin Dose 100 MLS/HR; Start 12/12/18 at 17:00 Collagenase (Santyl) 1 applic DAILY TOP Last administered on 12/21/18 09:02; Admin Dose 1 APPLIC; Start 12/13/18 at 10:30 Sodium Hypochlorite (Dakins Diluted (40)) 1 applic BID IRR Last administered on 12/21/18at 09:04; Admin Dose 1 APPLIC; Start 12/17/18 at 22:00 GRACE SMITH December 21, 2018 20:08
[2018-12-22] MEDS: INSULIN ASPART [NOVOLOG] 3 ML PEN SC SCH ×5 (00:48→23:43)
[2018-12-22 02:00] VITALS: BP 103/55; PULSE 77; RESP 18
[2018-12-22] MEDS: ACCU-CHEK XX SCH (02:00)
[2018-12-22] MEDS: metroNIDAZOLE 500 MG/NS (PMX) 100 ML IVPB SCH ×3 (05:12→22:29)
[2018-12-22] MEDS: CEFTAZIDIME 1GM/50 ML (PMX) 50 ML IVPB SCH ×3 (06:03→21:41)
--- NOTE | 2018-12-22 06:15 | EN ---
Date/Time of Note Date/Time of Note DATE: 12/22/18 TIME: 06:13 Event Note Medicine Medicine Event Note EMR reviewed. I coordinated and directed care with [employer] yesterday via Tele[employer]. Please reference telemediq logs. I will review and direct care today. KASH MONDRAGON MD December 22, 2018 06:15
[2018-12-22] MEDS: ALBUTEROL/IPRATROPIUM (NEB) 3 ML AMP HHN SCH ×3 (07:52→19:27)
[2018-12-22 08:07] VITALS: BP 116/56; PULSE 83; RESP 20
[2018-12-22] MEDS: LEVETIRACETAM 1000 MG (PMX) 100 ML IVPB SCH ×2 (09:14→21:08)
--- NOTE | 2018-12-22 09:14 | CONS ---
Assessment/Plan Assessment/Plan Assessment/Plan (Daily) # sepsis, endovascular infection, respiratory - recurrent sepsis due to bacteremia and pneumonia +/- wound infection. Procalcitonin was 1.96 on 12/07/2018 - leukocytosis and fever resolved - bacteremia d/t bacteroides fragilis 12/07/2018 possibly d/t intra-abdominal infection - VAP d/t pseudomonas 12/08/2018 and 12/13/2018 - s/p septic shock due to probable UTI - s/p coag negative Staph in blood cultures on 11/26/2018, probable contaminant - colonization of the airway by pseudomonas and corynebacteria on 11/26/2018; MDR pseudomonas in trach aspirate cx from 12/08/2018 likely a colonizer - h/o sepsis due to bacteremia and pneumonia - h/o bacteremia: blood cultures grew enterococcus faecalis on 09/17/2018 secondary to R hip wound infection as its wound culture on 09/16/2018 grew E. faecalis as well - h/o recurrent acute on chronic hypoxemic respiratory failure secondary to secretion retention, mucous plugging, major left lung atelectasis, severe shunting - h/o probable aspiration pneumonia. - h/o pneumonia due to pseudomonas on 09/30/2018. s/p Levaquin (10/03/18- 10/07/2018), Meropenem (restart 09/30/2018-10/03/18, 10/12/18 - 10/19/2018) and empiric Amikacin (09/30/18-10/03/18) - H/o intubation on 09/30/2018 - H/o tracheostomy on 10/04/2018 - h/o pseudomonas in urine culture on 09/17/2018 with mild pyuria; treated with Cefepime (09/20/2018-09/25/2018) # infection of wound, OM of R hip, pressure ulcer - colonization of the wound of R hip by pseudomonas (wound culture on 10/31/2018), acinetobacter (wound culture on 11/27/2018) - h/o repeat debridement at [facility] on 11/03/[address]. [address] Pierson, her p lastic surgeon at [facility], the wound appeared clean during the I&D (my conversation with him on 11/06/2018) - H/o stage sacral decubitus ulcer extending to bilateral buttocks. She reportedly had total hip dislocation and exposed femoral head. CT pelvis showed e/o OM. Pt complete IV vancomycin (09/17/2018-10/29/2018) for sacral OM associated with E. faecalis - H/o sharp excisional debridement down to and including bone of the sacrum on 08/22/2018 and 09/19/2018 - H/o excision of R hip ulcer, girdlestone resection arthroplasty and flap reconstruction 09/23/2018. The surgical pathology showed osteomyelitis of R hip bone, soft tissue cellulitis, and bony margin of excision was free of the disease - according to Dr. Pierson who performed the wound debridement, Pt needs wound care until granulation tissue builds and infection is cleared. Then he would decide if Pt should get repeat closure or not - XR of R hip on 11/09/2009 showed the remaining R femoral shaft in transverse orientation and with lateral deviation - h/o removal of devitalized/necrotic tissue by Dr. Pierson on 10/07/2018 # renal/ - funguria, recurrent; Pt completed 3 day course of fluconazole (12/04-12/06/2018). Ramires was changed on 12/04/2018. - hematuria on 11/26/2018 - h/o moderate L hydronephrosis per renal US # heme, neuro - h/o acute on chronic anemia requiring PRBC - chronic metabolic encephalopathy - supranuclear palsy # endo, cardiac - diabetes mellitus - A fib with RVR - chronic diastolic HF (EF 40-45% with grade 1 DD per 2D Echo 10/24/2018) - h/o hypertension # allergy - penicillin allergy (throat swelling) but Pt tolerates cefepime, ceftazidime, meropenem Recommendations: - Continue Ceftazidime (12/12/2018 - ); s/p jose (restart 12/07-12/12/2018) and vancomycin (12/07-12/14/2018) - plan to finish 10 days depending on procalcitonin resolution - end date 12/22/18 - Continue Flagyl IV (for possible intra abdominal infection in result of blood cxs +Bacteroides fragilis)--14 days from first neg bcx - end date 12/23/18 - Consider CT abdomen pelvis to determine if colonic perf if full aggressive care desired - Serial procalc periodically prior to abx cessation Plan was d/w patient's RN and with Dr. Breaux via [employer] messaging. Thank you Consultation Date/Type/Reason Admit Date/Time Nov 26, 2018 at 20:42 Initial Consult Date 11/27/18 Type of Consult ID Reason for Consultation SEPSIS Requesting Provider: NADEEN CHO Date/Time of Note DATE: 12/22/18 TIME: 09:13 24 HR Interval Summary Free Text/Dictation Plan for discharge to home per grand daughter Home Health arrangement per lining caser staff Subjective hx not possible: pt non-verbal Constitutional: requiring IVF Exam/Review of Systems Exam Vitals Vital Signs Date Temp Pulse Resp B/P (MAP) Pulse Ox O2 O2 Flow FiO2 Time Delivery Rate 12/22/18 99.3 83 20 116/56 93 Trach 08:07 (76) Collar 12/22/18 5.0 28 07:52 Intake and Output 12/21/18 12/21/18 12/22/18 1515:00 23:00 07:00 IntakeIntake Total 1360 ml 150 ml OutputOutput Total 400 ml 500 ml BalanceBalance 960 ml -350 ml Constitutional: non-verbal, frail Psych: nl mood/affect Eyes: nl lids, nl sclera ENMT: nl external ears & nose Respiratory: diminished breath sounds (bilaterally at bases) Cardiovascular: nl pulses, other (s1s2) Gastrointestinal: soft, non-tender Musculoskeletal: joint tenderness, muscle weakness, range of motion Extremities: edema Neurological: unresponsive Results Result Diagram: 12/21/18 0447 12/21/18 0447 Results 24hrs Laboratory Tests Test 12/21/18 12:25 12/21/18 17:28 12/22/18 00:45 12/22/18 02:37 Bedside Glucose 178 130 187 184 Test 12/22/18 06:05 Bedside Glucose 158 Medications Medication Current Medications IV Flush (NS 10 ml) 10 ml Q8 IV Last administered on 12/22/18at 05:12; Admin Dose 10 ML; Start 11/26/18 at 22:00 Ascorbic Acid (Vitamin C) 500 mg DAILY GTB Last administered on 12/21/18at 09:02; Admin Dose 500 MG; Start 11/27/18 at 09:00 Baclofen (Lioresal) 20 mg TID GTB Last administered on 12/21/18at 20:56; Admin Dose 20 MG; Start 11/26/18 at 21:00 Cholecalciferol (Vitamin D) 2,000 unit DAILY GTB Last administered on 12/21/18 09:03; Admin Dose 2,000 UNIT; Start 11/27/18 at 09:00 Cyanocobalamin (Vitamin B12) 1,000 mcg DAILY GTB Last administered on 12/21/18 09:03; Admin Dose 1,000 MCG; Start 11/27/18 at 09:00 Miscellaneous Information 1 ea NOTE XX ; Start 11/26/18 at 18:30 Glucose (Glutose) 15 gm Q15M PRN PO DECREASED GLUCOSE; Start 11/26/18 at 18:30 Glucose (Glutose) 22.5 gm Q15M PRN PO DECREASED GLUCOSE; Start 11/26/18 at 18:30 Dextrose (D50w Syringe) 25 ml Q15M PRN IV DECREASED GLUCOSE; Start 11/26/18 at 18:30 Dextrose (D50w Syringe) 50 ml Q15M PRN IV DECREASED GLUCOSE; Start 11/26/18 at 18:30 Glucagon (Glucagen) 1 mg Q15M PRN IM DECREASED GLUCOSE; Start 11/26/18 at 18:30 Glucose (Glutose) 15 gm Q15M PRN BUCCAL DECREASED GLUCOSE; Start 11/26/18 at 18:30 Diagnostic Test (Pha) (Accu-Chek) 1 ea 02 XX Last administered on 12/11/18 01:49; Admin Dose 1 EA; Start 11/27/18 at 02:00 Lorazepam (Ativan) 1 mg Q2H PRN IV SEIZURES Last administered on 11/29/18 14:39; Admin Dose 1 MG; Start 11/27/18 at 18:00 Aspirin (Aspirin) 81 mg DAILY GTB Last administered on 12/21/18 09:02; Admin Dose 81 MG; Start 11/29/18 at 10:00 Levetiracetam 100 ml @ 400 mls/hr Q12 IVPB Last administered on 12/21/18 20:55; Admin Dose 400 MLS/HR; Start 11/29/18 at 21:00 Acetaminophen (Tylenol Liquid) 650 mg Q4H PRN GTB MILD PAIN(1-3)OR ELEVATED TEMP Last administered on 12/12/18 16:18; Admin Dose 650 MG; Start 12/03/18 at 02:00 Insulin Aspart (Novolog Insulin Pen) NOVOLOG *MILD* ALGORI... Q6 SC Last admi nistered on 12/22/18 06:10; Admin Dose 1 UNIT; Start 12/09/18 at 18:00 Alteplase, Recombinant (Cathflo (Activase)) 2 mg MAY REPEAT X1 PRN CATHETER IF CATHETER REMAINS OCCULUDED Last administered on 12/14/18 21:48; Admin Dose 2 MG; Start 12/09/18 at 23:30 Albuterol/ Ipratropium (Duoneb) 3 ml Q6HWA RESP THERAPY HHN Last administered on 12/22/18 07:52; Admin Dose 3 ML; Start 12/12/18 at 14:00 Albuterol/ Ipratropium (Duoneb) 3 ml Q4H RESP THERAPY PRN HHN SHORTNESS OF BREATH Last administered on 12/15/18 19:48; Admin Dose 3 ML; Start 12/12/18 at 12:30 Ceftazidime 50 ml @ 100 mls/hr Q8 IVPB Last administered on 12/22/18 06:03; Admin Dose 100 MLS/HR; Start 12/12/18 at 18:00 Metronidazole 100 ml @ 100 mls/hr Q8 IVPB Last administered on 12/22/18 05:12; Admin Dose 100 MLS/HR; Start 12/12/18 at 17:00 Collagenase (Santyl) 1 applic DAILY TOP Last administered on 12/21/18 09:02; Admin Dose 1 APPLIC; Start 12/13/18 at 10:30 Sodium Hypochlorite (Dakins Diluted (1/40)) 1 applic BID IRR Last administered on 12/21/18 20:56; Admin Dose 1 APPLIC; Start 12/17/18 at 22:00 NADEEN CHO December 22, 2018 09:14
[2018-12-22] MEDS: COLLAGENASE 5 GM (UD JAR) TOP SCH (09:15)
[2018-12-22] MEDS: DAKINS 0.0125%(1/40) 473 ML SOLUTION IRR SCH ×2 (09:16→21:09)
[2018-12-22] MEDS: BACLOFEN 10 MG TAB GTB SCH ×3 (09:16→21:41)
[2018-12-22] MEDS: BALSAM PERU/CASTOR OIL 60 GM TUBE TOP SCH (09:16)
[2018-12-22] MEDS: CYANOCOBALAMIN 500 MCG TAB GTB SCH (09:17)
[2018-12-22] MEDS: ASPIRIN 81 MG TAB GTB SCH (09:17)
[2018-12-22] MEDS: CHOLECALCIFEROL 2,000 UNIT CAP GTB SCH (09:17)
[2018-12-22] MEDS: ASCORBIC ACID 500 MG TAB GTB SCH (09:17)
--- NOTE | 2018-12-22 12:06 | CONS ---
Consultation Date/Type/Reason Admit Date/Time Nov 26, 2018 at 20:42 Type of Consult Cardiology Date/Time of Note DATE: 12/22/18 TIME: 12:06 Hx of Present Illness VS reviewed - stable. Past Medical History Home Meds Reported Medications Ondansetron Hcl* (Ondansetron Hcl*) 4 Mg Tablet, 4 MG PO Q6H PRN for n/v, TAB 11/26/18 Ascorbic Acid* (Vitamin C*) 500 Mg Capsule.sa, 500 MG GTB DAILY, CAP 11/26/18 Acetaminophen* (Acetaminophen*) 325 Mg Tablet, 650 MG GTB Q4H PRN for PAIN AND OR ELEVATED TEMP, #30 TAB 11/26/18 Sertraline Hcl* (Sertraline Hcl*) 50 Mg Tablet, 50 MG GTB DAILY, #30 TAB 11/26/18 Protein Supplement (Promod) 946 Ml Liquid, 30 ML GTB for supplement 11/26/18 Lansoprazole* (Lansoprazole*) 30 Mg Capsule.dr, 30 MG GTB BID, CAP 11/26/18 Hydrocodone/Acetaminophen (Melvin 5-325 Tablet) 1 Each Tablet, 1 EACH GTB Q4H PRN for PAIN, TAB 11/26/18 Polyethylene Glycol* (Miralax*) 17 Gm Powd.pack, 17 GM GTB BID, #60 PACKET 11/26/18 Metoprolol Tartrate* (Lopressor*) 25 Mg Tab, 25 MG GTB BID, #60 TAB 11/26/18 Lisinopril* (Lisinopril*) 5 Mg Tablet, 5 MG GTB DAILY, #30 TAB 11/26/18 Insulin Aspart* (Novolog Insulin Pen*) 100 Unit/Ml Soln, 0 SC .SLIDING SCALE AC, EA INJECT PER SLIDING SCALE; IF 70-150=0unit; 151-200= 2units; 201-250=4units; 251-300=6units; 301-350=8units; 351-400=10units and Call , Subcutaneously before meals and at bedtime fo DM. 11/26/18 Insulin Glargine* (Lantus*) 100 Unit/Ml Soln, 5 UNIT SC QHS, #1 VIAL [id number] SQ AT BEDTIME FOR TYPE 2DIABETES MELLITUS WITHOUT COMPLICATIONS 11/26/18 Levetiracetam* (Keppra*) 500 Mg/5 Ml Solution, 100 MG GTB BID for SEIZURE for 30 Days, BOTTLE 11/26/18 Ipratropium-Albuterol (Ipratropium-Albuterol) 0.5-3 Mg/3 Ml Ampul.neb, 3 ML INHALATION Q6, #30 VIAL 11/26/18 Ferrous Sulfate* (Ferrous Sulfate*) 220 Mg/5 Ml Solution, 330 MG PO BID, ML 11/26/18 Epoetin Haroon (Epogen) 10,000 Units/Ml Soln, [id number] UNITS SC QWED for ANEMIA, VIAL 11/26/18 Cyanocobalamin* (Vitamin B-12*) 1,000 Mcg Tablet.sa, 1000 MCG GTB DAILY, TAB 11/26/18 Clonazepam* (Clonazepam*) 0.5 Mg Tablet, 0.5 MG GTB BID, TAB 11/26/18 Cholecalciferol (Vitamin D3) (VITAMIN D-3) 2,000 Unit Capsule, 2000 UNIT GTB DAILY, CAP 11/26/18 Baclofen* (Baclofen*) 10 Mg Tablet, 20 MG GTB TID for MUSCLE SPASM, TAB 11/26/18 Aspirin* (Aspirin* EC) 81 Mg Tablet.dr, 81 MG GTB DAILY, TAB 11/26/18 Amiodarone Hcl* (Amiodarone Hcl*) 200 Mg Tablet, 200 MG GTB BID for ARRHYTMIA, #60 TAB 11/26/18 Zolpidem Tartrate* (Zolpidem Tartrate*) 5 Mg Tablet, 5 MG GTB QHS PRN for INSOMNIA, #30 TAB 11/26/18 Acidophilus-Bulgaricus* (BD Lactinex*) 1 Pkt Packet, 1 PKT GTB BID, PACKET 11/26/18 Zinc Sulfate* (Zinc Sulfate*) 220 Mg Tablet, 220 MG GTB DAILY for 30 Days, #30 TAKE 1 CAPSULE VIA G-TUBE EVERY DAY 11/26/18 Estrogens Conjugated* (Premarin*) 0.45 Mg Tablet, 1.5 MG PO DAILY 02/18/13 Medications Current Medications IV Flush (NS 10 ml) 10 ml Q8 IV Last administered on 12/22/18at 05:12; Admin Dose 10 ML; Start 11/26/18 at 22:00 Ascorbic Acid (Vitamin C) 500 mg DAILY GTB Last administered on 12/22/18 09:17; Admin Dose 500 MG; Start 11/27/18 at 09:00 Baclofen (Lioresal) 20 mg TID GTB Last administered on 12/22/18 09:16; Admin Dose 20 MG; Start 11/26/18 at 21:00 Cholecalciferol (Vitamin D) 2,000 unit DAILY GTB Last administered on 12/22/18 09:17; Admin Dose 2,000 UNIT; Start 11/27/18 at 09:00 Cyanocobalamin (Vitamin B12) 1,000 mcg DAILY GTB Last administered on 12/22/18 09:17; Admin Dose 1,000 MCG; Start 11/27/18 at 09:00 Miscellaneous Information 1 ea NOTE XX ; Start 11/26/18 at 18:30 Glucose (Glutose) 15 gm Q15M PRN PO DECREASED GLUCOSE; Start 11/26/18 at 18:30 Glucose (Glutose) 22.5 gm Q15M PRN PO DECREASED GLUCOSE; Start 11/26/18 at 18:30 Dextrose (D50w Syringe) 25 ml Q15M PRN IV DECREASED GLUCOSE; Start 11/26/18 at 18:30 Dextrose (D50w Syringe) 50 ml Q15M PRN IV DECREASED GLUCOSE; Start 11/26/18 at 18:30 Glucagon (Glucagen) 1 mg Q15M PRN IM DECREASED GLUCOSE; Start 11/26/18 at 18:30 Glucose (Glutose) 15 gm Q15M PRN BUCCAL DECREASED GLUCOSE; Start 11/26/18 at 18:30 Diagnostic Test (Pha) (Accu-Chek) 1 ea 02 XX Last administered on 12/11/18at 01: 49; Admin Dose 1 EA; Start 11/27/18 at 02:00 Lorazepam (Ativan) 1 mg Q2H PRN IV SEIZURES Last administered on 11/29/18 14:39; Admin Dose 1 MG; Start 11/27/18 at 18:00 Aspirin (Aspirin) 81 mg DAILY GTB Last administered on 12/22/18 09:17; Admin Dose 81 MG; Start 11/29/18 at 10:00 Levetiracetam 100 ml @ 400 mls/hr Q12 IVPB Last administered on 12/22/18 09:14; Admin Dose 400 MLS/HR; Start 11/29/18 at 21:00 Acetaminophen (Tylenol Liquid) 650 mg Q4H PRN GTB MILD PAIN(1-3)OR ELEVATED TEMP Last administered on 12/12/18 16:18; Admin Dose 650 MG; Start 12/03/18 at 02:00 Insulin Aspart (Novolog Insulin Pen) NOVOLOG *MILD* ALGORI... Q6 SC Last administered on 12/22/18 06:10; Admin Dose 1 UNIT; Start 12/09/18 at 18:00 Alteplase, Recombinant (Cathflo (Activase)) 2 mg MAY REPEAT X1 PRN CATHETER IF CATHETER REMAINS OCCULUDED Last administered on 12/14/18 21:48; Admin Dose 2 MG; Start 12/09/18 at 23:30 Albuterol/ Ipratropium (Duoneb) 3 ml Q6HWA RESP THERAPY HHN Last administered on 12/22/18 07:52; Admin Dose 3 ML; Start 12/12/18 at 14:00 Albuterol/ Ipratropium (Duoneb) 3 ml Q4H RESP THERAPY PRN HHN SHORTNESS OF BREATH Last administered on 12/15/18 19:48; Admin Dose 3 ML; Start 12/12/18 at 12:30 Ceftazidime 50 ml @ 100 mls/hr Q8 IVPB Last administered on 12/22/18 06:03; Admin Dose 100 MLS/HR; Start 12/12/18 at 18:00 Metronidazole 100 ml @ 100 mls/hr Q8 IVPB Last administered on 12/22/18 05:12; Admin Dose 100 MLS/HR; Start 12/12/18 at 17:00 Collagenase (Santyl) 1 applic DAILY TOP Last administered on 12/22/18 09:15; Admin Dose 1 APPLIC; Start 12/13/18 at 10:30 Sodium Hypochlorite (Dakins Diluted (1/40)) 1 applic BID IRR Last administered on 12/22/18 09:16; Admin Dose 1 APPLIC; Start 12/17/18 at 22:00 Allergies: Coded Allergies: Penicillins (Verified Allergy, Unknown, 07/06/13) morphine (Verified Adverse Reaction, Mild, "LOOPY", 10/08/18) Uncoded Allergies: PLASTIC TAPE (Allergy, Unknown, 04/01/07) Past Surgical History Past Surgical Hx: other (I&D of R hip) Social History Alcohol Use: other (unknown) Smoking Status: Never smoker Drug Use: other (unkknown) Exam/Review of Systems Vital Signs Vitals Vital Signs Date Temp Pulse Resp B/P (MAP) Pulse Ox O2 O2 Flow FiO2 Time Delivery Rate 12/22/18 99.3 83 20 116/56 93 Trach 08:07 (76) Collar 12/22/18 5.0 28 07:52 Intake and Output 12/21/18 12/21/18 12/22/18 1515:00 23:00 07:00 IntakeIntake Total 1360 ml 150 ml OutputOutput Total 400 ml 500 ml BalanceBalance 960 ml -350 ml Labs Result Diagram: 12/21/18 0447 12/21/18 0447 Results 24hrs Laboratory Tests Test 12/21/18 12:25 12/21/18 17:28 12/22/18 00:45 12/22/18 02:37 Bedside Glucose 178 130 187 184 Test 12/22/18 06:05 Bedside Glucose 158 Medications Medications Current Medications IV Flush (NS 10 ml) 10 ml Q8 IV Last administered on 12/22/18at 05:12; Admin Dose 10 ML; Start 11/26/18 at 22:00 Ascorbic Acid (Vitamin C) 500 mg DAILY GTB Last administered on 12/22/18at 09:17; Admin Dose 500 MG; Start 11/27/18 at 09:00 Baclofen (Lioresal) 20 mg TID GTB Last administered on 12/22/18at 09:16; Admin Dose 20 MG; Start 11/26/18 at 21:00 Cholecalciferol (Vitamin D) 2,000 unit DAILY GTB Last administered on 12/22/18at 09:17; Admin Dose 2,000 UNIT; Start 11/27/18 at 09:00 Cyanocobalamin (Vitamin B12) 1,000 mcg DAILY GTB Last administered on 12/22/18at 09:17; Admin Dose 1,000 MCG; Start 11/27/18 at 09:00 Miscellaneous Information 1 ea NOTE XX ; Start 11/26/18 at 18:30 Glucose (Glutose) 15 gm Q15M PRN PO DECREASED GLUCOSE; Start 11/26/18 at 18:30 Glucose (Glutose) 22.5 gm Q15M PRN PO DECREASED GLUCOSE; Start 11/26/18 at 18:30 Dextrose (D50w Syringe) 25 ml Q15M PRN IV DECREASED GLUCOSE; Start 11/26/18 at 18:30 Dextrose (D50w Syringe) 50 ml Q15M PRN IV DECREASED GLUCOSE; Start 11/26/18 at 18:30 Glucagon (Glucagen) 1 mg Q15M PRN IM DECREASED GLUCOSE; Start 11/26/18 at 18:30 Glucose (Glutose) 15 gm Q15M PRN BUCCAL DECREASED GLUCOSE; Start 11/26/18 at 18:30 Diagnostic Test (Pha) (Accu-Chek) 1 ea 02 XX Last administered on 12/11/18 01:49; Admin Dose 1 EA; Start 11/27/18 at 02:00 Lorazepam (Ativan) 1 mg Q2H PRN IV SEIZURES Last administered on 11/29/18 14:39; Admin Dose 1 MG; Start 11/27/18 at 18:00 Aspirin (Aspirin) 81 mg DAILY GTB Last administered on 12/22/18 09:17; Admin Dose 81 MG; Start 11/29/18 at 10:00 Levetiracetam 100 ml @ 400 mls/hr Q12 IVPB Last administered on 12/22/18 09:14; Admin Dose 400 MLS/HR; Start 11/29/18 at 21:00 Acetaminophen (Tylenol Liquid) 650 mg Q4H PRN GTB MILD PAIN(1-3)OR ELEVATED TE MP Last administered on 12/12/18 16:18; Admin Dose 650 MG; Start 12/03/18 at 02:00 Insulin Aspart (Novolog Insulin Pen) NOVOLOG *MILD* ALGORI... Q6 SC Last administered on 12/22/18 06:10; Admin Dose 1 UNIT; Start 12/09/18 at 18:00 Alteplase, Recombinant (Cathflo (Activase)) 2 mg MAY REPEAT X1 PRN CATHETER IF CATHETER REMAINS OCCULUDED Last administered on 12/14/18 21:48; Admin Dose 2 MG; Start 12/09/18 at 23:30 Albuterol/ Ipratropium (Duoneb) 3 ml Q6HWA RESP THERAPY HHN Last administered on 12/22/18 07:52; Admin Dose 3 ML; Start 12/12/18 at 14:00 Albuterol/ Ipratropium (Duoneb) 3 ml Q4H RESP THERAPY PRN HHN SHORTNESS OF BREATH Last administered on 12/15/18 19:48; Admin Dose 3 ML; Start 12/12/18 at 12:30 Ceftazidime 50 ml @ 100 mls/hr Q8 IVPB Last administered on 12/22/18 06:03; Admin Dose 100 MLS/HR; Start 12/12/18 at 18:00 Metronidazole 100 ml @ 100 mls/hr Q8 IVPB Last administered on 12/22/18 05:12; Admin Dose 100 MLS/HR; Start 12/12/18 at 17:00 Collagenase (Santyl) 1 applic DAILY TOP Last administered on 12/22/18 09:15; Admin Dose 1 APPLIC; Start 12/13/18 at 10:30 Sodium Hypochlorite (Dakins Diluted (40)) 1 applic BID IRR Last administered on 12/22/18 09:16; Admin Dose 1 APPLIC; Start 12/17/18 at 22:00 ZAHIRA RAJAN MD December 22, 2018 12:06
--- NOTE | 2018-12-22 12:40 | PN ---
Date/Time of Note Date/Time of Note DATE: 12/22/18 TIME: 12:40 Assessment/Plan VTE Prophylaxis Risk score (from Ns)>0 risk: 6 [place] [facility] [place] contraindicated: other Pharmacological prophylaxis: LMWH Lines/Catheters IV Catheter Type (from [facility]): PICC Line Central line still needed: Yes Urinary Cath still in place: Yes Reason Cath still needed: skin wounds contaminated by urine Assessment/Plan Hospital Course -Hyperkalemia - Kayexalate 30 gm GT x1 - BMP am - SEPSIS -per ID - Hypernatremia - monitor BMP - If no improvement; will get nephrology consult -Atrial fibrillation/ flutter with rapid ventricular response. Patient is currently in sinus rhythm. - Continue amiodarone. Dr. Monson is following in cardiology consultation. -Progressive supranuclear palsy -Respiratory failure with tracheostomy patient is currently on cool aerosol mist. -Chronic encephalopathy -Decubitus ulcer of the right hip and sacrum, status post Girdlestone procedure of the right hip with flap in September 2018, followed by removal of necrotic tissue by Dr. Triplett at [facility]. - sp evaluation by ortho- dr matos -Right hip wound infection with OM of R hip, completed treatment with antibiot ics. - surgery follows -Wound dehiscence, s/p repeat debridement at [facility] on 11/03/2018. -Diabetes - GLYCEMIC control -Chronic diastolic CHF -Dysphagia with GT - aspiration precautions -Anemia of chronic disease -Failure to thrive, Dr. Prieto is following in palliative care consultation. -DNR/DNI status Result Diagram: 12/21/18 0447 12/21/18446 Results 24hrs Laboratory Tests Test 12/21/18 17:28 12/22/18 00:45 12/22/18 02:37 12/22/18 06:05 Bedside Glucose 130 187 184 158 Subjective 24 Hr Interval Summary Free Text/Dictation Patient remain nonresponsive to voice or touch Exam/Review of Systems Exam Vitals Vital Signs Date Temp Pulse Resp B/P (MAP) Pulse Ox O2 O2 Flow FiO2 Time Delivery Rate 12/22/18 99.3 83 20 116/56 93 Trach 08:07 (76) Collar 12/22/18 5.0 28 07:52 Intake and Output 12/21/18 12/21/18 12/22/18 1515:00 23:00 07:00 IntakeIntake Total 1360 ml 150 ml OutputOutput Total 400 ml 500 ml BalanceBalance 960 ml -350 ml Constitutional: well developed Head: normocephalic, atraumatic Neck: supple Respiratory: clear to auscultation Cardiovascular: regular rate and rhythm Gastrointestinal: soft, non-tender Extremities: normal pulses Results Results 24hrs Laboratory Tests Test 12/21/18 17:28 12/22/18 00:45 12/22/18 02:37 12/22/18 06:05 Bedside Glucose 130 187 184 158 Medications Medication Current Medications IV Flush (NS 10 ml) 10 ml Q8 IV Last administered on 12/22/18at 12:32; Admin D ose 10 ML; Start 11/26/18 at 22:00 Ascorbic Acid (Vitamin C) 500 mg DAILY GTB Last administered on 12/22/18at 09:17; Admin Dose 500 MG; Start 11/27/18 at 09:00 Baclofen (Lioresal) 20 mg TID GTB Last administered on 12/22/18at 12:30; Admin Dose 20 MG; Start 11/26/18 at 21:00 Cholecalciferol (Vitamin D) 2,000 unit DAILY GTB Last administered on 12/22/18 09:17; Admin Dose 2,000 UNIT; Start 11/27/18 at 09:00 Cyanocobalamin (Vitamin B12) 1,000 mcg DAILY GTB Last administered on 12/22/18 09:17; Admin Dose 1,000 MCG; Start 11/27/18 at 09:00 Miscellaneous Information 1 ea NOTE XX ; Start 11/26/18 at 18:30 Glucose (Glutose) 15 gm Q15M PRN PO DECREASED GLUCOSE; Start 11/26/18 at 18:30 Glucose (Glutose) 22.5 gm Q15M PRN PO DECREASED GLUCOSE; Start 11/26/18 at 18:30 Dextrose (D50w Syringe) 25 ml Q15M PRN IV DECREASED GLUCOSE; Start 11/26/18 at 18:30 Dextrose (D50w Syringe) 50 ml Q15M PRN IV DECREASED GLUCOSE; Start 11/26/18 at 18:30 Glucagon (Glucagen) 1 mg Q15M PRN IM DECREASED GLUCOSE; Start 11/26/18 at 18:30 Glucose (Glutose) 15 gm Q15M PRN BUCCAL DECREASED GLUCOSE; Start 11/26/18 at 18:30 Diagnostic Test (Pha) (Accu-Chek) 1 ea 02 XX Last administered on 12/11/18 01:49; Admin Dose 1 EA; Start 11/27/18 at 02:00 Lorazepam (Ativan) 1 mg Q2H PRN IV SEIZURES Last administered on 11/29/18 14:39; Admin Dose 1 MG; Start 11/27/18 at 18:00 Aspirin (Aspirin) 81 mg DAILY GTB Last administered on 12/22/18 09:17; Admin Dose 81 MG; Start 11/29/18 at 10:00 Levetiracetam 100 ml @ 400 mls/hr Q12 IVPB Last administered on 12/22/18 09:14; Admin Dose 400 MLS/HR; Start 11/29/18 at 21:00 Acetaminophen (Tylenol Liquid) 650 mg Q4H PRN GTB MILD PAIN(1-3)OR ELEVATED TEMP Last administered on 12/12/18 16:18; Admin Dose 650 MG; Start 12/03/18 at 02:00 Insulin Aspart (Novolog Insulin Pen) NOVOLOG *MILD* ALGORI... Q6 SC Last administered on 12/22/18 06:10; Admin Dose 1 UNIT; Start 12/09/18 at 18:00 Alteplase, Recombinant (Cathflo (Activase)) 2 mg MAY REPEAT X1 PRN CATHETER IF CATHETER REMAINS OCCULUDED Last administered on 12/14/18 21:48; Admin Dose 2 MG; Start 12/09/18 at 23:30 Albuterol/ Ipratropium (Duoneb) 3 ml Q6HWA RESP THERAPY HHN Last administered on 12/22/18 07:52; Admin Dose 3 ML; Start 12/12/18 at 14:00 Albuterol/ Ipratropium (Duoneb) 3 ml Q4H RESP THERAPY PRN HHN SHORTNESS OF BREATH Last administered on 12/15/18 19:48; Admin Dose 3 ML; Start 12/12/18 at 12:30 Ceftazidime 50 ml @ 100 mls/hr Q8 IVPB Last administered on 12/22/18 06:03; Admin Dose 100 MLS/HR; Start 12/12/18 at 18:00 Metronidazole 100 ml @ 100 mls/hr Q8 IVPB Last administered on 12/22/18at 05: 12; Admin Dose 100 MLS/HR; Start 12/12/18 at 17:00 Collagenase (Santyl) 1 applic DAILY TOP Last administered on 12/22/18at 09:15; Admin Dose 1 APPLIC; Start 12/13/18 at 10:30 Sodium Hypochlorite (Dakins Diluted ()) 1 applic BID IRR Last administered on 12/22/18at 09:16; Admin Dose 1 APPLIC; Start 12/17/18 at 22:00 KALEY NO December 22, 2018 12:40
[2018-12-22 13:56] VITALS: BP 109/59; PULSE 97; RESP 20
[2018-12-22 20:02] VITALS: BP 115/58; PULSE 97; RESP 18
[2018-12-23] MEDS: ACCU-CHEK XX SCH (01:16)
[2018-12-23 01:45] VITALS: BP 94/52; PULSE 77; RESP 18
[2018-12-23] MEDS: CEFTAZIDIME 1GM/50 ML (PMX) 50 ML IVPB SCH ×3 (05:25→21:09)
[2018-12-23] MEDS: INSULIN ASPART [NOVOLOG] 3 ML PEN SC SCH ×4 (05:31→23:57)
[2018-12-23] MEDS: metroNIDAZOLE 500 MG/NS (PMX) 100 ML IVPB SCH ×3 (06:06→22:00)
[2018-12-23 07:22] VITALS: BP 117/56; PULSE 71; RESP 19
[2018-12-23] MEDS: ALBUTEROL/IPRATROPIUM (NEB) 3 ML AMP HHN SCH ×3 (08:20→20:06)
[2018-12-23] MEDS: ASPIRIN 81 MG TAB GTB SCH (09:05)
[2018-12-23] MEDS: LEVETIRACETAM 1000 MG (PMX) 100 ML IVPB SCH ×2 (09:05→20:49)
[2018-12-23] MEDS: BACLOFEN 10 MG TAB GTB SCH ×3 (09:05→20:49)
[2018-12-23] MEDS: ASCORBIC ACID 500 MG TAB GTB SCH (09:05)
[2018-12-23] MEDS: CYANOCOBALAMIN 500 MCG TAB GTB SCH (09:06)
[2018-12-23] MEDS: CHOLECALCIFEROL 2,000 UNIT CAP GTB SCH (09:06)
[2018-12-23] MEDS: BALSAM PERU/CASTOR OIL 60 GM TUBE TOP SCH (09:07)
[2018-12-23] MEDS: COLLAGENASE 5 GM (UD JAR) TOP SCH (09:07)
[2018-12-23] MEDS: DAKINS 0.0125%(1/40) 473 ML SOLUTION IRR SCH ×2 (09:07→20:50)
--- NOTE | 2018-12-23 12:29 | CONS ---
Assessment/Plan Assessment/Plan Hospital Course (Demo Recall) # sepsis, endovascular infection, respiratory - recurrent sepsis due to bacteremia and pneumonia +/- wound infection. Procalcitonin was 1.96 on 12/07/2018 - leukocytosis and fever resolved - bacteremia d/t bacteroides fragilis 12/07/2018 possibly d/t intra-abdominal infection - VAP d/t pseudomonas 12/08/2018 and 12/13/2018 - s/p septic shock due to probable UTI - s/p coag negative Staph in blood cultures on 11/26/2018, probable contaminant - colonization of the airway by pseudomonas and corynebacteria on 11/26/2018; MDR pseudomonas in trach aspirate cx from 12/08/2018 likely a colonizer - h/o sepsis due to bacteremia and pneumonia - h/o bacteremia: blood cultures grew enterococcus faecalis on 09/17/2018 secondary to R hip wound infection as its wound culture on 09/16/2018 grew E. faecalis as well - h/o recurrent acute on chronic hypoxemic respiratory failure secondary to secretion retention, mucous plugging, major left lung atelectasis, severe shunting - h/o probable aspiration pneumonia. - h/o pneumonia due to pseudomonas on 09/30/2018. s/p Levaquin (10/03/18- 10/07/2018), Meropenem (restart 09/30/2018-10/03/18, 10/12/18 - 10/19/2018) and empiric Amikacin (09/30/18-10/03/18) - H/o intubation on 09/30/2018 - H/o tracheostomy on 10/04/2018 - h/o pseudomonas in urine culture on 09/17/2018 with mild pyuria; treated with Cefepime (09/20/2018-09/25/2018) # infection of wound, OM of R hip, pressure ulcer - colonization of the wound of R hip by pseudomonas (wound culture on 10/31/2018), acinetobacter (wound culture on 11/27/2018) - h/o repeat debridement at [facility] on 11/03/[address]. [address] Pierson, her plastic surgeon at [facility], the wound appeared clean during the I&D (my conversation with him on 11/06/2018) - H/o stage sacral decubitus ulcer extending to bilateral buttocks. She reportedly had total hip dislocation and exposed femoral head. CT pelvis showed e/o OM. Pt complete IV vancomycin (09/17/2018-10/29/2018) for sacral OM associated with E. faecalis - H/o sharp excisional debridement down to and including bone of the sacrum on 08/22/2018 and 09/19/2018 - H/o excision of R hip ulcer, girdlestone resection arthroplasty and flap reconstruction 09/23/2018. The surgical pathology showed osteomyelitis of R hip bone, soft tissue cellulitis, and bony margin of excision was free of the diseas e - according to Dr. Pierson who performed the wound debridement, Pt needs wound care until granulation tissue builds and infection is cleared. Then he would decide if Pt should get repeat closure or not - XR of R hip on 11/09/2009 showed the remaining R femoral shaft in transverse orientation and with lateral deviation - h/o removal of devitalized/necrotic tissue by Dr. Pierson on 10/07/2018 # renal/ - funguria, recurrent; Pt completed 3 day course of fluconazole (12/04-12/06/2018). Ramires was changed on 12/04/2018. - hematuria on 11/26/2018 - h/o moderate L hydronephrosis per renal US # heme, neuro - h/o acute on chronic anemia requiring PRBC - chronic metabolic encephalopathy - supranuclear palsy # endo, cardiac - diabetes mellitus - A fib with RVR - chronic diastolic HF (EF 40-45% with grade 1 DD per 2D Echo 10/24/2018) - h/o hypertension # allergy - penicillin allergy (throat swelling) but Pt tolerates cefepime, ceftazidime, meropenem Recommendations: - procalc on 12.26.18 to confirm resolution - Continue Ceftazidime (12/12/2018 - ); s/p jose (restart 12/07-12/12/2018) and vancomycin (12/07-12/14/2018)-- through 12.26.18 - Continue Flagyl IV (for possible intra abdominal infection in result of blood cxs +Bacteroides fragilis)- through 12.26.18 - wound care picts with next change Consultation Date/Type/Reason Admit Date/Time Nov 26, 2018 at 20:42 Initial Consult Date 11/27/18 Requesting Provider: NADEEN CHO Date/Time of Note DATE: 12/23/18 TIME: 12:25 Exam/Review of Systems Exam Vitals Vital Signs Date Temp Pulse Resp B/P (MAP) Pulse Ox O2 O2 Flow FiO2 Time Delivery Rate 12/23/18 5.0 09:00 12/23/18 84 18 94 Aerosol 28 08:22 T Tube 12/23/18 98.8 117/56 07:22 (76) Intake and Output 12/22/18 12/22/18 12/23/18 1515:00 23:00 07:00 IntakeIntake Total 100 ml 1180 ml 250 ml OutputOutput Total 600 ml 700 ml BalanceBalance 100 ml 580 ml -450 ml Constitutional: alert, non-verbal Psych: anxiety Head: normocephalic, atraumatic Eyes: EOMI Respiratory: clear to auscultation, other (diminshed at bases) Gastrointestinal: soft Neurological: [employer] II-XII intact Results Result Diagram: 12/21/18 0447 12/21/187 Results 24hrs Laboratory Tests Test 12/22/18 12:38 12/22/18 17:53 12/22/18 23:40 12/23/18 05:27 Bedside Glucose 142 139 165 167 Test 12/23/18 12:23 Bedside Glucose 141 Medications Medication Current Medications IV Flush (NS 10 ml) 10 ml Q8 IV Last administered on 12/23/18at 05:25; Admin Dose 10 ML; Start 11/26/18 at 22:00 Ascorbic Acid (Vitamin C) 500 mg DAILY GTB Last administered on 12/23/18at 09:05; Admin Dose 500 MG; Start 11/27/18 at 09:00 Baclofen (Lioresal) 20 mg TID GTB Last administered on 12/23/18 09:05; Admin Dose 20 MG; Start 11/26/18 at 21:00 Cholecalciferol (Vitamin D) 2,000 unit DAILY GTB Last administered on 12/23/18at 09:06; Admin Dose 2,000 UNIT; Start 11/27/18 at 09:00 Cyanocobalamin (Vitamin B12) 1,000 mcg DAILY GTB Last administered on 12/23/18at 09:06; Admin Dose 1,000 MCG; Start 11/27/18 at 09:00 Miscellaneous Information 1 ea NOTE XX ; Start 11/26/18 at 18:30 Glucose (Glutose) 15 gm Q15M PRN PO DECREASED GLUCOSE; Start 11/26/18 at 18:30 Glucose (Glutose) 22.5 gm Q15M PRN PO DECREASED GLUCOSE; Start 11/26/18 at 18: 30 Dextrose (D50w Syringe) 25 ml Q15M PRN IV DECREASED GLUCOSE; Start 11/26/18 at 18:30 Dextrose (D50w Syringe) 50 ml Q15M PRN IV DECREASED GLUCOSE; Start 11/26/18 at 18:30 Glucagon (Glucagen) 1 mg Q15M PRN IM DECREASED GLUCOSE; Start 11/26/18 at 18:30 Glucose (Glutose) 15 gm Q15M PRN BUCCAL DECREASED GLUCOSE; Start 11/26/18 at 18:30 Diagnostic Test (Pha) (Accu-Chek) 1 ea 02 XX Last administered on 12/11/18 01:49; Admin Dose 1 EA; Start 11/27/18 at 02:00 Lorazepam (Ativan) 1 mg Q2H PRN IV SEIZURES Last administered on 11/29/18 14:39; Admin Dose 1 MG; Start 11/27/18 at 18:00 Aspirin (Aspirin) 81 mg DAILY GTB Last administered on 12/23/18 09:05; Admin Dose 81 MG; Start 11/29/18 at 10:00 Levetiracetam 100 ml @ 400 mls/hr Q12 IVPB Last administered on 12/23/18 09:05; Admin Dose 400 MLS/HR; Start 11/29/18 at 21:00 Acetaminophen (Tylenol Liquid) 650 mg Q4H PRN GTB MILD PAIN(1-3)OR ELEVATED TEMP Last administered on 12/12/18 16:18; Admin Dose 650 MG; Start 12/03/18 at 02:00 Insulin Aspart (Novolog Insulin Pen) NOVOLOG *MILD* ALGORI... Q6 SC Last administered on 12/23/18 05:31; Admin Dose 1 UNIT; Start 12/09/18 at 18:00 Alteplase, Recombinant (Cathflo (Activase)) 2 mg MAY REPEAT X1 PRN CATHETER IF CATHETER REMAINS OCCULUDED Last administered on 12/14/18 21:48; Admin Dose 2 MG; Start 12/09/18 at 23:30 Albuterol/ Ipratropium (Duoneb) 3 ml Q6HWA RESP THERAPY HHN Last administered on 12/23/18 08:20; Admin Dose 3 ML; Start 12/12/18 at 14:00 Albuterol/ Ipratropium (Duoneb) 3 ml Q4H RESP THERAPY PRN HHN SHORTNESS OF BREATH Last administered on 12/15/18 19:48; Admin Dose 3 ML; Start 12/12/18 at 12:30 Ceftazidime 50 ml @ 100 mls/hr Q8 IVPB Last administered on 12/23/18 05:25; Admin Dose 100 MLS/HR; Start 12/12/18 at 18:00 Metronidazole 100 ml @ 100 mls/hr Q8 IVPB Last administered on 12/23/18 06:06; Admin Dose 100 MLS/HR; Start 12/12/18 at 17:00 Collagenase (Santyl) 1 applic DAILY TOP Last administered on 12/23/18 09:07; Admin Dose 1 APPLIC; Start 12/13/18 at 10:30 Sodium Hypochlorite (Dakins Diluted (1/40)) 1 applic BID IRR Last administered on 12/23/18 09:07; Admin Dose 1 APPLIC; Start 12/17/18 at 22:00 KASH MONDRAGON MD December 23, 2018 12:29
--- NOTE | 2018-12-23 12:30 | CONS ---
Assessment/Plan Assessment/Plan Hospital Course (Demo Recall) IMPRESSION: 1. Atrial fibrillation/atrial flutter with rapid ventricular response-now in SR 2. Hypotension/shock state, likely septic. 3. History of cardiomyopathy with mildly depressed left ventricular ejection fraction approximately 40% to 45%. 4. History of congestive heart failure, systolic, chronic. 5. Possible pneumonia. 6. Sepsis. 7. Leukocytosis. 8. Anemia requiring transfusions. 9. Hypernatremia. 10. Coagulopathy. 11. Urinary tract infection. 12. Seizures Recc: -Now on med surg -serial ecg's -Continue abx's and f/u cx data -Continue keppra -Continue asa, follow for any bleeding complications -systemic anticoag held due to anemia requiring transfusions Consultation Date/Type/Reason Admit Date/Time Nov 26, 2018 at 20:42 Initial Consult Date 11/27/18 Type of Consult Cardiology Reason for Consultation AF Requesting Provider: NADEEN CHO Date/Time of Note DATE: 12/23/18 TIME: 12:27 Exam/Review of Systems Vital Signs Vitals Vital Signs Date Temp Pulse Resp B/P (MAP) Pulse Ox O2 O2 Flow FiO2 Time Delivery Rate 12/23/18 5.0 09:00 12/23/18 84 18 94 Aerosol 28 08:22 T Tube 12/23/18 98.8 117/56 07:22 (76) Intake and Output 12/22/18 12/22/18 12/23/18 1515:00 23:00 07:00 IntakeIntake Total 100 ml 1180 ml 250 ml OutputOutput Total 600 ml 700 ml BalanceBalance 100 ml 580 ml -450 ml Exam Exam Review of Systems: CONSTITUTIONAL: No fevers, chills. PULMONARY: No obvious sob CARDIOVASCULAR: No obvious chest pain/palpitations GASTROINTESTINAL: No nausea/vomiting. GENITOURINARY: No hematuria/dysuria. MUSCULOSKELETAL: No obvious myagias/arthalgias. PSYCHIATRIC: no documented depression. NEUROLOGIC: encephalopathic Constitutional: other (encephalopathic) Psych: no complaints Head: normocephalic ENMT: mucosa pink and moist Neck: supple, jvd (9 cm water) Respiratory: diminished breath sounds (at bases/B) Cardiovascular: regular rate and rhythm Gastrointestinal: soft, non-tender Musculoskeletal: muscle weakness (generalized) Extremities: edema (trace/B), other (contracted) Neurological: unresponsive Labs Result Diagram: 12/21/18 0447 12/21/18 0447 Results 24hrs Laboratory Tests Test 12/22/18 12:38 12/22/18 17:53 12/22/18 23:40 12/23/18 05:27 Bedside Glucose 142 139 165 167 Test 12/23/18 12:23 Bedside Glucose 141 Medications Medications Current Medications IV Flush (NS 10 ml) 10 ml Q8 IV Last administered on 12/23/18 05:25; Admin Dose 10 ML; Start 11/26/18 at 22:00 Ascorbic Acid (Vitamin C) 500 mg DAILY GTB Last administered on 12/23/18 09:05; Admin Dose 500 MG; Start 11/27/18 at 09:00 Baclofen (Lioresal) 20 mg TID GTB Last administered on 12/23/18 09:05; Admin Dose 20 MG; Start 11/26/18 at 21:00 Cholecalciferol (Vitamin D) 2,000 unit DAILY GTB Last administered on 12/23/18 09:06; Admin Dose 2,000 UNIT; Start 11/27/18 at 09:00 Cyanocobalamin (Vitamin B12) 1,000 mcg DAILY GTB Last administered on 12/23/18 09:06; Admin Dose 1,000 MCG; Start 11/27/18 at 09:00 Miscellaneous Information 1 ea NOTE XX ; Start 11/26/18 at 18:30 Glucose (Glutose) 15 gm Q15M PRN PO DECREASED GLUCOSE; Start 11/26/18 at 18:30 Glucose (Glutose) 22.5 gm Q15M PRN PO DECREASED GLUCOSE; Start 11/26/18 at 18:30 Dextrose (D50w Syringe) 25 ml Q15M PRN IV DECREASED GLUCOSE; Start 11/26/18 at 18:30 Dextrose (D50w Syringe) 50 ml Q15M PRN IV DECREASED GLUCOSE; Start 11/26/18 at 18:30 Glucagon (Glucagen) 1 mg Q15M PRN IM DECREASED GLUCOSE; Start 11/26/18 at 18:30 Glucose (Glutose) 15 gm Q15M PRN BUCCAL DECREASED GLUCOSE; Start 11/26/18 at 18:30 Diagnostic Test (Pha) (Accu-Chek) 1 ea 02 XX Last administered on 5/8/19at 01:49; Admin Dose 1 EA; Start 11/27/18 at 02:00 Lorazepam (Ativan) 1 mg Q2H PRN IV SEIZURES Last administered on 11/29/18 14:39; Admin Dose 1 MG; Start 11/27/18 at 18:00 Aspirin (Aspirin) 81 mg DAILY GTB Last administered on 12/23/18 09:05; Admin Dose 81 MG; Start 11/29/18 at 10:00 Levetiracetam 100 ml @ 400 mls/hr Q12 IVPB Last administered on 12/23/18 09:05; Admin Dose 400 MLS/HR; Start 11/29/18 at 21:00 Acetaminophen (Tylenol Liquid) 650 mg Q4H PRN GTB MILD PAIN(1-3)OR ELEVATED TEMP Last administered on 12/12/18 16:18; Admin Dose 650 MG; Start 12/03/18 at 02:00 Insulin Aspart (Novolog Insulin Pen) NOVOLOG *MILD* ALGORI... Q6 SC Last administered on 12/23/18 05:31; Admin Dose 1 UNIT; Start 12/09/18 at 18:00 Alteplase, Recombinant (Cathflo (Activase)) 2 mg MAY REPEAT X1 PRN CATHETER IF CATHETER REMAINS OCCULUDED Last administered on 12/14/18 21:48; Admin Dose 2 MG; Start 12/09/18 at 23:30 Albuterol/ Ipratropium (Duoneb) 3 ml Q6HWA RESP THERAPY HHN Last administered on 12/23/18 08:20; Admin Dose 3 ML; Start 12/12/18 at 14:00 Albuterol/ Ipratropium (Duoneb) 3 ml Q4H RESP THERAPY PRN HHN SHORTNESS OF BREATH Last administered on 12/15/18 19:48; Admin Dose 3 ML; Start 12/12/18 at 12:30 Ceftazidime 50 ml @ 100 mls/hr Q8 IVPB Last administered on 12/23/18 05:25; Admin Dose 100 MLS/HR; Start 12/12/18 at 18:00 Metronidazole 100 ml @ 100 mls/hr Q8 IVPB Last administered on 12/23/18 06:06; Admin Dose 100 MLS/HR; Start 12/12/18 at 17:00 Collagenase (Santyl) 1 applic DAILY TOP Last administered on 12/23/18at 09:07; Admin Dose 1 APPLIC; Start 12/13/18 at 10:30 Sodium Hypochlorite (Dakins Diluted (/40)) 1 applic BID IRR Last administered on 12/23/18at 09:07; Admin Dose 1 APPLIC; Start 12/17/18 at 22:00 MAITE VAZQUEZ December 23, 2018 12:30
[2018-12-23 14:43] VITALS: BP 99/57; PULSE 94; RESP 18
[2018-12-23] MEDS ORDERED: AMIKACIN IV PER PHARMACY XX SCH (17:30)
[2018-12-23] MEDS ORDERED: VANCOMYCIN IV PER PHARMACY XX SCH (17:30)
--- NOTE | 2018-12-23 18:07 | PN ---
Date/Time of Note Date/Time of Note DATE: 12/23/18 TIME: 18:07 Assessment/Plan VTE Prophylaxis Risk score (from Ns)>0 risk: 8 SCD applied (from Ns): Yes Pharmacological prophylaxis: LMWH Lines/Catheters IV Catheter Type (from Nrsg): PICC Line Central line still needed: Yes Urinary Cath still in place: Yes Reason Cath still needed: urinary retention Assessment/Plan Hospital Course Pt spiked fever 101.3, will obtain urine and blood cultures chest x-ray, continue antibiotics per ID recommendations. Assessment/Plan -Sepsis with Bacteroides fragilis bacteremia and wound infection, continue antibiotics per ID. Dr. Breaux is following in infection disease consultation. -Pseudomonal colonization of respiratory tract -New onset of seizures, continue Keppra. Dr. Sherman is following a neurology consultation. -Atrial fibrillation/ flutter with rapid ventricular response converted to sinus rhythm. Dr. Monson is following in cardiology consultation. 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 Triplett at [facility]. -Right hip wound infection with OM of R hip, completed treatment with antibiotics. -Wound dehiscence, s/p repeat debridement at [facility] on 11/03/2018. -Diabetes -Chronic diastolic CHF -Dysphagia with GT -Anemia of chronic disease -Failure to thrive, Dr. Prieto is following in palliative care consultation. -DNR/DNI status Further recommendations based on clinical course. Plan of care discussed with Dr. Shannon Result Diagram: 12/21/18 0447 12/21/18 044 Results 24hrs Laboratory Tests Test 12/22/18 23:40 12/23/18 05:27 12/23/18 12:23 12/23/18 18:02 Bedside Glucose 165 167 141 145 Exam/Review of Systems Exam Vitals Vital Signs Date Temp Pulse Resp B/P (MAP) Pulse Ox O2 O2 Flow FiO2 Time Delivery Rate 12/23/18 98.4 17:37 12/23/18 94 18 99/57 (71) 95 Trach 14:43 Collar 12/23/18 5.0 28 14:28 Intake and Output 5/12/22/18 12/23/18 1515:00 23:00 07:00 IntakeIntake Total 100 ml 1180 ml 250 ml OutputOutput Total 600 ml 700 ml BalanceBalance 100 ml 580 ml -450 ml Exam Constitutional: non-verbal, frail Neck: other (Tracheostomy) Respiratory: diminished breath sounds Cardiovascular: nl pulse Gastrointestinal: soft, non-tender, other (G-tube) Extremities: other (Contracted) Neurological: unresponsive Skin: other (Sacral and right hip wounds) Results Results 24hrs Laboratory Tests Test 12/22/18 23:40 12/23/18 05:27 12/23/18 12:23 12/23/18 18:02 Bedside Glucose 165 167 141 145 Medications Medication Current Medications IV Flush (NS 10 ml) 10 ml Q8 IV Last administered on 12/23/18 13:29; Admin Dose 10 ML; Start 11/26/18 at 22:00 Ascorbic Acid (Vitamin C) 500 mg DAILY GTB Last administered on 12/23/18 09:05; Admin Dose 500 MG; Start 11/27/18 at 09:00 Baclofen (Lioresal) 20 mg TID GTB Last administered on 12/23/18 13:29; Admin Dose 20 MG; Start 11/26/18 at 21:00 Cholecalciferol (Vitamin D) 2,000 unit DAILY GTB Last administered on 12/23/18 09:06; Admin Dose 2,000 UNIT; Start 11/27/18 at 09:00 Cyanocobalamin (Vitamin B12) 1,000 mcg DAILY GTB Last administered on 12/23/18 09:06; Admin Dose 1,000 MCG; Start 11/27/18 at 09:00 Miscellaneous Information 1 ea NOTE XX ; Start 11/26/18 at 18:30 Glucose (Glutose) 15 gm Q15M PRN PO DECREASED GLUCOSE; Start 11/26/18 at 18:30 Glucose (Glutose) 22.5 gm Q15M PRN PO DECREASED GLUCOSE; Start 11/26/18 at 18:30 Dextrose (D50w Syringe) 25 ml Q15M PRN IV DECREASED GLUCOSE; Start 11/26/18 at 18:30 Dextrose (D50w Syringe) 50 ml Q15M PRN IV DECREASED GLUCOSE; Start 11/26/18 at 18:30 Glucagon (Glucagen) 1 mg Q15M PRN IM DECREASED GLUCOSE; Start 11/26/18 at 18:30 Glucose (Glutose) 15 gm Q15M PRN BUCCAL DECREASED GLUCOSE; Start 11/26/18 at 18:30 Diagnostic Test (Pha) (Accu-Chek) 1 ea 02 XX Last administered on 12/11/18 01:49; Admin Dose 1 EA; Start 11/27/18 at 02:00 Lorazepam (Ativan) 1 mg Q2H PRN IV SEIZURES Last administered on 11/29/18 14:39; Admin Dose 1 MG; Start 11/27/18 at 18:00 Aspirin (Aspirin) 81 mg DAILY GTB Last administered on 12/23/18 09:05; Admin Dose 81 MG; Start 11/29/18 at 10:00 Levetiracetam 100 ml @ 400 mls/hr Q12 IVPB Last administered on 12/23/18 09:05; Admin Dose 400 MLS/HR; Start 11/29/18 at 21:00 Acetaminophen (Tylenol Liquid) 650 mg Q4H PRN GTB MILD PAIN(1-3)OR ELEVATED TE MP Last administered on 12/12/18 16:18; Admin Dose 650 MG; Start 12/03/18 at 02:00 Insulin Aspart (Novolog Insulin Pen) NOVOLOG *MILD* ALGORI... Q6 SC Last administered on 12/23/18 12:27; Admin Dose 1 UNIT; Start 12/09/18 at 18:00 Alteplase, Recombinant (Cathflo (Activase)) 2 mg MAY REPEAT X1 PRN CATHETER IF CATHETER REMAINS OCCULUDED Last administered on 12/14/18 21:48; Admin Dose 2 MG; Start 12/09/18 at 23:30 Albuterol/ Ipratropium (Duoneb) 3 ml Q6HWA RESP THERAPY HHN Last administered on 12/23/18 14:24; Admin Dose 3 ML; Start 12/12/18 at 14:00 Albuterol/ Ipratropium (Duoneb) 3 ml Q4H RESP THERAPY PRN HHN SHORTNESS OF BREATH Last administered on 12/15/18 19:48; Admin Dose 3 ML; Start 12/12/18 at 12:30 Ceftazidime 50 ml @ 100 mls/hr Q8 IVPB Last administered on 12/23/18at 14:59; Admin Dose 100 MLS/HR; Start 12/12/18 at 18:00 Metronidazole 100 ml @ 100 mls/hr Q8 IVPB Last administered on 12/23/18at 13:29; Admin Dose 100 MLS/HR; Start 12/12/18 at 17:00 Collagenase (Santyl) 1 applic DAILY TOP Last administered on 12/23/18at 09:07; Admin Dose 1 APPLIC; Start 12/13/18 at 10:30 Sodium Hypochlorite (Dakins Diluted (40)) 1 applic BID IRR Last administered on 12/23/18at 09:07; Admin Dose 1 APPLIC; Start 12/17/18 at 22:00 Vancomycin HCl (Vanco Iv Per Pharmacy) VANCOMYCIN PER PHARMACY PER PROTOCOL XX ; Start 12/23/18 at 17:30 Amikacin Sulfate (Amikacin Iv Per Pharmacy) AMIKACIN PER PHARMACY NOTE XX ; Start 12/23/18 at 17:30 Vancomycin HCl 1.25 gm/Sodium Chloride 250 ml @ 83.333 mls/ hr NOW IVPB ; Start 12/23/18 at 18:30; Stop 12/23/18 at 23:00 Amikacin Sulfate 500 mg/Sodium Chloride 102 ml @ 102 mls/hr ONCE IVPB ; Start 12/23/18 at 20:00; Stop 12/23/18 at 23:00 LUIZ BRANNON December 23, 2018 18:07
[2018-12-23] MEDS ORDERED: VANCOMYCIN HCL 1.25 GM in SOD CHLORIDE 0.9% 250 ML IVPB SCH (18:30)
[2018-12-23] MEDS ORDERED: AMIKACIN 500 MG in SOD CHLORIDE 0.9% 100 ML IVPB SCH (20:00)
[2018-12-23 20:31] VITALS: BP 104/68; PULSE 98; RESP 18
[2018-12-23] MEDS ORDERED: AMIKACIN IVPB SCH (23:00)
[2018-12-23] MEDS ORDERED: SOD CHLORIDE 0.9% IVPB SCH (23:00)
[2018-12-24 01:34] VITALS: BP 156/78; PULSE 77; RESP 18
[2018-12-24 01:47] VITALS: BP 121/53; PULSE 96; RESP 18
[2018-12-24] MEDS: ACCU-CHEK XX SCH (01:55)
[2018-12-24] MEDS: CEFTAZIDIME 1GM/50 ML (PMX) 50 ML IVPB SCH ×3 (05:10→22:37)
[2018-12-24] MEDS: metroNIDAZOLE 500 MG/NS (PMX) 100 ML IVPB SCH ×3 (05:12→23:31)
[2018-12-24] MEDS: INSULIN ASPART [NOVOLOG] 3 ML PEN SC SCH ×4 (05:21→23:39)
[2018-12-24 07:33] VITALS: BP 172/67; PULSE 79; RESP 18
[2018-12-24] MEDS: ALBUTEROL/IPRATROPIUM (NEB) 3 ML AMP HHN SCH ×3 (07:50→20:20)
[2018-12-24] MEDS: BACLOFEN 10 MG TAB GTB SCH ×3 (09:06→21:59)
[2018-12-24] MEDS: CYANOCOBALAMIN 500 MCG TAB GTB SCH (09:06)
[2018-12-24] MEDS: VANCOMYCIN 750 MG (PMX) 250 ML IVPB SCH ×2 (09:06→20:49)
[2018-12-24] MEDS: ASPIRIN 81 MG TAB GTB SCH (09:07)
[2018-12-24] MEDS: ASCORBIC ACID 500 MG TAB GTB SCH (09:07)
[2018-12-24] MEDS: CHOLECALCIFEROL 2,000 UNIT CAP GTB SCH (09:07)
[2018-12-24] MEDS: BALSAM PERU/CASTOR OIL 60 GM TUBE TOP SCH (09:08)
[2018-12-24] MEDS: DAKINS 0.0125%(1/40) 473 ML SOLUTION IRR SCH ×2 (09:08→22:00)
[2018-12-24] MEDS: COLLAGENASE 5 GM (UD JAR) TOP SCH (09:08)
[2018-12-24] MEDS: LEVETIRACETAM 1000 MG (PMX) 100 ML IVPB SCH ×2 (10:12→21:59)
--- NOTE | 2018-12-24 13:14 | CONS ---
Assessment/Plan Assessment/Plan Hospital Course (Demo Recall) # sepsis, endovascular infection, respiratory - recurrent sepsis due to bacteremia and pneumonia +/- wound infection. Procalcitonin was 1.96 on 12/07/2018 - leukocytosis and fever resolved - bacteremia d/t bacteroides fragilis 12/07/2018 possibly d/t intra-abdominal infection - VAP d/t pseudomonas 12/08/2018 and 12/13/2018 - s/p septic shock due to probable UTI - s/p coag negative Staph in blood cultures on 11/26/2018, probable contaminant - colonization of the airway by pseudomonas and corynebacteria on 11/26/2018; MDR pseudomonas in trach aspirate cx from 12/08/2018 likely a colonizer - h/o sepsis due to bacteremia and pneumonia - h/o bacteremia: blood cultures grew enterococcus faecalis on 09/17/2018 secondary to R hip wound infection as its wound culture on 09/16/2018 grew E. faecalis as well - h/o recurrent acute on chronic hypoxemic respiratory failure secondary to secretion retention, mucous plugging, major left lung atelectasis, severe shunting - h/o probable aspiration pneumonia. - h/o pneumonia due to pseudomonas on 09/30/2018. s/p Levaquin (10/03/18- 10/07/2018), Meropenem (restart 09/30/2018-10/03/18, 10/12/18 - 10/19/2018) and empiric Amikacin (09/30/18-10/03/18) - H/o intubation on 09/30/2018 - H/o tracheostomy on 10/04/2018 - h/o pseudomonas in urine culture on 09/17/2018 with mild pyuria; treated with Cefepime (09/20/2018-09/25/2018) # infection of wound, OM of R hip, pressure ulcer - colonization of the wound of R hip by pseudomonas (wound culture on 10/31/2018), acinetobacter (wound culture on 11/27/2018) - h/o repeat debridement at [facility] on 11/03/[address]. [address] Pierson, her plastic surgeon at [facility], the wound appeared clean during the I&D (my conversation with him on 11/06/2018) - H/o stage sacral decubitus ulcer extending to bilateral buttocks. She reportedly had total hip dislocation and exposed femoral head. CT pelvis showed e/o OM. Pt complete IV vancomycin (09/17/2018-10/29/2018) for sacral OM associated with E. faecalis - H/o sharp excisional debridement down to and including bone of the sacrum on 08/22/2018 and 09/19/2018 - H/o excision of R hip ulcer, girdlestone resection arthroplasty and flap reconstruction 09/23/2018. The surgical pathology showed osteomyelitis of R hip bone, soft tissue cellulitis, and bony margin of excision was free of the diseas e - according to Dr. Pierson who performed the wound debridement, Pt needs wound care until granulation tissue builds and infection is cleared. Then he would decide if Pt should get repeat closure or not - XR of R hip on 11/09/2009 showed the remaining R femoral shaft in transverse orientation and with lateral deviation - h/o removal of devitalized/necrotic tissue by Dr. Pierson on 10/07/2018 # renal/ - funguria, recurrent; Pt completed 3 day course of fluconazole (12/04-12/06/2018). Ramires was changed on 12/04/2018. - hematuria on 11/26/2018 - h/o moderate L hydronephrosis per renal US # heme, neuro - h/o acute on chronic anemia requiring PRBC - chronic metabolic encephalopathy - supranuclear palsy # endo, cardiac - diabetes mellitus - A fib with RVR - chronic diastolic HF (EF 40-45% with grade 1 DD per 2D Echo 10/24/2018) - h/o hypertension # allergy - penicillin allergy (throat swelling) but Pt tolerates cefepime, ceftazidime, meropenem Recommendations: - Procalc on 12.26.18 - F/u with christina cxs - Continue Vancomycin (12/24/18 -) and Amikacin (12/24/18 -) - Continue Ceftazidime (12/12/2018 - ); s/p jose (restart 12/07-12/12/2018) and vancomycin (12/07-12/14/2018)-- through 12.26.18 - Continue Flagyl IV (for possible intra abdominal infection in result of blood cxs +Bacteroides fragilis)- through 12.26.18 - Wound care picts with next change Above plan d/w via First Aid Shot Therapy Consultation Date/Type/Reason Admit Date/Time Nov 26, 2018 at 20:42 Initial Consult Date 11/27/18 Requesting Provider: NADEEN CHO Date/Time of Note DATE: 12/24/18 TIME: 13:14 24 HR Interval Summary Free Text/Dictation Per d/w RN pt has remained afebrile today. Christina cxs - pending Subjective hx not possible: pt non-verbal Detailed Summary Additional Comments Unable to obtain due to chronic encephalopathy. Exam/Review of Systems Exam Vitals Vital Signs Date Temp Pulse Resp B/P (MAP) Pulse Ox O2 O2 Flow FiO2 Time Delivery Rate 12/24/18 5.0 08:20 12/24/18 93 40 07:53 12/24/18 80 20 Aerosol 07:53 T Tube 12/24/18 98.6 172/67 07:33 (102) Intake and Output 12/23/18 12/23/18 12/24/18 1515:00 23:00 07:00 IntakeIntake Total 200 ml 1300 ml 1233.4 ml OutputOutput Total 400 ml 900 ml BalanceBalance 200 ml 900 ml 333.4 ml Exam Constitutional: non-verbal, frail Psych: confusion Head: normocephalic, atraumatic Eyes: nl conjunctiva, nl lids ENMT: nl external ears & nose, nl nasal mucosa & septum, mucosa pink and moist Neck: other (trach site c/d/i) Respiratory: clear to auscultation, normal air movement, on cool aerosol Cardiovascular: regular rate and rhythm, nl pulses. Gastrointestinal: soft, non-tender, other (GT site c/d/i) Genitourinary - Female: other (FC) Musculoskeletal: other (contractured, R hip wound covered with dressing c/d/i); No swelling Extremities: No edema Neurological: lethargic, unresponsive Skin: rash or lesions (+R hip and coccyx wound covered with dressing c/d/i) Neck: other (trach midline site c/d/i) Results Result Diagram: 12/21/18 0447 12/21/187 Results 24hrs Laboratory Tests Test 12/23/18 18:02 12/23/18 18:15 12/23/18 23:52 5/21/19 05:16 Bedside Glucose 145 153 159 Urine Color YELLOW Urine Clarity SLIGHTLY CLOUDY A Urine pH 7.0 Urine Specific 1.018 Bearden Urine Ketones NEGATIVE Urine Nitrite NEGATIVE Urine Bilirubin NEGATIVE Urine NEGATIVE Urobilinogen Urine Leukocyte TRACE A Esterase Urine Microscopic 2 RBC Urine Microscopic 14 H WBC Urine Mucus FEW A Urine Hemoglobin NEGATIVE Urine Glucose NEGATIVE Urine Total NEGATIVE Protein Imaging Imaging PROCEDURE: XR Chest. CLINICAL INDICATION: Pulmonary process not otherwise specified. TECHNIQUE: Portable single view of the chest COMPARISON: 12/18/2018 portable chest FINDINGS: The patient is again contracted, with hand overlying the lower chest bilaterally. Allowing for this, the left diaphragm and retrocardiac region are now obscured, suggesting a combination of atelectasis/infiltrate and small left pleural effusion now present. The right lung and pleural space are stable as is appearance of the interstitial markings, which are mildly prominent throughout. Linear densities which may represent postoperative changes are noted within the right upper lung field. The heart size and mediastinal contours are stable including aortic atherosclerotic calcification. Tracheostomy tube is again present with tip overlying the tracheal air column. Left PIC catheter is unchanged, tip directed slightly inferiorly overlying the region of the SVC or azygos vein. Osseous structures stable. IMPRESSION: New retrocardiac opacity suggesting the presence of atelectasis/infiltrate and small left pleural effusion. The balance of the exam is otherwise unchanged including lines and tubes, as above. RPTAT: [facility]SA[facility] Physician Vianca Date Time Electronically viewed and signed by Physician Vianca on 12/24/2018 11:33 Medications Medication Current Medications IV Flush (NS 10 ml) 10 ml Q8 IV Last administered on 12/24/18at 05:52; Admin Dose 10 ML; Start 11/26/18 at 22:00 Ascorbic Acid (Vitamin C) 500 mg DAILY GTB Last administered on 12/24/18at 09:07; Admin Dose 500 MG; Start 11/27/18 at 09:00 Baclofen (Lioresal) 20 mg TID GTB Last administered on 12/24/18at 09:06; Admin Dose 20 MG; Start 11/26/18 at 21:00 Cholecalciferol (Vitamin D) 2,000 unit DAILY GTB Last administered on 12/24/18 09:07; Admin Dose 2,000 UNIT; Start 11/27/18 at 09:00 Cyanocobalamin (Vitamin B12) 1,000 mcg DAILY GTB Last administered on 12/24/18 09:06; Admin Dose 1,000 MCG; Start 11/27/18 at 09:00 Miscellaneous Information 1 ea NOTE XX ; Start 11/26/18 at 18:30 Glucose (Glutose) 15 gm Q15M PRN PO DECREASED GLUCOSE; Start 11/26/18 at 18:30 Glucose (Glutose) 22.5 gm Q15M PRN PO DECREASED GLUCOSE; Start 11/26/18 at 18:30 Dextrose (D50w Syringe) 25 ml Q15M PRN IV DECREASED GLUCOSE; Start 11/26/18 at 18:30 Dextrose (D50w Syringe) 50 ml Q15M PRN IV DECREASED GLUCOSE; Start 11/26/18 at 18:30 Glucagon (Glucagen) 1 mg Q15M PRN IM DECREASED GLUCOSE; Start 11/26/18 at 18:30 Glucose (Glutose) 15 gm Q15M PRN BUCCAL DECREASED GLUCOSE; Start 11/26/18 at 18:30 Diagnostic Test (Pha) (Accu-Chek) 1 ea 02 XX Last administered on 12/11/18at 01:49; Admin Dose 1 EA; Start 11/27/18 at 02:00 Lorazepam (Ativan) 1 mg Q2H PRN IV SEIZURES Last administered on 11/29/18at 14:39; Admin Dose 1 MG; Start 11/27/18 at 18:00 Aspirin (Aspirin) 81 mg DAILY GTB Last administered on 12/24/18at 09:07; Admin Dose 81 MG; Start 11/29/18 at 10:00 Levetiracetam 100 ml @ 400 mls/hr Q12 IVPB Last administered on 12/24/18at 10:12; Admin Dose 400 MLS/HR; Start 11/29/18 at 21:00 Acetaminophen (Tylenol Liquid) 650 mg Q4H PRN GTB MILD PAIN(1-3)OR ELEVATED TEMP Last administered on 12/12/18 16:18; Admin Dose 650 MG; Start 12/03/18 at 02:00 Insulin Aspart (Novolog Insulin Pen) NOVOLOG *MILD* ALGORI... Q6 SC Last administered on 12/24/18 05:21; Admin Dose 1 UNIT; Start 12/09/18 at 18:00 Alteplase, Recombinant (Cathflo (Activase)) 2 mg MAY REPEAT X1 PRN CATHETER IF CATHETER REMAINS OCCULUDED Last administered on 12/14/18 21:48; Admin Dose 2 MG; Start 12/09/18 at 23:30 Albuterol/ Ipratropium (Duoneb) 3 ml Q6HWA RESP THERAPY HHN Last administered on 12/24/18 07:50; Admin Dose 3 ML; Start 12/12/18 at 14:00 Albuterol/ Ipratropium (Duoneb) 3 ml Q4H RESP THERAPY PRN HHN SHORTNESS OF BREATH Last administered on 12/15/18 19:48; Admin Dose 3 ML; Start 12/12/18 at 12:30 Ceftazidime 50 ml @ 100 mls/hr Q8 IVPB Last administered on 12/24/18 05:10; Admin Dose 100 MLS/HR; Start 12/12/18 at 18:00 Metronidazole 100 ml @ 100 mls/hr Q8 IVPB Last administered on 12/24/18 05:12; Admin Dose 100 MLS/HR; Start 12/12/18 at 17:00 Collagenase (Santyl) 1 applic DAILY TOP Last administered on 12/24/18 09:08; Admin Dose 1 APPLIC; Start 12/13/18 at 10:30 Sodium Hypochlorite (Dakins Diluted (1/40)) 1 applic BID IRR Last administered on 12/24/18 09:08; Admin Dose 1 APPLIC; Start 12/17/18 at 22:00 Vancomycin HCl (Vanco Iv Per Pharmacy) VANCOMYCIN PER PHARMACY PER PROTOCOL XX ; Start 12/23/18 at 17:30 Amikacin Sulfate (Amikacin Iv Per Pharmacy) AMIKACIN PER PHARMACY NOTE XX ; Start 12/23/18 at 17:30 Vancomycin/Sodium Chloride 250 ml @ 125 mls/hr Q12H IVPB Last administered on 12/24/18 09:06; Admin Dose 125 MLS/HR; Start 12/24/18 at 08:00 Amikacin Sulfate 850 mg/Sodium Chloride 103.4 ml @ 102 mls/hr Q24H IVPB Last administered on 12/23/18at 23:24; Admin Dose 102 MLS/HR; Start 12/23/18 at 23:00 Miscellaneous Information (*Rx Drug Level Order Reminder*) 1 0700 ONCE XX ; Start 12/25/18 at 07:00; Stop 12/25/18 at 07:01 AGNES HERNANDEZ NP December 24, 2018 13:14
--- NOTE | 2018-12-24 13:54 | CONS ---
Consult Date/Type/Reason Admit Date/Time Nov 26, 2018 at 20:42 Initial Consult Date 11/27/18 Type of Consultation: Pulm Requesting Provider: NADEEN CHO Date/Time of Note DATE: 12/24/18 TIME: 13:52 Subjective No acute events - BP in good range - rate controlled - con't med med rx- euvolemic now. ROS: NO F/C/N/V/D/C Objective Vitals Vital Signs Date Temp Pulse Resp B/P (MAP) Pulse Ox O2 O2 Flow FiO2 Time Delivery Rate 12/24/18 5.0 08:20 12/24/18 93 40 07:53 12/24/18 80 20 Aerosol 07:53 T Tube 12/24/18 98.6 172/67 07:33 (102) Intake and Output 12/23/18 12/23/18 12/24/18 1515:00 23:00 07:00 IntakeIntake Total 200 ml 1300 ml 1233.4 ml OutputOutput Total 400 ml 900 ml BalanceBalance 200 ml 900 ml 333.4 ml Exam General: WN/WD/NAD, AOx comfortbale HEENT: Unicetric/atraumatic/EOMI (does not follow commands) NECK: tarch Lymph: no lymphadenopathy HEART: regular with no S3, II/ systolic murmur at apex LUNGS: Coarse sounds ABD: soft, NT, ND, +BS - PEG : Intact Neuro: non focal SKIN: chronic changes - contacted EXT: trace edema Results/Medications Result Diagram: 12/21/18 0447 12/21/18446 Results 24 hrs Laboratory Tests Test 12/23/18 18:02 12/23/18 18:15 12/23/18 23:52 12/24/18 05:16 Bedside Glucose 145 153 159 Urine Color YELLOW Urine Clarity SLIGHTLY CLOUDY A Urine pH 7.0 Urine Specific 1.018 [place] Urine Ketones NEGATIVE Urine Nitrite NEGATIVE Urine Bilirubin NEGATIVE Urine NEGATIVE Urobilinogen Urine Leukocyte TRACE A Esterase Urine Microscopic 2 RBC Urine Microscopic 14 H WBC Urine Mucus FEW A Urine Hemoglobin NEGATIVE Urine Glucose NEGATIVE Urine Total NEGATIVE Protein Test 12/24/18 13:40 Bedside Glucose 138 Home Meds Reported Medications Ondansetron Hcl* (Ondansetron Hcl*) 4 Mg Tablet, 4 MG PO Q6H PRN for n/v, TAB 11/26/18 Ascorbic Acid* (Vitamin C*) 500 Mg Capsule.sa, 500 MG GTB DAILY, CAP 11/26/18 Acetaminophen* (Acetaminophen*) 325 Mg Tablet, 650 MG GTB Q4H PRN for PAIN AND OR ELEVATED TEMP, #30 TAB 11/26/18 Sertraline Hcl* (Sertraline Hcl*) 50 Mg Tablet, 50 MG GTB DAILY, #30 TAB 11/26/18 Protein Supplement (Promod) 946 Ml Liquid, 30 ML GTB for supplement 11/26/18 Lansoprazole* (Lansoprazole*) 30 Mg Capsule.dr, 30 MG GTB BID, CAP 11/26/18 Hydrocodone/Acetaminophen (Dearing 5-325 Tablet) 1 Each Tablet, 1 EACH GTB Q4H PRN for PAIN, TAB 11/26/18 Polyethylene Glycol* (Miralax*) 17 Gm Powd.pack, 17 GM GTB BID, #60 PACKET 11/26/18 Metoprolol Tartrate* (Lopressor*) 25 Mg Tab, 25 MG GTB BID, #60 TAB 11/26/18 Lisinopril* (Lisinopril*) 5 Mg Tablet, 5 MG GTB DAILY, #30 TAB 11/26/18 Insulin Aspart* (Novolog Insulin Pen*) 100 Unit/Ml Soln, 0 SC .SLIDING SCALE AC, EA INJECT PER SLIDING SCALE; IF 70-150=0unit; 151-200= 2units; 201-250=4units; 251-300=6units; 301-350=8units; 351-400=10units and Call MD, Subcutaneously before meals and at bedtime fo DM. 11/26/18 Insulin Glargine* (Lantus*) 100 Unit/Ml Soln, 5 UNIT SC QHS, #1 VIAL [id number] SQ AT BEDTIME FOR TYPE 2DIABETES MELLITUS WITHOUT COMPLICATIONS 11/26/18 Levetiracetam* (Keppra*) 500 Mg/5 Ml Solution, 100 MG GTB BID for SEIZURE for 30 Days, BOTTLE 11/26/18 Ipratropium-Albuterol (Ipratropium-Albuterol) 0.5-3 Mg/3 Ml Ampul.neb, 3 ML INHALATION Q6, #30 VIAL 11/26/18 Ferrous Sulfate* (Ferrous Sulfate*) 220 Mg/5 Ml Solution, 330 MG PO BID, ML 11/26/18 Epoetin Haroon (Epogen) 10,000 Units/Ml Soln, 84535 UNITS SC QWED for ANEMIA, VIAL 11/26/18 Cyanocobalamin* (Vitamin B-12*) 1,000 Mcg Tablet.sa, 1000 MCG GTB DAILY, TAB 11/26/18 Clonazepam* (Clonazepam*) 0.5 Mg Tablet, 0.5 MG GTB BID, TAB 11/26/18 Cholecalciferol (Vitamin D3) (VITAMIN D-3) 2,000 Unit Capsule, 2000 UNIT GTB DAILY, CAP 11/26/18 Baclofen* (Baclofen*) 10 Mg Tablet, 20 MG GTB TID for MUSCLE SPASM, TAB 11/26/18 Aspirin* (Aspirin* EC) 81 Mg Tablet.dr, 81 MG GTB DAILY, TAB 11/26/18 Amiodarone Hcl* (Amiodarone Hcl*) 200 Mg Tablet, 200 MG GTB BID for ARRHYTMIA, #60 TAB 11/26/18 Zolpidem Tartrate* (Zolpidem Tartrate*) 5 Mg Tablet, 5 MG GTB QHS PRN for INSOMNIA, #30 TAB 11/26/18 Acidophilus-Bulgaricus* (BD Lactinex*) 1 Pkt Packet, 1 PKT GTB BID, PACKET 11/26/18 Zinc Sulfate* (Zinc Sulfate*) 220 Mg Tablet, 220 MG GTB DAILY for 30 Days, #30 TAKE 1 CAPSULE VIA G-TUBE EVERY DAY 11/26/18 Estrogens Conjugated* (Premarin*) 0.45 Mg Tablet, 1.5 MG PO DAILY 02/18/13 Medications Current Medications IV Flush (NS 10 ml) 10 ml Q8 IV Last administered on 12/24/18at 05:52; Admin Dose 10 ML; Start 11/26/18 at 22:00 Ascorbic Acid (Vitamin C) 500 mg DAILY GTB Last administered on 12/24/18at 09:07; Admin Dose 500 MG; Start 11/27/18 at 09:00 Baclofen (Lioresal) 20 mg TID GTB Last administered on 12/24/18at 09:06; Admin Dose 20 MG; Start 11/26/18 at 21:00 Cholecalciferol (Vitamin D) 2,000 unit DAILY GTB Last administered on 12/24/18 09:07; Admin Dose 2,000 UNIT; Start 11/27/18 at 09:00 Cyanocobalamin (Vitamin B12) 1,000 mcg DAILY GTB Last administered on 12/24/18 09:06; Admin Dose 1,000 MCG; Start 11/27/18 at 09:00 Miscellaneous Information 1 ea NOTE XX ; Start 11/26/18 at 18:30 Glucose (Glutose) 15 gm Q15M PRN PO DECREASED GLUCOSE; Start 11/26/18 at 18:30 Glucose (Glutose) 22.5 gm Q15M PRN PO DECREASED GLUCOSE; Start 11/26/18 at 18:30 Dextrose (D50w Syringe) 25 ml Q15M PRN IV DECREASED GLUCOSE; Start 11/26/18 at 18:30 Dextrose (D50w Syringe) 50 ml Q15M PRN IV DECREASED GLUCOSE; Start 11/26/18 at 18:30 Glucagon (Glucagen) 1 mg Q15M PRN IM DECREASED GLUCOSE; Start 11/26/18 at 18:30 Glucose (Glutose) 15 gm Q15M PRN BUCCAL DECREASED GLUCOSE; Start 11/26/18 at 18:30 Diagnostic Test (Pha) (Accu-Chek) 1 ea 02 XX Last administered on 12/11/18at 01:4 9; Admin Dose 1 EA; Start 11/27/18 at 02:00 Lorazepam (Ativan) 1 mg Q2H PRN IV SEIZURES Last administered on 11/29/18at 14:39; Admin Dose 1 MG; Start 11/27/18 at 18:00 Aspirin (Aspirin) 81 mg DAILY GTB Last administered on 12/24/18at 09:07; Admin Dose 81 MG; Start 11/29/18 at 10:00 Levetiracetam 100 ml @ 400 mls/hr Q12 IVPB Last administered on 12/24/18at 10:12; Admin Dose 400 MLS/HR; Start 11/29/18 at 21:00 Acetaminophen (Tylenol Liquid) 650 mg Q4H PRN GTB MILD PAIN(1-3)OR ELEVATED TEMP Last administered on 12/12/18at 16:18; Admin Dose 650 MG; Start 12/03/18 at 02:00 Insulin Aspart (Novolog Insulin Pen) NOVOLOG *MILD* ALGORI... Q6 SC Last administered on 12/24/18 05:21; Admin Dose 1 UNIT; Start 12/09/18 at 18:00 Alteplase, Recombinant (Cathflo (Activase)) 2 mg MAY REPEAT X1 PRN CATHETER IF CATHETER REMAINS OCCULUDED Last administered on 12/14/18 21:48; Admin Dose 2 MG; Start 12/09/18 at 23:30 Albuterol/ Ipratropium (Duoneb) 3 ml Q6HWA RESP THERAPY HHN Last administered on 12/24/18 07:50; Admin Dose 3 ML; Start 12/12/18 at 14:00 Albuterol/ Ipratropium (Duoneb) 3 ml Q4H RESP THERAPY PRN HHN SHORTNESS OF BREATH Last administered on 12/15/18 19:48; Admin Dose 3 ML; Start 12/12/18 at 12:30 Ceftazidime 50 ml @ 100 mls/hr Q8 IVPB Last administered on 12/24/18 05:10; Admin Dose 100 MLS/HR; Start 12/12/18 at 18:00 Metronidazole 100 ml @ 100 mls/hr Q8 IVPB Last administered on 12/24/18 05:12; Admin Dose 100 MLS/HR; Start 12/12/18 at 17:00 Collagenase (Santyl) 1 applic DAILY TOP Last administered on 12/24/18 09:08; Admin Dose 1 APPLIC; Start 12/13/18 at 10:30 Sodium Hypochlorite (Dakins Diluted (1/40)) 1 applic BID IRR Last administered on 12/24/18 09:08; Admin Dose 1 APPLIC; Start 12/17/18 at 22:00 Vancomycin HCl (Vanco Iv Per Pharmacy) VANCOMYCIN PER PHARMACY PER PROTOCOL XX ; Start 12/23/18 at 17:30 Amikacin Sulfate (Amikacin Iv Per Pharmacy) AMIKACIN PER PHARMACY NOTE XX ; Start 12/23/18 at 17:30 Vancomycin/Sodium Chloride 250 ml @ 125 mls/hr Q12H IVPB Last administered on 12/24/18 09:06; Admin Dose 125 MLS/HR; Start 12/24/18 at 08:00 Amikacin Sulfate 850 mg/Sodium Chloride 103.4 ml @ 102 mls/hr Q24H IVPB Last administered on 12/23/18at 23:24; Admin Dose 102 MLS/HR; Start 12/23/18 at 23:00 Miscellaneous Information (*Rx Drug Level Order Reminder*) 1 0700 ONCE XX ; Start 12/25/18 at 07:00; Stop 12/25/18 at 07:01 Assessment/Plan Hospital Course (Demo Recall) 1. Atrial fibrillation/atrial flutter with rapid ventricular response - now in SR - treated - will follow. Remains in sinus now. RATE CONTROLLED. Off tele now. Stable by exam. In sinus. 2. Hypotension/shock state, likely septic - better now. .BP well controlled now. In good range now. BP better. Much better. BP maintained. BP well controlled. 3. History of cardiomyopathy with mildly depressed left ventricular ejection fraction approximately 40% to 45%. Keep euvolemic. Chronic. NO intervention needed. No ICD indicated. 4. History of congestive heart failure, systolic, chronic. 5. Possible pneumonia - on meds, con't anti-bx. NO new fevers. Treated. 6. Sepsis- treated, better now -no fevers. Imprved. WBC in range. On therapy now. 7. Leukocytosis. 8. Anemia requiring transfusions- no active bleed now. Treated. H/H stable. 9. Hypernatremia. 10. Coagulopathy. 11. Urinary tract infection. 12.. Malnutrition - feeds at goal. ZAHIRA RAJAN MD December 24, 2018 13:54
[2018-12-24 14:12] VITALS: BP 105/57; PULSE 95; RESP 17
--- NOTE | 2018-12-24 19:29 | PN ---
Date/Time of Note Date/Time of Note DATE: 12/24/18 TIME: 19:26 Assessment/Plan VTE Prophylaxis Risk score (from Ns)>0 risk: 4 SCD applied (from Ns): Yes Pharmacological prophylaxis: LMWH Lines/Catheters IV Catheter Type (from Nrsg): PICC Line Central line still needed: Yes Urinary Cath still in place: Yes Reason Cath still needed: urinary retention Assessment/Plan Hospital Course Patient had episodes of decreased also oxygen saturation with improved after suctioning patient has increased amount of secretion, will obtain chest x-ray, c ontinue tracheostomy care pulmonary toilet, antibiotics per ID. Assessment/Plan -Possible HCAP. Continue antibiotics per ID. Dr. Breaux is following in infection disease consultation. -Sepsis with Bacteroides fragilis bacteremia and wound infection. -Pseudomonal colonization of respiratory tract -New onset of seizures, continue Keppra. Dr. Sherman is following a neurology consultation. -Atrial fibrillation/ flutter with rapid ventricular response converted to sinus rhythm. Dr. Monson is following in cardiology consultation. 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 Triplett at [facility]. -Right hip wound infection with OM of R hip, completed treatment with antibiotics. -Wound dehiscence, s/p repeat debridement at [facility] on 11/03/2018. -Diabetes -Chronic diastolic CHF -Dysphagia with GT -Anemia of chronic disease -Failure to thrive, Dr. Prieto is following in palliative care consultation. -DNR/DNI status Further recommendations based on clinical course. Plan of care discussed with Dr. Shannon Result Diagram: 12/21/18 0447 12/21/18446 Results 24hrs Laboratory Tests Test 12/23/18 23:52 12/24/18 05:16 12/24/18 13:40 12/24/18 17:44 Bedside Glucose 153 159 138 151 Exam/Review of Systems Exam Vitals Vital Signs Date Temp Pulse Resp B/P (MAP) Pulse Ox O2 O2 Flow FiO2 Time Delivery Rate 12/24/18 86 18 92 Aerosol 10.0 40 14:25 T Tube 12/24/18 100.3 105/57 14:12 (73) Intake and Output 12/23/18 12/23/18 12/24/18 1515:00 23:00 07:00 IntakeIntake Total 200 ml 1300 ml 1233.4 ml OutputOutput Total 400 ml 900 ml BalanceBalance 200 ml 900 ml 333.4 ml Exam Constitutional: non-verbal, frail Neck: other (Tracheostomy) Respiratory: diminished breath sounds Cardiovascular: nl pulse Gastrointestinal: soft, non-tender, other (G-tube) Extremities: other (Contracted) Neurological: unresponsive Skin: other (Sacral and right hip wounds) Results Results 24hrs Laboratory Tests Test 12/23/18 23:52 12/24/18 05:16 12/24/18 13:40 12/24/18 17:44 Bedside Glucose 153 159 138 151 Medications Medication Current Medications IV Flush (NS 10 ml) 10 ml Q8 IV Last administered on 12/24/18at 14:19; Admin Dose 10 ML; Start 11/26/18 at 22:00 Ascorbic Acid (Vitamin C) 500 mg DAILY GTB Last administered on 12/24/18at 09:07; Admin Dose 500 MG; Start 11/27/18 at 09:00 Baclofen (Lioresal) 20 mg TID GTB Last administered on 12/24/18at 14:19; Admin Dose 20 MG; Start 11/26/18 at 21:00 Cholecalciferol (Vitamin D) 2,000 unit DAILY GTB Last administered on 12/24/18at 09:07; Admin Dose 2,000 UNIT; Start 11/27/18 at 09:00 Cyanocobalamin (Vitamin B12) 1,000 mcg DAILY GTB Last administered on 12/24/18at 09:06; Admin Dose 1,000 MCG; Start 11/27/18 at 09:00 Miscellaneous Information 1 ea NOTE XX ; Start 11/26/18 at 18:30 Glucose (Glutose) 15 gm Q15M PRN PO DECREASED GLUCOSE; Start 11/26/18 at 18:30 Glucose (Glutose) 22.5 gm Q15M PRN PO DECREASED GLUCOSE; Start 11/26/18 at 18 :30 Dextrose (D50w Syringe) 25 ml Q15M PRN IV DECREASED GLUCOSE; Start 11/26/18 at 18:30 Dextrose (D50w Syringe) 50 ml Q15M PRN IV DECREASED GLUCOSE; Start 11/26/18 at 18:30 Glucagon (Glucagen) 1 mg Q15M PRN IM DECREASED GLUCOSE; Start 11/26/18 at 18:30 Glucose (Glutose) 15 gm Q15M PRN BUCCAL DECREASED GLUCOSE; Start 11/26/18 at 18:30 Diagnostic Test (Pha) (Accu-Chek) 1 ea 02 XX Last administered on 12/11/18 01:49; Admin Dose 1 EA; Start 11/27/18 at 02:00 Lorazepam (Ativan) 1 mg Q2H PRN IV SEIZURES Last administered on 11/29/18 14:39; Admin Dose 1 MG; Start 11/27/18 at 18:00 Aspirin (Aspirin) 81 mg DAILY GTB Last administered on 12/24/18 09:07; Admin Dose 81 MG; Start 11/29/18 at 10:00 Levetiracetam 100 ml @ 400 mls/hr Q12 IVPB Last administered on 12/24/18 10:12; Admin Dose 400 MLS/HR; Start 11/29/18 at 21:00 Acetaminophen (Tylenol Liquid) 650 mg Q4H PRN GTB MILD PAIN(1-3)OR ELEVATED TEMP Last administered on 12/12/18 16:18; Admin Dose 650 MG; Start 12/03/18 at 02:00 Insulin Aspart (Novolog Insulin Pen) NOVOLOG *MILD* ALGORI... Q6 SC Last administered on 12/24/18 17:47; Admin Dose 1 UNIT; Start 12/09/18 at 18:00 Alteplase, Recombinant (Cathflo (Activase)) 2 mg MAY REPEAT X1 PRN CATHETER IF CATHETER REMAINS OCCULUDED Last administered on 12/14/18 21:48; Admin Dose 2 MG; Start 12/09/18 at 23:30 Albuterol/ Ipratropium (Duoneb) 3 ml Q6HWA RESP THERAPY HHN Last administered on 12/24/18 14:25; Admin Dose 3 ML; Start 12/12/18 at 14:00 Albuterol/ Ipratropium (Duoneb) 3 ml Q4H RESP THERAPY PRN HHN SHORTNESS OF BREATH Last administered on 12/15/18 19:48; Admin Dose 3 ML; Start 12/12/18 at 12:30 Ceftazidime 50 ml @ 100 mls/hr Q8 IVPB Last administered on 12/24/18at 14:19; Admin Dose 100 MLS/HR; Start 12/12/18 at 18:00 Metronidazole 100 ml @ 100 mls/hr Q8 IVPB Last administered on 12/24/18at 14:19; Admin Dose 100 MLS/HR; Start 12/12/18 at 17:00 Collagenase (Santyl) 1 applic DAILY TOP Last administered on 12/24/18at 09:08; Admin Dose 1 APPLIC; Start 12/13/18 at 10:30 Sodium Hypochlorite (Dakins Diluted ()) 1 applic BID IRR Last administered on 12/24/18 09:08; Admin Dose 1 APPLIC; Start 12/17/18 at 22:00 Vancomycin HCl (Vanco Iv Per Pharmacy) VANCOMYCIN PER PHARMACY PER PROTOCOL XX ; Start 12/23/18 at 17:30 Amikacin Sulfate (Amikacin Iv Per Pharmacy) AMIKACIN PER PHARMACY NOTE XX ; Start 12/23/18 at 17:30 Vancomycin/Sodium Chloride 250 ml @ 125 mls/hr Q12H IVPB Last administered on 12/24/18at 09:06; Admin Dose 125 MLS/HR; Start 12/24/18 at 08:00 Miscellaneous Information (*Rx Drug Level Order Reminder*) 1 0700 ONCE XX ; Start 12/25/18 at 07:00; Stop 12/25/18 at 07:01 Amikacin Sulfate 850 mg/Sodium Chloride 103.4 ml @ 102 mls/hr Q36H IVPB ; Start 12/25/18 at 11:30 LUIZ BRANNON December 24, 2018 19:29
[2018-12-24 19:47] VITALS: BP 103/53; PULSE 95; RESP 18
[2018-12-25] MEDS: ACCU-CHEK XX SCH (01:37)
[2018-12-25 02:00] VITALS: BP 126/61; PULSE 92; RESP 18
[2018-12-25] MEDS: CEFTAZIDIME 1GM/50 ML (PMX) 50 ML IVPB SCH ×3 (05:43→21:47)
[2018-12-25] MEDS: INSULIN ASPART [NOVOLOG] 3 ML PEN SC SCH ×4 (06:00→23:54)
[2018-12-25] MEDS: metroNIDAZOLE 500 MG/NS (PMX) 100 ML IVPB SCH ×3 (06:16→22:57)
[2018-12-25 08:01] VITALS: BP 116/58; PULSE 63; RESP 18
[2018-12-25] MEDS: LEVETIRACETAM 1000 MG (PMX) 100 ML IVPB SCH ×2 (08:06→20:58)
[2018-12-25] MEDS: COLLAGENASE 5 GM (UD JAR) TOP SCH (08:06)
[2018-12-25] MEDS: BACLOFEN 10 MG TAB GTB SCH ×3 (08:07→20:57)
[2018-12-25] MEDS: CYANOCOBALAMIN 500 MCG TAB GTB SCH (08:07)
[2018-12-25] MEDS: DAKINS 0.0125%(1/40) 473 ML SOLUTION IRR SCH ×2 (08:07→20:58)
[2018-12-25] MEDS: CHOLECALCIFEROL 2,000 UNIT CAP GTB SCH (08:07)
[2018-12-25] MEDS: ASCORBIC ACID 500 MG TAB GTB SCH (08:07)
[2018-12-25] MEDS: ASPIRIN 81 MG TAB GTB SCH (08:07)
[2018-12-25] MEDS: BALSAM PERU/CASTOR OIL 60 GM TUBE TOP SCH (08:08)
[2018-12-25] MEDS: ALBUTEROL/IPRATROPIUM (NEB) 3 ML AMP HHN SCH ×3 (08:40→19:27)
--- NOTE | 2018-12-25 09:22 | CONS ---
Assessment/Plan Assessment/Plan Hospital Course (Demo Recall) # sepsis, endovascular infection, respiratory - recurrent sepsis due to bacteremia and pneumonia +/- wound infection. Procalcitonin was 1.96 on 12/07/2018 - leukocytosis and fever resolved - bacteremia d/t bacteroides fragilis 12/07/2018 possibly d/t intra-abdominal infection - VAP d/t pseudomonas 12/08/2018 and 12/13/2018 - s/p septic shock due to probable UTI - s/p coag negative Staph in blood cultures on 11/26/2018, probable contaminant - colonization of the airway by pseudomonas and corynebacteria on 11/26/2018; MDR pseudomonas in trach aspirate cx from 12/08/2018 likely a colonizer - h/o sepsis due to bacteremia and pneumonia - h/o bacteremia: blood cultures grew enterococcus faecalis on 09/17/2018 secondary to R hip wound infection as its wound culture on 09/16/2018 grew E. faecalis as well - h/o recurrent acute on chronic hypoxemic respiratory failure secondary to secretion retention, mucous plugging, major left lung atelectasis, severe shunting - h/o probable aspiration pneumonia. - h/o pneumonia due to pseudomonas on 09/30/2018. s/p Levaquin (10/03/18- 10/07/2018), Meropenem (restart 09/30/2018-10/03/18, 10/12/18 - 10/19/2018) and empiric Amikacin (09/30/18-10/03/18) - H/o intubation on 09/30/2018 - H/o tracheostomy on 10/04/2018 - h/o pseudomonas in urine culture on 09/17/2018 with mild pyuria; treated with Cefepime (09/20/2018-09/25/2018) # infection of wound, OM of R hip, pressure ulcer - colonization of the wound of R hip by pseudomonas (wound culture on 10/31/2018), acinetobacter (wound culture on 11/27/2018) - h/o repeat debridement at [facility] on 11/03/[address]. [address] Pierson, her plastic surgeon at [facility], the wound appeared clean during the I&D (my conversation with him on 11/06/2018) - H/o stage sacral decubitus ulcer extending to bilateral buttocks. She reportedly had total hip dislocation and exposed femoral head. CT pelvis showed e/o OM. Pt complete IV vancomycin (09/17/2018-10/29/2018) for sacral OM associated with E. faecalis - H/o sharp excisional debridement down to and including bone of the sacrum on 08/22/2018 and 09/19/2018 - H/o excision of R hip ulcer, girdlestone resection arthroplasty and flap reconstruction 09/23/2018. The surgical pathology showed osteomyelitis of R hip bone, soft tissue cellulitis, and bony margin of excision was free of the diseas e - according to Dr. Pierson who performed the wound debridement, Pt needs wound care until granulation tissue builds and infection is cleared. Then he would decide if Pt should get repeat closure or not - XR of R hip on 11/09/2009 showed the remaining R femoral shaft in transverse orientation and with lateral deviation - h/o removal of devitalized/necrotic tissue by Dr. Pierson on 10/07/2018 # renal/ - funguria, recurrent; Pt completed 3 day course of fluconazole (12/04-12/06/2018). Ramires was changed on 12/04/2018. - hematuria on 11/26/2018 - h/o moderate L hydronephrosis per renal US # heme, neuro - h/o acute on chronic anemia requiring PRBC - chronic metabolic encephalopathy - supranuclear palsy # endo, cardiac - diabetes mellitus - A fib with RVR - chronic diastolic HF (EF 40-45% with grade 1 DD per 2D Echo 10/24/2018) - h/o hypertension # allergy - penicillin allergy (throat swelling) but Pt tolerates cefepime, ceftazidime, meropenem Recommendations: - family decision regarding hospice - Procalc on 12.26.18 - F/u with christina cxs - Continue Vancomycin (12/24/18 -) and Amikacin (12/24/18 -) - Continue Ceftazidime (12/12/2018 - ); s/p jose (restart 12/07-12/12/2018) and vancomycin (12/07-12/14/2018)-- through 12.26.18 - Continue Flagyl IV (for possible intra abdominal infection in result of blood cxs +Bacteroides fragilis)- through 5.23.19 - Wound care picts with next change Consultation Date/Type/Reason Admit Date/Time Nov 26, 2018 at 20:42 Initial Consult Date 11/27/18 Requesting Provider: NADEEN CHO Date/Time of Note DATE: 12/25/18 TIME: 09:21 Exam/Review of Systems Exam Vitals Vital Signs Date Temp Pulse Resp B/P (MAP) Pulse Ox O2 O2 Flow FiO2 Time Delivery Rate 12/25/18 67 18 95 T Tube 10.0 40 08:41 12/25/18 98.4 116/58 08:01 (77) Intake and Output 12/24/18 12/24/18 12/25/18 1515:00 23:00 07:00 IntakeIntake Total 350 ml 200 ml OutputOutput Total 1000 ml 950 ml BalanceBalance -650 ml -750 ml Constitutional: alert, oriented, well developed Psych: no complaints, nl mood/affect Eyes: nl conjunctiva, EOMI, nl lids, nl sclera, PERRL Neck: supple, non-tender Respiratory: clear to auscultation, normal air movement Cardiovascular: regular rate and rhythm, nl pulses Gastrointestinal: soft, nl liver, spleen, non-tender Neurological: [employer] II-XII intact, nl mental status, nl speech, nl strength Results Result Diagram: 12/25/18 0744 12/25/18 0744 Results 24hrs Laboratory Tests Test 12/24/18 13:40 12/24/18 17:44 12/24/18 23:37 12/25/18 06:19 Bedside Glucose 138 151 199 135 Test 12/25/18 07:44 White Blood Count 8.4 Red Blood Count 2.91 L Hemoglobin 7.6 L Hematocrit 24.8 L Mean Corpuscular 85.2 Volume Mean Corpuscular 26.1 L Hemoglobin Mean Corpuscular 30.6 L Hemoglobin Concent Red Cell 19.2 H Distribution Width Platelet Count 423 #H Mean Platelet Volume 10.4 Immature 0.500 H Granulocytes % Neutrophils % 73.0 Lymphocytes % 17.8 Monocytes % 5.4 Eosinophils % 2.5 Basophils % 0.8 Nucleated Red Blood 0.0 Cells % Immature 0.040 H Granulocytes # Neutrophils # 6.1 Lymphocytes # 1.5 Monocytes # 0.5 Eosinophils # 0.2 Basophils # 0.1 Nucleated Red Blood 0.0 Cells # Sodium Level 139 Potassium Level 4.4 Chloride Level 111 H Carbon Dioxide Level 25 Anion Gap 3 L Blood Urea Nitrogen 15 Creatinine 0.30 L Est Glomerular Filtrat Rate mL/min Glucose Level 144 Calcium Level 8.3 L Vancomycin Level 10.1 Trough Medications Medication Current Medications IV Flush (NS 10 ml) 10 ml Q8 IV Last administered on 12/25/18 05:43; Admin Dose 10 ML; Start 11/26/18 at 22:00 Ascorbic Acid (Vitamin C) 500 mg DAILY GTB Last administered on 12/25/18 08:07; Admin Dose 500 MG; Start 11/27/18 at 09:00 Baclofen (Lioresal) 20 mg TID GTB Last administered on 12/25/18 08:07; Admin Dose 20 MG; Start 11/26/18 at 21:00 Cholecalciferol (Vitamin D) 2,000 unit DAILY GTB Last administered on 12/25/18 08:07; Admin Dose 2,000 UNIT; Start 11/27/18 at 09:00 Cyanocobalamin (Vitamin B12) 1,000 mcg DAILY GTB Last administered on 12/25/18 08:07; Admin Dose 1,000 MCG; Start 11/27/18 at 09:00 Miscellaneous Information 1 ea NOTE XX ; Start 11/26/18 at 18:30 Glucose (Glutose) 15 gm Q15M PRN PO DECREASED GLUCOSE; Start 11/26/18 at 18:30 Glucose (Glutose) 22.5 gm Q15M PRN PO DECREASED GLUCOSE; Start 11/26/18 at 18:30 Dextrose (D50w Syringe) 25 ml Q15M PRN IV DECREASED GLUCOSE; Start 11/26/18 at 18:30 Dextrose (D50w Syringe) 50 ml Q15M PRN IV DECREASED GLUCOSE; Start 11/26/18 at 18:30 Glucagon (Glucagen) 1 mg Q15M PRN IM DECREASED GLUCOSE; Start 11/26/18 at 18:30 Glucose (Glutose) 15 gm Q15M PRN BUCCAL DECREASED GLUCOSE; Start 11/26/18 at 18:30 Diagnostic Test (Pha) (Accu-Chek) 1 ea 02 XX Last administered on 12/11/18at 01:49; Admin Dose 1 EA; Start 11/27/18 at 02:00 Lorazepam (Ativan) 1 mg Q2H PRN IV SEIZURES Last administered on 11/29/18 14:39; Admin Dose 1 MG; Start 11/27/18 at 18:00 Aspirin (Aspirin) 81 mg DAILY GTB Last administered on 12/25/18 08:07; Admin Dose 81 MG; Start 11/29/18 at 10:00 Levetiracetam 100 ml @ 400 mls/hr Q12 IVPB Last administered on 12/25/18 08:06; Admin Dose 400 MLS/HR; Start 11/29/18 at 21:00 Acetaminophen (Tylenol Liquid) 650 mg Q4H PRN GTB MILD PAIN(1-3)OR ELEVATED TEMP Last administered on 12/12/18 16:18; Admin Dose 650 MG; Start 12/03/18 at 02:00 Insulin Aspart (Novolog Insulin Pen) NOVOLOG *MILD* ALGORI... Q6 SC Last administered on 12/24/18 23:39; Admin Dose 2 UNIT; Start 12/09/18 at 18:00 Alteplase, Recombinant (Cathflo (Activase)) 2 mg MAY REPEAT X1 PRN CATHETER IF CATHETER REMAINS OCCULUDED Last administered on 12/14/18 21:48; Admin Dose 2 MG; Start 12/09/18 at 23:30 Albuterol/ Ipratropium (Duoneb) 3 ml Q6HWA RESP THERAPY HHN Last administered on 12/25/18 08:40; Admin Dose 3 ML; Start 12/12/18 at 14:00 Albuterol/ Ipratropium (Duoneb) 3 ml Q4H RESP THERAPY PRN HHN SHORTNESS OF BREATH Last administered on 12/15/18 19:48; Admin Dose 3 ML; Start 12/12/18 at 12:30 Ceftazidime 50 ml @ 100 mls/hr Q8 IVPB Last administered on 12/25/18 05:43; Admin Dose 100 MLS/HR; Start 12/12/18 at 18:00 Metronidazole 100 ml @ 100 mls/hr Q8 IVPB Last administered on 12/25/18 06:16; Admin Dose 100 MLS/HR; Start 12/12/18 at 17:00 Collagenase (Santyl) 1 applic DAILY TOP Last administered on 12/25/18 08:06; Admin Dose 1 APPLIC; Start 12/13/18 at 10:30 Sodium Hypochlorite (Dakins Diluted ()) 1 applic BID IRR Last administered on 12/25/18at 08:07; Admin Dose 1 APPLIC; Start 12/17/18 at 22:00 Vancomycin HCl (Vanco Iv Per Pharmacy) VANCOMYCIN PER PHARMACY PER PROTOCOL XX ; Start 12/23/18 at 17:30 Amikacin Sulfate (Amikacin Iv Per Pharmacy) AMIKACIN PER PHARMACY NOTE XX ; Start 12/23/18 at 17:30 Vancomycin/Sodium Chloride 250 ml @ 125 mls/hr Q12H IVPB Last administered on 12/24/18at 20:49; Admin Dose 125 MLS/HR; Start 12/24/18 at 08:00 Amikacin Sulfate 850 mg/Sodium Chloride 103.4 ml @ 102 mls/hr Q36H IVPB ; Start 12/25/18 at 11:30 KASH MONDRAGON MD December 25, 2018 09:22
[2018-12-25] MEDS: VANCOMYCIN 750 MG (PMX) 250 ML IVPB SCH ×2 (09:40→19:48)
[2018-12-25] MEDS: SOD CHLORIDE 0.9% IVPB SCH (11:31)
[2018-12-25] MEDS: AMIKACIN IVPB SCH (11:31)
[2018-12-25 13:13] VITALS: BP 104/59; PULSE 101; RESP 18
--- NOTE | 2018-12-25 13:45 | CONS ---
Assessment/Plan Assessment/Plan Hospital Course (Demo Recall) IMPRESSION: 1. Atrial fibrillation/atrial flutter with rapid ventricular response-now in SR 2. Hypotension/shock state, likely septic. 3. History of cardiomyopathy with mildly depressed left ventricular ejection fraction approximately 40% to 45%. 4. History of congestive heart failure, systolic, chronic. 5. Possible pneumonia. 6. Sepsis. 7. Leukocytosis. 8. Anemia requiring transfusions. 9. Hypernatremia. 10. Coagulopathy. 11. Urinary tract infection. 12. Seizures Recc: -Now on med surg -serial ecg's -Continue abx's and f/u cx data -Continue keppra -Continue asa, follow for any bleeding complications -systemic anticoag held due to anemia requiring transfusions Consultation Date/Type/Reason Admit Date/Time Nov 26, 2018 at 20:42 Initial Consult Date 11/27/18 Type of Consult Cardiology Reason for Consultation AF Requesting Provider: NADEEN CHO Date/Time of Note DATE: 12/25/18 TIME: 13:43 Exam/Review of Systems Vital Signs Vitals Vital Signs Date Temp Pulse Resp B/P (MAP) Pulse Ox O2 O2 Flow FiO2 Time Delivery Rate 12/25/18 99.1 101 18 104/59 96 13:13 (74) 12/25/18 T Tube 10.0 40 08:41 Intake and Output 12/24/18 12/24/18 12/25/18 1515:00 23:00 07:00 IntakeIntake Total 350 ml 200 ml OutputOutput Total 1000 ml 950 ml BalanceBalance -650 ml -750 ml Exam Exam Review of Systems: CONSTITUTIONAL: No fevers, chills. PULMONARY: No sob CARDIOVASCULAR: No chest pain/palpitations GASTROINTESTINAL: No nausea/vomiting. GENITOURINARY: No hematuria/dysuria. MUSCULOSKELETAL: No myagias/arthalgias. PSYCHIATRIC: The patient denies depression. NEUROLOGIC: encephalopathic Constitutional: other (nonresponsive) Psych: no complaints Head: normocephalic ENMT: mucosa pink and moist Neck: supple, jvd (9 cm water), other (trached) Respiratory: diminished breath sounds Cardiovascular: regular rate and rhythm Gastrointestinal: soft, non-tender Musculoskeletal: muscle weakness Extremities: edema (none) Neurological: unresponsive Labs Result Diagram: 12/25/1844 12/25/18 0744 Results 24hrs Laboratory Tests Test 12/24/18 17:44 12/24/18 23:37 12/25/18 06:19 12/25/18 07:44 Bedside Glucose 151 199 135 White Blood Count 8.4 Red Blood Count 2.91 L Hemoglobin 7.6 L Hematocrit 24.8 L Mean Corpuscular 85.2 Volume Mean Corpuscular 26.1 L Hemoglobin Mean Corpuscular 30.6 L Hemoglobin Concent Red Cell 19.2 H Distribution Width Platelet Count 423 #H Mean Platelet 10.4 Volume Immature 0.500 H Granulocytes % Neutrophils % 73.0 Lymphocytes % 17.8 Monocytes % 5.4 Eosinophils % 2.5 Basophils % 0.8 Nucleated Red 0.0 Blood Cells % Immature 0.040 H Granulocytes # Neutrophils # 6.1 Lymphocytes # 1.5 Monocytes # 0.5 Eosinophils # 0.2 Basophils # 0.1 Nucleated Red 0.0 Blood Cells # Sodium Level 139 Potassium Level 4.4 Chloride Level 111 H Carbon Dioxide 25 Level Anion Gap 3 L Blood Urea 15 Nitrogen Creatinine 0.30 L Est Glomerular Filtrat Rate mL/min Glucose Level 144 Calcium Level 8.3 L Vancomycin Level 10.1 Trough Test 12/25/18 12:39 12/25/18 12:50 Lab Scanned Report REFERENCE LAB Bedside Glucose 144 Medications Medications Current Medications IV Flush (NS 10 ml) 10 ml Q8 IV Last administered on 12/25/18at 05:43; Admin Dose 10 ML; Start 11/26/18 at 22:00 Ascorbic Acid (Vitamin C) 500 mg DAILY GTB Last administered on 12/25/18at 08:07; Admin Dose 500 MG; Start 11/27/18 at 09:00 Baclofen (Lioresal) 20 mg TID GTB Last administered on 12/25/18at 12:57; Admin Dose 20 MG; Start 11/26/18 at 21:00 Cholecalciferol (Vitamin D) 2,000 unit DAILY GTB Last administered on 12/25/18at 08:07; Admin Dose 2,000 UNIT; Start 11/27/18 at 09:00 Cyanocobalamin (Vitamin B12) 1,000 mcg DAILY GTB Last administered on 12/25/18at 08:07; Admin Dose 1,000 MCG; Start 11/27/18 at 09:00 Miscellaneous Information 1 ea NOTE XX ; Start 11/26/18 at 18:30 Glucose (Glutose) 15 gm Q15M PRN PO DECREASED GLUCOSE; Start 11/26/18 at 18:30 Glucose (Glutose) 22.5 gm Q15M PRN PO DECREASED GLUCOSE; Start 11/26/18 at 18:30 Dextrose (D50w Syringe) 25 ml Q15M PRN IV DECREASED GLUCOSE; Start 11/26/18 at 18:30 Dextrose (D50w Syringe) 50 ml Q15M PRN IV DECREASED GLUCOSE; Start 11/26/18 at 18:30 Glucagon (Glucagen) 1 mg Q15M PRN IM DECREASED GLUCOSE; Start 11/26/18 at 18:30 Glucose (Glutose) 15 gm Q15M PRN BUCCAL DECREASED GLUCOSE; Start 11/26/18 at 18:30 Diagnostic Test (Pha) (Accu-Chek) 1 ea 02 XX Last administered on 12/11/18 01:49; Admin Dose 1 EA; Start 11/27/18 at 02:00 Lorazepam (Ativan) 1 mg Q2H PRN IV SEIZURES Last administered on 11/29/18 14:39; Admin Dose 1 MG; Start 11/27/18 at 18:00 Aspirin (Aspirin) 81 mg DAILY GTB Last administered on 12/25/18 08:07; Admin Dose 81 MG; Start 11/29/18 at 10:00 Levetiracetam 100 ml @ 400 mls/hr Q12 IVPB Last administered on 12/25/18 08:06; Admin Dose 400 MLS/HR; Start 11/29/18 at 21:00 Acetaminophen (Tylenol Liquid) 650 mg Q4H PRN GTB MILD PAIN(1-3)OR ELEVATED TEMP Last administered on 12/12/18 16:18; Admin Dose 650 MG; Start 12/03/18 at 02:00 Insulin Aspart (Novolog Insulin Pen) NOVOLOG *MILD* ALGORI... Q6 SC Last admi nistered on 12/25/18 12:58; Admin Dose 1 UNIT; Start 12/09/18 at 18:00 Alteplase, Recombinant (Cathflo (Activase)) 2 mg MAY REPEAT X1 PRN CATHETER IF CATHETER REMAINS OCCULUDED Last administered on 12/14/18 21:48; Admin Dose 2 MG; Start 12/09/18 at 23:30 Albuterol/ Ipratropium (Duoneb) 3 ml Q6HWA RESP THERAPY HHN Last administered on 12/25/18 08:40; Admin Dose 3 ML; Start 12/12/18 at 14:00 Albuterol/ Ipratropium (Duoneb) 3 ml Q4H RESP THERAPY PRN HHN SHORTNESS OF BREATH Last administered on 12/15/18 19:48; Admin Dose 3 ML; Start 12/12/18 at 12:30 Ceftazidime 50 ml @ 100 mls/hr Q8 IVPB Last administered on 12/25/18 05:43; Admin Dose 100 MLS/HR; Start 12/12/18 at 18:00 Metronidazole 100 ml @ 100 mls/hr Q8 IVPB Last administered on 12/25/18 06:16; Admin Dose 100 MLS/HR; Start 12/12/18 at 17:00 Collagenase (Santyl) 1 applic DAILY TOP Last administered on 12/25/18 08:06; Admin Dose 1 APPLIC; Start 12/13/18 at 10:30 Sodium Hypochlorite (Dakins Diluted (40)) 1 applic BID IRR Last administered on 12/25/18 08:07; Admin Dose 1 APPLIC; Start 12/17/18 at 22:00 Vancomycin HCl (Vanco Iv Per Pharmacy) VANCOMYCIN PER PHARMACY PER PROTOCOL XX ; Start 12/23/18 at 17:30 Amikacin Sulfate (Amikacin Iv Per Pharmacy) AMIKACIN PER PHARMACY NOTE XX ; Start 12/23/18 at 17:30 Vancomycin/Sodium Chloride 250 ml @ 125 mls/hr Q12H IVPB Last administered on 12/25/18 09:40; Admin Dose 125 MLS/HR; Start 12/24/18 at 08:00 Amikacin Sulfate 850 mg/Sodium Chloride 103.4 ml @ 102 mls/hr Q36H IVPB Last administered on 12/25/18 11:31; Admin Dose 102 MLS/HR; Start 12/25/18 at 11:30 MAITE VAZQUEZ December 25, 2018 13:45
--- NOTE | 2018-12-25 16:55 | PN ---
Date/Time of Note Date/Time of Note DATE: 12/25/18 TIME: 16:49 Assessment/Plan VTE Prophylaxis Risk score (from Ns)>0 risk: 3 SCD applied (from Ns): Yes Pharmacological prophylaxis: LMWH Lines/Catheters IV Catheter Type (from Nrs): PICC Line Central line still needed: Yes Urinary Cath still in place: Yes Reason Cath still needed: urinary retention Assessment/Plan Hospital Course Chest x-ray was new retrocardiac opacity suggesting the presence of atelectasis/infiltrate and small left pleural effusion. Patient with low-grade fever. Continue antibiotics per ID, pulmonary toilet and trach care. Plan of care discussed with case management. Assessment/Plan -Possible HCAP. Continue antibiotics per ID. Dr. Breaux is following in infection disease consultation. -Sepsis with Bacteroides fragilis bacteremia and wound infection. -Pseudomonal colonization of respiratory tract -New onset of seizures, continue Keppra. Dr. Sherman is following a neurology consultation. -Atrial fibrillation/ flutter with rapid ventricular response converted to sinus rhythm. Dr. Monson is following in cardiology consultation. 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 Triplett at [facility]. -Right hip wound infection with OM of R hip, completed treatment with antibiotics. -Wound dehiscence, s/p repeat debridement at [facility] on 11/03/2018. -Diabetes -Chronic diastolic CHF -Dysphagia with GT -Anemia of chronic disease -Failure to thrive, Dr. Prieto is following in palliative care consultation. -DNR/DNI status Further recommendations based on clinical course. Plan of care discussed with Dr. Shannon Result Diagram: 12/25/18 0744 12/25/18 0744 Results 24hrs Laboratory Tests Test 12/24/18 17:44 12/24/18 23:37 12/25/18 06:19 12/25/18 07:44 Bedside Glucose 151 199 135 White Blood Count 8.4 Red Blood Count 2.91 L Hemoglobin 7.6 L Hematocrit 24.8 L Mean Corpuscular 85.2 Volume Mean Corpuscular 26.1 L Hemoglobin Mean Corpuscular 30.6 L Hemoglobin Concent Red Cell 19.2 H Distribution Width Platelet Count 423 #H Mean Platelet 10.4 Volume Immature 0.500 H Granulocytes % Neutrophils % 73.0 Lymphocytes % 17.8 Monocytes % 5.4 Eosinophils % 2.5 Basophils % 0.8 Nucleated Red 0.0 Blood Cells % Immature 0.040 H Granulocytes # Neutrophils # 6.1 Lymphocytes # 1.5 Monocytes # 0.5 Eosinophils # 0.2 Basophils # 0.1 Nucleated Red 0.0 Blood Cells # Sodium Level 139 Potassium Level 4.4 Chloride Level 111 H Carbon Dioxide 25 Level Anion Gap 3 L Blood Urea 15 Nitrogen Creatinine 0.30 L Est Glomerular Filtrat Rate mL/min Glucose Level 144 Calcium Level 8.3 L Vancomycin Level 10.1 Trough Test 12/25/18 12:39 12/25/18 12:50 Lab Scanned Report REFERENCE LAB Bedside Glucose 144 Exam/Review of Systems Exam Vitals Vital Signs Date Temp Pulse Resp B/P (MAP) Pulse Ox O2 O2 Flow FiO2 Time Delivery Rate 12/25/18 104 19 96 10.0 40 14:00 12/25/18 99.1 104/59 13:13 (74) 12/25/18 T Tube 08:41 Intake and Output 12/24/18 12/24/18 12/25/18 1515:00 23:00 07:00 IntakeIntake Total 350 ml 200 ml OutputOutput Total 1000 ml 950 ml BalanceBalance -650 ml -750 ml Exam Constitutional: non-verbal, frail Neck: other (Tracheostomy) Respiratory: diminished breath sounds Cardiovascular: nl pulse Gastrointestinal: soft, non-tender, other (G-tube) Extremities: other (Contracted) Neurological: unresponsive Skin: other (Sacral and right hip wounds) Results Results 24hrs Laboratory Tests Test 12/24/18 17:44 12/24/18 23:37 12/25/18 06:19 12/25/18 07:44 Bedside Glucose 151 199 135 White Blood Count 8.4 Red Blood Count 2.91 L Hemoglobin 7.6 L Hematocrit 24.8 L Mean Corpuscular 85.2 Volume Mean Corpuscular 26.1 L Hemoglobin Mean Corpuscular 30.6 L Hemoglobin Concent Red Cell 19.2 H Distribution Width Platelet Count 423 #H Mean Platelet 10.4 Volume Immature 0.500 H Granulocytes % Neutrophils % 73.0 Lymphocytes % 17.8 Monocytes % 5.4 Eosinophils % 2.5 Basophils % 0.8 Nucleated Red 0.0 Blood Cells % Immature 0.040 H Granulocytes # Neutrophils # 6.1 Lymphocytes # 1.5 Monocytes # 0.5 Eosinophils # 0.2 Basophils # 0.1 Nucleated Red 0.0 Blood Cells # Sodium Level 139 Potassium Level 4.4 Chloride Level 111 H Carbon Dioxide 25 Level Anion Gap 3 L Blood Urea 15 Nitrogen Creatinine 0.30 L Est Glomerular Filtrat Rate mL/min Glucose Level 144 Calcium Level 8.3 L Vancomycin Level 10.1 Trough Test 12/25/18 12:39 12/25/18 12:50 Lab Scanned Report REFERENCE LAB Bedside Glucose 144 Medications Medication Current Medications IV Flush (NS 10 ml) 10 ml Q8 IV Last administered on 12/25/18at 05:43; Admin Dose 10 ML; Start 11/26/18 at 22:00 Ascorbic Acid (Vitamin C) 500 mg DAILY GTB Last administered on 12/25/18at 08:07; Admin Dose 500 MG; Start 11/27/18 at 09:00 Baclofen (Lioresal) 20 mg TID GTB Last administered on 12/25/18at 12:57; Admin Dose 20 MG; Start 11/26/18 at 21:00 Cholecalciferol (Vitamin D) 2,000 unit DAILY GTB Last administered on 12/25/18at 08:07; Admin Dose 2,000 UNIT; Start 11/27/18 at 09:00 Cyanocobalamin (Vitamin B12) 1,000 mcg DAILY GTB Last administered on 12/25/18at 08:07; Admin Dose 1,000 MCG; Start 11/27/18 at 09:00 Miscellaneous Information 1 ea NOTE XX ; Start 11/26/18 at 18:30 Glucose (Glutose) 15 gm Q15M PRN PO DECREASED GLUCOSE; Start 11/26/18 at 18:30 Glucose (Glutose) 22.5 gm Q15M PRN PO DECREASED GLUCOSE; Start 11/26/18 at 18:30 Dextrose (D50w Syringe) 25 ml Q15M PRN IV DECREASED GLUCOSE; Start 11/26/18 at 18:30 Dextrose (D50w Syringe) 50 ml Q15M PRN IV DECREASED GLUCOSE; Start 11/26/18 at 18:30 Glucagon (Glucagen) 1 mg Q15M PRN IM DECREASED GLUCOSE; Start 11/26/18 at 18:30 Glucose (Glutose) 15 gm Q15M PRN BUCCAL DECREASED GLUCOSE; Start 11/26/18 at 18:30 Diagnostic Test (Pha) (Accu-Chek) 1 ea 02 XX Last administered on 12/11/18 01:49; Admin Dose 1 EA; Start 11/27/18 at 02:00 Lorazepam (Ativan) 1 mg Q2H PRN IV SEIZURES Last administered on 11/29/18 14:39; Admin Dose 1 MG; Start 11/27/18 at 18:00 Aspirin (Aspirin) 81 mg DAILY GTB Last administered on 12/25/18 08:07; Admin Dose 81 MG; Start 11/29/18 at 10:00 Levetiracetam 100 ml @ 400 mls/hr Q12 IVPB Last administered on 12/25/18 08:06; Admin Dose 400 MLS/HR; Start 11/29/18 at 21:00 Acetaminophen (Tylenol Liquid) 650 mg Q4H PRN GTB MILD PAIN(1-3)OR ELEVATED TEMP Last administered on 12/12/18 16:18; Admin Dose 650 MG; Start 12/03/18 at 02:00 Insulin Aspart (Novolog Insulin Pen) NOVOLOG *MILD* ALGORI... Q6 SC Last administered on 12/25/18 12:58; Admin Dose 1 UNIT; Start 12/09/18 at 18:00 Alteplase, Recombinant (Cathflo (Activase)) 2 mg MAY REPEAT X1 PRN CATHETER IF CATHETER REMAINS OCCULUDED Last administered on 12/14/18 21:48; Admin Dose 2 MG; Start 12/09/18 at 23:30 Albuterol/ Ipratropium (Duoneb) 3 ml Q6HWA RESP THERAPY HHN Last administered on 12/25/18 13:59; Admin Dose 3 ML; Start 12/12/18 at 14:00 Albuterol/ Ipratropium (Duoneb) 3 ml Q4H RESP THERAPY PRN HHN SHORTNESS OF BREATH Last administered on 12/15/18 19:48; Admin Dose 3 ML; Start 12/12/18 at 12:30 Ceftazidime 50 ml @ 100 mls/hr Q8 IVPB Last administered on 12/25/18 14:43; Admin Dose 100 MLS/HR; Start 12/12/18 at 18:00 Metronidazole 100 ml @ 100 mls/hr Q8 IVPB Last administered on 12/25/18 14:43; Admin Dose 100 MLS/HR; Start 12/12/18 at 17:00 Collagenase (Santyl) 1 applic DAILY TOP Last administered on 12/25/18 08:06; Admin Dose 1 APPLIC; Start 12/13/18 at 10:30 Sodium Hypochlorite (Dakins Diluted (40)) 1 applic BID IRR Last administered on 12/25/18 08:07; Admin Dose 1 APPLIC; Start 12/17/18 at 22:00 Vancomycin HCl (Vanco Iv Per Pharmacy) VANCOMYCIN PER PHARMACY PER PROTOCOL XX ; Start 12/23/18 at 17:30 Amikacin Sulfate (Amikacin Iv Per Pharmacy) AMIKACIN PER PHARMACY NOTE XX ; Start 12/23/18 at 17:30 Vancomycin/Sodium Chloride 250 ml @ 125 mls/hr Q12H IVPB Last administered on 12/25/18 09:40; Admin Dose 125 MLS/HR; Start 12/24/18 at 08:00 Amikacin Sulfate 850 mg/Sodium Chloride 103.4 ml @ 102 mls/hr Q36H IVPB Last administered on 12/25/18 11:31; Admin Dose 102 MLS/HR; Start 12/25/18 at 11:30 LUIZ BRANNON December 25, 2018 16:55
[2018-12-25 20:17] VITALS: BP 108/52; PULSE 99; RESP 19
[2018-12-26 01:34] VITALS: BP 106/53; PULSE 86; RESP 18
[2018-12-26] MEDS: ACCU-CHEK XX SCH (01:36)
[2018-12-26] MEDS: CEFTAZIDIME 1GM/50 ML (PMX) 50 ML IVPB SCH ×3 (06:07→22:01)
[2018-12-26] MEDS: metroNIDAZOLE 500 MG/NS (PMX) 100 ML IVPB SCH ×3 (06:19→21:25)
[2018-12-26] MEDS: INSULIN ASPART [NOVOLOG] 3 ML PEN SC SCH ×4 (06:20→23:51)
[2018-12-26 07:25] VITALS: BP 120/53; PULSE 81; RESP 20
[2018-12-26] MEDS: VANCOMYCIN 750 MG (PMX) 250 ML IVPB SCH ×2 (08:52→19:54)
[2018-12-26] MEDS: COLLAGENASE 5 GM (UD JAR) TOP SCH (08:52)
[2018-12-26] MEDS: ASPIRIN 81 MG TAB GTB SCH (08:53)
[2018-12-26] MEDS: CYANOCOBALAMIN 500 MCG TAB GTB SCH (08:53)
[2018-12-26] MEDS: LEVETIRACETAM 1000 MG (PMX) 100 ML IVPB SCH ×2 (08:53→20:29)
[2018-12-26] MEDS: ASCORBIC ACID 500 MG TAB GTB SCH (08:53)
[2018-12-26] MEDS: BACLOFEN 10 MG TAB GTB SCH ×3 (08:53→20:29)
[2018-12-26] MEDS: CHOLECALCIFEROL 2,000 UNIT CAP GTB SCH (08:53)
[2018-12-26] MEDS: DAKINS 0.0125%(1/40) 473 ML SOLUTION IRR SCH ×2 (08:54→20:30)
[2018-12-26] MEDS: BALSAM PERU/CASTOR OIL 60 GM TUBE TOP SCH (08:54)
[2018-12-26] MEDS: ALBUTEROL/IPRATROPIUM (NEB) 3 ML AMP HHN SCH ×3 (09:23→19:38)
--- NOTE | 2018-12-26 10:52 | PN ---
Date/Time of Note Date/Time of Note DATE: 12/26/18 TIME: 10:48 Assessment/Plan VTE Prophylaxis Risk score (from Ns)>0 risk: 3 SCD applied (from Ns): Yes Pharmacological prophylaxis: NA/contraindicated Pharm contraindication: anticoag not tolerated Lines/Catheters IV Catheter Type (from Nrs): PICC Line Central line still needed: Yes Urinary Cath still in place: Yes Reason Cath still needed: urinary retention Assessment/Plan Hospital Course Patient ischial wound culture is now growing MDR Acinetobacter, continue antibiotics per ID. Patient with low-grade fever. Per CM meeting in the morning, mental health social worker to clarify with family re hospice care placement. Assessment/Plan -Possible HCAP. Continue antibiotics per ID. Dr. Breaux is following in infection disease consultation. -Sepsis with Bacteroides fragilis bacteremia and wound infection. -Pseudomonal colonization of respiratory tract -New onset of seizures, continue Keppra. Dr. Sherman is following a neurology consultation. -Atrial fibrillation/ flutter with rapid ventricular response converted to sinus rhythm. Dr. Monson is following in cardiology consultation. 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 Triplett at [facility]. -Right hip wound infection with OM of R hip, completed treatment with antibiotics. -Wound dehiscence, s/p repeat debridement at [facility] on 11/03/2018. -Diabetes -Chronic diastolic CHF -Dysphagia with GT -Anemia of chronic disease -Failure to thrive, Dr. Prieto is following in palliative care consultation. -DNR/DNI status Further recommendations based on clinical course. Plan of care discussed with Dr. Shannon Result Diagram: 12/25/18 0744 12/26/18 0450 Results 24hrs Laboratory Tests Test 12/25/18 12:39 12/25/18 12:50 12/25/18 18:16 12/25/18 23:51 Lab Scanned Report REFERENCE LAB Bedside Glucose 144 125 176 Test 12/26/18 04:50 12/26/18 06:19 Blood Urea 14 Nitrogen Creatinine 0.26 L Procalcitonin 2.01 H Bedside Glucose 152 Exam/Review of Systems Exam Vitals Vital Signs Date Temp Pulse Resp B/P (MAP) Pulse Ox O2 O2 Flow FiO2 Time Delivery Rate 12/26/18 98.0 81 20 120/53 100 Trach 07:25 (75) Collar 12/26/18 10.0 40 01:35 Intake and Output 12/25/18 12/25/18 12/26/18 1515:00 23:00 07:00 IntakeIntake Total 100 ml 1003.4 ml 250 ml OutputOutput Total 1000 ml 1100 ml BalanceBalance 100 ml 3.4 ml -850 ml Exam Constitutional: non-verbal, frail Neck: other (Tracheostomy) Respiratory: diminished breath sounds Cardiovascular: nl pulse Gastrointestinal: soft, non-tender, other (G-tube) Extremities: other (Contracted) Neurological: unresponsive Skin: other (Sacral and right hip wounds) Results Results 24hrs Laboratory Tests Test 12/25/18 12:39 12/25/18 12:50 12/25/18 18:16 12/25/18 23:51 Lab Scanned Report REFERENCE LAB Bedside Glucose 144 125 176 Test 12/26/18 04:50 12/26/18 06:19 Blood Urea 14 Nitrogen Creatinine 0.26 L Procalcitonin 2.01 H Bedside Glucose 152 Medications Medication Current Medications IV Flush (NS 10 ml) 10 ml Q8 IV Last administered on 12/26/18at 06:07; Admin Dose 10 ML; Start 11/26/18 at 22:00 Ascorbic Acid (Vitamin C) 500 mg DAILY GTB Last administered on 12/26/18at 08:53; Admin Dose 500 MG; Start 11/27/18 at 09:00 Baclofen (Lioresal) 20 mg TID GTB Last administered on 12/26/18at 08:53; Admin Dose 20 MG; Start 11/26/18 at 21:00 Cholecalciferol (Vitamin D) 2,000 unit DAILY GTB Last administered on 12/26/18at 08:53; Admin Dose 2,000 UNIT; Start 11/27/18 at 09:00 Cyanocobalamin (Vitamin B12) 1,000 mcg DAILY GTB Last administered on 12/26/18at 08:53; Admin Dose 1,000 MCG; Start 11/27/18 at 09:00 Miscellaneous Information 1 ea NOTE XX ; Start 11/26/18 at 18:30 Glucose (Glutose) 15 gm Q15M PRN PO DECREASED GLUCOSE; Start 11/26/18 at 18:30 Glucose (Glutose) 22.5 gm Q15M PRN PO DECREASED GLUCOSE; Start 11/26/18 at 18:30 Dextrose (D50w Syringe) 25 ml Q15M PRN IV DECREASED GLUCOSE; Start 11/26/18 at 18:30 Dextrose (D50w Syringe) 50 ml Q15M PRN IV DECREASED GLUCOSE; Start 11/26/18 at 18:30 Glucagon (Glucagen) 1 mg Q15M PRN IM DECREASED GLUCOSE; Start 11/26/18 at 18:30 Glucose (Glutose) 15 gm Q15M PRN BUCCAL DECREASED GLUCOSE; Start 11/26/18 at 18:30 Diagnostic Test (Pha) (Accu-Chek) 1 ea 02 XX Last administered on 12/11/18 01:49; Admin Dose 1 EA; Start 11/27/18 at 02:00 Lorazepam (Ativan) 1 mg Q2H PRN IV SEIZURES Last administered on 11/29/18 14:39; Admin Dose 1 MG; Start 11/27/18 at 18:00 Aspirin (Aspirin) 81 mg DAILY GTB Last administered on 12/26/18 08:53; Admin Dose 81 MG; Start 11/29/18 at 10:00 Levetiracetam 100 ml @ 400 mls/hr Q12 IVPB Last administered on 12/26/18 08:53; Admin Dose 400 MLS/HR; Start 11/29/18 at 21:00 Acetaminophen (Tylenol Liquid) 650 mg Q4H PRN GTB MILD PAIN(1-3)OR ELEVATED TEMP Last administered on 12/12/18 16:18; Admin Dose 650 MG; Start 12/03/18 at 02:00 Insulin Aspart (Novolog Insulin Pen) NOVOLOG *MILD* ALGORI... Q6 SC Last administered on 12/26/18 06:20; Admin Dose 1 UNIT; Start 12/09/18 at 18:00 Alteplase, Recombinant (Cathflo (Activase)) 2 mg MAY REPEAT X1 PRN CATHETER IF CATHETER REMAINS OCCULUDED Last administered on 12/14/18 21:48; Admin Dose 2 MG; Start 12/09/18 at 23:30 Albuterol/ Ipratropium (Duoneb) 3 ml Q6HWA RESP THERAPY HHN Last administered on 12/25/18 19:27; Admin Dose 3 ML; Start 12/12/18 at 14:00 Albuterol/ Ipratropium (Duoneb) 3 ml Q4H RESP THERAPY PRN HHN SHORTNESS OF BREATH Last administered on 12/15/18 19:48; Admin Dose 3 ML; Start 12/12/18 at 12:30 Ceftazidime 50 ml @ 100 mls/hr Q8 IVPB Last administered on 12/26/18 06:07; Admin Dose 100 MLS/HR; Start 12/12/18 at 18:00 Metronidazole 100 ml @ 100 mls/hr Q8 IVPB Last administered on 12/26/18 06:19; Admin Dose 100 MLS/HR; Start 12/12/18 at 17:00 Collagenase (Santyl) 1 applic DAILY TOP Last administered on 12/26/18 08:52; Admin Dose 1 APPLIC; Start 12/13/18 at 10:30 Sodium Hypochlorite (Dakins Diluted (140)) 1 applic BID IRR Last administered on 12/26/18 08:54; Admin Dose 1 APPLIC; Start 12/17/18 at 22:00 Vancomycin HCl (Vanco Iv Per Pharmacy) VANCOMYCIN PER PHARMACY PER PROTOCOL XX ; Start 12/23/18 at 17:30 Amikacin Sulfate (Amikacin Iv Per Pharmacy) AMIKACIN PER PHARMACY NOTE XX ; Start 12/23/18 at 17:30 Vancomycin/Sodium Chloride 250 ml @ 125 mls/hr Q12H IVPB Last administered on 12/26/18 08:52; Admin Dose 125 MLS/HR; Start 12/24/18 at 08:00 Amikacin Sulfate 850 mg/Sodium Chloride 103.4 ml @ 102 mls/hr Q36H IVPB Last administered on 12/25/18 11:31; Admin Dose 102 MLS/HR; Start 12/25/18 at 11:30 LUIZ BRANNON December 26, 2018 10:52
[2018-12-26 14:58] VITALS: BP 91/57; PULSE 84; RESP 18
--- NOTE | 2018-12-26 15:31 | CONS ---
Assessment/Plan Assessment/Plan Hospital Course (Demo Recall) # sepsis, endovascular infection, respiratory - recurrent sepsis due to bacteremia and pneumonia +/- wound infection. Procalcitonin was 1.96 on 12/07/2018 - leukocytosis and fever resolved - bacteremia d/t bacteroides fragilis 12/07/2018 possibly d/t intra-abdominal infection - VAP d/t pseudomonas 12/08/2018 and 12/13/2018 - s/p septic shock due to probable UTI - s/p coag negative Staph in blood cultures on 11/26/2018, probable contaminant - colonization of the airway by pseudomonas and corynebacteria on 11/26/2018; MDR pseudomonas in trach aspirate cx from 12/08/2018 likely a colonizer - h/o sepsis due to bacteremia and pneumonia - h/o bacteremia: blood cultures grew enterococcus faecalis on 09/17/2018 secondary to R hip wound infection as its wound culture on 09/16/2018 grew E. faecalis as well - h/o recurrent acute on chronic hypoxemic respiratory failure secondary to secretion retention, mucous plugging, major left lung atelectasis, severe shunting - h/o probable aspiration pneumonia. - h/o pneumonia due to pseudomonas on 09/30/2018. s/p Levaquin (10/03/18- 10/07/2018), Meropenem (restart 09/30/2018-10/03/18, 10/12/18 - 10/19/2018) and empiric Amikacin (09/30/18-10/03/18) - H/o intubation on 09/30/2018 - H/o tracheostomy on 10/04/2018 - h/o pseudomonas in urine culture on 09/17/2018 with mild pyuria; treated with Cefepime (09/20/2018-09/25/2018) # infection of wound, OM of R hip, pressure ulcer - colonization of the wound of R hip by pseudomonas (wound culture on 10/31/2018), acinetobacter (wound culture on 11/27/2018) - h/o repeat debridement at [facility] on 11/03/[address]. [address] Pierson, her plastic surgeon at [facility], the wound appeared clean during the I&D (my conversation with him on 11/06/2018) - H/o stage sacral decubitus ulcer extending to bilateral buttocks. She reportedly had total hip dislocation and exposed femoral head. CT pelvis showed e/o OM. Pt complete IV vancomycin (09/17/2018-10/29/2018) for sacral OM associated with E. faecalis - H/o sharp excisional debridement down to and including bone of the sacrum on 08/22/2018 and 09/19/2018 - H/o excision of R hip ulcer, girdlestone resection arthroplasty and flap reconstruction 09/23/2018. The surgical pathology showed osteomyelitis of R hip bone, soft tissue cellulitis, and bony margin of excision was free of the diseas e - according to Dr. Pierson who performed the wound debridement, Pt needs wound care until granulation tissue builds and infection is cleared. Then he would decide if Pt should get repeat closure or not - XR of R hip on 11/09/2009 showed the remaining R femoral shaft in transverse orientation and with lateral deviation - h/o removal of devitalized/necrotic tissue by Dr. Pierson on 10/07/2018 # renal/ - funguria, recurrent; Pt completed 3 day course of fluconazole (12/04-12/06/2018). Ramires was changed on 12/04/2018. - hematuria on 11/26/2018 - h/o moderate L hydronephrosis per renal US # heme, neuro - h/o acute on chronic anemia requiring PRBC - chronic metabolic encephalopathy - supranuclear palsy # endo, cardiac - diabetes mellitus - A fib with RVR - chronic diastolic HF (EF 40-45% with grade 1 DD per 2D Echo 10/24/2018) - h/o hypertension # allergy - penicillin allergy (throat swelling) but Pt tolerates cefepime, ceftazidime, meropenem Recommendations: - Family decision regarding hospice, per d/w MECCA Wilson pt is arranged for DC home with hospice for tomorrow at 10am. - F/u with christina cxs, preliminaries noted. - Continue Vancomycin (12/24/18 -) and Amikacin (12/24/18 -) - Continue Ceftazidime (12/12/2018 - ); s/p jose (restart 12/07-12/12/2018) and vancomycin (12/07-12/14/2018)-- through 12.26.18 - Continue Flagyl IV (for possible intra abdominal infection in result of blood cxs +Bacteroides fragilis)- through 12.26.18 Above plan d/w via [facility] Consultation Date/Type/Reason Admit Date/Time Nov 26, 2018 at 20:42 Initial Consult Date 11/27/18 Requesting Provider: NADEEN CHO Date/Time of Note DATE: 12/26/18 TIME: 15:29 24 HR Interval Summary Free Text/Dictation Per d/w MECCA Wilson pt is arranged for DC home with hospice for tomorrow at 10am. Cultures reviewed, wbc normal. Pt has remained afebrile and asymptomatic per d/w patients nurse Romeo. Subjective hx not possible: pt non-verbal Detailed Summary Additional Comments Unable to obtain due to chronic encephalopathy. Exam/Review of Systems Exam Vitals Vital Signs Date Temp Pulse Resp B/P (MAP) Pulse Ox O2 O2 Flow FiO2 Time Delivery Rate 12/26/18 89 18 100 Aerosol 10.0 40 12:02 T Tube 12/26/18 98.0 120/53 07:25 (75) Intake and Output 12/25/18 12/25/18 12/26/18 1515:00 23:00 07:00 IntakeIntake Total 100 ml 1003.4 ml 250 ml OutputOutput Total 1000 ml 1100 ml BalanceBalance 100 ml 3.4 ml -850 ml Exam Constitutional: non-verbal, frail Psych: confusion Head: normocephalic, atraumatic Eyes: nl conjunctiva, nl lids ENMT: nl external ears & nose, nl nasal mucosa & septum, mucosa pink and moist Neck: other (trach site c/d/i) Respiratory: clear to auscultation, normal air movement, on cool aerosol Cardiovascular: regular rate and rhythm, nl pulses. Gastrointestinal: soft, non-tender, other (GT site c/d/i) Genitourinary - Female: other (FC) Musculoskeletal: other (contractured, R hip wound covered with dressing c/d/i); No swelling Extremities: No edema Neurological: lethargic, unresponsive Skin: rash or lesions (multiple wounds including +R hip and coccyx wound covered with dressing c/d/i, photos reviewed) Neck: other (trach midline site c/d/i) Results Result Diagram: 12/25/18 0744 12/26/18 0450 Results 24hrs Laboratory Tests Test 12/25/18 18:16 12/25/18 23:51 12/26/18 04:50 12/26/18 06:19 Bedside Glucose 125 176 152 Blood Urea Nitrogen 14 Creatinine 0.26 L Procalcitonin 2.01 H Test 12/26/18 12:44 Bedside Glucose 122 Medications Medication Current Medications IV Flush (NS 10 ml) 10 ml Q8 IV Last administered on 12/26/18 13:27; Admin Dose 10 ML; Start 11/26/18 at 22:00 Ascorbic Acid (Vitamin C) 500 mg DAILY GTB Last administered on 12/26/18 08:53; Admin Dose 500 MG; Start 11/27/18 at 09:00 Baclofen (Lioresal) 20 mg TID GTB Last administered on 12/26/18 13:27; Admin Dose 20 MG; Start 11/26/18 at 21:00 Cholecalciferol (Vitamin D) 2,000 unit DAILY GTB Last administered on 12/26/18 08:53; Admin Dose 2,000 UNIT; Start 11/27/18 at 09:00 Cyanocobalamin (Vitamin B12) 1,000 mcg DAILY GTB Last administered on 12/26/18 08:53; Admin Dose 1,000 MCG; Start 11/27/18 at 09:00 Miscellaneous Information 1 ea NOTE XX ; Start 11/26/18 at 18:30 Glucose (Glutose) 15 gm Q15M PRN PO DECREASED GLUCOSE; Start 11/26/18 at 18:30 Glucose (Glutose) 22.5 gm Q15M PRN PO DECREASED GLUCOSE; Start 11/26/18 at 18:30 Dextrose (D50w Syringe) 25 ml Q15M PRN IV DECREASED GLUCOSE; Start 11/26/18 at 18:30 Dextrose (D50w Syringe) 50 ml Q15M PRN IV DECREASED GLUCOSE; Start 11/26/18 at 18:30 Glucagon (Glucagen) 1 mg Q15M PRN IM DECREASED GLUCOSE; Start 11/26/18 at 18:30 Glucose (Glutose) 15 gm Q15M PRN BUCCAL DECREASED GLUCOSE; Start 11/26/18 at 18:30 Diagnostic Test (Pha) (Accu-Chek) 1 ea 02 XX Last administered on 12/11/18 01:49; Admin Dose 1 EA; Start 11/27/18 at 02:00 Lorazepam (Ativan) 1 mg Q2H PRN IV SEIZURES Last administered on 11/29/18 14:39; Admin Dose 1 MG; Start 11/27/18 at 18:00 Aspirin (Aspirin) 81 mg DAILY GTB Last administered on 12/26/18 08:53; Admin Dose 81 MG; Start 11/29/18 at 10:00 Levetiracetam 100 ml @ 400 mls/hr Q12 IVPB Last administered on 12/26/18 08:53; Admin Dose 400 MLS/HR; Start 11/29/18 at 21:00 Acetaminophen (Tylenol Liquid) 650 mg Q4H PRN GTB MILD PAIN(1-3)OR ELEVATED TEMP Last administered on 12/12/18 16:18; Admin Dose 650 MG; Start 12/03/18 at 02:00 Insulin Aspart (Novolog Insulin Pen) NOVOLOG *MILD* ALGORI... Q6 SC Last administered on 12/26/18 06:20; Admin Dose 1 UNIT; Start 12/09/18 at 18:00 Alteplase, Recombinant (Cathflo (Activase)) 2 mg MAY REPEAT X1 PRN CATHETER IF CATHETER REMAINS OCCULUDED Last administered on 12/14/18 21:48; Admin Dose 2 MG; Start 12/09/18 at 23:30 Albuterol/ Ipratropium (Duoneb) 3 ml Q6HWA RESP THERAPY HHN Last administered on 12/25/18 19:27; Admin Dose 3 ML; Start 12/12/18 at 14:00 Albuterol/ Ipratropium (Duoneb) 3 ml Q4H RESP THERAPY PRN HHN SHORTNESS OF BREATH Last administered on 12/15/18 19:48; Admin Dose 3 ML; Start 12/12/18 at 12:30 Ceftazidime 50 ml @ 100 mls/hr Q8 IVPB Last administered on 12/26/18 13:27; Admin Dose 100 MLS/HR; Start 12/12/18 at 18:00 Metronidazole 100 ml @ 100 mls/hr Q8 IVPB Last administered on 12/26/18 13:27; Admin Dose 100 MLS/HR; Start 12/12/18 at 17:00 Collagenase (Santyl) 1 applic DAILY TOP Last administered on 12/26/18at 08:52; Admin Dose 1 APPLIC; Start 12/13/18 at 10:30 Sodium Hypochlorite (Dakins Diluted ()) 1 applic BID IRR Last administered on 12/26/18at 08:54; Admin Dose 1 APPLIC; Start 12/17/18 at 22:00 Vancomycin HCl (Vanco Iv Per Pharmacy) VANCOMYCIN PER PHARMACY PER PROTOCOL XX ; Start 12/23/18 at 17:30 Amikacin Sulfate (Amikacin Iv Per Pharmacy) AMIKACIN PER PHARMACY NOTE XX ; Start 12/23/18 at 17:30 Vancomycin/Sodium Chloride 250 ml @ 125 mls/hr Q12H IVPB Last administered on 12/26/18at 08:52; Admin Dose 125 MLS/HR; Start 12/24/18 at 08:00 Amikacin Sulfate 850 mg/Sodium Chloride 103.4 ml @ 102 mls/hr Q36H IVPB Last administered on 12/25/18at 11:31; Admin Dose 102 MLS/HR; Start 12/25/18 at 11:30 Miscellaneous Information (*Rx Drug Level Order Reminder*) AMIKACIN TROUGH AT 2230 ONCE ONCE XX ; Start 12/26/18 at 22:30; Stop 12/26/18 at 22:31 AGNES HERNANDEZ NP December 26, 2018 15:31
--- NOTE | 2018-12-26 20:10 | CONS ---
Assessment/Plan Assessment/Plan Hospital Course (Demo Recall) IMPRESSION: 1. Atrial fibrillation/atrial flutter with rapid ventricular response-IN SR when last on tele 2. Hypotension/shock state, likely septic. 3. History of cardiomyopathy with mildly depressed left ventricular ejection fraction approximately 40% to 45%. 4. History of congestive heart failure, systolic, chronic. 5. Possible pneumonia. 6. Sepsis. 7. Leukocytosis. 8. Anemia requiring transfusions. 9. Hypernatremia. 10. Coagulopathy. 11. Urinary tract infection. 12. Seizures Recc: -Now on med surg -serial ecg's -Continue abx's and f/u cx data -Continue keppra -Continue asa, follow for any bleeding complications -systemic anticoag held due to anemia requiring transfusions -check 12 lead ecg to document current rhyrthm, Consultation Date/Type/Reason Admit Date/Time Nov 26, 2018 at 20:42 Initial Consult Date 11/27/18 Type of Consult Cardiology Reason for Consultation AF Requesting Provider: NADEEN CHO Date/Time of Note DATE: 12/26/18 TIME: 20:08 Exam/Review of Systems Vital Signs Vitals Vital Signs Date Temp Pulse Resp B/P (MAP) Pulse Ox O2 O2 Flow FiO2 Time Delivery Rate 12/26/18 102 20 97 Aerosol 10.0 40 19:38 T Tube 12/26/18 98.0 91/57 (68) 14:58 Intake and Output 12/25/18 12/25/18 12/26/18 1515:00 23:00 07:00 IntakeIntake Total 100 ml 1003.4 ml 250 ml OutputOutput Total 1000 ml 1100 ml BalanceBalance 100 ml 3.4 ml -850 ml Exam Exam Review of Systems: CONSTITUTIONAL: No fevers, chills. PULMONARY: No sob CARDIOVASCULAR: No chest pain/palpitations GASTROINTESTINAL: No nausea/vomiting. GENITOURINARY: No hematuria/dysuria. MUSCULOSKELETAL: No myagias/arthalgias. PSYCHIATRIC: The patient denies depression. NEUROLOGIC: No weakness Constitutional: other (encephalopathic) Psych: no complaints Head: normocephalic ENMT: mucosa pink and moist Neck: supple, jvd (9 cm water), other (trached) Respiratory: diminished breath sounds (at bases/B) Cardiovascular: regular rate and rhythm Gastrointestinal: soft, non-tender Musculoskeletal: muscle weakness (generalized) Extremities: other (conracted) Labs Result Diagram: 12/25/18 0744 12/26/18 0450 Results 24hrs Laboratory Tests Test 12/25/18 23:51 12/26/18 04:50 12/26/18 06:19 12/26/18 12:44 Bedside Glucose 176 152 122 Blood Urea Nitrogen 14 Creatinine 0.26 L Procalcitonin 2.01 H Test 12/26/18 17:45 Bedside Glucose 123 Medications Medications Current Medications IV Flush (NS 10 ml) 10 ml Q8 IV Last administered on 12/26/18 13:27; Admin Dose 10 ML; Start 11/26/18 at 22:00 Ascorbic Acid (Vitamin C) 500 mg DAILY GTB Last administered on 12/26/18 08:53; Admin Dose 500 MG; Start 11/27/18 at 09:00 Baclofen (Lioresal) 20 mg TID GTB Last administered on 12/26/18 13:27; Admin Dose 20 MG; Start 11/26/18 at 21:00 Cholecalciferol (Vitamin D) 2,000 unit DAILY GTB Last administered on 12/26/18 08:53; Admin Dose 2,000 UNIT; Start 11/27/18 at 09:00 Cyanocobalamin (Vitamin B12) 1,000 mcg DAILY GTB Last administered on 12/26/18 08:53; Admin Dose 1,000 MCG; Start 11/27/18 at 09:00 Miscellaneous Information 1 ea NOTE XX ; Start 11/26/18 at 18:30 Glucose (Glutose) 15 gm Q15M PRN PO DECREASED GLUCOSE; Start 11/26/18 at 18:30 Glucose (Glutose) 22.5 gm Q15M PRN PO DECREASED GLUCOSE; Start 11/26/18 at 18:30 Dextrose (D50w Syringe) 25 ml Q15M PRN IV DECREASED GLUCOSE; Start 11/26/18 at 18:30 Dextrose (D50w Syringe) 50 ml Q15M PRN IV DECREASED GLUCOSE; Start 11/26/18 at 18:30 Glucagon (Glucagen) 1 mg Q15M PRN IM DECREASED GLUCOSE; Start 11/26/18 at 18:30 Glucose (Glutose) 15 gm Q15M PRN BUCCAL DECREASED GLUCOSE; Start 11/26/18 at 18:30 Diagnostic Test (Pha) (Accu-Chek) 1 ea 02 XX Last administered on 12/11/18 01:4 9; Admin Dose 1 EA; Start 11/27/18 at 02:00 Lorazepam (Ativan) 1 mg Q2H PRN IV SEIZURES Last administered on 11/29/18 14:39; Admin Dose 1 MG; Start 11/27/18 at 18:00 Aspirin (Aspirin) 81 mg DAILY GTB Last administered on 12/26/18 08:53; Admin Dose 81 MG; Start 11/29/18 at 10:00 Levetiracetam 100 ml @ 400 mls/hr Q12 IVPB Last administered on 12/26/18 08:53; Admin Dose 400 MLS/HR; Start 11/29/18 at 21:00 Acetaminophen (Tylenol Liquid) 650 mg Q4H PRN GTB MILD PAIN(1-3)OR ELEVATED TEMP Last administered on 12/12/18 16:18; Admin Dose 650 MG; Start 12/03/18 at 02:00 Insulin Aspart (Novolog Insulin Pen) NOVOLOG *MILD* ALGORI... Q6 SC Last administered on 12/26/18 06:20; Admin Dose 1 UNIT; Start 12/09/18 at 18:00 Alteplase, Recombinant (Cathflo (Activase)) 2 mg MAY REPEAT X1 PRN CATHETER IF CATHETER REMAINS OCCULUDED Last administered on 12/14/18 21:48; Admin Dose 2 MG; Start 12/09/18 at 23:30 Albuterol/ Ipratropium (Duoneb) 3 ml Q6HWA RESP THERAPY HHN Last administered on 12/26/18 19:38; Admin Dose 3 ML; Start 12/12/18 at 14:00 Albuterol/ Ipratropium (Duoneb) 3 ml Q4H RESP THERAPY PRN HHN SHORTNESS OF BREATH Last administered on 12/15/18 19:48; Admin Dose 3 ML; Start 12/12/18 at 12:30 Ceftazidime 50 ml @ 100 mls/hr Q8 IVPB Last administered on 12/26/18 13:27; Admin Dose 100 MLS/HR; Start 12/12/18 at 18:00 Metronidazole 100 ml @ 100 mls/hr Q8 IVPB Last administered on 12/26/18 13:27; Admin Dose 100 MLS/HR; Start 12/12/18 at 17:00 Collagenase (Santyl) 1 applic DAILY TOP Last administered on 12/26/18 08:52; Admin Dose 1 APPLIC; Start 12/13/18 at 10:30 Sodium Hypochlorite (Dakins Diluted ()) 1 applic BID IRR Last administered on 12/26/18 08:54; Admin Dose 1 APPLIC; Start 12/17/18 at 22:00 Vancomycin HCl (Vanco Iv Per Pharmacy) VANCOMYCIN PER PHARMACY PER PROTOCOL XX ; Start 12/23/18 at 17:30 Amikacin Sulfate (Amikacin Iv Per Pharmacy) AMIKACIN PER PHARMACY NOTE XX ; Start 12/23/18 at 17:30 Vancomycin/Sodium Chloride 250 ml @ 125 mls/hr Q12H IVPB Last administered on 12/26/18 19:54; Admin Dose 125 MLS/HR; Start 12/24/18 at 08:00 Amikacin Sulfate 850 mg/Sodium Chloride 103.4 ml @ 102 mls/hr Q36H IVPB Last administered on 12/25/18at 11:31; Admin Dose 102 MLS/HR; Start 12/25/18 at 11:30 Miscellaneous Information (*Rx Drug Level Order Reminder*) AMIKACIN TROUGH AT 2230 ONCE ONCE XX ; Start 12/26/18 at 22:30; Stop 12/26/18 at 22:31 MAITE VAZQUEZ December 26, 2018 20:10
[2018-12-26 20:40] VITALS: BP 154/90; PULSE 118; RESP 18
[2018-12-26] MEDS: SOD CHLORIDE 0.9% IVPB SCH (23:45)
[2018-12-26] MEDS: AMIKACIN IVPB SCH (23:45)
[2018-12-27] MEDS: ACCU-CHEK XX SCH (01:24)
[2018-12-27 02:21] VITALS: BP 105/58; PULSE 93; RESP 18
[2018-12-27] MEDS: ACETAMINOPHEN 650MG/20.3ML CUP GTB PRN (03:11)
[2018-12-27] MEDS: CEFTAZIDIME 1GM/50 ML (PMX) 50 ML IVPB SCH (06:17)
[2018-12-27] MEDS: metroNIDAZOLE 500 MG/NS (PMX) 100 ML IVPB SCH (06:18)
[2018-12-27] MEDS: INSULIN ASPART [NOVOLOG] 3 ML PEN SC SCH (06:28)
[2018-12-27 07:32] VITALS: BP 114/54; PULSE 90; RESP 19
[2018-12-27] MEDS: CHOLECALCIFEROL 2,000 UNIT CAP GTB SCH (08:25)
[2018-12-27] MEDS: BACLOFEN 10 MG TAB GTB SCH (08:26)
[2018-12-27] MEDS: CYANOCOBALAMIN 500 MCG TAB GTB SCH (08:26)
[2018-12-27] MEDS: VANCOMYCIN 750 MG (PMX) 250 ML IVPB SCH (08:26)
[2018-12-27] MEDS: ASPIRIN 81 MG TAB GTB SCH (08:26)
[2018-12-27] MEDS: ASCORBIC ACID 500 MG TAB GTB SCH (08:26)
[2018-12-27] MEDS: BALSAM PERU/CASTOR OIL 60 GM TUBE TOP SCH (08:27)
[2018-12-27] MEDS: DAKINS 0.0125%(1/40) 473 ML SOLUTION IRR SCH (08:27)
[2018-12-27] MEDS: COLLAGENASE 5 GM (UD JAR) TOP SCH (08:27)
[2018-12-27] MEDS: ALBUTEROL/IPRATROPIUM (NEB) 3 ML AMP HHN SCH (09:09)
[2018-12-27] MEDS ORDERED: (Nursing Note) XX SCH (10:00)
[2018-12-27] MEDS: LEVETIRACETAM 1000 MG (PMX) 100 ML IVPB SCH (11:05)
--- NOTE | 2018-12-27 18:54 | RADRPT ---
Vent Rate: 76 bpm RR Interval: 892 msec MT Interval: 145 msec QRS Duration: 75 msec QT Interval: 404 msec QTC Interval: 428 msec P-R-T Flushing: -15 - -29 - 26 degrees Sinus rhythm...normal P axis, V-rate 50- 99 Atrial premature complexes...SV complexes w/ short R-R intvls Inferior infarct, old...Q >35mS, II III aVF Electronically Signed By: Dariel Monson
--- NOTE | 2018-12-27 22:54 | DS ---
DATE OF ADMISSION: 11/26/2018 DATE OF DISCHARGE: 12/27/2018 DISCHARGE DIAGNOSES: 1. Possible health facility acquired pneumonia. 2. Recurrent sepsis. 3. Seizure. 4. Paroxysmal atrial fibrillation. 5. Chronic respiratory failure. 6. Progressive supranuclear palsy. 7. Dysphagia. 8. Chronic encephalopathy. 9. Multiple decubitus. 10. Chronic diastolic heart failure. 11. Diabetes. 12. Anemia of chronic disease. DISCHARGE MEDICATIONS: As per hospice. The patient has been admitted under home hospice. REASON FOR ADMISSION: The patient is a 73-year-old female with a progressive supranuclear palsy and has been bedbound for several years. The patient is contracted and has multiple decubitus requiring multiple extensive surgery including a Girdlestone procedure of the right hip with flap in September 07 followed by removal of necrotic tissue by Dr. Tong at [facility]. The patient also w as treated for osteomyelitis of the right hip. The patient was admitted because of sepsis, which was attributed to the wound infection, and pneumonia. The patient was seen by Dr. Breaux from infectiou s disease standpoint. The patient is also seen by Dr. Monson from cardiac standpoint. The patient remained nonverbal and bedbound with continued diminished quality of life. I spoke with the patient' s daughter, uLcy, and she requested home hospice. The patient on the day of discharge is breathi ng comfortably and requiring tracheostomy for suction. The patient today did not have any fever or c hills. No reported vomiting. PHYSICAL EXAMINATION: VITAL SIGNS: Temperature 97.9, pulse 69, respirations 18, blood pressure 114/54, O2 saturation 98% o n FIO2 of 40% with 10 liters oxygen flow rate. HEENT: No eye discharge or redness. Nose and ear is normal. NECK: Tracheostomy is in place. CHEST: Fairly clear. CARDIOVASCULAR: S1, S2 normal. ABDOMEN: Soft and nontender. EXTREMITIES: Contracted and atrophy. LABORATORY DATA: WBC 8.4, hemoglobin 7.6, platelet 423. Chemistry: Blood glucose today was 141. D uring her stay in the hospital, the patient was seen by Dr. Adams from palliative care standpoint. Family finally agreed for outpatient hospice. PROGNOSIS: Prognosis for the patient's recovery remains poor. Hospice will take over the care once she is admitted under home hospice. CONDITION ON DISCHARGE: Stable. Prognosis is poor. Dictated By: BRYON CARREON/AMBREEN Conf#: [id number] DID#: [id number] CC: BRYON MILLER MD; DOMI MCCALLUM MD; KASH BREAUX MD;*EndCC*
== END 2018-12-27 11:50 | disposition hospice, home (50) | DRG 871 ==
LOC: E/R 01:10 → EDBEDREQ 03:31 → EDBEDREQSVC 15:29 → EDBEDREQ 15:29 → ICU 20:42 → TEL 11-29 18:47 → 2NE 12-12 01:45
PROVIDERS: ADMIT Internal Medicine; ATTEND Internal Medicine
PROC: 02HV33Z Insertion of Infusion Device into Superior Vena Cava, Percutaneous Approach (ICD-10-PCS; principal; 2018-11-26)
PROC: 30233N1 Transfusion of Nonautologous Red Blood Cells into Peripheral Vein, Percutaneous Approach (ICD-10-PCS; 2018-11-27)
DX: A41.50 Gram-negative sepsis, unspecified (principal); L89.214 Pressure ulcer of right hip, stage 4; L89.154 Pressure ulcer of sacral region, stage 4; R65.21 Severe sepsis with septic shock; J18.9 Pneumonia, unspecified organism; G93.41 Metabolic encephalopathy; N39.0 Urinary tract infection, site not specified; G23.1 Progressive supranuclear ophthalmoplegia [Steele-Richardson-Olszewski]; I50.32 Chronic diastolic (congestive) heart failure; J96.10 Chronic respiratory failure, unspecified whether with hypoxia or hypercapnia; E44.0 Moderate protein-calorie malnutrition; E87.0 Hyperosmolality and hypernatremia; I48.92 Unspecified atrial flutter; I42.9 Cardiomyopathy, unspecified; R40.3 Persistent vegetative state; J95.851 Ventilator associated pneumonia; B96.5 Pseudomonas (aeruginosa) (mallei) (pseudomallei) as the cause of diseases classified elsewhere; B96.89 Other specified bacterial agents as the cause of diseases classified elsewhere; D63.8 Anemia in other chronic diseases classified elsewhere; I11.0 Hypertensive heart disease with heart failure; E11.9 Type 2 diabetes mellitus without complications; F03.90 Unspecified dementia, unspecified severity, without behavioral disturbance, psychotic disturbance, mood disturbance, and anxiety; G40.909 Epilepsy, unspecified, not intractable, without status epilepticus; I25.10 Atherosclerotic heart disease of native coronary artery without angina pectoris; I48.0 Paroxysmal atrial fibrillation; L08.9 Local infection of the skin and subcutaneous tissue, unspecified; B95.62 Methicillin resistant Staphylococcus aureus infection as the cause of diseases classified elsewhere; R13.10 Dysphagia, unspecified; R79.1 Abnormal coagulation profile; R62.7 Adult failure to thrive; Z66 Do not resuscitate; Z93.0 Tracheostomy status; Z93.1 Gastrostomy status; Z74.01 Bed confinement status; Z68.21 Body mass index [BMI] 21.0-21.9, adult; Z86.73 Personal history of transient ischemic attack (TIA), and cerebral infarction without residual deficits; Z87.440 Personal history of urinary (tract) infections; Z88.0 Allergy status to penicillin; Z79.82 Long term (current) use of aspirin; Z79.4 Long term (current) use of insulin
CPT/HCPCS: 36415; 36430; 36569; 70450; 70551; 71045; 74018; 76937; 80048; 80053; 80061; 80150; 80202; 80307; 81001; 82550; 82553; 82565; 82962; 83605; 83735; 84145; 84443; 84484; 84520; 85025; 85610; 85730; 86850; 86900; 86901; 86920; 87070; 87081; 87086; 89220; 93005; 94640; 94664; 95819; 96365; C1769; J0278; J0692; J0713; J0744; J1815; J1953; J1956; J2060; J2185; J2997; J3370; J7030; J7040; J7042; J7050; P9016